=== PATIENT | male | born 1960 | race Caucasian/White ===

== ENCOUNTER → 2020-07-01 10:40 | Outpatient (CLI) | payer OTHER, SELFPAY ==
[2020-07-01 12:37] LABS: Absolute Lymphocyte Count 1.71 X10^3/uL (0.83-4.51); Absolute Neutrophil Count 5.6 X10^3/uL (2.0-7.7); Basophil# 0.07 X10^3/uL; Basophil% 0.9 % (0-1); Eosinophils% 1.2 % (0-5); Hematocrit 44.1 % (40-54); Hemoglobin 14.6 g/dL (13.0-16.5); Lymphocyte # 1.71 X10^3/ul (4.0); Lymphocyte % 20.9 % (19-41); Mean Corp Hgb Conc 33.1 g/dL (32-36); Mean Corpuscular Hgb 28.7 pg (27.0-32.0); Mean Corpuscular Volume 86.8 fL (80-94); Mean Platelet Vol. 9.9 fl (6.2-12.0); Monocyte# 0.69 X10^3/uL; Monocyte% 8.4 % (0-10); NRBC Flagged by Analyzer 0 % (0-5); Neutrophil # 5.58 X10^3/uL (2.7-7.7); Neutrophil % 68.1 % (47-70); Platelet Count 333 K/mm3 (150-450); RBC Distribution Width CV 12.2 % (11.6-14.6); RBC Distribution Width SD 38.8 fl (35.1-43.9); Red Blood Count 5.08 M/mm3 (4.6-6.2); White Blood Count 8.2 K/mm3 (4.4-11.0)
[2020-07-01 13:06] LABS: AST(SGOT) 29 U/L (15-37); Alanine Aminotransfer ALT/SGPT 42 U/L (16-61); Albumin, Serum 3.7 g/dL (3.2-5.0); Alkaline Phosphatase 63 U/L (45-117); Anion Gap 8 (5-15); BUN 15 mg/dL (7-18); BUN/Creat Ratio 14.9 RATIO (10-20); Calcium,Total 8.3 mg/dL (8.5-10.1); Chloride 106 mmol/L (98-107); Cholesterol 160 mg/dL (200); Creatinine, Serum 1.01 mg/dL (0.70-1.30); EST Glomerular Filtration Rate 80 mL/min (>60); Est Glom Filt Rate - Afr Amer 97 mL/min (>60); Globulin 3.7 g/dL (2.2-4.2); Glucose 89 mg/dL (74-106); High Density Lipoprotein 59 mg/dL; PSA,Total - Annual Screen 0.62 ng/mL (0.00-4.00); Potassium 3.7 mmol/L (3.5-5.1); Protein, Total 7.4 g/dL (6.4-8.2); Sodium Level 138 mmol/L (136-145); T4 Free Direct 1.19 ng/dL (0.76-1.46); Thyroid Stim Hormone (TSH) 1.05 uIU/mL (0.358-3.74); Triglycerides 48 mg/dL; Very Low Density Lipoprotein 10 mg/dL (5-40)
== END ==
PROVIDERS: PCP Family Medicine; Referring Provider Family Medicine; Visit Provider Family Medicine
DX: Z00.00 Encounter for general adult medical examination without abnormal findings (principal); E04.1 Nontoxic single thyroid nodule; Z12.5 Encounter for screening for malignant neoplasm of prostate
CPT/HCPCS: 36415; 80053; 80061; 84153; 84439; 84443; 85025; G0103

== ENCOUNTER → 2020-07-14 12:35 | Outpatient (CLI) | payer OTHER, SELFPAY ==
--- NOTE | 2020-07-14 12:41 | US_ITS ---
STUDY: THYROID ULTRASOUND REASON FOR EXAM: Male, 59 years old. Nodule TECHNIQUE: Ultrasound evaluation of the thyroid was performed with real-time and static michelle-scale imaging. COMPARISON: None. FINDINGS: RIGHT LOBE: The right lobe of the thyroid gland measures 4.9 cm x 2.5 cm x 2.9 cm. There is a heterogeneous echotexture. There is a 7 mm x 9 mm x 7 mm cystic and solid nodule in the lower pole of the right lobe. LEFT LOBE: The left lobe of the thyroid gland measures 3.9 cm x 2.3 cm x 2.3 cm. There is a homogeneous echotexture. There are no demonstrated solid, cystic or complex lesions. ISTHMUS: The isthmus measures 6.0 mm. The regional lymph nodes are normal. US/Thyroid IMPRESSION: There is a 7 mm x 9 mm x 7 mm cystic and solid nodule in the lower pole of the right lobe of the thyroid Electronically Signed: Yimi Jensen, at 14:57 EST , Service support ,
== END ==
PROVIDERS: PCP Family Medicine; Referring Provider Family Medicine; Visit Provider Family Medicine
DX: E04.1 Nontoxic single thyroid nodule (principal)
CPT/HCPCS: 76536

== ENCOUNTER 2020-09-17 05:42 | Day surgery (SDC) | payer OTHER, SELFPAY ==
[2020-08-12 14:14] LABS: Probe Check PASS; Specimen Processing Control PASS
[2020-09-17] VITALS (8 sets, daily range): BP systolic 105–137; BP diastolic 62–88; PULSE 62–66; RESP 16; TEMP 36.2–36.7; O2SAT 92–100; BMI 27.8
--- NOTE | 2020-09-17 06:00 | PCM.HP.STD ---
Problem List (1) Screening for intestinal cancer Status: Acute History of Present Illness Date of Admission: 09/17/20 The patient is a 59 year old M who presents for screening colonoscopy today. He has no symptoms. He has not had a previous exam. He was to have this approximately 4 to 5 weeks ago but tested positive for COVID-19. He claims he was completely asymptomatic throughout that entire process. He is currently denying chest pain shortness of breath abdominal pain change in bowel habits. No history of DVT Past Medical History Allergies No Known Allergies Allergy (Verified 08/12/20 09:17) Home Medications: Ambulatory Orders Medication Instructions Recorded NK 08/12/20 Smoking Status: Never smoker Tobacco Use: Non-smoker Review of Systems Constitutional: Denies: Chills, Fever Respiratory: Denies: Cough, Shortness of Breath Gastrointestinal: Denies: Abdominal Pain, Nausea, Melena, Vomiting Endocrine: Denies: Change in Body Habitus VTE Information - Inpt Only VTE Present on Admission: No - Physical Exam General: Alert, Oriented x3, Cooperative, No apparent distress HEENT: Atraumatic Oral: Moist Mucosa Lungs: Clear to auscultation, Normal air movement Cardiovascular: Regular rate, Regular Rhythm Abdomen: Soft, Non Tender Extremities: No Calf Tenderness Psych/Mental Status: Normal Affect Assessment/Plan All Active Problems Screening for intestinal cancer (Acute) The patient presents for screening colonoscopy today. He has not had a previous. He presents via open access. He is aware of the technique, benefit, risk, alternatives. He has had an opportunity to ask and have questions answered. We will proceed as noted. Kalin Pulliam M.D., F.A.C.S.
[2020-09-17] MEDS: Lactated Ringers 1,000 ML 100 ML IV (06:14)
--- NOTE | 2020-09-17 06:30 | COLBX_PTH ---
PATIENT: AFSANEH NOVAK LOC: [facility] U#:[id number] AGE/SX: 59/M ROOM: RE09/17/[address]: Dr. Kalin Pulliam MD : 1960 BED: DIS: 09/17/2020 SPEC #: [id number] RECD: 09/17/20 11:26 STATUS: WENCESLAO PINONNika #: [id number] DARELL: 09/17/20 06:[address]: Kalin Pulliam DEPT: SURGICAL PATHOLOGY RECD BY: Ernestina Felipe ENTERED: 09/17/20 12:08 SP TYPE: COLON BX OTHR DR: Dr. Chilango Welsh MD Tissues: Cecum, NOS Procedures: Surgery Specimen Level IV HEADER OPERATION: Colonoscopy - open access (MOD) PRE-OP DIAGNOSIS: Screening for intestinal cancer TISSUE SUBMITTED: Cecal polyp MICROSCOPIC DIAGNOSIS Cecal polyp, biopsy: Fragments of tubular adenoma. SJ:emely 09/20/2020 MICROSCOPIC DESCRIPTION Slides are reviewed. GROSS DESCRIPTION Received in fixative is one container labeled with the patient's name and designated cecal polyp. The specimen consists of multiple irregular fragments of light vasquez soft tissue that in aggregate measure 2.5 x 0.3 x 0.1 cm. The specimen is totally submitted in one cassette. / SJ:emely 09/17/20 TC:1 CPT: 90412
--- NOTE | 2020-09-17 06:52 | OP.CCLET_ITS ---
09/17/2020 Chilango Welsh [address] [place] [address] Re : Colonoscopy procedure for Aaron Bowers Dear Dr. Welsh This procedure was performed on Thursday, September 17, 2020. My impressions and recommendations are as follows: Impressions : - Non-thrombosed external hemorrhoids, non-thrombosed internal hemorrhoids and internal hemorrhoids that prolapse with straining, but spontaneously regress to the resting position (Grade II) found on digital rectal exam. - One 11 mm polyp in the cecum, removed using injection-lift and a cold snare. Resected and retrieved. Forceps used to complete removal and hemostatic clip x 1 placed. No bleeding at completion -Minimal Diverticulosis in the sigmoid colon. - The examination was otherwise normal. Recommendations : - Discharge patient to home. - Resume previous diet. - Continue present medications. - Repeat colonoscopy in 5 years for surveillance based on pathology results. - Telephone my office for pathology results in 1 week. My findings are described in the full procedure note, which is enclosed. If I can be of further assistance, please feel free to contact me at Doctor phone number(s): Work: . Sincerely, Kalin Pulliam MD 09/17/2020 6:51:49 AM This report has been signed electronically.
--- NOTE | 2020-09-17 06:52 | OP.COLON_ITS ---
Patient Name: Aaron Bowers Procedure Date: 09/17/2020 6:16 AM Date of : 1960 Age: 59 Procedure: Colonoscopy Indications: Screening for colorectal malignant neoplasm, Screening in patient at increased risk: Family history of 1st-degree relative with colorectal cancer Providers: Kalin Pulliam MD Medicines: Midazolam 4 mg IV, Meperidine 100 mg IV Patient Profile: Last Colonoscopy: none. The patient's first colonoscopy is today. Complications: No immediate complications. Procedure: Pre-Anesthesia Assessment: - Prior to the procedure, a History and Physical was performed, and patient medications and allergies were reviewed. The patient's tolerance of previous anesthesia was also reviewed. The risks and benefits of the procedure and the sedation options and risks were discussed with the patient. All questions were answered, and informed consent was obtained. Prior Anticoagulants: The patient has taken no previous anticoagulant or antiplatelet agents. ASA Grade Assessment: II - A patient with mild systemic disease. After reviewing the risks and benefits, the patient was deemed in satisfactory condition to undergo the procedure. After I obtained informed consent, the scope was passed under direct vision. Throughout the procedure, the patient's blood pressure, pulse, and oxygen saturations were monitored continuously. The Colonoscope was introduced through the anus and advanced to the cecum, identified by appendiceal orifice and ileocecal valve. The colonoscopy was performed without difficulty. The patient tolerated the procedure well. The quality of the bowel preparation was good. The ileocecal valve and the appendiceal orifice were photographed. Moderate Sedation: Moderate (conscious) sedation was personally administered by the endoscopist. The following parameters were monitored: oxygen saturation, heart rate, blood pressure, and response to care. Total physician intraservice time was 15 minutes. Scope In: 6:28:42 AM Scope Withdrawal Time 0 hours 14 minutes 24 seconds Scope Out: 6:45:26 AM Total Procedure Duration Time 0 hours 16 minutes 44 seconds Findings: The digital rectal exam findings include non-thrombosed external hemorrhoids, non-thrombosed internal hemorrhoids and internal hemorrhoids that prolapse with straining, but spontaneously regress to the resting position (Grade II). Pertinent negatives include normal prostate (size, shape, and consistency). A 11 mm polyp was found in the cecum. The polyp was sessile. The polyp was removed with a saline injection-lift technique using a hot snare. Resection and retrieval were complete. A few diverticula were found in the sigmoid colon. The exam was otherwise without abnormality. Impression: - Non-thrombosed external hemorrhoids, non-thrombosed internal hemorrhoids and internal hemorrhoids that prolapse with straining, but spontaneously regress to the resting position (Grade II) found on digital rectal exam. - One 11 mm polyp in the cecum, removed using injection-lift and a cold snare. Resected and retrieved. Forceps used to complete removal and hemostatic clip x 1 placed. No bleeding at completion -Minimal Diverticulosis in the sigmoid colon. - The examination was otherwise normal. Recommendation: - Discharge patient to home. - Resume previous diet. - Continue present medications. - Repeat colonoscopy in 5 years for surveillance based on pathology results. - Telephone my office for pathology results in 1 week. Procedure Code(s): --- Professional --- 36496, Colonoscopy, flexible; with removal of tumor(s), polyp(s), or other lesion(s) by snare technique 65017, Colonoscopy, flexible; with directed submucosal injection(s), any substance 71901, 59, Moderate sedation services provided by the same physician or other qualified health day care center director performing the diagnostic or therapeutic service that the sedation supports, requiring the presence of an independent trained observer to assist in the monitoring of the patient's level of consciousness and physiological status; initial 15 minutes of intraservice time, patient age 5 years or older Diagnosis Code(s): --- Professional --- Z12.11, Encounter for screening for malignant neoplasm of colon Z80.0, Family history of malignant neoplasm of digestive organs K64.1, Second degree hemorrhoids K64.4, Residual hemorrhoidal skin tags D12.0, Benign neoplasm of cecum K57.30, Diverticulosis of large intestine without perforation or abscess without bleeding CPT copyright 2017 [employer]. All rights reserved. The codes documented in this report are preliminary and upon cena review may be revised to meet current compliance requirements. Kalin Pulliam MD 09/17/2020 6:51:49 AM This report has been signed electronically. Number of Addenda: 0 Note Initiated On: 09/17/2020 6:16 AM
== END 2020-09-17 07:52 | disposition home or self-care (01) ==
LOC: EN 05:43 → AC 05:43
PROVIDERS: PCP Family Medicine; Referring Provider Family Medicine; Visit Provider Surgery
PROC: 0DJD8ZZ Inspection of Lower Intestinal Tract, Via Natural or Artificial Opening Endoscopic (ICD-10-PCS; CPT 45378; principal; 2020-09-17 06:25)
DX: Z12.11 Encounter for screening for malignant neoplasm of colon (principal); D12.0 Benign neoplasm of cecum; K57.30 Diverticulosis of large intestine without perforation or abscess without bleeding; K64.1 Second degree hemorrhoids; K64.4 Residual hemorrhoidal skin tags; Z86.19 Personal history of other infectious and parasitic diseases; Z80.0 Family history of malignant neoplasm of digestive organs
CPT/HCPCS: 45381; 45385; 87426; 87635; 88305; 99152; 99153; C9803; J7120; A4216; U0002

== ENCOUNTER → 2021-01-10 08:22 | Outpatient (CLI) | payer OTHER, SELFPAY ==
[2020-09-17 06:01] VITALS: BMI 27.8
--- NOTE | 2021-01-10 08:25 | US_ITS ---
STUDY: THYROID ULTRASOUND REASON FOR EXAM: Male, 60 years old. Thyroid nodule. TECHNIQUE: Ultrasound evaluation of the thyroid was performed with real-time and static michelle-scale imaging. COMPARISON: Comparison is made with prior study of 07/14/2020. FINDINGS: RIGHT LOBE: The right lobe of the thyroid gland is enlarged and measures 5 cm x 1.8 cm x 2.4 cm. There is a homogeneous echotexture. There are 3 subcentimeter nodules in the right lobe. There is a 6 mm x 5 mm x 5 mm cyst. This also evidence of a 4 mm x 4 mm x 4 mm hypoechoic solid nodule as well as an 8 mm x 9 mm x 7 mm complex nodule in the lower pole. This is unchanged. LEFT LOBE: The left lobe of the thyroid gland measures 4.2 cm x 1.8 signed by 1.8 cm. There is a homogeneous echotexture. There are no demonstrated solid, cystic or complex lesions. ISTHMUS: The isthmus is enlarged and measures 8 mm. The regional lymph nodes are normal. US/Thyroid IMPRESSION: Enlarged right lobe of the thyroid with 3 subcentimeter nodules. There has been no change of the 8 mm x 9 mm x 7 mm solid and cystic nodule in the lower pole of the right lobe. Electronically Signed: Yimi Jensen MD at 10:00 EDT , Service support ,
== END ==
PROVIDERS: PCP Family Medicine; Referring Provider Family Medicine; Visit Provider Family Medicine
DX: E04.1 Nontoxic single thyroid nodule (principal)
CPT/HCPCS: 76536

== ENCOUNTER → 2021-07-14 11:03 | Outpatient (CLI) | payer OTHER, SELFPAY ==
[2021-07-14 12:42] LABS: PSA,Total - Annual Screen 0.67 ng/mL (0.00-4.00)
== END ==
PROVIDERS: PCP Family Medicine; Referring Provider Family Medicine; Visit Provider Family Medicine
DX: Z20.822 Contact with and (suspected) exposure to COVID-19 (principal); Z12.5 Encounter for screening for malignant neoplasm of prostate
CPT/HCPCS: 36415; 84153; 87635; U0005; G0103; U0003

== ENCOUNTER → 2022-04-12 | Outpatient (CLI) | payer OTHER, SELFPAY ==
[2022-04-12 09:29] LABS: Lyme Ab Screen Interpretation REF LAB
== END | disposition home or self-care (01) ==
LOC: MFPLAB 09:28
PROVIDERS: PCP Family Medicine; Referring Provider Family Medicine; Visit Provider Nurse Practitioner Family
DX: Z00.00 Encounter for general adult medical examination without abnormal findings (principal)
CPT/HCPCS: 36415; 86618

== ENCOUNTER → 2022-08-02 | Outpatient (CLI) | payer OTHER, SELFPAY ==
[2022-08-02 12:24] LABS: Absolute Lymphocyte Count 1.83 X10^3/uL (0.83-4.51); Basophil# 0.05 X10^3/uL; Basophil% 0.7 % (0-1); Eosinophil# 0.23 X10^3/uL; Eosinophils% 3.4 % (0-5); Hematocrit 44.9 % (40-54); Hemoglobin 15.3 g/dL (13.0-16.5); Lymphocyte # 1.83 X10^3/ul (0.83-4.51); Lymphocyte % 26.8 % (19-41); Mean Corp Hgb Conc 34.1 g/dL (32-36); Mean Corpuscular Hgb 29.8 pg (27.0-32.0); Mean Corpuscular Volume 87.4 fL (80-94); Mean Platelet Vol. 9.8 fl (6.2-12.0); Monocyte# 0.75 X10^3/uL; NRBC Flagged by Analyzer 0 % (0-5); Neutrophil # 3.96 X10^3/uL (2.7-7.7); Neutrophil % 57.8 % (47-70); Platelet Count 305 K/mm3 (150-450); RBC Distribution Width CV 12.8 % (11.6-14.6); RBC Distribution Width SD 40.4 fl (35.1-43.9); Red Blood Count 5.14 M/mm3 (4.6-6.2); White Blood Count 6.8 K/mm3 (4.4-11.0)
[2022-08-02 13:09] LABS: ALB/GLOB Ratio 1.2 RATIO (0.9-2.4); AST(SGOT) 25 U/L (15-37); Alanine Aminotransfer ALT/SGPT 29 U/L (16-61); Albumin, Serum 3.9 g/dL (3.2-5.0); Alkaline Phosphatase 66 U/L (45-117); Anion Gap 7 (5-15); BUN 17 mg/dL (7-18); BUN/Creat Ratio 17.9 RATIO (10-20); Calcium,Total 9.1 mg/dL (8.5-10.1); Chloride 104 mmol/L (98-107); Cholesterol 168 mg/dL (200); Creatinine, Serum 0.95 mg/dL (0.70-1.30); EST Glomerular Filtration Rate 85 mL/min (>60); Est Glom Filt Rate - Afr Amer 103 mL/min (>60); Globulin 3.2 g/dL (2.2-4.2); Glucose 88 mg/dL (74-106); High Density Lipoprotein 51 mg/dL; PSA,Total - Annual Screen 0.76 ng/mL (0.00-4.00); Potassium 4.1 mmol/L (3.5-5.1); Protein, Total 7.1 g/dL (6.4-8.2); Sodium Level 140 mmol/L (136-145); Thyroid Stim Hormone (TSH) 1.02 uIU/mL (0.358-3.74); Triglycerides 56 mg/dL; Very Low Density Lipoprotein 11 mg/dL (5-40)
== END | disposition home or self-care (01) ==
LOC: MFPLAB 10:59
PROVIDERS: PCP Family Medicine; Referring Provider Family Medicine; Visit Provider Family Medicine
DX: Z00.00 Encounter for general adult medical examination without abnormal findings (principal)
CPT/HCPCS: 36415; 80053; 80061; 84153; 84443; 85025; G0103

== ENCOUNTER → 2022-08-19 | Outpatient (CLI) | payer OTHER, SELFPAY ==
--- NOTE | 2022-08-19 07:52 | US_ITS ---
STUDY: THYROID ULTRASOUND REASON FOR EXAM: Male, 61 years old. THYROID NODULE TECHNIQUE: Ultrasound evaluation of the thyroid was performed with real-time and static michelle-scale imaging. COMPARISON: 01/10/2021. FINDINGS: RIGHT LOBE: The right lobe of the thyroid gland measures 5.1 x 2.1 x 2.6 cm. There is a homogeneous echotexture. Solid nodule in the right upper thyroid lobe measuring 0.5 x 0.3 x 0.4 cm, previously 0.4 x 0.4 x 0.4 cm. Anechoic cyst in the right mid thyroid lobe measuring 0.5 x 0.4 x 0.4 cm, previously 0.6 x 0.5 x 0.5 cm. Solid nodule in the right lower thyroid lobe measuring 0.8 x 0.9 x 0.7 cm, previously 0.8 x 0.9 x 0.7 cm. LEFT LOBE: The left lobe of the thyroid gland measures 4.2 x 1.7 x 2.2 cm. There is a homogeneous echotexture. There are no demonstrated solid, cystic or complex lesions. ISTHMUS: The isthmus measures 6 mm. US/Thyroid IMPRESSION: 1. Solid nodule in the right upper thyroid lobe measuring 0.5 x 0.3 x 0.4 cm, previously 0.4 x 0.4 x 0.4 cm. This nodule is moderately suspicious but no FNA or follow-up is necessary given the small size of this nodule. 2. Anechoic cyst in the right mid thyroid lobe measuring 0.5 x 0.4 x 0.4 cm, previously 0.6 x 0.5 x 0.5 cm. This nodule is benign and no FNA or follow-up is necessary. 3. Solid nodule in the right lower thyroid lobe measuring 0.8 x 0.9 x 0.7 cm, previously 0.8 x 0.9 x 0.7 cm. This is unchanged. This nodule is moderately suspicious but no FNA or follow-up is necessary given the small size of this nodule. 4. Normal left thyroid lobe and thyroid isthmus. Electronically Signed: Jason Barth MD at 12:57 EST ,
== END | disposition home or self-care (01) ==
LOC: US 07:50
PROVIDERS: PCP Family Medicine; Visit Provider Family Medicine
DX: E04.1 Nontoxic single thyroid nodule (principal)
CPT/HCPCS: 76536

== ENCOUNTER → 2023-08-07 | Outpatient (CLI) | payer OTHER, SELFPAY ==
[2023-08-07 10:12] LABS: Absolute Lymphocyte Count 1.86 X10^3/uL (0.83-4.51); Absolute Neutrophil Count 4.8 X10^3/uL (2.0-7.7); Basophil# 0.07 X10^3/uL; Basophil% 0.9 % (0-1); Eosinophil# 0.29 X10^3/uL; Eosinophils% 3.8 % (0-5); Hemoglobin 14.2 g/dL (13.0-16.5); Lymphocyte # 1.86 X10^3/ul (0.83-4.51); Lymphocyte % 24.1 % (19-41); Mean Corp Hgb Conc 32.3 g/dL (32-36); Mean Corpuscular Hgb 28.6 pg (27.0-32.0); Mean Corpuscular Volume 88.5 fL (80-94); Mean Platelet Vol. 9.7 fl (6.2-12.0); Monocyte# 0.61 X10^3/uL; Monocyte% 7.9 % (0-10); NRBC Flagged by Analyzer 0 % (0-5); Neutrophil # 4.84 X10^3/uL (2.7-7.7); Neutrophil % 62.7 % (47-70); Platelet Count 346 K/mm3 (150-450); RBC Distribution Width CV 12.5 % (11.6-14.6); RBC Distribution Width SD 40.1 fl (35.1-43.9); Red Blood Count 4.97 M/mm3 (4.6-6.2); White Blood Count 7.7 K/mm3 (4.4-11.0)
[2023-08-07 11:09] LABS: AST(SGOT) 18 U/L (15-37); Alanine Aminotransfer ALT/SGPT 27 U/L (16-61); Albumin, Serum 3.4 g/dL (3.2-5.0); Alkaline Phosphatase 62 U/L (45-117); Anion Gap 3 (5-15); BUN 14 mg/dL (7-18); Calcium,Total 8.2 mg/dL (8.5-10.1); Chloride 108 mmol/L (98-107); Cholesterol 154 mg/dL (200); Creatinine, Serum 0.93 mg/dL (0.70-1.30); EST Glomerular Filtration Rate 87 mL/min (>60); Est Glom Filt Rate - Afr Amer 105 mL/min (>60); Globulin 3.3 g/dL (2.2-4.2); Glucose 94 mg/dL (74-106); High Density Lipoprotein 45 mg/dL; PSA,Total - Annual Screen 0.99 ng/mL (0.00-4.00); Potassium 3.9 mmol/L (3.5-5.1); Protein, Total 6.7 g/dL (6.4-8.2); Sodium Level 140 mmol/L (136-145); Triglycerides 89 mg/dL; Very Low Density Lipoprotein 18 mg/dL (5-40)
== END | disposition home or self-care (01) ==
LOC: MFPLAB 08:46
PROVIDERS: PCP Family Medicine; Visit Provider Family Medicine
DX: Z00.00 Encounter for general adult medical examination without abnormal findings (principal); Z12.5 Encounter for screening for malignant neoplasm of prostate
CPT/HCPCS: 36415; 80053; 80061; 84153; 85025; G0103

== ENCOUNTER → 2023-10-17 | Outpatient (CLI) | payer OTHER, SELFPAY ==
--- OUTSIDE RECORDS SUMMARY | 2023-10-17 10:23 | XMS RPT_ITS | CCD ---
Author Name Unknown Address [address] [place] [address] Organization [facility] Care Team Providers Care Command And Control Name Role Phone Asaf HOANG Unavailable Unavailable MIAH PATINO Unavailable Unavailable Nina Hoang Unavailable Unavailable Nina Hoang Unavailable Unavailable Miah Patino Primary Care Provider JUAN MARS Admitting Unavailable JUAN MARS Attending Unavailable MIAH PATINO Primary Care Unavailable Richard Guzman [phone] Consulting Unavailable EUNICE GOLDSTEIN Consulting Unavailable MIAH PATINO Consulting Unavailable Miah Patino Primary Care Provider [phone] Miah Patino MD Primary Care Provider [phone] BIGG HOANG Referring Unavailable BIGG HOANG Admitting Unavailable MIAH PATINO Primary Care Unavailable MIAH PATINO Primary Care Unavailable BIGG HOANG Referring Unavailable BIGG HOANG Admitting Unavailable Unavailable Primary Care Provider UnavailBIGG Duron Admitting Unavailable BIGG HOANG Attending Unavailable MIAH PATINO Primary Care Unavailable No, Physician Primary Care Provider UnavailMiah Hayden MD Primary Care Provider Miah Trivedi MD Primary Care Provider Miah Trivedi MD Primary Care Provider Free, Text Entry Unavailable Unavailable Maya Brewer Unavailable Unavailable Bety Tanner Unavailable Unavailable Miah Trivedi MD Primary Care Provider MIAH TRIVEDI Primary Care Unavailable CASIE DENNIS Attending Unavailable MIAH TRIVEDI Primary Care Unavailable TALON SR Attending Unavailable Nina HOANG Attending Unavailable MIAH TRIVEDI Primary Care Unavailable Asaf HOANG Attending Unavailable MIAH TRIVEDI [facility] Unavailable Asaf HOANG Attending Unavailable Asaf HOANG Attending Unavailable [facility] MIAH [facility] Unavailable Medications Current Medications Medication Drug Class(es) Dates Sig (Normalized) Sig (Original) acetaminophen 325 mg / oxyCODONE hydrochloride 5 mg oral tablet (3 sources) Opioid Agonist Start: 10-17-2021 End: 10-24-2021 take 1 tablet by mouth every six hours as needed for pain oxyCODONE-acetami nophen (PERCOCET) 5-325 mg per tablet Indications: Left shoulder pain, unspecified chronicity Take 1 (one) tablet by mouth every 6 (six) hours as needed for pain 7 days supply . 28 tablet 0 10/17/2021 10/24/2021 Active [id number] 200 actuat albuterol 0.09 mg/actuat metered dose inhaler (1 source) beta2-Adrenergic Agonist Start: 07-24-2023 take 2 puff(s) by inhalation every six hours as needed for wheezing albuterol 90 mcg/actuation inhaler Inhale 2 (two) puffs every 6 (six) hours as needed for wheezing . 1 g 0 07/24/2023 Active amoxicillin 500 mg oral tablet (1 source) Penicillin-class Antibacterial Start: 02-25-2022 End: 03-10-2022 take 1 tablet by mouth three times daily at mealtime amoxicillin 500 mg oral tablet ; 1 tab(s) orally 3 times a day x 14 days. Take with food. Quantity: 42 Refills: 0 Ordered: 25-Feb-2022 Bety Tanner Start: 25-Feb-2022 End: 10-Mar-2022 Generic Substitution Allowed Comments: Finish all this medication unless otherwise directed by prescriber. Completed/Discontinued Medications Medication Drug Class(es) Dates Sig (Normalized) Sig (Original) azithromycin 250 mg oral tablet (2 sources) Macrolide Antimicrobial Start: 02-21-2022 End: 02-25-2022 azithromycin 250 mg oral tablet ; 2 tab(s) orally once a day on day 1, then 1 tablet orally on days 2-5 Quantity: 1 Refills: 0 Ordered: 21-Feb-2022 Maya Brewer Start: 21-Feb-2022 End: 25-Feb-2022 Status: Discontinued Generic Substitution Allowed Comments: Do not take dairy products, antacids, or iron preparations within one hour of this medication.Finish all this medication unless otherwise directed by prescriber. Problems Active Problems Problem Classification Problem Date Documented Date Episodic/Chronic Acute bronchitis (2 sources) Acute bronchitis due to other specified organisms; Translations: [Acute bronchitis due to other specified organisms] Onset: 07-24-2023 Episodic Blindness and vision defects (4 sources) Severe myopia; Translations: [Myopia, bilateral] Onset: 09-07-2014 Episodic Cataract (2 sources) Bilateral pseudophakia; Translations: [Presence of intraocular lens] Onset: 11-26-2019 Chronic Glaucoma (2 sources) Ocular hypertension; Translations: [Ocular hypertension, bilateral] Onset: 04-09-2019 04-09-2019 Chronic Immunizations and screening for infectious disease (2 sources) Contact with and (suspected) exposure to other viral communicable diseases; Translations: [Exposure to SARS-associated coronavirus] Episodic Inflammation; infection of eye (except that caused by tuberculosis or sexually transmitteddisease) (1 source) Bilateral punctate keratitis of eyes; Translations: [Punctate keratitis, bilateral] Onset: 05-27-2018 05-27-2018 Chronic Open wounds of extremities (2 sources) Laceration without foreign body of left little finger without damage to nail, initial encounter; Translations: [LAC W/O FB LT LF W/O DMG NAIL INIT] Onset: 12-18-2019 Episodic Osteoarthritis (20 sources) Bilateral arthritis of knees; Translations: [Bilateral primary osteoarthritis of knee] Onset: 10-04-2019 10-04-2019 Chronic Other eye disorders (2 sources) Optic cupping; Translations: [Glaucomatous optic atrophy, bilateral] Onset: 11-26-2019 Chronic Other eye disorders (1 source) Bilateral vitreous floaters; Translations: [Other vitreous opacities, bilateral] Onset: 10-24-2016 10-24-2016 Chronic Other eye disorders (1 source) Degenerative disorder of eye; Translations: [Degenerative myopia, bilateral] Onset: 05-27-2018 05-27-2018 Chronic Other infections; including parasitic (1 source) Erythema chronica migrans; Translations: [Lyme Disease] 02-25-2022 Episodic Other non-traumatic joint disorders (1 source) Pain in left knee; Translations: [Pain in left knee] Episodic Other non-traumatic joint disorders (4 sources) Shoulder pain; Translations: [Pain in left shoulder] Episodic Other non-traumatic joint disorders (1 source) Pain in right knee; Translations: [Right knee pain, unspecified chronicity] Other non-traumatic joint disorders (3 sources) Bilateral arthritis of knees; Translations: [Arthritis of both knees] Onset: 10-04-2019 10-04-2019 Other upper respiratory infections (1 source) Acute upper respiratory infection; Translations: [Acute upper respiratory infections of unspecified site] 02-21-2022 Episodic Retinal detachments; defects; vascular occlusion; and retinopathy (5 sources) Epiretinal membrane of right eye; Translations: [Puckering of macula, right eye] Onset: 10-24-2016 Chronic Unclassified (2 sources) SPIDER BITE 02-21-2022 Past or Other Problems Problem Classification Problem Date Documented Da te Episodic/Chronic E Codes: Natural/environment (2 sources) Bitten or stung by nonvenomous insect and other nonvenomous arthropods, initial encounter; Translations: [Bitten or stung by nonvenomous insect and other nonvenomous arthropods, initial encounter] Onset: 01-01-2023 Episodic Other eye disorders (1 source) Marginal corneal ulcer of right eye; Translations: [Marginal corneal ulcer, right eye] Onset: 05-09-2018 05-09-2018 Episodic Other eye disorders (1 source) H/O: L cataract extraction; Translations: [Cataract extraction status, left eye] Onset: 12-27-2018 12-27-2018 Episodic Other eye disorders (1 source) H/O: R cataract extraction; Translations: [Cataract extraction status, right eye] Onset: 01-23-2019 01-23-2019 Episodic Other non-traumatic joint disorders (2 sources) Pain in right shoulder; Translations: [Pain in right shoulder] Onset: 03-21-2017 Episodic Other non-traumatic joint disorders (20 sources) Disorder of shoulder; Translations: [Bursitis/tendoniti s, shoulder] Onset: 02-17-2016 02-17-2016 Episodic Sprains and strains (20 sources) Glenoid labrum tear; Translations: [Superior glenoid labrum lesion of unspecified shoulder, initial encounter] Onset: 03-21-2017 03-21-2017 Episodic Superficial injury; contusion (2 sources) Insect bite (nonvenomous), left thigh, initial encounter; Translations: [Insect bite (nonvenomous), left thigh, initial encounter] Onset: 01-01-2023 Episodic Results Test Name Value Interpretation Reference Range Facil ity Vital Signs Date Time Vital Sign Value Performing Clinician Facility 09-26-2023 12:58-0500 Body height 182.9 cm Asaf Hoang MD Work Phone: [facility] 09-26-2023 12:58-0500 Body mass index (BMI) [Ratio] 27.8 kg/m2 Asaf Hoang MD Work Phone: [facility] 09-26-2023 12:58-0500 Body weight 92.99 kg Asaf Hoang MD Work Phone: [facility] 10-18-2022 12:29-0500 Body height 182.9 cm Asaf Hoang MD Work Phone: [facility] 10-18-2022 12:29-0500 Body mass index (BMI) [Ratio] 27.12 kg/m2 Asaf Hoang MD Work Phone: [facility] 10-18-2022 12:29-0500 Body weight 90.72 kg Asaf Hoang MD Work Phone: [facility] 10-18-2022 12:29-0500 Respiratory rate 18 /min Asaf Hoang MD Work Phone: [facility] 04-19-2022 13:39-0400 Body mass index (BMI) [Ratio] 27.12 kg/m2 Asaf Hoang MD Work Phone: [facility] 04-19-2022 13:39-0400 Body weight 90.72 kg Asaf Hoang MD Work Phone: [facility] 02-25-2022 11:34-0400 Body height 182.8 cm Text Entry Free [facility] 02-25-2022 11:34-0400 Body temperature 98.24 [degF] Text Entry Free [facility] 02-25-2022 11:34-0400 Diastolic blood pressure 88 mm[Hg] Text Entry Free [facility] 02-25-2022 11:34-0400 Heart rate 71 /min Text Entry Free [facility] 02-25-2022 11:34-0400 Respiratory rate 16 /min Text Entry Free [facility] 02-25-2022 11:34-0400 SaO2% (BldA) [Mass fraction] 97 % Text Entry Free [facility] 02-25-2022 11:34-0400 Systolic blood pressure 142 mm[Hg] Text Entry Free [facility] 02-22-2022 15:38-0400 Body height 182.9 cm Asaf Hoang MD Work Phone: [facility] 02-22-2022 15:38-0400 Body mass index (BMI) [Ratio] 27.12 kg/m2 Asaf Hoang MD Work Phone: [facility] 02-22-2022 15:38-0400 Body weight 90.72 kg Asaf Hoang MD Work Phone: [facility] 01-25-2022 12:40-0400 Body height 182.9 cm Asaf Hoang MD Work Phone: [facility] 01-25-2022 12:40-0400 Body mass index (BMI) [Ratio] 27.12 kg/m2 Asaf Hoang MD Work Phone: [facility] 01-25-2022 12:40-0400 Body weight 90.72 kg Asaf Hoang MD Work Phone: [facility] 01-25-2022 12:40-0400 Respiratory rate 18 /min Asaf Hoang MD Work Phone: [facility] 12-30-2021 11:34-0400 Body height 182.9 cm Asaf Hoang MD Work Phone: [facility] 12-30-2021 11:34-0400 Body mass index (BMI) [Ratio] 27.12 kg/m2 Asaf Hoang MD Work Phone: [facility] 12-30-2021 11:34-0400 Body weight 90.72 kg Asaf Hoang MD Work Phone: [facility] 12-30-2021 11:34-0400 Respiratory rate 18 /min Asaf Hoang MD Work Phone: [facility] 11-30-2021 13:02-0400 Body height 182.9 cm Asaf Hoang MD Work Phone: [facility] 11-30-2021 13:02-0400 Body mass index (BMI) [Ratio] 27.12 kg/m2 Asaf Hoang MD Work Phone: [facility] 11-30-2021 13:02-0400 Body weight 90.72 kg Asaf Hoang MD Work Phone: [facility] 08-17-2021 15:02-0500 Body height 182.9 cm Asaf Hoang MD Work Phone: [facility] 08-17-2021 15:02-0500 Body mass index (BMI) [Ratio] 25.09 kg/m2 Asaf Hoang MD Work Phone: [facility] 08-17-2021 15:02-0500 Body weight 83.92 kg Asaf Hoang MD Work Phone: [facility] 08-17-2021 15:02-0500 Respiratory rate 18 /min Asaf Hoang MD Work Phone: [facility] 10-02-2019 13:04-0500 BMI (Body Mass Index) 25.09 kg/m2 Asaf Hoang [facility] 10-02-2019 13:04-0500 Body weight 83.92 kg Asaf Hoang [facility] 10-02-2019 13:04-0500 Height 182.9 cm Asaf Hoang [facility] 10-02-2019 13:04-0500 Respiratory Rate 16 /min Asaf Hoang [facility] Encounters Encounter Date Encounter Type Care Provider Facility Start: 10-02-2023 ambulatory Asaf HOANG [facility] Start: 09-26-2023 End: 09-26-2023 ambulatory Nina HOANG Facility:[facility] Start: 09-26-2023 End: 09-26-2023 Office outpatient visit 10 minutes Asaf Hoang MD Work Phone: [facility] Procedures Date Procedure Procedure Detail Performing Clinician Start: 09-26-2023 End: 09-26-2023 Arthrocentesis aspir&/inj major jt/bursa w/o us Asaf Hoang MD Work Phone: Start: 10-18-2022 Arthrocentesis aspir &/inj major jt/bursa w/o us Asaf Hoang MD Work Phone: Start: 12-15-2021 Computerized ophthal danette imaging retina Primo Tineo MD Work Phone: Start: 10-12-2021 Arthrocentesis aspir &/inj major jt/bursa w/o us Asaf Hoang MD Work Phone: Start: 08-18-2021 Arthrocentesis aspir &/inj major jt/bursa w/o us Asaf Hoang MD Work Phone: Start: 10-04-2019 End: 10-04-2019 Arthrocentesis Aasf Hoang Work Phone: Plan of Treatment Date Care Activity Detail Author Start: 12-17-2029 Tetanus vaccination Tetanus: Every 10yrs [facility] Start: 02-06-2028 Tetanus vaccination [facility] Start: 05-04-2023 Influenza vaccination Sequential Influenza Vaccine (#1) [facility] Start: 06-21-2022 End: 06-21-2022 Patient encounter procedure 06/21/2022 Office Visit Orthopedic Surgery Asaf Hoang MD [facility] [place] [address] [facility] Start: 05-04-2022 Influenza vaccination Sequential Influenza Vaccine (#1) [facility] Start: 04-19-2022 End: 04-19-2022 Patient encounter procedure 04/19/2022 Office Visit Orthopedic Surgery Asaf Hoang MD [facility] [place] [address] [facility] Start: 01-25-2022 End: 01-25-2022 Patient encounter procedure 01/25/2022 Office Visit Orthopedic Surgery Asaf Hoang MD [address] [place] [address] [facility] Start: 11-30-2021 End: 11-30-2021 Patient encounter procedure 11/30/2021 Office Visit Orthopedic Surgery Asaf Hoang MD [address] [place] [address] [facility] Start: 11-08-2021 End: 11-08-2021 Admission to same day surgery center 11/08/2021 Surgery Asaf Hoang MD [address] [place] [address] LEFT SHOULDER ARTHROSCOPY WITH ROTATOR CUFF REPAIR [facility] Payers Date Payer Category Payer Private Health Insurance AETNA A ETNA CHOICE POS/POSII/PREMIER CARE/PREMIER CARE PLUS xxxxxxxxxx 2019-Present xxxxxxxxxx [id number] 2019 Private Health Insurance [id number] 2019 Private Health Insurance AETNA A ETNA CHOICE POS/POSII/PREMIER CARE/PREMIER CARE PLUS [id number] 2019-Present [phone] [address] [place] [address] [id number] 2016 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 [id number] 2016-Present [id number] 2013 Unknown [id number] 1959 Unknown [id number] 1959 Unknown [id number] 1959 Unknown [id number] 1959 Unknown [id number] 1959 Unknown [id number] 1959 Unknown [id number] 1959 Unknown [id number] 1959 Unknown [id number] 1959 Unknown [id number] 1959 Private Health Insurance [id number] Unknown AETNA\[employer] Unknown [id number] Social History Date Type Detail Facility Start: 10-04-2019 End: 01-25-2022 Tobacco smoking status NHIS Never smoker [facility] Start: 10-04-2019 End: 09-26-2023 Alcohol intake Current non-drinker of alcohol (finding) [facility] Start: 1960 Sex Assigned At Not on file [facility] Start: 10-04-2019 End: 01-25-2022 Tobacco use and exposure Never used [facility] Start: 09-17-2021 End: 10-18-2022 Exposure to SARS-CoV-2 (event) Not sure [facility] Start: 10-24-2021 End: 11-03-2021 Exposure to SARS-CoV-2 (event) Yes [facility] Start: 01-25-2022 End: 01-01-2023 Cigarette pack-years [facility] Tobacco smoking consumption unknown [facility] Start: 01-01-2023 Tobacco use panel [facility] Start: 01-01-2023 Gender identity Identifies as male gender (finding) [facility] Start: 01-01-2023 Sexual orientation Heterosexual (finding) [facility] Medical Equipment Procedure Code Equipment Code Equipment Origin al Text Equipment Identifier Dates Arnett 1.3mm Sut ure 3 Ribbons Pro Rc Y-Knot - [id number] Start: 11-08-2021 Clinical Notes 05-27-2018 to 09-26-2023 Asaf Hoang MD - 09/26/2023 8:55 PM Asaf Pinto MD - 09/26/2023 8:54 PM Asaf Pinto MD - 09/26/2023 8:53 PM ESTJ. Kunal Hoang MD - 10/18/2022 3:59 PM ESTPatient Instructions Note Date & Type Note Facility 09-26-2023 History of Present illness Narrative Associated Order(s): LG Jt Injection/Arthrocentesis: L knee Post-Procedure Diagnose(s): Arthritis of both knees LG Jt Injection/Arthrocentesis: L knee Performed by: Asaf Hoang MD Authorized by: Asaf Hoang MD CPT [id number] - Large Joint Arthrocentesis: Consent given by: Patient Supporting Documentation: Indications: Pain Procedure Details: Location: Knee Site: L knee Needle size: 20 G Approach: Lateral Medications: 40 mg triamcinolone acetonide 40 mg/mL Anesthetic used: Lidocaine 1% Anesthetic amount (mL): 1 Patient tolerance: Patient tolerated the procedure well with no immediate complications Associated Order(s): LG Jt Injection/Arthrocentesis: R knee Post-Procedure Diagnose(s): Arthritis of both knees LG Jt Injection/Arthrocentesis: R knee Performed by: Asaf Hoang MD Authorized by: Asaf Hoang MD CPT [id number] - Large Joint Arthrocentesis: Consent given by: Patient Supporting Documentation: Indications: Pain Procedure Details: Location: Knee Site: R knee Needle size: 20 G Approach: Lateral Medications: 40 mg triamcinolone acetonide 40 mg/mL Anesthetic used: Lidocaine 1% Anesthetic amount (mL): 1 Patient tolerance: Patient tolerated the procedure well with no immediate complications Assessment/Plan: 1. Arthritis of both knees Exacerbation of bilateral knee arthritis Injection both knees Return if symptoms worsen or fail to improve. Subjective: Aaron Bowers is a 62 y.o. male here for Other (Bilateral knee pain) Established patient here today with increased pain in both knees. Pain worse with activity. 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 Denies trauma or injury. Right knee more symptomatic than left. Having a lot of anterior knee pain right knee.. The following portions of the patient's history were reviewed and updated as appropriate: allergies, current medications, past surgical history and problem list. Review of Systems Constitutional: Negative for appetite change, fatigue and fever. Respiratory: Negative for chest tightness and shortness of breath. Cardiovascular: Negative for chest pain and palpitations. Gastrointestinal: Negative for abdominal pain and blood in stool. Genitourinary: Negative for difficulty urinating and dysuria. Musculoskeletal: Positive for arthralgias and gait problem. Negative for back pain and myalgias. Neurological: Negative for speech difficulty and headaches. Psychiatric/Behavioral: Negative for confusion and hallucinations. Objective: Ht 6' Wt 93 kg (205 lb) BMI 27.80 kg/m Physical Exam Constitutional: Appearance: He is well-developed. HENT: Head: Normocephalic. Pulmonary: Effort: Pulmonary effort is normal. Musculoskeletal: Cervical back: Normal range of motion. Skin: General: Skin is warm. Neurological: Mental Status: He is alert and oriented to person, place, and time. Range of motion full both knees. Crepitation with flexion extension right greater than left. No instability noted of either knee Imaging from this visit: No results found. X-rays demonstrate arthritis of both knees left greater than right. Significant joint space narrowing medially on the left knee. Moderate patellofemoral disease bilateral Asaf Hoang MD 09/26/2023 documented in this encounter [facility] 10-18-2022 History of Present illness Narrative Associated Order(s): LG Jt Injection/Arthrocentesis: L knee Post-Procedure Diagnose(s): Arthritis of both knees LG Jt Injection/Arthrocentesis: L knee Performed by: Asaf Hoang MD Authorized by: Asaf Hoang MD CPT [id number] - Large Joint Arthrocentesis: Consent given by: Patient Supporting Documentation: Indications: Pain Procedure Details: Location: Knee Site: L knee Needle size: 20 G Approach: Lateral Medications: 40 mg triamcinolone acetonide 40 mg/mL Anesthetic used: Bupivacaine 0.5% Anesthetic amount (mL): 1 Patient tolerance: Patient tolerated the procedure well with no immediate complications documented in this encounter [facility] 04-20-2022 History of Present illness Narrative Assessment/Plan: 1. Traumatic tear of left rotator cuff, unspecified tear extent, subsequent encounter Gradual progress left shoulder status post rotator cuff repair at 5 months Continue gradual strengthening program Return in about 4 weeks (around 05/17/2022) for Recheck. Subjective: Aaron Bowers is a 61 y.o. male here for Other of the Left Shoulder (LT SHOULDER SCOPE WITH RC REPAIR 11/08) Patient is 5 months status post rotator cuff repair left shoulder. Patient has progressed well. Still working to get all of his strength back. Pain relief has been excellent.. The following portions of the patient's history were reviewed and updated as appropriate: allergies, current medications, past surgical history and problem list. Review of Systems Objective: Wt 90.7 kg (200 lb) BMI 27.12 kg/m Physical Exam Near full active abduction present. Patient has pain with forward flexion above 90 degrees. Strength 4+/5. Imaging from this visit: No results found. Asaf Hoang MD 04/20/2022 documented in this encounter [facility] 04-20-2022 History of Present illness Narrative Completed and faxed RTW eval. With continued restricition through 06/21/22 documented in this encounter [facility] 04-13-2022 History of Present illness Narrative Faxed updated work restrictions to the [facility] fax [phone] documented in this encounter [facility] 03-29-2022 History of Present illness Narrative Assessment/Plan: 1. Traumatic tear of left rotator cuff, unspecified tear extent, initial encounter Stable status post rotator cuff repair left shoulder Physical therapy per protocol Return in about 4 weeks (around 01/27/2022) for Recheck. Subjective: Aaron Bowers is a 61 y.o. male here for Post-op of the Left Shoulder (Scope 11/08/21) Patient is more than 6 weeks status post rotator cuff repair left shoulder. Recovering about as expected. He had a larger tear so recovery has been a bit slower than normal. The following portions of the patient's history were reviewed and updated as appropriate: allergies, current medications, past surgical history and problem list. Review of Systems Objective: Resp 18 Ht 6' Wt 90.7 kg (200 lb) BMI 27.12 kg/m Physical Exam Portals well-healed. Elevation to about 75 to 80 degrees. Passive motion nearly full Imaging from this visit: No results found. Asaf Hoang MD 03/29/2022 documented in this encounter [facility] 02-22-2022 History of Present illness Narrative Assessment/Plan: 1. Traumatic tear of left rotator cuff, unspecified tear extent, initial encounter Stable status post rotator cuff repair left Patient's PT has been restricted by a spider bite. Return in about 4 weeks (around 03/22/2022) for Recheck. Subjective: Aaron Bowers is a 61 y.o. male here for Follow-up of the Left Shoulder (Sx 11/08/21 doing well) 3 months plus from rotator cuff repair left large cuff tear. Progressing well. Therapy has been interrupted by his treatment for a spider bite that he sustained. The following portions of the patient's history were reviewed and updated as appropriate: allergies, current medications, past surgical history and problem list. Review of Systems Objective: Ht 6' Wt 90.7 kg (200 lb) BMI 27.12 kg/m Physical Exam Left shoulder shows near full active elevation. Abduction strength 4+/5 Imaging from this visit: No results found. Asaf Hoang MD 02/22/2022 documented in this encounter [facility] 01-27-2022 History of Present illness Narrative Assessment/Plan: 1. Traumatic tear of left rotator cuff, unspecified tear extent, initial encounter Improving left shoulder status post rotator cuff repair at 2 and half months Continue PT per protocol Return in about 4 weeks (around 02/22/2022) for Recheck. Subjective: Aaron Bowers is a 61 y.o. male here for Follow-up of the Left Shoulder (LT LUL SCOPE WITH RC REPAIR 11/08) 2 months plus status post rotator cuff repair. Pain improving. Strength and range of motion gradually improving.. The following portions of the patient's history were reviewed and updated as appropriate: allergies, current medications, past surgical history and problem list. Review of Systems Objective: Resp 18 Ht 6' Wt 90.7 kg (200 lb) BMI 27.12 kg/m Physical Exam Active elevation to about 115 degrees. Abduction strength 4+/5 Imaging from this visit: No results found. Asaf Hoang MD 01/27/2022 documented in this encounter [facility] 05-02-2022 History of Present illness Narrative PT referral with light weight training added faxed to [phone] per pt request documented in this encounter [facility] 12-15-2021 Note HNO ID: [id number] Author: Primo Tineo MD Service: ? Author Type: Physician Type: Progress Notes Filed: 12/15/2021 9:42 AM Note Text: Assessment and Plan 1. Epiretinal membrane (ERM) of right eye -stable with preserved foveal contour 2. Optic cupping of both eyes 3. 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 Pseudophakia of both eyes -stable Plan: -doing well overall -continue follow-up Dr. Salas. Me as needed I have confirmed and edited as necessary the relevant ophthalmic history, ROS, and the neuro exam findings as obtained by others. I have seen and examined Aaron Bowers. I have discussed the case and the management of this patient's care with the Resident/Fellow, if applicable. I also have reviewed and agree with the assessment and plan as stated above and agree with all of its relevant components. Primo Tineo MD December 15, 2021 9:30 AM [facility] 12-15-2021 History of Present illness Narrative Assessment and Plan 1. Epiretinal membrane (ERM) of right eye -stable with preserved foveal contour 2. Optic cupping of both eyes 3. 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 Pseudophakia of both eyes -stable Plan: -doing well overall -continue follow-up Dr. Salas. Me as needed I have confirmed and edited as necessary the relevant ophthalmic history, ROS, and the neuro exam findings as obtained by others. I have seen and examined Aaron Bowers. I have discussed the case and the management of this patient's care with the Resident/Fellow, if applicable. I also have reviewed and agree with the assessment and plan as stated above and agree with all of its relevant components. Primo Tineo MD December 15, 2021 9:30 AM documented in this encounter [facility] 12-15-2021 Instructions Primo Tineo MD - 12/15/2021 9:30 AM EDT Images from the original note were not included. P documented in this encounter [facility] 12-05-2021 History of Present illness Narrative Faxed PT order to [facility] PT fax [phone] documented in this encounter [facility] 12-01-2021 History of Present illness Narrative Assessment/Plan: 1. Traumatic tear of left rotator cuff, unspecified tear extent, initial encounter Stable status post rotator cuff repair left shoulder Begin formal PT next week. Instructed on a home exercise program Return in about 4 weeks (around 12/28/2021) for Recheck. Subjective: Aaron Bowers is a 61 y.o. male here for Suture / Staple Removal of the Left Shoulder (LT SHOULDER RC REPAIR 11/08) Patient is approximately 3 weeks status post rotator cuff repair left shoulder. The tear was a relatively large tear but was repairable and we felt good about the quality of our repair.. The following portions of the patient's history were reviewed and updated as appropriate: allergies, current medications, past surgical history and problem list. Review of Systems Objective: Ht 6' Wt 90.7 kg (200 lb) BMI 27.12 kg/m Physical Exam Portals well-healed. Neurologically intact Imaging from this visit: No results found. Asaf Hoang MD 12/01/2021 documented in this encounter [facility] 11-04-2021 History of Present illness Narrative refaxed corrected FMLA with date of 10/17/21 as first day off to fax [phone] documented in this encounter [facility] 11-02-2021 History of Present illness Narrative Completed FMLA form and emailed to patient documented in this encounter [facility] 10-17-2021 History of Present illness Narrative Referral faxed to [facility] for MRI documented in this encounter [facility] 10-12-2021 History of Present illness Narrative Associated Order(s): LG Jt Injection/Arthrocentesis: L knee Post-Procedure Diagnose(s): Arthritis of both knees LG Jt Injection/Arthrocentesis: L knee Performed by: Asaf Hoang MD Authorized by: Asaf Hoang MD CPT 62637 - Large Joint Arthrocentesis: Consent given by: Patient Supporting Documentation: Indications: Pain Procedure Details: Location: Knee Site: L knee Needle size: 20 G Approach: Lateral Medications: 80 mg triamcinolone acetonide 40 mg/mL Anesthetic used: Lidocaine 1% Anesthetic amount (mL): 1 Patient tolerance: Patient tolerated the procedure well with no immediate complications Assessment/Plan: 1. Arthritis of both knees Exacerbation arthritic symptoms left knee Injection left knee Return if symptoms worsen or fail to improve. Subjective: Aaron Bowers is a 61 y.o. 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 Injection in his knee has worn off. Here today requesting a repeat injection to help him get through the season. The following portions of the patient's history were reviewed and updated as appropriate: allergies, current medications, past surgical history and problem list. Review of Systems Objective: There were no vitals taken for this visit. Physical Exam Mild effusion. Range of motion full. Imaging from this visit: No results found. Asaf Hoang MD 10/12/2021 documented in this encounter [facility] 08-18-2021 History of Present illness Narrative Associated Order(s): LG Jt Injection/Arthrocentesis: L knee Post-Procedure Diagnose(s): Arthritis of both knees LG Jt Injection/Arthrocentesis: L knee Performed by: Asaf Hoang MD Authorized by: Asaf Hoang MD CPT [id number] - Large Joint Arthrocentesis: Consent given by: Patient Supporting Documentation: Indications: Pain Procedure Details: Location: Knee Site: L knee Needle size: 20 G Approach: Lateral Medications: 80 mg methylPREDNISolone acetate 40 mg/mL Anesthetic used: Lidocaine 1% Anesthetic amount (mL): 1 Patient tolerance: Patient tolerated the procedure well with no immediate complications Assessment/Plan: 1. Arthritis of both knees Symptomatic medial compartment arthritis of the left knee Discussed options and elected to inject the left knee to help Derick get through the basketball season Return if symptoms worsen or fail to improve. Subjective: Aaron Bowers is a 60 y.o. male here for Procedure of the Left Knee (LEFT KNEE INJECTION. LAST ONE 10/02/19) Ongoing left knee pain. 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 He has had increasing difficulty with his left knee. Has not reinjured the knee. Is having pain primarily in the medial aspect of his knee.. The following portions of the patient's history were reviewed and updated as appropriate: allergies, current medications, past surgical history and problem list. Review of Systems Constitutional: Negative for appetite change, fatigue and fever. Respiratory: Negative for chest tightness and shortness of breath. Cardiovascular: Negative for chest pain and palpitations. Gastrointestinal: Negative for abdominal pain and blood in stool. Genitourinary: Negative for difficulty urinating and dysuria. Musculoskeletal: Positive for arthralgias and joint swelling. Negative for back pain, gait problem and myalgias. Neurological: Negative for speech difficulty and headaches. Psychiatric/Behavioral: Negative for confusion and hallucinations. Objective: Resp 18 Ht 6' Wt 83.9 kg (185 lb) BMI 25.09 kg/m Physical Exam Constitutional: Appearance: He is well-developed and well-nourished. HENT: Head: Normocephalic. Eyes: Extraocular Movements: EOM normal. Pulmonary: Effort: Pulmonary effort is normal. Musculoskeletal: Cervical back: Normal range of motion. Skin: General: Skin is warm. Neurological: Mental Status: He is alert and oriented to person, place, and time. Psychiatric: Mood and Affect: Mood and affect normal. Pain to palpation medial joint space left knee. Range of motion full. No instability. Equivocal José Antonio's. Imaging from this visit: No results found. X-rays obtained today show mild to moderate medial joint space narrowing on the left. There is mild patellofemoral arthrosis of both knees. Asaf Hoang MD 08/18/2021 documented in this encounter [facility] documented as of this encounter (statuses as of 12/15/2021) [facility] Left knee pain, unspecified chronicity- Primary [facility] Diagnosis Arthritis of both knees- Primary [facility] Diagnosis Arthritis of both knees- [facility] Diagnosis Left shoulder pain, unspecified chronicity- Primary [facility] Diagnosis Left shoulder pain, unspecified chronicity- Primary [facility] Diagnosis Left shoulder pain, unspecified chronicity- Primary [facility] Diagnosis Traumatic tear of left rotator cuff- Primary Exposure to SARS-associated coronavirus- Primary Traumatic tear of left rotator cuff, unspecified tear extent, initial encounter [facility] Diagnosis Traumatic tear of left rotator cuff- Primary Exposure to SARS-associated coronavirus- Primary [facility] Diagnosis Traumatic tear of left rotator cuff, unspecified tear extent, initial encounter- Primary [facility] Diagnosis Traumatic tear of left rotator cuff, unspecified tear extent, initial encounter- Primary documented in this encounter [facility] note* Diagnosis Epiretinal membrane (ERM) of right eye- Primary Optic cupping of both eyes High myopia, bilateral Myopia Pseudophakia of both eyes Lens replaced by other means [facility] Diagnosis Traumatic tear of left rotator cuff, unspecified tear extent, initial encounter- Primary documented in this encounter [facility] note* Diagnosis Traumatic tear of left rotator cuff, unspecified tear extent, initial encounter- Primary documented in this encounter [facility] note* Diagnosis Traumatic tear of left rotator cuff, unspecified tear extent, subsequent encounter- Primary documented in this encounter [facility] note* Diagnosis Arthritis of both knees- Primary documented in this encounter [facility] note* Diagnosis Arthritis of both knees- Primary documented in this encounter [facility] Purpose Family History No Family History Records FoundNo Family History Records FoundNo Family History Records FoundNo Family History Records FoundNo Family History Records FoundNo Family History Records FoundNo Family History Records FoundNo Family History Records FoundNo Family History Records FoundNo Family History Records FoundNo Family History Records FoundNo Family History Records Found Advance Directives No Advanced Directives Records FoundDocuments on File Type Date Recorded Patient Electronic Device Monitor Expl anation Advance Directives and Living Will Documents on File Type Date Recorded Patient Electronic Device Monitor Expl anation Advance Directives and Living Will Documents on File Type Date Recorded Patient Electronic Device Monitor Expl anation Advance Directives and Livin g Will 11/08/2021 7:28 AM Documents on File Type Date Recorded Patient Electronic Device Monitor Expl anation Advance Directives and Livin g Will 11/08/2021 7:28 AM History of Present Illness * Asaf Hoang MD - 10/04/2019 9:00 AM EST Associated Order(s): LG Jt Injection/Arthrocentesis: L knee Post-Procedure Diagnose(s): Arthritis of both knees LG Jt Injection/Arthrocentesis: L knee Performed by: Asaf Hoang MD Authorized by: Asaf Hoang MD CPT [id number] - Large Joint Arthrocentesis: Consent given by: Patient Supporting Documentation: Indications: Pain Procedure Details: Location: Knee Site: L knee Needle size: 20 G Approach: Lateral Medications: 80 mg methylPREDNISolone acetate 40 mg/mL Anesthetic used: Lidocaine 1% Anesthetic amount (mL): 1 Patient tolerance: Patient tolerated the procedure well with no immediate complications * Asaf Hoang MD - 10/04/2019 8:59 AM EST Associated Order(s): LG Jt Injection/Arthrocentesis Post-Procedure Diagnose(s): Arthritis of both knees LG Jt Injection/Arthrocentesis Performed by: Asaf Hoang MD Authorized by: Asaf Hoang MD CPT [id number] - Large Joint Arthrocentesis: Consent given by: Patient Supporting Documentation: Indications: Pain Procedure Details: Location: Knee Needle size: 20 G Approach: Lateral Medications: 80 mg methylPREDNISolone acetate 40 mg/mL Anesthetic used: Lidocaine 1% Anesthetic amount (mL): 1 Patient tolerance: Patient tolerated the procedure well with no immediate complications * Asaf Hoang MD - 10/04/2019 8:57 AM EST Assessment/Plan: 1. Right knee pain, unspecified chronicity celecoxib (CELEBREX) 200 MG capsule CANCELED: XR Knee Right 4+VWS (Note in Comments) 2. Arthritis of both knees Symptomatic knee arthritis bilateral moderate Injection both knees Return if symptoms worsen or fail to improve. Subjective: Aaron Bowers is a 59 y.o. male here for Procedure of the Left Knee (Pt is wanting left knee injection, possibly both knees. ) Established patient pain both knees left greater than right. 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 Started to have activity related pain again in both knees. No specific injury.. No Known Allergies Outpatient Medications as of 10/02/2019 Medication Sig [DISCONTINUED] celecoxib (CELEBREX) 200 MG capsule Take 200 mg by mouth 2 (two) times a day History reviewed. No pertinent past medical history. Past Surgical History: Procedure Laterality Date KNEE SURGERY left scope Social History Socioeconomic History Marital status: Spouse name: Not on file Number of children: Not on file Years of education: Not on file Highest education level: Not on file Occupational History Not on file Social Needs Financial resource strain: Not on file Food insecurity Worry: Not on file Inability: Not on file Transportation needs Medical: Not on file Non-medical: Not on file Tobacco Use Smoking status: Never Smoker Smokeless tobacco: Never Used Substance and Sexual Activity Alcohol use: No Drug use: Not on file Sexual activity: Not on file Lifestyle Physical activity Days per week: Not on file Minutes per session: Not on file Stress: Not on file Relationships Social connections Talks on phone: Not on file Gets together: Not on file Attends moravian service: Not on file Active member of club or organization: Not on file Attends meetings of clubs or organizations: Not on file Relationship status: Not on file Other Topics Concern Not on file Social History Narrative Not on file Review of Systems Constitutional: Negative for appetite change, fatigue and fever. Respiratory: Negative for chest tightness and shortness of breath. Cardiovascular: Negative for chest pain and palpitations. Gastrointestinal: Negative for abdominal pain and blood in stool. Genitourinary: Negative for difficulty urinating and dysuria. Musculoskeletal: Positive for arthralgias. Negative for back pain, gait problem and myalgias. Neurological: Negative for speech difficulty and headaches. Psychiatric/Behavioral: Negative for confusion and hallucinations. Objective: Resp 16 Ht 6' Wt 83.9 kg (185 lb) BMI 25.09 kg/m Physical Exam Constitutional: He is oriented to person, place, and time. He appears well- developed and well-nourished. HENT: Head: Normocephalic. Eyes: EOM are normal. Neck: Normal range of motion. Pulmonary/Chest: Effort normal. Neurological: He is alert and oriented to person, place, and time. Skin: Skin is warm. Psychiatric: He has a normal mood and affect. Range of motion is full bilaterally. Mild tenderness bilaterally. Pain in the medial aspect of bothknees. Imaging from this visit: Xr Knees Bilateral 4+ Views (specify Views In Comments) Result Date: 10/02/2019 EXAMINATION: XR KNEES BILATERAL 4+ VIEWS (SPECIFY VIEWS IN COMMENTS) 10/02/2019 1:12 PM HISTORY: ORDERING SYSTEM PROVIDED HISTORY: PAIN, TECHNOLOGIST PROVIDED HISTORY: Illness/Other Reason for exam: pain Cancer History: u Surgery, RadiationHistory: u Encounter Type: Initial Additional signs and symptoms: na ORDERING SYSTEM PROVIDED DIAGNOSIS CODES: M25.562 Left knee pain, unspecified chronicity COMPARISON: Correlation made to prior left knee film, 09/07/2015. FINDINGS: Four views of each knee obtained on a total of 5 films. The right knee upright images demonstrate minimal relative narrowing of medial compartment with slight remodeling of articular surfaces. No areas of bony sclerosis or marginal osteophyte formation seen. No joint effusion. Patella well positioned and generally intact. There is, however, calcific tendinopathy of the infrapatellar tendon. At the origin at the lower patella, there is a 7 x 6 mm smoothly marginated calcification overlying tendon. Additionally, there is a mo re distal smoothly marginated calcification near patellar ligament insertion on proximal tibial tuberosity which measures 7 x 6 mm. On the left side, no joint effusion seen. Patella well positioned. There is a smoothly marginated calcification overlying infrapatellar ligament near tibial insertion site. This measures 11 x 6 mm. Patellofemoral joint space normal. Frontal view demonstrates slight medial compartment narrowing with mild remodeling of articular surfaces. No sclerosis or marginal osteophyte formation. 1. No acute osseous findings of either knee; however, there are chronic findings which may be related to symptoms. 2. RIGHT KNEE: Slight medial compartment degeneration. Calcifications of infrapatellar ligament consistent with old [place]-Schlatter and Uhbknqu-Cbchsx-Dgrbvclpf. 3. LEFT KNEE: Mild medial compartment degeneration. Infrapatellar ligament calcification consistent with old [place]-Schlatter. ARR/trw Workstation ID: [id number] Asaf Hoang MD 10/04/2019 documented in this encounter Assessments Diagnosis Right knee pain, unspecified chronicity Arthritis of both knees Reason for Referral Specialty Diagnoses / Procedures Referred By Cristiane green Referred To Contact Radiology Diagnoses Left shoulder pain, unspecified chronicity Procedures MR Shoulder Left Without Contrast Asaf Hoang MD [address] [place] [address] Referral ID Status Reason Start Date Expiration Date V isits Requested Visits Authorized [id number] Pending Review 10/17/2021 10/17/2022 1 1 Referral ID Status Reason Start Date Expiration Date Visits Re quested Visits Authorized [id number] Closed 10/17/2021 10/17/2022 1 1 Specialty Diagnoses / Procedures Referred By Contac t Referred To Contact Radiology Diagnoses Left shoulder pain, unspecified chronicity Procedures MR Shoulder Left Without Contrast Asaf Hoang MD [address] [place] [id number] [facility] [address] [place] [place] [address] Phone: [phone] Referral ID Status Reason Start Date Expiration Date V isits Requested Visits Authorized [id number] Authorized 10/17/2021 10/17/2022 1 1 Specialty Diagnoses / Procedures Referred By Contac t Referred To Contact Physical Therapy Diagnoses Traumatic tear of left rotator cuff, unspecified tear extent, initial encounter Asaf Hoang MD [address] [place] [id number] Referral ID Status Reason Start Date Expiration Date Visits Requested Visits Authorized [id number] Authorized Patient Preference 12/01/2021 12/01/2022 1 1 Specialty Diagnoses / Procedures Referred By Contac t Referred To Contact Physical Therapy Diagnoses Traumatic tear of left rotator cuff, unspecified tear extent, initial encounter Asaf Hoang MD [address] [place] [id number] [address] Phone: [phone] Referral ID Status Reason Start Date Expiration Date Visits Requested Visits Authorized [id number] Authorized Patient Preference 01/02/2022 01/02/2023 1 1 Specialty Diagnoses / Procedures Referred By Contac t Referred To Contact Physical Therapy Diagnoses Traumatic tear of left rotator cuff, unspecified tear extent, initial encounter Asaf Hoang MD [address] [place] [id number] [facility] [address] [place] [id number] Referral ID Status Reason Start Date Expiration Date Visits Requested Visits Authorized [id number] Authorized Patient Preference 02/28/2022 02/28/2023 1 1 Medications Administered Section Active Administered Medications - up to 3 most recent administrations Medication Order MAR Action Action Date Dose Rate Site fluorescein-benoxinate 0.25-0.4 % 1 Drop (FLURESS) 1 Drop, BOTH EYES, DIRECTED, Starting on Fatimah 12/15/21 at 0900, Until Sun12/15/21 at 2058, Administer for applanation tonometry. In the event of a Fluress shortage, administer Pearl-Fluor 1 drop into both eyes as directed for applanation tonometry Given 12/15/2021 9:00 AM EDT 1 Drop PHENYLephrine 2.5 % 1 Drop (AK-DILATE, ELTON-SYNEPHRINE) 1 Drop, BOTH EYES, DIRECTED, Starting on Fatimah 12/15/21 at 0900, Until Fatimah 12/15/21 at 2058, Administer for dilation PROTECT FROM LIGHT Given 12/15/2021 9:00 AM EDT 1 Drop proparacaine 0.5 % 1 Drop (ALCAINE) 1 Drop, BOTH EYES, DIRECTED, Starting on Fatimah 12/15/21 at 0900, Until Sun12/15/21 at 2058, Administer for pneumo tonometry, tonopen tonometry, or pachymetry. In the event of a proparacaine shortage, administer tetracaine 0.5% ophthalmic drops 1 drop in the left eye as directed for pneumo tonometry, tonopen tonometry, or pachymetry Given 12/15/2021 9:00 AM EDT 1 Drop tropicamide 1 % 1 Drop (MYDRIACYL) 1 Drop, BOTH EYES, DIRECTED, Starting on [facility] 12/15/21 at 0900, Until Faitmah 12/15/21 at 2058, Administer for dilation Given 12/15/2021 9:00 AM EDT 1 Drop Additional Source Comments (unrecognized sect ion and content) No Status Records FoundNo Status Records FoundNo Status Records FoundNo Status Records FoundNo Status Records FoundNo Status Records FoundNo Status Records FoundNo Status Records FoundNo Status Records FoundNo Status Records FoundNo Status Records FoundNo Status Records Found INFORMATION SOURCE (unrecogn ized section and content) DATE CREATED AUTHOR AUTHOR'S ORGANIZ ATION 02/27/2018 [facility] DATE CREATED AUTHOR AUTHOR'S ORGANIZ ATION 04/19/2019 [facility] DATE CREATED AUTHOR AUTHOR'S ORGANIZ ATION 12/19/2019 [facility] DATE CREATED AUTHOR AUTHOR'S ORGANIZ ATION 10/31/2021 [facility] DATE CREATED AUTHOR AUTHOR'S ORGANIZ ATION 11/25/2021 [facility] DATE CREATED AUTHOR AUTHOR'S ORGANIZ ATION 12/16/2021 [facility] DATE CREATED AUTHOR AUTHOR'S ORGANIZ ATION 02/09/2022 [facility] DATE CREATED AUTHOR AUTHOR'S ORGANIZ ATION 02/28/2022 [facility] DATE CREATED AUTHOR AUTHOR'S ORGANIZ ATION 07/30/2023 [facility] DATE CREATED AUTHOR AUTHOR'S ORGANIZ ATION 09/27/2023 [facility] DATE CREATED AUTHOR AUTHOR'S ORGANIZ ATION 10/04/2023 [facility] Reason for Visit (unrecogniz ed section and content) Reason Comments Procedure LEFT KNEE INJECTION. LAST ONE 10/02/19 Reason Comments Procedure injection Reason Comments Suture / Staple Removal LT SHOULDER RC R EPAIR 11/08 Reason Comments Lamellar Macular Hole Right eye Reason Comments Follow-up LT LUL SCOPE WITH RC REPAIR 11/08 Reason Comments Follow-up Sx 11/08/21 doing well Reason Comments Post-op Scope 11/08/21 Reason Comments Other LT SHOULDER SCOPE WI TH RC REPAIR 11/08 Reason Comments Procedure Left knee injection Reason Comments Other Bilateral knee pain Care Teams (unrecognized sec tion and content) Command And Control Relationship Specialty Start Date End Date Miah Patino MD [address] [facility] [address] [place] [address] PCP - General Family Medicine 09/07/15 Command And Control Relationship Specialty Start Date End Date Miah Patino MD [address] [facility] [address] [place], [place] [id number] PCP - General Family Medicine 09/07/15 Command And Control Relationship Specialty Start Date End Date Miah Patino MD [address] [facility] [address] [place], [place] [id number] PCP - General Family Medicine 09/07/15 Command And Control Relationship Specialty Start Date End Date Miah Patino MD [address] [facility] [address] [place], [place] [id number] PCP - General Family Medicine 09/07/15 Command And Control Relationship Specialty Start Date End Date Miah Patino MD [address] [facility] [address] [place], [place] [id number] PCP - General Family Medicine 09/07/15 Command And Control Relationship Specialty Start Date End Date No, Physician [facility] PCP - General 11/07/21 Command And Control Relationship Specialty Start Date End Date No, Physician [facility] PCP - General 11/07/21 Command And Control Relationship Specialty Start Date End Date No, Physician [facility] PCP - General 11/07/21 Command And Control Relationship Specialty Start Date End Date Miah Patino MD PCP - General Family Practice 05/06/14 Command And Control Relationship Specialty Start Date End Date Miah Trivedi MD [address] [facility] [address] [place] [address] PCP - General Endocrinology/Metabolism 12/30/21 Command And Control Relationship Specialty Start Date End Date Miah Trivedi MD [address] [facility] [address] [place] [address] PCP - General Endocrinology/Metabolism 12/30/21 Command And Control Relationship Specialty Start Date End Date Miah Trivedi MD [address] [facility] [address] [place] [address] PCP - General Endocrinology/Metabolism 12/30/21 Command And Control Relationship Specialty Start Date End Date Miah Trivedi MD [address] [facility] [address] [place] [address] PCP - General Endocrinology/Metabolism 12/30/21 Command And Control Relationship Specialty Start Date End Date Miah Trivedi MD [address] [place] [address] [address] [place], [place] [id number] PCP - General Endocrinology/Metabolism 12/30/21 Command And Control Relationship Specialty Start Date End Date Miah Trivedi MD [address] [place] [address] [address] [place], [place] [id number] PCP - General Endocrinology/Metabolism 12/30/21 Command And Control Relationship Specialty Start Date End Date Miah Trivedi MD [address] [place] [address] [address] [place] [address] PCP - General Endocrinology/Metabolism 12/30/21 Command And Control Relationship Specialty Start Date End Date Miah Trivedi MD [address] [place] [address] PCP - General Endocrinology/Metabolism 12/30/21 Source Comments (unrecognize d section and content) In the event this informatio n is protected by the Federal Confidentiality of Alcohol and Drug Abuse Patient Records regulations: The Federal rules restrict any use of the information to criminally investigate or prosecute any alcohol or drug abuse patient.[facility] <item><item> Privacy Markings (unrecogniz ed section and content) Section Author: [employer] PROHIBITION ON REDISCLOSURE OF CONFIDENTIAL INFORMATION This notice accompanies a disclosure of information concerning a client made to you with the consent of such client. Section Author: [employer] PROHIBITION ON REDISCLOSURE OF CONFIDENTIAL INFORMATION This notice accompanies a disclosure of information concerning a client made to you with the consent of such client. FOR RECORDS PERTAINING TO PATIENTS WHO ARE OR HAVE BEEN ENROLLED IN A CHEMICAL DEPENDENCY/SUBSTANCEABUSE PROGRAM, SOME INFORMATION MAY BE OMITTED. This clinical summary was aggregated from multiple sources. Caution should be exercised in using it in the provision of clinical care. This summary normalizes information from multiple sources, and as a consequence, information in this document may materially change the coding, format and clinical context of patient data. In addition, data may be omitted in some cases. CLINICAL DECISIONS SHOULD BE BASED ON THE PRIMARY CLINICAL RECORDS. [facility]. provides no warranty or guarantee of the accuracy or completeness of information in this document.
[2023-10-17 12:32] LABS: Absolute Lymphocyte Count 1.97 X10^3/uL (0.83-4.51); Absolute Neutrophil Count 5.9 X10^3/uL (2.0-7.7); Basophil# 0.04 X10^3/uL; Basophil% 0.4 % (0-1); Eosinophil# 0.22 X10^3/uL; Eosinophils% 2.4 % (0-5); Hematocrit 46.4 % (40-54); Hemoglobin 15.2 g/dL (13.0-16.5); Lymphocyte # 1.97 X10^3/ul (0.83-4.51); Lymphocyte % 21.7 % (19-41); Mean Corp Hgb Conc 32.8 g/dL (32-36); Mean Corpuscular Hgb 28.8 pg (27.0-32.0); Mean Corpuscular Volume 87.9 fL (80-94); Mean Platelet Vol. 10.4 fl (6.2-12.0); Monocyte# 0.87 X10^3/uL; Monocyte% 9.6 % (0-10); NRBC Flagged by Analyzer 0 % (0-5); Neutrophil # 5.94 X10^3/uL (2.7-7.7); Neutrophil % 65.6 % (47-70); Platelet Count 286 K/mm3 (150-450); RBC Distribution Width CV 12.9 % (11.6-14.6); RBC Distribution Width SD 41.7 fl (35.1-43.9); Red Blood Count 5.28 M/mm3 (4.6-6.2); White Blood Count 9.1 K/mm3 (4.4-11.0)
[2023-10-17 12:52] LABS: ALB/GLOB Ratio 1.2 RATIO (0.9-2.4); AST(SGOT) 23 U/L (15-37); Alanine Aminotransfer ALT/SGPT 30 U/L (16-61); Albumin, Serum 3.8 g/dL (3.2-5.0); Alkaline Phosphatase 56 U/L (45-117); Anion Gap 7 (5-15); BUN 23 mg/dL (7-18); BUN/Creat Ratio 22.5 RATIO (10-20); Chloride 105 mmol/L (98-107); Cholesterol 142 mg/dL (200); Creatinine, Serum 1.02 mg/dL (0.70-1.30); EST Glomerular Filtration Rate 78 mL/min (>60); Est Glom Filt Rate - Afr Amer 95 mL/min (>60); Globulin 3.1 g/dL (2.2-4.2); Glucose 97 mg/dL (74-106); High Density Lipoprotein 47 mg/dL; Potassium 4.1 mmol/L (3.5-5.1); Protein, Total 6.9 g/dL (6.4-8.2); Sodium Level 138 mmol/L (136-145); Triglycerides 34 mg/dL; Very Low Density Lipoprotein 7 mg/dL (5-40)
== END | disposition home or self-care (01) ==
LOC: MFPLAB 10:00
PROVIDERS: PCP Family Medicine; Visit Provider Family Medicine
DX: R07.9 Chest pain, unspecified (principal)
CPT/HCPCS: 36415; 80053; 80061; 85025

== ENCOUNTER 2023-10-18 12:31 | Inpatient (IN) | payer OTHER, SELFPAY ==
[2023-10-18] VITALS (9 sets, daily range): BP systolic 111–144; BP diastolic 61–88; PULSE 54–73; RESP 16–27; TEMP 36.3–37.2; O2SAT 93–98; BMI 27.5; BMI 26.9
--- NOTE | 2023-10-18 12:51 | EKG12_ITS ---
Test Reason : CP Blood Pressure : / mmHG Vent. Rate : 067 BPM Atrial Rate : 067 BPM P-R Int : 178 ms QRS Dur : 096 ms QT Int : 384 ms P-R-T Axes : 025 -06 041 degrees QTc Int : 405 ms Sinus rhythm with occasional Premature ventricular complexes RSR' or QR pattern in V1 suggests right ventricular conduction delay Borderline ECG Confirmed by Richard Hogan ([id number]), staff editor CHAPITO RUIZ ([id number]) on 10/19/2023 9:44:45 AM Referred By: ALYSON/VIJAYA Confirmed By:Richard Hogan
[2023-10-18 13:08] LABS: Absolute Lymphocyte Count 1.38 X10^3/uL (0.83-4.51); Absolute Neutrophil Count 7.1 X10^3/uL (2.0-7.7); Basophil# 0.06 X10^3/uL; Basophil% 0.6 % (0-1); Eosinophil# 0.25 X10^3/uL; Eosinophils% 2.6 % (0-5); Hematocrit 46.3 % (40-54); Hemoglobin 15.6 g/dL (13.0-16.5); Lymphocyte # 1.38 X10^3/ul (0.83-4.51); Lymphocyte % 14.4 % (19-41); Mean Corp Hgb Conc 33.7 g/dL (32-36); Mean Corpuscular Hgb 29.3 pg (27.0-32.0); Mean Platelet Vol. 9.8 fl (6.2-12.0); Monocyte# 0.76 X10^3/uL; Monocyte% 7.9 % (0-10); NRBC Flagged by Analyzer 0 % (0-5); Neutrophil # 7.11 X10^3/uL (2.7-7.7); Neutrophil % 74.2 % (47-70); Platelet Count 283 K/mm3 (150-450); RBC Distribution Width CV 12.9 % (11.6-14.6); RBC Distribution Width SD 40.3 fl (35.1-43.9); Red Blood Count 5.32 M/mm3 (4.6-6.2); White Blood Count 9.6 K/mm3 (4.4-11.0)
--- NOTE | 2023-10-18 13:17 | ED.VIS.CHEST ---
HPI History of Present Illness Chief Complaint: Chest Pain Detail of Chief Complaint: Chest tightness and fullness radiating to the left upper extremity with exe Informant: patient Onset/Context/Timing Onset: Days (Detailed HPI narrative) Activity at onset: sudden Timing: Intermittent Quality: Positive for Tightness and - (Fullness) Location: Substernal and Left Parasternal Current Severity: Gone Maximum Severity: Severe (On Sunday patient) Worsened By: Exertion; Not Worsened By Movement of Arm, Movement of Torso, Eating, Palpation, Breathing or Coughing Relieved By: Rest Associated Symptoms: Positive for Dyspnea; Negative for Nausea, Vomiting, Diaphoresis, Cough, Fever, Lightheadedness, Acid Reflux or Palpitations Narrative Narrative: Patient is a healthy active 63-year-old male who does not smoke. There is multiple family's maternal side of have cardiac disease. No one before the age of 55. He has no risk factors for cardiac disease. 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 This occurred mostly with COVID again. He states when the reason he got the discomfort and resolved once he stopped running. He left a game on Sunday had no symptoms. He left a game on Sunday and was having exertional chest discomfort with dyspnea. He had no other associated symptoms. He denies history of reflux. He denies intolerance to greasy or fried foods. He denies black or maroon-colored stool. Prior Similar Symptoms: No Recent Illness/Hospitalization: No CVD Risk Factors: Negative for Hypertension, Diabetes, Hypercholesterolemia, Family History 1' </=55 or Smoking PE Risk Factors: Negative for Recent Travel/Surgery, Recent Immobilization, Prior DVT or PE, Cancer or OCP + Smoking + >/=35 TAD Risk Factors: Negative for Marfan's Syndrome, Hypertension or Family History PFSH PFSH Medical History no medical history no medical history Home Medications NK 08/12/20 [History Last Taken Unknown] Allergy/AdvReac Type Severity Reaction Status Date / Time No Known Allergies Allergy Verified 10/18/23 12:32 Surgical History no surgical history no surgical history Social History (Updated 10/18/23 @ 13:[address] Mathew Gonzalez MD) household members: none Smoking Status: Never smoker ROS ROS ED Constitutional Constitutional ED: Denies chills, fever(s) or subjective Eyes Eyes: Reports none ENT ENT ED: Denies ear pain, rhinorrhea or sore throat Cardiovascular Cardiovascular: Reports as per HPI; Denies orthopnea or paroxysmal nocturnal dyspnea Respiratory/Chest Respiratory/Chest: Reports dyspnea on exertion; Denies cough, dyspnea, orthopnea, paroxysmal nocturnal dyspnea or sputum Gastrointestinal Gastrointestinal: Denies abdominal pain, melena, nausea or vomiting Musculoskeletal Musculoskeletal: Denies arthralgias, back pain, myalgias or neck pain Integumentary Denies rash Neurologic Neurologic: Denies paresthesias or weakness Hematologic/Lymphatic Hematologic/Lymphatic: Denies easy bleeding or easy bruising EXAM Physical Exam Const Vital Signs: 10/18/23 12:32 10/18/23 12:31 10/18/23 12:31 Temperature 97.3 F L 97.8 F Temperature Source Temporal Temporal Pulse Rate 70 73 Respiratory Rate 18 16 Respiratory Effort Normal Blood Pressure 144/61 H 129/75 H Blood Pressure Mean 88 93 Pulse Ox 97 96 Oxygen Delivery Method Room Air Room Air 10/18/23 14:08 10/18/23 14:23 Temperature 97.6 F L Temperature Source Pulse Rate 61 63 Respiratory Rate 27 H 22 H Respiratory Effort Blood Pressure 111/75 117/82 H Blood Pressure Mean 87 93 Pulse Ox 95 95 Oxygen Delivery Method Room Air Positive well nourished and well developed General Appearance ED: well developed and NAD; Negative for pallor HEENT Reports moist mucous membranes normocephalic and atraumatic Eyes PERRL and EOMs intact bilaterally General Eye ED: Negative for pale conjunctiva or scleral icterus Neck no lymphadenopathy, supple and no JVD Resp normal respiratory effort and clear to auscultation bilaterally Cardio regular rate, regular rhythm, S1 normal heart sound, S2 normal heart sound and no murmurs Peripheral Pulses: pulses 2+ throughout GI normal to inspection, nondistended, normoactive bowel sounds, soft to palpation, non-tender, non-distended and no masses; Negative for hepatosplenomegaly Back/Spine no CVA tenderness Extremity normal to inspection Neuro oriented x3, CN's II-XII intact bilaterally, no sensory deficits noted and gait normal Sensorium / Orientation: awake and alert Psych mental status grossly normal Skin no rashes or lesions noted and no wounds General Skin Exam: Negative for jaundice or pallor MDM MDM MDM Narrative Medical decision making narrative: Patient presents with exertional chest tightness. Concerned this represents cardiac. Doubt noncardiac but also need to consider peptic ulcer disease GERD pulmonary disease. EKG appropriate blood work was ordered. Case was discussed with Dr. Gilmar Patino. He recommends cardiac catheterization. If troponin is negative plan is to call Dr. 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 Gutierrez for cardiac catheterization Lab Data Labs: Laboratory Results - last 24 hr 10/18/23 12:53 WBC 9.6 RBC 5.32 Hgb 15.6 Hct 46.3 MCV 87.0 MCH 29.3 MCHC 33.7 RDW Std Deviation 40.3 RDW Coeff of Edwardo 12.9 Plt Count 283 MPV 9.8 Immature Gran % (Auto) 0.300 Neut % (Auto) 74.2 H Lymph % (Auto) 14.4 L Ramsey % (Auto) 7.9 Eos % (Auto) 2.6 Baso % (Auto) 0.6 Absolute Neuts (auto) 7.1 Absolute Lymphs (auto) 1.38 Nucleated RBC % 0 Sodium 144 Potassium 3.9 Chloride 113 H Carbon Dioxide 27.0 Anion Gap 4 L BUN 19 H Creatinine 0.98 Estim Creat Clear Calc 83.58 Est GFR (MDRD) Af Amer 99 Est GFR (MDRD) Non-Af 82 BUN/Creatinine Ratio 19.3 Glucose 120 H Calcium 8.8 Troponin I High Sens 136 H* Management Discussion w/another healthcare provider: Hospitalist (Hospitalist paged for admission.) and Wood Model Maker (Case was discussed with cardiology. Since patient had a non-STEMI cardiology has been paged regarding antithrombotic care and anticoagulant.) Treatment and Re-Evaluation :: After discussion Dr. Manuel patient was loaded with Brilinta and started on heparin. He will contact Dr. Dr. Gutierrez Critical Care Time Critical Care Time: Yes Critical care time (excluding procedures): 30-74 minutes (31), Including time spent: (History, physical, documentation, and treatment with patient of laboratory results, EKG and chest x-ray), Discussing w/Patient &/or Family/Protein Scientist, Discussing w/Consultants and Arranging Admission or Transfer Discharge Plan Dx/Rx/DC Orders Clinical Impression: Non-ST elevated myocardial infarction Disposition Disposition: Acute Care Hospital [facility]
[2023-10-18 13:59] LABS: Anion Gap 4 (5-15); BUN 19 mg/dL (7-18); BUN/Creat Ratio 19.3 RATIO (10-20); Calcium,Total 8.8 mg/dL (8.5-10.1); Chloride 113 mmol/L (98-107); Creatinine, Serum 0.98 mg/dL (0.70-1.30); EST Glomerular Filtration Rate 82 mL/min (>60); Est Glom Filt Rate - Afr Amer 99 mL/min (>60); Estimated Creatinine Clearance 83.58 ml/min; Glucose 120 mg/dL (74-106); Potassium 3.9 mmol/L (3.5-5.1); Sodium Level 144 mmol/L (136-145); Troponin-I HS 136 pg/mL (3.0-78.0)
[2023-10-18] MEDS: Aspirin 81 MG TAB.CHEW 324 MG PO (14:18)
--- NOTE | 2023-10-18 14:30 | ED.RN ---
NO OLD EKG
--- NOTE | 2023-10-18 14:31 | PCM.HP.STD ---
HPI - General General Date of Admission: 10/18/23 Date of Service: 10/18/23 Chief Complaint: Chest Pain HPI Narrative AFSANEH NOVAK, is a 63 M who presented to the emergency department at [facility] on 10/18/2023 due to chest pain. 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 He noted that his symptoms resolved when he stopped running. 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 On Sunday he left the game as he was having exertional chest pain and dyspnea with no other associated symptoms such as diaphoresis or nausea vomiting. He does have a strong family history of cardiac disease on his maternal side but none before age 55. He has no specific cardiac risk factors and he takes no chronic medications at home. He does not smoke. 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 On presentation his temperature was 97.3, heart rate was 70, initial blood pressure was 144/61 with repeat at 117/82, respiratory rate has been anywhere between 18 and 27 and oxygen saturations are 97% on room air. His CBC is unremarkable other than mild left shift with a 74.2% neutrophilia. His chemistry panel was essentially unremarkable other than hyperglycemia with a blood sugar of 120. He does not have a known history of diabetes and this is nonfasting. His initial troponin was 136. EKG showed normal sinus rhythm with normal intervals and no ST-T wave changes concerning for acute ischemia. He did have a PVC. Case was discussed with cardiology given troponin elevation and he was started on heparin drip and loaded with Brilinta. He also received a full dose aspirin emergency department. Plan is for cardiac catheterization tomorrow. [facility] Medical History no medical history no medical history Home Medications NK 08/12/20 [History Last Taken Unknown] Allergy/AdvReac Type Severity Reaction Status Date / Time No Known Allergies Allergy Verified 10/18/23 12:32 Family History (Updated 10/18/23 @ 15:[address] Nora Rivera DO) Other CAD (coronary artery disease) Heart disease Hypertension Surgical History (Updated 10/18/23 @ 15:[address] Nora Rivera DO) History of arthroscopy of left knee History of arthroscopy of left shoulder Surgical History no surgical history Social History (Updated 10/18/23 @ 15:[address] Nora Rivera DO) household members: spouse and none housing: house Smoking Status: Never smoker alcohol intake: current alcohol intake frequency: a few times a month substance use type: does not use what type of physical activity do you participate in: running ROS Constitutional Constitutional: Denies anorexia, change in weight, chills, fatigue, fever(s), malaise, night sweats, weakness or other Eyes Eyes: Denies blurry vision, change in eye color, change in vision, discharge from eye(s), double vision, erythema, eye pain, loss of vision or other ENT HEENT: Denies abnormal hearing, dysphagia, ear pain, epistaxis, headache(s), hearing loss, nasal congestion, nasal discharge, post nasal drip, sinus pressure, sore throat or other Cardiovascular Cardiovascular: Denies chest pain, claudication, dyspnea on exertion, edema, lightheadedness, orthopnea, palpitations, paroxysmal nocturnal dyspnea, rapid heart rate, syncope or other Respiratory/Chest Respiratory/Chest: Denies cough, dyspnea, excessive phlegm production, hemoptysis, productive cough, shortness of breath at rest, shortness of breath with exertion, wheezing or other Gastrointestinal Gastrointestinal: Denies abdominal pain, coffee ground emesis, constipation, diarrhea, dyspepsia, hematemesis, hematochezia, loose stools, melena, nausea, vomiting or other Genitourinary Genitourinary: Denies burning urination, difficulty urinating, dysuria, hematuria, nocturia, urinary frequency, urinary hesitancy, urinary incontinence, urinary urgency or other Musculoskeletal Musculoskeletal: Denies arthralgias, back pain, joint pain, joint stiffness, joint swelling, myalgias, neck pain or other Neurologic Neurologic: Denies abnormal gait, abnormal speech, confusion, disequilibrium, dizziness, focal weakness, headache(s), numbness, paresthesias, seizure-like activity, seizures, syncope, tingling, tremor(s) or other Psychiatric Psychiatric: Denies anxiety, depression, homicidal ideation, suicidal ideation or other Endocrine Endocrinology: Denies change in body appearance, cold intolerance, excessive sweating, heat intolerance, polydipsia, polyuria or other Hematologic/Lymphatic Hematologic/Lymphatic: Denies anemia, easy bleeding, easy bruising, lymphadenopathy or other Allergic/Immunologic Allergic/Immunologic: Denies rhinitis, hives, eczemia, asthma or other Vital Signs Vital Signs Vital Signs: 10/18/23 12:32 10/18/23 12:31 10/18/23 12:31 Temperature 97.3 F L 97.8 F Temperature Source Temporal Temporal Pulse Rate 70 73 Respiratory Rate 18 16 Respiratory Effort Normal Blood Pressure 144/61 H 129/75 H Blood Pressure Mean 88 93 Pulse Ox 97 96 Oxygen Delivery Method Room Air Room Air 10/18/23 14:08 10/18/23 14:23 Temperature 97.6 F L Temperature Source Pulse Rate 61 63 Respiratory Rate 27 H 22 H Respiratory Effort Blood Pressure 111/75 117/82 H Blood Pressure Mean 87 93 Pulse Ox 95 95 Oxygen Delivery Method Room Air Weight Weight: 92 kg Body Mass Index (BMI) 27.5 Physical Exam Const alert, oriented x3, no apparent distress, average body habitus, healthy appearing and well nourished Constitutional Narrative: Upper middle-aged, pleasant, white male, sitting up in bed, 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 and 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, patient appears nontoxic General Appearance: cooperative HEENT normocephalic, head/scalp atraumatic, hearing grossly normal bilaterally and moist oral mucous membranes HEENT Narrative: Mallampati 2, no thrush Eyes PERRL, EOMs intact bilaterally and conjunctivae normal Eyes Narrative: No scleral icterus Neck no lymphadenopathy and supple Neck Narrative: Trachea midline, no thyroid enlargement Resp normal respiratory effort, no retractions, no use of accessory muscles and clear to auscultation bilaterally Auscultation: Negative for rales, rhonchi or wheezes Cardio regular rate, regular rhythm, S1 normal heart sound, S2 normal heart sound, no rub, no gallops and no clicks Cardio Narrative: 2 out of 6 diastolic murmur GI normal to inspection, nondistended, normoactive bowel sounds, soft to palpation and non-tender Extremity no clubbing, cyanosis or edema Extremity Narrative: Pedal pulses are 2+ bilaterally, radial pulses are 2+ bilaterally Neuro oriented x3, CN's II-XII intact bilaterally, moves all extremities and no focal motor deficits Speech: speech normal Psych affect normal Psych Narrative: Eye contact is good, patient interacts appropriately Results Lab / Micro Data 10/18/23 12:53 10/18/23 12:53 Labs: Laboratory Results - last 24 hr 10/18/23 12:53: WBC 9.6, RBC 5.32, Hgb 15.6, Hct 46.3, MCV 87.0, MCH 29.3, MCHC 33.7, RDW Std Deviation 40.3, RDW Coeff of Edwardo 12.9, Plt Count 283, MPV 9.8, Immature Gran % (Auto) 0.300, Neut % (Auto) 74.2 H, Lymph % (Auto) 14.4 L, Cook % (Auto) 7.9, Eos % (Auto) 2.6, Baso % (Auto) 0.6, Absolute Neuts (auto) 7.1, Absolute Lymphs (auto) 1.38, Nucleated RBC % 0, Sodium 144, Potassium 3.9, Chloride 113 H, Carbon Dioxide 27.0, Anion Gap 4 L, BUN 19 H, Creatinine 0.98, Estim Creat Clear Calc 83.58, Est GFR (MDRD) Af Amer 99, Est GFR (MDRD) Non-Af 82, BUN/Creatinine Ratio 19.3, Glucose 120 H, Calcium 8.8, Troponin I High Sens 136 H* Assessment & Plan Assessment/Plan (1) Non-ST elevated myocardial infarction: (2) Hyperglycemia: PLAN: Plan NSTEMI -Suspect type I -Plan is for cardiac catheterization per discussion with cardiology -To be done on 10/19/2023 -Cycle cardiac enzymes -Continue heparin drip -Received Brilinta load in emergency department and will order for 90 mg tomorrow morning -Start metoprolol 12.5 mg p.o. twice daily -Start atorvastatin 80 mg daily -Per discussion with cardiology they would like him discharged on rosuvastatin 40 mg daily -Check lipids -Check hemoglobin A1c--> nonfasting blood sugar on admission was 120 -N.p.o. after midnight -Will run IV fluids at 75 cc/h with LR after midnight -Echocardiogram was ordered and pending -Cardiology consultation--> discussed case with Dr. Hogan Hyperglycemia -This is a nonfasting blood sugar and was 120 -Will check hemoglobin A1c to check for impaired glucose control Cardiac murmur-diastolic -Check echocardiogram DVT prophylaxis -Patient is on a heparin drip CODE STATUS -Full code is verified on admission Charges/Coding Visit Charges Inpatient E&M: 95357 Init Hosp L2
[2023-10-18] MEDS: Heparin Injection (Vial) 5,000 UNIT/ML VIAL 4000 UNIT IV (14:43)
[2023-10-18] MEDS: HEPARIN/D5w 25,000 UNITS 25,000 UNITS/250 ML IV.SOLN. 10 UNITS CONT INF (14:46)
[2023-10-18] MEDS: TICAGRELOR 90 MG TABLET 180 MG PO (14:47)
[2023-10-18 14:49] LABS: International Normalized Ratio 1.1; Partial Thromboplast Time 27.4 Seconds (24.1-36.2); Prothrombin Time (Protime)PT. 14.2 SECONDS (11.7-14.9)
[2023-10-18 15:00] LABS: D-Dimer Quantitative (DVT/PE) 0.34 FEU/ug/m (0.27-0.49)
[2023-10-18 15:17] LABS: Hemoglobin A1c 5.5 % (3.8-5.6)
--- NOTE | 2023-10-18 15:29 | PCM.CONS.C ---
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 His EKG does not show any Q waves and it does not show any acute ongoing ischemic changes. The patient has few risk factors. The family history is remote and not in a first-degree relative. His glucose was elevated at 120 and I am uncertain if this is fasting or not. Hemoglobin A1c will be evaluated. Lipids will be evaluated. And his blood pressure is adequately controlled during this emergency department stay. The patient has never smoked. It is my opinion that this represents an acute ischemic event last Sunday evening and he should proceed with left heart catheterization. The patient be loaded with Brilinta and aspirin, atorvastatin 80 mg daily will be instituted, he will be placed on low-dose beta-jaime therapy with a heart rate of 60. And made n.p.o. after midnight for left heart catheterization tomorrow morning. Patient will also be started on heparin and a 2D echocardiogram be done to evaluate his LV function and valvular heart disease. (2) Hyperglycemia: PLAN: Check a hemoglobin A1c. (3) Aortic valve regurgitation: QUALIFIERS: Cardiac valve disease etiology: nonrheumatic Qualified Code(s): I35.1 - Nonrheumatic aortic (valve) insufficiency PLAN: The patient has a diastolic murmur heard best along the right sternal and left sternal borders consistent with aortic insufficiency. A 2D echocardiogram is been ordered to evaluate the LV function and valvular heart disease. PLAN: Plan 1. Start Brilinta aspirin atorvastatin and metoprolol tartrate for acute ischemic syndrome therapy. Heparin will be instituted as well. 2. Cardiac catheterization tomorrow morning 3. 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 The first event occurred last Sunday evening when he was refereeing a game and in the fourth quarter he noted some pain in his left shoulder radiating down his left arm that made it heavy and hard to lift. He thought this may have been related to his previous left shoulder surgery. It resolved when he stopped running in the fourth quarter. 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 He was discussing 1 of one of his fellow refreeze and they suggested he come to be evaluated. The patient is EKG shows a normal sinus rhythm occasional PVCs and an incomplete right bundle branch block but no significant ST or T wave changes consistent with an acute ischemic event. However his troponin was positive at 146 which is now 48 hours after his most intense event. The patient's blood work otherwise shows an elevated nonfasting glucose his BUN and creatinine are within normal limits with a creatinine clearance above 60 we do not have lipids on him. The patient's cardiac risk factors are positive for questionable family history on his mother side but not in an immediate relative he has no history of diabetes he is not hypertensive does not have a history of hyperlipidemia and is never smoked. Currently the patient is resting comfortably in recumbent position in bed in the emergency department. He denies any complications or history of cardiac events in the past with 2 surgeries he has had 1 on his knee and 1 on his shoulder. COUNTS INCLUDE 234 BEDS AT THE [facility] Medical History no medical history Home Medications NK 08/12/20 [History Last Taken Unknown] Allergy/AdvReac Type Severity Reaction Status Date / Time No Known Allergies Allergy Verified 10/18/23 12:32 Family History Other CAD (coronary artery disease) Heart disease Hypertension Surgical History History of arthroscopy of left knee History of arthroscopy of left shoulder Surgical History no surgical history Social History household members: spouse and none housing: house Smoking Status: Never smoker alcohol intake: current alcohol intake frequency: a few times a month substance use type: does not use what type of physical activity do you participate in: running ROS Constitutional Constitutional: Reports as per HPI Eyes Eyes: Reports systems reviewed and no addt'l complaints, except as documented ENT HEENT: Reports systems reviewed and no addt'l complaints, except as documented Cardiovascular Cardiovascular: Reports as per HPI Respiratory/Chest Respiratory/Chest: Reports as per HPI Gastrointestinal Gastrointestinal: Reports systems reviewed and no addt'l complaints, except as documented Genitourinary Genitourinary: Reports systems reviewed and no addt'l complaints, except as documented Musculoskeletal Musculoskeletal: Reports as per HPI Integumentary Integumentary: Reports systems reviewed and no addt'l complaints, except as documented Neurologic Neurologic: Reports systems reviewed and no addt'l complaints, except as documented Psychiatric Psychiatric: Reports systems reviewed and no addt'l complaints, except as documented Endocrine Endocrinology: Reports systems reviewed and no addt'l complaints, except as documented Hematologic/Lymphatic Hematologic/Lymphatic: Reports systems reviewed and no addt'l complaints, except as documented Allergic/Immunologic Allergic/Immunologic: Reports systems reviewed and no addt'l complaints, except as documented Physical Exam Const oriented x3, no apparent distress and healthy appearing HEENT normocephalic Eyes EOMs intact bilaterally Neck no JVD and no carotid bruits Chest inspection of chest normal Resp normal respiratory effort and clear to auscultation bilaterally Cardio regular rate, regular rhythm, S1 normal heart sound, S2 normal heart sound, no rub and no gallops Heart Sounds: murmur diastolic II/ crescendo-decrescendo right sternal border Bruits: Negative for femoral bruit Peripheral Pulses: pulses 2+ throughout GI normal to inspection, nondistended, normoactive bowel sounds Extremity no pedal edema Skin no rashes or lesions noted Neuro Neuro Narrative: Alert and oriented x 3 Psych mental status grossly normal Risk Stratification Risk Stratification Applicable: Yes Age >/= 65: No >/= 3 CAD Risk Factors (HTN, HLD, DM, family hx of CAD, or current smoker): No Aspirin Use in the Past 7 Days: No Severe Angina (>/= episodes in 24 hours): Yes EKG ST Changes >/= 0.5mm: No Positive Cardiac Marker: Yes ELOISA Risk Stratification Score: 2 ELOISA % Risk: 8% Risk Charges/Coding Visit Charges Inpatient E&M: 80099 Init Hosp L3 Objective Data Vital Signs: Vital Signs Temp Pulse Resp BP Pulse Ox O2 Del Method 97.6 F L 62 22 H 135/88 H 96 Room Air 10/18/23 14:23 10/18/23 15:08 10/18/23 15:08 10/18/23 15:08 10/18/23 15:08 10/18/23 15:08 Oxygen Delivery Method Room Air Weight: 202 lb 13.204 oz Body Mass Index (BMI) 27.5 Lab / Micro Data Attestation: I reviewed the patient's lab results. 10/18/23 12:53 10/18/23 12:53 Labs: Laboratory Results - last 24 hr 10/18/23 12:53: WBC 9.6, RBC 5.32, Hgb 15.6, Hct 46.3, MCV 87.0, MCH 29.3, MCHC 33.7, RDW Std Deviation 40.3, RDW Coeff of Edwardo 12.9, Plt Count 283, MPV 9.8, Immature Gran % (Auto) 0.300, Neut % (Auto) 74.2 H, Lymph % (Auto) 14.4 L, Rooks % (Auto) 7.9, Eos % (Auto) 2.6, Baso % (Auto) 0.6, Absolute Neuts (auto) 7.1, Absolute Lymphs (auto) 1.38, Nucleated RBC % 0, PT 14.2, INR 1.1, APTT 27.4, D-Dimer Quant (PE/DVT) 0.34, Sodium 144, Potassium 3.9, Chloride 113 H, Carbon Dioxide 27.0, Anion Gap 4 L, BUN 19 H, Creatinine 0.98, Estim Creat Clear Calc 83.58, Est GFR (MDRD) Af Amer 99, Est GFR (MDRD) Non-Af 82, BUN/Creatinine Ratio 19.3, Glucose 120 H, Hemoglobin A1c 5.5, Calcium 8.8, Troponin I High Sens 136 H* Rhythm Strip Rhythm Strip: Sinus Rhythm Rate: 60 Ectopy: PVC(s) Cardiology Labs/Tests 10/18/23 12:53: WBC 9.6, RBC 5.32, Hgb 15.6, Hct 46.3, MCV 87.0, MCH 29.3, MCHC 33.7, Plt Count 283, MPV 9.8, Immature Gran % (Auto) 0.300, Neut % (Auto) 74.2 H, Lymph % (Auto) 14.4 L, Rooks % (Auto) 7.9, Eos % (Auto) 2.6, Baso % (Auto) 0.6, Absolute Neuts (auto) 7.1, Nucleated RBC % 0, PT 14.2, INR 1.1, APTT 27.4, D-Dimer Quant (PE/DVT) 0.34, Sodium 144, Potassium 3.9, Chloride 113 H, Carbon Dioxide 27.0, Anion Gap 4 L, BUN 19 H, Creatinine 0.98, Est GFR (MDRD) Af Amer 99, Est GFR (MDRD) Non-Af 82, BUN/Creatinine Ratio 19.3, Glucose 120 H, Hemoglobin A1c 5.5, Calcium 8.8 Rhythm: EKG: ECHO: Stress Test: Cardiac Cath: PCI: CT Surgery: Holter monitor: EPS: PPM: CXR: Chest CT Scan: EKG Initial EKG: Attestation: I personally reviewed and interpreted this EKG as follows: Interpretation: Normal sinus rhythm with incomplete right bundle branch block no evidence of significant ST-T wave changes. Occasional PVC
[2023-10-18 16:47] LABS: Troponin-I HS 132 pg/mL (3.0-78.0)
[2023-10-18 17:26] LABS: Partial Thromboplast Time 95.2 Seconds (24.1-36.2)
--- OUTSIDE RECORDS SUMMARY | 2023-10-18 19:24 | XMS RPT_ITS | CCD ---
Author Name Unknown Address [address] [place] [address] Organization [facility] Care Team Providers Care Can Maker Name Role Phone Asaf HOANG Unavailable Unavailable MIAH PATINO Unavailable Unavailable Nina Hoang Unavailable Unavailable Nina Hoang Unavailable Unavailable Miah Patino Primary Care Provider JUAN MARS Admitting Unavailable JUAN MARS Attending Unavailable MIAH PATINO Primary Care Unavailable Richard Guzman [phone] Consulting Unavailable EUNICE GOLDSTEIN Consulting Unavailable MIAH [...] Unavailable Asaf HOANG Attending Unavailable MIAH TRIVEDI [facility] Unavailable Asaf HOANG Attending Unavailable Asaf HOANG Attending Unavailable [facility] MIAH [facility] Unavailable Medications Current Medications Medication Drug [...] . 28 tablet 0 10/17/2021 10/24/2021 Active [id number] 200 actuat albuterol 0.09 mg/actuat metered dose [...] 182.9 cm Asaf Hoang MD Work Phone: [facility] 09-26-2023 12:58-0500 Body mass index (BMI) [Ratio] 27.8 kg/m2 Asaf Hoang MD Work Phone: [facility] 09-26-2023 12:58-0500 Body weight 92.99 kg Asaf Hoang MD Work Phone: [facility] 10-18-2022 12:29-0500 Body height 182.9 cm Asaf Hoang MD Work Phone: [facility] 10-18-2022 12:29-0500 Body mass index (BMI) [Ratio] 27.12 kg/m2 Asaf Hoang MD Work Phone: [facility] 10-18-2022 12:29-0500 Body weight 90.72 kg Asaf Hoang MD Work Phone: [facility] 10-18-2022 12:29-0500 Respiratory rate 18 /min Asaf Hoang MD Work Phone: [facility] 04-19-2022 13:39-0400 Body mass index (BMI) [Ratio] 27.12 kg/m2 Asaf Hoang MD Work Phone: [facility] 04-19-2022 13:39-0400 Body weight 90.72 kg Asaf Hoang MD Work Phone: [facility] 02-25-2022 11:34-0400 Body height 182.8 cm Text Entry [facility] 02-25-2022 11:34-0400 Body temperature 98.24 [degF] Text Entry [facility] 02-25-2022 11:34-0400 Diastolic blood pressure 88 mm[Hg] Text Entry [facility] 02-25-2022 11:34-0400 Heart rate 71 /min Text Entry [facility] 02-25-2022 11:34-0400 Respiratory rate 16 /min Text Entry [facility] 02-25-2022 11:34-0400 SaO2% (BldA) [Mass fraction] 97 % Text Entry [facility] 02-25-2022 11:34-0400 Systolic blood pressure 142 mm[Hg] Text Entry [facility] 02-22-2022 15:38-0400 Body height 182.9 cm Asaf Hoang MD Work Phone: [facility] 02-22-2022 15:38-0400 Body mass index (BMI) [Ratio] 27.12 kg/m2 Asaf Hoang MD Work Phone: [facility] 02-22-2022 15:38-0400 Body weight 90.72 kg Asaf Hoang MD Work Phone: [facility] 01-25-2022 12:40-0400 Body height 182.9 cm Asaf Hoang MD Work Phone: [facility] 01-25-2022 12:40-0400 Body mass index (BMI) [Ratio] 27.12 kg/m2 Asaf Hoang MD Work Phone: [facility] 01-25-2022 12:40-0400 Body weight 90.72 kg Asaf Hoang MD Work Phone: [facility] 01-25-2022 12:40-0400 Respiratory rate 18 /min Asaf Hoang MD Work Phone: [facility] 12-30-2021 11:34-0400 Body height 182.9 cm Asaf Hoang MD Work Phone: [facility] 12-30-2021 11:34-0400 Body mass index (BMI) [Ratio] 27.12 kg/m2 Asaf Hoang MD Work Phone: [facility] 12-30-2021 11:34-0400 Body weight 90.72 kg Asaf Hoang MD Work Phone: [facility] 12-30-2021 11:34-0400 Respiratory rate 18 /min Asaf Hoang MD Work Phone: [facility] 11-30-2021 13:02-0400 Body height 182.9 cm Asaf Hoang MD Work Phone: [facility] 11-30-2021 13:02-0400 Body mass index (BMI) [Ratio] 27.12 kg/m2 Asaf Hoang MD Work Phone: [facility] 11-30-2021 13:02-0400 Body weight 90.72 kg Asaf Hoang MD Work Phone: [facility] 08-17-2021 15:02-0500 Body height 182.9 cm Asaf Hoang MD Work Phone: [facility] 08-17-2021 15:02-0500 Body mass index (BMI) [Ratio] 25.09 kg/m2 Asaf Hoang MD Work Phone: [facility] 08-17-2021 15:02-0500 Body weight 83.92 kg Asaf Hoang MD Work Phone: [facility] 08-17-2021 15:02-0500 Respiratory rate 18 /min Asaf Hoang MD Work Phone: [facility] 10-02-2019 13:04-0500 BMI (Body Mass Index) 25.09 kg/m2 Asaf Hoang [facility] 10-02-2019 13:04-0500 Body weight 83.92 kg Asaf Hoang [facility] 10-02-2019 13:04-0500 Height 182.9 cm Asaf Hoang [facility] 10-02-2019 13:04-0500 Respiratory Rate 16 /min Asaf Hoang [facility] Encounters Encounter Date Encounter Type Care Provider Facility Start: 10-02-2023 ambulatory Asaf HOANG [facility] Start: 09-26-2023 End: 09-26-2023 ambulatory Nina HOANG Facility:[facility] Start: 09-26-2023 End: 09-26-2023 Office outpatient visit 10 minutes Asaf Hoang MD Work Phone: [facility] Procedures Date Procedure Procedure Detail [...] Work Phone: Start: 10-04-2019 End: 10-04-2019 Arthrocentesis Asaf Hoang Work Phone: Plan of Treatment Date Care Activity Detail Author Start: 12-17-2029 Tetanus vaccination Tetanus: Every 10yrs [facility] Start: 02-06-2028 Tetanus vaccination [facility] Start: 05-04-2023 Influenza vaccination Sequential Influenza Vaccine (#1) [facility] Start: 06-21-2022 End: 06-21-2022 Patient encounter procedure 06/21/2022 Office Visit Orthopedic Surgery Asaf Hoang MD [facility] [place] [address] [facility] Start: 05-04-2022 Influenza vaccination Sequential Influenza Vaccine (#1) [facility] Start: 04-19-2022 End: 04-19-2022 Patient encounter procedure 04/19/2022 Office Visit Orthopedic Surgery Asaf Hoang MD [facility] [place] [address] [facility] Start: 01-25-2022 End: 01-25-2022 Patient encounter procedure 01/25/2022 Office Visit Orthopedic Surgery Asaf Hoang MD [address] [place] [address] [facility] Start: 11-30-2021 End: 11-30-2021 Patient encounter procedure 11/30/2021 Office Visit Orthopedic Surgery Asaf Hoang MD [address] [place] [address] [facility] Start: 11-08-2021 End: 11-08-2021 Admission to same day surgery center 11/08/2021 Surgery Asaf Hoang MD [address] [place] [address] LEFT SHOULDER ARTHROSCOPY WITH ROTATOR CUFF REPAIR [facility] Payers Date Payer Category Payer Private Health Insurance AETNA A ETNA CHOICE POS/POSII/PREMIER CARE/PREMIER CARE PLUS xxxxxxxxxx 2019-Present xxxxxxxxxx [id number] 2019 Private Health Insurance [id number] 2019 Private Health Insurance AETNA A ETNA CHOICE POS/POSII/PREMIER CARE/PREMIER CARE PLUS [id number] 2019-Present [phone] [address] [place] [address] [id number] 2016 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'[employer]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 [id number] 2016-Present [id number] 2013 Unknown [id number] 1959 Unknown [id number] 1959 Unknown [id number] 1959 Unknown [id number] 1959 Unknown [id number] 1959 Unknown [id number] 1959 Unknown [id number] 1959 Unknown [id number] 1959 Unknown [id number] 1959 Unknown [id number] 1959 Private Health Insurance [id number] Unknown AETNA\AETNA HEALTHCARE Unknown [id number] Social History Date Type Detail Facility Start: 10-04-2019 End: 01-25-2022 Tobacco smoking status NHIS Never smoker [facility] Start: 10-04-2019 End: 09-26-2023 Alcohol intake Current non-drinker of alcohol (finding) [facility] Start: 1960 Sex Assigned At Not on file [facility] Start: 10-04-2019 End: 01-25-2022 Tobacco use and exposure Never used [facility] Start: 09-17-2021 End: 10-18-2022 Exposure to SARS-CoV-2 (event) Not sure [facility] Start: 10-24-2021 End: 11-03-2021 Exposure to SARS-CoV-2 (event) Yes [facility] Start: 01-25-2022 End: 01-01-2023 Cigarette pack-years [facility] Start: 01-01-2023 Tobacco use panel [facility] Start: 01-01-2023 Gender identity Identifies as male gender (finding) [facility] Start: 01-01-2023 Sexual orientation Heterosexual (finding) [facility] Medical Equipment Procedure Code Equipment Code Equipment Origin al Text Equipment Identifier Dates [place] 1.3mm Sut ure 3 Ribbons Pro Rc Y-Knot - [id number] Start: 11-08-2021 Clinical Notes 05-27-2018 to [...] MD Authorized by: Asaf Hoang MD CPT 10822 - Large Joint Arthrocentesis: Consent given by: [...] MD Authorized by: Asaf Hoang MD CPT 88154 - Large Joint Arthrocentesis: Consent given by: [...] Hoang MD 09/26/2023 documented in this encounter [facility] 10-18-2022 History of Present illness Narrative Associated Order(s): LG Jt Injection/Arthrocentesis: L knee Post-Procedure Diagnose(s): Arthritis of both knees LG Jt Injection/Arthrocentesis: L knee Performed by: Asaf Hoang MD Authorized by: Asaf Hoang MD CPT 01708 - Large Joint Arthrocentesis: Consent given by: Patient Supporting Documentation: Indications: Pain Procedure Details: Location: Knee Site: L knee Needle size: 20 G Approach: Lateral Medications: 40 mg triamcinolone acetonide 40 mg/mL Anesthetic used: Bupivacaine 0.5% Anesthetic amount (mL): 1 Patient tolerance: Patient tolerated the procedure well with no immediate complications documented in this encounter [facility] 04-20-2022 History of Present illness Narrative [...] Hoang MD 04/20/2022 documented in this encounter [facility] 04-20-2022 History of Present illness Narrative Completed and faxed RTW eval. With continued restricition through 06/21/22 documented in this encounter [facility] 04-13-2022 History of Present illness Narrative Faxed updated work restrictions to the [facility] fax [phone] documented in this encounter [facility] 03-29-2022 History of Present illness Narrative [...] Hoang MD 03/29/2022 documented in this encounter [facility] 02-22-2022 History of Present illness Narrative [...] Hoang MD 02/22/2022 documented in this encounter [facility] 01-27-2022 History of Present illness Narrative [...] Hoang MD 01/27/2022 documented in this encounter [facility] 05-02-2022 History of Present illness Narrative PT referral with light weight training added faxed to [phone] per pt request documented in this encounter [facility] 12-15-2021 Note HNO ID: [id number] Author: Primo Tineo MD Service: ? Author [...] Tineo MD December 15, 2021 9:30 AM [facility] 12-15-2021 History of Present illness Narrative Assessment [...] 2021 9:30 AM documented in this encounter [facility] 12-15-2021 Instructions Primo Tineo MD - 12/15/2021 9:30 AM EDT Images from the original note were not included. P documented in this encounter [facility] 12-05-2021 History of Present illness Narrative Faxed PT order to [facility] fax [phone] documented in this encounter [facility] 12-01-2021 History of Present illness Narrative [...] Hoang MD 12/01/2021 documented in this encounter [facility] 11-04-2021 History of Present illness Narrative refaxed corrected FMLA with date of 10/17/21 as first day off to fax [phone] documented in this encounter [facility] 11-02-2021 History of Present illness Narrative Completed FMLA form and emailed to patient documented in this encounter [facility] 10-17-2021 History of Present illness Narrative Referral faxed to [facility] for MRI documented in this encounter [facility] 10-12-2021 History of Present illness Narrative Associated Order(s): LG Jt Injection/Arthrocentesis: L knee Post-Procedure Diagnose(s): Arthritis of both knees LG Jt Injection/Arthrocentesis: L knee Performed by: Asaf Hoang MD Authorized by: Asaf Hoang MD CPT 61237 - Large Joint Arthrocentesis: Consent given by: [...] Hoang MD 10/12/2021 documented in this encounter [facility] 08-18-2021 History of Present illness Narrative Associated Order(s): LG Jt Injection/Arthrocentesis: L knee Post-Procedure Diagnose(s): Arthritis of both knees LG Jt Injection/Arthrocentesis: L knee Performed by: Asaf Hoang MD Authorized by: Asaf Hoang MD CPT 92892 - Large Joint Arthrocentesis: Consent given by: [...] Hoang MD 08/18/2021 documented in this encounter [facility] documented as of this encounter (statuses as of 12/15/2021) [facility] Diagnosis Left knee pain, unspecified chronicity- Primary [facility] Diagnosis Arthritis of both knees- Primary [facility] Diagnosis Arthritis of both knees- Primary [facility] Diagnosis Left shoulder pain, unspecified chronicity- Primary [facility] Diagnosis Left shoulder pain, unspecified chronicity- Primary [facility] Diagnosis Left shoulder pain, unspecified chronicity- Primary [facility] Diagnosis Traumatic tear of left rotator cuff- Primary Exposure to SARS-associated coronavirus- Primary Traumatic tear of left rotator cuff, unspecified tear extent, initial encounter [facility] Diagnosis Traumatic tear of left rotator cuff- Primary Exposure to SARS-associated coronavirus- Primary [facility] Diagnosis Traumatic tear of left rotator cuff, unspecified tear extent, initial encounter- Primary [facility] Diagnosis Traumatic tear of left rotator cuff, unspecified tear extent, initial encounter- Primary documented in this encounter [facility] note* Diagnosis Epiretinal membrane (ERM) of right eye- Primary Optic cupping of both eyes High myopia, bilateral Myopia Pseudophakia of both eyes Lens replaced by other means [facility] Diagnosis Traumatic tear of left rotator cuff, unspecified tear extent, initial encounter- Primary documented in this encounter [facility] note* Diagnosis Traumatic tear of left rotator cuff, unspecified tear extent, initial encounter- Primary documented in this encounter [facility] note* Diagnosis Traumatic tear of left rotator cuff, unspecified tear extent, subsequent encounter- Primary documented in this encounter [facility] note* Diagnosis Arthritis of both knees- Primary documented in this encounter [facility] note* Diagnosis Arthritis of both knees- Primary documented in this encounter [facility] Purpose Family History No Family History Records [...] FoundDocuments on File Type Date Recorded 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 Advance Directives and Living Will Documents on File Type Date Recorded 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 Advance Directives and Living Will Documents on File Type Date Recorded 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 Advance Directives and Livin g Will 11/08/2021 7:28 AM Documents on File Type Date Recorded 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 Advance Directives and Livin g Will 11/08/2021 7:28 AM History of Present Illness * Asaf Hoang MD - 10/04/2019 9:00 AM EST Associated Order(s): LG Jt Injection/Arthrocentesis: L knee Post-Procedure Diagnose(s): Arthritis of both knees LG Jt Injection/Arthrocentesis: L knee Performed by: Asaf Hoang MD Authorized by: Asaf Hoang MD CPT 21170 - Large Joint Arthrocentesis: Consent given by: [...] MD Authorized by: Asaf Hoang MD CPT 87309 - Large Joint Arthrocentesis: Consent given by: [...] file Gets together: Not on file Attends mosque service: Not on file Active member of [...] Calcifications of infrapatellar ligament consistent with old [place] and Vjkrxzx-Jbkpev-Plefkfxen. 3. LEFT KNEE: Mild medial compartment degeneration. Infrapatellar ligament calcification consistent with old [place]. ARR/trw Workstation ID: [id number] Asaf Hoang MD 10/04/2019 documented in this encounter Assessments Diagnosis Right knee pain, unspecified chronicity Arthritis of both knees Reason for Referral Specialty Diagnoses / Procedures Referred By Cristiane green Referred To Contact Radiology Diagnoses Left shoulder pain, unspecified chronicity Procedures MR Shoulder Left Without Contrast Asaf Hoang MD [address] [place] [address] Referral ID Status Reason Start Date Expiration Date V isits Requested Visits Authorized [id number] Pending Review 10/17/2021 10/17/2022 1 1 Referral ID Status Reason Start Date Expiration Date Visits Re quested Visits Authorized [id number] Closed 10/17/2021 10/17/2022 1 1 Specialty Diagnoses / Procedures Referred By Contac t Referred To Contact Radiology Diagnoses Left shoulder pain, unspecified chronicity Procedures MR Shoulder Left Without Contrast Asaf Hoang MD [address] [place] [address] [facility] [address] [place] [address] Phone: [phone] Referral ID Status Reason Start Date Expiration Date V isits Requested Visits Authorized [id number] Authorized 10/17/2021 10/17/2022 1 1 Specialty Diagnoses / Procedures Referred By Contac t Referred To Contact Physical Therapy Diagnoses Traumatic tear of left rotator cuff, unspecified tear extent, initial encounter Asaf Hoang MD [address] [place] [address] Referral ID Status Reason Start Date Expiration Date Visits Requested Visits Authorized [id number] Authorized Patient Preference 12/01/2021 12/01/2022 1 1 Specialty Diagnoses / Procedures Referred By Contac t Referred To Contact Physical Therapy Diagnoses Traumatic tear of left rotator cuff, unspecified tear extent, initial encounter Asaf Hoang MD [address] [place] [address] [address] Phone: [phone] Referral ID Status Reason Start Date Expiration Date Visits Requested Visits Authorized [id number] Authorized Patient Preference 01/02/2022 01/02/2023 1 1 Specialty Diagnoses / Procedures Referred By Contac t Referred To Contact Physical Therapy Diagnoses Traumatic tear of left rotator cuff, unspecified tear extent, initial encounter Asaf Hoang MD [address] [place] [id number] [facility] [address] [place] [address] Referral ID Status Reason Start Date Expiration Date Visits Requested Visits Authorized [id number] Authorized Patient Preference 02/28/2022 02/28/2023 1 1 Medications Administered Section Active Administered Medications - up to 3 most recent administrations Medication Order MAR Action Action Date Dose Rate Site fluorescein-benoxinate 0.25-0.4 % 1 Drop (FLURESS) 1 Drop, BOTH EYES, DIRECTED, Starting on Fatimah 12/15/21 at 0900, Until Sun12/15/21 at 2058, Administer for applanation tonometry. In the event of a Fluress shortage, administer [place]-Fluor 1 drop into both eyes as directed [...] 1 Drop, BOTH EYES, DIRECTED, Starting on [facility] 12/15/21 at 0900, Until Fatimah 12/15/21 at 2058, Administer for dilation Given [...] DATE CREATED AUTHOR AUTHOR'S ORGANIZ ATION 02/27/2018 [facility] DATE CREATED AUTHOR AUTHOR'S ORGANIZ ATION 04/19/2019 [facility] DATE CREATED AUTHOR AUTHOR'S ORGANIZ ATION 12/19/2019 [facility] DATE CREATED AUTHOR AUTHOR'S ORGANIZ ATION 10/31/2021 [facility] DATE CREATED AUTHOR AUTHOR'S ORGANIZ ATION 11/25/2021 [facility] DATE CREATED AUTHOR AUTHOR'S ORGANIZ ATION 12/16/2021 [facility] DATE CREATED AUTHOR AUTHOR'S ORGANIZ ATION 02/09/2022 [facility] DATE CREATED AUTHOR AUTHOR'S ORGANIZ ATION 02/28/2022 [facility] DATE CREATED AUTHOR AUTHOR'S ORGANIZ ATION 07/30/2023 [facility] DATE CREATED AUTHOR AUTHOR'S ORGANIZ ATION 09/27/2023 [facility] DATE CREATED AUTHOR AUTHOR'S ORGANIZ ATION 10/04/2023 [facility] Reason for Visit (unrecogniz [...] Care Teams (unrecognized sec tion and content) Can Maker Relationship Specialty Start Date End Date Miah Patino MD [address] [facility] [address] [place] [address] PCP - General Family Medicine 09/07/15 Can Maker Relationship Specialty Start Date End Date Miah Patino MD [address] [facility] [address] [place], [place] [id number] PCP - General Family Medicine 09/07/15 Can Maker Relationship Specialty Start Date End Date Miah Patino MD [address] [facility] [address] [place], [place] [id number] PCP - General Family Medicine 09/07/15 Can Maker Relationship Specialty Start Date End Date Miah Patino MD [address] [facility] [address] [place], [place] [address] PCP - General Family Medicine 09/07/15 Can Maker Relationship Specialty Start Date End Date Miah Patino MD [address] [facility] [address] [place], [place] [address] PCP - General Family Medicine 09/07/15 Can Maker Relationship Specialty Start Date End Date No, Physician [facility] PCP - General 11/07/21 Can Maker Relationship Specialty Start Date End Date No, Physician [facility] PCP - General 11/07/21 Can Maker Relationship Specialty Start Date End Date No, Physician [facility] PCP - General 11/07/21 Can Maker Relationship Specialty Start Date End Date Miah Patino MD PCP - General Family Practice 05/06/14 Can Maker Relationship Specialty Start Date End Date Miah Trivedi MD [address] [facility] [address] [place] [address] PCP - General Endocrinology/Metabolism 12/30/21 Can Maker Relationship Specialty Start Date End Date Miah Trivedi MD [address] [facility] [address] [place] [address] PCP - General Endocrinology/Metabolism 12/30/21 Can Maker Relationship Specialty Start Date End Date Miah Trivedi MD [address] [facility] [address] [place] [address] PCP - General Endocrinology/Metabolism 12/30/21 Can Maker Relationship Specialty Start Date End Date Miah Trivedi MD [address] [facility] [address] [place] [address] PCP - General Endocrinology/Metabolism 12/30/21 Can Maker Relationship Specialty Start Date End Date Miah Trivedi MD [address] [place] [address] [address] [place], [place] [id number] PCP - General Endocrinology/Metabolism 12/30/21 Can Maker Relationship Specialty Start Date End Date Miah Trivedi MD [address] [place] [address] [address] [place], [place] [id number] PCP - General Endocrinology/Metabolism 12/30/21 Can Maker Relationship Specialty Start Date End Date Miah Trivedi MD [address] [place] [address] [address] [place] [address] PCP - General Endocrinology/Metabolism 12/30/21 Can Maker Relationship Specialty Start Date End Date Miah Trivedi MD [address] [place] [address] PCP - General Endocrinology/Metabolism 12/30/21 Source Comments (unrecognize d section and content) In the event this informatio n is protected by the Federal Confidentiality of Alcohol and Drug Abuse Patient Records regulations: The Federal rules restrict any use of the information to criminally investigate or prosecute any alcohol or drug abuse patient.[facility] <item><item> Privacy Markings (unrecogniz ed section and [...] BE BASED ON THE PRIMARY CLINICAL RECORDS. [facility]. provides no warranty or guarantee of the accuracy or completeness of information in this document.
[2023-10-18 19:32] LABS: Troponin-I HS 136 pg/mL (3.0-78.0)
--- OUTSIDE RECORDS SUMMARY | 2023-10-18 20:28 | XMS RPT_ITS | CCD ---
Author Name Unknown Address [address] [place] [address] Organization [facility] Care Team Providers Care [employer] Name Role Phone Asaf HOANG Unavailable Unavailable MIAH PATINO Unavailable Unavailable Nina Hoang Unavailable Unavailable Nina Hoang Unavailable Unavailable Miah Patino Primary Care Provider JUAN MARS Admitting Unavailable JUAN MARS Attending Unavailable MIAH PATINO Primary Care Unavailable Richard Guzman [phone] Consulting Unavailable EUNICE GOLDSTEIN Consulting Unavailable MIAH [...] Unavailable Asaf HOANG Attending Unavailable MIAH TRIVEDI [facility] Unavailable Asaf HOANG Attending Unavailable Asaf HOANG Attending Unavailable [facility] MIAH [facility] Unavailable Medications Current Medications Medication Drug Class(es) [...] . 28 tablet 0 10/17/2021 10/24/2021 Active [id number] 200 actuat albuterol 0.09 mg/actuat metered dose [...] 182.9 cm Asaf Hoang MD Work Phone: [facility] 09-26-2023 12:58-0500 Body mass index (BMI) [Ratio] 27.8 kg/m2 Asaf Hoang MD Work Phone: [facility] 09-26-2023 12:58-0500 Body weight 92.99 kg Asaf Hoang MD Work Phone: [facility] 10-18-2022 12:29-0500 Body height 182.9 cm Asaf Hoang MD Work Phone: [facility] 10-18-2022 12:29-0500 Body mass index (BMI) [Ratio] 27.12 kg/m2 Asaf Hoang MD Work Phone: [facility] 10-18-2022 12:29-0500 Body weight 90.72 kg Asaf Hoang MD Work Phone: [facility] 10-18-2022 12:29-0500 Respiratory rate 18 /min Asaf Hoang MD Work Phone: [facility] 04-19-2022 13:39-0400 Body mass index (BMI) [Ratio] 27.12 kg/m2 Asaf Hoang MD Work Phone: [facility] 04-19-2022 13:39-0400 Body weight 90.72 kg Asaf Hoang MD Work Phone: [facility] 02-25-2022 11:34-0400 Body height 182.8 cm Text Entry [facility] 02-25-2022 11:34-0400 Body temperature 98.24 [degF] Text Entry [facility] 02-25-2022 11:34-0400 Diastolic blood pressure 88 mm[Hg] Text Entry [facility] 02-25-2022 11:34-0400 Heart rate 71 /min Text Entry [facility] 02-25-2022 11:34-0400 Respiratory rate 16 /min Text Entry [facility] 02-25-2022 11:34-0400 SaO2% (BldA) [Mass fraction] 97 % Text Entry [facility] 02-25-2022 11:34-0400 Systolic blood pressure 142 mm[Hg] Text Entry [facility] 02-22-2022 15:38-0400 Body height 182.9 cm Asaf Hoang MD Work Phone: [facility] 02-22-2022 15:38-0400 Body mass index (BMI) [Ratio] 27.12 kg/m2 Asaf Hoang MD Work Phone: [facility] 02-22-2022 15:38-0400 Body weight 90.72 kg Asaf Hoang MD Work Phone: [facility] 01-25-2022 12:40-0400 Body height 182.9 cm Asaf Hoang MD Work Phone: [facility] 01-25-2022 12:40-0400 Body mass index (BMI) [Ratio] 27.12 kg/m2 Asaf Hoang MD Work Phone: [facility] 01-25-2022 12:40-0400 Body weight 90.72 kg Asaf Hoang MD Work Phone: [facility] 01-25-2022 12:40-0400 Respiratory rate 18 /min Asaf Hoang MD Work Phone: [facility] 12-30-2021 11:34-0400 Body height 182.9 cm Asaf Hoang MD Work Phone: [facility] 12-30-2021 11:34-0400 Body mass index (BMI) [Ratio] 27.12 kg/m2 Asaf Hoang MD Work Phone: [facility] 12-30-2021 11:34-0400 Body weight 90.72 kg Asaf Hoang MD Work Phone: [facility] 12-30-2021 11:34-0400 Respiratory rate 18 /min Asaf Hoang MD Work Phone: [facility] 11-30-2021 13:02-0400 Body height 182.9 cm Asaf Hoang MD Work Phone: [facility] 11-30-2021 13:02-0400 Body mass index (BMI) [Ratio] 27.12 kg/m2 Asaf Hoang MD Work Phone: [facility] 11-30-2021 13:02-0400 Body weight 90.72 kg Asaf Hoang MD Work Phone: [facility] 08-17-2021 15:02-0500 Body height 182.9 cm Asaf Hoang MD Work Phone: [facility] 08-17-2021 15:02-0500 Body mass index (BMI) [Ratio] 25.09 kg/m2 Asaf Hoang MD Work Phone: [facility] 08-17-2021 15:02-0500 Body weight 83.92 kg Asaf Hoang MD Work Phone: [facility] 08-17-2021 15:02-0500 Respiratory rate 18 /min Asaf Hoang MD Work Phone: [facility] 10-02-2019 13:04-0500 BMI (Body Mass Index) 25.09 kg/m2 Asaf Hoang [facility] 10-02-2019 13:04-0500 Body weight 83.92 kg Asaf Hoang [facility] 10-02-2019 13:04-0500 Height 182.9 cm Asaf Hoang [facility] 10-02-2019 13:04-0500 Respiratory Rate 16 /min Asaf Hoang [facility] Encounters Encounter Date Encounter Type Care Provider Facility Start: 10-02-2023 ambulatory Asaf HOANG [facility] Start: 09-26-2023 End: 09-26-2023 ambulatory Nina HOANG Facility:[facility] Start: 09-26-2023 End: 09-26-2023 Office outpatient visit 10 minutes Asaf Hoang MD Work Phone: [facility] Procedures Date Procedure Procedure [...] Start: 12-17-2029 Tetanus vaccination Tetanus: Every 10yrs [facility] Start: 02-06-2028 Tetanus vaccination [facility] Start: 05-04-2023 Influenza vaccination Sequential Influenza Vaccine (#1) [facility] Start: 06-21-2022 End: 06-21-2022 Patient encounter procedure 06/21/2022 Office Visit Orthopedic Surgery Asaf Hoang MD [facility] [place] [address] [facility] Start: 05-04-2022 Influenza vaccination Sequential Influenza Vaccine (#1) [facility] Start: 04-19-2022 End: 04-19-2022 Patient encounter procedure 04/19/2022 Office Visit Orthopedic Surgery Asaf Hoang MD [facility] [place] [address] [facility] Start: 01-25-2022 End: 01-25-2022 Patient encounter procedure 01/25/2022 Office Visit Orthopedic Surgery Asaf Hoang MD [address] [place] [address] [facility] Start: 11-30-2021 End: 11-30-2021 Patient encounter procedure 11/30/2021 Office Visit Orthopedic Surgery Asaf Hoang MD [address] [place] [address] [facility] Start: 11-08-2021 End: 11-08-2021 Admission to same day surgery center 11/08/2021 Surgery Asaf Hoang MD [address] [place] [address] LEFT SHOULDER ARTHROSCOPY WITH ROTATOR CUFF REPAIR [facility] Per[facility] Payers Date Payer Category Payer Private Health Insurance AETNA A ETNA CHOICE POS/POSII/PREMIER CARE/PREMIER CARE PLUS xxxxxxxxxx 2019-Present xxxxxxxxxx [id number] 2019 Private Health Insurance [id number] 2019 Private Health Insurance AETNA A ETNA CHOICE POS/POSII/PREMIER CARE/PREMIER CARE PLUS [id number] 2019-Present [phone] [address] [place] [address] [id number] 2016 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'S C [employer] MANAGEMENT [id number] 2016-Present [id number] 2013 Unknown [id number] 1959 Unknown [id number] 1959 Unknown [id number] 1959 Unknown [id number] 1959 Unknown [id number] 1959 Unknown [id number] 1959 Unknown [id number] 1959 Unknown [id number] 1959 Unknown [id number] 1959 Unknown [id number] 1959 Private Health Insurance [id number] Unknown AETNA\AETNA HEALTHCARE Unknown [id number] Social History Date Type Detail Facility Start: 10-04-2019 End: 01-25-2022 Tobacco smoking status NHIS Never smoker [facility] Start: 10-04-2019 End: 09-26-2023 Alcohol intake Current non-drinker of alcohol (finding) [facility] Start: 1960 Sex Assigned At Not on file [facility] Start: 10-04-2019 End: 01-25-2022 Tobacco use and exposure Never used [facility] Start: 09-17-2021 End: 10-18-2022 Exposure to SARS-CoV-2 (event) Not sure [facility] Start: 10-24-2021 End: 11-03-2021 Exposure to SARS-CoV-2 (event) Yes [facility] Start: 01-25-2022 End: 01-01-2023 Cigarette pack-years [facility] Tobacco smoking consumption unknown [facility] Start: 01-01-2023 Tobacco use panel [facility] Start: 01-01-2023 Gender identity Identifies as male gender (finding) [facility] Start: 01-01-2023 Sexual orientation Heterosexual (finding) [facility] Medical Equipment Procedure Code Equipment Code Equipment Origin al Text Equipment Identifier Dates [place] 1.3mm Sut ure 3 Ribbons Pro Rc Y-Knot - [id number] Start: 11-08-2021 Clinical Notes 05-27-2018 to [...] MD Authorized by: Asaf Hoang MD CPT 82277 - Large Joint Arthrocentesis: Consent given by: [...] MD Authorized by: Asaf Hoang MD CPT 78790 - Large Joint Arthrocentesis: Consent given by: [...] Hoang MD 09/26/2023 documented in this encounter [facility] 10-18-2022 History of Present illness Narrative Associated Order(s): LG Jt Injection/Arthrocentesis: L knee Post-Procedure Diagnose(s): Arthritis of both knees LG Jt Injection/Arthrocentesis: L knee Performed by: Asaf Hoang MD Authorized by: Asaf Hoang MD CPT 10282 - Large Joint Arthrocentesis: Consent given by: Patient Supporting Documentation: Indications: Pain Procedure Details: Location: Knee Site: L knee Needle size: 20 G Approach: Lateral Medications: 40 mg triamcinolone acetonide 40 mg/mL Anesthetic used: Bupivacaine 0.5% Anesthetic amount (mL): 1 Patient tolerance: Patient tolerated the procedure well with no immediate complications documented in this encounter [facility] 04-20-2022 History of Present illness Narrative [...] Hoang MD 04/20/2022 documented in this encounter [facility] 04-20-2022 History of Present illness Narrative Completed and faxed RTW eval. With continued restricition through 06/21/22 documented in this encounter [facility] 04-13-2022 History of Present illness Narrative Faxed updated work restrictions to the [facility] fax [phone] documented in this encounter [facility] 03-29-2022 History of Present illness Narrative [...] Hoang MD 03/29/2022 documented in this encounter [facility] 02-22-2022 History of Present illness Narrative [...] Hoang MD 02/22/2022 documented in this encounter [facility] 01-27-2022 History of Present illness Narrative [...] Hoang MD 01/27/2022 documented in this encounter [facility] 05-02-2022 History of Present illness Narrative PT referral with light weight training added faxed to [phone] per pt request documented in this encounter [facility] 12-15-2021 Note HNO ID: [id number] Author: Primo Tineo MD Service: ? Author [...] Tineo MD December 15, 2021 9:30 AM [facility] 12-15-2021 History of Present illness Narrative Assessment [...] 2021 9:30 AM documented in this encounter [facility] 12-15-2021 Instructions Primo Tineo MD - 12/15/2021 9:30 AM EDT Images from the original note were not included. P documented in this encounter [facility] 12-05-2021 History of Present illness Narrative Faxed PT order to [facility] fax [phone] documented in this encounter [facility] 12-01-2021 History of Present illness Narrative [...] Hoang MD 12/01/2021 documented in this encounter [facility] 11-04-2021 History of Present illness Narrative refaxed corrected FMLA with date of 10/17/21 as first day off to fax [phone] documented in this encounter [facility] 11-02-2021 History of Present illness Narrative Completed FMLA form and emailed to patient documented in this encounter [facility] 10-17-2021 History of Present illness Narrative Referral faxed to [facility] for MRI documented in this encounter [facility] 10-12-2021 History of Present illness Narrative Associated Order(s): LG Jt Injection/Arthrocentesis: L knee Post-Procedure Diagnose(s): Arthritis of both knees LG Jt Injection/Arthrocentesis: L knee Performed by: Asaf Hoang MD Authorized by: Asaf Hoang MD CPT 13766 - Large Joint Arthrocentesis: Consent given by: [...] Hoang MD 10/12/2021 documented in this encounter [facility] 08-18-2021 History of Present illness Narrative Associated Order(s): LG Jt Injection/Arthrocentesis: L knee Post-Procedure Diagnose(s): Arthritis of both knees LG Jt Injection/Arthrocentesis: L knee Performed by: Asaf Hoang MD Authorized by: Asaf Hoang MD CPT 89679 - Large Joint Arthrocentesis: Consent given by: [...] Hoang MD 08/18/2021 documented in this encounter [facility] documented as of this encounter (statuses as of [facility]15[facility]2021[facility], unspecified chronicity- Primary [facility] Diagnosis Arthritis of both knees- Primary [facility]th[facility] of both knees- [facility] Left shoulder pain, unspecified chronicity- Primary [facility] Diagnosis Left shoulder pain, unspecified chronicity- Primary [facility] Diagnosis Left shoulder pain, unspecified chronicity- [facility] Diagnosis Traumatic tear of left rotator cuff- Primary Exposure to SARS-associated coronavirus- Primary Traumatic tear of left rotator cuff, unspecified tear extent, initial encounter [facility] Diagnosis Traumatic tear of left rotator cuff- Primary Exposure to SARS-associated coronavirus- [facility] Diagnosis Traumatic tear of left rotator cuff, unspecified tear extent, initial encounter- Primary [facility] Diagnosis Traumatic tear of left rotator cuff, unspecified tear extent, initial encounter- Primary documented in this encounter [facility] note* Diagnosis Epiretinal membrane (ERM) of right eye- Primary Optic cupping of both eyes High myopia, bilateral Myopia Pseudophakia of both eyes Lens replaced by other means [facility] Diagnosis Traumatic tear of left rotator cuff, unspecified tear extent, initial encounter- Primary documented in this encounter [facility] note* Diagnosis Traumatic tear of left rotator cuff, unspecified tear extent, initial encounter- Primary documented in this encounter [facility] note* Diagnosis Traumatic tear of left rotator cuff, unspecified tear extent, subsequent encounter- Primary documented in this encounter [facility] note* Diagnosis Arthritis of both knees- Primary documented in this encounter [facility] note* Diagnosis Arthritis of both knees- Primary documented in this encounter [facility] Purpose Family History No Family History [...] FoundDocuments on File Type Date Recorded Patient [place] Expl anation Advance Directives and Living Will Documents on File Type Date Recorded Patient [place] Expl anation Advance Directives and Living Will Documents on File Type Date Recorded Patient [place] Expl anation Advance Directives and Livin g Will 11/08/2021 7:28 AM Documents on File Type Date Recorded Patient [place] Expl anation Advance Directives and Livin g Will 11/08/2021 7:28 AM History of Present Illness * Asaf Hoang MD - 10/04/2019 9:00 AM EST Associated Order(s): LG Jt Injection/Arthrocentesis: L knee Post-Procedure Diagnose(s): Arthritis of both knees LG Jt Injection/Arthrocentesis: L knee Performed by: Asaf Hoang MD Authorized by: Asaf Hoang MD CPT 80979 - Large Joint Arthrocentesis: Consent given by: [...] MD Authorized by: Asaf Hoang MD CPT 54821 - Large Joint Arthrocentesis: Consent given by: [...] file Gets together: Not on file Attends latter day service: Not on file Active member of [...] 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 3. LEFT KNEE: Mild medial compartment degeneration. 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 ARR/trw Workstation ID: [id number] Asaf Hoang MD 10/04/2019 documented in this encounter Assessments Diagnosis Right knee pain, unspecified chronicity Arthritis of both knees Reason for Referral Specialty Diagnoses / Procedures Referred By Cristiane green Referred To Contact Radiology Diagnoses Left shoulder pain, unspecified chronicity Procedures MR Shoulder Left Without Contrast Asaf Hoang MD [address] [place] [address] Referral ID Status Reason Start Date Expiration Date V isits Requested Visits Authorized [id number] Pending Review 10/17/2021 10/17/2022 1 1 Referral ID Status Reason Start Date Expiration Date Visits Re quested Visits Authorized [id number] Closed 10/17/2021 10/17/2022 1 1 Specialty Diagnoses / Procedures Referred By Contac t Referred To Contact Radiology Diagnoses Left shoulder pain, unspecified chronicity Procedures MR Shoulder Left Without Contrast Asaf Hoang MD [address] [place] [address] [facility] [address] [place] [place] [address] Phone: [phone] Referral ID Status Reason Start Date Expiration Date V isits Requested Visits Authorized [id number] Authorized 10/17/2021 10/17/2022 1 1 Specialty Diagnoses / Procedures Referred By Contac t Referred To Contact Physical Therapy Diagnoses Traumatic tear of left rotator cuff, unspecified tear extent, initial encounter Asaf Hoang MD [address] [place] [address] Referral ID Status Reason Start Date Expiration Date Visits Requested Visits Authorized [id number] Authorized Patient Preference 12/01/2021 12/01/2022 1 1 Specialty Diagnoses / Procedures Referred By Contac t Referred To Contact Physical Therapy Diagnoses Traumatic tear of left rotator cuff, unspecified tear extent, initial encounter Asaf Hoang MD [address] [place] [address] [address] Phone: [phone] Referral ID Status Reason Start Date Expiration Date Visits Requested Visits Authorized [id number] Authorized Patient Preference 01/02/2022 01/02/2023 1 1 Specialty Diagnoses / Procedures Referred By Contac t Referred To Contact Physical Therapy Diagnoses Traumatic tear of left rotator cuff, unspecified tear extent, initial encounter Asaf Hoang MD [address] [place] [address] [facility] [address] [place] [address] Referral ID Status Reason Start Date Expiration Date Visits Requested Visits Authorized [id number] Authorized Patient Preference 02/28/2022 02/28/2023 1 1 Medications Administered Section Active Administered Medications - up to 3 most recent administrations Medication Order MAR Action Action Date Dose Rate Site fluorescein-benoxinate 0.25-0.4 % 1 Drop (FLURESS) 1 Drop, BOTH EYES, DIRECTED, Starting on Fatimah 12/15/21 at 0900, Until Sun12/15/21 at 2058, Administer for applanation tonometry. In the event of a Fluress shortage, administer [place]-Fluor 1 drop into both eyes as directed [...] 1 Drop, BOTH EYES, DIRECTED, Starting on [facility] 12/15/21 at 0900, Until Fatimah 12/15/21 at [...] DATE CREATED AUTHOR AUTHOR'S ORGANIZ ATION 02/27/2018 [facility] DATE CREATED AUTHOR AUTHOR'S ORGANIZ ATION 04/19/2019 [facility] DATE CREATED AUTHOR AUTHOR'S ORGANIZ ATION 12/19/2019 [facility] DATE CREATED AUTHOR AUTHOR'S ORGANIZ ATION 10/31/2021 [facility] DATE CREATED AUTHOR AUTHOR'S ORGANIZ ATION 11/25/2021 [facility] DATE CREATED AUTHOR AUTHOR'S ORGANIZ ATION 12/16/2021 [facility] DATE CREATED AUTHOR AUTHOR'S ORGANIZ ATION 02/09/2022 [facility] DATE CREATED AUTHOR AUTHOR'S ORGANIZ ATION 02/28/2022 [facility] DATE CREATED AUTHOR AUTHOR'S ORGANIZ ATION 07/30/2023 [facility] DATE CREATED AUTHOR AUTHOR'S ORGANIZ ATION 09/27/2023 [facility] DATE CREATED AUTHOR AUTHOR'S ORGANIZ ATION 10/04/2023 [facility] Reason for Visit (unrecogniz [...] Care Teams (unrecognized sec tion and content) [employer] Relationship Specialty Start Date End Date Miah Patino MD [address] [facility] [address] [place] [address] PCP - General Family Medicine 09/07/15 [employer] Relationship Specialty Start Date End Date Miah Patino MD [address] [facility] [address] [place], [place] [id number] PCP - General Family Medicine 09/07/15 [employer] Relationship Specialty Start Date End Date Miah Patino MD [address] [facility] [address] [place], [place] [id number] PCP - General Family Medicine 09/07/15 [employer] Relationship Specialty Start Date End Date Miah Patino MD [address] [facility] [address] [place], [place] [id number] PCP - General Family Medicine 09/07/15 [employer] Relationship Specialty Start Date End Date Miah Patino MD [address] [facility] [address] [place], [place] [phone] PCP - General Family Medicine 09/07/15 [employer] Relationship Specialty Start Date End Date No, Physician [facility] PCP - General 11/07/21 [employer] Relationship Specialty Start Date End Date No, Physician [facility] PCP - General 11/07/21 [employer] Relationship Specialty Start Date End Date No, Physician [facility] PCP - General 11/07/21 [employer] Relationship Specialty Start Date End Date Miah Patino MD PCP - General Family Practice 05/06/14 [employer] Relationship Specialty Start Date End Date Miah Trivedi MD [address] [facility] [address] [place] [address] PCP - General Endocrinology/Metabolism 12/30/21 [employer] Relationship Specialty Start Date End Date Miah Trivedi MD [address] [facility] [address] [place] [address] PCP - General Endocrinology/Metabolism 12/30/21 [employer] Relationship Specialty Start Date End Date Miah Trivedi MD [address] [facility] [address] [place] [address] PCP - General Endocrinology/Metabolism 12/30/21 [employer] Relationship Specialty Start Date End Date Miah Trivedi MD [address] [facility] [address] [place] [address] PCP - General Endocrinology/Metabolism 12/30/21 [employer] Relationship Specialty Start Date End Date Miah Trivedi MD [address] [place] [address] [address] [place], [place] [id number] PCP - General Endocrinology/Metabolism 12/30/21 [employer] Mechan[employer] Relationship Specialty Start Date End Date Miah Trivedi MD [address] [place] [address] [address] [place], [place] [id number] PCP - General Endocrinology/Metabolism 12/30/21 [employer] Mechanic Relationship Specialty Start Date End Date Miah Trivedi MD [address] [place] [address] [address] [place] [address] PCP - General Endocrinology/Metabolism 12/30/21 [employer] Mechanic Relationship Specialty Start Date End Date Miah Trivedi MD [address] [place] [id number] PCP - General Endocrinology/Metabolism 12/30/21 Source Comments (unrecognize d section and content) In the event this informatio n is protected by the Federal Confidentiality of Alcohol and Drug Abuse Patient Records regulations: The Federal rules restrict any use of the information to criminally investigate or prosecute any alcohol or drug abuse patient.[facility] <item><item> Privacy Markings (unrecogniz ed section and [...] BE BASED ON THE PRIMARY CLINICAL RECORDS. [employer] [facility]. provides no warranty or guarantee of the accuracy or completeness of information in this document.
[2023-10-18] MEDS: Atorvastatin Calcium 80 MG Tablet PO (21:16)
[2023-10-18 21:31] LABS: Partial Thromboplast Time 55.1 Seconds (24.1-36.2)
[2023-10-18] MEDS: Metoprolol Tartrate 25 MG Tablet 12.5 MG PO (22:55)
[2023-10-19] VITALS (10 sets, daily range): BP systolic 119–140; BP diastolic 70–93; PULSE 50–66; RESP 16–19; TEMP 36.1–36.8; O2SAT 95–99
[2023-10-19] MEDS: Lactated Ringers 1,000 ML 75 ML IV (00:52)
[2023-10-19 03:17] LABS: Absolute Lymphocyte Count 1.73 X10^3/uL (0.83-4.51); Absolute Neutrophil Count 7.2 X10^3/uL (2.0-7.7); Basophil# 0.06 X10^3/uL; Basophil% 0.6 % (0-1); Eosinophil# 0.42 X10^3/uL; Eosinophils% 4.1 % (0-5); Hematocrit 43.5 % (40-54); Hemoglobin 14.4 g/dL (13.0-16.5); Lymphocyte # 1.73 X10^3/ul (0.83-4.51); Lymphocyte % 16.8 % (19-41); Mean Corp Hgb Conc 33.1 g/dL (32-36); Mean Corpuscular Hgb 28.7 pg (27.0-32.0); Mean Corpuscular Volume 86.7 fL (80-94); Mean Platelet Vol. 9.3 fl (6.2-12.0); Monocyte# 0.81 X10^3/uL; Monocyte% 7.9 % (0-10); NRBC Flagged by Analyzer 0 % (0-5); Neutrophil # 7.21 X10^3/uL (2.7-7.7); Neutrophil % 70.2 % (47-70); Platelet Count 252 K/mm3 (150-450); RBC Distribution Width CV 12.9 % (11.6-14.6); RBC Distribution Width SD 40.3 fl (35.1-43.9); Red Blood Count 5.02 M/mm3 (4.6-6.2); White Blood Count 10.3 K/mm3 (4.4-11.0)
[2023-10-19 03:34] LABS: Partial Thromboplast Time 56.9 Seconds (24.1-36.2)
[2023-10-19 03:41] LABS: ALB/GLOB Ratio 1.2 RATIO (0.9-2.4); AST(SGOT) 15 U/L (15-37); Alanine Aminotransfer ALT/SGPT 29 U/L (16-61); Albumin, Serum 3.3 g/dL (3.2-5.0); Alkaline Phosphatase 52 U/L (45-117); Anion Gap 4 (5-15); BUN 17 mg/dL (7-18); BUN/Creat Ratio 19.5 RATIO (10-20); Calcium,Total 8.5 mg/dL (8.5-10.1); Chloride 110 mmol/L (98-107); Cholesterol 122 mg/dL (200); Creatinine, Serum 0.87 mg/dL (0.70-1.30); EST Glomerular Filtration Rate 94 mL/min (>60); Est Glom Filt Rate - Afr Amer 114 mL/min (>60); Estimated Creatinine Clearance 94.15 ml/min; Globulin 2.8 g/dL (2.2-4.2); Glucose 107 mg/dL (74-106); High Density Lipoprotein 46 mg/dL; Phosphorus 2.9 mg/dL (2.5-4.9); Potassium 3.9 mmol/L (3.5-5.1); Protein, Total 6.1 g/dL (6.4-8.2); Sodium Level 140 mmol/L (136-145); Thyroid Stim Hormone (TSH) 0.51 uIU/mL (0.358-3.74); Triglycerides 59 mg/dL; Very Low Density Lipoprotein 12 mg/dL (5-40)
--- NOTE | 2023-10-19 05:55 | EKG12_ITS ---
Test Reason : AM EKG Blood Pressure : / mmHG Vent. Rate : 049 BPM Atrial Rate : 049 BPM P-R Int : 194 ms QRS Dur : 094 ms QT Int : 434 ms P-R-T Axes : 017 008 052 degrees QTc Int : 392 ms Sinus bradycardia Otherwise normal ECG RSR' V1 When compared with ECG of 18-OCT-2023 12:36, MANUAL COMPARISON REQUIRED, DATA IS UNCONFIRMED Confirmed by Richard Hogan ([id number]), metropolitan editor CHAPITO RUIZ ([id number]) on 10/19/2023 9:51:35 AM Referred By: Confirmed By:Richard Hogan
--- NOTE | 2023-10-19 05:55 | ECHOD_ITS ---
Reason For Study: Chest pain Procedure This was a 2D Doppler, Color Flow transthoracic echocardiogram. Exam performed portable in patient room. Left Ventricle Normal LV size. The estimated ejection fraction is 65 %. No evidence for diastolic dysfunction. No regional wall motion abnormalities noted. Right Ventricle Normal RV size. Normal systolic function. Atria Normal left atrium. Normal right atrium. No doppler evidence for ASD. Mitral Valve There is no mitral valve stenosis. Trivial mitral valve insufficiency. Tricuspid Valve There is no tricuspid stenosis. Mild tricuspid valve insufficiency. Pulmonary artery systolic pressure is 35 mmHg. Aortic Valve Trisinus/trileaflet aortic valve. There is no aortic stenosis. Severe (4+) aortic valve insufficiency. Pulmonic Valve There is no pulmonic valvular stenosis. Trivial pulmonic valve insufficiency. Great Vessels Severely dilated aortic root. Severely dilated ascending aorta. Pericardium/Pleural No pericardial effusion. MMode/2D Measurements & Calculations LVIDd: 4.9 cm IVSd: 1.2 cm LVOT diam: 2.2 cm LVIDs: 4.0 cm LVPWd: 0.97 cm LVOT area: 3.7 cm2 RVDd: 3.9 cm FS: 17.8 % Ao root diam: 5.6 cm LAV(MOD-bp): 69.1 ml LVAd ap4: 42.9 cm2 LAV(MOD-bp) Indexed: 32.6 ml/m2 LVLd ap4: 9.3 cm LAV(MOD-sp2): 78.6 ml EDV(MOD-sp4): 162.1 ml LAV(MOD-sp4): 54.8 ml EDV(sp4-el): 168.4 ml LVAs ap4: 28.1 cm2 LVLs ap4: 8.4 cm ESV(MOD-sp4): 78.1 ml ESV(sp4-el): 79.6 ml EF(MOD-sp4): 51.8 % EF(sp4-el): 52.7 % LVAd ap2: 43.3 cm2 SV(MOD-sp4): 84.0 ml SV(MOD-sp2): 86.0 ml LVLd ap2: 10.0 cm EDV(MOD-sp2): 156.6 ml EDV(sp2-el): 158.9 ml LVAs ap2: 27.5 cm2 LVLs ap2: 8.8 cm ESV(MOD-sp2): 70.5 ml ESV(sp2-el): 72.9 ml EF(MOD-sp2): 55.0 % SV(sp4-el): 88.8 ml LA dimension(2D): 3.1 cm LA A4 area: 19.7 cm2 RA A4 area: 20.8 cm2 TAPSE: 2.0 cm Doppler Measurements & Calculations MV E max torsten: 50.5 cm/sec Lat Peak E' Torsten: 8.3 cm/sec Med Peak E' Torsten: 8.2 cm/sec MV A max torsten: 31.7 cm/sec E/E' lat: 6.1 E/E' med: 6.2 MV E/A: 1.6 Ao V2 max: 117.1 cm/sec AI max torsten: 451.0 cm/sec LV V1 max: 102.8 cm/sec Ao max P.5 mmHg AI max P.4 mmHg LV V1 max P.2 mmHg Ao V2 mean: 88.0 cm/sec AI dec slope: 283.4 cm/sec2 LV V1 mean P.6 mmHg Ao mean P.3 mmHg AI P1/2t: 466.2 msec LV V1 mean: 75.6 cm/sec Ao V2 VTI: 27.8 cm LV V1 VTI: 26.5 cm AV (velocity ratio): 0.95 RIZWANA(I,D): 3.5 cm2 RIZWANA(V,D): 3.2 cm2 SV(LVOT): 97.5 ml PA V2 max: 61.5 cm/sec TR max torsten: 268.6 cm/sec TR max P.9 mmHg ECHO/Echo Complete Interpretation Summary The estimated ejection fraction is 65 %. No evidence for diastolic dysfunction. Trivial mitral valve insufficiency. Mild tricuspid valve insufficiency. Severe (4+) aortic valve insufficiency. Severely dilated aortic root. Severely dilated ascending aorta. Ordering Physician: Nora Rivera Referring Physician: Chilango Welsh Performed By: Eli Mendez RDCS
[2023-10-19] MEDS: TICAGRELOR 90 MG TABLET PO ×2 (06:05→20:46)
[2023-10-19] MEDS: Aspirin E.C. 81 MG Tablet PO (06:05)
--- NOTE | 2023-10-19 07:45 | PN.CARD_ITS ---
Subjective Subjective Patient is resting comfortably recumbent position in bed. He denies any recurrence of his left shoulder discomfort. He reports that he rested fairly well. Telemetry showed his heart rate with the Lopressor dropped into the 45 to 50 bpm range. A preliminary look at the echo which was being done at the bedside revealed a dilated aorta measuring approximately 5 cm and at least 2+ aortic insufficiency. This will need to be further evaluated pending the results of the diagnostic catheterization. His enzymes were essentially unchanged and around 135. Objective Data Vital Signs: Vital Signs Temp Pulse Resp BP Pulse Ox O2 Del Method 97.5 F L 50 L 18 127/87 H 95 Room Air 10/19/23 06:12 10/19/23 07:27 10/19/23 06:12 10/19/23 06:12 10/19/23 06:12 10/19/23 06:12 Oxygen Delivery Method Room Air Weight: 198 lb 13.711 oz Body Mass Index (BMI) 26.9 Intake & Output: Intake and Output for Last 24 Hours 10/17/23 10/18/23 10/19/23 23:59 23:59 23:59 Intake Total 88.5 / 338.5 347.17 / 347.17 Balance 88.5 / 338.5 347.17 / 347.17 Lab / Micro Data Attestation: I reviewed the patient's lab results. 10/19/23 03:09 10/19/23 03:09 Labs: Laboratory Results - last 24 hr 10/18/23 12:53: WBC 9.6, RBC 5.32, Hgb 15.6, Hct 46.3, MCV 87.0, MCH 29.3, MCHC 33.7, RDW Std Deviation 40.3, RDW Coeff of Edwardo 12.9, Plt Count 283, MPV 9.8, Immature Gran % (Auto) 0.300, Neut % (Auto) 74.2 H, Lymph % (Auto) 14.4 L, Hamilton % (Auto) 7.9, Eos % (Auto) 2.6, Baso % (Auto) 0.6, Absolute Neuts (auto) 7.1, Absolute Lymphs (auto) 1.38, Nucleated RBC % 0, PT 14.2, INR 1.1, APTT 27.4, D- Dimer Quant (PE/DVT) 0.34, Sodium 144, Potassium 3.9, Chloride 113 H, Carbon Dioxide 27.0, Anion Gap 4 L, BUN 19 H, Creatinine 0.98, Estim Creat Clear Calc 83.58, Est GFR (MDRD) Af Amer 99, Est GFR (MDRD) Non-Af 82, BUN/Creatinine Ratio 19.3, Glucose 120 H, Hemoglobin A1c 5.5, Calcium 8.8, Troponin I High Sens 136 H* 10/18/23 15:59: Troponin I High Sens 132 H* 10/18/23 16:33: APTT 95.2 H* 10/18/23 18:43: Troponin I High Sens 136 H* 10/18/23 21:06: APTT 55.1 H 10/19/23 03:09: WBC 10.3, RBC 5.02, Hgb 14.4, Hct 43.5, MCV 86.7, MCH 28.7, MCHC 33.1, RDW Std Deviation 40.3, RDW Coeff of Edwardo 12.9, Plt Count 252, MPV 9.3, Immature Gran % (Auto) 0.400, Neut % (Auto) 70.2 H, Lymph % (Auto) 16.8 L, Hamilton % (Auto) 7.9, Eos % (Auto) 4.1, Baso % (Auto) 0.6, Absolute Neuts (auto) 7.2, Absolute Lymphs (auto) 1.73, Nucleated RBC % 0, APTT 56.9 H, Sodium 140, Potassium 3.9, Chloride 110 H, Carbon Dioxide 26.0, Anion Gap 4 L, BUN 17, Creatinine 0.87, Estim Creat Clear Calc 94.15, Est GFR (MDRD) Af Amer 114, Est GFR (MDRD) Non-Af 94, BUN/Creatinine Ratio 19.5, Glucose 107 H, Calcium 8.5, Phosphorus 2.9, Magnesium 2.0, Total Bilirubin 0.90, AST 15, ALT 29, Alkaline Phosphatase 52, Total Protein 6.1 L, Albumin 3.3, Globulin 2.8, Albumin/Globulin Ratio 1.2, Triglycerides 59, Cholesterol 122, LDL Cholesterol 64, VLDL Cholesterol 12, HDL Cholesterol 46, TSH 0.51 Rhythm Strip Rhythm Strip: Sinus Rhythm Rate: 55 Cardiology Labs/Tests 10/18/23 12:53: WBC 9.6, RBC 5.32, Hgb 15.6, Hct 46.3, MCV 87.0, MCH 29.3, MCHC 33.7, Plt Count 283, MPV 9.8, Immature Gran % (Auto) 0.300, Neut % (Auto) 74.2 H , Lymph % (Auto) 14.4 L, Hamilton % (Auto) 7.9, Eos % (Auto) 2.6, Baso % (Auto) 0.6, Absolute Neuts (auto) 7.1, Nucleated RBC % 0, PT 14.2, INR 1.1, APTT 27.4, D- Dimer Quant (PE/DVT) 0.34, Sodium 144, Potassium 3.9, Chloride 113 H, Carbon Dioxide 27.0, Anion Gap 4 L, BUN 19 H, Creatinine 0.98, Est GFR (MDRD) Af Amer 99, Est GFR (MDRD) Non-Af 82, BUN/Creatinine Ratio 19.3, Glucose 120 H, Hemoglobin A1c 5.5, Calcium 8.8 10/18/23 16:33: APTT 95.2 H* 10/18/23 21:06: APTT 55.1 H 10/19/23 03:09: WBC 10.3, RBC 5.02, Hgb 14.4, Hct 43.5, MCV 86.7, MCH 28.7, MCHC 33.1, Plt Count 252, MPV 9.3, Immature Gran % (Auto) 0.400, Neut % (Auto) 70.2 H , Lymph % (Auto) 16.8 L, Hamilton % (Auto) 7.9, Eos % (Auto) 4.1, Baso % (Auto) 0.6, Absolute Neuts (auto) 7.2, Nucleated RBC % 0, APTT 56.9 H, Sodium 140, Potassium 3.9, Chloride 110 H, Carbon Dioxide 26.0, Anion Gap 4 L, BUN 17, Creatinine 0.87, Est GFR (MDRD) Af Amer 114, Est GFR (MDRD) Non-Af 94, BUN/Creatinine Ratio 19.5, Glucose 107 H, Calcium 8.5, Phosphorus 2.9, Magnesium 2.0, Total Bilirubin 0.90, Triglycerides 59, Cholesterol 122, LDL Cholesterol 64, VLDL Cholesterol 12, HDL Cholesterol 46 Rhythm: EKG: ECHO: Stress Test: Cardiac Cath: PCI: CT Surgery: Holter monitor: EPS: PPM: CXR: Chest CT Scan: Physical Exam Const oriented x3 HEENT normocephalic Neck no JVD Chest inspection of chest normal Resp normal respiratory effort and clear to auscultation bilaterally Cardio Rate: bradycardia Rhythm: regular rhythm Heart Sounds: S1 normal, S2 normal and murmur diastolic II/ blowing holo left sternal border; Negative for click or gallop GI normal to inspection, nondistended, normoactive bowel sounds Extremity no pedal edema Skin no rashes or lesions noted Neuro Neuro Narrative: Alert and oriented x 3 Psych mental status grossly normal Assessment & Plan Assessment/Plan (1) Non-ST elevated myocardial infarction: PLAN: The patient's enzymes essentially remained unchanged on the delta troponin. He has had no recurrence of his left shoulder discomfort. The patient is scheduled for left heart catheterization at 10 AM today. His heart rate was down in the 45 bpm range last evening after 12.5 mg of Lopressor. Blood pressure is adequately controlled at 125 systolic. (2) Aortic valve regurgitation: QUALIFIERS: Cardiac valve disease etiology: nonrheumatic Quali fied Code(s): I35.1 - Nonrheumatic aortic (valve) insufficiency PLAN: The quick look at the echocardiogram pulmonary only shows aortic valve to have at least 2+ aortic insufficiency and the aorta is 5 cm measurement in diameter. The patient has no prior history of hypertension there is no family history of Marfan's he is 6 feet tall and thin and does have a history of some issues with visual changes that were corrected by cataract removal in his 20s. He denies any issues with the lens in the eye but this raises a suspicion for Marfan's. Further evaluation with CT angiography will be performed after the diagnostic catheterization is obtained. Will then refer him for evaluation by CT surgery. PLAN: Plan 1. Left heart catheterization today. 2. Obtain formal echo report. 3. Pending outcome of the catheterization will reevaluate the aorta. Would schedule CT angiography either later today or within the next few days. Charges/Coding Visit Charges Inpatient E&M: 70104 Subs Hosp L3
--- NOTE | 2023-10-19 09:30 | CASEMGMT ---
RN CM Face to Face with patient for initial transition planning/care coordination assessment. RN CM introduced self and role at [facility]. Patient lying in bed, alert and oriented, sons at bedside. Patient willing to participate in assessment and is able to answer all questions appropriately. Care providers, pharmacy, and demographics verified. Patient wishes to discharge home, denies need for home health at this time. Patient states he has no further needs or concerns at this time. CM to follow for discharge planning needs that may arise. PCP: Blaise Specialists: none Preferred Pharmacy: [facility] Insurance: [employer] Prescription Benefit: yes Living Will/HPOA: yes, sons Napoleon and Ritchie LNOK: sons Living Arrangements: Patient lives with mother in a single story home with 5 steps to enter the home. Patient is independent at home. Transportation: self, sons DME/HHC: Patient has raised toilet and shower chair at home. No previous HHC or SNF. Disposition Plan: Patient to discharge home with family support and follow up plans in place. Eugenia EPPS, RN, CM
[2023-10-19 10:00] LABS: Partial Thromboplast Time 53.7 Seconds (24.1-36.2)
--- NOTE | 2023-10-19 10:21 | NURSING ---
report called to laborer/key man, heparin gtt stopped
[2023-10-19] MEDS: 0.9% Normal Saline (1000mL) 1,000 ML 100 ML IV (12:30)
--- NOTE | 2023-10-19 13:47 | CASEMGMT ---
Insurance review for hospitals In-network with [facility] insurance if transfer is recommended is as follows:?[facility], [facility], [facility], [facility], [facility]), [facility], [facility] and . Shanthi Aguilar, Discharge Planning Asst.
--- NOTE | 2023-10-19 15:15 | CL.D_ITS ---
Patient Name: AFSANEH NOVAK Study Date: 10/19/2023 Performing: Yobany Gutierrez MD Ht: 72 inches 182.88 cm : 1960 Wt: 198.86 lbs 90.2 kg Age: 63 Gender: male BSA: 2.13 PROCEDURE(S) PERFORMED [id number]-([id number])[facility] CLINICAL PROFILE AND INDICATIONS Indications: ACS <= 24 hrs Heart Failure: None CONCLUSIONS CAD as described. Aortic root appears to be severely dilated RECOMMENDATIONS DESCRIPTION OF PROCEDURE The patient arrived to the procedure lab. The risks and benefits of the procedure as well as a full description of our services here and current unavailability of surgical backup were fully explained to the patient and/or their significant other prior to the catheterization. The Timeout was completed, verifying the correct patient and procedure. The patient's procedural site was prepped and draped in the usual fashion. Local anesthetic was given subcutaneously to right radial region with Lidocaine 2%. Using a modified Seldinger technique, arterial access was obtained via the right radial artery, a 6Fr sheath was inserted. Left Coronary Artery selective angiography was performed in multiple views using a 5 Fr. JL4 catheter. Right Coronary Artery selective angiography was then performed in multiple views using a 5 Fr. 3DRC (Eric) catheter.The arterial sheath was pulled and a TR Band was applied for hemostasis 10 ml of air CORONARY ANGIOGRAPHY DOMINANCE: Right Dominant LEFT MAIN: Mild luminal irregularities LEFT ANTERIOR DESCENDING ARTERY: PROX LAD: 70 % Stenosis DIAGONAL 1: This is a large branching vessel that has about a 50% stenosis in the proximal portion. It trifurcates after this and 2 out of the 3 branches have 80% stenoses in the proximal portion CIRCUMFLEX ARTERY: 40% stenosis in the proximal portion. Circumflex is a small vessel RIGHT CORONARY ARTERY: Mild diffuse disease AORTIC ROOT: Dilated COMPLICATIONS No Complications PROCEDURE MEDICATIONS Fentanyl 50 mcg IV Versed 1 mg IV Oxygen: 2 L/min via nasal cannula Heparin given IA 10/19/2023 10:41:30 Verapamil 2.5mg, Ntg 100mcgs, 3000 units of Heparin given IA 10/19/2023 10:41:30 SUMMARY OF HEMODYNAMIC DATA Time AIR REST ECG 10:20:57 AO 109/68 (87) SA 10:48:16 AO 111/67 (88) 10:49:54 Signed By Yobany Gutierrez MD On 10/22/2023 08:47:27 Yobany Gutierrez MD
[2023-10-19] MEDS: HEPARIN/D5w 25,000 UNITS 25,000 UNITS/250 ML IV.SOLN. 10 UNITS CONT INF (16:51)
--- NOTE | 2023-10-19 17:03 | PCM.PN.HOSP ---
Reason for Visit Reason for Visit: Diagnoses Non-ST elevation (NSTEMI) myocardial infarction (10/18/23) Nonrheumatic aortic (valve) insufficiency (10/18/23) Hyperglycemia, unspecified (10/18/23) Objective Data Objective Data Vital Signs: Vital Signs Temp Pulse Resp BP Pulse Ox O2 Del Method 97 F L 58 L 16 140/84 H 98 Room Air 10/19/23 11:53 10/19/23 13:00 10/19/23 13:00 10/19/23 13:00 10/19/23 13:00 10/19/23 13:00 Oxygen Delivery Method Room Air Weight: 198 lb 13.711 oz Body Mass Index (BMI) 26.9 Intake & Output: Intake and Output for Last 24 Hours 10/18/23 10/19/23 10/20/23 03:59 03:59 03:59 Intake Total 338.5 / 338.5 916.75 / 916.75 Balance 338.5 / 338.5 916.75 / 916.75 Lab / Micro Data 10/19/23 03:09 10/19/23 03:09 Labs: Laboratory Results - last 24 hr 10/18/23 16:33: APTT 95.2 H* 10/18/23 18:43: Troponin I High Sens 136 H* 10/18/23 21:06: APTT 55.1 H 10/19/23 03:09: WBC 10.3, RBC 5.02, Hgb 14.4, Hct 43.5, MCV 86.7, MCH 28.7, MCHC 33.1, RDW Std Deviation 40.3, RDW Coeff of Edwardo 12.9, Plt Count 252, MPV 9.3, Immature Gran % (Auto) 0.400, Neut % (Auto) 70.2 H, Lymph % (Auto) 16.8 L, Morrow % (Auto) 7.9, Eos % (Auto) 4.1, Baso % (Auto) 0.6, Absolute Neuts (auto) 7.2, Absolute Lymphs (auto) 1.73, Nucleated RBC % 0, APTT 56.9 H, Sodium 140, Potassium 3.9, Chloride 110 H, Carbon Dioxide 26.0, Anion Gap 4 L, BUN 17, Creatinine 0.87, Estim Creat Clear Calc 94.15, Est GFR (MDRD) Af Amer 114, Est GFR (MDRD) Non-Af 94, BUN/Creatinine Ratio 19.5, Glucose 107 H, Calcium 8.5, Phosphorus 2.9, Magnesium 2.0, Total Bilirubin 0.90, AST 15, ALT 29, Alkaline Phosphatase 52, Total Protein 6.1 L, Albumin 3.3, Globulin 2.8, Albumin/Globulin Ratio 1.2, Triglycerides 59, Cholesterol 122, LDL Cholesterol 64, VLDL Cholesterol 12, HDL Cholesterol 46, TSH 0.51 10/19/23 09:03: APTT 53.7 H Radiography Diagnostic Testing: Radiology Impression Echocardiogram 10/19/23 05:55 Interpretation Summary The estimated ejection fraction is 65 %. No evidence for diastolic dysfunction. Trivial mitral valve insufficiency. Mild tricuspid valve insufficiency. Severe (4+) aortic valve insufficiency. Severely dilated aortic root. Severely dilated ascending aorta. Ordering Physician: Nora Rivera Referring Physician: Chilango Welsh Performed By: Eli Menedz RDCS Rhythm Strip Rhythm Strip: Sinus Rhythm Rate: 55 Ectopy: PVC(s)
--- NOTE | 2023-10-19 17:43 | NURSING ---
report called to [facility] RN, vegetable picker [phone]
[2023-10-19] MEDS: Atorvastatin Calcium 80 MG Tablet PO (20:46)
[2023-10-19] MEDS: Metoprolol Tartrate 25 MG Tablet 12.5 MG PO (20:47)
--- NOTE | 2023-10-20 00:31 | NURSING ---
report given to ambulette service. pt. left with ambulette service to go to [facility] @ approx. [phone].
--- NOTE | 2023-10-20 16:10 | PCM.DC.SUM ---
Providers Date of Admission: 10/18/23 Date of Discharge: 10/19/23 Primary Care Physician: Dr. Chilango Welsh MD Consultations 10/18/23 15:33 Consult: Cardiology Routine Consulting Provider: Alfred Gutierrez Reason for Consult: Chest Pain EMERGENT Consult: No MD Notified: Yes Date Notified: 10/18/23 Time Notified: 14:26 Method of Notification: ED Physician Initiated Reason For Visit: NSTEMI Diagnosis Discharge Diagnosis (1) Non-ST elevated myocardial infarction: Status: Acute Code(s): I21.4 - Non-ST elevation (NSTEMI) myocardial infarction (2) Aortic valve regurgitation: Status: Acute Code(s): I35.1 - Nonrheumatic aortic (valve) insufficiency Qualifiers: Cardiac valve disease etiology: nonrheumatic Qualified Code(s): I35.1 - Nonrheumatic aortic (valve) insufficiency Medications at Discharge Home Medications NK 08/12/20 Hospital Course Operations None Procedures 2-D Echocardiogram and Cardiac catheterization Summary of Care Provided Minutes Spent on Discharge: 33 Hospital Course: Per HPI: AFSANEH NOVAK, is a 63 M who presented to the emergency department at [facility] on 10/18/2023 due to chest pain. 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 He noted that his symptoms resolved when he stopped running. 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 On Sunday he left the game as he was having exertional chest pain and dyspnea with no other associated symptoms such as diaphoresis or nausea vomiting. He does have a strong family history of cardiac disease on his maternal side but none before age 55. He has no specific cardiac risk factors and he takes no chronic medications at home. He does not smoke. 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 On presentation his temperature was 97.3, heart rate was 70, initial blood pressure was 144/61 with repeat at 117/82, respiratory rate has been anywhere between 18 and 27 and oxygen saturations are 97% on room air. His CBC is unremarkable other than mild left shift with a 74.2% neutrophilia. His chemistry panel was essentially unremarkable other than hyperglycemia with a blood sugar of 120. He does not have a known history of diabetes and this is nonfasting. His initial troponin was 136. EKG showed normal sinus rhythm with normal intervals and no ST-T wave changes concerning for acute ischemia. He did have a PVC. Case was discussed with cardiology given troponin elevation and he was started on heparin drip and loaded with Brilinta. He also received a full dose aspirin emergency department. Plan is for cardiac catheterization tomorrow. Hospital Course: 1. Non-STEMI with dilated aortic root?63-year-old male presented to the hospital with chest pain with activity. 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 He was started on a heparin drip and placed on a beta-jaime on admission, an echo was performed that did not show any wall motion abnormality but it did show 5.6 cm aortic root dilatation with severe aortic valve insufficiency. Heart cath demonstrated proximal LAD 70% stenosis in the first diagonal branch has about a 50% stenosis but after this blockage it trifurcates with 2 out of the 3 vessels having an 80% stenosis and then the circumflex artery has a 40% stenosis in the proximal portion therefore cardiology felt that given his aortic root and his aortic valve insufficiency and these coronary artery findings that he should be transferred to a tertiary center. Cardiology assisted in setting up this transfer and he was discharged to [facility]. Physical Exam Narrative General: Alert, Oriented x3, Cooperative, No apparent distress HEENT: Atraumatic, PERRLA, EOMI, Normocephalic Oral: Moist Mucosa Neck: Supple, No JVD Lungs: Diminished, Normal air movement, No rhonchi, No wheeze, No rales Cardiovascular: Regular rate, Regular Rhythm, Normal S1, Normal S2, diastolic murmur Abdomen: Soft, Non Tender, Non-Distended, No Hepato-splenomegaly Extremities: No edema, Capillary Refill Less than 3 Seconds Skin: No rashes, No breakdown Musculoskeletal: No Tenderness to Palpation of Joints or Extremities Neurological: No focal neurological deficits, Motor Exam 5/5 strength throughout, Sensory exam intact to light touch and pain Psych/Mental Status: Normal Affect, Appropriate Weight / BMI Weight Weight: 198 lb 13.711 oz Body Mass Index (BMI) 26.9 ABG / Lab / Microbiology Data 10/19/23 03:09 10/19/23 03:09 Meaningful Use Info Meaningful Use Diagnoses (Choose all that apply): None applicable Discharge Plan Admission Admit Date/Time: 10/18/23 14:25 Attending Provider: Osimn Estrella Primary Care Provider: Chilango Welsh Consulting Providers: Alfred Gutierrez; Nora Rivera Discharge Orders/Prescriptions Prescriptions: No Action NK Referrals / Follow Up: Chilango Welsh MD [Primary Care Provider] - Disposition Disposition (needs filled in before D/C Order can be placed): Acute Care Hospital Charges/Coding Visit Charges Inpatient E&M: 58660 Disch Hosp >30min
== END 2023-10-19 22:00 | disposition short-term general hospital (02) | DRG 282 ==
LOC: ED 14:15 → PCU 14:44
PROVIDERS: Admitting Provider Internal Medicine; Emergency Provider Emergency Medicine; PCP Family Medicine; Visit Provider Family Medicine
DX: I21.4 Non-ST elevation (NSTEMI) myocardial infarction (principal); I25.10 Atherosclerotic heart disease of native coronary artery without angina pectoris; I77.819 Aortic ectasia, unspecified site; I35.1 Nonrheumatic aortic (valve) insufficiency; I49.3 Ventricular premature depolarization; R73.9 Hyperglycemia, unspecified
CPT/HCPCS: 36415; 80048; 80053; 80061; 83036; 83735; 84100; 84443; 84484; 85025; 85379; 85610; 85730; 93005; 93306; 93454; 94668; 97802; 99152; 99153; 99284; J7030; J7040; J7120; A4216; C1769; C1894; Q9967

== ENCOUNTER → 2023-12-21 | Outpatient (CLI) | payer OTHER, SELFPAY ==
--- NOTE | 2023-12-21 07:58 | PCM.CR.HP2 ---
CR - History & Physical General Arrival date:: 12/21/23 Arrival time:: 07:58 Date of Referral:: 12/03/23 Date of CR Evaluation:: 12/21/23 Referring Physician: Dr. Richard Hogan Primary Diagnosis: Valve sparing aortic root/ascending aorta/ebony arch replacement/AV repair History of Present Cardiac Event Onset Date Heart valve replacement or repair:: Yes (onset 11/13/23 Valve sparing aortic root/ascending aorta/ebony arch replaceme) Medications Ambulatory Orders Medication Instructions Recorded rosuvastatin 20 mg tablet 20 mg PO DAILY 11/22/23 aspirin 81 mg tablet,delayed 81 mg PO DAILY 11/23/23 release ascorbic acid (vitamin C) 500 mg mg PO DAILY 12/03/23 capsule cholecalciferol (vitamin D3) 250 250 mcg PO DAILY 12/03/23 mcg (10,000 unit) capsule multivitamin 1 tab PO DAILY 12/03/23 Allergies Allergies No Known Allergies Allergy (Verified 12/03/23 13:29) Sleep Disorder Evaluation Hx of Sleep Apnea: No Do you snore loudly (louder than talking or can be heard through closed doors)?: No Do you often feel tired/ fatigued/ sleepy during daytime?: No Has anyone observed you stop breathing during sleep?: No History of Hypertension (for STOP score): Yes STOP Results: Negative Advanced Directives Advanced Directives Power of 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: 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 Living Will: Yes Advance Directives Information Provided: Yes Advance Directives on File: No DNR Order?:: No Past Medical History Covid-19 Screening Physicial Symptoms Other Clinical Concerns Exposure Risk Pertinent Comorbidities Has a serious heart condition:: Yes Past Medical Illness Medical History Aortic root dilatation Aortic valve regurgitation Ascending aortic aneurysm Coronary artery disease Eye problem Hyperlipidemia Hypertension Moderate to severe aortic insufficiency Past Surgical History Surgical History History of aortic arch replacement (11/13/23) History of aortic root repair (11/13/23) History of aortic valve repair (11/13/23) History of arthroscopy of left knee History of arthroscopy of left shoulder History of ascending aortic replacement (11/13/23) History of cardiac catheterization Family History Summary Family History Other CAD (coronary artery disease) Heart disease Hypertension Social History Smoking History Smoking Status: Never smoker Alcohol Use Alcohol Usage: No Occupation Occupation (List type of work in comments):: Employed Hours worked per day:: 10 Hobbies, Recreation, Social Activities Hobbies: Sports Recreational Activities: I am able to engage in most, but not all activities Social Environment Status Marital Status: Current Living Arrangements Living Environment:: Alone Children How many children do you have?: 2 Do any of your children live nearby?: Yes Safety Do you feel safe in your surroundings?: Yes Assistance Do you need any assistance at home?: no Review of Systems Review of Systems Hints Review of Present Symptoms: Reports Shortness of Breath with Exertion, Appetite - Normal, Appetite - Special Diet and Sleep - Normal; Denies Shortness of Breath at Rest, PVD, Operative Discomfort, Angina, Wound Healing, Dizziness/Lightheadedness, Fatigue, Heart Arrhythmia/Irregularities or Sexual Changes Pain Is Patient Pain Free?: Yes Risk Factor Assessment Chief Complaint Chief Complaint: Valve sparing aortic root/ascending aorta/ebony arch replacement/AV repair Vital Signs Pulse Ox: 95 Blood Pressure: 127/87 Pulse Pulse Rate: 50 Hypertension Blood Pressure Sitting - Right Arm: 127/87 Stress Stress: Work-related Obesity Height: 6 ft Weight:: 199 lb Weight in Pounds: 199.0 lbs Body Mass Index (BMI): 26.9 Nutritional Referral for Obesity: No Physical Inactivity Physical Inactivity: Reg Exercise 30 min/day Risk Stratification Risk Guidelines: Moderate Risk: Risk Factor for Smoking, Risk Factor for Diabetes, Risk Factor for Obesity, Risk Factor for Sedentary Lifestyle and Risk Factor for Depression and Highest Risk: Risk Factor for Dyslipidemia and Risk Factor for Hypertension For Smoking Smoking Risk Guidelines For Dyslipidemia Dyslipidemia Risk Guidelines For Diabetes Mellitus Diabetes Risk Guidelines For Obesity/Overweight Obesity/Overweight Risk Guidelines For Hypertension Hypertension Risk Guidelines For Sedentary Lifestyle Sedentary Lifestyle Risk Guidelines For Depression Depression Risk Guidelines Family History Family History Other CAD (coronary artery disease) Heart disease Hypertension Motivation Motivation to Participate On a scale of 1 to 10, how prepared are you to commit to attending program?: 10 What do you see as barriers to successfully being able to complete the program?: nothing What do you see as the benefits of succesfully completing the program? In other words, what do you hope to get out of participating in the program?: back in shape Are there issues you are dealing with that will interfere with completing the program?: no Do you have a spouse or signficant other, family or friends who will help support you to complete the program?: yes
[2023-12-21 08:03] VITALS: BP 127/87; PULSE 50; O2SAT 95
--- NOTE | 2023-12-21 08:04 | CR.ITP_ITS ---
Diagnosis General Information Admitting Diagnosis: Valve sparing aortic root/ascending aorta/ebony arch replacement/AV repair Personal Learning Style:: Audio/Visual Stage of change r/t lifestyle modifications:: Contemplation Gave educational material for:: Treating Heart Disease, How The Heart Works, What it means to have Heart Disease, How Coronary Artery Disease is Diagnosed, Heart Procedures, What Heart Medications Do, Risk Factors & Modifications, Living an Active Life, Nutrition, Emotions & Heart Disease, Stress Management & Relaxation and Sleep Disorders & Heart Disease Education/Goals Cardiac Rehabilitation Goals Personal Goals: Initial Assessment: Improve energy level, Participate in home exercise program, Get back to work, or to resume activities faster, Improve muscle strength and endurance, Improve diet and eating habits (eat healthier) and Control risk factors (learn risk factor modification) Scale for measuring improvement of personal goals Diagnosis & Disease Process Outcomes/Goals: Pt IDs own risk factors & lifestyle modifications by Session 10, Verbalizes symptoms of angina & response by session 3., Pt independently manages and Other Additional Outcomes/Goals: Plan/Interventions: Assist Pt to ID & engage in lifestyle modification to reduce CVD risk, Instruct on individual risk factors, Review symptoms of angina & emergency actions, Review secondary diagnosis & identify educational needs. and Other see comment 30 day Reassessments:: Not Met 30 day Reassessments:: Not Met 30 day Reassessments:: Not Met 30 day Reassessments:: Not Met Final Reassessments:: Not Met Safety Referral to Physical Therapy: No Referral to [facility] Case Management: No Fall Risk Assessed:: Yes Assistive Devices:: None Exercise - Initial Assessment Visit Date of Eval: 12/21/23 (initial eval ) Mets: Pre-: >3 METS for 30 minutes by discharge, >5 METS for 30 minutes by discharge, >7 METS for 30 minutes by discharge and Unable to meet goal due to: (see comment below) Physician Prescribed Exercise Modalities: Treadmill, Rower, Airdyne, NuStep, SciFit and Lateral Submarine Operator Frequency: 2x/week for 18 weeks [36 sessions] and 3x/week for 12 weeks [36 sessions] Intensity: 60-80% of age predicted maximum heart rate reserve Duration: 30 - 45 minutes Current METSs:: 3 Target Heart Rate:: 101-117 Resting Blood Pressure: 127/87 EKG Type: SR Outcomes & Goals Goals:: Verbalizes understanding of THR, RPE & goal METS by session 6, Documents in home exercise log/reports 30 min aerobic 5 day/wk by DC, Demonstrates accurate pulse taking by DC and Other additional outcome/goals: see below Intervention & Plan Exercise Program Goals: Instruct on personal THR & RPE, Instruct on MET level & personal MET goal, Show patient to take own pulse /validate performance until accurate, Instruct on home exercise and Other additional plan/int Physical Activity Home Exercise Physical Activity - Home Exercise: Safe Exercise, Warm-up, Self-monitoring, Cool-Down, Home Exercise > 30 min Daily and Sitting Time <3 hours/daily Outcomes & Goals Outcomes/Goals: Demonstrates correct Warm-up/exercise Cool-Down (S3) if = 2.5 METs, Verbalizes symptoms of exercise intolerance by Session 3 (S3), Demonstrate safe equipment use (S3) & follows exercise prescrition (6) and Other: See below Intervention & Plan Plan/Intervention: Instruct warm-up & cool-down if exercising at > 2 METs, Instruct on symptoms of exercise intolerance & actions to take, Instruct & monitor on saf, Assess intial functional capacity & safety risk and Other See below Nutrition - Initial Assessment Program Goals Nutrition Program Goals Patient has diagnosis of Hyperlipidemia (ICD E78)?: Yes Visit Date of Eval: 12/21/23 (initial eval ) Cholesterol/Lipids (Other Core Measures) Determine presence & major risk factors that modify LDL goal: Hypertension or hypertensive medication, Low HDL cholesterol <40 mg/dL*, Family history of premature CHD in Male < 55 years: female <65 yearsFa and Age men > 45 years; women >/= 55 years Outcomes/Goals: Pt IDs own risk factors & lifestyle modifications by Session 10, Verbalizes symptoms of angina & response by session 3., Pt independently manages and Other Additional Outcomes/Goals: Intervention/Plan: Advocate for lipid panel cholesterol medication if applicable, Instruct on personal lipid levels & lipid goals/NCEP guidelines, Instruct on cholesterol and Other additional plan/int Referral to dietitian:: No Diabetes (Other Core Measures) Diabetes Type: Not Applicable Weight Mgt (Other Care) Height: 6 ft Weight:: 199 lb BMI: 26.9 Outcomes/Goals: Pt sets, maintains & shows weight loss goal & trend during rehab and Other additional outcomes/goals Intervention/Plan: Instruct on ideal BMI & set weight loss goal w/patient, Assist pt to ID & incorporate diet changes for weight loss by S9, Refer to Structured Weight Loss program as appropriate, Encourage goal of using 250- 300dcal per session for weight loss and Other additional plan/interventions Healthy Eating Habits Will attend diet classes:: Yes Outcomes/Goals:: Consume diet rich in vegs,fruits,whole grain/high fiber,fish,lean meat, Limit sat/trans fats,cholesterol & added salts & sugars and Other additional outcome/goals: Intervention/Plan:: Assess current eating habits and Other Additional plan/interventions Education Gave educational materials for:: Signs & symptoms of hypoglycemia, Signs & symptoms of hyperglycemia, Relate diabetes to coronary artery disease and Healthy eating Core - Initial Assessment Visit Date of Eval: 12/21/23 (initial eval ) Medication Compliance Preventative Medication(s):: Aspirin H/O mental health issues: depression, anxiety, or addiction?: No Doesn?t believe in the benefits of treatment?: No Believes medications are unnecessary or harmful?: No Has a concern about medication side effects?: No Expresses concern over the cost of medications?: No Outcomes/Goals: Verbalizes medications,desired effect & common side effects @ DC, Pt self-reports following medication regimen, Keeps card in wallet w/ medications listed by DC and Other additional outcome/goals: Interventions/plans: Instruct on medication effects & side effects, Review medication list w/patient every two weeks, Instruct importance of taking meds as ordered & assist problem solving and Other additional Tobacco Use Tobacco Use: Non-smoker Hypertension Hypertension Diagnosis:: Hypertension ICD-10 I10 Resting Blood Pressure:: 127/87 [place] [employer] Hypertension Guidelines Outcomes/Goals: Able to verbalize/achieve optimal blood pressure <130/80, Incorporates diet changes & exercise for blood pressure control by DC and Other additional outcomes/goals Interventions/plan: Instruct on optimal blood pressure, hypertension & medications, Instruct on effects of sodium, alcohol, stress, exercise &hyperte nsion and Other additional plan/interventions Tobacco Cessation Referral Smoking Cessation Referral:: No Individual Education/Counseling:: No Education Schedule Given:: Yes Psychosocial - Initial Assess VIsit Date of Eval: 12/21/23 (initial eval ) History of previous Mental disease:: No Target Goals Target Goals Outcomes/Goals: See list Psychosocial Outcomes/Goals:: ID's personal stressors & 2 strategies to manage stress by discharge and Other Additional outcome/goals: Intervention/Plan: See List Interventions/Plan:: Assess stressors,coping strategies & signs of derpression on admission, Instruct/assist pt to develop coping & personal stress Mgt st rategies, Refer to Behavioral Health if appropriate, Refer to Physician if appropriate, Instruct patient to recognize signs & symptoms of depression, Instruct patient to recog and Other additional plan/intervention Patient Health Questionnaire PHQ-9 Screening Initial Assessment: 1. Little interest or pleasure in doing things: Not at all 2. Feeling down, depressed, or hopeless: Not at all 3. Trouble falling or staying asleep, or sleeping too much: Not at all 4. Feeling tired or having little energy: Not at all 5. Poor appetite or overeating: Not at all 6. Feeling bad about yourself -- or that you are a failure or have let yourself or your family down: Not at all 7. Trouble concentrating on things, such as reading the newspaper or watching television: Not at all 8. Moving or speaking so slowly that other people could have noticed. Or the opposite - being so fidgety or restless that you have been moving around a lot more than usual: Not at all 9. Thoughts that you would be better off , or of hurting yourself in some way: Not at all How difficult have these problems made it for you to do your work, take care of things at home, or get along with other people?: Not difficult at all Total Score: 0 ANDREI-Q SV Test Statements CAD is a disease of the arteries in the heart: False Examples of risk factors for heart disease: True Angina is chest pain or discomfort: I Don't Know The benefits of resistance training include: True Eating more meat and dairy products: I Don't Know Anti-platelet medications such as aspirin are important: True The only effective way to manage stress: False An exercise warm-up slowly increases heart rate: I Don't Know Prepared, processed foods usually have high sodium: True Depression is common after a heart attack: I Don't Know The statin medications lower cholesterol: True To control blood pressure, lower the amount of sodium: True If someone gets chest discomfort during walking: False Transfats are partially hydrogenated vegetable oils: I Don't Know Sleep apnea that is not treated increases the risk: False To control cholesterol, one should become a vegetarian: False Someone knows if he/she is exercising at the right level: True Diabetes cannot be prevented with exercise & health eating: False Stress is a large risk for heart attack: True A diet that can help lower blood pressure is rich in: True Total Score Total Correct Responses: 15 Self-Efficacy 6-Item Scale Initial Assessment: We would like to know how confident you are in doing certain activities. Please select your confidence level for: Fatigue Select Number: 10 Physical Discomfort or Pain Select Number: 10 Emotional Distress Select Number: 10 Other Symptoms or Health Problems Select Number: 10 Different Tasks and Activities Select Number: 10 Medication Select Number: 10 Total Score:: 10 Nutrition Survey Nutrition Survey Instructions Scoring Instructions Nutrition Survey Initial: Have you lost >10 lbs over the past 2 months without trying?: No Are you following a special diet at home for diabetes, low fat, or low salt?: Yes Are you interested in meeting with a dietitian for help understanding your diet?: Yes Do you eat less than 3 meals a day?: No Do you eat fatty meats (harley, sausage, ribs, etc), fried foods, desserts, large amounts of salad dressings, margarine, butter, or cheese most days?: Yes Do you have food allergies? [Enter types in comment field]: No Do you eat in restaurants more than 3 times a week?: No Do you season food with salt, seasoning salt, or garlic salt?: No Do you used canned, boxed, frozen meals, or soups, seasoning packets?: No Total Score:: 3 Exercise - Final/Discharge Physician Prescribed Exercise Modalities: Treadmill, Rower, Airdyne, NuStep, SciFit and Lateral Submarine Operator Frequency: 2x/week for 18 weeks [36 sessions] and 3x/week for 12 weeks [36 sessions] Intensity: 60-80% of age predicted maximum heart rate reserve Current METSs:: 3 Target Heart Rate:: 101-117 Nutrition - 30-Day Assessment Weight Mgt (Other Care) Height: 6 ft Weight:: 199 lb BMI: 26.9 Nutrition - 60-Day Assessment Weight Mgt (Other Care) Height: 6 ft Weight:: 199 lb BMI: 26.9 Core - Final Assessment Hypertension Resting Blood Pressure:: 127/87 [place] [employer] Hypertension Guidelines Core - 60-Day Assessment Hypertension Resting Blood Pressure:: 127/87 [place] [employer] Hypertension Guidelines Psychosocial - 30-Day Assess Target Goals Target Goals Psychosocial - 60-Day Assess Target Goals Target Goals Psychosocial - 90-Day Assess Target Goals Target Goals Psychosocial - Final Assessmen Target Goals Target Goals Nutrition - 90-Day Assessment Weight Mgt (Other Care) Height: 6 ft Weight:: 199 lb BMI: 26.9 Nutrition - Final Assessment Program Goals Patient has diagnosis of Hyperlipidemia (ICD E78)?: Yes Weight Mgt (Other Care) Height: 6 ft Weight:: 199 lb BMI: 26.9
[2023-12-21 08:08] VITALS: BP 127/87
[2023-12-21 08:17] VITALS: BP 127/87; BMI 26.9
[2023-12-21 08:48] VITALS: BMI 26.9
[2023-12-21 09:00] VITALS: BP 127/87
== END | disposition home or self-care (01) ==
LOC: CR 07:34
PROVIDERS: PCP Family Medicine; Referring Provider Internal Medicine Cardiovascular Disease; Visit Provider Internal Medicine Cardiovascular Disease
DX: Z95.2 Presence of prosthetic heart valve (principal)

== ENCOUNTER 2023-12-31 08:00 | Outpatient (RCR) | payer OTHER, SELFPAY ==
[2023-12-21 08:48] VITALS: BMI 26.9
== END 2024-01-01 23:59 ==
LOC: CR 08:00
PROVIDERS: PCP Family Medicine; Referring Provider Internal Medicine Cardiovascular Disease; Visit Provider Internal Medicine Cardiovascular Disease
DX: Z86.79 Personal history of other diseases of the circulatory system; Z98.890 Other specified postprocedural states; Z95.828 Presence of other vascular implants and grafts
CPT/HCPCS: 93798

== ENCOUNTER 2024-01-30 06:30 | Outpatient (RCR) | payer OTHER, SELFPAY ==
[2023-12-21 08:48] VITALS: BMI 26.9
--- NOTE | 2024-01-16 09:01 | CR.ITP_ITS ---
Exercise - Initial Assessment Visit Session #:: 10 Nutrition - Initial Assessment Weight Mgt (Other Care) Height: 6 ft Weight:: 197 lb 8 oz BMI: 26.7 Psychosocial - Initial Assess Target Goals Target Goals Patient Health Questionnaire PHQ-9 Screening 30-Day Re-eval Assessment: 1. Little interest or pleasure in doing things: Not at all 2. Feeling down, depressed, or hopeless: Not at all 3. Trouble falling or staying asleep, or sleeping too much: Not at all 4. Feeling tired or having little energy: Not at all 5. Poor appetite or overeating: Not at all 6. Feeling bad about yourself -- or that you are a failure or have let yourself or your family down: Not at all 7. Trouble concentrating on things, such as reading the newspaper or watching television: Not at all 8. Moving or speaking so slowly that other people could have noticed. Or the opposite - being so fidgety or restless that you have been moving around a lot more than usual: Not at all 9. Thoughts that you would be better off , or of hurting yourself in some way: Not at all How difficult have these problems made it for you to do your work, take care of things at home, or get along with other people?: Not difficult at all Total Score: 0 Self-Efficacy 6-Item Scale 30-Day Re-eval Assessment: We would like to know how confident you are in doing certain activities. Please select your confidence level for: Fatigue Select Number: 10 Physical Discomfort or Pain Select Number: 10 Emotional Distress Select Number: 10 Other Symptoms or Health Problems Select Number: 10 Different Tasks and Activities Select Number: 10 Medication Select Number: 10 Total Score:: 10 Nutrition Survey Nutrition Survey Instructions Scoring Instructions Exercise - 30-day Assessment Visit Date of Eval: 01/16/24 Session #:: 10 Physician Prescribed Exercise Modalities: Airdyne, NuStep and Lateral [place] Frequency: 3x/week for 12 weeks [36 sessions] Intensity: 60-80% of age predicted maximum heart rate reserve Duration: 30 - 45 minutes Current METSs:: 5 Target Heart Rate:: 117-132 Current RPE:: 12-13 Maximum Excercise HR:: 122 Resting Blood Pressure: 118/76 Maximum Exercise Blood Pressure: 140/98 EKG Type: NSR to ST with occ multifocal PVC's, interpolated pvcs vs pjcs, rare pac, o Outcomes & Goals Goals:: Verbalizes understanding of THR, RPE & goal METS by session 6, Documents in home exercise log/reports 30 min aerobic 5 day/wk by DC, Demonstrates accurate pulse taking by DC and Other additional outcome/goals: see below Intervention & Plan Exercise Program Goals: Instruct on personal THR & RPE, Instruct on MET level & personal MET goal, Show patient to take own pulse /validate performance until accurate, Instruct on home exercise and Other additional plan/int 30-day Reassessments 30 day Reassessments:: Progressing Reassessment Notes & Comments:: RPE explained Physical Activity Home Exercise Physical Activity - Home Exercise: Safe Exercise, Warm-up, Self-monitoring, Cool-Down, Home Exercise > 30 min Daily and Sitting Time <3 hours/daily Outcomes & Goals Outcomes/Goals: Demonstrates correct Warm-up/exercise Cool-Down (S3) if = 2.5 METs, Verbalizes symptoms of exercise intolerance by Session 3 (S3), Demonstrate safe equipment use (S3) & follows exercise prescrition (6) and Other: See below Intervention & Plan Plan/Intervention: Instruct warm-up & cool-down if exercising at > 2 METs, Instruct on symptoms of exercise intolerance & actions to take, Instruct & monitor on saf, Assess intial functional capacity & safety risk and Other See below 30-day Reassessments 30 day Reassessments:: Progressing Reassessment Notes & Comments:: warm up encouraged Nutrition - 30-Day Assessment Program Goals Nutrition Program Goals Patient has diagnosis of Hyperlipidemia (ICD E78)?: Yes Visit Date of Eval: 01/16/24 Session #:: 10 Cholesterol/Lipids (Other Core Measures) Determine presence & major risk factors that modify LDL goal: Hypertension or hypertensive medication, Low HDL cholesterol <40 mg/dL*, Family history of premature CHD in Male < 55 years: female <65 yearsFa and Age men > 45 years; women >/= 55 years Outcomes/Goals: Pt IDs own risk factors & lifestyle modifications by Session 10, Verbalizes symptoms of angina & response by session 3., Pt independently manages and Other Additional Outcomes/Goals: Intervention/Plan: Advocate for lipid panel cholesterol medication if applicable, Instruct on personal lipid levels & lipid goals/NCEP guidelines, Ins truct on cholesterol and Other additional plan/int Referral to dietitian:: No 30-day Reassessments:: Progressing Reassessment Notes & Comments:: pt to attend nutrition class Diabetes (Other Core Measures) Diabetes Type: Not Applicable Weight Mgt (Other Care) Height: 6 ft Weight:: 197 lb 8 oz BMI: 26.7 Diagnosis Overweight/Obesity BMI> 30% ICD-10 E66: No Diagnosis High BMI/Morbid Obesity BMI> 35% ICD-10 Z68: No Outcomes/Goals: Pt sets, maintains & shows weight loss goal & trend during rehab and Other additional outcomes/goals Intervention/Plan: Instruct on ideal BMI & set weight loss goal w/patient, Assist pt to ID & incorporate diet changes for weight loss by S9, Refer to [facility] program as appropriate, Encourage goal of using 250-300dcal per session for weight loss and Other additional plan/interventions 30 day Reassessments:: Progressing Reassessment Notes & Comments:: pt to attend nutrition class Healthy Eating Habits Will attend diet classes:: Yes Outcomes/Goals:: Consume diet rich in vegs,fruits,whole grain/high fiber,fish,lean meat, Limit sat/trans fats,cholesterol & added salts & sugars and Other additional outcome/goals: Intervention/Plan:: Assess current eating habits and Other Additional plan/interventions 30-day Reassessments:: Progressing Reassessment Notes & Comments:: pt to attend nutrition class Education Gave educational materials for:: Signs & symptoms of hypoglycemia, Signs & symptoms of hyperglycemia, Relate diabetes to coronary artery disease and Healthy eating Nutrition - 60-Day Assessment Weight Mgt (Other Care) Height: 6 ft Weight:: 197 lb 8 oz BMI: 26.7 Core - 30-Day Assessment Visit Date of Eval: 01/16/24 Session #:: 10 Medication Compliance Preventative Medication(s):: Aspirin and Statin/lipid H/O mental health issues: depression, anxiety, or addiction?: No Doesn?t believe in the benefits of treatment?: No Believes medications are unnecessary or harmful?: No Has a concern about medication side effects?: No Expresses concern over the cost of medications?: No Outcomes/Goals: Verbalizes medications,desired effect & common side effects @ DC, Pt self-reports following medication regimen, Keeps card in wallet w/medications listed by DC and Other additional outcome/goals: Interventions/plans: Instruct on medication effects & side effects, Review medication list w/patient every two weeks, Instruct importance of taking meds as ordered & assist problem solving and Other additional 30-day Reassessments:: Progressing Reassessment Notes & Comments:: pt encouraged to take his meds Tobacco Use Tobacco Use: Non-smoker Hypertension Hypertension Diagnosis:: Hypertension ICD-10 I10 Resting Blood Pressure:: 118/76 [place] [employer] Hypertension Guidelines Peak Exercise Blood Pressure:: 140/98 Outcomes/Goals: Able to verbalize/achieve optimal blood pressure <130/80, Incorporates diet changes & exercise for blood pressure control by DC and Other additional outcomes/goals Interventions/plan: Instruct on optimal blood pressure, hypertension & medications, Instruct on effects of sodium, alcohol, stress, exercise &hypertension and Other additional plan/interventions 30 day Reassessments:: Progressing Reassessment Notes & Comments:: pt encouraged to take his meds Tobacco Cessation Referral Smoking Cessation Referral:: No Individual Education/Counseling:: No Education Schedule Given:: Yes Psychosocial - 30-Day Assess VIsit Date of Eval: 01/16/24 Session #:: 10 History of previous Mental disease:: No Target Goals Target Goals Outcomes/Goals: See list Psychosocial Outcomes/Goals:: ID's personal stressors & 2 strategies to manage stress by discharge and Other Additional outcome/goals: Intervention/Plan: See List Interventions/Plan:: Assess stressors,coping strategies & signs of derpression on admission, Instruct/assist pt to develop coping & personal stress Mgt strategies, Refer to Behavioral Health if appropriate, Refer to Physician if appropriate, Instruct patient to recognize signs & symptoms of depression, Instruct patient to recog and Other additional plan/intervention 30-day Reassessments: 30 day Reassessments:: Met Psychosocial - 60-Day Assess Target Goals Target Goals Outcomes/Goals: See list Psychosocial Outcomes/Goals:: ID's personal stressors & 2 strategies to manage stress by discharge and Other Additional outcome/goals: Psychosocial - 90-Day Assess Target Goals Target Goals Psychosocial - Final Assessmen Target Goals Target Goals Nutrition - 90-Day Assessment Weight Mgt (Other Care) Height: 6 ft Weight:: 197 lb 8 oz BMI: 26.7 Nutrition - Final Assessment Weight Mgt (Other Care) Height: 6 ft Weight:: 197 lb 8 oz BMI: 26.7
[2024-01-16 09:14] VITALS: BP 118/76; BMI 26.7
== END 2024-02-01 23:59 ==
LOC: CR 06:30
PROVIDERS: PCP Family Medicine; Referring Provider Internal Medicine Cardiovascular Disease; Visit Provider Internal Medicine Cardiovascular Disease
DX: Z98.890 Other specified postprocedural states (principal); Z86.79 Personal history of other diseases of the circulatory system; Z95.828 Presence of other vascular implants and grafts
CPT/HCPCS: 93798

== ENCOUNTER → 2024-02-08 | Outpatient (CLI) | payer OTHER, SELFPAY ==
[2024-01-16 09:14] VITALS: BMI 26.7
--- NOTE | 2024-02-08 14:30 | MRI_ITS ---
EXAM: MR HEAD WITHOUT AND WITH INTRAVENOUS CONTRAST CLINICAL INDICATION: tia, strokelike symptoms, history of stroke TECHNIQUE: Multiplanar and multisequence MR images of the brain were obtained without and with intravenous contrast. CONTRAST: IV 19CC CLARISCAN COMPARISON: No relevant prior studies available. FINDINGS: BRAIN AND EXTRA-AXIAL SPACES: Normal. No intra- or extra-axial hemorrhage. No evidence of acute infarct. No intracranial mass or mass effect. Normal preservation of the michelle/white matter interface. Posterior fossa structures are unremarkable. Ventricles are appropriate for age. No hydrocephalus. Basal cisterns are patent. No abnormal contrast enhancement. SELLA: Normal. Normal sella turcica, pituitary gland, infundibular stalk, optic chiasm and hypothalamus. AUDITORY SYSTEM: Normal. The internal auditory canals are patent. BONES/JOINTS: Intact calvarium. SINUSES: Unremarkable as visualized. Clear. MASTOID AIR CELLS: Unremarkable as visualized. Clear. ORBITS: Unremarkable as visualized. Both globes, extraocular muscles, optic nerves and retrobulbar fat appear unremarkable. VASCULATURE: Unremarkable as visualized. Normal flow voids in the major intracranial circulation. MRI/Brain W/WO Contrast IMPRESSION: Normal MRI brain without and with intravenous contrast. Electronically Signed: Domenic Dela Cruz MD at 16:33 EDT ,
[2024-02-08 15:07] LABS: CREATININE FINGERSTICK < 1.0 mg/dL (0.70-1.30); EGFR FINGERSTICK > 60.0000 mL/min (>60)
== END | disposition home or self-care (01) ==
LOC: MRI 14:24
PROVIDERS: PCP Family Medicine; Referring Provider Family Medicine; Visit Provider Family Medicine
DX: R47.81 Slurred speech (principal); Z86.73 Personal history of transient ischemic attack (TIA), and cerebral infarction without residual deficits
CPT/HCPCS: 70553; A9575

== ENCOUNTER → 2024-02-25 | Outpatient (CLI) | payer OTHER, SELFPAY ==
[2024-01-16 09:14] VITALS: BMI 26.7
[2024-02-18 05:09] VITALS: BMI 27.2
--- NOTE | 2024-02-25 07:52 | ECHOD_ITS ---
Reason For Study: Dilated CMP, Ao Root replacement Procedure This was a 2D Doppler, Color Flow transthoracic echocardiogram. Exam performed in department. Left Ventricle Normal LV size. Mild concentric left ventricular hypertrophy. Left ventricular systolic function is lower limits of normal. The estimated ejection fraction is 45-50 %. The 3D full volume ejection fraction is 50 %. Post operative septal motion. Normal diastology for age. The prior global longitudinal strain was -16 % . The global longitudinal strain is mildly abnormal. Right Ventricle Normal RV size. Normal systolic function. Atria The left and right atria are normal. Mitral Valve Mild mitral valve prolapse. Mild-Moderate (1-2+) mitral valve insufficiency. Tricuspid Valve Normal tricuspid valve. Mild (1+) tricuspid valve insufficiency. Pulmonary artery systolic pressure is 26 mmHg. Aortic Valve Trisinus/trileaflet aortic valve. Mild (1+) eccentric aortic valve insufficiency. Pulmonic Valve Normal pulmonic valve. Trivial pulmonic valve insufficiency. Great Vessels Normal aortic root. Pericardium/Pleural No pericardial effusion. MMode/2D Measurements & Calculations LVIDd: 4.8 cm IVSd: 1.2 cm LVOT diam: 2.2 cm LVIDs: 3.7 cm LVPWd: 1.3 cm LVOT area: 3.9 cm2 RVDd: 3.9 cm FS: 22.7 % Ao root diam: 3.6 cm LAV(MOD-bp): 57.5 ml LVAd ap4: 35.0 cm2 LAV(MOD-bp) Indexed: 27.0 ml/m2 LVLd ap4: 8.7 cm LAV(MOD-sp2): 62.8 ml EDV(MOD-sp4): 118.9 ml LAV(MOD-sp4): 52.3 ml EDV(sp4-el): 120.1 ml LVAs ap4: 24.3 cm2 LVLs ap4: 7.5 cm ESV(MOD-sp4): 67.4 ml ESV(sp4-el): 67.2 ml EF(MOD-sp4): 43.3 % EF(sp4-el): 44.0 % LVAd ap2: 44.2 cm2 SV(MOD-sp4): 51.5 ml SV(MOD-sp2): 79.3 ml LVLd ap2: 9.5 cm EDV(MOD-sp2): 172.3 ml EDV(sp2-el): 173.8 ml LVAs ap2: 31.1 cm2 LVLs ap2: 8.9 cm ESV(MOD-sp2): 93.0 ml ESV(sp2-el): 91.9 ml EF(MOD-sp2): 46.0 % SV(sp4-el): 52.9 ml LA A4 area: 19.7 cm2 RA A4 area: 15.8 cm2 TAPSE: 1.8 cm Time Measurements MV dec time: 0.45 sec Doppler Measurements & Calculations MV E max torsten: 56.1 cm/sec Lat Peak E' Torsten: 9.0 cm/sec Med Peak E' Torsten: 6.7 cm/sec MV A max torsten: 49.1 cm/sec E/E' lat: 6.2 E/E' med: 8.4 MV E/A: 1.1 MV V2 max: 55.9 cm/sec MV dec slope: 124.1 cm/sec2 Ao V2 max: 87.5 cm/sec MV max P.2 mmHg Ao max P.1 mmHg MV V2 mean: 40.1 cm/sec Ao V2 mean: 62.1 cm/sec MV mean P.69 mmHg Ao mean P.7 mmHg MV V2 VTI: 19.0 cm Ao V2 VTI: 18.6 cm MVA(VTI): 3.1 cm2 AV (velocity ratio): 0.82 RIZWANA(I,D): 3.2 cm2 RIZWANA(V,D): 3.2 cm2 LV V1 max: 71.5 cm/sec SV(LVOT): 59.7 ml PA V2 max: 67.8 cm/sec LV V1 max P.1 mmHg PA max PG (full): 1.0 mmHg LV V1 mean P.2 mmHg LV V1 mean: 51.1 cm/sec LV V1 VTI: 15.3 cm TR max torsten: 238.6 cm/sec TR max P.8 mmHg ECHO/Echo Complete Interpretation Summary The estimated ejection fraction is 45-50 %. Mild concentric left ventricular hypertrophy. Mild mitral valve prolapse. Mild-Moderate (1-2+) mitral valve insufficiency. Mild (1+) tricuspid valve insufficiency. Mild (1+) eccentric aortic valve insufficiency. Ordering Physician: Richard Hogan Referring Physician: Chilango Welsh Performed By: Maria Eugenia Pollock RDCS
== END | disposition home or self-care (01) ==
LOC: CVS 07:37
PROVIDERS: PCP Family Medicine; Visit Provider Internal Medicine Cardiovascular Disease
DX: I25.10 Atherosclerotic heart disease of native coronary artery without angina pectoris (principal); I35.1 Nonrheumatic aortic (valve) insufficiency; Z98.890 Other specified postprocedural states
CPT/HCPCS: 93306

== ENCOUNTER → 2024-02-26 | Outpatient (CLI) | payer OTHER, SELFPAY ==
[2024-02-18 05:09] VITALS: BMI 27.2
[2024-02-26 10:06] LABS: AST(SGOT) 20 U/L (15-37); Absolute Lymphocyte Count 1.84 X10^3/uL (0.83-4.51); Absolute Neutrophil Count 6.1 X10^3/uL (2.0-7.7); Alanine Aminotransfer ALT/SGPT 28 U/L (16-61); Albumin, Serum 3.6 g/dL (3.2-5.0); Alkaline Phosphatase 73 U/L (45-117); Anion Gap 4 (5-15); BUN 16 mg/dL (7-18); BUN/Creat Ratio 15.8 RATIO (10-20); Basophil# 0.06 X10^3/uL; Basophil% 0.7 % (0-1); Calcium,Total 8.9 mg/dL (8.5-10.1); Chloride 109 mmol/L (98-107); Cholesterol 128 mg/dL (200); Creatinine, Serum 1.01 mg/dL (0.70-1.30); EST Glomerular Filtration Rate 79 mL/min (>60); Eosinophil# 0.13 X10^3/uL; Eosinophils% 1.4 % (0-5); Est Glom Filt Rate - Afr Amer 96 mL/min (>60); Globulin 3.6 g/dL (2.2-4.2); Glucose 95 mg/dL (74-106); Hematocrit 46.5 % (40-54); Hemoglobin 14.8 g/dL (13.0-16.5); High Density Lipoprotein 54 mg/dL; Lymphocyte # 1.84 X10^3/ul (0.83-4.51); Lymphocyte % 20.4 % (19-41); Mean Corp Hgb Conc 31.8 g/dL (32-36); Mean Corpuscular Volume 81.7 fL (80-94); Mean Platelet Vol. 9.5 fl (6.2-12.0); Monocyte# 0.89 X10^3/uL; Monocyte% 9.8 % (0-10); NRBC Flagged by Analyzer 0 % (0-5); Neutrophil # 6.08 X10^3/uL (2.7-7.7); Neutrophil % 67.3 % (47-70); Platelet Count 312 K/mm3 (150-450); Potassium 3.7 mmol/L (3.5-5.1); Protein, Total 7.2 g/dL (6.4-8.2); RBC Distribution Width CV 13.8 % (11.6-14.6); RBC Distribution Width SD 40.7 fl (35.1-43.9); Red Blood Count 5.69 M/mm3 (4.6-6.2); Sodium Level 140 mmol/L (136-145); Triglycerides 50 mg/dL; Very Low Density Lipoprotein 10 mg/dL (5-40)
== END | disposition home or self-care (01) ==
LOC: MFPLAB 09:05
PROVIDERS: PCP Family Medicine; Visit Provider Family Medicine
DX: Z86.73 Personal history of transient ischemic attack (TIA), and cerebral infarction without residual deficits (principal); R47.81 Slurred speech
CPT/HCPCS: 36415; 80053; 80061; 85025

== ENCOUNTER 2024-02-29 06:30 | Outpatient (RCR) | payer OTHER, SELFPAY ==
[2024-01-16 09:14] VITALS: BMI 26.7
[2024-02-02 02:01] VITALS: BP 118/76
--- NOTE | 2024-02-18 05:01 | CR.ITP_ITS ---
Exercise - Initial Assessment Physician Prescribed Exercise Modalities: Treadmill, Rower and SciFit Stepper Nutrition - Initial Assessment Weight Mgt (Other Care) Height: 6 ft Weight:: 201 lb BMI: 27.2 Psychosocial - Initial Assess Target Goals Target Goals Referral to Behavioral Health PS - Interventions: Yes: Attend Stress Management Classes and No: Referral to Behavioral Health if PHQ-9 score >9:, No: Referral to [facility] and No: Referral to Physician if PHQ-9 if score is 5-9: Patient Health Questionnaire PHQ-9 Screening 60-Day Re-eval Assessment: 1. Little interest or pleasure in doing things: Not at all 2. Feeling down, depressed, or hopeless: Not at all 3. Trouble falling or staying asleep, or sleeping too much: Not at all 4. Feeling tired or having little energy: Not at all 5. Poor appetite or overeating: Not at all 6. Feeling bad about yourself -- or that you are a failure or have let yourself or your family down: Not at all 7. Trouble concentrating on things, such as reading the newspaper or watching television: Not at all 8. Moving or speaking so slowly that other people could have noticed. Or the opposite - being so fidgety or restless that you have been moving around a lot more than usual: Not at all 9. Thoughts that you would be better off , or of hurting yourself in some way: Not at all How difficult have these problems made it for you to do your work, take ca re of things at home, or get along with other people?: Not difficult at all Total Score: 0 Self-Efficacy 6-Item Scale 60-Day Re-eval Assessment: We would like to know how confident you are in doing certain activities. Please select your confidence level for: Fatigue Select Number: 10 Physical Discomfort or Pain Select Number: 10 Emotional Distress Select Number: 10 Other Symptoms or Health Problems Select Number: 10 Different Tasks and Activities Select Number: 10 Medication Select Number: 10 Total Score:: 10 Nutrition Survey Nutrition Survey Instructions Scoring Instructions Exercise - 30-day Assessment Physician Prescribed Exercise Modalities: Treadmill, Rower and SciFit Stepper Exercise - 60-day Assessment Visit Date of Eval: 02/18/24 Session #:: 19 Comments:: Patient has missed 4 sessions due to vacation Physician Prescribed Exercise Modalities: Treadmill, Rower and SciFit Stepper Frequency: 3x/week for 12 weeks [36 sessions] Intensity: 60-80% of age predicted maximum heart rate reserve Duration: 30 - 45 minutes Current METSs:: 6.0 Target Heart Rate:: 117-132 Current RPE:: 11-13 Maximum Excercise HR:: 130 Resting Blood Pressure: 138/82 Maximum Exercise Blood Pressure: 176/100 EKG Type: NSR w/occasional multifocal PVCs, rare PAC. Interlopolated PVCs vs. PJCs. Current Physical Activity or Exercising minutes: 34:44 Outcomes & Goals Goals:: Verbalizes understanding of THR, RPE & goal METS by session 6, Documents in home exercise log/reports 30 min aerobic 5 day/wk by DC and Demonstrates accurate pulse taking by DC Intervention & Plan Exercise Program Goals: Instruct on personal THR & RPE, Instruct on MET level & personal MET goal, Show patient to take own pulse /validate performance until accurate and Instruct on home exercise 30-day Reassessments 30 day Reassessments:: Met Physical Activity Home Exercise Physical Activity - Home Exercise: Safe Exercise, Warm-up, Self-monitoring, Co ol-Down, Home Exercise > 30 min Daily and Sitting Time <3 hours/daily Outcomes & Goals Outcomes/Goals: Demonstrates correct Warm-up/exercise Cool-Down (S3) if = 2.5 METs, Verbalizes symptoms of exercise intolerance by Session 3 (S3) and Demonstrate safe equipment use (S3) & follows exercise prescrition (6) Intervention & Plan Plan/Intervention: Instruct warm-up & cool-down if exercising at > 2 METs, Instruct on symptoms of exercise intolerance & actions to take, Instruct & monitor on saf and Assess intial functional capacity & safety risk 30-day Reassessments 30 day Reassessments:: Met Exercise - 90-day Assessment Physician Prescribed Exercise Modalities: Treadmill, Rower and SciFit Stepper Exercise - Final/Discharge Physician Prescribed Exercise Modalities: Treadmill, Rower and SciFit Stepper Nutrition - 30-Day Assessment Weight Mgt (Other Care) Height: 6 ft Weight:: 201 lb BMI: 27.2 Nutrition - 60-Day Assessment Program Goals Nutrition Program Goals Patient has diagnosis of Hyperlipidemia (ICD E78)?: Yes Visit Date of Eval: 02/18/24 Session #:: 19 Cholesterol/Lipids (Other Core Measures) Total Triglycerides (mg/dL): 59 Total Cholesterol: 122 LDL Cholesterol (mg/dL): 64 HDL Cholesterol (mg/dL): 46 Determine presence & major risk factors that modify LDL goal: Hypertension or hypertensive medication and Age men > 45 years; women >/= 55 years Outcomes/Goals: Pt IDs own risk factors & lifestyle modifications by Session 10, Verbalizes symptoms of angina & response by session 3. and Pt independently manages Intervention/Plan: Instruct on personal lipid levels & lipid goals/NCEP guidelines and Instruct on cholesterol Referral to dietitian:: Yes 30-day Reassessments:: Met Diabetes (Other Core Measures) Diabetes Type: Not Applicable Weight Mgt (Other Care) Not Applicable: Yes Height: 6 ft Weight:: 201 lb BMI: 27.2 Diagnosis Overweight/Obesity BMI> 30% ICD-10 E66: No Diagnosis High BMI/Morbid Obesity BMI> 35% ICD-10 Z68: No Outcomes/Goals: Pt sets, maintains & shows weight loss goal & trend during rehab Intervention/Plan: Instruct on ideal BMI & set weight loss goal w/patient 30 day Reassessments:: Progressing Healthy Eating Habits Will attend diet classes:: Yes Outcomes/Goals:: Consume diet rich in vegs,fruits,whole grain/high fiber,fish,lean meat and Limit sat/trans fats,cholesterol & added salts & sugars Intervention/Plan:: Assess current eating habits 30-day Reassessments:: Progressing Education Gave educational materials for:: Healthy eating Core - 60-Day Assessment Visit Date of Eval: 02/18/24 Session #:: 19 Medication Compliance Preventative Medication(s):: Aspirin and Statin/lipid H/O mental health issues: depression, anxiety, or addiction?: No Doesn?t believe in the benefits of treatment?: No Believes medications are unnecessary or harmful?: No Has a concern about medication side effects?: No Expresses concern over the cost of medications?: No Outcomes/Goals: Verbalizes medications,desired effect & common side effects @ DC and Pt self-reports following medication regimen Interventions/plans: Instruct on medication effects & side effects, Review medication list w/patient every two weeks and Instruct importance of taking meds as ordered & assist problem solving 30-day Reassessments:: Met Tobacco Use Tobacco Use: Non-smoker Hypertension Hypertension Diagnosis:: Hypertension ICD-10 I10 Resting Blood Pressure:: 138/82 [place] [employer] Hypertension Guidelines Peak Exercise Blood Pressure:: 176/100 Outcomes/Goals: Able to verbalize/achieve optimal blood pressure <130/80 and Incorporates diet changes & exercise for blood pressure control by DC Interventions/plan: Instruct on optimal blood pressure, hypertension & medications and Instruct on effects of sodium, alcohol, stress, exercise &hypertension 30 day Reassessments:: Progressing Reassessment Notes & Comments:: Resting BPs remain > 130/80, report sent to neurological surgery teacher Tobacco Cessation Referral Smoking Cessation Referral:: No Individual Education/Counseling:: No Education Schedule Given:: Yes Psychosocial - 30-Day Assess Target Goals Target Goals Referral to Behavioral Health PS - Interventions: Yes: Attend Stress Management Classes and No: Referral to Behavioral Health if PHQ-9 score >9:, No: Referral to [facility] and No: Referral to Physician if PHQ-9 if score is 5-9: Outcomes/Goals: See list Psychosocial Outcomes/Goals:: ID's personal stressors & 2 strategies to manage stress by discharge Psychosocial - 60-Day Assess VIsit Date of Eval: 02/18/24 Session #:: 19 Not Applicable: Yes History of previous Mental disease:: No Target Goals Target Goals Psychosocial Test Tool Used:: PHQ-9 Questionnaire phq-9 Severity Referral to Behavioral Health PS - Interventions: Yes: Attend Stress Management Classes and No: Referral to Behavioral Health if PHQ-9 score >9:, No: Referral to [facility] and No: Referral to Physician if PHQ-9 if score is 5-9: Outcomes/Goals: See list Psychosocial Outcomes/Goals:: ID's personal stressors & 2 strategies to manage stress by discharge Intervention/Plan: See List Interventions/Plan:: Assess stressors,coping strategies & signs of derpression on admission, Instruct/assist pt to develop coping & personal stress Mgt strategies, Instruct patient to recognize signs & symptoms of depression and Instruct patient to recog 30-day Reassessments: 30 day Reassessments:: Met Psychosocial - 90-Day Assess Target Goals Target Goals Referral to Behavioral Health PS - Interventions: Yes: Attend Stress Management Classes and No: Referral to Behavioral Health if PHQ-9 score >9:, No: Referral to [facility] and No: Referral to Physician if PHQ-9 if score is 5-9: Psychosocial - Final Assessmen Target Goals Target Goals Referral to Behavioral Health PS - Interventions: Yes: Attend Stress Management Classes and No: Referral to Behavioral Health if PHQ-9 score >9:, No: Referral to [facility] and No: Referral to Physician if PHQ-9 if score is 5-9: Nutrition - 90-Day Assessment Weight Mgt (Other Care) Height: 6 ft Weight:: 201 lb BMI: 27.2 Nutrition - Final Assessment Weight Mgt (Other Care) Height: 6 ft Weight:: 201 lb BMI: 27.2
[2024-02-18 05:05] VITALS: BP 138/82
[2024-02-18 05:09] VITALS: BP 138/82; BMI 27.2
== END 2024-03-02 23:59 ==
LOC: CR 06:30
PROVIDERS: PCP Family Medicine; Referring Provider Internal Medicine Cardiovascular Disease; Visit Provider Internal Medicine Cardiovascular Disease
DX: Z98.890 Other specified postprocedural states (principal); Z86.79 Personal history of other diseases of the circulatory system; Z95.828 Presence of other vascular implants and grafts
CPT/HCPCS: 93798

== ENCOUNTER 2024-04-02 08:00 | Outpatient (RCR) | payer OTHER, SELFPAY ==
[2024-02-18 05:09] VITALS: BMI 27.2
[2024-03-03 00:42] VITALS: BP 118/76; BP 138/82
--- NOTE | 2024-03-19 07:09 | CR.ITP_ITS ---
Exercise - Initial Assessment Physician Prescribed Exercise Modalities: Treadmill, Rower and SciFit Stepper Nutrition - Initial Assessment Weight Mgt (Other Care) Height: 6 ft Weight:: 201 lb BMI: 27.2 Psychosocial - Initial Assess Target Goals Target Goals Patient Health Questionnaire PHQ-9 Screening 90-Day Re-eval Assessment: 1. Little interest or pleasure in doing things: Not at all 2. Feeling down, depressed, or hopeless: Not at all 3. Trouble falling or staying asleep, or sleeping too much: Not at all 4. Feeling tired or having little energy: Not at all 5. Poor appetite or overeating: Not at all 6. Feeling bad about yourself -- or that you are a failure or have let yourself or your family down: Not at all 7. Trouble concentrating on things, such as reading the newspaper or wat[employer] kari television: Not at all 8. Moving or speaking so slowly that other people could have noticed. Or the opposite - being so fidgety or restless that you have been moving around a lot more than usual: Not at all 9. Thoughts that you would be better off , or of hurting yourself in some way: Not at all How difficult have these problems made it for you to do your work, take care of things at home, or get along with other people?: Not difficult at all Total Score: 0 Self-Efficacy 6-Item Scale 90-Day Re-eval Assessment: We would like to know how confident you are in doing certain activities. Please select your confidence level for: Fatigue Select Number: 10 Physical Discomfort or Pain Select Number: 10 Emotional Distress Select Number: 10 Other Symptoms or Health Problems Select Number: 10 Different Tasks and Activities Select Number: 10 Medication Select Number: 10 Total Score:: 10 Nutrition Survey Nutrition Survey Instructions Scoring Instructions Exercise - 30-day Assessment Physician Prescribed Exercise Modalities: Treadmill, Rower and SciFit Stepper Exercise - 60-day Assessment Physician Prescribed Exercise Modalities: Treadmill, Rower and SciFit Stepper Exercise - 90-day Assessment Visit Date of Eval: 03/19/24 Session #:: 27 Physician Prescribed Exercise Modalities: Treadmill, Rower and SciFit Stepper Frequency: 3x/week for 12 weeks [36 sessions] Intensity: 60-80% of age predicted maximum heart rate reserve Duration: 30 - 45 minutes Current METSs:: 7.9 Target Heart Rate:: 117-132 Current RPE:: 11-12 Maximum Excercise HR:: 133 Resting Blood Pressure: 150/84 Maximum Exercise Blood Pressure: 160/98 EKG Type: NSR to ST with occ multifocal PVC's, interpolated PVC vs PJC, rare pac, occ Outcomes & Goals Goals:: Verbalizes understanding of THR, RPE & goal METS by session 6, Documents in home exercise log/reports 30 min aerobic 5 day/wk by DC, Demonstrates accurate pulse taking by DC and Other additional outcome/goals: see below Intervention & Plan Exercise Program Goals: Instruct on personal THR & RPE, Instruct on MET level & personal MET goal, Show patient to take own pulse /validate performance until accurate, Instruct on home exercise and Other additional plan/int 30-day Reassessments 30 day Reassessments:: Met Physical Activity Home Exercise Physical Activity - Home Exercise: Safe Exercise, Warm-up, Self-monitoring, [place] l-Down, Home Exercise > 30 min Daily and Sitting Time <3 hours/daily Outcomes & Goals Outcomes/Goals: Demonstrates correct Warm-up/exercise Cool-Down (S3) if = 2.5 METs, Verbalizes symptoms of exercise intolerance by Session 3 (S3), Demonstrate safe equipment use (S3) & follows exercise prescrition (6) and Other: See below Intervention & Plan Plan/Intervention: Instruct warm-up & cool-down if exercising at > 2 METs, Instruct on symptoms of exercise intolerance & actions to take, Instruct & monitor on saf, Assess intial functional capacity & safety risk and Other See below 30-day Reassessments 30 day Reassessments:: Met Exercise - Final/Discharge Physician Prescribed Exercise Modalities: Treadmill, Rower and SciFit Stepper Nutrition - 30-Day Assessment Weight Mgt (Other Care) Height: 6 ft Weight:: 201 lb BMI: 27.2 Nutrition - 60-Day Assessment Weight Mgt (Other Care) Height: 6 ft Weight:: 201 lb BMI: 27.2 Core - 90 Day Assessment Visit Date of Eval: 03/19/24 Session #:: 27 Medication Compliance Preventative Medication(s):: Aspirin and Statin/lipid H/O mental health issues: depression, anxiety, or addiction?: No Doesn?t believe in the benefits of treatment?: No Believes medications are unnecessary or harmful?: No Has a concern about medication side effects?: No Expresses concern over the cost of medications?: No Outcomes/Goals: Verbalizes medications,desired effect & common side effects @ DC, Pt self-reports following medication regimen, Keeps card in wallet w/medications listed by DC and Other additional outcome/goals: Interventions/plans: Instruct on medication effects & side effects, Review medication list w/patient every two weeks, Instruct importance of taking meds as ordered & assist problem solving and Other additional 30-day Reassessments:: Met Tobacco Use Tobacco Use: Non-smoker Hypertension Hypertension Diagnosis:: Hypertension ICD-10 I10 Resting Blood Pressure:: 150/84 [place] [employer] Hypertension Guidelines Peak Exercise Blood Pressure:: 160/98 Outcomes/Goals: Able to verbalize/achieve optimal blood pressure <130/80, Incorporates diet changes & exercise for blood pressure control by DC and Other additional outcomes/goals Interventions/plan: Instruct on optimal blood pressure, hypertension & medications, Instruct on effects of sodium, alcohol, stress, exercise &hypertension and Other additional plan/interventions Tobacco Cessation Referral Smoking Cessation Referral:: No Individual Education/Counseling:: No Education Schedule Given:: Yes Psychosocial - 30-Day Assess Target Goals Target Goals Psychosocial - 60-Day Assess Target Goals Target Goals Psychosocial - 90-Day Assess VIsit Date of Eval: 03/19/24 Session #:: 27 History of previous Mental disease:: No Target Goals Target Goals Outcomes/Goals: See list Psychosocial Outcomes/Goals:: ID's personal stressors & 2 strategies to manage stress by discharge and Other Additional outcome/goals: Intervention/Plan: See List Interventions/Plan:: Assess stressors,coping strategies & signs of derpression on admission, Instruct/assist pt to develop coping & personal stress Mgt strategies, Refer to Behavioral Health if appropriate, Refer to Physician if appropriate, Instruct patient to recognize signs & symptoms of depression, Instruct patient to recog and Other additional plan/intervention 30-day Reassessments: 30 day Reassessments:: Met Psychosocial - Final Assessmen Target Goals Target Goals Nutrition - 90-Day Assessment Program Goals Nutrition Program Goals Patient has diagnosis of Hyperlipidemia (ICD E78)?: Yes Visit Date of Eval: 03/19/24 Session #:: 27 Cholesterol/Lipids (Other Core Measures) Determine presence & major risk factors that modify LDL goal: Hypertension or hypertensive medication, Low HDL cholesterol <40 mg/dL*, Family history of premature CHD in Male < 55 years: female <65 yearsFa and Age men > 45 years; women >/= 55 years Outcomes/Goals: Pt IDs own risk factors & lifestyle modifications by Session 10, Verbalizes symptoms of angina & response by session 3., Pt independently manages and Other Additional Outcomes/Goals: Intervention/Plan: Advocate for lipid panel cholesterol medication if applicable, Instruct on personal lipid levels & lipid goals/NCEP guidelines, Instruct on cholesterol and Other additional plan/int 30-day Reassessments:: Met Diabetes (Other Core Measures) Diabetes Type: Not Applicable Weight Mgt (Other Care) Height: 6 ft Weight:: 201 lb BMI: 27.2 Diagnosis High BMI/Morbid Obesity BMI> 35% ICD-10 Z68: No Outcomes/Goals: Pt sets, maintains & shows weight loss goal & trend during rehab and Other additional outcomes/goals Intervention/Plan: Instruct on ideal BMI & set weight loss goal w/patient, Assist pt to ID & incorporate diet changes for weight loss by S9, Refer to Structured Weight Loss program as appropriate, Encourage goal of using 250- 300dcal per session for weight loss and Other additional plan/interventions 30 day Reassessments:: Met Healthy Eating Habits Will attend diet classes:: Yes Outcomes/Goals:: Consume diet rich in vegs,fruits,whole grain/high fiber,fish,lean meat, Limit sat/trans fats,cholesterol & added salts & sugars and Other additional outcome/goals: Intervention/Plan:: Assess current eating habits and Other Additional plan/interventions 30-day Reassessments:: Met Education Gave educational materials for:: Signs & symptoms of hypoglycemia, Signs & symptoms of hyperglycemia, Relate diabetes to coronary artery disease and Healthy eating Nutrition - Final Assessment Weight Mgt (Other Care) Height: 6 ft Weight:: 201 lb BMI: 27.2
[2024-03-19 07:18] VITALS: BP 150/84; BMI 27.2
== END 2024-04-02 23:59 ==
LOC: CR 08:00
PROVIDERS: PCP Family Medicine; Referring Provider Internal Medicine Cardiovascular Disease; Visit Provider Internal Medicine Cardiovascular Disease
DX: Z98.890 Other specified postprocedural states (principal); Z86.79 Personal history of other diseases of the circulatory system; Z95.828 Presence of other vascular implants and grafts
CPT/HCPCS: 93798

== ENCOUNTER 2024-04-23 08:00 | Outpatient (RCR) | payer OTHER, SELFPAY ==
[2024-03-19 07:18] VITALS: BMI 27.2
[2024-04-03 00:46] VITALS: BP 118/76; BP 138/82; BP 150/84
--- NOTE | 2024-04-21 11:38 | CR.ITP_ITS ---
Exercise - Initial Assessment Physician Prescribed Exercise Modalities: Treadmill, Rower and SciFit Stepper Target Heart Rate:: 117-132 Nutrition - Initial Assessment Program Goals Nutrition Program Goals Patient has diagnosis of Hyperlipidemia (ICD E78)?: Yes Weight Mgt (Other Care) Height: 6 ft Weight:: 203 lb BMI: 27.5 Core - Initial Assessment Hypertension Resting Blood Pressure:: 138/80 [place] [employer] Hypertension Guidelines Psychosocial - Initial Assess Target Goals Target Goals Patient Health Questionnaire PHQ-9 Screening Discharge Assessment: 1. Little interest or pleasure in doing things: Not at all 2. Feeling down, depressed, or hopeless: Not at all 3. Trouble falling or staying asleep, or sleeping too much: Not at all 4. Feeling tired or having little energy: Not at all 5. Poor appetite or overeating: Not at all 6. Feeling bad about yourself -- or that you are a failure or have let yourself or your family down: Not at all 7. Trouble concentrating on things, such as reading the newspaper or watching television: Not at all 8. Moving or speaking so slowly that other people could have noticed. Or the opposite - being so fidgety or restless that you have been moving around a lot more than usual: Not at all 9. Thoughts that you would be better off , or of hurting yourself in some way: Not at all How difficult have these problems made it for you to do your work, take care of things at home, or get along with other people?: Not difficult at all Total Score: 0 Self-Efficacy 6-Item Scale Discharge Assessment: We would like to know how confident you are in doing certain activities. Please select your confidence level for: Fatigue Select Number: 10 Physical Discomfort or Pain Select Number: 10 Emotional Distress Select Number: 10 Other Symptoms or Health Problems Select Number: 10 Different Tasks and Activities Select Number: 10 Medication Select Number: 10 Total Score:: 10 Nutrition Survey Nutrition Survey Instructions Scoring Instructions Exercise - 30-day Assessment Physician Prescribed Exercise Modalities: Treadmill, Rower and SciFit Stepper Exercise - 60-day Assessment Physician Prescribed Exercise Modalities: Treadmill, Rower and SciFit Stepper Exercise - 90-day Assessment Physician Prescribed Exercise Modalities: Treadmill, Rower and SciFit Stepper Exercise - Final/Discharge Visit Date of Eval: 04/21/24 Session #:: 35 Physician Prescribed Exercise Modalities: Treadmill, Rower and SciFit Stepper Frequency: 3x/week for 12 weeks [36 sessions] Intensity: 60-80% of age predicted maximum heart rate reserve Duration: 30 - 45 minutes Current METSs:: 7.6 Target Heart Rate:: 117-132 Current RPE:: 8-10 Maximum Heart Rate:: 127 Resting Blood Pressure: 138/80 Maximum Exercise Blood Pressure: 142/86 EKG Type: NSR with occas multifocal PVC's, interpolated PVC's vs PJC's, rare PAC Outcomes & Goals Goals:: Verbalizes understanding of THR, RPE & goal METS by session 6, Documents in home exercise log/reports 30 min aerobic 5 day/wk by DC, Demonstrates accurate pulse taking by DC and Other additional outcome/goals: see below Intervention & Plan Exercise Program Goals: Instruct on personal THR & RPE, Instruct on MET level & personal MET goal, Show patient to take own pulse /validate performance until accurate, Instruct on home exercise and Other additional plan/int 30-day Reassessments 30 day Reassessments:: Met Physical Activity Home Exercise Physical Activity - Home Exercise: Safe Exercise, Warm-up, Self-monitoring, Cool-Down, Home Exercise > 30 min Daily and Sitting Time <3 hours/daily Outcomes & Goals Outcomes/Goals: Demonstrates correct Warm-up/exercise Cool-Down (S3) if = 2.5 METs, Verbalizes symptoms of exercise intolerance by Session 3 (S3), Demonstrate safe equipment use (S3) & follows exercise prescrition (6) and Other: See below Intervention & Plan Plan/Intervention: Instruct warm-up & cool-down if exercising at > 2 METs, Instruct on symptoms of exercise intolerance & actions to take, Instruct & mon itor on saf, Assess intial functional capacity & safety risk and Other See below 30-day Reassessments 30 day Reassessments:: Met Nutrition - 30-Day Assessment Weight Mgt (Other Care) Height: 6 ft Weight:: 203 lb BMI: 27.5 Nutrition - 60-Day Assessment Weight Mgt (Other Care) Height: 6 ft Weight:: 203 lb BMI: 27.5 Core - Final Assessment Visit Date of Eval: 04/21/24 Session #:: 35 Medication Compliance Preventative Medication(s):: Aspirin and Statin/lipid H/O mental health issues: depression, anxiety, or addiction?: No Doesn?t believe in the benefits of treatment?: No Believes medications are unnecessary or harmful?: No Has a concern about medication side effects?: No Expresses concern over the cost of medications?: No Outcomes/Goals: Verbalizes medications,desired effect & common side effects @ DC, Pt self-reports following medication regimen, Keeps card in wallet w/medications listed by DC and Other additional outcome/goals: Interventions/plans: Instruct on medication effects & side effects, Review medication list w/patient every two weeks, Instruct importance of taking meds as ordered & assist problem solving and Other additional 30-day Reassessments:: Met Tobacco Use Tobacco Use: Non-smoker Hypertension Hypertension Diagnosis:: Hypertension ICD-10 I10 Resting Blood Pressure:: 138/80 [place] [employer] Hypertension Guidelines Peak Exercise Blood Pressure:: 142/86 Outcomes/Goals: Able to verbalize/achieve optimal blood pressure <130/80, Incorporates diet changes & exercise for blood pressure control by DC and Other additional outcomes/goals Interventions/plan: Instruct on optimal blood pressure, hypertension & medications, Instruct on effects of sodium, alcohol, stress, exercise &hypertension and Other additional plan/interventions 30 day Reassessments:: Met Tobacco Cessation Referral Smoking Cessation Referral:: No Individual Education/Counseling:: No Education Schedule Given:: Yes Core - 60-Day Assessment Hypertension Resting Blood Pressure:: 138/80 [place] [employer] Hypertension Guidelines Psychosocial - 30-Day Assess Target Goals Target Goals Psychosocial - 60-Day Assess Target Goals Target Goals Psychosocial - 90-Day Assess Target Goals Target Goals Psychosocial - Final Assessmen VIsit Date of Eval: 04/21/24 Session #:: 35 History of previous Mental disease:: No Target Goals Target Goals Outcomes/Goals: See list Psychosocial Outcomes/Goals:: ID's personal stressors & 2 strategies to manage stress by discharge and Other Additional outcome/goals: Intervention/Plan: See List Interventions/Plan:: Assess stressors,coping strategies & signs of derpression on admission, Instruct/assist pt to develop coping & personal stress Mgt strategies, Refer to Behavioral Health if appropriate, Refer to Physician if appropriate, Instruct patient to recognize signs & symptoms of depression, Instruct patient to recog and Other additional plan/intervention 30-day Reassessments: 30 day Reassessments:: Met Nutrition - 90-Day Assessment Weight Mgt (Other Care) Height: 6 ft Weight:: 203 lb BMI: 27.5 Nutrition - Final Assessment Program Goals Patient has diagnosis of Hyperlipidemia (ICD E78)?: Yes Visit Date of Assessment:: 04/21/24 Session #:: 35 Cholesterol/Lipids (Other Core Measures) Determine presence & major risk factors that modify LDL goal: Hypertension or hypertensive medication, Low HDL cholesterol <40 mg/dL*, Family history of premature CHD in Male < 55 years: female <65 yearsFa and Age men > 45 years; women >/= 55 years Outcomes/Goals: Pt IDs own risk factors & lifestyle modifications by Session 10, Verbalizes symptoms of angina & response by session 3., Pt independently manages and Other Additional Outcomes/Goals: Intervention/Plan: Advocate for lipid panel cholesterol medication if applicable, Instruct on personal lipid levels & lipid goals/NCEP guidelines, Instruct on cholesterol and Other additional plan/int 30-day Reassessments:: Met Weight Mgt (Other Care) Height: 6 ft Weight:: 203 lb BMI: 27.5 Diagnosis Overweight/Obesity BMI> 30% ICD-10 E66: No Diagnosis High BMI/Morbid Obesity BMI> 35% ICD-10 Z68: No Outcomes/Goals: Pt sets, maintains & shows weight loss goal & trend during rehab and Other additional outcomes/goals Intervention/Plan: Instruct on ideal BMI & set weight loss goal w/patient, Assist pt to ID & incorporate diet changes for weight loss by S9, Refer to Structured Weight Loss program as appropriate, Encourage goal of using 250- 300dcal per session for weight loss and Other additional plan/interventions 30 day Reassessments:: Met Healthy Eating Habits Will attend diet classes:: Yes Outcomes/Goals:: Consume diet rich in vegs,fruits,whole grain/high fiber,fish,lean meat, Limit sat/trans fats,cholesterol & added salts & sugars and Other additional outcome/goals: 30-day Reassessments:: Met Education Gave educational materials for:: Signs & symptoms of hypoglycemia, Signs & symptoms of hyperglycemia, Relate diabetes to coronary artery disease and Healthy eating
[2024-04-21 11:43] VITALS: BP 138/80
[2024-04-21 11:50] VITALS: BP 138/80; BMI 27.5
== END 2024-05-03 23:59 ==
LOC: CR 08:00
PROVIDERS: PCP Family Medicine; Referring Provider Internal Medicine Cardiovascular Disease; Visit Provider Internal Medicine Cardiovascular Disease
DX: Z98.890 Other specified postprocedural states (principal); Z86.79 Personal history of other diseases of the circulatory system; Z95.828 Presence of other vascular implants and grafts
CPT/HCPCS: 93798

== ENCOUNTER → 2024-05-01 | Outpatient (CLI) | payer OTHER, SELFPAY ==
[2024-02-18 05:09] VITALS: BMI 27.2
[2024-04-21 11:50] VITALS: BMI 27.5
--- NOTE | 2024-05-01 07:26 | CDU_ITS ---
Reason For Study: VISUAL DISTURBANCE, CVA/TIA Rt. Velocities/BP Lt. Velocities/BP Prox CCA 86.3/16.3 cm/sec. Prox CCA 125.8/30.9 cm/sec. Mid CCA 74.0/17.3 cm/sec. Mid CCA 93.0/18.2 cm/sec. Dist CCA 84.4/20.1 cm/sec. Dist CCA 68.8/19.3 cm/sec. Prox ICA 92.0/14.6 cm/sec. Prox ICA 67.7/16.0 cm/sec. Mid ICA 53.9/18.3 cm/sec. Mid ICA 83.1/25.9 cm/sec. Dist ICA 50.2/17.1 cm/sec. Dist ICA 87.5/33.6 cm/sec. Rt. ICA/CCA = 92.0/74.0=1.2. Lt. ICA/CCA = 87.5/93.0=0.9. Prox ECA 130.8/15.7 cm/sec. Prox ECA 106.2/17.1 cm/sec. Rt. Vert. 47.1/18.8 cm/sec. Lt. Vert. 43.8/13.9 cm/sec. Right Extracranial There is homogeneous, smooth atherosclerotic plaque noted in the right common carotid artery. There is intimal thickening but no significant atherosclerotic plaque noted in the right internal carotid artery. There is no significant atherosclerotic plaque noted in the right external carotid artery. The right external carotid artery is tortuous. Antegrade flow is noted in the right vertebral artery. Left Extracranial There is homogeneous, smooth atherosclerotic plaque noted in the left common carotid artery. There is intimal thickening but no significant atherosclerotic plaque noted in the left internal carotid artery. The left external carotid artery is not well visualized. The left external carotid artery is tortuous. Antegrade flow is noted in the left vertebral artery. Procedure Carotid Duplex 12142. This is a Carotid Duplex examination using B-mode, color flow and specral Doppler. Exam performed in department. VL/Carotid Duplex Ultrasound Interpretation Summary Normal right extracranial internal carotid. Normal left extracranial internal carotid. Patent and antegrade vertebrals bilaterally. Ordering Physician: Chilango Welsh Referring Physician: Chilango Farias Performed By: Kirsty Hurst, BRIDGER, RVT
== END | disposition home or self-care (01) ==
PROVIDERS: PCP Family Medicine; Referring Provider Nurse Practitioner Family; Visit Provider Nurse Practitioner Family
DX: Z86.73 Personal history of transient ischemic attack (TIA), and cerebral infarction without residual deficits (principal)
CPT/HCPCS: 93225; 93226; 93880

== ENCOUNTER → 2024-06-09 | Outpatient (CLI) | payer OTHER, SELFPAY ==
[2024-04-21 11:50] VITALS: BMI 27.5
--- NOTE | 2024-06-09 08:06 | ECHOL_ITS ---
Version 2 Reason For Study: MURMUR Procedure This was a limited 2D transthoracic echocardiogram. Myocardial strain analysis was performed in this exam to aid in the assessment of cardiac function. Exam performed in department. Left Ventricle Normal LV size. Left ventricular systolic function is lower limits of normal. The left ventricular ejection fraction is 50 %. Stage 1 diastolic dysfunction. Post operative septal motion. Right Ventricle Normal RV size. Normal systolic function. Atria The left atrium is mildly enlarged. The right atrium is mildly enlarged. Mitral Valve Normal mitral valve. Mild (1+) eccentric mitral valve insufficiency. Tricuspid Valve Normal tricuspid valve. Mild tricuspid valve insufficiency. Pulmonary artery systolic pressure is 22 mmHg. Aortic Valve Trisinus/trileaflet aortic valve. Mild (1+) aortic valve insufficiency. Pulmonic Valve Normal pulmonic valve. Trivial pulmonic valve insufficiency. Great Vessels Normal aortic root. Aortic root sinus is mildly dilated at 4.0. The pulmonary artery is normal size. Inferior vena cava collapse with respiration. Pericardium/Pleural No pericardial effusion. MMode/2D Measurements & Calculations LVIDd: 5.2 cm IVSd: 1.1 cm LVOT diam: 2.3 cm LVIDs: 3.7 cm LVPWd: 1.0 cm LVOT area: 4.1 cm2 RVDd: 4.3 cm FS: 27.7 % asc Aorta Diam: 3.5 cm LAV(MOD-bp): 68.8 ml LVAd ap4: 36.4 cm2 LAV(MOD-bp) Indexed: 31.6 ml/m2 LVLd ap4: 8.3 cm LAV(MOD-sp2): 66.2 ml EDV(MOD-sp4): 133.8 ml LAV(MOD-sp4): 60.4 ml EDV(sp4-el): 135.9 ml LVAs ap4: 24.3 cm2 LVLs ap4: 7.4 cm ESV(MOD-sp4): 66.2 ml ESV(sp4-el): 67.5 ml EF(MOD-sp4): 50.5 % EF(sp4-el): 50.3 % LVAd ap2: 37.3 cm2 SV(MOD-sp4): 67.6 ml SV(MOD-sp2): 65.6 ml LVLd ap2: 9.0 cm EDV(MOD-sp2): 127.4 ml EDV(sp2-el): 131.6 ml LVAs ap2: 23.5 cm2 LVLs ap2: 7.8 cm ESV(MOD-sp2): 61.7 ml ESV(sp2-el): 60.0 ml EF(MOD-sp2): 51.5 % SV(sp4-el): 68.4 ml Ao sinus diam: 4.[address] Junction: 3.3 cm LA dimension(2D): 4.7 cm LA A4 area: 22.2 cm2 RA A4 area: 23.1 cm2 TAPSE: 1.2 cm Time Measurements MV dec time: 0.38 sec Doppler Measurements & Calculations MV E max torsten: 51.9 cm/sec Lat Peak E' Torsten: 10.2 cm/sec Med Peak E' Torsten: 5.9 cm/sec MV A max torsten: 52.3 cm/sec E/E' lat: 5.1 E/E' med: 8.9 MV E/A: 0.99 MV dec slope: 138.4 cm/sec2 Ao V2 max: 98.1 cm/sec AI max torsten: 324.9 cm/sec Ao max P.8 mmHg AI max P.2 mmHg Ao V2 mean: 75.3 cm/sec AI dec slope: 174.4 cm/sec2 Ao mean P.5 mmHg AI P1/2t: 545.7 msec Ao V2 VTI: 20.6 cm AV (velocity ratio): 0.88 RIZWANA(I,D): 3.6 cm2 RIZWANA(V,D): 3.3 cm2 LV V1 max: 78.9 cm/sec SV(LVOT): 75.1 ml TR max torsten: 220.7 cm/sec LV V1 max P.5 mmHg TR max P.5 mmHg LV V1 mean P.5 mmHg LV V1 mean: 57.0 cm/sec LV V1 VTI: 18.2 cm ECHO/Echo, Limited Study Interpretation Summary Normal LV size. Left ventricular systolic function is lower limits of normal. The left ventricular ejection fraction is 50 %. Stage 1 diastolic dysfunction. Mild biatrial enlargement. Aortic valve status post repair with trivial to mild regurgitation. The global longitudinal strain is borderline abnormal. The global longitudinal strain = -16.7% (abnormal). Ordering Physician: Richard Hogan Referring Physician: Chilango Welsh Performed By: Maria Eugenia Pollock RDCS
== END | disposition home or self-care (01) ==
PROVIDERS: PCP Family Medicine; Referring Provider Internal Medicine Cardiovascular Disease; Visit Provider Internal Medicine Cardiovascular Disease
DX: R01.1 Cardiac murmur, unspecified (principal); Z98.890 Other specified postprocedural states
CPT/HCPCS: 93308

== ENCOUNTER → 2024-08-05 | Outpatient (CLI) | payer OTHER, SELFPAY ==
[2024-04-21 11:50] VITALS: BMI 27.5
[2024-08-05 17:59] LABS: Absolute Lymphocyte Count 1.49 X10^3/uL (0.83-4.51); Absolute Neutrophil Count 6.7 X10^3/uL (2.0-7.7); Basophil# 0.09 X10^3/uL; Eosinophil# 0.27 X10^3/uL; Eosinophils% 2.9 % (0-5); Hematocrit 45.6 % (40-54); Hemoglobin 14.5 g/dL (13.0-16.5); Lymphocyte # 1.49 X10^3/ul (0.83-4.51); Lymphocyte % 15.9 % (19-41); Mean Corp Hgb Conc 31.8 g/dL (32-36); Mean Platelet Vol. 10.1 fl (6.2-12.0); Monocyte# 0.76 X10^3/uL; Monocyte% 8.1 % (0-10); NRBC Flagged by Analyzer 0 % (0-5); Neutrophil % 71.4 % (47-70); Platelet Count 376 K/mm3 (150-450); RBC Distribution Width CV 12.3 % (11.6-14.6); RBC Distribution Width SD 39.8 fl (35.1-43.9); Red Blood Count 5.18 M/mm3 (4.6-6.2); White Blood Count 9.4 K/mm3 (4.4-11.0)
== END | disposition home or self-care (01) ==
LOC: MFPLAB 12:05
PROVIDERS: PCP Family Medicine; Referring Provider Family Medicine; Visit Provider Family Medicine
DX: I10 Essential (primary) hypertension (principal)
CPT/HCPCS: 36415; 80053; 80061; 82043; 83735; 84443; 85025

== ENCOUNTER → 2024-08-06 | Outpatient (CLI) | payer OTHER, SELFPAY ==
[2024-04-21 11:50] VITALS: BMI 27.5
[2024-08-06 15:59] LABS: ALB/GLOB Ratio 0.9 RATIO (0.9-2.4); AST(SGOT) 30 U/L (15-37); Alanine Aminotransfer ALT/SGPT 43 U/L (16-61); Albumin, Serum 3.5 g/dL (3.2-5.0); Alkaline Phosphatase 80 U/L (45-117); Anion Gap 6 (5-15); BUN 16 mg/dL (7-18); Calcium,Total 9.2 mg/dL (8.5-10.1); Chloride 107 mmol/L (98-107); Cholesterol 117 mg/dL (200); Creatinine, Serum 1.07 mg/dL (0.70-1.30); EST Glomerular Filtration Rate 74 mL/min (>60); Est Glom Filt Rate - Afr Amer 89 mL/min (>60); Globulin 3.9 g/dL (2.2-4.2); Glucose 85 mg/dL (74-106); High Density Lipoprotein 40 mg/dL; Magnesium 2.5 mg/dL (1.6-2.6); Potassium 4.1 mmol/L (3.5-5.1); Protein, Total 7.4 g/dL (6.4-8.2); Sodium Level 140 mmol/L (136-145); Thyroid Stim Hormone (TSH) 0.537 uIU/mL (0.358-3.740); Triglycerides 63 mg/dL; Very Low Density Lipoprotein 13 mg/dL (5-40)
== END | disposition home or self-care (01) ==
LOC: MFPLAB 11:33
PROVIDERS: PCP Family Medicine; Referring Provider Family Medicine; Visit Provider Family Medicine
DX: I10 Essential (primary) hypertension (principal); E78.5 Hyperlipidemia, unspecified
CPT/HCPCS: 80053; 80061; 83735; 84443

== ENCOUNTER → 2024-08-12 | Outpatient (CLI) | payer OTHER, SELFPAY ==
[2024-04-21 11:50] VITALS: BMI 27.5
--- NOTE | 2024-08-12 12:21 | US_ITS ---
STUDY: THYROID ULTRASOUND REASON FOR EXAM: Male, 63 years old. Thyroid nodule. TECHNIQUE: Ultrasound evaluation of the thyroid was performed with real-time and static michelle-scale imaging. COMPARISON: Comparison is made with prior study dated August 19, 2022. FINDINGS: RIGHT LOBE: The right lobe of the thyroid gland is enlarged and measures 5.4 cm x 1.8 cm x 2.8 cm. There is a homogeneous echotexture. Once again, there are 3 subcentimeter hypoechoic nodules throughout the right lobe. These are essentially unchanged. LEFT LOBE: The left lobe of the thyroid gland measures 4.5 cm x 1.9 sided by 2 cm. There is a homogeneous echotexture. There are no demonstrated solid, cystic or complex lesions. ISTHMUS: The isthmus is enlarged and measures 7 mm. Incidental note is made of a 1.1 cm x 0.6 cm x 0.4 cm right cervical lymph node. US/Thyroid IMPRESSION: Stable enlargement of the right lobe of the thyroid with the 3 stable nodules within. Electronically Signed: Yimi Jensen MD at 13:03 EST ,
== END | disposition home or self-care (01) ==
LOC: US 12:21
PROVIDERS: PCP Family Medicine; Referring Provider Family Medicine; Visit Provider Family Medicine
DX: E04.1 Nontoxic single thyroid nodule (principal)
CPT/HCPCS: 76536

== ENCOUNTER → 2024-09-29 | Outpatient (CLI) | payer MEDICARE, OTHER, SELFPAY ==
[2024-04-21 11:50] VITALS: BMI 27.5
--- NOTE | 2024-09-29 07:24 | CT_ITS ---
ACR Level 3 findings have been noted. An addendum which confirms receipt of the report will follow. EXAM: CT CHEST WITH INTRAVENOUS CONTRAST CLINICAL INDICATION: PULMONARY NODULE TECHNIQUE: Helically acquired images were obtained of the chest with intravenous contrast. CTDIvol = ( 17.08 ) mGy, DLP = ( 546.57 ) mGycm This CT exam was performed using one or more of the following dose reduction techniques: automated exposure control, adjustment of the mA and/or kV according to patient size, and/or use of iterative reconstruction technique. CONTRAST: IV 100mL [id number] COMPARISON: No relevant prior studies available. FINDINGS: LUNGS AND PLEURAL SPACES: Circumscribed noncalcified the lateral segment right middle lobe subpleural nodule anterolaterally measuring 6 mm (average). No calcifications associated. No pneumothorax. HEART: See below. MEDIASTINUM: Unremarkable. No mediastinal or hilar adenopathy. Esophagus is unremarkable. No hiatal hernia. THYROID: Unremarkable. No thyroid lesions. BONES/JOINTS: Moderate multivessel calcific coronary arthrosclerosis. No cardiomegaly or pericardial effusion. No suspicious lytic or blastic abnormality. VASCULATURE: Unremarkable. Thoracic aorta is non-dilated. No thoracic aortic dissection. No obvious central pulmonary embolism although this study was not performed with the pulmonary embolism protocol. ABDOMEN: 1.9 cm left adrenal lipid rich adenoma. CT/Chest WITH Contrast IMPRESSION: Indeterminate 6 mm pulmonary nodule at the right middle lobe. Given absence of any prior studies for comparison/to document stability, recommend follow-up CT in 6 months to document stability. [employer] was utilized to assist in identifying pertinent positive findings. Electronically Signed: Soy Hatch MD at 21:00 EST ,
== END | disposition home or self-care (01) ==
PROVIDERS: PCP Family Medicine; Referring Provider Family Medicine; Visit Provider Family Medicine
DX: R91.1 Solitary pulmonary nodule (principal)
CPT/HCPCS: 71260; Q9967

== ENCOUNTER → 2024-10-07 | Outpatient (CLI) | payer MEDICARE, OTHER, SELFPAY ==
[2024-04-21 11:50] VITALS: BMI 27.5
--- NOTE | 2024-10-07 07:21 | MRI_ITS ---
PROCEDURE: MRI ABD WITH AND W/O CONTRAST TECHNIQUE: Multiplanar, multisequence MRI of the upper abdomen without and with intravenous gadolinium-based contrast. CONTRAST: COMPARISON: None. FINDINGS: Liver: Partially visualized. No suspicious lesions. Biliary: Partially visualized. Grossly unremarkable. Pancreas: No mass or ductal dilation. Spleen: Partially visualized. Adrenals: 1.4 cm left adrenal mass with loss of signal on in and out of phase, consistent with adenoma. Kidneys: There is a 2.5 cm heterogeneous T1 dark and T2 bright nonenhancing left exophytic cystic lesion, likely representing benign cysts. Small benign right renal cysts.. Peritoneum / Retroperitoneum: No ascites. Lymph Nodes: No upper abdominal lymphadenopathy. Major Vessels: The abdominal aorta and IVC are unremarkable. The portal and hepatic veins are patent. Bones: Bone marrow signal is unremarkable. MRI/MRI Abd WITH and W/O Contrast IMPRESSION: Benign-appearing renal cysts as described above. 1.4 cm left adrenal adenoma. Reading Location: [facility]
[2024-10-07 07:57] LABS: CREATININE FINGERSTICK < 1.0 mg/dL (0.70-1.30); EGFR FINGERSTICK > 60.0000 mL/min (>60)
== END | disposition home or self-care (01) ==
LOC: MRI 07:13
PROVIDERS: PCP Family Medicine; Referring Provider Family Medicine; Visit Provider Family Medicine
DX: N28.89 Other specified disorders of kidney and ureter (principal)
CPT/HCPCS: 74183; A9575

== ENCOUNTER → 2025-02-04 | Outpatient (CLI) | payer MEDICARE, OTHER, SELFPAY ==
[2024-04-21 11:50] VITALS: BMI 27.5
[2025-02-04 10:17] LABS: Absolute Lymphocyte Count 1.58 X10^3/uL (0.83-4.51); Absolute Neutrophil Count 5.5 X10^3/uL (2.0-7.7); Basophil# 0.06 X10^3/uL; Basophil% 0.7 % (0-1); Eosinophil# 0.16 X10^3/uL; Hemoglobin 14.3 g/dL (13.0-16.5); Lymphocyte # 1.58 X10^3/ul (0.83-4.51); Lymphocyte % 19.4 % (19-41); Mean Corp Hgb Conc 32.5 g/dL (32-36); Mean Corpuscular Hgb 28.9 pg (27.0-32.0); Mean Corpuscular Volume 88.9 fL (80-94); Mean Platelet Vol. 9.5 fl (6.2-12.0); Monocyte# 0.87 X10^3/uL; Monocyte% 10.7 % (0-10); NRBC Flagged by Analyzer 0 % (0-5); Neutrophil # 5.45 X10^3/uL (2.7-7.7); Neutrophil % 66.7 % (47-70); Platelet Count 278 K/mm3 (150-450); RBC Distribution Width SD 39.2 fl (35.1-43.9); Red Blood Count 4.95 M/mm3 (4.6-6.2); White Blood Count 8.2 K/mm3 (4.4-11.0)
[2025-02-04 11:11] LABS: ALB/GLOB Ratio 1.5 RATIO (0.9-2.4); AST(SGOT) 24 U/L (<=37); Alanine Aminotransfer ALT/SGPT 17 U/L (<=46); Alkaline Phosphatase 59 U/L (40-129); Anion Gap 12 (5-15); BUN 18 mg/dL (4-19); BUN/Creat Ratio 18.8 RATIO (10-20); Carbon Dioxide 22.9 mmol/L (21.0-32.0); Chloride 104 mmol/L (98-108); Cholesterol 122 mg/dL (<=200); Creatinine, Serum 0.94 mg/dL (0.70-1.20); EST Glomerular Filtration Rate 90 (>60); Globulin 2.6 g/dL (2.2-4.2); Glucose 104 mg/dL (70-99); High Density Lipoprotein 51 mg/dL; Low Density Lipoprotein Calc. 60 mg/dL; PSA,Total - Annual Screen 0.68 ng/mL (0.02-4.00); Potassium 4.1 mmol/L (3.3-5.1); Protein, Total 6.6 g/dL (5.9-8.4); Sodium Level 139 mmol/L (133-145); Total Bilirubin 0.38 mg/dL (0.00-1.30); Triglycerides 55 mg/dL; Very Low Density Lipoprotein 11 mg/dL (5-40); cholesterol:hdl ratio screen 2.37
[2025-02-04 16:45] LABS: Hemoglobin A1c 5.7 % (<=5.6)
== END | disposition home or self-care (01) ==
LOC: MFPLAB 09:03
PROVIDERS: PCP Family Medicine; Referring Provider Family Medicine; Visit Provider Family Medicine
DX: E78.5 Hyperlipidemia, unspecified (principal); R73.09 Other abnormal glucose; Z12.5 Encounter for screening for malignant neoplasm of prostate
CPT/HCPCS: 36415; 80053; 80061; 83036; 84153; 85025; G0103

== ENCOUNTER → 2025-05-05 | Outpatient (CLI) | payer MEDICARE, OTHER, SELFPAY ==
[2024-04-21 11:50] VITALS: BMI 27.5
[2025-05-05 14:20] LABS: Mucous, Urine 0 SEEN /hpf (<or=2+); Red Blood Cells-Urine 0 SEEN /hpf (0-5); Squamous Epithelial Cells - UA 0 SEEN /hpf (0-5)
[2025-05-05 18:14] LABS: Hematocrit 41.7 % (40-54); Hemoglobin 13.9 g/dL (13.0-16.5); Immature Granulocytes Count 0.030 X10^3/uL (0.0-0.0); Mean Corp Hgb Conc 33.3 g/dL (32-36); Mean Corpuscular Volume 87.4 fL (80-94); Mean Platelet Vol. 10.1 fl (6.2-12.0); NRBC Flagged by Analyzer 0 % (0-5); Platelet Count 305 K/mm3 (150-450); RBC Distribution Width CV 12.6 % (11.6-14.6); RBC Distribution Width SD 39.8 fl (35.1-43.9); Red Blood Count 4.77 M/mm3 (4.6-6.2); White Blood Count 8.1 K/mm3 (4.4-11.0)
[2025-05-05 18:27] LABS: AST(SGOT) 24 U/L (<=37); Alanine Aminotransfer ALT/SGPT 21 U/L (<=46); Albumin, Serum 4.1 g/dL (3.4-4.8); Alkaline Phosphatase 57 U/L (40-129); Anion Gap 10 (5-15); BUN 25 mg/dL (4-19); BUN/Creat Ratio 23.1 RATIO (10-20); Calcium,Total 9.3 mg/dL (7.6-11.0); Carbon Dioxide 24.8 mmol/L (21.0-32.0); Chloride 104 mmol/L (98-108); Cholesterol 122 mg/dL (<=200); Globulin 2.5 g/dL (2.2-4.2); Glucose 101 mg/dL (70-99); Low Density Lipoprotein Calc. 53 mg/dL; Magnesium 2.0 mg/dL (1.5-2.2); Potassium 4.3 mmol/L (3.3-5.1); Triglycerides 100 mg/dL; Very Low Density Lipoprotein 20 mg/dL (5-40); cholesterol:hdl ratio screen 2.48
[2025-05-05 19:48] LABS: Color, Urine Yellow (Yellow); Glucose, Dipstick Normal (Normal); Ketone-Dipstick Negative (Negative); Leukocyte Esterase-Dipstick Negative /ul (Negative); Nitrite-Dipstick Negative (Negative); Occult Blood-Urine Negative /ul (Negative); Protein-Dipstick 15 mg/dl (Negative); Specific Gravity, Urine 1.020 (1.002-1.030); Urine Bilirubin Dipstick Negative (Negative)
--- OUTSIDE RECORDS SUMMARY | 2025-05-05 23:14 | XMS RPT_ITS | CCD ---
Author Organization [facility] Care Team Providers Care Application Systems Engineer Name Role Phone Asaf TORRES Unavailable Unavailable CHILANGO PATINO Unavailable Unavailable Nina Torres Unavailable Unavailable Nina Torres Unavailable Unavailable Chilango Patino Primary Care Provider JUAN MARS Admitting Unavailable JUAN MARS Attending Unavailable CHILANGO PATINO Primary Care Unavailable Richard Guzman [phone] Consulting Unavailable EUNICE GOLDSTEIN Consulting Unavailable CHILANGO PATINO Consulting Unavailable Chilango Patino Primary Care Provider Chilango Patino MD Primary Care Provider FLYNN TORRES Referring Unavailable FLYNN TORRES Admitting Unavailable CHILANGO PATINO Primary Care Unavailable CHILANGO PATINO Primary Care Unavailable FLYNN TORRES Referring Unavailable FLYNN TORRES Admitting Unavailable Unavailable Primary Care Provider Unavailjayashree e No, Physician Primary Care Provider UnavailChilango Hayden MD Primary Care Provider Chilango Welsh MD Primary Care Provider Chilango Welsh MD Primary Care Provider Free, Text Entry Unavailable Unavailable Maya Brewer Unavailable Unavailable Bety Tanner Unavailable Unavailable Chilango Welsh MD Primary Care Provider Dr. Chilango Welsh Primary Care Provider [phone] Dr. Mathew Gonzalez Emergency Provider [phone] Nora Rivera Admit Provider Dr. Nora Rivera Attending Provider Dr. Nora Rivera Other Provider Dr. Alfred Gutierrez Other Provider Dr. Richard Hogan Attending Provider Dr. Alfred Gutierrez Attending Provider Dr. Osmin Estrella Other Provider Dr. Osmin Estrella Attending Provider Blaise OVIEDO, Chilango Primary Care Provider Asaf Torres MD Unavailable Chilango Welsh MD Primary Care Provider Asaf Torres MD Unavailable Ani Ríos MD (Formerly [facility]) Unavailable Edison AVITIA, Martín Unavailable GAGE RUBIN Attending Unavailable Ani Ríos MD (Formerly [facility]) Unavailable Edison AVITIA Martín Unavailable Dr. Chilango Welsh Primary Care Provider [phone] Dr. Mathew Gonzalez Emergency Provider Dr. Nora Rivera Admit Provider Dr. Nora Rivera Attending Provider Dr. Nora Rivera Other Provider Dr. Alfred Gutierrez Other Provider Dr. Richard Hogan Attending Provider Dr. Alfred Gutierrez Attending Provider Dr. Osmin Estrella Other Provider Dr. Osmin Estrella Attending Provider Kate Murphy Attending Provider Unavailable Dr. Chilango Welsh Referring Provider Chilango Welsh MD Primary Care Provider Chilango Patino MD Primary Care Provider Edison AVITIA, Martín Unavailable SHELLIE CERON Attending Unavaila ble CHILANGO WELSH Primary Care Unavailable NATHAN MEDEL Attending Unavailable CHILANGO WELSH Primary Care Unavailable Chilango Welsh MD Primary Care Provider [phone] Edison AVITIA, Martín Unavailable NILO AVILA II Attending Unavailabl e SELF Referring Unavailable CHILANGO WELSH Primary Care Unavailable TAMRA HARO Attending Unavailable TAMRA HARO Referring Unavailable CHILANGO WELSH Primary Care Unavailable CHILANGO WELSH Primary Care Unavailable NORA ROSA Attending Unavailable NORA ROSA Referring Unavailable CHILANGO WELSH Primary Care Unavailable SELF, SELF Referring Unavailable ELSA CHUNG Attending Unavailable CHILANGO WELSH Primary Care Unavailable ELSA CHUNG Referring Unavailable ALVINA FANG Attending Unavailable CHILANGO WELSH Primary Care Unavailable SELF, SELF Referring Unavailable ELSA CHUNG Attending Unavailable SELF, SELF Referring Unavailable ELSA CHUNG Attending Unavailable CHILANGO WELSH Primary Care Unavailable NORA ROSA Attending Unavailable NORA ROSA Referring Unavailable CHILANGO WELSH Primary Care Unavailable NORA ROSA Attending Unavailable NORA ROSA L Referring Unavailable CHILANGO WELSH Primary Care Unavailable LUZ ELENA CERVANTES Referring Unavailable CHILANGO WELSH Primary Care Unavailable ANI RÍOS (CHILANGO) Attending Unavail able MAVIS MANZO Attending Unavailable CHILANGO WELSH Primary Care Unavailable SELF, SELF Referring Unavailable MAVIS MANZO Attending Unavailable CHILANGO WELSH Primary Care Unavailable SELF, SELF Referring Unavailable Blaise OVIEDO, Chilango Patrick Primary Care Provider Nina TORRES Referring Unavailable CHILANGO WELSH Primary Care UnavailDr. Chilango Corona MD Primary Care Provider Dr. Chilango Welsh MD Attending Provider Dr. Chilango Welsh MD Referring Provider Nina TORRES Attending Unavailable Nina TORRES Attending Unavailable Dr. Richard Hogan MD Attending Provider Chilango Welsh Primary Care Unavailable Chilango Welsh Attending Unavailable Chilango Welsh Referring Unavailable SchChilango lizama Primary Care Unavailable Chilango Welsh Referring Unavailable Chilango Welsh Attending Unavailable Chilango Welsh Attending Unavailable Chilango Welsh Referring Unavailable Chilango Welsh Primary Care Unavailable Richard Hogan Attending Unavailable Richard Hogan Referring Unavailable Chilango Welsh Primary Care Unavailable Chilango Welsh Primary Care Unavailable Richard Hogan Attending Unavailable Chilango Farias NP Referring Unavailable Thomas Knight Attending Unavailable Chilango Welsh Primary Care Unavailable Chilango Welsh Referring Unavailable Chilango Welsh Referring Unavailable Chilango Welsh Primary Care Unavailable Richard Hogan Attending Unavailable Chilango Welsh Primary Care Unavailable Puma Summers Attending Unavailable Chilango Welsh Primary Care Unavailable Chilango Welsh Attending Unavailable Chilango Welsh Referring Unavailable Chilango eWlsh Primary Care Unavailable Chilango Welsh Attending Unavailable Chilango Welsh Referring Unavailable Chilango Farias NP Attending Unavailable Chilango Welsh Primary Care Unavailable Chilango Farias NP Referring Unavailable Chilango Welsh Primary Care Unavailable Chilango Welsh Attending Unavailable Chilango Welsh Referring Unavailable Chilango Welsh Referring Unavailable Chilango Welsh Primary Care Unavailable Richard Hogan Attending Unavailable Chilango Welsh Primary Care Unavailable Gracie Parra NP Attending Unavailable Chilango Welsh Primary Care Unavailable Richard Hogan Referring Unavailable Richard Hogan Attending Unavailable Chilango Welsh Referring Unavailable Chilango Welsh Attending Unavailable Chilango Welsh Primary Care Unavailable Chilango Welsh Primary Care Unavailable Richard Hogan Referring Unavailable Richard Hogan Attending Unavailable Chilango Welsh Primary Care Unavailable Richard Hogan Referring Unavailable Richard Hogan Attending Unavailable CHILANGO WELSH Primary Care Unavailable Asaf TORRES Attending Unavailable SCHINGABINO, CHILANGO Primary Care Unavailable Asaf TORRES Attending Unavailable SCHINGABINO, CHILANGO Primary Care Unavailable Asaf TORRES Attending Unavailable Asaf TORRES Attending Unavailable SCHINNER, CHILANGO Primary Care Unavailable SCHINNER, CHILANGO Primary Care Unavailable Asaf TORRES Attending Unavailable SCHINGABINO, CHILANGO Primary Care Unavailable Asaf TORRES Attending Unavailable Asaf TORRES Attending Unavailable Asaf TORRES Admitting Unavailable CHILANGO WELSH Primary Care Unavailable Allergies Allergy Classification Reported Allergen(s) Allergy Type Date of Onset Reaction(s) Facility (1 source) ALLERGIES NOT ON FILE; Translations: [ALLERGIES NOT ON FILE] Propensity to adverse reactions (disorder) [facility] 2 Repository Medications Current Medications Medication Drug Class(es) Dates [...] . 28 tablet 0 10/17/2021 10/24/2021 Active [id number] 200 actuat albuterol 0.09 mg/actuat metered dose inhaler (9 sources) beta2-Adrenergic Agonist Start: 07-24-2023 take 2 puff(s) by inhalation every six hours as needed for wheezing albuterol 90 mcg/actuation inhaler Inhale 2 (two) puffs every 6 (six) hours as needed for wheezing . 1 g 07/24/2023 Active amoxicillin 500 mg oral tablet [...] this medication unless otherwise directed by prescriber. Comment on above: Finish all this medi cation unless otherwise directed by prescriber. ascorbic acid 500 mg oral capsule (4 sources) Vitamin C Start: 12-03-2023 take 1 mg by mouth once daily Ascorbic Acid (Vitamin C) 500 mg capsule Active mg PO DAILY December 03, 2023 12:00am Start: 12-03-2023 take 1 mg by mouth once daily Ascorbic Acid (Vitamin C) Active MG PO DAILY December 03, 2023 12:00am aspirin 81 mg delayed release oral tablet (20 sources) Platelet Aggregation Inhibitor, Nonsteroidal Anti-inflammatory Drug Start: 11-23-2023 take 1 tablet by mouth once daily Aspirin 81 mg tablet,delayed release (DR/EC) Active 81 mg PO DAILY November 23, 2023 12:00am Start: 11-22-2023 End: 11-23-2023 take 1 tablet by mouth once daily Aspirin 325 mg tablet,delayed release (DR/EC) Discontinued 325 mg PO DAILY November 22, 2023 12:00am November 23, 2023 2:37pm Start: 11-14-2023 End: 02-17-2024 take 1 tablet by mouth once daily aspirin 325 MG tablet Take 1 (one) tablet (325 mg total) by mouth daily . 11/19/2023 Active Start: 10-20-2023 End: 11-18-2023 benoxinate hydrochloride 4 mg/ml / fluorescein sodium 3 mg/ml ophthalmic solution (3 sources) Diagnostic Dye Start: 12-31-2023 End: 01-01-2024 fluorescein-benoxinate 0.3-0.4 % 1 Drop (FLURESS) Start: 12-15-2021 End: 12-15-2021 fluorescein-benoxinate 0.25- 0.4 % 1 Drop (FLURESS) benzonatate 100 mg oral capsule (2 sources) Non-narcotic Antitussive Start: 02-21-2022 End: 03-02-2022 take 1 capsule by mouth three times daily for cough benzonatate 100 mg oral capsule ; 1 cap(s) orally 3 times a day, As Needed -for cough Quantity: 60 Refills: 0 Ordered: 21-Feb-2022 Maya Brewer Start: 21-Feb-2022 End: 02-Mar-2022 Generic Substitution Allowed Comments: May cause drowsiness. Alcohol may intensify this effect. Use care when operating dangerous machinery.Swallow whole. Do not crush. Comment on above: May cause drowsiness . Alcohol may intensify this effect. Use care when operating dangerous machinery.Swallow whole. Do not crush. carvedilol 6.25 mg oral tablet (20 sources) alpha-Adrenergic Jaime, beta-Adrenergic Jaime Start: 06-23-2024 take 1 tablet by mouth twice daily at mealtime Carvedilol 6.25 mg tablet Active 6.25 mg PO TWICE A DAY 180 June 23, 2024 1:11pm must administer with a meal/food Start: 06-09-2024 End: 06-23-2024 take 2 tablets by mouth twice daily at mealtime Carvedilol (Coreg) 3.125 mg tablet Discontinued 6.25 mg PO TWICE A DAY 60 June 09, 2024 2:43pm June 23, 2024 1:11pm must administer with a meal/food Start: 02-29-2024 End: 06-09-2024 take 1 tablet by mouth twice daily at mealtime Carvedilol (Coreg) 3.125 mg tablet Discontinued 3.125 mg PO TWICE A DAY 60 February 29, 2024 12:00am June 09, 2024 2:43pm must administer with a meal/food celecoxib 200 mg oral capsule (15 sources) Nonsteroidal Anti-inflammatory Drug Start: 10-02-2019 End: 12-15-2021 celecoxib (CELEBREX) 200 mg capsule Take 200 mg by mouth. 0 10/02/2019 12/15/2021 Discontinued (Discontinued by another Health Care Provider) End: 10-02-2019 take 1 capsule by mouth twice daily celecoxib (CELEBREX) 200 MG capsule Take 200 mg by mouth 2 (two) times a day 0 10/02/2019 Discontinued (Reorder) Comment on above: Take 200 mg by mouth . FA/mv,Ca,iron,min/ly copene/lut (MULTIVITAL ORAL) (7 sources) take 1 capsule by mouth once daily FA/mv,Ca,iron,min/ly copene/lut (MULTIVITAL ORAL) Take 1 capsule by mouth daily . Active ketorolac tromethamine 10 mg oral tablet (7 sources) Nonsteroidal Anti-inflammatory Drug, Cyclooxygenase Inhibitor Start: 08-20-20 24 take 1 tablet by mouth every six hours as needed for pain ketorolac (TORADOL) 10 mg tablet Take 1 (one) tablet (10 mg total) by mouth every 6 (six) hours as needed for pain . 20 tablet 08/20/2024 Active latanoprost 0.05 mg/ml ophthalmic solution (2 sources) Prostaglandin Analog Start: 12-26-19 25 take 1 drop(s) into the eye(s) at bedtime Latanoprost 0.005 % Solution ophthalmic solution Place 1 drop in both eyes at bedtime. Generic. 2.5 mL 3 12/25/2024 Active losartan potassium 25 mg oral tablet (15 sources) Angiotensin 2 Receptor Jaime Start: 06-09-20 take 1 tablet by mouth once daily Losartan 25 mg tablet Active 25 mg PO daily 30 June 09, 2024 12:00am meloxicam 15 mg oral tablet (1 source) Nonsteroidal Anti-inflammatory Drug Start: 03-10-20 End: 04-09-20 take 1 tablet by mouth once daily meloxicam (MOBIC) 15 MG tablet Indications: Arthritis of right hip Take 1 (one) tablet (15 mg total) by mouth daily . 30 tablet 1 03/10/2025 04/09/2025 Active MINERAL OIL/PETROLATUM,WHITE (TEARS NATURALE PM OPHTHALMIC) (1 source) End: 12-16-19 MINERAL OIL/PETROLATUM,WHITE (TEARS NATURALE PM OPHTHALMIC) Use in eyes. 0 12/15/2021 Discontinued (Discontinued by another Health Care Provider) Comment on above: Use in eyes. Multiple Vitamin (multivitamin) capsule (11 sources) take 1 capsule by mouth once daily Multiple Vitamin (multivitamin) capsule Take 1 capsule by mouth daily. Active Multivitamin preparation (2 sources) Start: 12-03-19 take 1 tablet by mouth once daily Multivitamin Active 1 TABLET PO DAILY December 03, 2023 12:00am Multivitamin tablet (2 sources) Start: 12-03-19 Multivitamin tablet Active 1 {tbl} PO DAILY December 03, 2023 12:00am omeprazole 40 mg delayed release oral capsule (2 sources) Proton Pump Inhibitor Start: 03-11-20 take 1 capsule by mouth once daily Omeprazole 40 mg capsule,delayed release(DR/EC) Active 40 mg PO daily March 11, 2025 12:00am Start: 11-21-2019 End: 12-15-2021 omeprazole (PRILOSEC) 20 mg capsule ondansetron 4 mg disintegrating oral tablet (9 sources) Serotonin-3 Receptor Antagonist Start: 08-20-2024 End: 08-27-2024 take 1 tablet by mouth every eight hours as needed for nausea ondansetron (ZOFRAN-ODT) 4 MG disintegrating tablet Dissolve 1 (one) tablet (4 mg total) on top of tongue every 8 (eight) hours as needed for nausea . 20 tablet 08/20/2024 Active Start: 11-18-2023 End: 12-02-2023 take 4 mg by mouth every eight hours as needed Start: 11-13-2023 End: 11-19-2023 phenylephrine hydrochloride 25 mg/ml ophthalmic solution (3 sources) alpha-1 Adrenergic Agonist Start: 12-31-2023 End: 01-01-2024 PHENYLephrine 2.5 % 1 Drop (AK-DILATE, ELTON-SYNEPHRINE) Start: 12-15-2021 End: 12-15-2021 PHENYLephrine 2.5 % 1 Drop ( AK-DILATE, ELTON-SYNEPHRINE) proparacaine hydrochloride 5 mg/ml ophthalmic solution (4 sources) Local Anesthetic Start: 01-21-2024 End: 01-22-2024 proparacaine 0.5 % 1 Drop (ALCAINE) Start: 12-31-2023 End: 01-01-2024 proparacaine 0.5 % 1 Drop (A LCAINE) Start: 12-15-2021 End: 12-15-2021 proparacaine 0.5 % 1 Drop (A LCAINE) Propylene glycol (5 sources) propylene glycol (SYSTANE COMPLETE OPHTHALMIC) Use in eyes as needed. Active propylene glycol (SYSTANE COMPLETE OPHTHALMIC) Use in eyes as needed. 0 Active Comment on above: Use in eyes as neede d. tamsulosin hydrochloride 0.4 mg oral capsule (1 source) alpha-Adrenergic Jaime Start: 08-20-20 End: 08-30-20 take 1 capsule by mouth once daily tamsulosin (FLOMAX) 0.4 mg capsule Take 1 (one) capsule (0.4 mg total) by mouth daily for 10 days . 10 capsule 08/20/2024 08/30/2024 Active tropicamide 10 mg/ml ophthalmic solution (3 sources) Anticholinergic Start: 12-31-19 End: 01-01-20 tropicamide 1 % 1 Drop (MYDRIACYL) Start: 12-15-2021 End: 12-15-2021 tropicamide 1 % 1 Drop (MYDR IACYL) Vitamin B Complex tablet (2 sources) Start: 02-19-2024 Vitamin B Comp izzy tablet Active 1 {tbl} PO DAILY February 19, 2024 12:00am vitamin b12 0.1 mg oral tablet (16 sources) Vitamin B12 take 1 tablet by mouth once daily cyanocobalamin (B-12) 100 MCG tablet Take 1 (one) tablet (100 mcg total) by mouth daily . Active Completed/Discontinued Medications Medication Drug Class(es) Dates Sig (Normalized) Sig (Original) acetaminophen 325 mg oral tablet (4 sources) Start: 11-18-2023 End: 12-10-2023 take 2 tablets by mouth every four hours as needed Acetaminophen 325 MG tablet Take 2 tablets by mouth every 4 hours as needed. 11/18/2023 12/10/2023 Discontinued (Medication Reconciliation (suppress cancel msg)) Start: 11-17-2023 End: 11-19-2023 take 650 mg by mouth every four hours as needed Start: 10-19-2023 End: 10-23-2023 take 1 tablet by mouth every six hours as needed 650 mg, Oral, EVERY 6 HOURS NEEDED, Starting on Sun10/19/23 at 2247, Until Sun10/23/23 at 1331, Mild Pain, Oral temp > 100.4 F, Maximum dose of acetaminophen is 4000 mg from all sources in 24 hours. aluminum hydroxide 40 mg/ml / magnesium hydroxide 40 mg/ml / simethicone 4 mg/ml oral suspension (1 source) Start: 10-19-2023 End: 10-23-2023 take 30 mL by mouth every six hours as needed 30 mL, Oral, EVERY 6 HOURS NEEDED, Starting on Sun10/19/23 at 2247, Until Sun10/23/23 at 1331, Indigestion, Per 5 mL is equivalent to: (Alum-Mag Hydroxide 200-225 mg and Simethicone 20 mg) and (Alum-Mag Hydroxide 200-200 mg and Simethicone 20 mg) amiodarone hydrochloride 200 mg oral tablet (1 source) Antiarrhythmic Start: 11-17-2023 End: 11-19-2023 azithromycin 250 mg oral tablet (2 sources) [...] iron preparations within one hour of this medication.Finis h all this medication unless otherwise directed by prescriber. Comment on above: Do not take dairy pr oducts, antacids, or iron preparations within one hour of this medication.Finish all this medication unless otherwise directed by prescriber. bisacodyl 10 mg rectal suppository (1 source) Stimulant Laxative Start: 11-16-2023 End: 11-19-2023 castor oil 0.788 mg/mg / welsh balsam 0.087 mg/mg topical ointment (1 source) Standardized Chemical Allergen Start: 11-13-2023 End: 11-15-2023 ceFAZolin 2000 mg injection (1 source) Cephalosporin Antibacterial Start: 11-13-2023 End: 11-14-2023 take 2 g intravenously every eight hours chlorhexidine gluconate 1.2 mg/ml mouthwash (2 sources) Start: 11-13-2023 End: 11-13-2023 Start: 11-13-2023 End: 11-13-2023 cholecalciferol 0.25 mg oral capsule (16 sources) Vitamin D Start: 12-03-2023 End: 03-11-2025 take 1 capsule by mouth once daily Cholecalciferol (Vitamin D3) 250 mcg (10,000 unit) capsule Discontinued 250 ug PO DAILY December 03, 2023 12:00am March 11, 2025 8:30am take 1 tablet by mouth once cong y Vitamin D, Cholecalciferol, 25 MCG (1000 UT) tablet Take 1 tablet by mouth daily. Active 0.4 ml enoxaparin sodium 100 mg/ml prefilled syringe (1 source) Low Molecular Weight Heparin Start: 10-23-2023 End: 10-23-2023 inject 40 mg by subcutaneous injection once daily 40 mg, Subcutaneous, DAILY, First dose on Sun10/23/23 at 0900, Until Discontinued, Indications: DVT/PE prophylaxis furosemide 20 mg oral tablet (1 source) Loop Diuretic Start: 11-17-2023 End: 11-17-2023 Gadopiclenol SOLN 1-25 mL (1 source) Start: 10-21-2023 End: 10-21-2023 1-25 mL, Intravenous, ONCE, 1 dose, On Sun10/21/23 at 1730 guaiFENesin 20 mg/ml oral solution (1 source) Start: 10-19-2023 End: 10-23-2023 take 400 mg by mouth every six hours as needed 400 mg, Oral, EVERY 6 HOURS NEEDED, Starting on Sun10/19/23 at 2247, Until Sun10/23/23 at 1331, Cough, Congestion 1 ml haloperidol 5 mg/ml prefilled syringe (1 source) Typical Antipsychotic Start: 11-13-2023 End: 11-13-2023 1 ml heparin sodium, porcine 5000 unt/ml prefilled syringe (2 sources) Unfractionated Heparin, Anti-coagulant Start: 11-14-2023 End: 11-19-2023 Start: 10-20-2023 End: 10-22-2023 INTERMEDIATE/CARDIAC SLIDING SCALE FOR PATIENTS EQUAL TO OR GREATER THAN 65KG: Initiate dose at 12 units/kg/hr. If PTT is less than 47, increase dose by 3 units/kg/hr. If PTT is 47-60, increase dose by 2 units/kg/hr. If PTT is 61-71, increase dose by 1 unit/kg/hr. If PTT is 72-95, no change. If PTT is 96-111, decrease dose by 1 unit/kg/hr. If PTT is 112-126, hold infusion for 60 minutes and decrease dose by 2 units/kg/hr. If PTT greater than 126, hold infusion and check PTT every 2 hours. Once PTT is in goal range or below, restart infusion at 3 units/kg/hr lower than the most recent dose. Note: Round PTT to nearest whole number (e.g. 70.5=71, 70.4=70)., Indications: Acute Coronary Syndrome 1 ml HYDROmorphone hydrochloride 1 mg/ml cartridge (1 source) Opioid Agonist Start: 11-13-2023 End: 11-14-2023 take 0.5 mg intravenously every four hours as needed 100 ml insulin, regular, human 1 unt/ml injection (1 source) Insulin Start: 11-13-2023 End: 11-15-2023 iohexol (OMNIPAQUE) 350 MG/ML injection 1-171 mL (3 sources) Start: 12-22-2024 End: 12-22-2024 1-171 mL, Intravenous, ONCE, 1 dose, On 12/22/24 at 1015, Extravasation Risk, CT Procedure Start: 12-17-2023 End: 12-17-2023 1-171 mL, Intravenous, ONCE, 1 dose, On 12/17/23 at 1515, Extravasation Risk, CT Procedure Start: 10-20-2023 End: 10-20-2023 1-171 mL, Intravenous, ONCE, 1 dose, On 10/20/23 at 0830, Extravasation Risk, CT Procedure magnesium oxide 400 mg oral tablet (2 sources) Start: 11-16-2023 End: 11-19-2023 Start: 10-23-2023 End: 10-23-2023 800 mg, Oral, ADMINISTER DIRECTED, Starting on Tu10/23/23 at 0645, Until Sun10/23/23 at 1331, See admin instructions, For Magnesium 1.6 - 2.0, give 800 mg of Magnesium oxide. 50 ml magnesium sulfate 80 mg/ml injection (4 sources) Start: 11-13-2023 End: 11-19-2023 take 4 g intravenously every twelve hours Start: 10-23-2023 End: 10-23-2023 4 g, Intravenous, Administer over 4 Hours, ADMINISTER DIRECTED, Starting on Tu10/23/23 at 0645, Until Tu10/23/23 at 1331, Other, Magnesium Replacement Therapy, If Magnesium less than 1.6, give 4 g Magnesium Sulfate IVPB over 4 hours (may give over 1 hour if arrhythmias present). melatonin 3 mg oral tablet (4 sources) Start: 11-18-2023 End: 12-10-2023 take 2 tablets by mouth at bedtime as needed Melatonin 3 MG tablet Take 2 tablets by mouth at bedtime as needed for Insomnia. 11/18/2023 12/10/2023 Discontinued (Medication Reconciliation (suppress cancel msg)) Start: 11-17-2023 End: 11-19-2023 Start: 10-19-2023 End: 10-23-2023 take 6 mg by mouth once daily at bedtime as needed 6 mg, Oral, DAILY AT BEDTIME NEEDED, Starting on Sun10/19/23 at 2247, Until Sun10/23/23 at 1331, Insomnia methocarbamol 500 mg oral tablet (1 source) Muscle Relaxant Start: 11-15-2023 End: 11-19-2023 1 ml methylPREDNISolone acetate 40 mg/ml injection (3 sources) Corticosteroid Start: 08-18-2021 End: 08-18-2021 methylPREDNISolone acetate (DEPO-medrol) injection 80 mg Start: 10-04-2019 End: 10-04-2019 methylPREDNISolone acetate ( DEPO-medrol) injection 80 mg 24 hr metoprolol succinate 25 mg extended release oral tablet (8 sources) beta-Adrenergic Jaime Start: 11-23-2023 End: 12-03-2023 take 1 tablet by mouth once daily Metoprolol Succinate 25 mg tablet extended release 24 hr Discontinued 25 mg PO DAILY November 23, 2023 12:00am December 03, 2023 1:30pm Start: 11-15-2023 End: 11-18-2023 Start: 10-23-2023 End: 11-18-2023 Start: 10-20-2023 End: 10-23-2023 take 12.5 mg by mouth every twelve hours 12.5 mg, Oral, EVERY 12 HOURS, First dose on Sun10/20/23 at 0900, Until Discontinued, Hold if HR mupirocin 0.02 mg/mg topical ointment (1 source) RNA Synthetase Inhibitor Antibacterial Start: 11-13-2023 End: 11-13-2023 Ondansetron 4mg/2ml (ZOFRAN) injection 4 mg (1 source) Start: 10-19-2023 End: 10-23-2023 take 4 mg intravenously every six hours as needed Ondansetron 4mg/2ml (ZOFRAN) injection 4 mg oxyCODONE hydrochloride 5 mg oral tablet (3 sources) Opioid Agonist Start: 11-13-2023 End: 02-03-2024 take 1 tablet by mouth every six hours as needed for pain oxyCODONE 5 MG tablet Indications: Postoperative pain Take 1 tablet by mouth every 6 hours as needed for Moderate Pain or Severe Pain. 28 tablet 11/18/2023 12/10/2023 Discontinued (Medication Reconciliation (suppress cancel msg)) pantoprazole 40 mg injection (1 source) Proton Pump Inhibitor Start: 11-13-2023 End: 11-15-2023 polyethylene glycol 3350 20204 mg powder for oral solution (4 sources) Osmotic Laxative Start: 11-18-2023 End: 12-10-2023 take 17 g by mouth twice daily as needed for constipation Polyethylene glycol 17 GM/SCOOP Powder powder Take 17 g by mouth 2 times daily as needed for Constipation. 510 g 1 11/18/2023 12/10/2023 Discontinued (Medication Reconciliation (suppress cancel msg)) Start: 11-14-2023 End: 12-18-2023 Start: 10-19-2023 End: 10-23-2023 17 g, Oral, DAILY NEEDED, Starting on Sun10/19/23 at 2247, Until Sun10/23/23 at 1331, Constipation 1st Line polyvinyl alcohol 0.014 ml/m l / povidone 6 mg/ml ophthalmic solution (1 source) Start: 11-16-2023 End: 11-19-2023 potassium bicarbonate 20 meq effervescent oral tablet (2 sources) Start: 11-15-2023 End: 11-19-2023 microencapsulated potassium chloride 20 meq extended release oral tablet (4 sources) Start: 11-15-2023 End: 11-19-2023 Start: 10-23-2023 End: 10-23-2023 take 60 mEq by mouth every eight hours 40-60 mEq, Oral, ADMINISTER DIRECTED, Starting on Sun10/23/23 at 0645, Until Sun10/23/23 at 1331, See admin instructions, If SCr less than 2.0 mg/dL 1. For Potassium 3.6 - 4.0, give 40 mEq of Potassium Chloride orally, recheck in the AM. 2. For Potassium less than 3.6, give 60 mEq Potassium Chloride orally, recheck in 8 hours. If potassium is low please administer magnesium first if indicated. Start: 10-23-2023 End: 10-23-2023 20-40 mEq, Oral, ADMINISTER DIRECTED, Starting on Sun10/23/23 at 0645, Until Sun10/23/23 at 1331, See admin instructions, If SCr 2.0 - 2.5 mg/dL 1. For Potassium 3.6-4.0, give 20 mEq potassium chloride. 2. If Potassium less than 3.6, give 40 mEq potassium chloride, recheck in AM. If SCr greater than 2.5 and potassium less than 4.0, Contact MD/IVANA for replacement order. prochlorperazine 5 mg/ml injectable solution (1 source) Phenothiazine Start: 11-16-2023 End: 11-19-2023 take 10 mg intravenously every four hours as needed Promethazine (1 source) Phenothiazine Start: 10-19-2023 End: 10-23-2023 take 1 tablet by mouth every six hours as needed Promethazine (PHENERGAN) tablet 25 mg 100 ml propofol 10 mg/ml injection (1 source) General Anesthetic Start: 11-13-2023 End: 11-13-2023 rosuvastatin calcium 20 mg oral tablet (20 sources) HMG-CoA Reductase Inhibitor Start: 10-24-2023 End: 01-19-2025 take 1 tablet by mouth once daily Rosuvastatin 20 mg tablet Discontinued 20 mg PO DAILY 90 3 January 30, 2024 11:20am January 19, 2025 4:58pm Start: 10-23-2023 End: 10-23-2023 take 20 mg by mouth once daily 20 mg, Oral, DAILY, Fir [facility] dose (after last modification) on Sun10/23/23 at 0900, Until Discontinued Start: 10-20-2023 End: 10-22-2023 take 10 mg by mouth once daily 10 mg, Oral, DAILY, Fir st dose (after last modification) on Sun10/20/23 at 0900, Until Discontinued sennosides, correction 8.6 mg oral capsule (3 sources) Start: 11-18-2023 End: 12-18-2023 take 1 capsule by mouth twice daily as needed for constipation Sennosides (Senna) 8.6 MG capsule Take 1 capsule by mouth 2 times daily as needed for Constipation. 60 capsule 11/18/2023 12/10/2023 Discontinued (Medication Reconciliation (suppress cancel msg)) Start: 11-14-2023 End: 11-19-2023 20 ml sodium chloride 9 mg/m l injection (8 sources) Start: 12-22-2024 End: 12-22-2024 1-100 mL, Intravenous, ONCE NEEDED, 1 dose, Starting on 12/22/24 at 1016, Until 12/22/24 at 1016, Flush, CT Procedure Start: 12-17-2023 End: 12-17-2023 1-100 mL, Intravenous, ONCE NEEDED, 1 dose, Starting on 12/17/23 at 1511, Until 12/17/23 at 1512, Flush, CT Procedure Start: 11-18-2023 End: 11-18-2023 Start: 11-13-2023 End: 11-15-2023 Start: 11-13-2023 End: 11-19-2023 Start: 10-22-2023 End: 10-22-2023 take 1.5 mL intravenously every hour 1.5 mL/kg/hr 88.9 kg Dosing weight (133.35 mL/hr, rounded to 133.4 mL/hr), Intravenous, CONTINUOUS, Starting on 10/22/23 at 1400, Until 10/22/23 at 1959, Post-op/Post-Proc Start: 10-20-2023 End: 10-20-2023 1-100 mL, Intravenous, ONCE NEEDED, 1 dose, Starting on 10/20/23 at 0826, Until 10/20/23 at 0826, Flush, CT Procedure Start: 10-19-2023 End: 10-23-2023 Intravenous, at 20 mL/hr, NEEDED, Starting on Sun10/19/23 at 2247, Until Tu10/23/23 at 1331, Carrier Fluid - See Admin. Inst, 250mL 0.9NS to be used as carrier fluid for intermittent small volume or piggyback medication administration as needed. Infusion rate of the carrier fluid should be set at 20 mL/hr unless the rate as the intermittent medication is less than 20 mL/hr. For intermittent medications with a rate less than 20 mL/hr set the carrier fluid at that rate of the intermittent or piggy back medication. 1 ml triamcinolone acetonide 40 mg/ml injection (14 sources) Corticosteroid Start: 10-09-2024 End: 10-09-2024 triamcinolone acetonide (KENALOG-40) injection 80 mg Start: 10-09-2024 End: 10-09-2024 triamcinolone acetonide (DINA ALOG-40) injection 80 mg Start: 10-09-2024 End: 10-09-2024 80 mg, Intra-articular, Once , On Fatimah 10/09/24 at 1630, For 1 dose Start: 10-09-2024 End: 10-09-2024 80 mg, Intra-articular, Once , On Fatimah 10/09/24 at 1630, For 1 dose Start: 08-20-2024 End: 08-20-2024 triamcinolone acetonide (DINA ALOG-40) injection 80 mg Start: 08-20-2024 End: 08-20-2024 triamcinolone acetonide (DINA ALOG-40) injection 80 mg Start: 08-20-2024 End: 08-20-2024 80 mg, Intra-articular, Once , On Sun08/20/24 at 1745, For 1 dose Start: 08-20-2024 End: 08-20-2024 80 mg, Intra-articular, Once , On Sun08/20/24 at 1745, For 1 dose Start: 02-20-2024 End: 02-20-2024 triamcinolone acetonide (DINA ALOG-40) injection 80 mg Start: 02-20-2024 End: 02-20-2024 triamcinolone acetonide (DINA ALOG-40) injection 80 mg Start: 09-26-2023 End: 09-26-2023 triamcinolone acetonide (DINA ALOG-40) injection 40 mg Start: 10-18-2022 End: 10-18-2022 triamcinolone acetonide (DINA ALOG-40) injection 40 mg Start: 10-12-2021 End: 10-12-2021 triamcinolone acetonide (DINA ALOG-40) injection 80 mg vitamin e 180 mg oral capsule (2 sources) End: 12-17-2023 take 1 capsule by mouth once daily vitamin E 400 units capsule Take 1 capsule by mouth daily. 12/17/2023 Discontinued (Therapy completed) (1 source) Start: 11-18-2023 End: 11-18-2023 (2 sources) Start: 11-13-2023 End: 11-13-2023 Start: 11-13-2023 End: 11-14-2023 (1 source) Start: 11-14-2023 End: 11-19-2023 (1 source) Start: 11-13-2023 End: 11-19-2023 [Order 1 Start] Name: Renetta cueto Gluconate 10 % injection 2 g Signed Summary: 2 g, Intravenous, ADMINISTER DIRECTED, Starting on Sun11/13/23 at 1532, Until 11/19/23 at 1554, See admin instructions, 1. If ionized Calcium 4.1-4.5, give 2.0 gm of Calcium Gluconate IV Push over 10 minutes 2. If Calcium less than or equal to 4.0, give 4 gm Calcium Gluconate/250 mL NS IVPB over 1 hour and recheck 1 hour after completion of infusion. Repeat labs in AM. Extravasation Risk, Post-op/Post-Proc [Order 1 End] [Order 2 Start] Name: Calcium Gluconate 4 g in Sodium chloride 0.9%, with overfill 150 mL (total volume) IVPB Signed Summary: 4 g, Intravenous, Administer over 60 Minutes, ADMINISTER DIRECTED, Starting on Sun11/13/23 at 1532, Until 11/19/23 at 1554, See admin instructions, 1. If ionized Calcium 4.1-4.5, give 2.0 gm of Calcium Gluconate IV Push over 10 minutes 2. If Calcium less than or equal to 4.0, give 4 gm Calcium Gluconate/250 mL NS IVPB over 1 hour and recheck 1 hour after completion of infusion. Repeat labs in AM. Extravasation Risk, Post-op/Post-Proc [Order 2 End] (1 source) Start: 11-13-2023 End: 11-13-2023 Problems Active Problems Problem Classification Problem Date Documented Da te Episodic/Chronic Acute myocardial infarction (13 sources) Myocardial infarction; Translations: [Non-ST elevation (NSTEMI) myocardial infarction] 10-18-2023 Chronic Aortic; peripheral; and visceral artery aneurysms (20 sources) Aneurysm of ascending aorta; Translations: [Aneurysm of ascending aorta without rupture] Onset: 10-30-2023 10-30-2023 Chronic Calculus of urinary tract (4 sources) Calculus of ureter; Translations: [Unspecified renal colic] Onset: 08-20-2024 Episodic Cardiac dysrhythmias (3 sources) Multiple premature ventricular complexes; Translations: [Ventricular premature depolarization] Onset: 06-18-2024 04-24-2024 Chronic Cataract (20 sources) Bilateral pseudophakia; Translations: [Presence of intraocular lens] Onset: 05-27-2018 Resolved: 12-07-2020 Chronic Conditions associated with dizziness or vertigo (2 sources) Dizziness and giddiness; Translations: [Dizziness and giddiness] Onset: 10-20-2024 Episodic Coronary atherosclerosis and other heart disease (7 sources) Coronary arteriosclerosis; Translations: [Atherosclerotic heart disease of [place] coronary artery without angina pectoris] Onset: 06-18-2024 12-03-2023 Chronic Diabetes mellitus without complication (12 sources) Hyperglycemia; Translations: [Hyperglycemia, unspecified] 10-18-2023 Episodic Disorders of lipid metabolism (12 sources) Hyperlipidemia; Translations: [Hyperlipidemia, unspecified] Onset: 12-31-2023 11-26-2023 Chronic Essential hypertension (7 sources) Hypertensive disorder; Translations: [Essential (primary) hypertension] Onset: 03-03-2025 12-03-2023 Chronic Genitourinary symptoms and ill-defined conditions (2 sources) Frequency of micturition; Translations: [Frequency of micturition] Onset: 11-23-2023 Episodic Glaucoma (20 sources) Ocular hypertension; Translations: [Ocular hypertension, bilateral] Onset: 04-09-2019 04-09-2019 Chronic Heart valve disorders (15 sources) Aortic valve regurgitation; Translations: [Nonrheumatic aortic (valve) insufficiency] Onset: 12-22-2024 10-18-2023 Chronic Immunizations and screening for infectious disease (2 sources) Contact with and (suspected) exposure to other viral communicable diseases; Translations: [Exposure to SARS-associated coronavirus] Episodic Inflammation; infection of eye (except that caused by tuberculosis or sexually transmitteddisease) (5 sources) Bilateral punctate keratitis of eyes; Translations: [Punctate keratitis, bilateral] Onset: 05-27-2018 05-27-2018 Chronic Malaise and fatigue (1 source) Physical deconditioning; Translations: [Other malaise] 11-17-2023 Episodic Nonspecific chest pain (16 sources) Chest pain; Translations: [Chest pain, unspecified] Onset: 10-20-2023 10-20-2023 Episodic Comment on above: Patient's discomfort primarily with bending over and at the distal end of his sternotomy scar. It appears to be well-healed there is no sternal click on exam. His lungs are clear to auscultation he is a relatively active and is lifting 25 pounds without any discomfort. I feel that he should be able to proceed with lifting 50 pounds and return to work gainful employment in early February as previously arranged. He is due to have a repeat echocardiogram done in mid February. Open wounds of extremities (2 sources) Laceration without foreign body of left little finger without damage to nail, initial encounter; Translations: [LAC W/O FB LT LF W/O DMG NAIL INIT] Onset: 12-18-2019 Episodic Osteoarthritis (20 sources) Bilateral arthritis of knees; Translations: [Bilateral primary osteoarthritis of knee] Onset: 10-04-2019 10-04-2019 Chronic Other circulatory disease (2 sources) History of replacement of ascending aorta; Translations: [Presence of other vascular implants and grafts] 11-15-2023 Chronic Other circulatory disease (4 sources) History of aortic arch replacement; Translations: [Presence of other vascular implants and grafts] Onset: 11-13-2023 12-21-2023 Chronic Comment on above: 11/13/2023 ebony-arch procedure with control of head and neck vessels (26mm Ante-Valdemar graft) Other circulatory disease (1 source) Personal history of other diseases of the circulatory system; Translations: [Personal history of other diseases of the circulatory system] Onset: 03-11-2025 Episodic Other connective tissue disease (1 source) Tear of right rotator cuff; Translations: [Unspecified rotator cuff tear or rupture of right shoulder, not specified as traumatic] 02-09-2025 Episodic Other connective tissue disease (3 sources) Full thickness rotator cuff tear; Translations: [Complete rotator cuff tear or rupture of right shoulder, not specified as traumatic] Onset: 02-11-2025 02-11-2025 Episodic Other connective tissue disease (4 sources) Complete rotator cuff tear or rupture of right shoulder, not specified as traumatic; Translations: [Complete rotator cuff tear or rupture of right shoulder, not specified as traumatic] Onset: 02-11-2025 Episodic Other diseases of kidney and ureters (1 source) Other specified disorders of kidney and ureter; Translations: [Other specified disorders of kidney and ureter] Onset: 10-22-2024 Chronic Other diseases of veins and lymphatics (2 sources) Aneurysm of vein; Translations: [Varicose veins of other specified sites] 11-19-2023 Episodic Other eye disorders (6 sources) Optic cupping; Translations: [Glaucomatous optic atrophy, bilateral] Onset: 11-26-2019 Chronic Other eye disorders (6 sources) Bilateral vitreous floaters; Translations: [Other vitreous opacities, bilateral] Onset: 10-24-2016 10-24-2016 Chronic Other eye disorders (1 source) Degenerative disorder of eye; Translations: [Degenerative myopia, bilateral] Onset: 05-27-2018 05-27-2018 Chronic Other eye disorders (4 sources) Bilateral myopia of eyes; Translations: [Degenerative myopia, bilateral] Onset: 05-27-2018 05-27-2018 Chronic Other eye disorders (4 sources) Disorder of eye; Translations: [Unspecified disorder of eye and adnexa] 12-03-2023 Episodic Comment on above: right orbital venous varix/outpouching the patient is due to see a neuro-enrichment teacher in the next couple weeks. Other eye disorders (2 sources) Unspecified disorder of eye and adnexa; Translations: [Other eye problems] 12-03-2023 Episodic Other infections; including parasitic (1 source) Erythema chronica migrans; Translations: [Lyme Disease] 02-25-2022 Episodic Other nervous system disorders (1 source) Postoperative pain ; Translations: [Other acute postprocedural pain] 11-18-2023 Episodic Other non-traumatic joint disorders (9 sources) Pain in right shoulder; Translations: [Pain in joint, shoulder region] Onset: 03-21-2017 01-27-2025 Episodic Other non-traumatic joint disorders (1 source) Pain in left knee; Translations: [Pain in left knee] Episodic Other non-traumatic joint disorders (4 sources) Shoulder pain; Translations: [Pain in left shoulder] Episodic Other non-traumatic joint disorders (1 source) Hip pain; Translations: [Pain in right hip] 02-09-2025 Episodic Other non-traumatic joint disorders (2 sources) Pain in right hip; Translations: [Pain in right hip] Onset: 02-13-2025 Episodic Other non-traumatic joint disorders (1 source) Pain in right knee; Translations: [Right knee pain, unspecified chronicity] Other non-traumatic joint disorders (3 sources) Bilateral arthritis of knees; Translations: [Arthritis of both knees] Onset: 10-04-2019 10-04-2019 Other screening for suspected conditions (not mental disorders or infectious disease) (4 sources) Patient encounter status; Translations: [Encounter for screening for malignant neoplasm of intestinal tract, unspecified] 09-17-2020 Episodic Other upper respiratory infections (1 source) Acute upper respiratory infection; Translations: [Acute upper respiratory infections of unspecified site] 02-21-2022 Episodic Residual codes; unclassified (3 sources) History of great vessel repair; Translations: [Other specified postprocedural states] 11-19-2023 Episodic Residual codes; unclassified (6 sources) History of aortic valve repair; Translations: [Other specified postprocedural states] Onset: 11-13-2023 12-21-2023 Episodic Comment on above: Aortic valve was rep aired he had mild eccentric regurgitation in the postop echo. I did not hear it on today's exam. Residual codes; unclassified (4 sources) H/O cardiac surgery; Translations: [Other specified postprocedural states] 12-22-2024 Episodic Residual codes; unclassified (3 sources) Other specified postprocedural states; Translations: [Other specified postprocedural states] Onset: 12-22-2024 Episodic Retinal detachments; defects; vascular occlusion; and retinopathy (20 sources) Epiretinal membrane of right eye; Translations: [Puckering of macula, right eye] Onset: 10-24-2016 Chronic Thyroid disorders (1 source) Nontoxic single thyroid nodule; Translations: [Nontoxic single thyroid nodule] Onset: 10-06-2024 Chronic Unclassified (2 sources) SPIDER BITE 02-21-2022 Comment on above: SPIDER BITE Unclassified (1 source) Acute URI 02-21-2022 Unclassified (2 sources) BUG BITE 02-25-2022 Comment on above: BUG BITE Unclassified (1 source) Erythema migrans (Lyme disease) 02-25-2022 Unclassified (2 sources) Pain in right shoulder 02-06-2025 Urinary tract infections (2 sources) Urinary tract infectious disease; Translations: [UTI] Onset: 11-23-2023 Episodic Past or Other Problems Problem Classification Problem Date Documented Date Episodic/Chronic Blindness and vision defects (20 sources) Severe myopia; Translations: [Myopia, bilateral] Onset: 09-07-2014 Resolved: 12-27-2018 Episodic Heart valve disorders (1 source) Cardiac murmur, unspecified; Translations: [Cardiac murmur, unspecified] Onset: 09-01-2024 Episodic Inflammation; infection of eye (except that caused by tuberculosis or sexually transmitteddisease) (8 sources) Acute conjunctivitis; Translations: [Unspecified acute conjunctivitis, unspecified eye] Onset: 01-14-2015 Resolved: 10-24-2016 10-24-2016 Episodic Other circulatory disease (1 source) Personal history of transient ischemic attack (TIA), and cerebral infarction without residual deficits; Translations: [Personal history of transient ischemic attack (TIA), and cerebral infarction without residual deficits] Onset: 09-22-2024 Episodic Other eye disorders (5 sources) Marginal corneal ulcer of right eye; Translations: [Marginal corneal ulcer, right eye] Onset: 05-09-2018 05-09-2018 Episodic Other eye disorders (5 sources) H/O: L cataract extraction; Translations: [Cataract extraction status, left eye] Onset: 12-27-2018 Resolved: 01-21-2024 12-27-2018 Episodic Other eye disorders (5 sources) H/O: R cataract extraction; Translations: [Cataract extraction status, right eye] Onset: 01-23-2019 Resolved: 01-21-2024 01-23-2019 Episodic Other eye disorders (4 sources) Central corneal ulcer; Translations: [Central corneal ulcer, unspecified eye] Onset: 01-10-2015 Resolved: 10-24-2016 10-24-2016 Episodic Other lower respiratory disease (1 source) Solitary pulmonary nodule; Translations: [Solitary pulmonary nodule] Onset: 10-16-2024 Episodic Other non-traumatic joint disorders (20 sources) Disorder of shoulder; Translations: [Bursitis/tendonitis, shoulder] Onset: 02-17-2016 02-17-2016 Episodic Residual codes; unclassified (5 sources) History of repair of aortic root; Translations: [Other specified postprocedural states] Onset: 11-13-2023 11-16-2023 Episodic Sprains and strains (20 sources) Glenoid labrum tear; Translations: [Superior glenoid labrum lesion of unspecified shoulder, initial encounter] Onset: 03-21-2017 03-21-2017 Episodic Unclassified (2 sources) History of great vessel repair 12-22-2024 Results Test Name Value Interpretation Reference Range Facility OP NOTEon 04-24-2025 OP NOTE Post OP Note Date of Service: 04/24/2025 Clinician: Asaf Torres MD OR Staff: Scrub Person: Gracie Dozier RN Brick Paving Checker Orientee: Maria Eugenia Carroll RN Brick Paving Checker Preceptor: Elisabet Matias RN Anesthesia Staff: PHARMACOVIGILANCE SAFETY EXPERT: Joe Evans CRNA; Arpita Rizo CRNA Surgeon(s):Surgeons and Role: * Asaf Torres MD - Primary * Inocencio Wesley PA-C - Assisting A PA (as listed above) assistance was required in order to safely complete this complex case. Pre-operative Diagnosis: Rotator cuff tear right shoulder Post-operative Diagnosis: Same Procedure: Arthroscopic rotator cuff repair right shoulder Type of Anesthesia used: General And Peripheral Nerve Block Estimated Blood Loss: less than 50 mL Drains: none Complications: None; patient tolerated the procedure well. Condition: stable Indication: 64-year-old active gentleman with chronic pain right shoulder. MRI has shown a full-thickness cuff tear that looks to be repairable. Patient admitted for rotator cuff repair of the right shoulder. Procedure Details: Patient brought to the operating suite. Patient properly identified. Appropriate anesthetic given. Patient positioned lateral decubitus position using a beanbag. Right arm prepped and draped usual sterile fashion. Arm suspended using the arthroscopic arm pineda. Shoulder prepped and draped in usual fashion. Formal timeout was done. Standard portals established. The scope was introduced through a posterior portal. Systematic exam showed the biceps had previously ruptured there was a stump of the biceps left at the supraglenoid tubercle. A V-shaped full-thickness tear of the supraspinatus was identified. Very mild degenerative changes of the glenoid and the humeral head. Subscap intact. Glenohumeral ligaments intact. Labrum intact. Scope placed in the subacromial space. The V-shaped tear was not retracted at all. The bursal tissue was debrided in order to better visualize the cuff. A single triple loaded suture anchor was placed at the tuberosity opposite the apex of the tear. We placed 1 suture in the anterior limb of the tear we placed 1 at the apex of the tear and 1 suture slightly posterior to the apex. Arthroscopic knots were tied. The cuff approximated to the tuberosity well. We used a knotless anchor placed the 3 sutures in the knotless anchor and deployed the anchor in the lateral humeral cortex and tensioned the sutures. The cuff was well-approximated sutures were well tensioned and down nicely. Subacromial space was debrided lightly. All loose pieces of bone and cartilage were removed in the subacromial space. The instruments were removed. Portals were closed using nylon suture. Sterile dressings applied. Patient was transferred to recovery room in stable condition. NAWAF Wesley was necessary perform the surgery safely and efficiently Instrument, sponge, and needle counts were correct prior to wound closure and at the conclusion of the case. Family in the patient's room Findings: Implants:* No implants in log * Attending Attestation: I was present and scrubbed for the entire procedure. AUTHENTICATED BY Asaf TORRES, ON 04/24/2025 12:24:04 Normal [facility] Glucose [Mass/Vol] 82 mg/dL Normal 65-99 [facility] Comment on above: Performed By: #### [id number] #### H [facility] [address] [address] Skylar Koenig M.D. [id number] Cardiology Visit Reporton Cardiology Visit Report [facility] [address] [place] [address]. [address] [place] [address] OFFICE VISIT Date of Service: 03/11/25 MR#: [id number] Acct: [id number] Name: AFSANEH BOWERS Rep #: [id number] : 1960 Provider: Dr. Richard lopez MD Age/Sex: 64/M Location: [facility] Status: Signed HPI HPI History of Present Illness Details: Patient is a very pleasant 64-year-old white male who comes in for cardiovascular management and follow-up. The patient has a history of aortic valve repair at the time of the ascending aorta surgical intervention due to an aortic aneurysm. The patient had visual changes after his surgical intervention and has been treated by ophthalmology at [facility]. His cardiovascular surgery was done at [facility] as well. Patient's last echocardiogram from June 2024 showed normal LV size LV systolic function at the lower limits of normal with EF of 50% stage I diastolic dysfunction bilateral atrial enlargement to a mild degree mild aortic regurgitation. In May he was noted to have a 2/6 diastolic murmur. 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 He had 1 incident that was diagnosed as vertigo where he ran down the court turned across the baseline and kind of lost his orientation. This lasted a few seconds and resolved spontaneously and he was able to continue with resting the game. He is now aerobically active he is playing [employer] ball routinely he keeps up with the other participants. He occasionally gets some mild left shoulder discomfort he has had previous shoulder surgery but this was his initial presentation was profound dyspnea on exertion and left shoulder discomfort while refereeing a basketball game when he was first diagnosed. This current shoulder discomfort is episodic is not predictable it occurs at rest and with activities. The patient does have known coronary disease his heart cath in October 2023 prior to his surgical intervention in November 2023 showed a proximal LAD with 70% stenosis proximal diagonal 50% and that diagonal trifurcated with diffuse disease in some of the branches. There is a 40% proximal circumflex lesion. His preop echocardiogram showed an EF of 65% and his aortic root measured 5.6 cm. Currently the patient is denying any chest symptoms he is active as noted above he denies any PND orthopnea he does occasionally feel like he notices his heartbeat when he is in the recumbent position but denies any orthopnea or PND. He denies any syncope or near syncope other than the 1 episode diagnosed as vertigo. The patient does note some easy bruisability related to his aspirin therapy. The patient is contemplating right shoulder surgery and possibly right hip surgery. He is also going to be trialing meloxicam for his hip pain. 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 Accompanied by: Self Is patient in pain?: No Allergies No Known Allergies Allergy (Verified 03/11/25 08:29) Medications ???Medication ???Instructions ???Recorded ???Confirmed ???Type aspirin 81 mg tablet,delayed 81 mg PO DAILY 11/23/23 05/15/24 H istory release ascorbic acid (vitamin C) 500 mg mg PO DAILY 12/03/23 03/11/25 Hist ory capsule multivitamin 1 tab PO DAILY 12/03/23 03/11/25 H istory vitamin B complex 1 tab PO DAILY 02/19/24 03/11/25 H istory losartan 25 mg tablet 25 mg PO QDAY #30 tabs 06/09/24 Rx carvedilol 6.25 mg tablet 6.25 mg PO BID #180 tabs 06/23/24 03/11/25 Rx rosuvastatin 20 mg tablet 20 mg PO DAILY #90 tabs 01/19/25 0 03/11/25 Rx omeprazole 40 mg capsule,delayed 40 mg PO QDAY 03/11/25 03/11/25 Hi story release Ejection fraction %: 50 Have you fallen in the past year?: No PFSH Medical History Lyme disease Moderate to severe aortic insufficiency Ascending aortic aneurysm Eye problem Hyperlipidemia Coronary artery disease Hypertension Aortic root dilatation Aortic valve regurgitation Surgical History 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 Normal [facility] HIP RT MIN 2V W OR WO PELVIS on 02-12-2025 HIP RT MIN 2V W OR WO PELVIS [facility] Patient: KISHOREAFSANEH [address] [place] [address] Admit Date: 02/11/25 /Age: 1 1960 ED Physician: DIAGNOSTIC RADIOLOGY REQUISITION Attending Physician: Nina Torres MD [facility] Rec #: [id number] EXAM: HIP RT MIN 2V W OR WO PELVIS HISTORY: RIGHT HIP PAIN COMPARISON: None. FINDINGS/IMPRESSION: 1. Moderate osteoarthritic change right hip. 2. Mild osteoarthritic change left hip. 3. No fracture. 4. No lytic or blastic lesion. Authenticated on: 02/12/25924 [id number]/RRIA 4 Job ID# [id number] CC: Nina Torres MD [facility] MR Shoulder - right WO contr jose 02-09-2025 Radiology Study observation (narrative) [place] MR SHOULDER RIGHT WO IV CONT RASTon 02-06-2025 MR SHOULDER RIGHT WO IV CONTRAST Interpreted By: Cameron Murillo, STUDY: MRI of the right shoulder without IV contrast; 02/06/2025 4:52 pm INDICATION: Signs/Symptoms:RIGHT SHOULDER PAIN. ,M25.511 Pain in right shoulder COMPARISON: None ACCESSION NUMBER(S): [id number] ORDERING CLINICIAN: Nina TORRES TECHNIQUE: MR imaging of the right shoulder was obtained without IV contrast. FINDINGS: ROTATOR CUFF TENDONS: There is a full-thickness tear of the far distal anterior supraspinatus tendon measuring 8 mm in AP dimension. This is superimposed on partial-thickness undersurface tearing of the remainder of the supraspinatus tendon as well as tendinopathy. The infraspinatus tendon is tendinopathic and overall intact. The subscapularis tendon is thickened consistent with tendinopathy. There is a low-grade partial-thickness undersurface tearing of the superior fibers of the subscapularis tendon. There is mild volume loss of the subscapularis muscle superiorly. Otherwise no muscle atrophy or edema seen. BICEPS TENDON AND ROTATOR INTERVAL: Full-thickness tear of the intra-articular long head of the biceps tendon which is retracted into the bicipital groove. Associated soft tissue edema and fluid present at the anterior aspect of the humerus. JOINTS: The acromioclavicular joint demonstrates moderate cartilage loss with osteophytosis. Evaluation of the glenohumeral articulation demonstrates no articular cartilage defects. No evidence of significant joint effusion. No significant bursal fluid collection. LABRUM: There is truncation and tearing of the superior labrum. There is no detachment. There is no paralabral cyst.. OSSEOUS STRUCTURES: No focal marrow replacing lesions are identified. There is no fracture. SOFT TISSUES: Moderate soft tissue edema at the anterior aspect of the humerus likely related to the biceps tendon tear which is retracted. However similar findings can be seen with a pectoralis major tendon tear. The pectoralis tendon insertion is not visualized as it is below the field of view on these images. IMPRESSION: 1. Full-thickness tear of the intra-articular long head of biceps tendon which is retracted into the upper arm along the bicipital groove. Moderate amount of fluid and edema along the anterior aspect of the humerus present likely related to the underlying biceps tear. 2. Note is made that an underlying pectoralis injury may have similar findings at the anterior aspect of the humerus. The insertion of the pectoralis is not well visualized within the field of view of the study. If there is clinical concern for pectoralis tear additional MRI can be performed. 3. Full-thickness tear of the far distal anterior supraspinatus tendon measuring 8 mm in AP dimension. With underlying partial-thickness undersurface tearing of the remainder of the supraspinatus. I personally reviewed the images/study and I agree with the findings as stated. This study was interpreted at [facility], [place], [place]. MACRO: None Signed by: Cameron Murillo 02/06/2025 11:17 PM Dictation workstation: [id number] [facility] MR Shoulder - right WO contr jose 02-06-2025 1. Full-thickness te ar of the intra-articular long head of biceps tendon which is retracted into the upper arm along the bicipital groove. Moderate amount of fluid and edema along the anterior aspect of the humerus present likely related to the underlying biceps tear. 2. Note is made that an underlying pectoralis injury may have similar findings at the anterior aspect of the humerus. The insertion of the pectoralis is not well visualized within the field of view of the study. If there is clinical concern for pectoralis tear additional MRI can be performed. 3. Full-thickness tear of the far distal anterior supraspinatus tendon measuring 8 mm in AP dimension. With underlying partial-thickness undersurface tearing of the remainder of the supraspinatus. I personally reviewed the images/study and I agree with the findings as stated. This study was interpreted at [place], [place]. MACRO: None Signed by: Cameron Murillo 02/06/2025 11:17 PM Dictation workstation: [id number] [facility] Interpreted By: Cameron Faulkner, STUDY: MRI of the right shoulder without IV contrast; 02/06/2025 4:52 pm INDICATION: Signs/Symptoms:RIGHT SHOULDER PAIN. ,M25.511 Pain in right shoulder COMPARISON: None ACCESSION NUMBER(S): [id number] ORDERING CLINICIAN: Nina TORRES TECHNIQUE: MR imaging of the right shoulder was obtained without IV contrast. FINDINGS: ROTATOR CUFF TENDONS: There is a full-thickness tear of the far distal anterior supraspinatus tendon measuring 8 mm in AP dimension. This is superimposed on partial-thickness undersurface tearing of the remainder of the supraspinatus tendon as well as tendinopathy. The infraspinatus tendon is tendinopathic and overall intact. The subscapularis tendon is thickened consistent with tendinopathy. There is a low-grade partial-thickness undersurface tearing of the superior fibers of the subscapularis tendon. There is mild volume loss of the subscapularis muscle superiorly. Otherwise no muscle atrophy or edema seen. BICEPS TENDON AND ROTATOR INTERVAL: Full-thickness tear of the intra-articular long head of the biceps tendon which is retracted into the bicipital groove. Associated soft tissue edema and fluid present at the anterior aspect of the humerus. JOINTS: The acromioclavicular joint demonstrates moderate cartilage loss with osteophytosis. Evaluation of the glenohumeral articulation demonstrates no articular cartilage defects. No evidence of significant joint effusion. No significant bursal fluid collection. LABRUM: There is truncation and tearing of the superior labrum. There is no detachment. There is no paralabral cyst.. OSSEOUS STRUCTURES: No focal marrow replacing lesions are identified. There is no fracture. SOFT TISSUES: Moderate soft tissue edema at the anterior aspect of the humerus likely related to the biceps tendon tear which is retracted. However similar findings can be seen with a pectoralis major tendon tear. The pectoralis tendon insertion is not visualized as it is below the field of view on these images. [facility] Cameron Murillo MD - 02/06/2025 Interpreted By: Cameron Murillo, STUDY: MRI of the right shoulder without IV contrast; 02/06/2025 4:52 pm INDICATION: Signs/Symptoms:RIGHT SHOULDER PAIN. ,M25.511 Pain in right shoulder COMPARISON: None ACCESSION NUMBER(S): [id number] ORDERING CLINICIAN: Nina TORRES TECHNIQUE: MR imaging of the right shoulder was obtained without IV contrast. FINDINGS: ROTATOR CUFF TENDONS: There is a full-thickness tear of the far distal anterior supraspinatus tendon measuring 8 mm in AP dimension. This is superimposed on partial-thickness undersurface tearing of the remainder of the supraspinatus tendon as well as tendinopathy. The infraspinatus tendon is tendinopathic and overall intact. The subscapularis tendon is thickened consistent with tendinopathy. There is a low-grade partial-thickness undersurface tearing of the superior fibers of the subscapularis tendon. There is mild volume loss of the subscapularis muscle superiorly. Otherwise no muscle atrophy or edema seen. BICEPS TENDON AND ROTATOR INTERVAL: Full-thickness tear of the intra-articular long head of the biceps tendon which is retracted into the bicipital groove. Associated soft tissue edema and fluid present at the anterior aspect of the humerus. JOINTS: The acromioclavicular joint demonstrates moderate cartilage loss with osteophytosis. Evaluation of the glenohumeral articulation demonstrates no articular cartilage defects. No evidence of significant joint effusion. No significant bursal fluid collection. LABRUM: There is truncation and tearing of the superior labrum. There is no detachment. There is no paralabral cyst.. OSSEOUS STRUCTURES: No focal marrow replacing lesions are identified. There is no fracture. SOFT TISSUES: Moderate soft tissue edema at the anterior aspect of the humerus likely related to the biceps tendon tear which is retracted. However similar findings can be seen with a pectoralis major tendon tear. The pectoralis tendon insertion is not visualized as it is below the field of view on these images. IMPRESSION: 1. Full-thickness tear of the intra-articular long head of biceps tendon which is retracted into the upper arm along the bicipital groove. Moderate amount of fluid and edema along the anterior aspect of the humerus present likely related to the underlying biceps tear. 2. Note is made that an underlying pectoralis injury may have similar findings at the anterior aspect of the humerus. The insertion of the pectoralis is not well visualized within the field of view of the study. If there is clinical concern for pectoralis tear additional MRI can be performed. 3. Full-thickness tear of the far distal anterior supraspinatus tendon measuring 8 mm in AP dimension. With underlying partial-thickness undersurface tearing of the remainder of the supraspinatus. I personally reviewed the images/study and I agree with the findings as stated. This study was interpreted at [place], [place]. MACRO: None Signed by: Cameron Murillo 02/06/2025 11:17 PM Dictation workstation: [id number] [facility] Work Phone: Radiology Study observation (narrative) [facility] Work Phone: [facility] MR Shoulder - right WO contr astOrdered By: Cameron Murillo on 02-06-2025 [facility] Work Phone: SHOULDER RT MIN 2 VIEWSon SHOULDER RT MIN 2 VIEWS [facility] Patient: AFSANEH BOWERS [address] [place] [address] Admit Date: 02/04/25 /Age: 01 1960 ED Physician: DIAGNOSTIC RADIOLOGY REQUISITION Attending Physician: Nina Torres MD Med Rec #: [id number] EXAM: SHOULDER RT MIN 2 VIEWS HISTORY: RIGHT SHOULDER PAIN COMPARISON: None. FINDINGS/IMPRESSION: 1. Mild degenerative change acromioclavicular joint. 2. No significant glenohumeral arthritis. 3. No fracture, lytic, or blastic lesion. 4. Negative for calcific bursitis. Authenticated on: 02/05/25 1022 [id number]/RRIA Job ID# [id number] CC: Nina Torres MD [facility] Absolute lymphocyte countOrd ered By: Chilango Welsh on 02-04-2025 Lymphocytes Auto (Unsp spec) [#/Vol] 1.58 10*3/uL 0.83-4.51 [facility] Absolute neutrophil countOrd ered By: Chilango Welsh on 02-04-2025 Neutrophils (Bld) [#/Vol] 5.5 10*3/uL 2.0-7.7 [facility] Anion gap in Serum or Plasma Ordered By: Chilango Welsh on 02-04-2025 Anion gap [Moles/Vol] 12 mmol/L 5-15 [facility] Automated lymphocyte count a s percentage of total leukocytesOrdered By: Chilango Welsh on 02-04-2025 Lymphocytes/100 WBC Auto (Unsp spec) 19.4 % 19- [facility] BUN/creatinine ratioOrdered By: Chilango [facility]2025 Urea nitrogen/Creatinine [Mass ratio] 18.8 mg/mg 10- [facility] Basophil percentageOrdered B y: Chilango Welsh on 02-04-2025 Basophils/100 WBC (Bld) 0.7 % 0-1 [facility] Bilirubin, totalOrdered By: Chilango Welsh on 02-04-2025 Bilirubin [Mass/Vol] 0.38 mg/dL 0.00-1.30 [facility] CBC W/Diff, Automatedon Absolute Lymph 1.58 X10 3/uL Normal 0.83-4.51 [facility] Comment on above: Order Comment: Order Date: 02/04/25 Order Info: [id number] - CBCD Performed By: #### L 500.4100, L100.0100, L500.4050, L501.9910 #### [facility] [address], [address] Absolute Neut 5.5 X10 3/uL Normal 2.0-7.7 [facility] Comment on above: Order Comment: Order Date: 02/04/25 Order Info: 0184-1 - CBCD Performed By: #### L 500.4100, L100.0100, L500.4050, L501.9910 #### [facility] [address] [place], [address] Basophils/100 WBC (Bld) 0.7 % Normal 0-1 [facility] Comment on above: Order Comment: Order Date: 02/04/25 Order Info: 0184-1 - CBCD Performed By: #### L 500.4100, L100.0100, L500.4050, L501.9910 #### [facility] [address] [place], [address] Eosinophils/100 WBC (Bld) 2.0 % Normal 0-5 [facility] Comment on above: Order Comment: Order Date: 02/04/25 Order Info: 0184-1 - CBCD Performed By: #### L 500.4100, L100.0100, L500.4050, L501.9910 #### [facility] [address] [place], [address] Erythrocyte distribution width (RBC) [Ratio] 12.0 % Normal 11.6-14.6 [facility] Comment on above: Order Comment: Order Date: 02/04/25 Order Info: 0184-1 - CBCD Performed By: #### L 500.4100, L100.0100, L500.4050, L501.9910 #### [facility] [address] [place], [address] Hematocrit (Bld) [Volume fraction] 44.0 % Normal 40-54 [facility] Comment on above: Order Comment: Order Date: 02/04/25 Order Info: 0184-1 - CBCD Performed By: #### L 500.4100, L100.0100, L500.4050, L501.9910 #### [facility] [address] [place], [address] Hemoglobin (Bld) [Mass/Vol] 14.3 g/dL Normal 13.0-16.5 [facility] Comment on above: Order Comment: Order Date: 02/04/25 Order Info: 0184-1 - CBCD Performed By: #### L 500.4100, L100.0100, L500.4050, L501.9910 #### [facility] [address] [place], [address] IG% 0.500 Normal 0.0-0.9 [facility] Comment on above: Order Comment: Order Date: 02/04/25 Order Info: [id number]- - CBCD Result Comment: IG% - Immature Granulocytes (promyelocytes, myelocytes and metamyelocytes) > 1% indicates that a LEFT SHIFT is Present. Performed By: #### L 500.4100, L100.0100, L500.4050, L501.9910 #### [facility] [address] [place], [address] Lymphocytes/100 WBC (Bld) 19.4 % Normal 19-41 [facility] Comment on above: Order Comment: Order Date: 02/04/25 Order Info: 0184-1 - CBCD Performed By: #### L 500.4100, L100.0100, L500.4050, L501.9910 #### [facility] [address] [place], [address] MCH (RBC) [Entitic mass] 28.9 pg Normal 27.0-32.0 [facility] Comment on above: Order Comment: Order Date: 02/04/25 Order Info: 0184-1 - CBCD Performed By: #### L 500.4100, L100.0100, L500.4050, L501.9910 #### [facility] [address] [place], [address] MCHC (RBC) [Mass/Vol] 32.5 g/dL Normal 32-36 [facility] Comment on above: Order Comment: Order Date: 02/04/25 Order Info: 0184-1 - CBCD Performed By: #### L 500.4100, L100.0100, L500.4050, L501.9910 #### [facility] [address] [place], [address] MCV (RBC) [Entitic vol] 88.9 fL Normal 80-94 [facility] Comment on above: Order Comment: Order Date: 02/04/25 Order Info: 0184-1 - CBCD Performed By: #### L 500.4100, L100.0100, L500.4050, L501.9910 #### [facility] [address] [place], [address] Monocytes/100 WBC (Bld) 10.7 % High 0-10 [facility] Comment on above: Order Comment: Order Date: 02/04/25 Order Info: 0184-1 - CBCD Performed By: #### L 500.4100, L100.0100, L500.4050, L501.9910 #### [facility] [address] [place], [address] Neutrophils/100 WBC (Bld) 66.7 % Normal 47-70 [facility] Comment on above: Order Comment: Order Date: 02/04/25 Order Info: 0184-1 - CBCD Performed By: #### L 500.4100, L100.0100, L500.4050, L501.9910 #### [facility] [address] [place], [address] Nucleated RBC (Bld) [#/Vol] 0 10*3/uL Normal 0-5 [facility] Comment on above: Order Comment: Order Date: 02/04/25 Order Info: 0184-1 - CBCD Performed By: #### L 500.4100, L100.0100, L500.4050, L501.9910 #### [facility] [address] [place], [address] Platelet mean volume (Bld) [Entitic vol] 9.5 fL Normal 6.2-12.0 [facility] Comment on above: Order Comment: Order Date: 02/04/25 Order Info: 0184-1 - CBCD Performed By: #### L 500.4100, L100.0100, L500.4050, L501.9910 #### [facility] [address] [place], [address] Platelets (Bld) [#/Vol] 278 10*3/uL Normal 150-450 [facility] Comment on above: Order Comment: Order Date: 02/04/25 Order Info: 0184- - CBCD Performed By: #### L 500.4100, L100.0100, L500.4050, L501.9910 #### [facility] [address] [place], [address] RBC (Bld) [#/Vol] 4.95 10*6/uL Normal 4.6-6.2 [facility] Comment on above: Order Comment: Order Date: 02/04/25 Order Info: 0184-1 - CBCD Performed By: #### L 500.4100, L100.0100, L500.4050, L501.9910 #### [facility] [address] [place], [address] RDW SD 39.2 fl Normal 35.1-43.9 [facility] Comment on above: Order Comment: Order Date: 02/04/25 Order Info: 0184-1 - CBCD Performed By: #### L 500.4100, L100.0100, L500.4050, L501.9910 #### [facility] [address] [place], [address] WBC (Bld) [#/Vol] 8.2 10*3/uL Normal 4.4-11.0 [facility] [place] Comment on above: Order Comment: Order Date: 02/04/25 Order Info: 0184-1 - CBCD Performed By: #### L 500.4100, L100.0100, L500.4050, L501.9910 #### [facility] [address] [place], [place], [address] Calculated very low density lipoprotein (VLDL) cholesterol measurementOrdered By: Chilango Welsh on 02-04-2025 Calculated very low density lipoprotein (VLDL) cholesterol measurement 11 mg/dL 5-40 [facility] Carbon dioxide, total [Moles /volume] in Central venous bloodOrdered By: Chilango Welsh on 02-04-2025 CO2 [Moles/Vol] 22.9 mmol/L 21.0-32.0 [facility] Chloride assayOrdered By: Tayler Welsh on 02-04-2025 Chloride [Moles/Vol] 104 mmol/L 98-108 [facility] Comprehensive Metabolic Prof ilon 02-04-2025 Albumin [Mass/Vol] 4.0 g/dL Normal 3.4-4.8 [facility] [place] Comment on above: Order Comment: Order Date: 02/04/25 Order Info: [id number] - CMP Order Info: [id number] - LIPID Order Info: [id number] - PSA Performed By: #### L 500.4100, L100.0100, L500.4050, L501.9910 #### [facility] [address] [place], [place], [address] Albumin/Globulin [Mass ratio] 1.5 {ratio} Normal 0.9-2.4 [facility] Comment on above: Order Comment: Order Date: 02/04/25 Order Info: [id number] - CMP Order Info: [id number] - LIPID Order Info: [id number] - PSA Performed By: #### L 500.4100, L100.0100, L500.4050, L501.9910 #### [facility] [address] [place], [address] ALK PHOS 59 U/L Normal 40-129 [facility] Comment on above: Order Comment: Order Date: 02/04/25 Order Info: [id number] - CMP Order Info: [id number] - LIPID Order Info: [id number] - PSA Performed By: #### L 500.4100, L100.0100, L500.4050, L501.9910 #### [facility] [address] [place], [address] ALT [Catalytic activity/Vol] 17 U/L Normal <=46 [facility] Comment on above: Order Comment: Order Date: 02/04/25 Order Info: [id number]- - CMP Order Info: [id number] - LIPID Order Info: [id number] - PSA Performed By: #### L 500.4100, L100.0100, L500.4050, L501.9910 #### [facility] [address] [place], [address] AST [Catalytic activity/Vol] 24 U/L Normal <=37 [facility] Comment on above: Order Comment: Order Date: 02/04/25 Order Info: [id number] - CMP Order Info: [id number] - LIPID Order Info: [id number] - PSA Performed By: #### L 500.4100, L100.0100, L500.4050, L501.9910 #### [facility] [address] [place], [address] Bilirubin [Mass/Vol] 0.38 mg/dL Normal 0.00-1.30 [facility] Comment on above: Order Comment: Order Date: 02/04/25 Order Info: [id number] - CMP Order Info: [id number] - LIPID Order Info: [id number] - PSA Performed By: #### L 500.4100, L100.0100, L500.4050, L501.9910 #### [facility] [address] [place], [address] BUN/CRE 18.8 RATIO Normal 10-20 [facility] Comment on above: Order Comment: Order Date: 02/04/25 Order Info: [id number] - CMP Order Info: [id number] - LIPID Order Info: [id number] - PSA Performed By: #### L 500.4100, L100.0100, L500.4050, L501.9910 #### [facility] [address] [place], [address] Calcium [Mass/Vol] 9.0 mg/dL Normal 7.6-11.0 [facility] [place] Comment on above: Order Comment: Order Date: 02/04/25 Order Info: [id number]- - CMP Order Info: [id number] - LIPID Order Info: [id number] - PSA Performed By: #### L 500.4100, L100.0100, L500.4050, L501.9910 #### [facility] [address] [place], [address] Chloride [Moles/Vol] 104 mmol/L Normal 98-108 [facility] Comment on above: Order Comment: Order Date: 02/04/25 Order Info: [id number] - CMP Order Info: [id number] - LIPID Order Info: [id number] - PSA Performed By: #### L 500.4100, L100.0100, L500.4050, L501.9910 #### [facility] [address] [place], [address] CO2 [Moles/Vol] 22.9 mmol/L Normal 21.0-32.0 [facility] Comment on above: Order Comment: Order Date: 02/04/25 Order Info: [id number] - CMP Order Info: [id number] - LIPID Order Info: [id number] - PSA Performed By: #### L 500.4100, L100.0100, L500.4050, L501.9910 #### [facility] [address] [place], [address] Creatinine [Mass/Vol] 0.94 mg/dL Normal 0.70-1.20 [facility] Comment on above: Order Comment: Order Date: 02/04/25 Order Info: [id number] - CMP Order Info: - LIPID Order Info: [id number] - PSA Performed By: #### L 500.4100, L100.0100, L500.4050, L501.9910 #### [facility] [address] [place], [address] GAP 12 Normal 5-15 [facility] Comment on above: Order Comment: Order Date: 02/04/25 Order Info: [id number] - CMP Order Info: - LIPID Order Info: [id number] - PSA Performed By: #### L 500.4100, L100.0100, L500.4050, L501.9910 #### [facility] [address] [place], [place], [id number] GFR/1.73 sq M.predicted among non-blacks MDRD (S/P/Bld) [Vol rate/Area] 90 mL/min/{1.73_m2} Normal >60 [facility] Comment on above: Order Comment: Order Date: 02/04/25 Order Info: [id number] - CMP Order Info: - LIPID Order Info: [id number] - PSA Result Comment: mL/m in/1.73m2 CKD-EPI Creatinine Equation (2020) Performed By: #### L 500.4100, L100.0100, L500.4050, L501.9910 #### [facility] [address] [place], [address] Globulin (S) [Mass/Vol] 2.6 g/dL Normal 2.2-4.2 [facility] Comment on above: Order Comment: Order Date: 02/04/25 Order Info: [id number] - CMP Order Info: [id number] - LIPID Order Info: 1 - PSA Performed By: #### L 500.4100, L100.0100, L500.4050, L501.9910 #### [facility] [address] [place], [address] Glucose [Mass/Vol] 104 mg/dL High 70-99 [facility] [place] Comment on above: Order Comment: Order Date: 02/04/25 Order Info: [id number] - CMP Order Info: [id number] - LIPID Order Info: [id number] - PSA Performed By: #### L 500.4100, L100.0100, L500.4050, L501.9910 #### [facility] [address] [place], [address] Potassium [Moles/Vol] 4.1 mmol/L Normal 3.3-5.1 [facility] Comment on above: Order Comment: Order Date: 02/04/25 Order Info: [id number] - CMP Order Info: [id number] - LIPID Order Info: [id number] - PSA Performed By: #### L 500.4100, L100.0100, L500.4050, L501.9910 #### [facility] [address] [place], [address] Sodium [Moles/Vol] 139 mmol/L Normal 133-145 [facility] [place] Comment on above: Order Comment: Order Date: 02/04/25 Order Info: [id number] - CMP Order Info: [id number] - LIPID Order Info: [id number] - PSA Performed By: #### L 500.4100, L100.0100, L500.4050, L501.9910 #### [facility] [address] [place], [address] T PROT 6.6 g/dL Normal 5.9-8.4 [facility] Comment on above: Order Comment: Order Date: 02/04/25 Order Info: [id number] - CMP Order Info: [id number] - LIPID Order Info: [id number] - PSA Performed By: #### L 500.4100, L100.0100, L500.4050, L501.9910 #### [facility] [address] [place], [address] Urea nitrogen [Mass/Vol] 18 mg/dL Normal 4-19 [facility] Comment on above: Order Comment: Order Date: 02/04/25 Order Info: [id number] - CMP Order Info: [id number] - LIPID Order Info: [id number] - PSA Performed By: #### L 500.4100, L100.0100, L500.4050, L501.9910 #### [facility] [address] [place], [address] Eosinophil percentageOrdered By: Chilango Welsh on 02-04-2025 Eosinophils/100 WBC (Bld) 2.0 % 0-5 [facility] Erythrocyte distribution wid th ratioOrdered By: Chilango Welsh on 02-04-2025 Erythrocyte distribution width (RBC) [Ratio] 12.0 % 11.6-14.6 [facility] Erythrocyte distribution wid th standard deviationOrdered By: Chilango Welsh on 02-04-2025 Erythrocyte distribution width (RBC) [Ratio] 39.2 fl 35.1-43.9 [facility] Glomerular filtration rate ( GFR) estimation/1.73 sq m using serum, plasma, or whole bOrdered By: Chilango Welsh on 02-04-2025 GFR/1.73 sq M.predicted among non-blacks MDRD (S/P/Bld) [Vol rate/Area] 90 mL/min/{1.73_m2} >60 [facility] Comment on above: mL/min/1.73m2 CKD-EP I Creatinine Equation (2020) Hematocrit Auto (Bld) [Volum e fraction]Ordered By: Chilango Welsh on 02-04-2025 Hematocrit (Bld) [Volume fraction] 44.0 % 40-54 [facility] Hemoglobin A1con 02-04-2025 HbA1c (Bld) [Mass fraction] 5.7 % Normal <=5.6 [facility] Comment on above: Order Comment: PLEAS E ADD A1C TO BLOOD DRAWN THIS AM PER Result Comment: Norm al < 5.7 % Prediabetic 5.7 - 6.4 % Diabetic >or= 6.5 % Please note range changes. Performed By: #### L 501.9985 #### [facility] [address] [place], [place], [id number] Hemoglobin A1c percentageOrd ered By: Chilango Welsh on 02-04-2025 HbA1c (Bld) [Mass fraction] 5.7 % <5.7 [facility] Comment on above: Normal < 5.7 % Predi abetic 5.7 - 6.4 % Diabetic >or= 6.5 % Please note range changes. Hemoglobin measurementOrdere d By: Chilango Welsh on 02-04-2025 Hemoglobin (Bld) [Mass/Vol] 14.3 g/dL 13.0-16.5 [facility] Immature granulocytes/100 WB C Auto (Bld)Ordered By: Chilango Welsh on 02-04-2025 Immature granulocytes/100 WBC (Bld) 0.500 % 0.0-0.9 [facility] Comment on above: IG% - Immature Granu locytes (promyelocytes, myelocytes and metamyelocytes) > 1% indicates that a LEFT SHIFT is Present. LDL calc ser/plasOrdered By: Chilango Welsh on 02-04-2025 Cholesterol in LDL [Mass/Vol] 60 mg/dL [facility] Comment on above: Qzomtynrkh=372-668 m g/dL & Higher Nefc=653 mg/dL or greater Laboratory - Chemistry and C hemistry - challengeOrdered By: Chilango Welsh on 02-04-2025 AST [Catalytic activity/Vol] 24 U/L <38 [facility] Lipid Profileon 02-04-2025 CHOL:HDL 2.37 Normal [facility] Comment on above: Order Comment: Order Date: 02/04/25Order Info: [id number] - CMPOrder Info: [id number] - LIPIDOrder Info: [id number] - PSA Performed By: #### L 500.4100, L100.0100, L500.4050, L501.9910 ####[facility] [address] [place], [place], [id number] Cholesterol [Mass/Vol] 122 mg/dL Normal <=200 [facility] Comment on above: Order Comment: Order Date: 02/04/25Order Info: [id number] - CMPOrder Info: [id number] - LIPIDOrder Info: [id number] - PSA Result Comment: Chol esterol level, Desirable <200 mg/dL Borderline high cholesterol 200-239 mg/dL High cholesterol >=240 mg/dL Recommendations of the NCEP Adult Treatment Panel for the following risk-cutoff thresholds for the [place] population. Performed By: #### L 500.4100, L100.0100, L500.4050, L501.9910 ####[facility] [address] [place], [address] Cholesterol in HDL [Mass/Vol] 51 mg/dL Normal [facility] Comment on above: Order Comment: Order Date: 02/04/25Order Info: [id number] - CMPOrder Info: - LIPIDOrder Info: [id number] - PSA Result Comment: [place] on[place] Cholesterol Education Program (NCEP) guidelines: <40 mg/dL: Low HDL-cholesterol (major risk factor for CHD) >= 60 mg/dL: High HDL-cholesterol (negative risk factor for CHD) HDL-cholesterol is affected by a number of factors, e.g. smoking, exercise, hormones, sex and age. Performed By: #### L 500.4100, L100.0100, L500.4050, L501.9910 ####[facility] [address] [place], [address] Cholesterol in LDL [Mass/Vol] 60 mg/dL Normal [facility] Comment on above: Order Comment: Order Date: 02/04/25Order Info: [id number] - CMPOrder Info: [id number] - LIPIDOrder Info: [id number] - PSA Result Comment: Bord nefrdz=399-121 mg/dL Higher Dane=746 mg/dL or greater Performed By: #### L 500.4100, L100.0100, L500.4050, L501.9910 ####[facility] [address] [place], [address] Cholesterol in VLDL [Mass/Vol] 11 mg/dL Normal 5-40 [facility] Comment on above: Order Comment: Order Date: 02/04/25Order Info: [id number] - CMPOrder Info: [id number] - LIPIDOrder Info: [id number] - PSA Performed By: #### L 500.4100, L100.0100, L500.4050, L501.9910 ####[facility] [address] [place], [place], [id number] Triglyceride [Mass/Vol] 55 mg/dL Normal [facility] Comment on above: Order Comment: Order Date: 02/04/25Order Info: [id number] - CMPOrder Info: [id number] - LIPIDOrder Info: [id number] - PSA Result Comment: The drugs N-Acetylcysteine and Metamizole may falsely depress this assay. Normal range: <150 mg/dL Borderline High: 150-199 mg/dL High: 200-499 mg/dL Very High: >500 mg/dL Performed By: #### L 500.4100, L100.0100, L500.4050, L501.9910 ####[facility] [address] [place], [place], [id number] MCV (mean corpuscular volume ) determinationOrdered By: Chilango Welsh on 02-04-2025 MCV (RBC) [Entitic vol] 88.9 fL 80-94 [facility] Mean corpuscular hemoglobin (MCH) determinationOrdered By: Chilango Welsh on 02-04-2025 MCH (RBC) [Entitic mass] 28.9 pg 27.0-32.0 [facility] Mean corpuscular hemoglobin concentration (MCHC) determinationOrdered By: Chilango Welsh on 02-04-2025 MCHC (RBC) [Mass/Vol] 32.5 g/dL 32-36 [facility] Mean platelet volume determi nationOrdered By: Chilango Welsh on 02-04-2025 Platelet mean volume (Bld) [Entitic vol] 9.5 fL 6.2-12.0 [facility] Monocyte percentageOrdered B y: Chilango Welsh on 02-04-2025 Monocytes/100 WBC (Bld) 10.7 % High 0-10 [facility] Neutrophil percentageOrdered By: Chilango Welsh on 02-04-2025 Neutrophils/100 WBC (Bld) 66.7 % 47-70 [facility] Nucleated red blood cell per centageOrdered By: Chilango Welsh on 02-04-2025 Nucleated RBC/100 WBC (Bld) [Ratio] 0 % 0-5 [facility] PSA,Total - Annual Screenon 02-04-2025 PSA,TOT SCREEN 0.68 ng/mL Normal 0.02-4.00 [facility] Comment on above: Order Comment: Order Date: 02/04/25Order Info: [id number] - CMPOrder Info: [id number] - LIPIDOrder Info: [id number] - PSA Result Comment: This test was performed using the [employer] tPSA method. Measured values of a patient??sample can vary depending on the testing procedure used. PSA values determined on patient samples by different testing procedures cannot be used interchangeably. If there is a change in PSA assays while monitoring therapy, sequential testing should be performed to confirm baseline values. Performed By: #### L 500.4100, L100.0100, L500.4050, L501.9910 ####[facility] [address] [place], [address] Platelet countOrdered By: Tayler Welsh on 02-04-2025 Platelets (Bld) [#/Vol] 278 10*3/uL 150-450 [facility] Potassium measurement (mass/ volume)Ordered By: Chilango Welsh on 02-04-2025 Potassium (Unsp spec) [Mass/Vol] 4.1 mmol/L 3.3-5.1 [facility] RBC Auto (Bld) [#/Vol]Ordere d By: Chilango Welsh on 02-04-2025 RBC (Bld) [#/Vol] 4.95 10*6/uL 4.6-6.2 [facility] Screening total cholesterol/ high density lipoprotein (HDL) cholesterol ratioOrdered By: Chilango Welsh on 02-04-2025 Cholesterol.total/Kerry sterol in HDL [Mass ratio] 2.37 {ratio} [facility] Serum creatinine measurement (mass/volume)Ordered By: Chilango Welsh on 02-04-2025 Creatinine [Mass/Vol] 0.94 mg/dL 0.70-1.20 [facility] Serum globulin measurementOr dered By: Chilango Welsh on 02-04-2025 Globulin (S) [Mass/Vol] 2.6 g/dL 2.2-4.2 [facility] Serum glucose measurement (m ass/volume)Ordered By: Chilango Welsh on 02-04-2025 Glucose [Mass/Vol] 104 mg/dL High 70-99 [facility] [place] Serum or plasma alanine norton otransferase (ALT) measurementOrdered By: Chilango Welsh on 02-04-2025 ALT [Catalytic activity/Vol] 17 U/L <47 [facility] Serum or plasma albumin alvin urement (mass/volume)Ordered By: Chilango Welsh on 02-04-2025 Albumin [Mass/Vol] 4.0 g/dL 3.4-4.8 [facility] [place] Serum or plasma albumin/glob ulin mass ratioOrdered By: Chilango Welsh on 02-04-2025 Albumin/Globulin [Mass ratio] 1.5 {ratio} 0.9-2.4 [facility] Serum or plasma alkaline sherif sphatase measurementOrdered By: Chilango Welsh on 02-04-2025 ALP [Catalytic activity/Vol] 59 U/L 40-129 [facility] Serum or plasma calcium alvin urement (mass/volume)Ordered By: Chilango Welsh on 02-04-2025 Calcium [Mass/Vol] 9.0 mg/dL 7.6-11.0 [facility] [place] Serum or plasma cholesterol in HDL measurement (mass/volume)Ordered By: Chilango Welsh on 02-04-2025 Cholesterol in HDL [Mass/Vol] 51 mg/dL >40 [facility] Comment on above: National Cholesterol Education Program (NCEP) guidelines:<40 mg/dL: Low HDL-cholesterol (major risk factor for CHD)>= 60 mg/dL: High HDL-cholesterol (negative risk factor for CHD)HDL-cholesterol is affected by a number of factors, e.g. smoking, exercise, hormones, sex and age. Serum or plasma cholesterol measurement (mass/volume)Ordered By: Chilango Welsh on 02-04-2025 Cholesterol [Mass/Vol] 122 mg/dL <201 [facility] Comment on above: Cholesterol level, D esirable <200 mg/dLBorderline high cholesterol 200-239 mg/dLHigh cholesterol >=240 mg/dLRecommendations of the NCEP Adult Treatment Panel for the following risk-cutoff thresholds for the [place] population. Serum or plasma urea nitroge n measurement (mass/volume)Ordered By: Chilango Welsh on 02-04-2025 Urea nitrogen [Mass/Vol] 18 mg/dL 4-19 [facility] Sodium levelOrdered By: Chilango Welsh on 02-04-2025 Sodium [Moles/Vol] 139 mmol/L 133-145 [facility] [place] Total proteinOrdered By: Dl Welsh on 02-04-2025 Protein [Mass/Vol] 6.6 g/dL 5.9-8.4 [facility] [place] Triglycerides measurementOrd ered By: Chilango Welsh on 02-04-2025 Triglyceride [Mass/Vol] 55 mg/dL <199 [facility] Comment on above: The drugs N-Acetylcy steine and Metamizole may falsely depress this assay. Normal range: <150 mg/dLBorderline High: 150-199 mg/dLHigh: 200-499 mg/dLVery High: >500 mg/dL White blood cell (WBC) count Ordered By: Chilango Welsh on 02-04-2025 WBC (Bld) [#/Vol] 8.2 10*3/uL 4.4-11.0 [facility] [place] CREAT/GFRon 12-22-2024 Creatinine [Mass/Vol] 0.73 mg/dL 0.70 - 1.30 mg/dL [facility] GFR/1.73 sq M.predicted CKD-EPI (S/P/Bld) [Vol rate/Area] - PINF [facility] Comment on above: Reported eGFR is bas ed on the CKD-EPI 2020 equation using creatinine, age, and sex. Interpretation and review of laboratory results Normal [facility] Test performed at address of the patient encounter. [facility] CT ANGIO CHEST (NONCORONARY) on 12-22-2024 CT ANGIO CHEST (NONCORONARY) EXAM: CT ANGIO CHEST (NONCORONARY), 12/22/2024 10:44 AM CLINICAL INDICATIONS: s/p aorta repair; COMPARISON: December 17, 2023 TECHNIQUE: The imaging was performed using a MDCT system. It included a spiral acquisition from the shoulders to the upper abdomen in order to assess the entire thoracic aorta and arch vessels, as well as suprarenal abdominal aorta. 3D reconstruction was performed on an independent workstation based on specific patient condition and were reviewed and approved by Jorge Chau MD. CONTRAST: iohexol (OMNIPAQUE) 350 MG/ML injection 1-171 mL; Route of Administration: Intravenous; Dose: 90 mL. FINDINGS: Chest Wall: Evidence of prior anterior median sternotomy Mediastinum: Normal, without adenopathy Maddie: Normal, without adenopathy Pleural Spaces: Normal, without thickening/effusion or pneumothorax Lung Parenchyma: Stable 6 x 5 mm subpleural right upper lobe nodule (series 6, image 109). No consolidation or mass. Pericardium: No pericardial effusion. -------- Atria: Normal, without thrombus Right Ventricle: Normal Left Ventricle: Normal Coronary Arteries: Moderate coronary calcifications. Valves: Normal Pulmonary Arteries: Normal -------- Thoracic Aorta: Improved postsurgical changes related to valve sparing, open graft repair of ascending thoracic aorta/hemiarch. No aneurysm or dissection. Arch Branches: Normal -------- Abdominal Aorta: Normal dimensions. -------- Liver: Normal Biliary System: Normal Pancreas: Normal Spleen: Normal Kidneys: Normal Adrenal Glands: Stable left adrenal gland nodule, likely adenoma Abdominal Wall: Normal IMPRESSION: 1. 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 2. Other ancillary findings are noted as above. Normal [facility] IMPRESSION: 1. 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 2. Other ancillary findings are noted as above. OLOGY EXAM: CT ANGIO CHEST (NONCORONARY), 12/22/2024 10:44 AM CLINICAL INDICATIONS: s/p aorta repair; COMPARISON: December 17, 2023 TECHNIQUE: The imaging was performed using a MDCT system. It included a spiral acquisition from the shoulders to the upper abdomen in order to assess the entire thoracic aorta and arch vessels, as well as suprarenal abdominal aorta. 3D reconstruction was performed on an independent workstation based on specific patient condition and were reviewed and approved by Jorge Chau MD. CONTRAST: iohexol (OMNIPAQUE) 350 MG/ML injection 1-171 mL; Route of Administration: Intravenous; Dose: 90 mL. FINDINGS: Chest Wall: Evidence of prior anterior median sternotomy Mediastinum: Normal, without adenopathy Maddie: Normal, without adenopathy Pleural Spaces: Normal, without thickening/effusion or pneumothorax Lung Parenchyma: Stable 6 x 5 mm subpleural right upper lobe nodule (series 6, image 109). No consolidation or mass. Pericardium: No pericardial effusion. -------- Atria: Normal, without thrombus Right Ventricle: Normal Left Ventricle: Normal Coronary Arteries: Moderate coronary calcifications. Valves: Normal Pulmonary Arteries: Normal -------- Thoracic Aorta: Improved postsurgical changes related to valve sparing, open graft repair of ascending thoracic aorta/hemiarch. No aneurysm or dissection. Arch Branches: Normal -------- Abdominal Aorta: Normal dimensions. -------- Liver: Normal Biliary System: Normal Pancreas: Normal Spleen: Normal Kidneys: Normal Adrenal Glands: Stable left adrenal gland nodule, likely adenoma Abdominal Wall: Normal RADIOLOGY Jorge Chau [facility] - 12/22/2024 EXAM: CT ANGIO CHEST (NONCORONARY), 12/22/2024 10:44 AM CLINICAL INDICATIONS: s/p aorta repair; COMPARISON: December 17, 2023 TECHNIQUE: The imaging was performed using a MDCT system. It included a spiral acquisition from the shoulders to the upper abdomen in order to assess the entire thoracic aorta and arch vessels, as well as suprarenal abdominal aorta. 3D reconstruction was performed on an independent workstation based on specific patient condition and were reviewed and approved by Jorge Chau MD. CONTRAST: iohexol (OMNIPAQUE) 350 MG/ML injection 1-171 mL; Route of Administration: Intravenous; Dose: 90 mL. FINDINGS: Chest Wall: Evidence of prior anterior median sternotomy Mediastinum: Normal, without adenopathy Maddie: Normal, without adenopathy Pleural Spaces: Normal, without thickening/effusion or pneumothorax Lung Parenchyma: Stable 6 x 5 mm subpleural right upper lobe nodule (series 6, image 109). No consolidation or mass. Pericardium: No pericardial effusion. ------ -- Atria: Normal, without thrombus Right Ventricle: Normal Left Ventricle: Normal Coronary Arteries: Moderate coronary calcifications. Valves: Normal Pulmonary Arteries: Normal ------ -- Thoracic Aorta: Improved postsurgical changes related to valve sparing, open graft repair of ascending thoracic aorta/hemiarch. No aneurysm or dissection. Arch Branches: Normal ------ -- Abdominal Aorta: Normal dimensions. ------ -- Liver: Normal Biliary System: Normal Pancreas: Normal Spleen: Normal Kidneys: Normal Adrenal Glands: Stable left adrenal gland nodule, likely adenoma Abdominal Wall: Normal IMPRESSION IMPRESSION: 1. 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 2. Other ancillary findings are noted as above. [facility] Radiology Study observation (narrative) [facility] CT ANGIO CHEST (NONCORONARY) Ordered By: Jorge Chau on 12-22-2024 [facility] Cardiac echo study Procedure Ordered By: Tomas Cruz on 12-22-2024 [facility] Work Phone: Ao peak rosy 1.07 m/s [facility] Work Phone: Ao SOV index 1.89 cm/m2 [facility] Work Phone: Ao STJ index 1.56 cm/m2 [facility] Work Phone: Ao VTI 25.25 cm [facility] Work Phone: [facility] Work Phone: AV LVOT peak gradient 4 [facility] Work [facility]: [facility]: [facility] peak [facility]HG [facility]: AV regurgitation pressure 1/2 time 570.44 ms [facility] Work Phone: AV valve area 3.48 cm2 [facility] Work Phone: AV Velocity Ratio 0.93 [facility] Work Phone: RIZWANA (continuity Vmax) 3.75 cm2 [facility] Work Phone: RIZWANA (continuity VTI) 3.48 cm2 [facility] Work Phone: RIZWANA index (continuity Vmax) 1.78 m/s [facility] Work Phone: RIZWANA index (continuity VTI) 1.66 cm2/m2 [facility] Work Phone: Avg e' pk rosy 0.1 m/s [facility] Work Phone: Avg E/e' ratio 7.12 [facility] Work Phone: Body surface area Derived from formula 2.1 m2 [facility] Work Phone: BP EF 53 % [facility] Work Phone: DI (Vmax) 0.93 [facility] Work Phone: DI (VTI) 0.87 m/2 [facility] Work Phone: E wave decelartion time 261.06 msec [facility] Work Phone: e' lateral pk rosy 0.1214 m[facility] Work [facility]: e' lateral pk rosy 0.12 m/s [facility] Work Phone: e' septal pk rosy 0.075 [facility] Work [facility]: e' septal pk rosy 0.08 m/s [facility] Work Phone: E[facility]A [facility] 2.06 [facility] Work [facility]: E/e' septal ratio 8.8 [facility] Work Phone: EF SP 2CH 53 [facility] Work Phone: EF SP 4CH 51 [facility] Work Phone: EST RAP 3 mmHg [facility] Work Phone: EST RVSP 25 mmHg [facility] Work Phone: FS 29 % [facility] Work Phone: IVC ostium 1.98 cm [facility] Work Phone: IVS 1.39 cm [facility] Work Phone: LA AREA 2CH 26.58 cm2 [facility] Work Phone: LA area 4CH 23.06 cm2 [facility] Work Phone: LA ESV BP (MOD) 71 mL [facility] Work Phone: LA ESV BP (MOD) [facility] 34 mL[facility] LA ESV SP 2CH (MOD) 86 mL [facility] Work Phone: LA ESV SP 4CH (MOD) 59 mL [facility] Work Phone: LA size 4.15 cm [facility] Work Phone: LEFT ATRIAL DIAMETER INDEX 1.98 cm/m2 [facility] Work Phone: LV EDV BP 133 mL [facility] Work Phone: LV EDV SP 2CH 136 mL [facility] Work Phone: LV EDV SP 4CH 127 [facility] Work [facility]: [facility]SV BP 63 [facility] Work Phone: LV ESV SP 2CH 64 [facility] Work Phone: LV ESV SP 4CH 62 [facility] Work Phone: LV mass 255.53 g [facility] Work Phone: LV Mass Index 121.7 g/m2 [facility] Work Phone: LV RWT 0.49 [facility] Work Phone: LV stroke volume BP (ml) 70 [facility] Work Phone: LV stroke volume index BP 33.33 mL/m2 [facility] Work Phone: LVIDD 4.94 cm [facility] Work Phone: LVIDS 3.5 cm [facility] Work Phone: LVOT area 4.01 cm2 [facility] Work Phone: LVOT diameter 2.26 cm [facility] Work Phone: LVOT peak rosy 1 m/s [facility] Work Phone: LVOT peak VTI 21.9 cm [facility] Work Phone: LVOT stroke volume 88 cm3 [facility] Work Phone: LVOT stroke volume index 41.81 ml/m2 [facility] Work Phone: MV pk A rosy 0.32 m/s [facility] Work Phone: MV pk E rosy 0.66 m/s [facility] Work Phone: MV stenosis pressure 1/2 time 75.71 ms [facility] Work Phone: MV valve area p 1/2 method 2.91 cm2 [facility] Work Phone: OSU AV VTI RATIO PRE STRESS 0.87 [facility] Work Phone: OSU ECHO LV BIPLANE SYSTOLIC VOLUME INDEX 30 mL/m2 [facility] Work Phone: OSU ECHO LV BP DIASTOLIC VOLUME INDEX 63.33 mL/m2 [facility] Work Phone: OSU RVOT VTI RATIO 0.59 [facility] Work Phone: PV [facility] gradient [facility]: [facility] peak gradient 3 [facility] Work [facility]: PV PK ROSY 0.81 m/s [facility]: PV VTI 19.35 cm [facility] Work Phone: PW 1.2 cm [facility] Work Phone: RA vol index 4CH (MOD) 46.19 mL/m2 [facility] Work Phone: Right atrium volume 4 chamber method of disks 97 mL [facility] Work [facility]: RV basal diam 4.86 cm [facility] Work Phone: RV long diam 10.47 cm [facility] Work Phone: RV mid diam 4.23 cm [facility] Work Phone: RV S' 10.02 cm/s [facility] Work Phone: RVOT peak gradient 1 mmHg [facility] Work Phone: RVOT peak rosy 0.45 m/s [facility] Work Phone: RVOT peak VTI 11.49 cm [facility] Work Phone: Sinus 3.96 cm [facility] Work Phone: STJ 3.27 cm [facility] Work Phone: Stroke Volume 88 cm/mL [facility]: [facility] TAPSE 2.14 cm [facility] Work Phone: TR pk grad 22 mmHg [facility] Work Phone: TR pk rosy 2.33 m/s [facility] Work Phone: [facility] Work Phone: Cardiac echo study Procedure on 12-22-2024 Left Ventricle: Christopher kristel size is normal. Increased wall thickness. Concentric hypertrophy. Normal global systolic function. Wall motion abnormality: See wall scoring diagram. Ejection fraction is low normal (50-55%). Diastolic function could not be determined. Right Ventricle: Chamber size is normal. Systolic function is normal. RA is enlarged. Aortic Valve: Trileaflet valve. Leaflet mobility is normal. Mild to moderate regurgitation. No stenosis. No echo/Doppler evidence for pulmonary hypertension. Estimated right ventricular systolic pressure is 25 mmHg. Aorta: No dilation to extent seen. The aortic root (sinus level), ascending aorta and transverse aorta regions contain a graft. (Surgery 11/13/23). SOV: 3.96 cm. STJ: 3.27 cm. Ascendin.53 cm. No pericardial effusion. Left Ventricle Chamber size is normal. Increased wall thickness. Concentric hypertrophy. Normal global systolic function. Wall motion abnormality: See wall scoring diagram. Ejection fraction is low normal (50-55%). Diastolic function could not be determined. Right Ventricle Chamber size is normal. Systolic function is normal. Left Atrium Chamber size is normal. Right Atrium Chamber size is enlarged. IVC/SVC The inferior vena cava is normal in size. The inferior vena cava structure is normal. Mitral Valve Normal appearing leaflets. Leaflet mobility is normal. Trace regurgitation. No valve stenosis. Tricuspid Valve Normal leaflets. Leaflet mobility is normal. Trace regurgitation. No stenosis. No echo/Doppler evidence for pulmonary hypertension. Estimated right ventricular systolic pressure is 25 mmHg. Aortic Valve Trileaflet valve. Leaflet mobility is normal. Mild to moderate regurgitation. No stenosis. Mean gradient: 3 mmHg. Dimensionless Index by VTI: 0.87. Valve area continuity VTI: 3.48 cm2. The valve Vmax is 1.07 m/s. Pulmonic Valve Pulmonic valve not well visualized. Trace regurgitation. No stenosis. Pericardium No pericardial effusion. Septum The atrial septum is normal. Aorta No dilation to extent seen. The aortic root (sinus level), ascending aorta and transverse aorta regions contain a graft. (Surgery 11/13/23). SOV: 3.96 cm. STJ: 3.27 cm. Ascendin.53 cm. Study Details A complete echocardiography study (including color flow Doppler, spectral Doppler and M-mode) was performed. Imaging system used: Siemens. Indications Indications for study: other - S/P aorta repair. Wall Scoring Score Index: 1.29 The following segments are hypokinetic: basal inferoseptal, basal inferior, basal inferolateral, mid inferior and mid inferolateral. All other segments are normal. [facility] Radiology Study observation (narrative) [facility] ECHOCARDIOGRAMon 12-22-2024 Echocardiography ? Left Ventricle: Chamber size is normal. Increased wall thickness. Concentric hypertrophy. Normal global systolic function. Wall motion abnormality: See wall scoring diagram. Ejection fraction is low normal (50-55%). Diastolic function could not be determined. ? Right Ventricle: Chamber size is normal. Systolic function is normal. ? RA is enlarged. ? Aortic Valve: Trileaflet valve. Leaflet mobility is normal. Mild to moderate regurgitation. No stenosis. ? No echo/Doppler evidence for pulmonary hypertension. Estimated right ventricular systolic pressure is 25 mmHg. ? Aorta: No dilation to extent seen. The aortic root (sinus level), ascending aorta and transverse aorta regions contain a graft. (Surgery 11/13/23). SOV: 3.96 cm. STJ: 3.27 cm. Ascendin.53 cm. ? No pericardial effusion. Table formatting from the original result was not included. Images from the original result were not included. [facility] Facility [facility] Patient Information Patient Name Afsaneh Bowers Legal Sex Male Indication for Exam Priority: Routine Dx: Status post cardiac surgery [Z98.890 (ICD-10-CM)]; S/P aorta repair [Z98.890 (ICD-10-CM)] Comments: S/p aorta repair Interpretation Summary Result History is available. ? Left Ventricle: Chamber size is normal. Increased wall thickness. Concentric hypertrophy. Normal global systolic function. Wall motion abnormality: See wall scoring diagram. Ejection fraction is low normal (50-55%). Diastolic function could not be determined. ? Right Ventricle: Chamber size is normal. Systolic function is normal. ? RA is enlarged. ? Aortic Valve: Trileaflet valve. Leaflet mobility is normal. Mild to moderate regurgitation. No stenosis. ? No echo/Doppler evidence for pulmonary hypertension. Estimated right ventricular systolic pressure is 25 mmHg. ? Aorta: No dilation to extent seen. The aortic root (sinus level), ascending aorta and transverse aorta regions contain a graft. (Surgery 11/13/23). SOV: 3.96 cm. STJ: 3.27 cm. Ascendin.53 cm. ? No pericardial effusion. Findings Left Ventricle Chamber size is normal. Increased wall thickness. Concentric hypertrophy. Normal global systolic function. Wall motion abnormality: See wall scoring diagram. Ejection fraction is low normal (50-55%). Diastolic function could not be determined. Right Ventricle Chamber size is normal. Systolic function is normal. Left Atrium Chamber size is normal. Right Atrium Chamber size is enlarged. Septum The atrial septum is normal. Mitral Valve Normal appearing leaflets. Leaflet mobility is normal. Trace regurgitation. No valve stenosis. Aortic Valve Trileaflet valve. Leaflet mobility is normal. Mild to moderate regurgitation. No stenosis. Mean gradient: 3 mmHg. Dimensionless Index by VTI: 0.87. Valve area continuity VTI: 3.48 cm2. The valve Vmax is 1.07 m/s. Tricuspid Valve Normal leaflets. Leaflet mobility is normal. Trace regurgitation. No stenosis. No echo/Doppler evidence for pulmonary hypertension. Estimated right ventricular systolic pressure is 25 mmHg. Pulmonic Valve Pulmonic valve not well visualized. Trace regurgitation. No stenosis. Aorta No dilation to extent seen. The aortic root (sinus level), ascending aorta and transverse aorta regions contain a graft. (Surgery 11/13/23). SOV: 3.96 cm. STJ: 3.27 cm. Ascendin.53 cm. Pericardium No pericardial effusion. IVC/SVC The inferior vena cava is normal in size. The inferior vena cava structure is normal. 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 All other segments are normal. Left Heart Measurements LV - Systole LVIDD 4.94 cm IVS 1.39 cm LVIDS 3.5 cm PW 1.2 cm LV RWT 0.49 LV Mass Index 121.7 g/m2 LV EDV BP 133 mL LV ESV BP 63 mL BP EF 53 % LV stroke volume BP (ml) 70 mL LV stroke volume index BP 33.33 mL/m2 LV - Diastole MV pk E rosy 0.66 m/s MV pk A rosy 0.32 m/s E/A ratio 2.06 e' septal pk rosy 0.08 m/s e' lateral pk rosy 0.12 m/s Avg e' pk rosy 0.1 m/s E/e' septal ratio 8.8 E/e' lateral ratio 5.44 Avg E/e' ratio 7.12 LV - HCM AV LVOT peak gradient 4 mmHg Left Atrium LA size 4.15 cm LA ESV SP 4CH (MOD) 59 mL LA ESV SP 2CH (MOD) 86 mL LA ESV BP (MOD) index 34 mL/m2 Right Heart Measurements RV - 2D RV basal diam 4.86 cm RV mid diam 4.23 cm RV long diam 10.47 cm RV - Doppler TAPSE 2.14 cm RV S' 10.02 cm/s Right Atrium RA vol index 4CH (MOD) 46.19 mL/m2 EST RAP 3 mmHg [facility]essels Aortic Root - End Diastolic Sinus 3.96 cm STJ 3.27 cm (more content not included)... Normal [facility] HVF 24-2 FAST - OUon 025 HV 24-2 FAST - OU Table formatting fro m the original result was not included. HVF OD Reliability Fovea MD Interp 12/19/2023 Excellent 26 dB, decreased -4.20 Moderate central VF depression in pattern deviation, cecocentral? 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 on pattern deviation 12/05/24 Low, high fixation losses 33, wnl -1.02 Mild paracentral VF defect, improved VF after capsulotomy, but low reliability HVF OS Reliability Fovea MD Interp 12/19/2023 Low, high fixation losses 32 dB, mildly decreased -1.99 Mild scattered non-specific threshold loss 03/26/24 Excellent 35 dB, WNL -0.19 Mild scattered non-specific threshold loss, stable 06/06/24 good 32, mildly decreased -1.35 Essentially full VF 12/05/24 good 33, wnl -1.44 Mild superior nasal VF depression, paracentral VF depression, possible mild interval worsening Normal [facility] OCT OPTIC NERVE OUon 025 OCT OPTIC NERVE OU Table formatting fro m the original result was not included. RNFL OD (SS) OS (SS) Interp 12/19/2023 87 (/10) 67 (04/12) OD - mild RNFL thickening in temporal quadrant, otherwise WNL OS - RNFL thinning in hour-glass pattern , but segmentation may be not accurate 2/2 myopia 03/26/24 83 (8/10) 69 (06/12) OD - normal RNFL thickness, overall stable OS - stable RNFL thinning in superior and inferior quadrants 06/05/24 90 68 OD - normal RNFL thickness, borderline thick RNFL in temporal quadrant, overall stable OS - stable RNFL thinning in superior and inferior quadrants 12/05/24 86 68 OD - normal RNFL thickness, stable OS - stable RNFL thinning in superior and inferior quadrants GCC OD (SS) OS (SS) Interp 12/19/2023 76 (7) 66 (05/13) OD - GCC thinning superiorly OS - diffuse moderate GCC thinning, but segmentation may be not accurate 2/2 myopia 03/26/24 74 (810) 70 (06/12) OD - stable GCC thinning superiorly OS - stable moderate diffuse GCC thinning 06/06/24 73 67 OD - stable GCC thinning superiorly OS - stable moderate GCC thinning 12/05/24 69 66 OD - stable vs mild interval thinning of GCC superiorly OS - stable moderate GCC thinning OD - retinoschisis nasally to optic disc 2/2 myopia?, does not correlate to VF defect, mild dry outer retinal changes in macula, inner retinal layers thinning superiorly in macula Normal [facility] Ophthalmic OCT panelon 12-05 Table formatting fro m the original result was not included. RNFL OD (SS) OS (SS) Interp 12/19/2023 87 (6/10) 67 (04/12) OD - mild RNFL thickening in temporal quadrant, otherwise WNL OS - RNFL thinning in hour-glass pattern , but segmentation may be not accurate 2/2 myopia 03/26/24 83 (8/10) 69 (06/12) OD - normal RNFL thickness, overall stable OS - stable RNFL thinning in superior and inferior quadrants 06/05/24 90 68 OD - normal RNFL thickness, borderline thick RNFL in temporal quadrant, overall stable OS - stable RNFL thinning in superior and inferior quadrants 12/05/24 86 68 OD - normal RNFL thickness, stable OS - stable RNFL thinning in superior and inferior quadrants GCC OD (SS) OS (SS) Interp 12/19/2023 76 (7/10) 66 (05/13) OD - GCC thinning superiorly OS - diffuse moderate GCC thinning, but segmentation may be not accurate 2/2 myopia 03/26/24 74 (8) 70 (06/12) OD - stable GCC thinning superiorly OS - stable moderate diffuse GCC thinning 06/06/24 73 67 OD - stable GCC thinning superiorly OS - stable moderate GCC thinning 12/05/24 69 66 OD - stable vs mild interval thinning of GCC superiorly OS - stable moderate GCC thinning OD - retinoschisis nasally to optic disc 2/2 myopia?, does not correlate to VF defect, mild dry outer retinal changes in macula, inner retinal layers thinning superiorly in macula [facility]-2024 Table formatting fro m the original result was not included. HVF OD Reliability Fovea MD Interp 12/19/2023 Excellent 26 dB, decreased -4.20 Moderate central VF depression in pattern deviation, cecocentral? 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 on pattern deviation 12/05/24 Low, high fixation losses 33, wnl -1.02 Mild paracentral VF defect, improved VF after capsulotomy, but low reliability HVF OS Reliability Fovea MD Interp 12/19/2023 Low, high fixation losses 32 dB, mildly decreased -1.99 Mild scattered non-specific threshold loss 03/26/24 Excellent 35 dB, WNL -0.19 Mild scattered non-specific threshold loss, stable 06/06/24 good 32, mildly decreased -1.35 Essentially full VF 12/05/24 good 33, wnl -1.44 Mild superior nasal VF depression, paracentral VF depression, possible mild interval worsening [facility]narrative[facility] 10-20-2024 ED Prov Note ED PROVIDER NOTE [facility] EMERGENCY DEPARTMENT NAME: Afsaneh Bowers AGE: 64 y.o. : 1960 VISIT DATE: 10/20/2024 CSN: [id number] PCP: Chilango Welsh MD Chief Complaint Patient presents with Dizziness Six 4-year-old male patient presents ER for evaluation of lightheadedness. Patient states he is felt lightheaded and fatigued over the last few days. Has been recovering from an upper respiratory infection. No fevers chest pain or difficulty breathing, no nausea emesis, no headaches or vision change, no dysarthria or dysphagia. Past Medical History: Diagnosis Date Kidney calculi Past Surgical History: Procedure Laterality Date AORTA SURGERY ARTHROSCOPY SHOULDER W/ ROTATOR CUFF REPAIR Left 11/08/2021 Procedure: LEFT SHOULDER ARTHROSCOPY WITH ROTATOR CUFF REPAIR; Surgeon: Asaf Torres MD; Location: [facility] Main OR; Service: Orthopedic CARDIAC SURGERY KNEE SURGERY left scope No family history on file. Social History Socioeconomic History Marital status: Tobacco Use Smoking status: Never Smokeless tobacco: Never Vaping Use Vaping status: Never Used Substance and Sexual Activity Alcohol use: No Drug use: Never Social Drivers of Health Food Insecurity: No Food Insecurity (10/20/2023) [facility] from [facility] Hunger Vital Sign Worried About Running Out of Food in the Last Year: Never true Ran Out of Food in the Last Year: Never true Transportation Needs: No Transportation Needs (10/20/2023) Received from [facility] PRAPARE - Transportation Lack of Transportation (Medical): No Lack of Transportation (Non-Medical): No Housing Stability: Low Risk (10/20/2023) Received from [facility] Housing Stability Vital Sign Unable to Pay for Housing in the Last Year: No Number of Places Lived in the Last Year: 1 Unstable Housing in the Last Year: No Previous Medications Medication Sig albuterol 90 mcg/actuation inhaler Inhale 2 (two) puffs every 6 (six) hours as needed for wheezing . aspirin 325 MG tablet Take 1 (one) tablet (325 mg total) by mouth daily . carvediloL (COREG) 6.25 MG tablet Take 1 (one) tablet (6.25 mg total) by mouth 2 (two) times a day with meals . cyanocobalamin (B-12) 100 MCG tablet Take 1 (one) tablet (100 mcg total) by mouth daily . FA/mv,Ca,iron,min/lycop indu/lut (MULTIVITAL ORAL) Take 1 capsule by mouth daily . ketorolac (TORADOL) 10 mg tablet Take 1 (one) tablet (10 mg total) by mouth every 6 (six) hours as needed for pain . losartan (COZAAR) 25 MG tablet Take 1 (one) tablet (25 mg total) by mouth daily . ondansetron (ZOFRAN-ODT) 4 MG disintegrating tablet Dissolve 1 (one) tablet (4 mg total) on top of tongue every 8 (eight) hours as needed for nausea . rosuvastatin (CRESTOR) 20 MG tablet Take 1 (one) tablet (20 mg total) by mouth daily . No Known Allergies Review of Systems All other systems reviewed and are negative. Patient Vitals for the past 24 hrs: BP Temp Temp src Pulse Resp SpO2 Height Weight 10/20/24 1055 102/64 97.9 degrees F (36.6 degrees C) Temporal 60 18 95 % 6' 93 kg (205 lb) Physical Exam Vitals reviewed. Constitutional: Appearance: Normal appearance. HENT: Head: Normocephalic and atraumatic. Right Ear: Tympanic membrane and external ear normal. Left Ear: Tympanic membrane and external ear normal. Nose: Nose normal. Mouth/Throat: Mouth: Mucous membranes are moist. Pharynx: Oropharynx is clear. Eyes: Extraocular Movements: Extraocular movements intact. Pupils: Pupils are equal, round, and reactive to light. Cardiovascular: Rate and Rhythm: Normal rate and regular rhythm. Pulses: Normal pulses. Heart sounds: Normal heart sounds. Musculoskeletal: Cervical back: Normal range of motion and neck supple. Pulmonary: Effort: Pulmonary effort is normal. Breath sounds: Normal breath sounds. Abdominal: General: Abdomen is flat. Palpations: Abdomen is soft. Skin: General: Skin is dry. Capillary Refill: Capillary refill takes less than 2 seconds. Neurological: General: No focal deficit present. Mental Status: He is alert and oriented to person, place, and time. Psychiatric: Mood and Affect: Mood normal. Behavior: Behavior normal. Laboratory & Radiographic Imaging (if done): No results found for this visit on 10/20/24. No orders to display EKG 12-lead Date/Time: 10/20/2024 11:03 AM Performed by: Shellie Ceron MD Authorized by: Shellie Ceron MD BPM: 60 Comments: Sinus rhythm, rate 60, normal axis, no STEMI Medical Decision Making Overall well-appearing patient presents ER for evaluation of lightheadedness. On arrival to stable, appearing, no acute distress. Di (more content not included)... [facility] LG Jt Injection/Arthrocentes is: L kneeon 10-15-2024 Asaf Torres MD 10/15/2024 8:55 PM LG Jt Injection/Arthrocentesi s: L knee Performed by: Asaf Torres MD Authorized by: Asaf Torres MD [facility] [id number] - Large Joint Arthrocentesis: Consent given by: Patient Supporting Documentation: Indications: Pain Procedure Details: Location: Knee Site: L knee Needle size: 22 G Approach: Lateral Anesthetic used: Lidocaine 1% Anesthetic amount (mL): 1 Patient tolerance: Patient tolerated the procedure well with no immediate complications [facility] LG Jt Injection/Arthrocentes is: R kneeon 10-15-2024 Asaf oTrres MD 10/15/2024 8:55 PM LG Jt Injection/Arthrocentesi s: R knee Performed by: Asaf Torres MD Authorized by: Asaf Torres MD [facility] [id number] - Large Joint Arthrocentesis: Consent given by: Patient Supporting Documentation: Indications: Pain Procedure Details: Location: Knee Site: R knee Needle size: 20 G Approach: Lateral Anesthetic used: Lidocaine 1% Anesthetic amount (mL): 1 Patient tolerance: Patient tolerated the procedure well with no immediate complications [facility] CREATININE FINGERSTICKon CREATININE WB < 1.0 Normal 0.70-1.30 [facility] Comment on above: Performed By: #### L 9100.0200 #### [facility] [address] [place], [place], [id number] EGFR WB > 60.0000 Normal >60 [facility] Comment on above: Performed By: #### L 9100.0200 #### [facility] [address] [place], [place], [address] MRI Abd WITH and W/O Contras ton 10-07-2024 MRI Abd WITH and W/O Contrast [facility] Imaging Services [address] [place] [address] MRI Abd WITH and W/O Contrast MR#: [id number] Acct: [id number] Name: AFSANEH BOWERS Rep #: [id number] : 1960 M 64 From: Gilmar Ayers DO PCP: Dr. Chilango Welsh MD Status: REG CLI Study: MRI Abd WITH and W/O Contrast Date of Exam: Exam# [id number] Ordering Dr: Chilango Welsh MD ADDENDUM by Dr. Gilmar Ayers DO on 10/21/24 at 2221 19 cc of Clariscan was administered. Reading Location: [facility] 10/21/242221 Date cc: Dr. Chilango Welsh MD * Signed PROCEDURE: MRI ABD WITH AND W/O CONTRAST TECHNIQUE: Multiplanar, multisequence MRI of the upper abdomen without and with intravenous gadolinium-based contrast. CONTRAST: COMPARISON: None. FINDINGS: Liver: Partially visualized. No suspicious lesions. Biliary: Partially visualized. Grossly unremarkable. Pancreas: No mass or ductal dilation. Spleen: Partially visualized. Adrenals: 1.4 cm left adrenal mass with loss of signal on in and out of phase, consistent with adenoma. Kidneys: There is a 2.5 cm heterogeneous T1 dark and T2 bright nonenhancing left exophytic cystic lesion, likely representing benign cysts. Small benign right renal cysts.. Peritoneum / Retroperitoneum: No ascites. Lymph Nodes: No upper abdominal lymphadenopathy. Major Vessels: The abdominal aorta and IVC are unremarkable. The portal and hepatic veins are patent. Bones: Bone marrow signal is unremarkable. MRI/MRI Abd WITH and W/O Contrast IMPRESSION: Benign-appearing renal cysts as described above. 1.4 cm left adrenal adenoma. Reading Location: [facility] CC: Dr. Chilango Welsh MD Oliving Machine Operator: Signed Normal [facility] Chest WITH Contraston 2024 Chest WITH Contrast [facility] Imaging Services [address] [place] [address] [id number] Chest WITH Contrast MR#: [id number] Acct: [id number] Name: AFSANEH BOWERS Rep #: [id number] : 1960 M 63 From: Soy Hatch MD PCP: Dr. Chilango Welsh MD Status: REG CLI Study: Chest WITH Contrast Date of Exam: 09/29/24 Exam# [id number] Ordering Dr: Chilanog Welsh MD ADDENDUM by Dr. Soy Hatch MD on 09/29/24 at 2100 [id number] EXAM: CT CHEST WITH INTRAVENOUS CONTRAST CLINICAL INDICATION: PULMONARY NODULE TECHNIQUE: Helically acquired images were obtained of the chest with intravenous contrast. CTDIvol = ( 17.08 ) mGy, DLP = ( 546.57 ) mGycm This CT exam was performed using one or more of the following dose reduction techniques: automated exposure control, adjustment of the mA and/or kV according to patient size, and/or use of iterative reconstruction technique. CONTRAST: IV 100mL Isovue-370 COMPARISON: No relevant prior studies available. FINDINGS: LUNGS AND PLEURAL SPACES: Circumscribed noncalcified the lateral segment right middle lobe subpleural nodule anterolaterally measuring 6 mm (average). No calcifications associated. No pneumothorax. HEART: See below. MEDIASTINUM: Unremarkable. No mediastinal or hilar adenopathy. Esophagus is unremarkable. No hiatal hernia. THYROID: Unremarkable. No thyroid lesions. BONES/JOINTS: Moderate multivessel calcific coronary arthrosclerosis. No cardiomegaly or pericardial effusion. No suspicious lytic or blastic abnormality. VASCULATURE: Unremarkable. Thoracic aorta is non-dilated. No thoracic aortic dissection. No obvious central pulmonary embolism although this study was not performed with the pulmonary embolism protocol. ABDOMEN: 1.9 cm left adrenal lipid rich adenoma. 09/29/24 2100 Date cc: Dr. Chilango Welsh MD * Signed ADDENDUM by Dr. Soy Hatch MD on 09/29/[address]/Chest WITH Contrast IMPRESSION: Indeterminate 6 mm pulmonary nodule at the right middle lobe. Given absence of any prior studies for comparison/to document stability, recommend follow-up CT in 6 months to document stability. AIDOC was utilized to assist in identifying pertinent positive findings. N.B. : Irene uCeto RN, confirmed on 10/01/2024 09:48:07 (ET) that the healthcare facility has received the radiology report. Electronically Signed: Soy Hatch MD at 21:00 EST , 10/01/24954 Date cc: Dr. Chilango Welsh MD * Signed ACR Level 3 findings have been noted. An addendum which confirms receipt of the report will follow. [id number] EXAM: CT CHEST WITH INTRAVENOUS CONTRAST CLINICAL INDICATION: PULMONARY NODULE TECHNIQUE: Helically acquired images were obtained of the chest with intravenous contrast. CTDIvol = ( 17.08 ) mGy, DLP = ( 546.57 ) mGycm This CT exam was performed using one or more of the following dose reduction techniques: automated exposure control, adjustment of the mA and/or kV according to patient size, and/or use of iterative reconstruction technique. CONTRAST: IV 100mL Isovue-370 COMPARISON: No relevant prior studies available. FINDINGS: LUNGS AND PLEURAL SPACES: Circumscribed noncalcified the lateral segment right middle lobe subpleural nodule anterolaterally measuring 6 mm (average). No calcifications associated. No pneumothorax. HEART: See below. MEDIASTINUM: Unremarkable. No mediastinal or hilar adenopathy. Esophagus is unremarkable. No hiatal hernia. THYROID: Unremarkable. No thyroid lesions. BONES/JOINTS: Moderate multivessel calcific coronary arthrosclerosis. No cardiomegaly or pericardial effusion. No suspicious lytic or blastic abnormality. VASCULATURE: Unremarkable. Thoracic aorta is non-dilated. No thoracic aortic dissection. No obvious central pulmonary embolism although this study was not performed with the pulmonary embolism protocol. ABDOMEN: 1.9 cm left adrenal lipid rich adenoma. CT/Chest WITH Contrast IMPRESSION: Indeterminate 6 mm pulmonary nodule at the right middle lobe. Given absence of any prior studies for comparison/to document stability, recommend follow-up CT in 6 months to document stability. AIDOC was utilized to assist in identifying pertinent positive findings. Electronically Signed: Soy Hatch MD at 21:00 EST , CC: Dr. Chilango Welsh MD Oliving Machine Operator: Signed [facility] LG Jt Injection/Arthrocentes is: L kneeon 08-21-2024 Asaf Torres MD 08/21/2024 7:56 AM LG Jt Injection/Arthrocentesi s: L knee Performed by: Asaf Torres MD Authorized by: Asaf Torres MD CPT 24364 - Large Joint Arthrocentesis: Consent given by: Patient Supporting Documentation: Indications: Pain Procedure Details: Location: Knee Site: L knee Needle size: 20 G Approach: Lateral Anesthetic used: Lidocaine 1% Anesthetic amount (mL): 1 Patient tolerance: Patient tolerated the procedure well with no immediate complications [facility] LG Jt Injection/Arthrocentes is: R kneeon 08-21-2024 Asaf Torres MD 08/21/2024 7:56 AM LG Jt Injection/Arthrocentesi s: R knee Performed by: Asaf Torres MD Authorized by: Asaf Torres MD CPT 88666 - Large Joint Arthrocentesis: Consent given by: Patient Supporting Documentation: Indications: Pain Procedure Details: Location: Knee Site: R knee Needle size: 20 G Approach: Lateral Anesthetic used: Lidocaine 1% Anesthetic amount (mL): 1 Patient tolerance: Patient tolerated the procedure well with no immediate complications [facility] CT ABDOMEN PELVIS WITHOUT CO NTRASTon 08-20-2024 CT ABDOMEN PELVIS WITHOUT CONTRAST EXAMINATION: CT ABDOMEN PELVIS WITHOUT CONTRAST HISTORY: ORDERING SYSTEM PROVIDED HISTORY: Abdominal/flank pain, stone suspected. TECHNOLOGIST PROVIDED HISTORY: Illness/Other. Reason for exam: Abdominal/flank pain, stone suspected. Encounter Type: Initial. Additional signs and symptoms: None. COMPARISON: None. TECHNIQUE: CT examination of the abdomen and pelvis without IV contrast. Coronal and sagittal reformations were performed. Dose reduction techniques were achieved by using automated exposure control and/or adjustment of mA and/or kV according to patient size and/or use of iterative reconstruction technique. FINDINGS: LOWER CHEST: Right middle lobe 6 mm subpleural pulmonary nodule. Left lower lobe basilar 1.5 cm subpleural nodularity. ABDOMEN: Liver: Normal. Bile ducts: Normal caliber. Gallbladder: No calcified gallstones. Normal caliber wall. Pancreas: Normal. Spleen: Normal. Adrenals: Normal right adrenal gland. Low-density left adrenal nodule measures 1.8 x 1.9 cm with 2 Hounsfield units. Findings compatible with adrenal adenoma. Kidneys: Mild right hydronephrosis. No left hydronephrosis. A few punctate nonobstructing right renal calculi. Left lower pole exophytic isodense lesion measures 2.6 x 2.9 x 2.4 cm with 42 Hounsfield units. PELVIS: Reproductive organs: Prostatomegaly. Ureters: Mild right hydroureter with proximal ureteral obstructing calculus measuring 3 x 3 mm. Normal caliber left ureter. Bladder: Decompressed. OTHER ABDOMEN AND PELVIS: Bowel: No bowel obstruction. No appendicitis. Sigmoid colonic diverticulosis. Small sliding-type hiatal hernia. Peritoneum: No free intraperitoneal air. No ascites or fluid collection. Vessels: Normal caliber abdominal aorta and iliac arteries with mild atherosclerotic calcification. Lymph nodes: No enlarged lymph nodes. Abdominal wall: Small fat-containing umbilical hernia. Osseous structures: No destructive lesions. IMPRESSION: Mild right hydroureteronephrosis with proximal ureteral obstructing calculus measuring 3 x 3 mm. Punctate nonobstructing right renal calculi. Indeterminate exophytic left renal lesion measuring up to 2.9 cm. Recommend MRI evaluation. Right middle lobe 6 mm subpleural nodule. Left basilar 1.5 cm pleural nodularity versus nodular atelectasis. Recommend [address] followup. Left adrenal adenoma. Sigmoid colonic diverticulosis. Prostatomegaly. [employer] Workstation ID: [id number] Dictated by: ALEJANDRA CARVER on SunAug 20, 2024 9:35:58 AM EST Transcribed by: MIGUEL PIRES on SunAug 20, 2024 9:55:40 AM EST Finalized by: ALEJANDRA CARVER on SunAug 20, 2024 11:04:14 PM EST Normal [facility] Comment on above: Order Comment: Injur y/Trauma or Illness?:Illness/Other How long have you had these symptoms (acute/chronic)?:Acute Reason for exam?:Abdominal/flank pain, stone suspected Type of Exam?:Initial Additional signs and symptoms?:none ED Prov Noteon 08-20-2024 ED Prov Note ED PROVIDER NOTE [facility] EMERGENCY DEPARTMENT NAME: Afsaneh Bowers AGE: 63 y.o. : 1960 VISIT DATE: 08/20/2024 CSN: [id number] PCP: Chilango Welsh MD Chief Complaint Patient presents with Flank Pain 63-year-old male presents with right-sided flank pain that started around 2 AM this morning. He says it reminds him of a kidney stone. He has had multiple kidney stones in the past. He had some associated dry heaves. Pain is sharp and stabbing and located in the right flank region. Flank Pain Past Medical History: Diagnosis Date Kidney calculi Past Surgical History: Procedure Laterality Date AORTA SURGERY ARTHROSCOPY SHOULDER W/ ROTATOR CUFF REPAIR Left 11/08/2021 Procedure: LEFT SHOULDER ARTHROSCOPY WITH ROTATOR CUFF REPAIR; Surgeon: Asaf Torres MD; Location: [facility] Main OR; Service: Orthopedic CARDIAC SURGERY KNEE SURGERY left scope History reviewed. No pertinent family history. Social History Socioeconomic History Marital status: Tobacco Use Smoking status: Never Smokeless tobacco: Never Vaping Use Vaping status: Never Used Substance and Sexual Activity Alcohol use: No Drug use: Never Social Drivers of Health Food Insecurity: No Food Insecurity (10/20/2023) [facility] Hunger Vital Sign Worried About Running Out of Food in the Last Year: Never true Ran Out of Food in the Last Year: Never true Transportation Needs: No Transportation Needs (10/20/2023) Received from [facility] PRAPARE - Transportation Lack of Transportation (Medical): No Lack of Transportation (Non-Medical): No Housing Stability: Low Risk (10/20/2023) Received from [facility] Housing Stability Vital Sign Unable to Pay for Housing in the Last Year: No Number of Places Lived in the Last Year: 1 Unstable Housing in the Last Year: No Previous Medications Medication Sig aspirin 325 MG tablet Take 1 (one) tablet (325 mg total) by mouth daily . carvediloL (COREG) 6.25 MG tablet Take 1 (one) tablet (6.25 mg total) by mouth 2 (two) times a day with meals . losartan (COZAAR) 25 MG tablet Take 1 (one) tablet (25 mg total) by mouth daily . albuterol 90 mcg/actuation inhaler Inhale 2 (two) puffs every 6 (six) hours as needed for wheezing . cyanocobalamin (B-12) 100 MCG tablet Take 1 (one) tablet (100 mcg total) by mouth daily . FA/mv,Ca,iron,min/lycop indu/lut (MULTIVITAL ORAL) Take 1 capsule by mouth daily . rosuvastatin (CRESTOR) 20 MG tablet Take 1 (one) tablet (20 mg total) by mouth daily . No Known Allergies Review of Systems Genitourinary: Positive for flank pain. Patient Vitals for the past 24 hrs: BP Temp Temp src Pulse Resp SpO2 Height Weight 08/20/24 0835 139/77 97.8 degrees F (36.6 degrees C) Axillary (!) 52 16 100 % 6' 90.7 kg (200 lb) Physical Exam Vitals and nursing note reviewed. Constitutional: Appearance: Normal appearance. Comments: Patient appears to be uncomfortable/flank pain HENT: Head: Normocephalic and atraumatic. Nose: Nose normal. Eyes: Extraocular Movements: Extraocular movements intact. Pupils: Pupils are equal, round, and reactive to light. Musculoskeletal: General: Normal range of motion. Cervical back: Normal range of motion. Skin: General: Skin is warm and dry. Neurological: General: No focal deficit present. Mental Status: He is alert and oriented to person, place, and time. Psychiatric: Mood and Affect: Mood normal. Behavior: Behavior normal. Laboratory & Radiographic Imaging (if done): No results found for this visit on 08/20/24. CT Abdomen Pelvis Without Contrast (Results Pending) Procedures Medical Decision Making CBC and BMP were essentially normal. The urine showed moderate blood, and no evidence of infection. CT scan of the abdomen and pelvis showed 3 mm x 3 mm proximal ureteral stone with some hydronephrosis. Patient was given Zofran and Toradol here in the ED, which did help his pain. It appears this patient has a ureteral stone and renal colic. Will refer to urology. Rx for Flomax and p.o. Toradol written. Will discharge to home. ED Course as of 08/20/24 0940 SunAug 20, [address] Abdomen Pelvis Without Contrast [] ED Course User Index [] Nathan Medel T., DO The patient has been informed that they may have pre-hypertension or hypertension based on a blood pressure reading in the Emergency Department. I recommend that the patient call the primary care provider listed on their discharge instructions or a physician of their choice as soon as possible to arrange follow-up in the next 4 weeks for further evaluation of possible pre-hypertension or hypertension. . Clinical (more content not included)... Normal [facility] POC BASIC METABOLIC PANEL - [facility] Chloride [Moles/Vol] 106 mmol/L Normal 98-108 [facility] Comment on above: Order Comment: [facility] Laboratory Services has implemented the eGFR calculation approach that does not have a coefficient for race that conforms to the NKF-ASN Task Force Recommendations. CO2 [Moles/Vol] 25 mmol/L Normal 21-32 [facility] Comment on above: Order Comment: [facility] Laboratory Services has implemented the eGFR calculation approach that does not have a coefficient for race that conforms to the NKF-ASN Task Force Recommendations. Creatinine [Mass/Vol] 0.94 mg/dL Normal 0.80-1.30 [facility] Comment on above: Order Comment: [facility] Laboratory Services has implemented the eGFR calculation approach that does not have a coefficient for race that conforms to the NKF-ASN Task Force Recommendations. Glucose [Mass/Vol] 111 mg/dL High 65-99 [facility] Comment on above: Order Comment: [facility] Laboratory Services has implemented the eGFR calculation approach that does not have a coefficient for race that conforms to the NKF-ASN Task Force Recommendations. POC GFR 91 mL/min/1.73 m2 Normal >=60 [facility] Comment on above: Order Comment: [facility] Laboratory Services has implemented the eGFR calculation approach that does not have a coefficient for race that conforms to the NKF-ASN Task Force Recommendations. Result Comment: Marysol mated GFR was calculated using the 2020 CKD-EPI creatinine equation. POC IONIZED CALCIUM 4.5 mg/dL Normal 4.5-5.3 [facility] Comment on above: Order Comment: [facility] Laboratory Services has implemented the eGFR calculation approach that does not have a coefficient for race that conforms to the NKF-ASN Task Force Recommendations. Potassium [Moles/Vol] 4.4 mmol/L Normal 3.5-5.1 [facility] Comment on above: Order Comment: [facility] Laboratory Services has implemented the eGFR calculation approach that does not have a coefficient for race that conforms to the NKF-ASN Task Force Recommendations. Sodium [Moles/Vol] 143 mmol/L Normal 135-145 [facility] Comment on above: Order Comment: [facility] Laboratory Services has implemented the eGFR calculation approach that does not have a coefficient for race that conforms to the NKF-ASN Task Force Recommendations. Urea nitrogen [Mass/Vol] 21 mg/dL Normal 8-25 [facility] Comment on above: Order Comment: [facility] Laboratory Services has implemented the eGFR calculation approach that does not have a coefficient for race that conforms to the NKF-ASN Task Force Recommendations. POC CBC AND DIFFERENTIALon 10-21-2023 BASOPHILS ABSOLUTE COUNT 0.01 K/mcL Normal 0.00-0.30 [facility] Basophils/100 WBC (Bld) 0.1 % Normal [facility] Eosinophils (Bld) [#/Vol] 0.40 10*3/uL Normal 0.00-0.50 [facility] Eosinophils/100 WBC (Bld) 5.8 % Normal [facility] Erythrocyte distribution width (RBC) [Ratio] 12.5 % Normal 11.6-14.8 [facility] Hematocrit (Bld) [Volume fraction] 43.9 % Normal 41.0-53.0 [facility] Hemoglobin (Bld) [Mass/Vol] 14.6 g/dL Normal 13.5-17.5 [facility] IG ABSOLUTE 0.02 K/mcL Normal 0.00-0.30 [facility] IG PERCENT 0.30 % Normal [facility] Comment on above: Result Comment: The IG parameter is the percentage of metamyelocytes, myelocytes and promyelocytes. An immature granulocyte count (IG) of 1% or more suggests the possibility of infection, an IG count of 3% is very likely related to an infection. Lymphocytes (Bld) [#/Vol] 1.60 10*3/uL Normal 0.90-4.00 [facility] Lymphocytes/100 WBC (Bld) 23.2 % Normal [facility] MCH (RBC) [Entitic mass] 29.0 pg Normal 26.0-34.0 [facility] MCV (RBC) [Entitic vol] 87.1 fL Normal 80.0-100.0 [facility] MEAN CORPUSCULAR HEMOGLOBIN CONC 33.3 g/dL Normal 31.0-37.0 [facility] Monocytes (Bld) [#/Vol] 0.66 10*3/uL Normal 0.30-0.90 [facility] Monocytes/100 WBC (Bld) 9.6 % Normal [facility] NEUTROPHILS ABSOLUTE COUNT 4.22 K/mcL Normal 1.70-7.00 [facility] Neutrophils/100 WBC (Bld) 61.0 % Normal [facility] Platelet mean volume (Bld) [Entitic vol] 9.1 fL Low 9.4-12.4 [facility] Platelets (Bld) [#/Vol] 281 10*3/uL Normal 150-400 [facility] RBC (Bld) [#/Vol] 5.04 10*6/uL Normal 4.50-5.90 [facility] WBC (Bld) [#/Vol] 6.91 10*3/uL Normal 4.50-11.00 [facility] POC URINALYSIS DIPSTICK,AUTO - RALSon 08-20-2024 POC BILIRUBIN, URINE Negative Normal Negative Gran [facility] POC BLOOD, URINE Moderate Abnormal Negative [facility] POC GLUCOSE, URINE Negative Normal Negative [facility] POC KETONES, URINE Negative Normal Negative [facility] POC LEUKOCYTE ESTERASE, URINE Negative Normal Negative [facility] POC NITRITE, URINE Negative Normal Negative [facility] POC PH, URINE 6.0 Normal 5.0-7.0 [facility] POC SPECIFIC GRAVITY >= High 1.005-1.025 [facility] POC UROBILINOGEN 0.2 mg/dL Normal < 2.0 [facility] Protein (U) [Mass/Vol] 30 mg/dL Abnormal Negative [facility] Thyroidon 08-12-2024 Thyroid [facility] Imaging Services [address] [facility] [address] Thyroid MR#: [id number] Acct: [id number] Name: AFSANEH BOWERS Rep #: [id number] : 1960 M 63 From: Yimi harmon MD PCP: Dr. Chilango Welsh MD Status: [facility] Study: Thyroid Date of Exam: 08/12/24 Exam# [id number] Ordering [place]: [place] [id number] STUDY: THYROID ULTRASOUND REASON FOR EXAM: Male, 63 years old. Thyroid nodule. TECHNIQUE: Ultrasound evaluation of the thyroid was performed with real-time and static michelle-scale imaging. COMPARISON: Comparison is made with prior study dated August 19, 2022. FINDINGS: RIGHT LOBE: The right lobe of the thyroid gland is enlarged and measures 5.4 cm x 1.8 cm x 2.8 cm. There is a homogeneous echotexture. Once again, there are 3 subcentimeter hypoechoic nodules throughout the right lobe. These are essentially unchanged. LEFT LOBE: The left lobe of the thyroid gland measures 4.5 cm x 1.9 sided by 2 cm. There is a homogeneous echotexture. There are no demonstrated solid, cystic or complex lesions. ISTHMUS: The isthmus is enlarged and measures 7 mm. Incidental note is made of a 1.1 cm x 0.6 cm x 0.4 cm right cervical lymph node. US/Thyroid IMPRESSION: Stable enlargement of the right lobe of the thyroid with the 3 stable nodules within. Electronically Signed: Yimi Jensen MD at 13:03 EST , CC: Dr. 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, [address] Albumin/Globulin [Mass ratio] 0.9 {ratio} Normal 0.9-2.4 [facility] Comment on above: Performed By: #### L 501.5200, L500.4050, L501.9520, L500.4100 ####[facility] [address] [place], [address] ALK P 80 U/L Normal 45-117 [facility] Comment on above: Performed By: #### L 501.5200, L500.4050, L501.9520, L500.4100 ####[facility] [address] [place], [address] ALT [Catalytic activity/Vol] 43 U/L Normal 16-61 [facility] Comment on above: Performed By: #### L 501.5200, L500.4050, L501.9520, L500.4100 ####[facility] [address] [place], [address] AST [Catalytic activity/Vol] 30 U/L Normal 15-37 [facility] Comment on above: Performed By: #### L 501.5200, L500.4050, L501.9520, L500.4100 ####[facility] [address] [place], [address] Bilirubin [Mass/Vol] 0.50 mg/dL Normal 0.20-1.00 [facility] Comment on above: Result Comment: For patients on eltrombopag therapy, use of Dimension [place] TBIL is not recommended. Performed By: #### L 501.5200, L500.4050, L501.9520, L500.4100 ####[facility] [address] [place], [address] BUN/CRE 15.0 RATIO Normal 10-20 [facility] Comment on above: Performed By: #### L 501.5200, L500.4050, L501.9520, L500.4100 ####[facility] [address] [place], [address] CA,Total 9.2 mg/dL Normal 8.5-10.1 [facility] Comment on above: Performed By: #### L 501.5200, L500.4050, L501.9520, L500.4100 ####[facility] [address] [place], [address] Chloride [Moles/Vol] 107 mmol/L Normal 98-107 [facility] Comment on above: Performed By: #### L 501.5200, L500.4050, L501.9520, L500.4100 ####[facility] [address] [place], [address] CO2 [Moles/Vol] 27.0 mmol/L Normal 21.0-32.0 [facility] Comment on above: Performed By: #### L 501.5200, L500.4050, L501.9520, L500.4100 ####[facility] [address] [place], [address] Creatinine [Mass/Vol] 1.07 mg/dL Normal 0.70-1.30 [facility] Comment on above: Result Comment: The validity of the calculated GFR GFRAA in patients over 70 years has not been determined. Clinical correlation is essential. Performed By: #### L 501.5200, L500.4050, L501.9520, L500.4100 ####[facility] [address] [place], [address] EST GFR - AA 89 mL/min Normal >60 [facility] Comment on above: Result Comment: Afri can Cymro GFR Calc Performed By: #### L 501.5200, L500.4050, L501.9520, L500.4100 ####[facility] [address] [place], [address] GAP 6 Normal 5-15 [facility] Comment on above: Performed By: #### L 501.5200, L500.4050, L501.9520, L500.4100 ####[facility] [address] [place], [address] GFR/1.73 sq M.predicted among non-blacks MDRD (S/P/Bld) [Vol rate/Area] 74 mL/min/{1.73_m2} Normal >60 [facility] Comment on above: Result Comment: Non- GFR Calc Performed By: #### L 501.5200, L500.4050, L501.9520, L500.4100 ####[facility] [address] [place], [address] Globulin (S) [Mass/Vol] 3.9 g/dL Normal 2.2-4.2 [facility] Comment on above: Performed By: #### L 501.5200, L500.4050, L501.9520, L500.4100 ####[facility] [address] [place], [address] Glucose [Mass/Vol] 85 mg/dL Normal 74-106 [facility] Comment on above: Performed By: #### L 501.5200, L500.4050, L501.9520, L500.4100 ####[facility] [address] [place], [address] Potassium [Moles/Vol] 4.1 mmol/L Normal 3.5-5.1 [facility] Comment on above: Performed By: #### L 501.5200, L500.4050, L501.9520, L500.4100 ####[facility] [address] [place], [address] Sodium [Moles/Vol] 140 mmol/L Normal 136-145 [facility] Comment on above: Performed By: #### L 501.5200, L500.4050, L501.9520, L500.4100 ####[facility] [address] [place], [address] T PROT 7.4 g/dL Normal 6.4-8.2 [facility] Comment on above: Performed By: #### L 501.5200, L500.4050, L501.9520, L500.4100 ####[facility] [address] [place], [address] Urea nitrogen [Mass/Vol] 16 mg/dL Normal 7-18 [facility] Comment on above: Performed By: #### L 501.5200, L500.4050, L501.9520, L500.4100 ####[facility] [address] [place], [address] Lipid Profileon 08-06-2024 Cholesterol [Mass/Vol] 117 mg/dL Normal 200 [facility] Comment on above: Result Comment: <200 mg/dL Desirable 200-240 mg/dL Borderline >240 mg/dL High Risk Performed By: #### L 501.5200, L500.4050, L501.9520, L500.4100 ####[facility] [address] [place], [address] Cholesterol in HDL [Mass/Vol] 40 mg/dL Normal [facility] Comment on above: Result Comment: The drugs N-Acetylcysteine and Metamizole may falsely depress this assay. Reference Range HDL <40 mg/dL Low HDL Cholesterol HDL >or= 60 mg/dL High HDL Cholesterol Performed By: #### L 501.5200, L500.4050, L501.9520, L500.4100 ####[facility] [address] [place], [address] Cholesterol in LDL [Mass/Vol] 64 mg/dL Normal 0-130 [facility] Comment on above: Performed By: #### L 501.5200, L500.4050, L501.9520, L500.4100 ####[facility] [address] [place], [address] Cholesterol in VLDL [Mass/Vol] 13 mg/dL Normal 5-40 [facility] Comment on above: Performed By: #### L 501.5200, L500.4050, L501.9520, L500.4100 ####[facility] [address] [place], [address] Triglyceride [Mass/Vol] 63 mg/dL Normal [facility] Comment on above: Result Comment: The drugs N-Acetylcysteine and Metamizole may falsely depress this assay. Serum Triglycerides Reference Interval Normal <150 mg/dL Borderline high 150 - 199 mg/dL High 200 - 499 mg/dL Very High > or = 500 mg/dL Performed By: #### L 501.5200, L500.4050, L501.9520, L500.4100 ####[facility] [address] [place], [address] Magnesiumon 08-06-2024 Magnesium [Mass/Vol] 2.5 mg/dL Normal 1.6-2.6 [facility] Comment on above: Performed By: #### L 501.5200, L500.4050, L501.9520, L500.4100 ####[facility] [address] [place], [address] Thyroid Stim Hormone (TSH)on 08-06-2024 TSH 0.537 uIU/mL Normal 0.358-3.740 [facility] Comment on above: Performed By: #### L 501.5200, L500.4050, L501.9520, L500.4100 ####[facility] [address] [place], [address] CBC W/Diff, Automatedon 12-0 3-2023 Absolute Lymph 1.49 X10 3/uL Normal 0.83-4.51 [facility] Comment on above: Order Comment: Order Date: 08/05/24Order Info: 018- - CBCD Performed By: #### L 100.0100, L500.4100, L500.4050 ####[facility] [address] [place], [address] Absolute Neut 6.7 X10 3/uL Normal 2.0-7.7 [facility] Comment on above: Order Comment: Order Date: 08/05/24Order Info: 018- - CBCD Performed By: #### L 100.0100, L500.4100, L500.4050 ####[facility] [address] [place], [address] Basophils/100 WBC (Bld) 1.0 % Normal 0-1 [facility] Comment on above: Order Comment: Order Date: 08/05/24Order Info: 018- - CBCD Performed By: #### L 100.0100, L500.4100, L500.4050 ####[facility] [address] [place], [address] Eosinophils/100 WBC (Bld) 2.9 % Normal 0-5 [facility] Comment on above: Order Comment: Order Date: 08/05/24Order Info: [id number] - CBCD Performed By: #### L 100.0100, L500.4100, L500.4050 ####[facility] [address] [place], [address] Erythrocyte distribution width (RBC) [Ratio] 12.3 % Normal 11.6-14.6 [facility] Comment on above: Order Comment: Order Date: 08/05/24Order Info: [id number] - CBCD Performed By: #### L 100.0100, L500.4100, L500.4050 ####[facility] [address] [place], [address] Hematocrit (Bld) [Volume fraction] 45.6 % Normal 40-54 [facility] Comment on above: Order Comment: Order Date: 08/05/24Order Info: [id number] - CBCD Performed By: #### L 100.0100, L500.4100, L500.4050 ####[facility] [address] [place], [address] Hemoglobin (Bld) [Mass/Vol] 14.5 g/dL Normal 13.0-16.5 [facility] Comment on above: Order Comment: Order Date: 08/05/24Order Info: [id number] - CBCD Performed By: #### L 100.0100, L500.4100, L500.4050 ####[facility] [address] [place], [address] IG% 0.700 Normal 0.0-0.9 [facility] Comment on above: Order Comment: Order Date: 08/05/24Order Info: [id number] - CBCD Result Comment: IG% - Immature Granulocytes (promyelocytes, myelocytes and metamyelocytes) > 1% indicates that a LEFT SHIFT is Present. Performed By: #### L 100.0100, L500.4100, L500.4050 ####[facility] [address] [place], [address] Lymphocytes/100 WBC (Bld) 15.9 % Low 19-41 [facility] Comment on above: Order Comment: Order Date: 08/05/24Order Info: [id number] - CBCD Performed By: #### L 100.0100, L500.4100, L500.4050 ####[facility] [address] [place], [address] MCH (RBC) [Entitic mass] 28.0 pg Normal 27.0-32.0 [facility] Comment on above: Order Comment: Order Date: 08/05/24Order Info: [id number] - CBCD Performed By: #### L 100.0100, L500.4100, L500.4050 ####[facility] [address] [place], [address] MCHC (RBC) [Mass/Vol] 31.8 g/dL Low 32-36 [facility] Comment on above: Order Comment: Order Date: 08/05/24Order Info: [id number] - CBCD Performed By: #### L 100.0100, L500.4100, L500.4050 ####[facility] [address] [place], [address] MCV (RBC) [Entitic vol] 88.0 fL Normal 80-94 [facility] Comment on above: Order Comment: Order Date: 08/05/24Order Info: 018- - CBCD Performed By: #### L 100.0100, L500.4100, L500.4050 ####[facility] [address] [place], [address] Monocytes/100 WBC (Bld) 8.1 % Normal 0-10 [facility] Comment on above: Order Comment: Order Date: 08/05/24Order Info: [id number] - CBCD Performed By: #### L 100.0100, L500.4100, L500.4050 ####[facility] [address] [place], [address] Neutrophils/100 WBC (Bld) 71.4 % High 47-70 [facility] Comment on above: Order Comment: Order Date: 08/05/24Order Info: [id number] - CBCD Performed By: #### L 100.0100, L500.4100, L500.4050 ####[facility] [address] [place], [address] Nucleated RBC (Bld) [#/Vol] 0 10*3/uL Normal 0-5 [facility] Comment on above: Order Comment: Order Date: 08/05/24Order Info: [id number] - CBCD Performed By: #### L 100.0100, L500.4100, L500.4050 ####[facility] [address] [place], [address] Platelet mean volume (Bld) [Entitic vol] 10.1 fL Normal 6.2-12.0 [facility] Comment on above: Order Comment: Order Date: 08/05/24Order Info: 018- - CBCD Performed By: #### L 100.0100, L500.4100, L500.4050 ####[facility] [address] [place], [address] Platelets (Bld) [#/Vol] 376 10*3/uL Normal 150-450 [facility] Comment on above: Order Comment: Order Date: 08/05/24Order Info: 018- - CBCD Performed By: #### L 100.0100, L500.4100, L500.4050 ####[facility] [address] [place], [address] RBC (Bld) [#/Vol] 5.18 10*6/uL Normal 4.6-6.2 [facility] Comment on above: Order Comment: Order Date: 08/05/24Order Info: [id number] - CBCD Performed By: #### L 100.0100, L500.4100, L500.4050 ####[facility] [address] [place], [address] RDW SD 39.8 fl Normal 35.1-43.9 [facility] Comment on above: Order Comment: Order Date: 08/05/24Order Info: [id number] - CBCD Performed By: #### L 100.0100, L500.4100, L500.4050 ####[facility] [address] [place], [address] WBC (Bld) [#/Vol] 9.4 10*3/uL Normal 4.4-11.0 [facility] [place] Comment on above: Order Comment: Order Date: 08/05/24Order Info: [id number]- - CBCD Performed By: #### L 100.0100, L500.4100, L500.4050 ####[facility] [address] [place], [address] Comprehensive Metabolic Prof ilon 08-05-2024 ALB Normal 3.2-5.0 [facility] Comment on above: Order Comment: Order Date: 08/05/24Order Info: [id number] - CMPOrder Info: [id number] - LIPIDOrder Info: [id number] - MGOrder Info: [id number] - TSH Result Comment: TUBE S WERE NOT SPUN DOWN WITHIN TWO HOURS PER POLICY. SAMPLES WILL NEED RECOLLECTED. EMAILS HAVE BEEN SENT TO LAB STAFF. Performed By: #### L 100.0100, L500.4100, L500.4050 ####[facility] [address] [place], [address] ALK P Normal 45-117 [facility] Comment on above: Order Comment: Order Date: 08/05/24Order Info: [id number] - CMPOrder Info: [id number] - LIPIDOrder Info: [id number] - MGOrder Info: [id number] - TSH Result Comment: TUBE S WERE NOT SPUN DOWN WITHIN TWO HOURS PER POLICY. SAMPLES WILL NEED RECOLLECTED. EMAILS HAVE BEEN SENT TO LAB STAFF. Performed By: #### L 100.0100, L500.4100, L500.4050 ####[facility] [address] [place], [address] ALT Normal 16-61 [facility] Comment on above: Order Comment: Order Date: 08/05/24Order Info: [id number] - CMPOrder Info: [id number] - LIPIDOrder Info: [id number] - MGOrder Info: [id number] - TSH Result Comment: TUBE S WERE NOT SPUN DOWN WITHIN TWO HOURS PER POLICY. SAMPLES WILL NEED RECOLLECTED. EMAILS HAVE BEEN SENT TO LAB STAFF. Performed By: #### L 100.0100, L500.4100, L500.4050 ####[facility] [address] [place], [address] AST Normal 15-37 [facility] Comment on above: Order Comment: Order Date: 08/05/24Order Info: [id number] - CMPOrder Info: [id number] - LIPIDOrder Info: [id number] - MGOrder Info: [id number] - TSH Result Comment: TUBE S WERE NOT SPUN DOWN WITHIN TWO HOURS PER POLICY. SAMPLES WILL NEED RECOLLECTED. EMAILS HAVE BEEN SENT TO LAB STAFF. Performed By: #### L 100.0100, L500.4100, L500.4050 ####[facility] [address] [place], [place], [address] BUN Normal 7-18 [facility] Comment on above: Order Comment: Order Date: 08/05/24Order Info: [id number] - CMPOrder Info: [id number] - LIPIDOrder Info: [id number] - MGOrder Info: [id number] - TSH Result Comment: TUBE S WERE NOT SPUN DOWN WITHIN TWO HOURS PER POLICY. SAMPLES WILL NEED RECOLLECTED. EMAILS HAVE BEEN SENT TO LAB STAFF. Performed By: #### L 100.0100, L500.4100, L500.4050 ####[facility] [address] [place], [place], [address] BUN/CRE Normal 10-20 [facility] Comment on above: Order Comment: Order Date: 08/05/24Order Info: [id number] - CMPOrder Info: [id number] - LIPIDOrder Info: [id number] - MGOrder Info: [id number] - TSH Result Comment: TUBE S WERE NOT SPUN DOWN WITHIN TWO HOURS PER POLICY. SAMPLES WILL NEED RECOLLECTED. EMAILS HAVE BEEN SENT TO LAB STAFF. Performed By: #### L 100.0100, L500.4100, L500.4050 ####[facility] [address] [place], [address] CA,Total Normal 8.5-10.1 [facility] Comment on above: Order Comment: Order Date: 08/05/24Order Info: [id number] - CMPOrder Info: [id number] - LIPIDOrder Info: [id number] - MGOrder Info: [id number] - TSH Result Comment: TUBE S WERE NOT SPUN DOWN WITHIN TWO HOURS PER POLICY. SAMPLES WILL NEED RECOLLECTED. EMAILS HAVE BEEN SENT TO LAB STAFF. Performed By: #### L 100.0100, L500.4100, L500.4050 ####[facility] [address] [place], [place], [address] CL Normal 98-107 [facility] Comment on above: Order Comment: Order Date: 08/05/24Order Info: [id number] - CMPOrder Info: [id number] - LIPIDOrder Info: [id number] - MGOrder Info: [id number] - TSH Result Comment: TUBE S WERE NOT SPUN DOWN WITHIN TWO HOURS PER POLICY. SAMPLES WILL NEED RECOLLECTED. EMAILS HAVE BEEN SENT TO LAB STAFF. Performed By: #### L 100.0100, L500.4100, L500.4050 ####[facility] [address] [place], [address] CO2 Normal 21.0-32.0 [facility] Comment on above: Order Comment: Order Date: 08/05/24Order Info: [id number] - CMPOrder Info: [id number] - LIPIDOrder Info: [id number] - MGOrder Info: [id number] - TSH Result Comment: TUBE S WERE NOT SPUN DOWN WITHIN TWO HOURS PER POLICY. SAMPLES WILL NEED RECOLLECTED. EMAILS HAVE BEEN SENT TO LAB STAFF. Performed By: #### L 100.0100, L500.4100, L500.4050 ####[facility] [address] [place], [address] CREAT,SERUM Normal 0.70-1.30 [facility] Comment on above: Order Comment: Order Date: 08/05/24Order Info: [id number] - CMPOrder Info: [id number] - LIPIDOrder Info: [id number] - MGOrder Info: [id number] - TSH Result Comment: TUBE S WERE NOT SPUN DOWN WITHIN TWO HOURS PER POLICY. SAMPLES WILL NEED RECOLLECTED. EMAILS HAVE BEEN SENT TO LAB STAFF. Performed By: #### L 100.0100, L500.4100, L500.4050 ####[facility] [address] [place], [address] EST GFR Normal >60 [facility] Comment on above: Order Comment: Order Date: 08/05/24Order Info: [id number] - CMPOrder Info: [id number] - LIPIDOrder Info: [id number] - MGOrder Info: [id number] - TSH Result Comment: TUBE S WERE NOT SPUN DOWN WITHIN TWO HOURS PER POLICY. SAMPLES WILL NEED RECOLLECTED. EMAILS HAVE BEEN SENT TO LAB STAFF. Performed By: #### L 100.0100, L500.4100, L500.4050 ####[facility] [address] [place], [address] EST GFR - AA Normal >60 [facility] Comment on above: Order Comment: Order Date: 08/05/24Order Info: [id number] - CMPOrder Info: [id number] - LIPIDOrder Info: [id number] - MGOrder Info: [id number] - TSH Result Comment: TUBE S WERE NOT SPUN DOWN WITHIN TWO HOURS PER POLICY. SAMPLES WILL NEED RECOLLECTED. EMAILS HAVE BEEN SENT TO LAB STAFF. Performed By: #### L 100.0100, L500.4100, L500.4050 ####[facility] [address] [place], [address] GAP Normal 5-15 [facility] Comment on above: Order Comment: Order Date: 08/05/24Order Info: [id number] - CMPOrder Info: [id number] - LIPIDOrder Info: [id number] - MGOrder Info: [id number] - TSH Result Comment: TUBE S WERE NOT SPUN DOWN WITHIN TWO HOURS PER POLICY. SAMPLES WILL NEED RECOLLECTED. EMAILS HAVE BEEN SENT TO LAB STAFF. Performed By: #### L 100.0100, L500.4100, L500.4050 ####[facility] [address] [place], [address] GLU Normal 74-106 [facility] Comment on above: Order Comment: Order Date: 08/05/24Order Info: [id number] - CMPOrder Info: [id number] - LIPIDOrder Info: [id number] - MGOrder Info: [id number] - TSH Result Comment: TUBE S WERE NOT SPUN DOWN WITHIN TWO HOURS PER POLICY. SAMPLES WILL NEED RECOLLECTED. EMAILS HAVE BEEN SENT TO LAB STAFF. Performed By: #### L 100.0100, L500.4100, L500.4050 ####[facility] [address] [place], [address] Potassium Normal 3.5-5.1 [facility] Comment on above: Order Comment: Order Date: 08/05/24Order Info: [id number] - CMPOrder Info: [id number] - LIPIDOrder Info: [id number] - MGOrder Info: [id number] - TSH Result Comment: TUBE S WERE NOT SPUN DOWN WITHIN TWO HOURS PER POLICY. SAMPLES WILL NEED RECOLLECTED. EMAILS HAVE BEEN SENT TO LAB STAFF. Performed By: #### L 100.0100, L500.4100, L500.4050 ####[facility] [address] [place], [address] T BILI Normal 0.20-1.00 [facility] Comment on above: Order Comment: Order Date: 08/05/24Order Info: [id number] - CMPOrder Info: [id number] - LIPIDOrder Info: [id number] - MGOrder Info: [id number] - TSH Result Comment: TUBE S WERE NOT SPUN DOWN WITHIN TWO HOURS PER POLICY. SAMPLES WILL NEED RECOLLECTED. EMAILS HAVE BEEN SENT TO LAB STAFF. Performed By: #### L 100.0100, L500.4100, L500.4050 ####[facility] [address] [place], [place], [address] T PROT Normal 6.4-8.2 [facility] Comment on above: Order Comment: Order Date: 08/05/24Order Info: [id number] - CMPOrder Info: [id number] - LIPIDOrder Info: [id number] - MGOrder Info: [id number] - TSH Result Comment: TUBE S WERE NOT SPUN DOWN WITHIN TWO HOURS PER POLICY. SAMPLES WILL NEED RECOLLECTED. EMAILS HAVE BEEN SENT TO LAB STAFF. Performed By: #### L 100.0100, L500.4100, L500.4050 ####[facility] [address] [place], [place], [address] Comprehensive Metabolic Profil Normal 136-145 [facility] Comment on above: Order Comment: Order Date: 08/05/24Order Info: [id number] - CMPOrder Info: [id number] - LIPIDOrder Info: [id number] - MGOrder Info: [id number] - TSH Result Comment: TUBE S WERE NOT SPUN DOWN WITHIN TWO HOURS PER POLICY. SAMPLES WILL NEED RECOLLECTED. EMAILS HAVE BEEN SENT TO LAB STAFF. Performed By: #### L 100.0100, L500.4100, L500.4050 ####[facility] [address] [place], [place], [address] Lipid Profileon 08-05-2024 HDL Normal [facility] Comment on above: Order Comment: Order Date: 08/05/24Order Info: [id number] - CMPOrder Info: [id number] - LIPIDOrder Info: [id number] - MGOrder Info: [id number] - TSH Result Comment: TUBE S WERE NOT SPUN DOWN WITHIN TWO HOURS PER POLICY. SAMPLES WILL NEED RECOLLECTED. EMAILS HAVE BEEN SENT TO LAB STAFF. The drugs N-Acetylcysteine and Metamizole may falsely depress this assay. Performed By: #### L 100.0100, L500.4100, L500.4050 ####[facility] [address] [place], [address] TRIG Normal [facility] Comment on above: Order Comment: Order Date: 08/05/24Order Info: [id number] - CMPOrder Info: [id number] - LIPIDOrder Info: [id number] - MGOrder Info: [id number] - TSH Result Comment: TUBE S WERE NOT SPUN DOWN WITHIN TWO HOURS PER POLICY. SAMPLES WILL NEED RECOLLECTED. EMAILS HAVE BEEN SENT TO LAB STAFF. The drugs N-Acetylcysteine and Metamizole may falsely depress this assay. Performed By: #### L 100.0100, L500.4100, L500.4050 ####[facility] [address] [place], [address] CHOL Normal 200 [facility] Comment on above: Order Comment: Order Date: 08/05/24Order Info: [id number] - CMPOrder Info: [id number] - LIPIDOrder Info: [id number] - MGOrder Info: [id number] - TSH Result Comment: TUBE S WERE NOT SPUN DOWN WITHIN TWO HOURS PER POLICY. SAMPLES WILL NEED RECOLLECTED. EMAILS HAVE BEEN SENT TO LAB STAFF. Performed By: #### L 100.0100, L500.4100, L500.4050 ####[facility] [address] [place], [address] LDL Normal 0-130 [facility] Comment on above: Order Comment: Order Date: 08/05/24Order Info: [id number] - CMPOrder Info: [id number] - LIPIDOrder Info: [id number] - MGOrder Info: [id number] - TSH Result Comment: TUBE S WERE NOT SPUN DOWN WITHIN TWO HOURS PER POLICY. SAMPLES WILL NEED RECOLLECTED. EMAILS HAVE BEEN SENT TO LAB STAFF. Performed By: #### L 100.0100, L500.4100, L500.4050 ####[facility] [address] [place], [address] VLDL Normal 5-40 [facility] Comment on above: Order Comment: Order Date: 08/05/24Order Info: [id number] - CMPOrder Info: [id number] - LIPIDOrder Info: [id number] - MGOrder Info: [id number] - TSH Result Comment: TUBE S WERE NOT SPUN DOWN WITHIN TWO HOURS PER POLICY. SAMPLES WILL NEED RECOLLECTED. EMAILS HAVE BEEN SENT TO LAB STAFF. Performed By: #### L 100.0100, L500.4100, L500.4050 ####[facility] [address] [place], [address] Microalbumin,Random Urineon 08-05-2024 MICROALBUMIN,UR 17.0 mg/L Normal NO RANGE EST. [facility] Comment on above: Performed By: #### L 502.0500 ####[facility] [address] [place], [address] Echo, Limited Studyon 2023 Echo, Limited Study [facility] [address] [place] [address] Echo, Limited Study 06/09/24 0808 MR#: [id number] Acct: [id number] Name: AFSANEH BOWERS Rep #: [id number] : 1960 63 From: Puma Summers MD Attending Dr: Dr. Richard Hogan MD [facility]: Richard Hogan MD Date: 06/09/24 Location: [facility] Sex: M C Admitted: Version 2 Reason For Study: MURMUR Procedure This was a limited 2D transthoracic echocardiogram. Myocardial strain analysis was performed in this exam to aid in the assessment of cardiac function. Exam performed in department. Left Ventricle Normal LV size. Left ventricular systolic function is lower limits of normal. The left ventricular ejection fraction is 50 %. Stage 1 diastolic dysfunction. Post operative septal motion. Right Ventricle Normal RV size. Normal systolic function. Atria The left atrium is mildly enlarged. The right atrium is mildly enlarged. Mitral Valve Normal mitral valve. Mild (1+) eccentric mitral valve insufficiency. Tricuspid Valve Normal tricuspid valve. Mild tricuspid valve insufficiency. Pulmonary artery systolic pressure is 22 mmHg. Aortic Valve Trisinus/trileaflet aortic valve. Mild (1+) aortic valve insufficiency. Pulmonic Valve Normal pulmonic valve. Trivial pulmonic valve insufficiency. Great Vessels Normal aortic root. Aortic root sinus is mildly dilated at 4.0. The pulmonary artery is normal size. Inferior vena cava collapse with respiration. Pericardium/Pleural No pericardial effusion. MMode/2D Measurements Calculations LVIDd: 5.2 cm IVSd: 1.1 cm LVOT diam: 2.3 cm LVIDs: 3.7 cm LVPWd: 1.0 cm LVOT area: 4.1 cm2 RVDd: 4.3 cm FS: 27.7 % asc Aorta Diam: 3.5 cm LAV(MOD-bp): 68.8 ml LVAd ap4: 36.4 cm2 LAV(MOD-bp) Indexed: 31.6 ml/m2 LVLd ap4: 8.3 cm LAV(MOD-sp2): 66.2 ml EDV(MOD-sp4): 133.8 ml LAV(MOD-sp4): 60.4 ml EDV(sp4-el): 135.9 ml LVAs ap4: 24.3 cm2 LVLs ap4: 7.4 cm ESV(MOD-sp4): 66.2 ml ESV(sp4-el): 67.5 ml EF(MOD-sp4): 50.5 % EF(sp4-el): 50.3 % LVAd ap2: 37.3 cm2 SV(MOD-sp4): 67.6 ml SV(MOD-sp2): 65.6 ml LVLd ap2: 9.0 cm EDV(MOD-sp2): 127.4 ml EDV(sp2-el): 131.6 ml LVAs ap2: 23.5 cm2 LVLs ap2: 7.8 cm ESV(MOD-sp2): 61.7 ml ESV(sp2-el): 60.0 ml EF(MOD-sp2): 51.5 % SV(sp4-el): 68.4 ml Ao sinus diam: 4.[address] Junction: 3.3 cm LA dimension(2D): 4.7 cm LA A4 area: 22.2 cm2 RA A4 area: 23.1 cm2 TAPSE: 1.2 cm Time Measurements MV dec time: 0.38 sec Doppler Measurements Calculations MV E max rosy: 51.9 cm/sec Lat Peak E' Rosy: 10.2 cm/sec Med Peak E' Rosy: 5.9 cm/sec MV A max rosy: 52.3 cm/sec E/E' lat: 5.1 E/E' med: 8.9 MV E/A: 0.99 MV dec slope: 138.4 cm/sec2 Ao V2 max: 98.1 cm/sec AI max rosy: 324.9 cm/sec Ao max P.8 mmHg AI max P.2 mmHg Ao V2 mean: 75.3 cm/sec AI dec slope: 174.4 cm/sec2 Ao mean P.5 mmHg AI P1/2t: 545.7 msec Ao V2 VTI: 20.6 cm AV (velocity ratio): 0.88 RIZWANA(I,D): 3.6 cm2 RIZWANA(V,D): 3.3 cm2 LV V1 max: 78.9 cm/sec SV(LVOT): 75.1 ml TR max rosy: 220.7 cm/sec LV V1 max P.5 mmHg TR max P.5 mmHg LV V1 mean P.5 mmHg LV V1 mean: 57.0 cm/sec LV V1 VTI: 18.2 cm ECHO/Echo, Limited Study Interpretation Summary Normal LV size. Left ventricular systolic function is lower limits of normal. The left ventricular ejection fraction is 50 %. Stage 1 diastolic dysfunction. Mild biatrial enlargement. Aortic valve status post repair with trivial to mild regurgitation. The global longitudinal strain is borderline abnormal. The global longitudinal strain = -16.7% (abnormal). Ordering Physician: Richard Hogan Referring Physician: Chilango Welsh Performed By: Maria Eugenia Pollock RDCS 06/09/24 1022 Date Puma Summers MD CC: Dr. Chilango Welsh MD; Dr. Richard Hogan MD Date Dictated: 06/09/2408 Date Transcribed: 06/09/241021 Oliving Machine Operator: Signed Normal [facility] FUNDUS PHOTOGRAPHY-OUon FUNDUS PHOTOGRAPHY-OU Table formatting f rom the original result was not included. Photos OD OS 12/19/2023 Normal disc color, PPA, no disc edema, no CWS, citus inversus? Normal disc color, PPA, citus inversus? 06/06/24 Stable, see above Stable, see above Normal [facility] Table formatting fro m the original result was not included. Photos OD OS 12/19/2023 Normal disc color, PPA, no disc edema, no CWS, citus inversus? Normal disc color, PPA, citus inversus? 06/06/24 Stable, see above Stable, see above RADIOLOGY [facility] Radiology Study observation (narrative) [facility] 24-2 FAST - OUon 024 [facility] 24-2 FAST - OU Table formatting fro m the original result was not included. [facility] OD Reliability Fovea MD Interp 12/19/2023 Excellent 26 dB, decreased -4.20 Moderate central VF depression in pattern deviation, cecocentral? 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 OS Reliability Fovea MD Interp 12/19/2023 Low, high fixation losses 32 dB, mildly decreased -1.99 Mild scattered non-specific threshold loss 03/26/24 Excellent 35 dB, WNL -0.19 Mild scattered non-specific threshold loss, stable 06/06/24 good 32, mildly decreased -1.35 Essentially full VF Normal [facility] OCT OPTIC NERVE OUon 024 OCT OPTIC NERVE OU Table formatting fro m the original result was not included. RNFL OD (SS) OS (SS) Interp 12/19/2023 87 (6/10) 67 (8/10) OD - mild RNFL thickening in temporal quadrant, otherwise WNL OS - RNFL thinning in hour-glass pattern , but segmentation may be not accurate 2/2 myopia 03/26/24 83 (8) 69 (06/12) OD - normal RNFL thickness, overall stable OS - stable RNFL thinning in superior and inferior quadrants 06/05/24 90 68 OD - normal RNFL thickness, borderline thick RNFL in temporal quadrant, overall stable OS - stable RNFL thinning in superior and inferior quadrants GCC OD (SS) OS (SS) Interp 12/19/2023 76 (03/12) 66 (05/13) OD - GCC thinning superiorly OS - diffuse moderate GCC thinning, but segmentation may be not accurate 2/2 myopia 03/26/24 74 (8) 70 (06/12) OD - stable GCC thinning superiorly OS - stable moderate diffuse GCC thinning 06/06/24 73 67 OD - stable GCC thinning superiorly OS - stable moderate GCC thinning OD - retinoschisis nasally to optic disc 2/2 myopia?, does not correlate to VF defect, mild dry outer retinal changes in macula, inner retinal layers thinning superiorly in macula Normal [facility] Ophthalmic OCT panelon 06-06 Table formatting fro m the original result was not included. RNFL OD (SS) OS (SS) Interp 12/19/2023 87 (10) 67 (8) OD - mild RNFL thickening in temporal quadrant, otherwise WNL OS - RNFL thinning in hour-glass pattern , but segmentation may be not accurate 2/2 myopia 03/26/24 83 (810) 69 (06/12) OD - normal RNFL thickness, overall stable OS - stable RNFL thinning in superior and inferior quadrants 06/05/24 90 68 OD - normal RNFL thickness, borderline thick RNFL in temporal quadrant, overall stable OS - stable RNFL thinning in superior and inferior quadrants GCC OD (SS) OS (SS) Interp 12/19/2023 76 (03/12) 66 (05/13) OD - GCC thinning superiorly OS - diffuse moderate GCC thinning, but segmentation may be not accurate 2/2 myopia 03/26/24 74 (8) 70 (06/12) OD - stable GCC thinning superiorly OS - stable moderate diffuse GCC thinning 06/06/24 73 67 OD - stable GCC thinning superiorly OS - stable moderate GCC thinning OD - retinoschisis nasally to optic disc 2/2 myopia?, does not correlate to VF defect, mild dry outer retinal changes in macula, inner retinal layers thinning superiorly in macula RAD[facility]OLOGY [facility]-2024 Table formatting fro m the original result was not included. HVF OD Reliability Fovea MD Interp 12/19/2023 Excellent 26 dB, decreased -4.20 Moderate central VF depression in pattern deviation, cecocentral? 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 [place] [address] OFFICE VISIT Date of Service: 05/15/24 MR#: [id number] Acct: [id number] Name: AFSANEH BOWERS Rep #: [id number] : 1960 Provider: Dr. Richard lopez MD Age/Sex: 63/M Location: [facility] Status: Signed HPI HPI History of Present Illness Details: This is a 63-year-old male presents to the office today for a cardiovascular outpatient follow-up. The patient called in his that he had episode of some visual changes which she had had a visual field cut after his aortic and aortic valve surgery. We placed an event recorder and this captured 1 episode where he felt any seconds worth of sensation described as a minimal dizziness on his back swing when he was playing golf. This happened to correlate with a 14 beat run of VT that was documented on the event recorder. The patient's ejection fraction is known to be in the 45 to 50% range by echo in February 2024 he had mild mitral valve prolapse 1-2+ mitral insufficiency 1+ eccentric aortic valve insufficiency. 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 He is playing golf routinely without any restrictions. He is aerobically active he has not been doing any isometric weightlifting although he is going to be doing some toning with light weights rapid reps. He is also being reevaluated by the neuro-enrichment teacher at [facility] later in June. The patient's past medical history is significant: He has a history of ascending aortic aneurysm repair with valve salvage surgery at [facility] November 13, 2023. He also has a past medical history of non- ST elevated myocardial infarction, nonobstructive coronary disease, hypertension and hyperlipidemia. He had a heart catheterization October 2023 that showed proximal LAD with 70% stenosis, proximal diagonal 1 with 50% stenosis that trifurcates after stenosis and 2-3 of the branches have 80% stenosis in the proximal portion, and 40% proximal LCx stenosis. Echocardiogram prior to ascending aortic aneurysm repair in October 2023 showed ejection unction of 65% and aortic root measuring 5.6 cm. He denies chest, arm, jaw, or neck discomfort. He denies palpitations. He denies bilateral lower extremity edema. He denies claudication. He denies shortness of breath with activity, shortness of breath at rest, orthopnea, or PND. He denies chronic cough. He denies significant, sudden weight gain. He states infrequent lightheadedness. He denies near-syncope, or syncope. He did note the dizziness as outlined above. The patient is tolerating his current medical regiment without incident. Intake Vital Signs 02/19/24 09:06 04/21/24 11:50 05/15/24 09:00 Height 6 ft 6 ft 6 ft Weight: 207 lb BMI 28.0 BP 134/91 H Blood Pressure Location Lt brachial Position Sitting Respiration 16 Pulse 64 Pulse Source Monitor Pulse Oximetry (%) 95 Oxygen Delivery Method room air Intake Visit Reasons: 3 M FU Airplane Cleaner Required: No Accompanied by: Self Is patient in pain?: No Allergies No Known Allergies Allergy (Verified 05/15/24 09:00) Medications ???Medication ???Instructions ???Recorded ???Confirmed ???Type aspirin 81 mg tablet,delayed 81 mg PO DAILY 11/23/23 05/15/24 History release ascorbic acid (vitamin C) 500 mg mg PO DAILY 12/03/23 05/15/24 History capsule cholecalciferol (vitamin D3) 250 250 mcg PO DAILY 12/03/23 05/15/24 History mcg (10,000 unit) capsule multivitamin 1 tab PO DAILY 12/03/23 05/15/24 History rosuvastatin 20 mg tablet 20 mg PO DAILY #90 tabs 01/30/24 05/15/24 Rx vitamin B complex 1 tab PO DAILY 02/19/24 05/15/24 History carvedilol 3.125 mg tablet (Coreg) 3.125 mg PO BID #60 tabs 02/29/24 05/15/24 Rx Ejection fraction %: 50 Have you fallen in the past year?: No PFSH Medical History Moderate to severe aortic insufficiency Ascending aortic aneurysm Eye problem Hyperlipidemia Coronary artery disease Hypertension Aortic root dilatation Aortic valve regurgitation Surgical History 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 Normal [facility] Carotid Duplex Ultrasoundon 05-01-2024 Carotid Duplex Ultrasound [facility] [address] [place] [address] Carotid Duplex Ultrasound 05/01/24 0732 MR#: [id number] Acct: [id number] Name: AFSANEH BOWERS Rep #: [id number] : 1960 63 From: Thomas Knight MD Attending Dr: Chilango Farias, TURNER MACHINE OPERATOR-C Status: REG CLI Ordering Dr: Chilango Welsh MD Date: 05/01/24 Location: [facility] Sex: M C Admitted: Reason For Study: VISUAL DISTURBANCE, CVA/TIA Rt. Velocities/BP Lt. Velocities/BP Prox CCA 86.3/16.3 cm/sec. Prox CCA 125.8/30.9 cm/sec. Mid CCA 74.0/17.3 cm/sec. Mid CCA 93.0/18.2 cm/sec. Dist CCA 84.4/20.1 cm/sec. Dist CCA 68.8/19.3 cm/sec. Prox ICA 92.0/14.6 cm/sec. Prox ICA 67.7/16.0 cm/sec. Mid ICA 53.9/18.3 cm/sec. Mid ICA 83.1/25.9 cm/sec. Dist ICA 50.2/17.1 cm/sec. Dist ICA 87.5/33.6 cm/sec. Rt. ICA/CCA = 92.0/74.0=1.2. Lt. ICA/CCA = 87.5/93.0=0.9. Prox ECA 130.8/15.7 cm/sec. Prox ECA 106.2/17.1 cm/sec. Rt. Vert. 47.1/18.8 cm/sec. Lt. Vert. 43.8/13.9 cm/sec. Right Extracranial There is homogeneous, smooth atherosclerotic plaque noted in the right common carotid artery. There is intimal thickening but no significant atherosclerotic plaque noted in the right internal carotid artery. There is no significant atherosclerotic plaque noted in the right external carotid artery. The right external carotid artery is tortuous. Antegrade flow is noted in the right vertebral artery. Left Extracranial There is homogeneous, smooth atherosclerotic plaque noted in the left common carotid artery. There is intimal thickening but no significant atherosclerotic plaque noted in the left internal carotid artery. The left external carotid artery is not well visualized. The left external carotid artery is tortuous. Antegrade flow is noted in the left vertebral artery. Procedure Carotid Duplex 42899. This is a Carotid Duplex examination using B-mode, color flow and specral Doppler. Exam performed in department. VL/Carotid Duplex Ultrasound Interpretation Summary Normal right extracranial internal carotid. Normal left extracranial internal carotid. Patent and antegrade vertebrals bilaterally. Ordering Physician: Chilango Welsh Referring Physician: Chilango Farias Performed By: Kirsty Hurst, BRIDGER, RVT 05/01/24 1426 Date Thomas Knight MD CC: TURNER MACHINE OPERATOR-C Chilango Farias; Dr. Chilango Welsh MD Date Dictated: 05/01/2432 Date Transcribed: 05/01/24 142 Oliving Machine Operator: Signed Normal [facility] 24-2 FAST - OUon 024 [facility] 24-2 FAST - Table formatting fro m the original result was not included. HVF OD Reliability Fovea MD Interp 12/19/2023 Excellent 26 dB, decreased -4.20 Moderate central VF depression in pattern deviation, cecocentral? 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 RNFL OD (SS) OS (SS) Interp 12/19/2023 87 (6/10) 67 (8/10) OD - mild RNFL thickening in temporal quadrant, otherwise WNL OS - RNFL thinning in hour-glass pattern , but segmentation may be not accurate 2/2 myopia 03/26/24 83 (8/10) 69 (10/10) OD - normal RNFL thickness, overall stable OS - stable RNFL thinning in superior and inferior quadrants GCC OD (SS) OS (SS) Interp 12/19/2023 76 (7/10) 66 (9/10) OD - GCC thinning superiorly OS - diffuse moderate GCC thinning, but segmentation may be not accurate 2/2 myopia 03/26/24 74 (8/10) 70 (10/10) OD - stable GCC thinning superiorly OS - stable moderate diffuse GCC thinning OD - retinoschisis nasally to optic disc 2/2 myopia?, does not correlate to VF defect, mild dry outer retinal changes in macula, inner retinal layers thinning superiorly in macula Normal [facility] Ophthalmic OCT panelon 03-28 Table formatting fro m the original result was not included. RNFL OD (SS) OS (SS) Interp 12/19/2023 87 (6/10) 67 (8/10) OD - mild RNFL thickening in temporal quadrant, otherwise WNL OS - RNFL thinning in hour-glass pattern , but segmentation may be not accurate 2/2 myopia 03/26/24 83 (8/10) 69 (10/10) OD - normal RNFL thickness, overall stable OS - stable RNFL thinning in superior and inferior quadrants GCC OD (SS) OS (SS) Interp 12/19/2023 76 (7/10) 66 (9/10) OD - GCC thinning superiorly OS - diffuse moderate GCC thinning, but segmentation may be not accurate 2/2 myopia 03/26/24 74 (8/10) 70 (10/10) OD - stable GCC thinning superiorly OS - stable moderate diffuse GCC thinning OD - retinoschisis nasally to optic disc 2/2 myopia?, does not correlate to VF defect, mild dry outer retinal changes in macula, inner retinal layers thinning superiorly in macula [facility] Perimetry studyon 03-28-2024 Table formatting fro m the original result was not included. HVF OD Reliability Fovea MD Interp 12/19/2023 Excellent 26 dB, decreased -4.20 Moderate central VF depression in pattern deviation, cecocentral? 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 HVF OS Reliability Fovea MD Interp 12/19/2023 Low, high fixation losses 32 dB, mildly decreased -1.99 Mild scattered non-specific threshold loss 03/26/24 Excellent 35 dB, WNL -0.19 Mild scattered non-specific threshold loss, stable [facility] No Panel Informationon 03-26 [facility]ative[facility] LG Jt Injection/Arthrocentes is: L kneeon 02-21-2024 Asaf Torres MD 02/21/2024 6:54 AM LG Jt Injection/Arthrocentesi s: L knee Performed by: Asaf Torres MD Authorized by: Asaf Torres MD CPT 96671 - Large Joint Arthrocentesis: Consent given by: Patient Supporting Documentation: Indications: Pain Procedure Details: Location: Knee Site: L knee Needle size: 20 G Approach: Lateral Anesthetic used: Lidocaine 1% Anesthetic amount (mL): 1 Patient tolerance: Patient tolerated the procedure well with no immediate complications [facility] FUNDUS PHOTOGRAPHY-OUon 12-02 Table formatting fro m the original result was not included. Photos OD OS 12/19/2023 Normal disc color, PPA, no disc edema, no CWS, citus inversus? Normal disc color, PPA, citus inversus? [facility] Op[facility]mic [facility] 12-19 [facility] Table formatting fro m the original result was not included. RNFL OD (SS) OS (SS) Interp 12/19/2023 87 (6/10) 67 (8/10) OD - mild RNFL thickening in temporal quadrant, otherwise WNL OS - RNFL thinning in hour-glass pattern , but segmentation may be not accurate 2/2 myopia GCC OD (SS) OS (SS) Interp 12/19/2023 76 (7/10) 66 (9/10) OD - GCC thinning superiorly OS - diffuse moderate GCC thinning, but segmentation may be not accurate 2/2 myopia OD - retinoschisis nasally to optic disc 2/2 myopia?, does not correlate to VF defect, mild dry outer retinal changes in macula RADIOLOGY [facility] Perimetry studyon 12-20-2023 Table formatting fro m the original result was not included. HVF OD Reliability Fovea MD Interp 12/19/2023 Excellent 26 dB, decreased -4.20 Moderate central VF depression in pattern deviation, cecocentral? scotoma on pattern deviation HVF OS Reliability Fovea MD Interp 12/19/2023 Low, high fixation losses 32 dB, mildly decreased -1.99 Mild scattered non-specific threshold loss RADIOLOGY [facility] No Panel Informationon 12-18 Radiology Study observation (narrative) [facility] Bacteria Ur Culton Bacteria identified Cx Nom (U) SPECIMEN TYPE NONE Bacteria Ur Cult NO GROWTH OF URINARY TRACT PATHOGENS. PRADEEP INDICATIVE OF VAGINAL/URETHRAL CONTAMINATION PRESENT. PHYSICIANS MAY CONTACT MICROBIOLOGY AT [phone] IF FURTHER INFORMATION IS DESIRED. Normal [employer] Comment on above: Performed By: #### 6 30-4 #### LIDA Elmore ([id number]) [facility] ([id number]) [address] [place] [address] CULTURE, URINEon 11-23-2023 CULTURE, URINE TYPE DESCRIPTION URINE SOURCE DESCRIPTION NONE CULTURE NO GROWTH OF URINARY TRACT PATHOGENS. PRADEEP INDICATIVE OF VAGINAL/URETHRAL CONTAMINATION PRESENT. PHYSICIANS MAY CONTACT MICROBIOLOGY AT [phone] IF FURTHER INFORMATION IS DESIRED. Normal Provider Locations NURSING NOTEon 11-23-2023 Junior Electrical Engineer Authentication Interface Message Text The patient states that he is experiencing urinary frequency at night. He is not having the frequency during the day. He was just released from the hospital this past Sunday after having open heart surgery. Normal Provider Locations POC URINE DIPSTICKon 024 BILIRUBIN, POC URINE DIPSTICK Negative Normal neg Provider Locations BLOOD, POC URINE DIPSTICK Negative Normal neg Provider Locations GLUCOSE, POC URINE DIPSTICK Negative Normal neg Provider Locations KETONE, POC URINE DIPSTICK Negative Normal neg Provider Locations LEUKOCYTES, POC URINE DIPSTICK Negative Normal neg Provider Locations NITRITE, POC URINE DIPSTICK Negative Normal neg Provider Locations PH, POC URINE DIPSTICK 6.0 Normal 5-8 Pr ovider Locations PROTEIN, POC URINE DIPSTICK + Normal neg Provider Locations SPECIFIC GRAVITY, POC URINE DIPSTICK 1.030 Normal 1.005-1.030 Provider Locations UROBILINOGEN, POC URINE DIPSTICK Negative Normal normal Provider Locations PROGRESS NOTESon 11-23-2023 Junior Electrical Engineer Authentication Interface Message Text Assessment/Plan ICD-10-CM ICD-9-CM 1. Urination frequency R35.0 788.41 POC URINE DIPSTICK CULTURE, URINE nitrofurantoin (MACROBID) 100 mg capsule This is urinary frequency, either secondary to UTI or potentially BPH, not rule out intrinsic factors like medication, urinary analysis showed protein, will send off for urine culture, advised patient if the urine culture is negative then to follow-up with primary care physician, if the antibiotic needs to be changed will change antibiotic based off the culture and sensitivity report, low suspicion for nephrolithiasis, low suspicion for glomerulonephritis, no acute distress, follow-up with PCP for further workup Patient is in agreement to seek ER care for life-threatening symptoms and follow-up with PCP as needed. Patient is appropriate for discharge to home as there is no emergent condition nor need for escalation of care at this time. Treatment plan was discussed with the patient in detail and they voiced understanding and agreement with it as stated in the assessment and plan section of this note. Patient discharged from urgent care to home in stable condition without noted toxic or distressed appearance. RTO PRN or next scheduled appt Subjective UTI Nursing Notes: Kristen Renee, RT(R) 11/23/23 1546 Signed The patient states that he is experiencing urinary frequency at night. He is not having the frequency during the day. He was just released from the hospital this past Sunday after having open heart surgery. Patient presents to the urgent care with complaints of frequency of urination, denies any dysuria, denies any hesitancy, denies any constitutional symptoms or flank pain, was discharged from the hospital on Sunday with aorta surgery, here for evaluation Afsaneh Bowers is a 63 year old male who presents today with complaints of UTI Objective Review of Systems Constitutional: Negative. HENT: Negative. Respiratory: Negative. Cardiovascular: Negative. Genitourinary: Positive for frequency and urgency. Negative for decreased urine volume, difficulty urinating, dysuria, flank pain, hematuria, penile pain, penile swelling and scrotal swelling. All other systems reviewed and are negative. Visit Vitals BP 100/66 Pulse 80 Temp 98.1 F (36.7 C) (Oral) Ht 1.829 m (6') Wt 86.2 kg (190 lb) SpO2 93% BMI 25.77 kg/m? BSA 2.09 m? Physical Exam Constitutional: General: He is not in acute distress. Appearance: Normal appearance. He is not ill-appearing, toxic-appearing or diaphoretic. HENT: Head: Normocephalic and atraumatic. Right Ear: External ear normal. Left Ear: External ear normal. Mouth/Throat: Mouth: Mucous membranes are moist. Eyes: General: No scleral icterus. Right eye: No discharge. Left eye: No discharge. Conjunctiva/sclera: Conjunctivae normal. Abdominal: Tenderness: There is no abdominal tenderness. There is no right CVA tenderness or left CVA tenderness. Skin: General: Skin is warm and dry. Coloration: Skin is not jaundiced or pale. Findings: No bruising, erythema or rash. Neurological: General: No focal deficit present. Mental Status: He is alert and oriented to person, place, and time. Psychiatric: Mood and Affect: Mood normal. Behavior: Behavior normal. Nursing notes and vital signs documented and reviewed. Procedures No orders to display Results for orders placed or performed in visit on 11/23/23 POC URINE DIPSTICK Result Value Ref Range PH, POC URINE DIPSTICK 6.0 5 - 8 SPECIFIC GRAVITY, POC URINE DIPSTICK 1.030 1.005 - 1.030 PROTEIN, POC URINE DIPSTICK +- neg GLUCOSE, POC URINE DIPSTICK neg neg KETONE, POC URINE DIPSTICK neg neg BILIRUBIN, POC URINE DIPSTICK neg neg BLOOD, POC URINE DIPSTICK neg neg UROBILINOGEN, POC URINE DIPSTICK neg normal NITRITE, POC URINE DIPSTICK neg neg LEUKOCYTES, POC URINE DIPSTICK neg neg Allergies I am having Afsaneh Bowers start on nitrofurantoin. Normal Provider Locations MRA Head vessels WO contrast on 11-19-2023 RADIOLOGY RADIOLOGY [facility] MRA Head vessels WO contrast Ordered By: Dominga Clifford on 11-19-2023 [facility] Work Phone: MRA Neck vessels WO and W co ntrast Ricky 11-19-2023 [facility] No Panel Informationon 11-18 RADIOLOGY RADIOLOGY [facility] C REACTIVE PROTEINOrdered By : Fracisco Snyder on 11-18-2023 CRP High sensitivity method [Mass/Vol] 233.40 mg/L High NINF - 10.00 mg/L [facility] Interpretation and review of laboratory results Abnormal [facility] CBC,PLATELETSon 11-18-2023 Erythrocyte distribution width (RBC) [Ratio] 12.8 % 10.9 - 14.3 % [facility] Hematocrit (Bld) [Volume fraction] 30.4 % Low 39.6 - 48.8 % [facility] Hemoglobin (Bld) [Mass/Vol] 9.9 g/dL Low 13.4 - 16.8 g/dL [facility] Interpretation and review of laboratory results Abnormal [facility] MCH (RBC) [Entitic mass] 28.4 pg 26.1 - 33.3 pg [facility] MCHC (RBC) [Mass/Vol] 32.6 g/dL 31.9 - 36.5 g/dL [facility] MCV (RBC) [Entitic vol] 87.4 fL 79.0 - 94.5 fL [facility] Platelet mean volume (Bld) [Entitic vol] 9.3 fL 8.7 - 12.3 fL [facility] Platelets (Bld) [#/Vol] 234 10*3/uL 146 - 337 K/uL [facility] RBC (Bld) [#/Vol] 3.48 10*6/uL Low [facility] WBC (Bld) [#/Vol] 18.12 10*3/uL High 3.73 - 10.10 K/[facility]L [facility] CHEM 7 (LYTES,BUN,CREA,GLUC) on 11-18-2023 Anion gap [Moles/Vol] 15 mmol/L 7 - 17 mmol/L [facility] Chloride [Moles/Vol] 101 mmol/L 98 - 10 8 mmol/L [facility] CO2 [Moles/Vol] 25 mmol/L 21 - 31 mmol/L [facility] Creatinine [Mass/Vol] 0.81 mg/dL 0.70 - 1.30 mg/dL [facility] eGFR, CKD-EPI, [facility] Glucose [Mass/Vol] 110 mg/dL High 70 - 99 mg/dL [facility] Interpretation and review of laboratory results Abnormal [facility] Osmolality Calc [Osmolality] 291 [facility] Potassium [Moles/Vol] 4.3 mmol/L 3.5 - 5.0 mmol/L [facility] Sodium [Moles/Vol] 137 mmol/L 135 - 145 mmol/L [facility] Urea nitrogen [Mass/Vol] 21 mg/dL 7 - 25 mg/dL [facility] Urea nitrogen/Creatinine [Mass ratio] 26 mg/mg [facility] MAGNESIUMon 11-18-2023 Interpretation and review of laboratory results Normal [facility] Magnesium [Mass/Vol] 2.1 mg/dL 1.6 - 2 .6 mg/dL [facility] MR Brain WO and W contrast I Von 11-18-2023 Radiology Study observation (narrative) [facility] MR Orbit WO and W contrast I Von 11-18-2023 Radiology Study observation (narrative) [facility] MRA Head vessels WO contrast on 11-18-2023 Radiology Study observation (narrative) [facility] MRA Neck vessels WO and W co ntrast Ricky 11-18-2023 [facility] (narrative[facility] 11-[facility] PT,INR,PTTon 03-17-2024 aPTT Coag (PPP) [Time] 28.9 s OS [facility] INR Coag (Bld) [Relative time] 1.4 {INR} High 0.9 - 1.1 [facility] Interpretation and review of laboratory results Abnormal [facility] PT Coag (PPP) [Time] 16.9 s High [facility] Portable XR Chest Viewson RADIOLOGY RADIOLOGY [facility] Radiology Study observation (narrative) [facility] SEDIMENTATION RATE, AUTOMATE Don 11-18-2023 ESR (Bld) [Velocity] 18 mm/h NINF [facility] Interpretation and review of laboratory results Normal [facility] TYPE AND SCREENon 11-18-2023 ABO/RH(D) TYPE Positive [facility] CBC,PLATELETSon 11-17-2023 Erythrocyte distribution width (RBC) [Ratio] 12.9 % 10.9 - 14.3 % [facility] Hematocrit (Bld) [Volume fraction] 29.2 % Low 39.6 - 48.8 % [facility] Hemoglobin (Bld) [Mass/Vol] 9.7 g/dL Low 13.4 - 16.8 g/dL [facility] Interpretation and review of laboratory results Abnormal [facility] MCH (RBC) [Entitic mass] 29.0 pg 26.1 - 33.3 pg [facility] MCHC (RBC) [Mass/Vol] 33.2 g/dL 31.9 - 36.5 g/dL [facility] MCV (RBC) [Entitic vol] 87.4 fL 79.0 - 94.5 fL [facility] Platelet mean volume (Bld) [Entitic vol] 9.9 fL 8.7 - 12.3 fL [facility] Platelets (Bld) [#/Vol] 148 10*3/uL 146 - 337 K/uL [facility] RBC (Bld) [#/Vol] 3.34 10*6/uL Low [facility] WBC (Bld) [#/Vol] 18.50 10*3/uL High 3.73 - 10.10 K/uL [facility] CHEM 7 (LYTES,BUN,CREA,GLUC) on 11-17-2023 Anion gap [Moles/Vol] 12 mmol/L 7 - 17 mmol/L [facility] Chloride [Moles/Vol] 102 mmol/L 98 - 10 8 mmol/L [facility] CO2 [Moles/Vol] 27 mmol/L 21 - 31 mmol/L [facility] Creatinine [Mass/Vol] 0.75 mg/dL 0.70 - 1.30 mg/dL [facility] eGFR, CKD-EPI, Male - PINF [facility] Glucose [Mass/Vol] 102 mg/dL High 70 - 99 mg/dL [facility] Interpretation and review of laboratory results Abnormal [facility] Osmolality Calc [Osmolality] 292 [facility] Potassium [Moles/Vol] 4.1 mmol/L 3.5 - 5.0 mmol/L [facility] Sodium [Moles/Vol] 137 mmol/L 135 - 145 mmol/L [facility] Urea nitrogen [Mass/Vol] 24 mg/dL 7 - 25 mg/dL [facility] Urea nitrogen/Creatinine [Mass ratio] 32 mg/mg [facility] CONTINUOUS CARDIAC MONITORIN G STRIPon 11-17-2023 [facility] IONIZED CALCIUM, WHOLE BLOOD Ordered By: Yves Turpin on 11-17-2023 Calcium.ionized (Bld) [Moles/Vol] 3.99 mg/dL Low 4.60 - 5.30 mg/dL [facility] Interpretation and review of laboratory results Abnormal [facility] MAGNESIUMon 11-17-2023 Interpretation and review of laboratory results Normal [facility] Magnesium [Mass/Vol] 1.9 mg/dL 1.6 - 2 .6 mg/dL [facility] No Panel Informationon 11-16 [facility] PT,INR,PTTon 11-17-2023 aPTT Coag (PPP) [Time] 25.8 s OS [facility] INR Coag (Bld) [Relative time] 1.5 {INR} High 0.9 - 1.1 [facility] Interpretation and review of laboratory results Abnormal [facility] PT Coag (PPP) [Time] 18.3 s High [facility] Portable XR Chest Viewson RADIOLOGY RADIOLOGY [facility] Radiology Study observation (narrative) [facility] Portable XR Chest ViewsOrder ed By: Daniel Adair on 11-17-2023 [facility] Work Phone: XR Chest PA and Lateralon RADIOLOGY RADIOLOGY [facility] Radiology Study observation (narrative) [facility] CBC,PLATELETSon 11-16-2023 Erythrocyte distribution width (RBC) [Ratio] 13.0 % 10.9 - 14.3 % [facility] Hematocrit (Bld) [Volume fraction] 31.5 % Low 39.6 - 48.8 % [facility] Hemoglobin (Bld) [Mass/Vol] 10.5 g/dL Low 13.4 - 16.8 g/dL [facility] Interpretation and review of laboratory results Abnormal [facility] MCH (RBC) [Entitic mass] 29.1 pg 26.1 - 33.3 pg [facility] MCHC (RBC) [Mass/Vol] 33.3 g/dL 31.9 - 36.5 g/dL [facility] MCV (RBC) [Entitic vol] 87.3 fL 79.0 - 94.5 fL [facility] Platelet mean volume (Bld) [Entitic vol] 9.8 fL 8.7 - 12.3 fL [facility] Platelets (Bld) [#/Vol] 158 10*3/uL 146 - 337 K/uL [facility] RBC (Bld) [#/Vol] 3.61 10*6/uL Low [facility] WBC (Bld) [#/Vol] 22.79 10*3/uL High 3.73 - 10.10 K/uL [facility] CHEM 7 (LYTES,BUN,CREA,GLUC) on 11-16-2023 Anion gap [Moles/Vol] 12 mmol/L 7 - 17 mmol/L [facility] Chloride [Moles/Vol] 102 mmol/L 98 - 10 8 mmol/L [facility] CO2 [Moles/Vol] 27 mmol/L 21 - 31 mmol/L [facility] Creatinine [Mass/Vol] 0.84 mg/dL 0.70 - 1.30 mg/dL [facility] eGFR, CKD-EPI, Male - PINF [facility] Glucose [Mass/Vol] 145 mg/dL High 70 - 99 mg/dL [facility] Interpretation and review of laboratory results Abnormal [facility] Osmolality Calc [Osmolality] 294 [facility] Potassium [Moles/Vol] 4.1 mmol/L 3.5 - 5.0 mmol/L [facility] Sodium [Moles/Vol] 137 mmol/L 135 - 145 mmol/L [facility] Urea nitrogen [Mass/Vol] 23 mg/dL 7 - 25 mg/dL [facility] Urea nitrogen/Creatinine [Mass ratio] 27 mg/mg [facility] Cardiac echo study Procedure on 11-16-2023 3D EF 43 % [facility] Ao ASC index 1.63 cm/m2 [facility] Ao peak rosy 1.02 m/s [facility] Ao SOV index 1.77 cm/m2 [facility] Ao VTI 18.50 cm [facility] Ascending aorta 3.50 cm [facility] AV LVOT peak gradient 2 mmHg [facility] AV mean gradient 3 mmHg [facility] AV peak gradient 4 mmHG [facility] AV valve area 4.15 cm2 [facility] AV Velocity Ratio 0.77 [facility] RIZWANA (continuity Vmax) 3.92 cm2 [facility] RIZWANA (continuity VTI) 4.15 cm2 [facility] RIZWANA index (continuity Vmax) 1.82 m/s [facility] RIZWANA index (continuity VTI) 1.93 cm2/m2 [facility] Avg e' pk rosy 0.07 m/s [facility] Avg E/e' ratio 9.30 [facility] Body surface area Derived from formula 2.15 m2 [facility] BP EF 46 % [facility] DI (Vmax) 0.77 [facility] DI (VTI) 0.82 m/2 [facility] E wave decelartion time 265.87 msec O [facility] e' lateral pk rosy 0.0948 m/s [facility] e' lateral pk rosy 0.09 m/s [facility] e' septal pk rosy 0.0514 m/s [facility] e' septal pk rosy 0.05 m/s [facility] E/A [facility] 1.77 [facility] E/e' lateral ratio 6.54 [facility] E/e' septal ratio 12.06 [facility] EST RAP 15.00 mmHg [facility] EST RVSP 30 mmHg [facility] FS 20 % Abnormal 28 - 44 % [facility] Interpretation and review of laboratory results Abnormal [facility] IVC ostium 2.70 cm [facility] IVS 1.10 cm [facility] LA AREA 2CH 20.48 cm2 [facility] LA area 4CH 21.95 cm2 [facility] LA ESV BP (MOD) 58 mL [facility] LA ESV BP (MOD) index 27 mL/m2 [facility] LA ESV SP 2CH (MOD) 55 mL [facility] LA ESV SP 4CH (MOD) 56 mL [facility] Long Strain -14.2 % [facility] LV EDV 3D 162 mL [facility] LV EDV BP 156 mL [facility] LV ESV 3D 92 mL [facility] LV ESV BP 84 mL [facility] LV mass 213.26 g [facility] LV Mass Index 99.2 g/m2 [facility] LV RWT 0.49 [facility] LV stroke volume BP (ml) 72 mL [facility] LV stroke volume index BP 33.49 mL/m2 [facility] LVIDD 4.90 cm [facility] LVIDS 3.90 cm [facility] LVOT area 5.06 cm2 [facility] LVOT diameter 2.54 cm [facility] LVOT peak rosy 0.79 m/s [facility] LVOT peak VTI 15.17 cm [facility] LVOT stroke volume 77 cm3 [facility] LVOT stroke volume index 35.73 ml/m2 [facility] MPA annulus 3.06 cm [facility] MV pk A rosy 0.35 m/s [facility] MV pk E rosy 0.62 m/s [facility] OSU AV VTI RATIO PRE STRESS 0.82 [facility] OSU ECHO LV BIPLANE SYSTOLIC VOLUME INDEX 39.07 mL/m2 [facility] E[facility] LV BP DIASTOLIC VOLUME INDEX 72.56 mL/m2 [facility]SU ECHO LV EDV 3D INDEX 75.35 mL/m2 [facility] ECHO LV ESV 3D INDEX 42.79 mL/m2 [facility] PV mean gradient 2 mmHg [facility] PV peak gradient 3 mmHg [facility] PV PK ROSY 0.86 m/s [facility] PW 1.20 cm [facility] Qp:Qs ratio 0.68 [facility] RA area 4CH (MOD) 26.68 cm2 [facility] RA vol index 4CH (MOD) 40.00 mL/m2 [facility] Right atrium volume 4 chamber method of disks 86 mL [facility] RV Area diastolic 22.70 cm2 [facility] RV Area systolic 20.40 cm2 [facility] RV basal diam 5.12 cm [facility] RV Fractional area change 10.1 % [facility] RV Free Wall Strain -11.1 % [facility] RV long diam 10.11 cm [facility] RV Long Strain -10.2 % [facility] RV mid diam 2.45 cm [facility] RV S' 7.30 cm/s [facility] RVOT area 6.29 cm2 [facility] RVOT diameter 2.83 cm [facility] RVOT peak gradient 1 mmHg [facility] RVOT peak rosy 0.43 m/s [facility] RVOT peak VTI 8.34 cm [facility] RVOT stroke volume 52 cm3 [facility] Sinus 3.80 cm [facility] Stroke Volume 77 cm/mL [facility] Stroke volume index 36 [facility] TAPSE 0.91 cm [facility] TR pk grad 15 mmHg [facility] TR pk rosy 1.93 m/s [facility] UMOUT [facility] Radiology Study observation (narrative) [facility] EXTRA MICROon 11-16-2023 [facility] GLUCOSE POCon 11-16-2023 Glucose [Mass/Vol] 106 mg/dL High 70 - 99 mg/dL [facility] Interpretation and review of laboratory results Abnormal [facility] POC Sample Type CAPBL [facility] Glucose [Mass/Vol] 92 mg/dL 70 - 99 mg/dL [facility] POC Sample Type CAPBL [facility] Glucose [Mass/Vol] 99 mg/dL 70 - 99 mg/dL [facility] POC Sample Type [facility]BL [facility] Glucose [Mass/Vol] 119 mg/dL High 70 - 99 mg/dL [facility] Interpretation and review of laboratory results Abnormal [facility] POC Sample Type CAPBL [facility] Glucose [Mass/Vol] 118 mg/dL High 70 - 99 mg/dL [facility] Interpretation and review of laboratory results Abnormal [facility] POC Sample Type CAPBL [facility] Glucose [Mass/Vol] 135 mg/dL High 70 - 99 mg/dL [facility] Interpretation and review of laboratory results Abnormal [facility] POC Sample Type [facility] MAGNESIUMon 11-16-2023 Interpretation and review of laboratory results Normal [facility] Magnesium [Mass/Vol] 1.9 mg/dL 1.6 - 2 .6 mg/dL [facility] No Panel Informationon 11-15 [facility] PT,INR,PTTon 11-16-2023 aPTT Coag (PPP) [Time] 33.5 s OS [facility] INR Coag (Bld) [Relative time] 1.7 {INR} High 0.9 - 1.1 [facility] Interpretation and review of laboratory results Abnormal [facility] PT Coag (PPP) [Time] 19.5 s High [facility] Portable XR Chest Viewson [facility]OLOGY [facility] Rad[facility] (narrative) [facility] CBC,PLATELETSon 11-15-2023 Erythrocyte distribution width (RBC) [Ratio] 13.1 % 10.9 - 14.3 % [facility] Hematocrit (Bld) [Volume fraction] 33.2 % Low 39.6 - 48.8 % [facility] Hemoglobin (Bld) [Mass/Vol] 10.9 g/dL Low 13.4 - 16.8 g/dL [facility] Interpretation and review of laboratory results Abnormal [facility] MCH (RBC) [Entitic mass] 29.2 pg 26.1 - 33.3 pg [facility] MCHC (RBC) [Mass/Vol] 32.8 g/dL 31.9 - 36.5 g/dL [facility] MCV (RBC) [Entitic vol] 89.0 fL 79.0 - 94.5 fL [facility] Platelet mean volume (Bld) [Entitic vol] 9.7 fL 8.7 - 12.3 fL [facility] Platelets (Bld) [#/Vol] 142 10*3/uL Low 146 - 337 K/uL [facility] RBC (Bld) [#/Vol] 3.73 10*6/uL Low [facility] WBC (Bld) [#/Vol] 22.93 10*3/uL High 3.73 - 10.10 K/uL [facility] CHEM 7 (LYTES,BUN,CREA,GLUC) Ordered By: Dimitri Worthington on 11-15-2023 Anion gap [Moles/Vol] 10 mmol/L 7 - 17 mmol/L [facility] Chloride [Moles/Vol] 101 mmol/L 98 - 10 8 mmol/L [facility] CO2 [Moles/Vol] 31 mmol/L 21 - 31 mmol/L [facility] Creatinine [Mass/Vol] 0.83 mg/dL 0.70 - 1.30 mg/dL [facility] eGFR, CKD-EPI, Male - PINF [facility] Glucose [Mass/Vol] 147 mg/dL High 70 - 99 mg/dL [facility] Interpretation and review of laboratory results Abnormal [facility] Osmolality Calc [Osmolality] 295 [facility] Potassium [Moles/Vol] 4.1 mmol/L 3.5 - 5.0 mmol/L [facility] Sodium [Moles/Vol] 138 mmol/L 135 - 145 mmol/L [facility] Urea nitrogen [Mass/Vol] 21 mg/dL 7 - 25 mg/dL [facility] Urea nitrogen/Creatinine [Mass ratio] 25 mg[facility] CONTINUOUS CARDIAC MONITORIN G STRIPon 11-15-2023 [facility] GLUCOSE POCon 11-15-2023 Glucose [Mass/Vol] 112 mg/dL High 70 - 99 mg/dL [facility] Interpretation and review of laboratory results Abnormal [facility] POC Sample Type [facility] Glucose [Mass/Vol] 145 mg/dL High 70 - 99 mg/dL [facility] Interpretation and review of laboratory results Abnormal [facility] POC Sample Type [facility] Glucose [Mass/Vol] 161 mg/dL High 70 - 99 mg/dL [facility] Interpretation and review of laboratory results Abnormal [facility] POC Sample Type [facility] HEPATIC FUNCTION PANELon Albumin [Mass/Vol] 3.2 g/dL Low 3.5 - 5.0 g/dL [facility] ALP [Catalytic activity/Vol] 32 U/L 32 - 126 U/L [facility] ALT [Catalytic activity/Vol] 29 U/L 10 - 52 U/L [facility] AST [Catalytic activity/Vol] 93 U/L High 10 - 39 U/L [facility] Bilirubin [Mass/Vol] 0.8 mg/dL NINF - 1.5 mg/dL [facility] Bilirubin.direct [Mass/Vol] 0.2 mg/dL NINF - 0.3 mg/dL [facility] Interpretation and review of laboratory results Abnormal [facility] Protein [Mass/Vol] 5.2 g/dL Low 6.4 - 8.3 g/dL [facility] IONIZED CALCIUM, WHOLE BLOOD Ordered By: Jaylene Nye on 11-15-2023 Calcium.ionized (Bld) [Moles/Vol] 4.58 mg/dL Low 4.60 - 5.30 mg/dL [facility] Interpretation and review of laboratory results Abnormal [facility] MAGNESIUMon 11-15-2023 Interpretation and review of laboratory results Normal [facility] [facility] Magnesium [Mass/Vol] 2.0 mg/dL 1.6 - 2 .6 mg/dL [facility] No Panel Informationon 11-14 [facility] PT,INR,PTTon 11-15-2023 aPTT Coag (PPP) [Time] 30.1 s OS [facility] INR Coag (Bld) [Relative time] 1.7 {INR} High 0.9 - 1.1 [facility] Interpretation and review of laboratory results Abnormal [facility] PT Coag (PPP) [Time] 19.7 s High [facility] Portable XR Chest Viewson RADIOLOGY RADIOLOGY [facility] Radiology Study observation (narrative) [facility] TYPE AND SCREENon 11-15-2023 ABO/RH(D) TYPE Positive [facility] URINALYSIS REFLEX TO CULTURE PERFORMABLEon 11-15-2023 Appearance (U) Clear Clear [facility] Bacteria LM Ql (Urine sed) ABSENT ABSENT [facility] Color (U) Yellow Yellow [facility] Epithelial cells.squamous LM Ql (Urine sed) 0-2/hpf 0-2/hpf, 3-5/hpf = 1+ [facility] Glucose Test strip (U) [Mass/Vol] Negative Negative [facility] Interpretation and review of laboratory results Abnormal [facility] Ketones (U) [Mass/Vol] Negative Negative [facility] Leukocyte esterase Test strip Ql (U) Negative Negative [facility] Nitrite Ql (U) Negative Negative [facility] pH (U) 5.5 [pH] 5.0 - 7.0 [facility] Protein (U) [Mass/Vol] 30 mg/dL Abnormal Negative [facility] RBC (U) [#/Vol] Small Abnormal Negative [facility] RBC LM.HPF (Urine sed) [#/Area] /[HPF] Abnormal [facility] Specific gravity (U) [Rel density] 1.037 High 1.001 - 1.035 [facility] Urobilinogen (U) [Mass/Vol] 1.0 E.U./dL 0.2 E.U/dL, 1.0 E.U/dL [facility] WBC LM.HPF (Urine sed) [#/Area] 0 - 5 [facility] MIN AURIS SCREEN BY PCRO rdered By: Marta Montes on 11-14-2023 Min auris Screen by PCR Not detected Not Detected [facility] Interpretation and review of laboratory results Normal [facility] CBC,PLATELETSon 11-14-2023 Erythrocyte distribution width (RBC) [Ratio] 13.1 % 10.9 - 14.3 % [facility] Hematocrit (Bld) [Volume fraction] 34.0 % Low 39.6 - 48.8 % [facility] Hemoglobin (Bld) [Mass/Vol] 11.2 g/dL Low 13.4 - 16.8 g/dL [facility] Interpretation and review of laboratory results Abnormal [facility] MCH (RBC) [Entitic mass] 28.9 pg 26.1 - 33.3 pg [facility] MCHC (RBC) [Mass/Vol] 32.9 g/dL 31.9 - 36.5 g/dL [facility] MCV (RBC) [Entitic vol] 87.9 fL 79.0 - 94.5 fL [facility] Platelet mean volume (Bld) [Entitic vol] 9.8 fL 8.7 - 12.3 fL [facility] Platelets (Bld) [#/Vol] 158 10*3/uL 146 - 337 K/uL [facility] RBC (Bld) [#/Vol] 3.87 10*6/uL Low [facility] WBC (Bld) [#/Vol] 18.30 10*3/uL High 3.73 - 10.10 K/uL [facility] CHEM 7 (LYTES,BUN,CREA,GLUC) on 11-14-2023 Anion gap [Moles/Vol] 14 mmol/L 7 - 17 mmol/L [facility] Chloride [Moles/Vol] 107 mmol/L 98 - 10 8 mmol/L [facility] CO2 [Moles/Vol] 26 mmol/L 21 - 31 mmol/L [facility] Creatinine [Mass/Vol] 0.95 mg/dL 0.70 - 1.30 mg/dL [facility] eGFR, CKD-EPI, Male 89 - PINF [facility] Glucose [Mass/Vol] 163 mg/dL High 70 - 99 mg/dL [facility] Interpretation and review of laboratory results Abnormal [facility] Osmolality Calc [Osmolality] 304 [facility] Potassium [Moles/Vol] 4.5 mmol/L 3.5 - 5.0 mmol/L [facility] Sodium [Moles/Vol] 142 mmol/L 135 - 145 mmol/L [facility] Urea nitrogen [Mass/Vol] 19 mg/dL 7 - 25 mg/dL [facility] Urea nitrogen/Creatinine [Mass ratio] 20 mg/mg [facility] CONTINUOUS CARDIAC MONITORIN G STRIPOrdered By: Unassigned Pacs on 11-14-2023 [facility] Work Phone: FIBRINOGEN, CLOTTABLEon 11-01 Fibrinogen Coag (PPP) [Mass/Vol] 288 mg/dL 220 - 410 mg/dL [facility] Interpretation and review of laboratory results [facility] GLUCOSE POCon 11-14-2023 Glucose [Mass/Vol] 146 mg/dL High 70 - 99 mg/dL [facility] Interpretation and review of laboratory results [facility]normal [facility] POC Sample Type CAPBL [facility] Glucose [Mass/Vol] 152 mg/dL High 70 - 99 mg/dL [facility] Interpretation and review of laboratory results Abnormal [facility] POC Sample [facility] Glucose [Mass/Vol] 158 mg/dL High 70 - 99 mg/dL [facility] Interpretation and review of laboratory results Abnormal [facility] POC Sample Type [facility] Glucose [Mass/Vol] 149 mg/dL High 70 - 99 mg/dL [facility] Interpretation and review of laboratory results Abnormal [facility] POC Sample Type [facility] Gl[facility] [Mass/Vol] 139 mg/dL High 70 - 99 mg/dL [facility] Interpretation and review of laboratory results Abnormal [facility] POC Sample Type [facility] Glucose [Mass/Vol] 135 mg/dL High 70 - 99 mg/dL [facility] Interpretation and review of laboratory results Abnormal [facility] POC Sample Type ARTER [facility] Glucose [Mass/Vol] 136 mg/dL High 70 - 99 mg/dL [facility] Interpretation and review of laboratory results Abnormal [facility] POC Sample Type ARTER [facility] IONIZED CALCIUM, WHOLE BLOOD Ordered By: Virginia London on 11-14-2023 Calcium.ionized (Bld) [Moles/Vol] 4.43 mg/dL Low 4.60 - 5.30 mg/dL [facility] Interpretation and review of laboratory results Abnormal [facility] IONIZED CALCIUM, WHOLE BLOOD Ordered By: Carroll Rider on 11-14-2023 Calcium.ionized (Bld) [Moles/Vol] 4.25 mg/dL Low 4.60 - 5.30 mg/dL [facility] Interpretation and review of laboratory results Abnormal [facility] MAGNESIUMon 11-14-2023 Interpretation and review of laboratory results Abnormal [facility] Magnesium [Mass/Vol] 3.0 mg/dL High 1.6 - 2 .6 mg/dL [facility] Interpretation and review of laboratory results Normal [facility] Magnesium [Mass/Vol] 2.3 mg/dL 1.6 - 2 .6 mg/dL [facility] No Panel Informationon 11-13 [facility] ABO/RH(D) TYPE Positive [facility] BLOOD COMPONENT TYPE Red Cells, Leukoreduced [facility] EXPIRATION DATE [facility] Product ABO/RH(D) Positive [facility] Product ABO/RH(D) NUMBER [id number] [facility] PRODUCT CODE [id number] [facility] UNIT STATUS released [facility] POTASSIUMon 11-14-2023 Interpretation and review of laboratory results Normal [facility] Potassium [Moles/Vol] 4.5 mmol/L 3.5 - 5.0 mmol/L [facility] PREPARE TO TRANSFUSE OR RED BLOOD CELLSon 11-14-2023 EXPIRATION DATE [facility] PRODUCT CODE [id number] [facility] UNIT NUMBER [id number] [facility] UNIT NUMBER [id number] [facility] UNIT NUMBER [id number] [facility] UNIT NUMBER [id number] [facility] PT,INR,PTTon 11-14-2023 aPTT Coag (PPP) [Time] 26.6 s OS [facility] INR Coag (Bld) [Relative time] 1.2 {INR} High 0.9 - 1.1 [facility] Interpretation and review of laboratory results Abnormal [facility] PT Coag (PPP) [Time] 15.3 s High [facility] Portable XR Chest Viewson RADIOLOGY RADIOLOGY [facility] Radiology Study observation (narrative) [facility] Portable XR Chest ViewsOrder ed By: Martín Ding on 11-14-2023 [facility] Work Phone: THERESE SIGMAon 11-14-2023 Extem S A10 43 mm Low 45 - 62 mm [facility] Extem S A20 48 mm Low 54 - 69 mm [facility] Extem S A5 34 mm 33 - 52 mm [facility] Extem S CT 53 [facility] Extem S LI60 93 % Low 94 - 100 % [facility] Extem S MCF 50 mm Low 57 - 72 mm [facility] Extem S ML 17 % High 0 - 6 % [facility] Fibtem S A10 8 mm 6 - 17 mm [facility] Fibtem S A20 9 mm 6 - 18 mm [facility] Fibtem S A5 8 mm 5 - 16 mm [facility] Fibtem S MCF 9 mm 6 - 19 mm [facility] Heptem S A10 43 mm Low 44 - 61 mm [facility] Heptem S A20 48 mm Low 52 - 67 mm [facility] Heptem S A5 35 mm 33 - 51 mm [facility] Heptem S CT 190 [facility] Heptem S MCF 49 mm Low 54 - 69 mm [facility] Intem S A10 41 mm Low 46 - 63 mm [facility] Intem S A20 46 mm Low 53 - 68 mm [facility] Intem S A5 32 mm Low 36 - 54 mm [facility] Intem S CT 196 [facility] Intem S LI60 94 % 93 - 100 % [facility] Intem S MCF 46 mm Low 55 - 70 mm [facility] Intem S ML 13 % High 0 - 7 % [facility] Interpretation and review of laboratory results Abnormal [facility] ABORH TYPE RECONFIRMATIONon 11-13-2023 [facility] ACTIVATED CLOTTING TIME,POCo n 11-13-2023 aPTT Coag (Bld) [Time] 109.0 s OS [facility] Interpretation and review of laboratory results Normal [facility] aPTT Coag (Bld) [Time] 547.0 s High [facility] Interpretation and review of laboratory results Abnormal [facility] aPTT Coag (Bld) [Time] 413.0 s High [facility] Interpretation and review of laboratory results Abnormal [facility] aPTT Coag (Bld) [Time] 487.0 s High [facility] Interpretation and review of laboratory results Abnormal [facility] aPTT Coag (Bld) [Time] [facility] aPTT Coag (Bld) [Time] 551.0 s High [facility] Interpretation and review of laboratory results Abnormal [facility] aPTT Coag (Bld) [Time] 549.0 s High [facility] Interpretation and review of laboratory results Abnormal [facility] aPTT Coag (Bld) [Time] 109.0 s OS [facility] aPTT Coag (Bld) [Time] 536.0 s High [facility] Interpretation and review of laboratory results Normal [facility] Interpretation and review of laboratory results Abnormal [facility] ARTERIAL BLOOD GAS PLUS LACT ATEon 11-13-2023 Base excess Calc (Bld) [Moles/Vol] 2.0 mmol/L -3.0 - 3.0 mmol/L [facility] CO2 (Bld) [Partial pressure] 50 mm[Hg] High [facility] HCO3 (Bld) [Moles/Vol] 28 mmol/L 22 - 28 mmol/L [facility] Interpretation and review of laboratory results Abnormal [facility] Lactate [Moles/Vol] 1.4 mmol/L 0.5 - 1. 6 mmol/L [facility] Oxygen (Bld) [Partial pressure] 90 mm[Hg] [facility] Oxygen saturation in Blood 98 % 94 - 98 % [facility] pH (Bld) 7.35 [pH] 7.35 - 7.45 [facility] Specimen source Nom (Unsp spec) Arterial [facility] Base excess Calc (Bld) [Moles/Vol] 0.5 mmol/L -3.0 - 3.0 mmol/L [facility] CO2 (Bld) [Partial pressure] 50 mm[Hg] High [facility] HCO3 (Bld) [Moles/Vol] 26 mmol/L 22 - 28 mmol/L [facility] Interpretation and review of laboratory results Abnormal [facility] Lactate [Moles/Vol] 1.8 mmol/L High 0.5 - 1. 6 mmol/L [facility] Oxygen (Bld) [Partial pressure] 97 mm[Hg] [facility] Oxygen saturation in Blood 99 % High 94 - 98 % [facility] pH (Bld) 7.33 [pH] Low 7.35 - 7.45 [facility] Specimen source Nom (Unsp spec) [facility] Calc (Bld) [Moles/Vol] 0.1 mmol/L -3.0 - 3.0 mmol/L [facility] CO2 (Bld) [Partial pressure] 39 mm[Hg] [facility] HCO3 (Bld) [Moles/Vol] 25 mmol/L 22 - 28 mmol/L [facility] Interpretation and review of laboratory results Abnormal [facility] Lactate [Moles/Vol] 1.5 mmol/L 0.5 - 1. 6 mmol/L [facility] Oxygen (Bld) [Partial pressure] 104 mm[Hg] [facility] Oxygen saturation in Blood 99 % High 94 - 98 % [facility] pH (Bld) 7.41 [pH] 7.35 - 7.45 [facility] Specimen source Nom (Unsp spec) Arterial [facility] Base excess Calc (Bld) [Moles/Vol] 1.4 mmol/L -3.0 - 3.0 mmol/L [facility] CO2 (Bld) [Partial pressure] 41 mm[Hg] [facility] HCO3 (Bld) [Moles/Vol] 26 mmol/L 22 - 28 mmol/L [facility] Interpretation and review of laboratory results Abnormal [facility] Lactate [Moles/Vol] 1.3 mmol/L 0.5 - 1. 6 mmol/L [facility] Oxygen (Bld) [Partial pressure] 311 mm[Hg] High [facility] Oxygen saturation in Blood 100 % High 94 - 98 % [facility] pH (Bld) 7.41 [pH] 7.35 - 7.45 [facility] Specimen source Nom (Unsp spec) [facility] CBC,PLATELETSon 11-13-2023 Erythrocyte distribution width (RBC) [Ratio] 12.9 % 10.9 - 14.3 % [facility] Hematocrit (Bld) [Volume fraction] 33.9 % Low 39.6 - 48.8 % [facility] Hemoglobin (Bld) [Mass/Vol] 11.2 g/dL Low 13.4 - 16.8 g/dL [facility] Interpretation and review of laboratory results Abnormal [facility] MCH (RBC) [Entitic mass] 28.6 pg 26.1 - 33.3 pg [facility] MCHC (RBC) [Mass/Vol] 33.0 g/dL 31.9 - 36.5 g/dL [facility] MCV (RBC) [Entitic vol] 86.7 fL 79.0 - 94.5 fL [facility] Platelet mean volume (Bld) [Entitic vol] 9.4 fL 8.7 - 12.3 fL [facility] Platelets (Bld) [#/Vol] 143 10*3/uL Low 146 - 337 K/uL [facility] RBC (Bld) [#/Vol] 3.91 10*6/uL Low [facility] WBC (Bld) [#/Vol] 15.90 10*3/uL High 3.73 - 10.10 K/uL [facility] Erythrocyte distribution width (RBC) [Ratio] 13.0 % 10.9 - 14.3 % [facility] Hematocrit (Bld) [Volume fraction] 33.1 % Low 39.6 - 48.8 % [facility] Hemoglobin (Bld) [Mass/Vol] 11.3 g/dL Low 13.4 - 16.8 g/dL [facility] Interpretation and review of laboratory results Abnormal [facility] MCH (RBC) [Entitic mass] 29.7 pg 26.1 - 33.3 pg [facility] MCHC (RBC) [Mass/Vol] 34.1 g/dL 31.9 - 36.5 g/dL [facility] MCV (RBC) [Entitic vol] 86.9 fL 79.0 - 94.5 fL [facility] Platelet mean volume (Bld) [Entitic vol] 9.4 fL 8.7 - 12.3 fL [facility] Platelets (Bld) [#/Vol] 133 10*3/uL Low 146 - 337 K/uL [facility] RBC (d) [#/Vol] 3.81 10*6/uL Low [facility] WBC (Bld) [#/Vol] 20.73 10*3/uL High 3.73 - 10.10 [facility] CHEM 7 (LYTES,BUN,CREA,GLUC) on 11-13-2023 Anion gap [Moles/Vol] 13 mmol/L 7 - 17 mmol/L [facility] Chloride [Moles/Vol] 109 mmol/L High 98 - 10 8 mmol/L [facility] CO2 [Moles/Vol] 25 mmol/L 21 - 31 mmol/L [facility] Creatinine [Mass/Vol] 0.94 mg/dL 0.70 - 1.30 mg/dL [facility] eGFR, CKD-EPI, Male - PINF [facility] Glucose [Mass/Vol] 127 mg/dL High 70 - 99 mg/dL [facility] Interpretation and review of laboratory results Abnormal [facility] Osmolality Calc [Osmolality] 302 [facility] Potassium [Moles/Vol] 4.5 mmol/L 3.5 - 5.0 mmol/L [facility] Sodium [Moles/Vol] 142 mmol/L 135 - 145 mmol/L [facility] Urea nitrogen [Mass/Vol] 22 mg/dL 7 - 25 mg/dL [facility] Urea nitrogen/Creatinine [Mass ratio] 23 mg/mg [facility] Anion gap [Moles/Vol] 13 mmol/L 7 - 17 mmol/L [facility] Chloride [Moles/Vol] 109 mmol/L High 98 - 10 8 mmol/L [facility] CO2 [Moles/Vol] 25 mmol/L 21 - 31 mmol/L [facility] Creatinine [Mass/Vol] 0.89 mg/dL 0.70 - 1.30 mg/dL [facility] eGFR, CKD-EPI, Male - PINF [facility] Glucose [Mass/Vol] 151 mg/dL High 70 - 99 mg/dL [facility] Interpretation and review of laboratory results Abnormal [facility] Osmolality Calc [Osmolality] 303 [facility] Potassium [Moles/Vol] 4.6 mmol/L 3.5 - 5.0 mmol/L [facility] Sodium [Moles/Vol] 142 mmol/L 135 - 145 mmol/L [facility] Urea nitrogen [Mass/Vol] 20 mg/dL 7 - 25 mg/dL [facility] Urea nitrogen/Creatinine [Mass ratio] 22 mg/mg [facility] ECHOCARDIOGRAM TRANSESOPHAGE AL (AARON) IN OR - IMAGESon 11-13-2023 [facility] Radiology Study observation (narrative) [facility] FIBRINOGEN, CLOTTABLEon 11-01 Fibrinogen Coag (PPP) [Mass/Vol] 218 mg/dL Low 220 - 410 mg/dL [facility] Fibrinogen Coag (PPP) [Mass/Vol] 195 mg/dL Low 220 - 410 mg/dL [facility] GLUCOSE POCon 11-13-2023 Glucose [Mass/Vol] 128 mg/dL High 70 - 99 mg/dL [facility] Interpretation and review of laboratory results Abnormal [facility] POC Sample Type ARTER [facility] Glucose [Mass/Vol] 125 mg/dL High 70 - 99 mg/dL [facility] Interpretation and review of laboratory results Abnormal [facility] POC Sample Type ARTER [facility] Glucose [Mass/Vol] 114 mg/dL High 70 - 99 mg/dL [facility] Interpretation and review of laboratory results Abnormal [facility] POC Sample Type ARTER [facility] Glucose [Mass/Vol] 150 mg/dL High 70 - 99 mg/dL [facility] Interpretation and review of laboratory results Abnormal [facility] POC Sample Type ARTER [facility] Glucose [Mass/Vol] 168 mg/dL High 70 - 99 mg/dL [facility] Interpretation and review of laboratory results Abnormal [facility] POC Sample Type ARTER [facility] Glucose [Mass/Vol] 183 mg/dL High 70 - 99 mg/dL [facility] Interpretation and review of laboratory results Abnormal [facility] POC Sample Type ARTER [facility] Glucose [Mass/Vol] 147 mg/dL High 70 - 99 mg/dL [facility] Interpretation and review of laboratory results Abnormal [facility] POC Sample Type ARTER [facility] Glucose [Mass/Vol] 100 mg/dL High 70 - 99 mg/dL [facility] Interpretation and review of laboratory results Abnormal [facility] POC Sample Type VENO [facility] HEMO[facility]IN & HEMATOCRITon Hematocrit (Bld) [Volume fraction] 33.4 % Low 39.6 - 48.8 % [facility] [facility] Hemoglobin (Bld) [Mass/Vol] 11.3 g/dL Low 13.4 - 16.8 g/dL [facility] IONIZED CALCIUM, WHOLE BLOOD Ordered By: Daniel Negron on 11-13-2023 Calcium.ionized (Bld) [Moles/Vol] 4.35 mg/dL Low 4.60 - 5.30 mg/dL [facility] Interpretation and review of laboratory results Abnormal [facility] IONIZED CALCIUM, WHOLE BLOOD Ordered By: Oleg Dior on 11-13-2023 Calcium.ionized (Bld) [Moles/Vol] 4.98 mg/dL 4.60 - 5.30 mg/dL [facility] Interpretation and review of laboratory results Normal [facility] MAGNESIUMon 11-13-2023 Interpretation and review of laboratory results Normal [facility] Magnesium [Mass/Vol] 2.0 mg/dL 1.6 - 2 .6 mg/dL [facility] Magnesium [Mass/Vol] 2.6 mg/dL 1.6 - 2 .6 mg/dL [facility] No Panel Informationon 11-12 [facility] Interpretation and review of laboratory results Abnormal [facility] Interpretation and review of laboratory results Abnormal [facility] Interpretation and review of laboratory results Normal [facility] Interpretation and review of laboratory results Abnormal [facility] ABO/RH(D) TYPE Positive [facility] BLOOD COMPONENT TYPE Cryo 5 Day [facility] Product ABO/RH(D) Positive [facility] PRODUCT CODE [id number] [facility] UNIT STATUS transfused [facility] PHOSPHATE, INORGANICon 11-12 Phosphate [Mass/Vol] 2.8 mg/dL 2.2 - 4 .6 mg/dL [facility] PLATELET COUNTon 11-13-2023 Platelet mean volume (Bld) [Entitic vol] 9.3 fL 8.7 - 12.3 fL [facility] Platelets (Bld) [#/Vol] 139 10*3/uL Low 146 - 337 K/uL [facility] POC ARTERIAL BLOOD GASon Base excess Calc (Bld) [Moles/Vol] 2.0 mmol/L -3.0 - 3.0 mmol/L [facility] Calcium.ionized (Bld) [Mass/Vol] 4.52 mg/dL Low 4.60 - 5.30 mg/dL [facility] CO2 (Bld) [Partial pressure] 42 mm[Hg] [facility] Glucose [Mass/Vol] 113 mg/dL High 70 - 99 mg/dL [facility] HCO3 (Bld) [Moles/Vol] 27 mmol/L 22 - 28 mmol/L [facility] Hematocrit (Bld) [Volume fraction] 32.0 % Low 40.2 - 50.4 % [facility] Hemoglobin (Bld) [Mass/Vol] 10.5 g/dL Low 13.4 - 16.8 g/dL [facility] Interpretation and review of laboratory results Abnormal [facility] Lactate [Moles/Vol] 1.8 mmol/L High 0.5 - 1. 6 mmol/L [facility] Oxygen (Bld) [Partial pressure] 214 mm[Hg] High [facility] Oxygen saturation in Blood 100 % High 94 - 98 % [facility] pH (Bld) 7.41 [pH] 7.35 - 7.45 [facility] Potassium [Moles/Vol] 4.1 mmol/L 3.5 - 5.0 mmol/L [facility] Sodium [Moles/Vol] 138 mmol/L 135 - 145 mmol/L [facility] Specimen source Nom (Unsp spec) Arterial [facility] Base excess Calc (Bld) [Moles/Vol] -0.2000 mmol/L -3.0 - 3.0 mmol/L [facility] Calcium.ionized (Bld) [Mass/Vol] 3.11 mg/dL Critically low 4.60 - 5.30 mg/dL [facility] CO2 (Bld) [Partial pressure] 41 mm[Hg] [facility] Glucose [Mass/Vol] 177 mg/dL High 70 - 99 mg/dL [facility] HCO3 (Bld) [Moles/Vol] 25 mmol/L 22 - 28 mmol/L [facility] Hematocrit (Bld) [Volume fraction] 29.0 % Low 40.2 - 50.4 % [facility] Hemoglobin (Bld) [Mass/Vol] 9.7 g/dL Low 13.4 - 16.8 g/dL [facility] Interpretation and review of laboratory results Abnormal [facility] Lactate [Moles/Vol] 3.2 mmol/L High 0.5 - 1. 6 mmol/L [facility] Oxygen (Bld) [Partial pressure] 287 mm[Hg] High [facility] Oxygen saturation in Blood 100 % High 94 - 98 % [facility] pH (Bld) 7.39 [pH] 7.35 - 7.45 [facility] Potassium [Moles/Vol] 3.8 mmol/L 3.5 - 5.0 mmol/L [facility] Sodium [Moles/Vol] 136 mmol/L 135 - 145 mmol/L [facility] Specimen source Nom (Unsp spec) Arterial [facility] Base excess Calc (Bld) [Moles/Vol] 1.2 mmol/L -3.0 - 3.0 mmol/L [facility] Calcium.ionized (Bld) [Mass/Vol] 3.92 mg/dL Low 4.60 - 5.30 mg/dL [facility] CO2 (Bld) [Partial pressure] 47 mm[Hg] [facility] Glucose [Mass/Vol] 181 mg/dL High 70 - 99 mg/dL [facility] HCO3 (Bld) [Moles/Vol] 27 mmol/L 22 - 28 mmol/L [facility] Hematocrit (Bld) [Volume fraction] 27.0 % Low 40.2 - 50.4 % [facility] Hemoglobin (Bld) [Mass/Vol] 9.1 g/dL Low 13.4 - 16.8 g/dL [facility] Interpretation and review of laboratory results Abnormal [facility] Lactate [Moles/Vol] 3.1 mmol/L High 0.5 - 1. 6 mmol/L [facility] Oxygen (Bld) [Partial pressure] 331 mm[Hg] High [facility] Oxygen saturation in Blood 100 % High 94 - 98 % [facility] pH (Bld) 7.36 [pH] 7.35 - 7.45 [facility] Potassium [Moles/Vol] 4.8 mmol/L 3.5 - 5.0 mmol/L [facility] Sodium [Moles/Vol] 135 mmol/L 135 - 145 mmol/L [facility] Specimen source Nom (Unsp spec) Arterial [facility] Base excess Calc (Bld) [Moles/Vol] -1.9000 mmol/L -3.0 - 3.0 mmol/L [facility] Calcium.ionized (Bld) [Mass/Vol] 3.97 mg/dL Low 4.60 - 5.30 mg/dL [facility] CO2 (Bld) [Partial pressure] 47 mm[Hg] [facility] Glucose [Mass/Vol] 221 mg/dL High 70 - 99 mg/dL [facility] HCO3 (Bld) [Moles/Vol] 24 mmol/L 22 - 28 mmol/L [facility] Hematocrit (Bld) [Volume fraction] 27.0 % Low 40.2 - 50.4 % [facility] Hemoglobin (Bld) [Mass/Vol] 9.1 g/dL Low 13.4 - 16.8 g/dL [facility] Interpretation and review of laboratory results Abnormal [facility] Lactate [Moles/Vol] 2.8 mmol/L High 0.5 - 1. 6 mmol/L [facility] Oxygen (Bld) [Partial pressure] 330 mm[Hg] High [facility] Oxygen saturation in Blood 100 % High 94 - 98 % [facility] pH (Bld) 7.32 [pH] Low 7.35 - 7.45 [facility] Potassium [Moles/Vol] 5.7 mmol/L High 3.5 - 5.0 mmol/L [facility] Sodium [Moles/Vol] 134 mmol/L Low 135 - 145 mmol/L [facility] Specimen source Nom (Unsp spec) Arterial [facility] Base excess Calc (Bld) [Moles/Vol] -3.1000 mmol/L Low -3.0 - 3.0 mmol/L [facility] Calcium.ionized (Bld) [Mass/Vol] 3.62 mg/dL Low 4.60 - 5.30 mg/dL [facility] CO2 (Bld) [Partial pressure] 46 mm[Hg] [facility] Glucose [Mass/Vol] 250 mg/dL High 70 - 99 mg/dL [facility] HCO3 (Bld) [Moles/Vol] 23 mmol/L 22 - 28 mmol/L [facility] Hematocrit (Bld) [Volume fraction] 27.0 % Low 40.2 - 50.4 % [facility] Hemoglobin (Bld) [Mass/Vol] 8.9 g/dL Low 13.4 - 16.8 g/dL [facility] Interpretation and review of laboratory results Abnormal [facility] Lactate [Moles/Vol] 2.6 mmol/L High 0.5 - 1. 6 mmol/L [facility] Oxygen (Bld) [Partial pressure] 274 mm[Hg] High [facility] Oxygen saturation in Blood 100 % High 94 - 98 % [facility] pH (Bld) 7.31 [pH] Low 7.35 - 7.45 [facility] Potassium [Moles/Vol] 5.8 mmol/L High 3.5 - 5.0 mmol/L [facility] Sodium [Moles/Vol] 131 mmol/L Low 135 - 145 mmol/L [facility] Specimen source Nom (Unsp spec) Arterial [facility] Base excess Calc (Bld) [Moles/Vol] 0.6 mmol/L -3.0 - 3.0 mmol/L [facility] Calcium.ionized (Bld) [Mass/Vol] 3.81 mg/dL Low 4.60 - 5.30 mg/dL [facility] CO2 (Bld) [Partial pressure] 24 mm[Hg] Low [facility] Glucose [Mass/Vol] 153 mg/dL High 70 - 99 mg/dL [facility] HCO3 (Bld) [Moles/Vol] 22 mmol/L 22 - 28 mmol/L [facility] Hematocrit (Bld) [Volume fraction] 30.0 % Low 40.2 - 50.4 % [facility] Hemoglobin (Bld) [Mass/Vol] 10.0 g/dL Low 13.4 - 16.8 g/dL [facility] Interpretation and review of laboratory results Abnormal [facility] Lactate [Moles/Vol] 1.7 mmol/L High 0.5 - 1. 6 mmol/L [facility] Oxygen (Bld) [Partial pressure] 488 mm[Hg] High [facility] Oxygen saturation in Blood 100 % High 94 - 98 % [facility] pH (Bld) 7.58 [pH] Critically high 7.35 - 7.45 [facility] Potassium [Moles/Vol] 6.2 mmol/L Critically high 3.5 - 5.0 mmol/L [facility] Sodium [Moles/Vol] 131 mmol/L Low 135 - 145 mmol/L [facility] Specimen source Nom (Unsp spec) Arterial [facility] Base excess Calc (Bld) [Moles/Vol] 1.7 mmol/L -3.0 - 3.0 mmol/L [facility] Calcium.ionized (Bld) [Mass/Vol] 3.86 mg/dL Low 4.60 - 5.30 mg/dL [facility] CO2 (Bld) [Partial pressure] 48 mm[Hg] [facility] Glucose [Mass/Vol] 146 mg/dL High 70 - 99 mg/dL [facility] HCO3 (Bld) [Moles/Vol] 27 mmol/L 22 - 28 mmol/L [facility] Hematocrit (Bld) [Volume fraction] 29.0 % Low 40.2 - 50.4 % [facility] Hemoglobin (Bld) [Mass/Vol] 9.7 g/dL Low 13.4 - 16.8 g/dL [facility] Interpretation and review of laboratory results Abnormal [facility] Lactate [Moles/Vol] 1.2 mmol/L 0.5 - 1. 6 mmol/L [facility] Oxygen (Bld) [Partial pressure] 528 mm[Hg] High [facility] Oxygen saturation in Blood 100 % High 94 - 98 % [facility] pH (Bld) 7.36 [pH] 7.35 - 7.45 [facility] Potassium [Moles/Vol] 5.8 mmol/L High 3.5 - 5.0 mmol/L [facility] Sodium [Moles/Vol] 134 mmol/L Low 135 - 145 mmol/L [facility] Specimen source Nom (Unsp spec) Arterial [facility] Base excess Calc (Bld) [Moles/Vol] -0.4000 mmol/L -3.0 - 3.0 mmol/L [facility] Calcium.ionized (Bld) [Mass/Vol] 4.47 mg/dL Low 4.60 - 5.30 mg/dL [facility] CO2 (Bld) [Partial pressure] 43 mm[Hg] [facility] Glucose [Mass/Vol] 132 mg/dL High 70 - 99 mg/dL [facility] HCO3 (Bld) [Moles/Vol] 25 mmol/L 22 - 28 mmol/L [facility] Hematocrit (Bld) [Volume fraction] 39.0 % Low 40.2 - 50.4 % [facility] Hemoglobin (Bld) [Mass/Vol] 13.1 g/dL Low 13.4 - 16.8 g/dL [facility] Interpretation and review of laboratory results Abnormal [facility] Lactate [Moles/Vol] 1.2 mmol/L 0.5 - 1. 6 mmol/L [facility] Oxygen (Bld) [Partial pressure] 176 mm[Hg] High [facility] Oxygen saturation in Blood 100 % High 94 - 98 % [facility] pH (Bld) 7.37 [pH] 7.35 - 7.45 [facility] Potassium [Moles/Vol] 4.5 mmol/L 3.5 - 5.0 mmol/L [facility] Sodium [Moles/Vol] 135 mmol/L 135 - 145 mmol/L [facility] Specimen source Nom (Unsp spec) Arterial [facility] Base excess Calc (Bld) [Moles/Vol] 1.0 mmol/L -3.0 - 3.0 mmol/L [facility] Calcium.ionized (Bld) [Mass/Vol] 4.64 mg/dL 4.60 - 5.30 mg/dL [facility] CO2 (Bld) [Partial pressure] 43 mm[Hg] [facility] Glucose [Mass/Vol] 102 mg/dL High 70 - 99 mg/dL [facility] HCO3 (Bld) [Moles/Vol] 26 mmol/L 22 - 28 mmol/L [facility] Hematocrit (Bld) [Volume fraction] 41.0 % 40.2 - 50.4 % [facility] Hemoglobin (Bld) [Mass/Vol] 13.7 g/dL 13.4 - 16.8 g/dL [facility] Interpretation and review of laboratory results Abnormal [facility] Lactate [Moles/Vol] 1.0 mmol/L 0.5 - 1. 6 mmol/L [facility] Oxygen (Bld) [Partial pressure] 166 mm[Hg] High [facility] Oxygen saturation in Blood 100 % High 94 - 98 % [facility] pH (Bld) 7.39 [pH] 7.35 - 7.45 [facility] Potassium [Moles/Vol] 4.1 mmol/L 3.5 - 5.0 mmol/L [facility] Sodium [Moles/Vol] 136 mmol/L 135 - 145 mmol/L [facility] Specimen source Nom (Unsp spec) Arterial [facility] PREPARE TO TRANSFUSE CRYOPRE CIPITATE POOLSon 11-13-2023 EXPIRATION DATE [facility] Product ABO/RH(D) NUMBER [id number] [facility] UNIT NUMBER [id number] [facility] PREPARE TO TRANSFUSE OR CRYO PRECIPITATE POOLSon 11-13-2023 BLOOD COMPONENT TYPE Cryoprecipitate, Pooled [facility] EXPIRATION DATE [facility] EXPIRATION DATE [id number] [facility] Product ABO/RH(D) Negative [facility] Product ABO/RH(D) NUMBER 9500 [facility] Product ABO/RH(D) NUMBER 7300 [facility] PRODUCT CODE [id number] [facility] UNIT NUMBER [id number] [facility] UNIT NUMBER [id number] [facility] PT,INR,PTTon 11-13-2023 aPTT Coag (PPP) [Time] 28.1 s OS [facility] INR Coag (Bld) [Relative time] 1.3 {INR} High 0.9 - 1.1 [facility] Interpretation and review of laboratory results Abnormal [facility] PT Coag (PPP) [Time] 16.5 s High [facility] aPTT Coag (PPP) [Time] 28.8 s OS [facility] INR Coag (Bld) [Relative time] 1.4 {INR} High 0.9 - 1.1 [facility] PT Coag (PPP) [Time] 16.6 s High [facility] aPTT Coag (PPP) [Time] 28.9 s OS [facility] INR Coag (Bld) [Relative time] 1.4 {INR} High 0.9 - 1.1 [facility] PT Coag (PPP) [Time] 17.0 s High [facility] Portable XR Chest Viewson RADIOLOGY RADIOLOGY [facility] Radiology Study observation (narrative) [facility] Portable XR Chest ViewsOrder ed By: John Thakur on 11-13-2023 [facility] Work Phone: THERESE SIGMAon 11-13-2023 Extem S A10 44 mm Low 45 - 62 mm [facility] Extem S A20 50 mm Low 54 - 69 mm [facility] Extem S A5 36 mm 33 - 52 mm [facility] Extem S CT 72 [facility] Extem S LI60 96 % 94 - 100 % [facility] Extem S MCF 51 mm Low 57 - 72 mm [facility] Extem S ML 11 % High 0 - 6 % [facility] Fibtem S A10 7 mm 6 - 17 mm [facility] Fibtem S A20 7 mm 6 - 18 mm [facility] Fibtem S A5 6 mm 5 - 16 mm [facility] Fibtem S MCF 7 mm 6 - 19 mm [facility] Heptem S A10 44 mm 44 - 61 mm [facility] Heptem S A20 49 mm Low 52 - 67 mm [facility] Heptem S A5 35 mm 33 - 51 mm [facility] Heptem S CT 216 High [facility] Heptem S MCF 50 mm Low 54 - 69 mm [facility] Intem S CT 365 High [facility] Interpretation and review of laboratory results Abnormal [facility] TRANSFUSE OR CRYOPRECIPITATE POOLSOrdered By: Chen Smyth [facility] 11-13-2023 [facility]: XR Abdomen Single viewon RADIOLOGY RADIOLOGY [facility] Radiology Study observation (narrative) [facility] XR Abdomen Single viewOrdere d By: Keshia Meléndez on 11-13-2023 [facility] CBC,PLATELETSon 10-23-2023 Erythrocyte distribution width (RBC) [Ratio] 12.9 % 10.9 - 14.3 % [facility] Hematocrit (Bld) [Volume fraction] 42.8 % 39.6 - 48.8 % [facility] Hemoglobin (Bld) [Mass/Vol] 14.5 g/dL 13.4 - 16.8 g/dL [facility] Interpretation and review of laboratory results Normal [facility] MCH (RBC) [Entitic mass] 29.5 pg 26.1 - 33.3 pg [facility] MCHC (RBC) [Mass/Vol] 33.9 g/dL 31.9 - 36.5 g/dL [facility] MCV (RBC) [Entitic vol] 87.2 fL 79.0 - 94.5 fL [facility] Platelet mean volume (Bld) [Entitic vol] 9.8 fL 8.7 - 12.3 fL [facility] Platelets (Bld) [#/Vol] 265 10*3/uL 146 - 337 K/uL [facility] RBC (Bld) [#/Vol] 4.91 10*6/uL [facility] WBC (Bld) [#/Vol] 8.20 10*3/uL 3.73 - 10.10 K/uL [facility] CHEM 7 (LYTES,BUN,CREA,GLUC) on 10-23-2023 Anion gap [Moles/Vol] 12 mmol/L 7 - 17 mmol/L [facility] Chloride [Moles/Vol] 108 mmol/L 98 - 10 8 mmol/L [facility] CO2 [Moles/Vol] 22 mmol/L 21 - 31 mmol/L [facility] Creatinine [Mass/Vol] 0.99 mg/dL 0.70 - 1.30 mg/dL [facility] eGFR, CKD-EPI, Male 84 - PINF [facility] Comment on above: Reported eGFR is bas ed on the CKD-EPI 2020 equation using creatinine, age, and sex. Glucose [Mass/Vol] 90 mg/dL 70 - 99 mg/dL [facility] Osmolality Calc [Osmolality] 291 [facility] Potassium [Moles/Vol] 4.3 mmol/L 3.5 - 5.0 mmol/L [facility] Sodium [Moles/Vol] 138 mmol/L 135 - 145 mmol/L [facility] Urea nitrogen [Mass/Vol] 19 mg/dL 7 - 25 mg/dL [facility] Urea nitrogen/Creatinine [Mass ratio] 19 mg/mg [facility] Cardiac catheterization stud yOrdered By: Evan Mosqueda on 10-23-2023 Body surface area Derived from formula 2.11 m2 [facility] Work Phone: [facility] Work Phone: Cardiac catheterization stud yon 10-23-2023 Coronary Angiogram (limited to further assess below) and Instantaneous Wave-Free Ratio (iFR): 1) There is a 60% stenosis in the proximal left anterior descending artery with an iFR of 0.98 representing a non-significant physiologic stenosis. 2) There is a 40% stenosis in the first diagonal branch (wire placed in the larger inferior branch after the bifurcation) with an iFR of 0.99 representing a non-significant physiologic stenosis. 3) There is a 20% stenosis in the proximal left circumflex artery. 4) Please refer to diagnostic cardiac catheterization 10/19/23 for further details on coronary anatomy. Recommendations: 1) Final recommendations per primary team. Coronary Findings Diagnostic Dominance: Right Left Anterior Descending: Prox LAD lesion is 60% stenosed. Instantaneous wave-free ratio calculation was performed on the lesion. [employer] 185CM PRESSURE GUIDEWIRE used for measurements. Instantaneous wave-free ratio: 0.98. First Diagonal Branch: 1st Diag lesion is 40% stenosed. Instantaneous wave-free ratio calculation was performed on the lesion. [employer] 185CM PRESSURE GUIDEWIRE used for measurements. Instantaneous wave-free ratio: 0.99. Intervention No interventions have been documented. [facility] MAGNESIUMon 10-23-2023 Interpretation and review of laboratory results Normal [facility] Magnesium [Mass/Vol] 1.8 mg/dL 1.6 - 2 .6 mg/dL [facility] No Panel Informationon 10-23 [facility] ACT* LOW RANGE, POCon 2023 ACT LOW RANGE, POC 168.0 High [facility] Interpretation and review of laboratory results Abnormal [facility] Test performed at address of the patient encounter. [facility] ACT LOW RANGE, POC 202.0 High [facility] Interpretation and review of laboratory results Abnormal [facility] Test performed at address of the patient encounter. [facility] ACT LOW RANGE, POC 205.0 High [facility] Interpretation and review of laboratory results Abnormal [facility] Test performed at address of the patient encounter. [facility] ACT LOW RANGE, POC 224.0 High [facility] Interpretation and review of laboratory results Abnormal [facility] [facility] Test performed at address of the patient encounter. [facility] ACT LOW RANGE, POC [facility] Comment on above: Out of Range High. The test result is outside clinical range and should not be used for patient-management decisions. Test performed at address of the patient encounter. [facility] ACT LOW RANGE, POC 207.0 High [facility] Interpretation and review of laboratory results Abnormal [facility] Test performed at address of the patient encounter. [facility] ACT LOW RANGE, POC 144.0 [facility] Interpretation and review of laboratory results Normal [facility] Test performed at address of the patient encounter. [facility] CBC,PLATELETSon 10-22-2023 Erythrocyte distribution width (RBC) [Ratio] 12.8 % 10.9 - 14.3 % [facility] Hematocrit (Bld) [Volume fraction] 45.0 % 39.6 - 48.8 % [facility] Hemoglobin (Bld) [Mass/Vol] 15.1 g/dL 13.4 - 16.8 g/dL [facility] Interpretation and review of laboratory results Normal [facility] MCH (RBC) [Entitic mass] 28.6 pg 26.1 - 33.3 pg [facility] MCHC (RBC) [Mass/Vol] 33.6 g/dL 31.9 - 36.5 g/dL [facility] MCV (RBC) [Entitic vol] 85.2 fL 79.0 - 94.5 fL [facility] Platelet mean volume (Bld) [Entitic vol] 9.6 fL 8.7 - 12.3 fL [facility] Platelets (Bld) [#/Vol] 274 10*3/uL 146 - 337 K/uL [facility] RBC (Bld) [#/Vol] 5.28 10*6/uL [facility] WBC (Bld) [#/Vol] 9.29 10*3/uL 3.73 - 10.10 K/uL [facility] CHEM 7 (LYTES,BUN,CREA,GLUC) on 10-22-2023 Anion gap [Moles/Vol] 13 mmol/L 7 - 17 mmol/L [facility] Chloride [Moles/Vol] 105 mmol/L 98 - 10 8 mmol/L [facility] CO2 [Moles/Vol] 23 mmol/L 21 - 31 mmol/L [facility] Creatinine [Mass/Vol] 0.88 mg/dL 0.70 - 1.30 mg/dL [facility] eGFR, CKD-EPI, Male - PINF [facility] Comment on above: Reported eGFR is bas ed on the CKD-EPI 2020 equation using creatinine, age, and sex. Glucose [Mass/Vol] 112 mg/dL High 70 - 99 mg/dL [facility] Interpretation and review of laboratory results Abnormal [facility] Osmolality Calc [Osmolality] 292 [facility] Potassium [Moles/Vol] 4.1 mmol/L 3.5 - 5.0 mmol/L [facility] Sodium [Moles/Vol] 137 mmol/L 135 - 145 mmol/L [facility] Urea nitrogen [Mass/Vol] 23 mg/dL 7 - 25 mg/dL [facility] Urea nitrogen/Creatinine [Mass ratio] 26 mg/mg [facility] CONTINUOUS CARDIAC MONITORIN G STRIPon 10-22-2023 [facility] CT Chest and Abdomen and Pel vis WO and W contrast Ricky 10-22-2023 IMPRESSION: 1. Aortic root dilation, measuring up to 57 mm. There is also enlargement of the ascending thoracic aorta, measuring up to 48 mm at its midpoint. Please see above for a vessel by vessel description. 2. Indeterminate exophytic left lower pole renal lesion. Recommend nonemergent renal protocol CT or MRI for further evaluation. 3. Inferior right upper lobe pulmonary nodule measuring up to 6 mm. Per Fleischner criteria, recommend CT follow-up at 6-12 months. 4. Left adrenal nodule within average density of <0 on noncontrast imaging, likely representing an adrenal adenoma. OLOGY EXAM: CT ANEURYSM ST UDY WITH AND WITHOUT CONTRAST CHEST/ABDOMEN/PELVIS, 10/20/2023 08:41 AM CLINICAL INDICATION: c/f dilated aortic root; COMPARISON: 63 y.o. male with a history of newly diagnosed CAD who presents with chest pain, positive enzymes, severe CAD. Underwent left heart catheter outside hospital and a dilated aortic root was noted incidentally during the exam. TECHNIQUE: The imaging was performed using a MDCT system. It included a spiral acquisition from the shoulders to the upper thighs in order to assess the entire thoracic aorta and arch branches, abdominal aorta and branches, and iliac arteries. 3D reconstruction was performed on an independent workstation based on specific patient condition and were reviewed and approved by Daniel Mayorga MD. CONTRAST: iohexol (OMNIPAQUE) 350 MG/ML injection 1-171 mL; Route of Administration: Intravenous; Dose: 90 mL. FINDINGS: Chest Wall: Normal Mediastinum: Normal, without adenopathy Maddie: Normal, without adenopathy Pleural Spaces: Normal, without thickening/effusion or pneumothorax Lung Parenchyma: Negative focal consolidation. Trace bibasilar atelectasis. Inferior right lower lobe pleural-based pulmonary nodule measuring 6 mm. Pericardium: Normal, without thickening/effusion -------- Atria: Normal, without thrombus Right Ventricle: Normal Left Ventricle: Normal Coronary Arteries: Coronary artery atherosclerosis, not fully evaluated on this nondedicated exam. Valves: Normal Pulmonary Arteries: Normal for nondedicated exam. Negative for central pulmonary embolism. Suboptimal evaluation of peripheral pulmonary arteries. -------- Thoracic Aorta: Root: Diameter - 57 mm Sino-Tubular Junction: Intact Mid-Ascending Segment = No atherosclerosis; Enlarged to 48 mm Proximal Arch = No atherosclerosis, upper limits of normal in diameter. Distal Arch = No atherosclerosis, Normal in diameter Isthmus = No atherosclerosis, Normal in diameter Mid-Descending Segment = No atherosclerosis, Normal in diameter Diaphragm Level = No atherosclerosis, Normal in diameter Arch Branches: Normal -------- Abdominal Aorta: Suprarenal Segment = No atherosclerosis, Normal in diameter Renal Artery Level = No atherosclerosis, Normal in diameter Infrarenal Segment = Mild atherosclerosis, Normal in diameter Visceral arteries: The celiac trunk and its major branches are patent and normal in course and caliber. The SMA is patent. The EBONIE is patent. Renal arteries: Single renal arteries are identified bilaterally. The renal arteries are patent. Iliac vessels: The common, internal, and external iliac arteries are patent and normal in course and caliber. Femoral vessels: Minimal atherosclerosis of the patent bilateral common femoral arteries. Visualized bilateral superficial femoral arteries and profundas are patent and unremarkable. -------- Single arterial phase limits evaluation of the abdominal viscera. Liver: Liver is smooth in contour and homogeneous in enhancement. No suspicious hepatic lesion. Biliary/Gallbladder: The gallbladder is normally distended without evidence of stones. No wall thickening or pericholycystic fluid. The biliary tree is nondilated. Spleen: Unremarkable Pancreas: There is no gross evidence of pancreatic mass or peripancreatic fluid. No ductal dilatation. Kidneys: The kidneys enhance symmetrically. No hydronephrosis. At the left inferior pole there is a exophytic intermediate density lesion (approximately 53 HU) measuring 2.3 cm. Adrenals: Right adrenal vein unremarkable. There is a 2.1 cm rounded left adrenal nodule with an average density of -9.7HU on noncontrast images, likely representing adrenal adenoma. Retroperitoneal: No retroperitoneal adenopathy is identified. Gastrointestinal: The stomach is partially distended and appears grossly unremarkable. The bowel loops are non-dilated and negative for wall thickening. Mesentery/Peritoneum: Mesentery is unremarkable. No peritoneal free air or free fluid. Bladder: Unremarkable. Genital: No acute abnormalities. Pelvic lymph nodes: No evidence of pelvic lymphadenopathy. Bony Structures: No acute osseous abnormalities. Lower lumbar degenerative changes. Other: Soft tissues are grossly unremarkable. RADIOLOGY Daniel Mayorga MD - 10/22/2023 EXAM: CT ANEURYSM STUDY WITH AND WITHOUT CONTRAST CHEST/ABDOMEN/PELVIS, 10/20/2023 08:41 AM CLINICAL INDICATION: c/f dilated aortic root; COMPARISON: 63 y.o. male with a history of newly diagnosed CAD who presents with chest pain, positive enzymes, severe CAD. Underwent left heart catheter outside hospital and a dilated aortic root was noted incidentally during the exam. TECHNIQUE: The imaging was performed using a MDCT system. It included a spiral acquisition from the shoulders to the upper thighs in order to assess the entire thoracic aorta and arch branches, abdominal aorta and branches, and iliac arteries. 3D reconstruction was performed on an independent workstation based on specific patient condition and were reviewed and approved by Daniel Mayorga MD. CONTRAST: iohexol (OMNIPAQUE) 350 MG/ML injection 1-171 mL; Route of Administration: Intravenous; Dose: 90 mL. FINDINGS: Chest Wall: Normal Mediastinum: Normal, without adenopathy Maddie: Normal, without adenopathy Pleural Spaces: Normal, without thickening/effusion or pneumothorax Lung Parenchyma: Negative focal consolidation. Trace bibasilar atelectasis. Inferior right lower lobe pleural-based pulmonary nodule measuring 6 mm. Pericardium: Normal, without thickening/effusion ------ -- Atria: Normal, without thrombus Right Ventricle: Normal Left Ventricle: Normal Coronary Arteries: Coronary artery atherosclerosis, not fully evaluated on this nondedicated exam. Valves: Normal Pulmonary Arteries: Normal for nondedicated exam. Negative for central pulmonary embolism. Suboptimal evaluation of peripheral pulmonary arteries. ------ -- Thoracic Aorta: Root: Diameter - 57 mm Sino-Tubular Junction: Intact Mid-Ascending Segment = No atherosclerosis; Enlarged to 48 mm Proximal Arch = No atherosclerosis, upper limits of normal in diameter. Distal Arch = No atherosclerosis, Normal in diameter Isthmus = No atherosclerosis, Normal in diameter Mid-Descending Segment = No atherosclerosis, Normal in diameter Diaphragm Level = No atherosclerosis, Normal in diameter Arch Branches: Normal ------ -- Abdominal Aorta: Suprarenal Segment = No atherosclerosis, Normal in diameter Renal Artery Level = No atherosclerosis, Normal in diameter Infrarenal Segment = Mild atherosclerosis, Normal in diameter Visceral arteries: The celiac trunk and its major branches are patent and normal in course and caliber. The SMA is patent. The EBONIE is patent. Renal arteries: Single renal arteries are identified bilaterally. The renal arteries are patent. Iliac vessels: The common, internal, and external iliac arteries are patent and normal in course and caliber. Femoral vessels: Minimal atherosclerosis of the patent bilateral common femoral arteries. Visualized bilateral superficial femoral arteries and profundas are patent and unremarkable. ------ -- Single arterial phase limits evaluation of the abdominal viscera. Liver: Liver is smooth in contour and homogeneous in enhancement. No suspicious hepatic lesion. Biliary/Gallbladder: The gallbladder is normally distended without evidence of stones. No wall thickening or pericholycystic fluid. The biliary tree is nondilated. Spleen: Unremarkable Pancreas: There is no gross evidence of pancreatic mass or peripancreatic fluid. No ductal dilatation. Kidneys: The kidneys enhance symmetrically. No hydronephrosis. At the left inferior pole there is a exophytic intermediate density lesion (approximately 53 HU) measuring 2.3 cm. Adrenals: Right adrenal vein unremarkable. There is a 2.1 cm rounded left adrenal nodule with an average density of -9.7HU on noncontrast images, likely representing adrenal adenoma. Retroperitoneal: No retroperitoneal adenopathy is identified. Gastrointestinal: The stomach is partially distended and appears grossly unremarkable. The bowel loops are non-dilated and negative for wall thickening. Mesentery/Peritoneum: Mesentery is unremarkable. No peritoneal free air or free fluid. Bladder: Unremarkable. Genital: No acute abnormalities. Pelvic lymph nodes: No evidence of pelvic lymphadenopathy. Bony Structures: No acute osseous abnormalities. Lower lumbar degenerative changes. Other: Soft tissues are grossly unremarkable. IMPRESSION IMPRESSION: 1. Aortic root dilation, measuring up to 57 mm. There is also enlargement of the ascending thoracic aorta, measuring up to 48 mm at its midpoint. Please see above for a vessel by vessel description. 2. Indeterminate exophytic left lowe (more content not included)... [facility] CT Chest and Abdomen and Pel vis WO and W contrast IVOrdered By: Daniel Mayorga on 10-22-2023 [facility] Work Phone: Cardiac catheterization stud yon 10-22-2023 [facility] Radiology Study observation (narrative) [facility] MAGNESIUMon 10-22-2023 Magnesium [Mass/Vol] 1.9 mg/dL 1.6 - 2 .6 mg/dL [facility] No Panel Informationon 10-22 Interpretation and review of laboratory results Normal [facility] PREALBUMINon 10-22-2023 Prealbumin [Mass/Vol] 24 mg/dL 17 - 3 4 mg/dL [facility] PTTon 10-22-2023 aPTT Coag (PPP) [Time] 105.6 s High [facility] Interpretation and review of laboratory results Abnormal [facility] PTTOrdered By: Shasha Gregory on 10-22-2023 aPTT Coag (PPP) [Time] 149.0 s High [facility] Interpretation and review of laboratory results Abnormal [facility] PTTOrdered By: Ancelmo Coleman on 10-22-2023 aPTT Coag (PPP) [Time] 91.6 s High [facility] Interpretation and review of laboratory results Abnormal [facility] CBC,PLATELETSon 10-21-2023 Erythrocyte distribution width (RBC) [Ratio] 13.1 % 10.9 - 14.3 % [facility] Hematocrit (Bld) [Volume fraction] 44.5 % 39.6 - 48.8 % [facility] Hemoglobin (Bld) [Mass/Vol] 14.6 g/dL 13.4 - 16.8 g/dL [facility] Interpretation and review of laboratory results Normal [facility] MCH (RBC) [Entitic mass] 28.9 pg 26.1 - 33.3 pg [facility] MCHC (RBC) [Mass/Vol] 32.8 g/dL 31.9 - 36.5 g/dL [facility] MCV (RBC) [Entitic vol] 88.1 fL 79.0 - 94.5 fL [facility] Platelet mean volume (Bld) [Entitic vol] 10.1 fL 8.7 - 12.3 fL [facility] Platelets (Bld) [#/Vol] 263 10*3/uL 146 - 337 K/uL [facility] RBC (Bld) [#/Vol] 5.05 10*6/uL [facility] WBC (Bld) [#/Vol] 9.01 10*3/uL 3.73 - 10.10 K/uL [facility] CHEM 7 (LYTES,BUN,CREA,GLUC) on 10-21-2023 Anion gap [Moles/Vol] 13 mmol/L 7 - 17 mmol/L [facility] Chloride [Moles/Vol] 109 mmol/L High 98 - 10 8 mmol/L [facility] CO2 [Moles/Vol] 22 mmol/L 21 - 31 mmol/L [facility] Creatinine [Mass/Vol] 0.75 mg/dL 0.70 - 1.30 mg/dL [facility] eGFR, CKD-EPI, Male - PINF [facility] Comment on above: Reported eGFR is bas ed on the CKD-EPI 2020 equation using creatinine, age, and sex. Glucose [Mass/Vol] 85 mg/dL 70 - 99 mg/dL [facility] Interpretation and review of laboratory results Abnormal [facility] Osmolality Calc [Osmolality] 294 [facility] Potassium [Moles/Vol] 4.3 mmol/L 3.5 - 5.0 mmol/L [facility] Comment on above: Slightly hemolyzed Sodium [Moles/Vol] 140 mmol/L 135 - 145 mmol/L [facility] Urea nitrogen [Mass/Vol] 18 mg/dL 7 - 25 mg/dL [facility] Urea nitrogen/Creatinine [Mass ratio] 24 mg/mg [facility] CONTINUOUS CARDIAC MONITORIN G STRIPon 10-21-2023 [facility] FERRITINon 10-21-2023 Ferritin [Mass/Vol] 84.3 ng/mL 10.5 - 307.3 ng/mL [facility] Interpretation and review of laboratory results Normal [facility] FOLATE, SERUMon 10-21-2023 Folate [Mass/Vol] 14.91 ng/mL 5.38 - PIN F ng/mL [facility] Interpretation and review of laboratory results Normal [facility] HEMOGLOBIN A1Con 10-21-2023 Average glucose Estimated from glycated hemoglobin (Bld) [Mass/Vol] 105 mg/dL [facility] HbA1c (Bld) [Mass fraction] 5.3 % 4.7 - 5.6 % [facility] HEPATIC FUNCTION PANELon Albumin [Mass/Vol] 3.3 g/dL Low 3.5 - 5.0 g/dL [facility] ALP [Catalytic activity/Vol] 37 U/L 32 - 126 U/L [facility] ALT [Catalytic activity/Vol] 14 U/L 10 - 52 U/L [facility] Comment on above: Slightly hemolyzed AST [Catalytic activity/Vol] 26 U/L 10 - 39 U/L [facility] Comment on above: Slightly hemolyzed Bilirubin [Mass/Vol] 0.7 mg/dL NINF - 1.5 mg/dL [facility] Comment on above: Slightly hemolyzed Bilirubin.direct [Mass/Vol] 0.1 mg/dL NINF - 0.3 mg/dL [facility] Comment on above: Slightly hemolyzed Protein [Mass/Vol] 5.7 g/dL Low 6.4 - 8.3 g/dL [facility] IRON/IRON BINDING/TRANSFERRI Non 10-21-2023 Iron [Mass/Vol] 91 ug/dL [facility] Comment on above: Slightly hemolyzed Iron binding capacity [Mass/Vol] 231 Low [facility] Iron saturation [Mass fraction] 39 % 20 - 55 % [facility] Transferrin [Mass/Vol] 185 mg/dL Low 200 - 400 mg/dL [facility] LIPID PANEL W CALCULATED LDL on 10-21-2023 Cholesterol [Mass/Vol] 105 mg/dL NINF - 200 mg/dL [facility] Comment on above: [<200 mg/dL: Desirab le] [200-239 mg/dL: Borderline High] [>239 mg/dL: High] Cholesterol in HDL [Mass/Vol] 35 mg/dL Low 40 - PINF mg/dL [facility] Comment on above: [<40 mg/dL: Low (Hig h Risk)] [>59 mg/dL: High (Low Risk)] Cholesterol in LDL [Mass/Vol] 61 mg/dL 0 - 99 mg/dL [facility] Comment on above: [<100 mg/dL: Optimal ] [100-129 mg/dL: Near Optimal] [130-159 mg/dL: Borderline High] [160-189 mg/dL: High] [>189 mg/dL: Very High] Cholesterol non HDL [Mass/Vol] 70 mg/dL NINF - 130 mg/dL [facility] Cholesterol.total/Kerry sterol in HDL [Mass ratio] 3.0 {ratio} NINF - 4.5 [facility] Triglyceride [Mass/Vol] 45 mg/dL NINF - 150 mg/dL [facility] Comment on above: [<150 mg/dL: Desirab le] [150-199 mg/dL: Borderline] [200-499 mg/dL: High] [>500 mg/dL: Very High] MAGNESIUMon 10-21-2023 Interpretation and review of laboratory results Normal [facility] Magnesium [Mass/Vol] 1.8 mg/dL 1.6 - 2 .6 mg/dL [facility] Comment on above: Slightly hemolyzed MR Abdomen WO and W contrast Ricky 10-21-2023 IMPRESSION: 1. The left lower pole renal lesion corresponds to a hemorrhagic/proteinaceo us cyst. No suspicious renal masses. 2. The left adrenal nodule demonstrates features consistent with a benign, lipid rich adenoma. OLOGY EXAM: MRI ABDOMEN WI TH AND WITHOUT CONTRAST, 10/21/2023 17:56 PM CLINICAL INDICATIONS: renal protocol for exophylic left lower pole lesion and left adrenal lesion; COMPARISON: CT angiogram October 20, 2023 TECHNIQUE: Multiplanar, multisequence MRI scanning was performed of the abdomen before and after the administration of intravenous contrast. CONTRAST: Gadopiclenol SOLN 1-25 mL; Route of Administration: Intravenous; Dose: 8.5 mL. FINDINGS: Lung Bases: Grossly stable small nodule in the middle lobe. Otherwise the lung bases appear grossly clear the limitations of MRI. Liver: Normal. Gallbladder: Normal. Bile Ducts: Normal in caliber. Spleen: Normal. Pancreas: Normal. Adrenals: Normal right adrenal gland. Stable left adrenal nodule with signal loss on out of phase imaging consistent with an adenoma. Kidneys: Symmetric size and enhancement with a small cyst with thin internal septation in the right lower pole as well as an intrinsically T1 hyperintense exophytic cyst arising from the left lower pole without suspicious features (Bosniak II equivalents). No suspicious renal mass. No hydronephrosis. Gastrointestinal: No bowel dilation. Lymph nodes: No enlarged or morphologically abnormal lymph nodes. Peritoneum/retroperiton eum: No ascites. Vasculature: The abdominal aorta is normal in course and caliber. Patent celiac and superior mesenteric arteries. Patent portal, splenic, and superior mesenteric veins. Body Wall: Normal. Bones: Degenerative changes of the spine. No aggressive lesion. RADIOLOGY Dimitry Amaya MD - 10/21/2023 EXAM: MRI ABDOMEN WITH AND WITHOUT CONTRAST, 10/21/2023 17:56 PM CLINICAL INDICATIONS: renal protocol for exophylic left lower pole lesion and left adrenal lesion; COMPARISON: CT angiogram October 20, 2023 TECHNIQUE: Multiplanar, multisequence MRI scanning was performed of the abdomen before and after the administration of intravenous contrast. CONTRAST: Gadopiclenol SOLN 1-25 mL; Route of Administration: Intravenous; Dose: 8.5 mL. FINDINGS: Lung Bases: Grossly stable small nodule in the middle lobe. Otherwise the lung bases appear grossly clear the limitations of MRI. Liver: Normal. Gallbladder: Normal. Bile Ducts: Normal in caliber. Spleen: Normal. Pancreas: Normal. Adrenals: Normal right adrenal gland. Stable left adrenal nodule with signal loss on out of phase imaging consistent with an adenoma. Kidneys: Symmetric size and enhancement with a small cyst with thin internal septation in the right lower pole as well as an intrinsically T1 hyperintense exophytic cyst arising from the left lower pole without suspicious features (Bosniak II equivalents). No suspicious renal mass. No hydronephrosis. Gastrointestinal: No bowel dilation. Lymph nodes: No enlarged or morphologically abnormal lymph nodes. Peritoneum/retroperiton eum: No ascites. Vasculature: The abdominal aorta is normal in course and caliber. Patent celiac and superior mesenteric arteries. Patent portal, splenic, and superior mesenteric veins. Body Wall: Normal. Bones: Degenerative changes of the spine. No aggressive lesion. IMPRESSION IMPRESSION: 1. The left lower pole renal lesion corresponds to a hemorrhagic/proteinaceo us cyst. No suspicious renal masses. 2. The left adrenal nodule demonstrates features consistent with a benign, lipid rich adenoma. [facility] Radiology Study observation (narrative) [facility] MR Abdomen WO and W contrast IVOrdered By: Dimitry Amaya on 10-21-2023 [facility] Work Phone: No Panel Informationon 10-21 Interpretation and review of laboratory results Normal [facility] Interpretation and review of laboratory results Abnormal [facility] PTTon 10-21-2023 aPTT Coag (PPP) [Time] 68.6 s High [facility] Interpretation and review of laboratory results Abnormal [facility] aPTT Coag (PPP) [Time] 79.2 s High [facility] Interpretation and review of laboratory results Abnormal [facility] aPTT Coag (PPP) [Time] 77.9 s High OS [facility] Interpretation and review of laboratory results Abnormal [facility] SCREEN: MRSA/MSSAOrdered By: Mickey Ellison on 10-21-2023 Interpretation and review of laboratory results Normal [facility] Methicillin Resistant S. Aureus By Pcr Negative Negative [facility] Staphylococcus Aureus By Pcr Negative Negative [facility] This test was perfor med using a real time PCR assay. Results should be interpreted in conjunction with other clinical and laboratory findings. A positive result does not necessarily indicate the presence of viable organism. This test should not be used as a test of cure. For E-swab specimens, this test was developed and its performance characteristics determined by the Clinical Microbiology Laboratory at [facility] [place]. It has not been cleared or approved by the FDA.The laboratory is regulated under CLIA as qualified to perform high-complexity testing. This test is used for clinical purposes. It should not be regarded as investigational or for research. [facility] T4 FREEon 10-21-2023 Free T4 [Mass/Vol] 1.44 ng/dL 0.89 - 1. 76 ng/dL [facility] TSHon 10-21-2023 Interpretation and review of laboratory results Normal [facility] TSH Qn 0.620 m[IU]/L [facility] VITAMIN B12on 10-21-2023 Cobalamin (Vitamin B12) [Mass/Vol] 885 pg/mL 211 - 911 pg/mL [facility] Comment on above: Testing of Methylmal onic Acid and Intrinsic Factor Blocking Antibody are recommended if clinical suspicion for pernicious anemia due to B12 deficiency is high for patients with intermediate B12 levels (211 to 400 pg/mL) to rule out spurious heterophile antibodies. B-TYPE NATRIURETIC PEPTIDE ( BRAIN)on 10-20-2023 Interpretation and review of laboratory results Abnormal [facility] Natriuretic peptide B (Bld) [Mass/Vol] 143 pg/mL High 0 - 100 pg/mL [facility] CBC,PLATELETSon 10-20-2023 Erythrocyte distribution width (RBC) [Ratio] 13.1 % 10.9 - 14.3 % [facility] Hematocrit (Bld) [Volume fraction] 47.4 % 39.6 - 48.8 % [facility] Hemoglobin (Bld) [Mass/Vol] 15.5 g/dL 13.4 - 16.8 g/dL [facility] Interpretation and review of laboratory results Abnormal [facility] MCH (RBC) [Entitic mass] 28.8 pg 26.1 - 33.3 pg [facility] MCHC (RBC) [Mass/Vol] 32.7 g/dL 31.9 - 36.5 g/dL [facility] MCV (RBC) [Entitic vol] 88.1 fL 79.0 - 94.5 fL [facility] Platelet mean volume (Bld) [Entitic vol] 9.9 fL 8.7 - 12.3 fL [facility] Platelets (Bld) [#/Vol] 274 10*3/uL 146 - 337 K/uL [facility] RBC (Bld) [#/Vol] 5.38 10*6/uL [facility] WBC (Bld) [#/Vol] 11.40 10*3/uL High 3.73 - 10.10 K/uL [facility] CHEM 7 (LYTES,BUN,CREA,GLUC) on 10-20-2023 Anion gap [Moles/Vol] 13 mmol/L 7 - 17 mmol/L [facility] Chloride [Moles/Vol] 106 mmol/L 98 - 10 8 mmol/L [facility] CO2 [Moles/Vol] 23 mmol/L 21 - 31 mmol/L [facility] Creatinine [Mass/Vol] 0.90 mg/dL 0.70 - 1.30 mg/dL [facility] eGFR, CKD-EPI, Male - PINF [facility] Comment on above: Reported eGFR is bas ed on the CKD-EPI 2020 equation using creatinine, age, and sex. Glucose [Mass/Vol] 97 mg/dL 70 - 99 mg/dL [facility] Osmolality Calc [facility]olality] [facility] Potassium [Moles/Vol] 4.3 mmol/L 3.5 - 5.0 mmol/L [facility] Comment on above: Slightly hemolyzed Sodium [Moles/Vol] 138 mmol/L 135 - 145 mmol/L [facility] Urea nitrogen [Mass/Vol] 18 mg/dL 7 - 25 mg/dL [facility] Urea nitrogen/Creatinine [Mass ratio] 20 mg/mg [facility] CONTINUOUS CARDIAC MONITORIN G STRIPon 10-20-2023 [facility] CONTINUOUS CARDIAC MONITORIN G STRIPOrdered By: Unassigned Pacs on 10-20-2023 [facility] Work Phone: CT Chest and Abdomen and Pel vis WO and W contrast Ricky 10-20-2023 Radiology Study observation (narrative) [facility] HIGH SENSITIVITY TROPONIN I - SINGLE ORDEROrdered By: Calin Patino on 10-20-2023 Interpretation and review of laboratory results Abnormal [facility] Troponin I.cardiac High sensitivity method [Mass/Vol] 77 ng/L High NINF - 53 ng/L [facility] MAGNESIUMon 10-20-2023 Interpretation and review of laboratory results Normal [facility] Magnesium [Mass/Vol] 1.9 mg/dL 1.6 - 2 .6 mg/dL [facility] Comment on above: Slightly hemolyzed No Panel Informationon 10-20 [facility] PT,INR,PTTon 10-20-2023 aPTT Coag (PPP) [Time] 32.2 s OS [facility] INR Coag (Bld) [Relative time] 1.1 {INR} 0.9 - 1.1 [facility] Interpretation and review of laboratory results Normal [facility] PT Coag (PPP) [Time] 13.6 [facility] PTTOrdered By: Maritza watson on 10-20-2023 aPTT Coag (PPP) [Time] 66.1 s High OS [facility] Interpretation and review of laboratory results [facility] PTTon 10-20-2023 aPTT Coag (PPP) [Time] 40.8 s High OS [facility] Interpretation and review of laboratory results Abnormal [facility] Absolute lymphocyte countOrd ered By: Nora Rivera on 10-19-2023 Lymphocytes Auto (Unsp spec) [#/Vol] 1.73 10*3/uL 0.83-4.51 [facility] Activated partial thrombopla stin time (aPTT) in platelet poor plasma by coagulation aOrdered By: Mathew Gnozalez on 10-19-2023 aPTT Coag (PPP) [Time] 53.7 s 24.1-36.2 [facility] Automated lymphocyte count a s percentage of total leukocytesOrdered By: Nora Rivera on 10-19-2023 Lymphocytes/100 WBC Auto (Unsp spec) 16.8 % 19-41 [facility] Basophil percentageOrdered B y: Nora Rivera on 10-19-2023 Basophil percentage 2.9 mg/dL 2.5-4.9 [facility] Basophils/100 WBC (Bld) 0.6 % 0-1 [facility] Bilirubin [Mass/Vol] 0.90 mg/dL 0.20-1.00 [facility] Comment on above: For patients on eltr ombopag therapy, use of Dimension [place] TBIL is not recommended. Chloride [Moles/Vol] 110 mmol/L 98-107 [facility] Cholesterol [Mass/Vol] 122 mg/dL <200 [facility] Comment on above: <200 mg/dL Desirable 200-240 mg/dL Borderline >240 mg/dL High Risk Eosinophils/100 WBC (Bld) 4.1 % 0-5 [facility] Glucose [Mass/Vol] 107 mg/dL 74-106 [facility] Comment on above: Fasting Glucose resu lt from 100 to 125 mg/dL suggests IMPAIRED HOMEOSTASIS per A.D.A. criteria. Hemoglobin (Bld) [Mass/Vol] 14.4 g/dL 13.0-16.5 [facility] Monocytes/100 WBC (Bld) 7.9 % 0-10 [facility] Neutrophils (Bld) [#/Vol] 7.2 10*3/uL 2.0-7.7 [facility] Neutrophils/100 WBC (Bld) 70.2 % 47-70 [facility] Potassium [Moles/Vol] 3.9 mmol/L 3.5-5.1 [facility] Protein [Mass/Vol] 6.1 g/dL 6.4-8.2 [facility] Sodium [Moles/Vol] 140 mmol/L 136-145 [facility] Triglyceride [Mass/Vol] 59 mg/dL <199 [facility] Comment on above: The drugs N-Acetylcy steine and Metamizole may falsely depress this assay.Serum Triglycerides Reference Interval Normal <150 mg/dL Borderline high 150 - 199 mg/dL High 200 - 499 mg/dL Very High > or = 500 mg/dL WBC (Bld) [#/Vol] 10.3 10*3/uL 4.4-11.0 [facility] Determination of erythrocyte mean corpuscular volume (MCV)Ordered By: Nora Rivera on 10-19-2023 MCV (RBC) [Entitic vol] 86.7 fL 80-94 [facility] Erythrocyte distribution wid th ratioOrdered By: Nora Rivera on 10-19-2023 Erythrocyte distribution width (RBC) [Ratio] 12.9 % 11.6-14.6 [facility] Erythrocyte distribution wid th standard deviationOrdered By: Nora Rivera on 10-19-2023 Erythrocyte distribution width (RBC) [Entitic vol] 40.3 fL 35.1-43.9 [facility] Hematocrit Auto (Bld) [Volum e fraction]Ordered By: Nora Rivera on 10-19-2023 Hematocrit (Bld) [Volume fraction] 43.5 % 40-54 [facility] Immature granulocytes/100 WB C Auto (Bld)Ordered By: Nora Rivera on 10-19-2023 Immature granulocytes/100 WBC (Bld) 0.400 % 0.0-0.9 [facility] Comment on above: IG% - Immature Granu locytes (promyelocytes, myelocytes and metamyelocytes) > 1% indicates that a LEFT SHIFT is Present. Laboratory - Chemistry and C hemistry - challengeOrdered By: Nora Rivera on 10-19-2023 Albumin/Globulin [Mass ratio] 1.2 {ratio} 0.9-2.4 [facility] ALP [Catalytic activity/Vol] 52 U/L 45-117 [facility] ALT [Catalytic activity/Vol] 29 U/L 16-61 [facility] Cholesterol in HDL [Mass/Vol] 46 mg/dL >40 [facility] Comment on above: The drugs N-Acetylcy steine and Metamizole may falsely depress this assay. Reference Range HDL <40 mg/dL Low HDL Cholesterol HDL >or= 60 mg/dL High HDL Cholesterol Cholesterol in LDL [Mass/Vol] 64 mg/dL 0-130 [facility] CO2 [Moles/Vol] 26.0 mmol/L 21.0-32.0 [facility] Globulin (S) [Mass/Vol] 2.8 g/dL 2.2-4.2 [facility] Magnesium [Mass/Vol] 2.0 mg/dL 1.6-2.6 [facility] Urea nitrogen/Creatinine [Mass ratio] 19.5 mg/mg 10-20 [facility] Laboratory - Hematology and Cell countsOrdered By: Nora Rivera on 10-19-2023 MCH (RBC) [Entitic mass] 28.7 pg 27.0-32.0 [facility] MCHC (RBC) [Mass/Vol] 33.1 g/dL 32-36 [facility] Nucleated RBC/100 WBC (Bld) [Ratio] 0 % 0-5 [facility] Platelet mean volume (Bld) [Entitic vol] 9.3 fL 6.2-12.0 [facility] Platelets (Bld) [#/Vol] 252 10*3/uL 150-450 [facility] No Panel InformationOrdered By: Nora Rivera on 10-19-2023 Estimated Creatinine Clearance Calc 94.15 ml/min [facility] Estimated GFR (MDRD) Amer 114 mL/min >60 [facility] Comment on above: GFR Calc Estimated GFR (MDRD) Non-Af Amer 94 mL/min >60 [facility] Comment on above: Non- GFR Calc VLDL Cholesterol 12 mg/dL 5-40 [facility] RBC Auto (Bld) [#/Vol]Ordere d By: Nora Rivera on 10-19-2023 RBC (Bld) [#/Vol] 5.02 10*6/uL 4.6-6.2 [facility] Serum or plasma calcium alvin urement (mass/volume)Ordered By: Nora Rivera on 10-19-2023 Calcium [Mass/Vol] 8.5 mg/dL 8.5-10.1 [facility] Serum or plasma creatinine m easurement (mass/volume)Ordered By: Nora Rivera on 10-19-2023 Creatinine [Mass/Vol] 0.87 mg/dL 0.70-1.30 [facility] Comment on above: The validity of the calculated GFR & GFRAA in patients over 70 years has not been determined. Clinical correlation is essential. Serum or plasma thyroid stim ulating hormone (TSH) measurement (units/volume)Ordered By: Nora Rivera on 10-19-2023 TSH Qn 0.51 uIU/mL 0.358-3.74 [facility] Serum or plasma urea nitroge n measurement (mass/volume)Ordered By: Nora Rivera on 10-19-2023 Urea nitrogen [Mass/Vol] 17 mg/dL 7-18 [facility] Thin prep Papanicolaou smear with manual screeningOrdered By: Nora Rivera on 10-19-2023 Thin prep Papanicolaou smear with manual screening 3.3 g/dL 3.2-5.0 [facility] Thin prep Papanicolaou smear with manual screening 15 U/L 15-37 [facility] Thin prep Papanicolaou smear with manual screening 4 5-15 [facility] Absolute lymphocyte countOrd ered By: Mathew Gonzalez on 10-18-2023 Lymphocytes Auto (Unsp spec) [#/Vol] 1.38 10*3/uL 0.83-4.51 [facility] Activated partial thrombopla stin time (aPTT) in platelet poor plasma by coagulation aOrdered By: Mathew Gonzalez on 10-18-2023 aPTT Coag (PPP) [Time] 27.4 s 24.1-36.2 [facility] Automated lymphocyte count a s percentage of total leukocytesOrdered By: Mathew Gonzalez on 10-18-2023 Lymphocytes/100 WBC Auto (Unsp spec) 14.4 % 19-41 [facility] Basophil percentageOrdered B y: Mathewsteve Gonzalez on 10-18-2023 Basophils/100 WBC (Bld) 0.6 % 0-1 [facility] Chloride [Moles/Vol] 113 mmol/L 98-107 [facility] Eosinophils/100 WBC (Bld) 2.6 % 0-5 [facility] Glucose [Mass/Vol] 120 mg/dL 74-106 [facility] Comment on above: Fasting Glucose resu lt from 100 to 125 mg/dL suggests IMPAIRED HOMEOSTASIS per A.D.A. criteria. Hemoglobin (Bld) [Mass/Vol] 15.6 g/dL 13.0-16.5 [facility] Monocytes/100 WBC (Bld) 7.9 % 0-10 [facility] Neutrophils (Bld) [#/Vol] 7.1 10*3/uL 2.0-7.7 [facility] Neutrophils/100 WBC (Bld) 74.2 % 47-70 [facility] Potassium [Moles/Vol] 3.9 mmol/L 3.5-5.1 [facility] Sodium [Moles/Vol] 144 mmol/L 136-145 [facility] WBC (Bld) [#/Vol] 9.6 10*3/uL 4.4-11.0 [facility] Determination of erythrocyte mean corpuscular volume (MCV)Ordered By: Mathewsteve Gonzalez on 10-18-2023 MCV (RBC) [Entitic vol] 87.0 fL 80-94 [facility] Erythrocyte distribution wid th ratioOrdered By: Mathewsteve Gonzalez on 10-18-2023 Erythrocyte distribution width (RBC) [Ratio] 12.9 % 11.6-14.6 [facility] Erythrocyte distribution wid th standard deviationOrdered By: Mathewsteve Goznalez on 10-18-2023 Erythrocyte distribution width (RBC) [Entitic vol] 40.3 fL 35.1-43.9 [facility] Hematocrit Auto (Bld) [Volum e fraction]Ordered By: Mathewsteve Gonzalez on 10-18-2023 Hematocrit (Bld) [Volume fraction] 46.3 % 40-54 [facility] Immature granulocytes/100 WB C Auto (Bld)[facility] Immature granulocytes/100 WBC (Bld) 0.300 % 0.0-0.9 [facility] Comment on above: IG% - Immature Granu locytes (promyelocytes, myelocytes and metamyelocytes) > 1% indicates that a LEFT SHIFT is Present. Laboratory - Chemistry and C hemistry - challengeOrdered By: Mathew Gonzalez on 10-18-2023 CO2 [Moles/Vol] 27.0 mmol/L 21.0-32.0 [facility] Urea nitrogen/Creatinine [Mass ratio] 19.3 mg/mg 10-20 [facility] Laboratory - CoagulationOrde red By: Mathew Gonzalez on 10-18-2023 INR Coag (Bld) [Relative time] 1.1 {INR} [facility] PT Coag (PPP) [Time] 14.2 s 11.7-14.9 [facility] Laboratory - Hematology and Cell countsOrdered By: Mathew Gonzalez on 10-18-2023 MCH (RBC) [Entitic mass] 29.3 pg 27.0-32.0 [facility] MCHC (RBC) [Mass/Vol] 33.7 g/dL 32-36 [facility] Nucleated RBC/100 WBC (Bld) [Ratio] 0 % 0-5 [facility] Platelet mean volume (Bld) [Entitic vol] 9.8 fL 6.2-12.0 [facility] Platelets (Bld) [#/Vol] 283 10*3/uL 150-450 [facility] No Panel InformationOrdered By: Nora Rivera on 10-18-2023 Troponin I High Sensitivity 136 pg/mL 3.0-78.0 [facility] Comment on above: Critical Result(s) Ramírez blum at: 19:31:13 10/18/2023 by: MONIKA MILLER. Results read back by same. Please Note: New Test Units and Gender Specific Reference Ranges. For more information see Policy Stat Procedure [place] High Sensitivity Troponin (TNIH) and attachments. D-Dimer Quantitative (PE/DVT) 0.34 FEU/ug/m 0.27-0.49 [facility] Comment on above: NORMAL D-Dimer level (<0.50) indicates no DVT or PE. No Panel InformationOrdered By: Mathew Gonzalez on 10-18-2023 Estimated Creatinine Clearance Calc 83.58 ml/min [facility] Estimated GFR (MDRD) Amer 99 mL/min >60 [facility] Comment on above: GFR Calc Estimated GFR (MDRD) Non-Af Amer 82 mL/min >60 [facility] Comment on above: Non- GFR Calc Troponin I High Sensitivity 136 pg/mL 3.0-78.0 [facility] Comment on above: Critical Result(s) Ramírez blum EMmon at: 13:55:23 10/18/2023 by: CCrytzer. Results read back by same. Please Note: New Test Units and Gender Specific Reference Ranges. For more information see Policy Stat Procedure [place] High Sensitivity Troponin (TNIH) and attachments. RBC Auto (Bld) [#/Vol]Ordere d By: Mathew Gonzalez on 10-18-2023 RBC (Bld) [#/Vol] 5.32 10*6/uL 4.6-6.2 [facility] Serum or plasma calcium alvin urement (mass/volume)Ordered By: [facility] on 10-18-2023 Calcium [Mass/Vol] 8.8 mg/dL 8.5-10.1 [facility] Serum or plasma creatinine m easurement (mass/volume)Ordered By: Mathew Gonzalez on 10-18-2023 Creatinine [Mass/Vol] 0.98 mg/dL 0.70-1.30 [facility] Comment on above: The validity of the calculated GFR & GFRAA in patients over 70 years has not been determined. Clinical correlation is essential. Serum or plasma urea nitroge n measurement (mass/volume)Ordered By: Mathew Gonzalez on 10-18-2023 Urea nitrogen [Mass/Vol] 19 mg/dL 7-18 [facility] Thin prep Papanicolaou smear with manual screeningOrdered By: Mathew Gonzalez on 10-18-2023 Thin prep Papanicolaou smear with manual screening 4 5-15 [facility] Whole blood hemoglobin A1c/t otal hemoglobin ratio (mass fraction)Ordered By: Nora Rivera on 10-18-2023 HbA1c (Bld) [Mass fraction] 5.5 % 3.8-5.6 [facility] Comment on above: Normal < 5.7 % Predi abetic 5.7 - 6.4 % Diabetic >or= 6.5 % Please note range changes. Absolute lymphocyte countOrd ered By: Chilango Welsh on 10-17-2023 Lymphocytes Auto (Unsp spec) [#/Vol] 1.97 10*3/uL 0.83-4.51 [facility] Automated lymphocyte count a s percentage of total leukocytesOrdered By: Chilango Welsh on 10-17-2023 Lymphocytes/100 WBC Auto (Unsp spec) 21.7 % 19-41 [facility] Basophil percentageOrdered B y: Chilango Welsh on 10-17-2023 Basophils/100 WBC (Bld) 0.4 % 0-1 [facility] Bilirubin [Mass/Vol] 0.70 mg/dL 0.20-1.00 [facility] Comment on above: For patients on eltr ombopag therapy, use of Dimension [place] TBIL is not recommended. Chloride [Moles/Vol] 105 mmol/L 98-107 [facility] Cholesterol [Mass/Vol] 142 mg/dL <200 [facility] Comment on above: <200 mg/dL Desirable 200-240 mg/dL Borderline >240 mg/dL High Risk Eosinophils/100 WBC (Bld) 2.4 % 0-5 [facility] Glucose [Mass/Vol] 97 mg/dL 74-106 [facility] Hemoglobin (Bld) [Mass/Vol] 15.2 g/dL 13.0-16.5 [facility] Monocytes/100 WBC (Bld) 9.6 % 0-10 [facility] Neutrophils (Bld) [#/Vol] 5.9 10*3/uL 2.0-7.7 [facility] Neutrophils/100 WBC (Bld) 65.6 % 47-70 [facility] Potassium [Moles/Vol] 4.1 mmol/L 3.5-5.1 [facility] Protein [Mass/Vol] 6.9 g/dL 6.4-8.2 [facility] Sodium [Moles/Vol] 138 mmol/L 136-145 [facility] Triglyceride [Mass/Vol] 34 mg/dL <199 [facility] Comment on above: The drugs N-Acetylcy steine and Metamizole may falsely depress this assay.Serum Triglycerides Reference Interval Normal <150 mg/dL Borderline high 150 - 199 mg/dL High 200 - 499 mg/dL Very High > or = 500 mg/dL WBC (Bld) [#/Vol] 9.1 10*3/uL 4.4-11.0 [facility] Determination of erythrocyte mean corpuscular volume (MCV)Ordered By: Chilango Welsh on 10-17-2023 MCV (RBC) [Entitic vol] 87.9 fL 80-94 [facility] Erythrocyte distribution wid th ratioOrdered By: Chilango Welsh on 10-17-2023 Erythrocyte distribution width (RBC) [Ratio] 12.9 % 11.6-14.6 [facility] Erythrocyte distribution wid th standard deviationOrdered By: Chilango Welsh on 10-17-2023 Erythrocyte distribution width (RBC) [Entitic vol] 41.7 fL 35.1-43.9 [facility] Hematocrit Auto (Bld) [Volum e fraction]Ordered By: Chilango Welsh on 10-17-2023 Hematocrit (Bld) [Volume fraction] 46.4 % 40-54 [facility] Immature granulocytes/100 WB C Auto (Bld)Ordered By: Chilango Welsh on 10-17-2023 Immature granulocytes/100 WBC (Bld) 0.300 % 0.0-0.9 [facility] Comment on above: IG% - Immature Granu locytes (promyelocytes, myelocytes and metamyelocytes) > 1% indicates that a LEFT SHIFT is Present. Laboratory - Chemistry and C hemistry - challengeOrdered By: Chilango Welsh on 10-17-2023 Albumin/Globulin [Mass ratio] 1.2 {ratio} 0.9-2.4 [facility] ALP [Catalytic activity/Vol] 56 U/L 45-117 [facility] ALT [Catalytic activity/Vol] 30 U/L 16-61 [facility] Cholesterol in HDL [Mass/Vol] 47 mg/dL >40 [facility] Comment on above: The drugs N-Acetylcy steine and Metamizole may falsely depress this assay. Reference Range HDL <40 mg/dL Low HDL Cholesterol HDL >or= 60 mg/dL High HDL Cholesterol Cholesterol in LDL [Mass/Vol] 88 mg/dL 0-130 [facility] CO2 [Moles/Vol] 26.0 mmol/L 21.0-32.0 [facility] Globulin (S) [Mass/Vol] 3.1 g/dL 2.2-4.2 [facility] Urea nitrogen/Creatinine [Mass ratio] 22.5 mg/mg 10-20 [facility] Laboratory - Hematology and Cell countsOrdered By: Chilango Welsh on 10-17-2023 MCH (RBC) [Entitic mass] 28.8 pg 27.0-32.0 [facility] MCHC (RBC) [Mass/Vol] 32.8 g/dL 32-36 [facility] Nucleated RBC/100 WBC (Bld) [Ratio] 0 % 0-5 [facility] Platelet mean volume (Bld) [Entitic vol] 10.4 fL 6.2-12.0 [facility] Platelets (Bld) [#/Vol] 286 10*3/uL 150-450 [facility] No Panel InformationOrdered By: Chilango Welsh on 10-17-2023 Estimated GFR (MDRD) Amer 95 mL/min >60 [facility] Comment on above: GFR Calc Estimated GFR (MDRD) Non-Af Amer 78 mL/min >60 [facility] Comment on above: Non- GFR Calc VLDL Cholesterol 7 mg/dL 5-40 [facility] RBC Auto (Bld) [#/Vol]Ordere d By: Chilango Welsh on 10-17-2023 RBC (Bld) [#/Vol] 5.28 10*6/uL 4.6-6.2 [facility] Serum or plasma calcium alvin urement (mass/volume)Ordered By: Chilango Welsh on 10-17-2023 Calcium [Mass/Vol] 9.0 mg/dL 8.5-10.1 [facility] Serum or plasma creatinine m easurement (mass/volume)Ordered By: Chilango Welsh on 10-17-2023 Creatinine [Mass/Vol] 1.02 mg/dL 0.70-1.30 [facility] Comment on above: The validity of the calculated GFR & GFRAA in patients over 70 years has not been determined. Clinical correlation is essential. Serum or plasma urea nitroge n measurement (mass/volume)Ordered By: Chilango Welsh on 10-17-2023 Urea nitrogen [Mass/Vol] 23 mg/dL 7-18 [facility] Thin prep Papanicolaou smear with manual screeningOrdered By: Chilango Welsh on 10-17-2023 Thin prep Papanicolaou smear with manual screening 3.8 g/dL 3.2-5.0 [facility] Thin prep Papanicolaou smear with manual screening 23 U/L 15-37 [facility] Thin prep Papanicolaou smear with manual screening 7 5-15 [facility] LG Jt Injection/Arthrocentes is: Danay arguelles 09-26-2023 Asaf Torres MD 09/26/2023 8:55 PM LG Jt Injection/Arthrocentesi s: L knee Performed by: Asaf Torres MD Authorized by: Asaf Torres MD CPT 97487 - Large Joint Arthrocentesis: Consent given by: Patient Supporting Documentation: Indications: Pain Procedure Details: Location: Knee Site: L knee Needle size: 20 G Approach: Lateral Medications: 40 mg triamcinolone acetonide 40 mg/mL Anesthetic used: Lidocaine 1% Anesthetic amount (mL): 1 Patient tolerance: Patient tolerated the procedure well with no immediate complications [facility] LG Jt Injection/Arthrocentes is: R kindra 09-26-2023 Asaf Torres MD 09/26/2023 8:55 PM LG Jt Injection/Arthrocentesi s: R knee Performed by: Asaf Torres MD Authorized by: Asaf Torres MD CPT 61197 - Large Joint Arthrocentesis: Consent given by: Patient Supporting Documentation: Indications: Pain Procedure Details: Location: Knee Site: R knee Needle size: 20 G Approach: Lateral Medications: 40 mg triamcinolone acetonide 40 mg/mL Anesthetic used: Lidocaine 1% Anesthetic amount (mL): 1 Patient tolerance: Patient tolerated the procedure well with no immediate complications [facility] Absolute lymphocyte countOrd ered By: Chilango Welsh on 08-07-2023 Lymphocytes Auto (Unsp spec) [#/Vol] 1.86 10*3/uL 0.83-4.51 [facility] Basophil percentageOrdered B y: Chilango Welsh on 08-07-2023 Basophils/100 WBC (Bld) 0.9 % 0-1 [facility] Bilirubin [Mass/Vol] 0.50 mg/dL 0.20-1.00 [facility] Comment on above: For patients on eltr ombopag therapy, use of Dimension [place] TBIL is not recommended. Chloride [Moles/Vol] 108 mmol/L 98-107 [facility] Cholesterol [Mass/Vol] 154 mg/dL <200 [facility] Comment on above: <200 mg/dL Desirable 200-240 mg/dL Borderline >240 mg/dL High Risk Eosinophils/100 WBC (Bld) 3.8 % 0-5 [facility] Glucose [Mass/Vol] 94 mg/dL 74-106 [facility] Neutrophils (Bld) [#/Vol] 4.8 10*3/uL 2.0-7.7 [facility] Neutrophils/100 WBC (Bld) 62.7 % 47-70 [facility] Potassium [Moles/Vol] 3.9 mmol/L 3.5-5.1 [facility] Protein [Mass/Vol] 6.7 g/dL 6.4-8.2 [facility] Sodium [Moles/Vol] 140 mmol/L 136-145 [facility] Triglyceride [Mass/Vol] 89 mg/dL <199 [facility] Comment on above: The drugs N-Acetylcy steine and Metamizole may falsely depress this assay.Serum Triglycerides Reference Interval Normal <150 mg/dL Borderline high 150 - 199 mg/dL High 200 - 499 mg/dL Very High > or = 500 mg/dL WBC (Bld) [#/Vol] 7.7 10*3/uL 4.4-11.0 [facility] Blood erythrocytes count (nu mber/volume)Ordered By: Chilango Welsh on 08-07-2023 RBC (Bld) [#/Vol] 4.97 10*6/uL 4.6-6.2 [facility] Blood hemoglobin measurement (mass/volume)Ordered By: Chilango Welsh on 08-07-2023 Hemoglobin (Bld) [Mass/Vol] 14.2 g/dL 13.0-16.5 [facility] Blood lymphocytes/100 leukoc ytesOrdered By: Chilango Welsh on 08-07-2023 Lymphocytes/100 WBC (Bld) 24.1 % 19-41 [facility] Blood monocytes/100 leukocyt esOrdered By: Chilango Welsh on 08-07-2023 Monocytes/100 WBC (Bld) 7.9 % 0-10 [facility] Blood platelet mean volumeOr dered By: Chilango Welsh on 08-07-2023 Platelet mean volume (Bld) [Entitic vol] 9.7 fL 6.2-12.0 [facility] Determination of erythrocyte mean corpuscular volume (MCV)Ordered By: Chilango Welsh on 08-07-2023 MCV (RBC) [Entitic vol] 88.5 fL 80-94 [facility] Hematocrit Auto (Bld) [Volum e fraction]Ordered By: Chilango Welsh on 08-07-2023 Hematocrit (Bld) [Volume fraction] 44.0 % 40-54 [facility] Laboratory - Chemistry and C hemistry - challengeOrdered By: Chilango Welsh on 08-07-2023 ALP [Catalytic activity/Vol] 62 U/L 45-117 [facility] ALT [Catalytic activity/Vol] 27 U/L 16-61 [facility] CO2 [Moles/Vol] 29.0 mmol/L 21.0-32.0 [facility] Globulin (S) [Mass/Vol] 3.3 g/dL 2.2-4.2 [facility] Urea nitrogen/Creatinine [Mass ratio] 15.0 mg/mg 10-20 [facility] Laboratory - Hematology and Cell countsOrdered By: Chilango Welsh on 08-07-2023 Erythrocyte distribution width (RBC) [Entitic vol] 40.1 fL 35.1-43.9 [facility] Erythrocyte distribution width (RBC) [Ratio] 12.5 % 11.6-14.6 [facility] Immature granulocytes/100 WBC (Bld) 0.600 % 0.0-0.9 [facility] Comment on above: IG% - Immature Granu locytes (promyelocytes, myelocytes and metamyelocytes) > 1% indicates that a LEFT SHIFT is Present. MCH (RBC) [Entitic mass] 28.6 pg 27.0-32.0 [facility] Nucleated RBC/100 WBC (Bld) [Ratio] 0 % 0-5 [facility] MCHC Auto (RBC) [Mass/Vol]Or dered By: Chilango Welsh on 08-07-2023 MCHC (RBC) [Mass/Vol] 32.3 g/dL 32-36 [facility] No Panel InformationOrdered By: Chilango Welsh on 08-07-2023 Estimated GFR (MDRD) Amer 105 mL/min >60 [facility] Comment on above: GFR Calc Estimated GFR (MDRD) Non-Af Amer 87 mL/min >60 [facility] Comment on above: Non- GFR Calc Prostate Specific Antigen Screen 0.99 ng/mL 0.00-4.00 [facility] Comment on above: This test was perfor med using the TPSA assay method for the[facility] chemistry system. Values obtained with differentassay methods cannot be used interchangably.When changing PSA assays in the course of monitoring apatient, additional sequential testing should be carriedout to confirm baseline values. Platelets bldOrdered By: Dl Welsh on 08-07-2023 Platelets (Bld) [#/Vol] 346 10*3/uL 150-450 [facility] Serum or plasma albumin alvin urement (mass/volume)Ordered By: Chilango Welsh on 08-07-2023 Albumin [Mass/Vol] 3.4 g/dL 3.2-5.0 [facility] Serum or plasma albumin/glob ulin mass ratioOrdered By: Chilango Welsh on 08-07-2023 Albumin/Globulin [Mass ratio] 1.0 {ratio} 0.9-2.4 [facility] Serum or plasma calcium alvin urement (mass/volume)Ordered By: Chilango Welsh on 08-07-2023 Calcium [Mass/Vol] 8.2 mg/dL 8.5-10.1 [facility] Serum or plasma cholesterol in HDL measurement (mass/volume)Ordered By: Chilango Welsh on 08-07-2023 Cholesterol in HDL [Mass/Vol] 45 mg/dL >40 [facility] Comment on above: The drugs N-Acetylcy steine and Metamizole may falsely depress this assay. Reference Range HDL <40 mg/dL Low HDL Cholesterol HDL >or= 60 mg/dL High HDL Cholesterol Serum or plasma cholesterol in VLDL measurement (mass/volume)Ordered By: Chilango Welsh on 08-07-2023 Cholesterol in VLDL [Mass/Vol] 18 mg/dL 5-40 [facility] Serum or plasma creatinine m easurement (mass/volume)Ordered By: Chilango Welsh on 08-07-2023 Creatinine [Mass/Vol] 0.93 mg/dL 0.70-1.30 [facility] Comment on above: The validity of the calculated GFR & GFRAA in patients over 70 years has not been determined. Clinical correlation is essential. Serum or plasma low density lipoprotein (LDL) cholesterol measurement (mass/volume)Ordered By: Chilango Welsh on 08-07-2023 Cholesterol in LDL [Mass/Vol] 91 mg/dL 0-130 [facility] Serum or plasma urea nitroge n measurement (mass/volume)Ordered By: Chilango Welsh on 08-07-2023 Urea nitrogen [Mass/Vol] 14 mg/dL 7-18 [facility] Thin prep Papanicolaou smear with manual screeningOrdered By: Chilango Welsh on 08-07-2023 Thin prep Papanicolaou smear with manual screening 18 U/L 15-37 [facility] Thin prep Papanicolaou smear with manual screening 3 5-15 [facility] LG Jt Injection/Arthrocentes is: L kneeon 10-18-2022 Asaf Torres MD 10/18/2022 3:59 PM LG Jt Injection/Arthrocentesi s: L knee Performed by: Asaf Torres MD Authorized by: Asaf Torres MD CPT 41135 - Large Joint Arthrocentesis: Consent given by: Patient Supporting Documentation: Indications: Pain Procedure Details: Location: Knee Site: L knee Needle size: 20 G Approach: Lateral Medications: 40 mg triamcinolone acetonide 40 mg/mL Anesthetic used: Bupivacaine 0.5% Anesthetic amount (mL): 1 Patient tolerance: Patient tolerated the procedure well with no immediate complications [facility] Absolute lymphocyte countOrd ered By: Dr. Welsh on 08-02-2022 Lymphocytes Auto (Unsp spec) [#/Vol] 1.83 10*3/uL 0.83-4.51 [facility] Basophil percentageOrdered B y: Dr. Welsh on 08-02-2022 Basophils/100 WBC (Bld) 0.7 % 0-1 [facility] Bilirubin [Mass/Vol] 0.80 mg/dL 0.20-1.00 [facility] Comment on above: For patients on eltr ombopag therapy, use of Dimension [place] TBIL is not recommended. Chloride [Moles/Vol] 104 mmol/L 98-107 [facility] Cholesterol [Mass/Vol] 168 mg/dL <200 [facility] Comment on above: <200 mg/dL Desirable 200-240 mg/dL Borderline >240 mg/dL High Risk Eosinophils/100 WBC (Bld) 3.4 % 0-5 [facility] Glucose [Mass/Vol] 88 mg/dL 74-106 [facility] Neutrophils (Bld) [#/Vol] 4.0 10*3/uL 2.0-7.7 [facility] Neutrophils/100 WBC (Bld) 57.8 % 47-70 [facility] Potassium [Moles/Vol] 4.1 mmol/L 3.5-5.1 [facility] Protein [Mass/Vol] 7.1 g/dL 6.4-8.2 [facility] Sodium [Moles/Vol] 140 mmol/L 136-145 [facility] Triglyceride [Mass/Vol] 56 mg/dL <199 [facility] Comment on above: The drugs N-Acetylcy steine and Metamizole may falsely depress this assay.Serum Triglycerides Reference Interval Normal <150 mg/dL Borderline high 150 - 199 mg/dL High 200 - 499 mg/dL Very High > or = 500 mg/dL WBC (Bld) [#/Vol] 6.8 10*3/uL 4.4-11.0 [facility] Blood erythrocytes count (nu mber/volume)Ordered By: Dr. Welsh on 08-02-2022 RBC (Bld) [#/Vol] 5.14 10*6/uL 4.6-6.2 [facility] Blood hemoglobin measurement (mass/volume)Ordered By: Dr. Welsh on 08-02-2022 Hemoglobin (Bld) [Mass/Vol] 15.3 g/dL 13.0-16.5 [facility] Blood lymphocytes/100 leukoc ytesOrdered By: Dr. Welsh on 08-02-2022 Lymphocytes/100 WBC (Bld) 26.8 % 19-41 [facility] Blood monocytes/100 leukocyt esOrdered By: Dr. Welsh on 08-02-2022 Monocytes/100 WBC (Bld) 11.0 % 0-10 [facility] Blood platelet mean volumeOr dered By: Dr. Welsh on 08-02-2022 Platelet mean volume (Bld) [Entitic vol] 9.8 fL 6.2-12.0 [facility] Determination of erythrocyte mean corpuscular volume (MCV)Ordered By: Dr. Welsh on 08-02-2022 MCV (RBC) [Entitic vol] 87.4 fL 80-94 [facility] Hematocrit Auto (Bld) [Volum e fraction]Ordered By: Dr. Welsh on 08-02-2022 Hematocrit (Bld) [Volume fraction] 44.9 % 40-54 [facility] Laboratory - Chemistry and C hemistry - challengeOrdered By: Dr. Welsh on 08-02-2022 ALP [Catalytic activity/Vol] 66 U/L 45-117 [facility] ALT [Catalytic activity/Vol] 29 U/L 16-61 [facility] CO2 [Moles/Vol] 29.0 mmol/L 21.0-32.0 [facility] Globulin (S) [Mass/Vol] 3.2 g/dL 2.2-4.2 [facility] Urea nitrogen/Creatinine [Mass ratio] 17.9 mg/mg 10-20 [facility] Laboratory - Hematology and Cell countsOrdered By: Dr. Welsh on 08-02-2022 Erythrocyte distribution width (RBC) [Entitic vol] 40.4 fL 35.1-43.9 [facility] Erythrocyte distribution width (RBC) [Ratio] 12.8 % 11.6-14.6 [facility] Immature granulocytes/100 WBC (Bld) 0.300 % 0.0-0.9 [facility] Comment on above: IG% - Immature Granu locytes (promyelocytes, myelocytes and metamyelocytes) > 1% indicates that a LEFT SHIFT is Present. MCH (RBC) [Entitic mass] 29.8 pg 27.0-32.0 [facility] Nucleated RBC/100 WBC (Bld) [Ratio] 0 % 0-5 [facility] MCHC Auto (RBC) [Mass/Vol]Or dered By: Dr. Welsh on 08-02-2022 MCHC (RBC) [Mass/Vol] 34.1 g/dL 32-36 [facility] No Panel InformationOrdered By: Dr. Welsh on 08-02-2022 Estimated GFR (MDRD) Amer 103 mL/min >60 [facility] Comment on above: GFR Calc Estimated GFR (MDRD) Non-Af Amer 85 mL/min >60 [facility] Comment on above: Non- GFR Calc Prostate Specific Antigen Screen 0.76 ng/mL 0.00-4.00 [facility] Comment on above: This test was perfor med using the TPSA assay method for the[employer] chemistry system. Values obtained with differentassay methods cannot be used interchangably.When changing PSA assays in the course of monitoring apatient, additional sequential testing should be carriedout to confirm baseline values. Thyroid Stimulating Hormone (TSH) 1.02 uIU/mL 0.358-3.74 [facility] Platelets bldOrdered By: Dr. Welsh on 08-02-2022 Platelets (Bld) [#/Vol] 305 10*3/uL 150-450 [facility] Serum or plasma albumin alvin urement (mass/volume)Ordered By: Dr. Welsh on 08-02-2022 Albumin [Mass/Vol] 3.9 g/dL 3.2-5.0 [facility] Serum or plasma albumin/glob ulin mass ratioOrdered By: Dr. Welsh on 08-02-2022 Albumin/Globulin [Mass ratio] 1.2 {ratio} 0.9-2.4 [facility] Serum or plasma calcium alvin urement (mass/volume)Ordered By: Dr. Welsh on 08-02-2022 Calcium [Mass/Vol] 9.1 mg/dL 8.5-10.1 [facility] Serum or plasma cholesterol in HDL measurement (mass/volume)Ordered By: Dr. Welsh on 08-02-2022 Cholesterol in HDL [Mass/Vol] 51 mg/dL >40 [facility] Comment on above: The drugs N-Acetylcy steine and Metamizole may falsely depress this assay. Reference Range HDL <40 mg/dL Low HDL Cholesterol HDL >or= 60 mg/dL High HDL Cholesterol Serum or plasma cholesterol in VLDL measurement (mass/volume)Ordered By: Dr. Welsh on 08-02-2022 Cholesterol in VLDL [Mass/Vol] 11 mg/dL 5-40 [facility] Serum or plasma creatinine m easurement (mass/volume)Ordered By: Dr. Welsh on 08-02-2022 Creatinine [Mass/Vol] 0.95 mg/dL 0.70-1.30 [facility] Comment on above: The validity of the calculated GFR & GFRAA in patients over 70 years has not been determined. Clinical correlation is essential. Serum or plasma low density lipoprotein (LDL) cholesterol measurement (mass/volume)Ordered By: Dr. Welsh on 08-02-2022 Cholesterol in LDL [Mass/Vol] 106 mg/dL 0-130 [facility] Serum or plasma urea nitroge n measurement (mass/volume)Ordered By: Dr. Welsh on 08-02-2022 Urea nitrogen [Mass/Vol] 17 mg/dL 7-18 [facility] Thin prep Papanicolaou smear with manual screeningOrdered By: Dr. Welsh on 08-02-2022 Thin prep Papanicolaou smear with manual screening 25 U/L 15-37 [facility] Thin prep Papanicolaou smear with manual screening 7 5-15 [facility] Interpretation of Borrelia b urgdorferi antibody assayon 04-12-2022 B. burgdorferi Ab (S) [Interp] REF LAB [facility] Work Phone: Thin prep Papanicolaou smear with manual screeningon 04-12-2022 Thin prep Papanicolaou smear with manual screening See comment [facility] Work Phone: Comment on above: TEST RESULT LIMITSLy me Disease Serology w/ReflexLyme Total Antibody TETE Positive NegativeLyme IgG TETE Positive NegativeLyme IgM TETE Positive NegativeLyme Interpretation Abnormal Lyme IgM/IgG Abs DetectedResults are consistent with B. burgdorferi infection (Lyme disease) in the recent or remote past. IgG-class antibodies may remain detectable for months to years following resolution of infection.Results should not be used to monitor or establish adequate response to therapy. Response to therapy is confirmed through resolution of clinical symptoms; additional laboratory testing should not be performed. If both tests are equivocal consider repeat testing in 7 to 14 days if clinically warranted. TESTING PERFORMED AT [facility]. ORIGINAL REPORT ON FILE IN LAB CONTAINS ADDITIONAL TEST SITE INFORMATION. Provider Note - ED v3on 02-02 Provider Note - ED v3 Provider Note: Chart Review: HISTORY OF PRESENTING ILLNESS AFSANEH is a 61 year old Male and was seen by me at 25-Feb-2022 09:51. The historian is the patient. Triage Information: Most recent Vital Sign Value Date PAST MEDICAL HISTORY ALLERGIES/INTOLERANCES: No Known Allergies HEALTH HISTORY: No known health issues. Family history: no pertinent history. Social history: non-smoker. Currently employed. Has 2 sons. Enjoys golf and baseball/softball. OUTPATIENT MEDICATIONS: Home Medications Review Status for Reconciliation: Complete Med Status: Patient Currently Takes Medications Drug Name: benzonatate 100 mg oral capsule Instructions: 1 cap(s) orally 3 times a day, As Needed -for cough Drug Name: azithromycin 250 mg oral tablet Instructions: 2 tab(s) orally once a day on day 1, then 1 tablet orally on days 2-5 SIGNIFICANT EVENTS: History of L shoulder rotator cuff repair; no other known significant events or other known/pertinent past surgical history. CRITICAL CARE VITAL SIGNS: T PRBP SpO2O2(LPM) %FiO2 Method 25-Feb-2022 09:34:[id number] [facility] MDM/ED COURSE: This note was generated with voice recognition software and may contain errors including spelling, grammar, syntax, and misrecognization of what was dictated CHIEF COMPLAINT rash HISTORY OF PRESENT ILLNESS Patient presents today for re-evaluation of recent rash. States he first noticed a red spot that he believed to be a spider bite on his R upper thigh on 02/08/22. He did not see an insect at any point, but reports he works outside a lot. At that time, he also had flu-like symptoms (poor appetite, diarrhea, fatigue, fevers, joint/muscle aches, etc). He was seen by another provider - dx'd with viral gastroenteritis - tested negative for COVID and flu. A few days later, he went to a different Urgent Care and treated with Keflex d/t the spider bite not improving - the circular area on his thigh was ever warm, tender, or raised, but was itchy and red, and was bigger than a softball. Soon afterwards, he developed additional large, oblong areas (bigger than 2 softballs) of non-tender but mildly itchy redness (not raised) on his R leg, a little closer to his knee, and also on his L arm; reports he may also have had a similar rash to his R upper arm, but did not look - just noticed the mild itchiness. On 02/21/22, he was seen here by a 3rd provider d/t a cough and the resolving insect bite - was treated with a Zpac and Tessalon pearles. The cough and other symptoms have nearly resolved, and all areas of the rash are gone, but he became concerned last night, as a friend mentioned his recent symptoms and rash sounded a lot like Lyme disease. He denies any drainage or swelling from the recent rash. Last fever/body aches/headaches were >1 week ago. He denies any residual fever, chills, headaches, myalgias, joint pain, n/v, streaking or drainage at or near the site, fatigue, malaise, trouble breathing, or other systemic symptoms. He also denies any CP/shortness of breath, palpitations, dizziness/lightheadedne ss, residual neck pain, facial drooping, or other neurologic symptoms. Follows regularly with his PCP but reports he was unable to get an appt until ~1 month from now, so came back to Urgent Care today to be sure he doesn't need treatment for Lyme Disease. REVIEW OF SYSTEMS 10 systems reviewed negative with exception of history of present illness listed above PHYSICAL EXAMINATION General: Pleasant male, alert and oriented, in no acute distress. Eyes: Eyes non-icteric; conjunctiva clear. PERRL. HENT: Normocephalic. TMs with cloudy fluid effusions bilat, but no erythema, and not retracted or bulging; posterior pharynx unremarkable. Managing oral secretions without difficulty. Neck: Supple; no palpable lymphadenopathy Respiratory: Lungs are clear to auscultation, Respirations are non-labored, Breath sounds are equal, Symmetrical chest wall expansion. Very mild, non-productive cough noted only upon request. Cardiovascular: Normal rate, Regular rhythm. Normal S1S2. No m/r/g. Musculoskeletal: Ambulates and moves all extremities easily and without discomfort. No lymphadenopathy. Integumentary: Boomer, warm, dry. No other rash or skin lesions noted on body. Patient describing recent non-raised, large (bigger than 1 or two softballs), non-tender, circular or oblong areas of erythema (reports had 2 on his R upper leg/thigh) - no residual rashes or skin discoloration noted, but does have (~2x2 mm) circular area of dry, very superficial peeling skin noted at the center of where patient describes recent insect bite on his R thigh. Neurologic: Alert, Oriented, Normal sensory, Normal motor function. 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 Cognition and Speech: Oriented, Speech clear and coherent. Psychiatric: Cooperative, Appropriate mood & a (more content not included)... Normal [facility] Provider Note - ED v3on 06-2 1-2022 Provider Note - ED v3 Provider Note: Chart Review: HISTORY OF PRESENTING ILLNESS AFSANEH is a 61 year old Male and was seen by me at 21-Feb-2022 10:09. Triage Information: Most recent Vital Sign Value Date PAST MEDICAL HISTORY CURRENT OR FORMER SUBSTANCE USE: Tobacco/Nicotine Use: never smoker Alcohol Use: denies ALLERGIES/INTOLERANCES: No Known Allergies HEALTH HISTORY: No documented data. OUTPATIENT MEDICATIONS: Home Medications Review Status for Reconciliation: N/A Med Status: No Current Medications SIGNIFICANT EVENTS: No documented data. CRITICAL CARE VITAL SIGNS: BP 136/67 SPO2- 95% Pulse 76 Temperature 98.0 MDM MDM/ED COURSE: This note was dictated using Dragon Dictation there may be errors in spelling, grammar, formatting, and misrecognization of what was dictated. Chief Complaint: ``Cough, and resolving spider bite HPI: Historian Patient States that symptoms started 6 days ago for his cough. Complains of see ROS. Denies see JENNIFER Has tried taking denies. He was seen on Sunday at another Urgent care for a spider bite he took an antibiotic he believes was Keflex, the bite its self is better, he had some red itchy skin on his arm, that has resolved. Review of Systems (+)=Complains of (-)= Denies General: : (-)Weakness, (+)Fatigue,(-)Headache and (+ x1 day unsure of Max)Fever (-) Chills Mouth/Throat: (-) Sore Throat, (- )Hoarseness, (-)Post nasal drip Eyes:(-) Eye pain,,( -)redness (-) discharge Nose/Sinuses:(-) Nasal Stuffiness, , (-)Discharge, (-)Sinus Pressure. Ears: (+) Pain, (+) Fullness (-)Discharge, Skin:( +is resolving )rash Pulmonary: (+) Cough(,some waht productive), (-) Dyspnea, (-)Wheezing. Cardiac: (-) Chest pain, (+) Chest Congestion, (-)Edema. Gastrointestinal: (-) Nausea,(-) Vomiting,( -)Diarrhea( -)Abdominal Pain. Psychological: (-) Anxiety, (-) Depression, (-) Thoughts or plan of self-harm. PHYSICAL EXAM Patient in seated position. Appearance mildly ill well groomed, alert and orientated, no acute distress, speech clear, and evenly paced, good historian, cooperative. Head: Normocephalic Neuro: No focal neurologic deficits. Age-appropriate, interactive, and nontoxic in appearance. Ear: External pinna skin intact with no mases, lesions, or discharge. No tenderness with manipulation of tragus and pinna. No tenderness, erythema, or swelling over mastoid. Otoscopic: Landmarks external canals clear with no redness swelling, lesions, discharge. TM bilaterally pearly michelle with light reflex and landmarks intact, no perforation. Eye: Light reflex: symmetrical bilaterally Inspection: Brows and lashes present no ptosis, conjunctiva clear, sclera white, cornea smooth and clear no lesions. Nose: Nose symmetric, no deformity, or lesions, nares patent, mucosa pink,, lesions, polyps, no septal deviation or perforation. [No] Audible nasal congestion noted Scant clear discharge noted. Sinus : [No] tenderness to ethmoid, and maxillary sinus upon palpation, [No] transillumination diffuse red glow noted. Mouth: Throat mucosa [pink ], no lesions, no exudate. no post nasal drip is noted. Uvula midline rises on phonation. + gag reflex. Lips moist and pink. Teeth intact and well maintained no missing or chipped teeth. No foul-smelling odor from breath. Soft and hard palpate intact. Tongue surface smooth, shiny with veins. Neck: no tender high anterior/posterior cervical lymphadenopathy Skin: Inspection: Site to right thigh where spider bite was no redness Color: appropriate for ethnicity Moisture: dry to touch throughout Temperature: warm bilaterally Tenderness: no tenderness noted Texture: smooth, Edema: none noted Cardiac: Regular rate, rhythm S1 S2. No murmur rubs or gallops. Lungs: Inspection +symmetric expansion, Patient sitting , respirations full, easy, and unlabored, skin color appropriate for ethnicity, pink, no cyanosis, or lesions noted. Auscultation Lungs clear and equal bilaterally. No stridor. No wheezes, rales or rhonchi. Tracheal/bronchial- loud high pitch. Bronchovesicular moderate pitch. Diagnostic: None Today Plan/Impression: Symptoms consistent with acute URI, but reviewed other potential etiologies RX: Jacques Preston. No antibiotics indicated at this point, but per pt's request, rx for watch and wait' Z-Lazarus provided, with instructions to begin only if sxs not improving over the next 4 days. Instructed to push fluids, rest, and to use appropriate over the counter medications as needed for management of symptoms -daily allergy pill, saline nasal spray, Flonase, mucinex may be helpful. Reviewed red flags, counseled on potential adverse reactions of treatments, expectations for improvement in sxs, and advised to follow-up with primary care provider in 3-5 days , or report to ER sooner if worsening or if any additional (more content not included)... Normal [facility] Covid 19 Resultson 2 SARS-CoV-2 (COVID-19) RNA MANUELITO+probe Ql (Unsp spec) NEGATIVE COVID-19 Test Coronaviruses are common world-wide and are the cause of many common colds. SARS-COV2 is a new coronavirus that began circulating worldwide in 2019 so we are calling it COVID-19. It has been estimated that four out of five patients with COVID-19 will recover at home without the need for medical attention. Symptoms of COVID-19 may include cough, fever, shortness of breath, loss of taste or smell and other flu-like symptoms including chills, sore muscles, sore throat, and headache. Severe illness is more common in older people and people with other health problems such as high blood pressure, obesity, and immune system problems. If the test is positive, you have COVID-19. You will be contacted by the ordering physicians office and instructed to remain on home isolation, in accordance with CDC guidelines. You may also be contacted by the [facility] to see if any of your close contacts may have been exposed to the virus and need to quarantine. If the test is negative, you likely do not have COVID-19 at this time, but you still may have a different illness that can spread to other people (like Influenza, or the Flu) and could still be at risk for getting COVID-19. We recommend that you stay away from other people to limit the spread of illness until your symptoms are improving and you are fever-free for 24 hours without the use of fever lowering medications such as acetaminophen or ibuprofen. No test is 100% accurate so if you are still concerned you may have COVID-19, talk to your doctor about the need to continue to stay away from others. Medicines Unless your provider told you not to use the following: Acetaminophen (Tylenol and others) is generally safe. Anti-inflammatory medications, such as Ibuprofen (Advil or Motrin) or Naproxen (Aleve) can also be used. Zwss-gja-ekoyupp cough and cold medicines can be used according to the instructions on the package. Some jwmm-phb-gjugeho medicines also contain acetaminophen. Make sure you are not taking more than your recommended dose. For those not hospitalized, there is no specific treatment available for this illness. Antibiotics do not treat Coronaviruses. Follow-Up Follow up with your doctor by scheduling a virtual visit or consider follow-up at one of our urgent care fever clinics. If you are having difficulty breathing, or are very weak and having difficulty standing, this is a medical emergency. Call 911 or have someone take you to the nearest emergency room immediately. If possible, wear a facemask. Additional guidance from the CDC for patients who tested POSITIVE for COVID-19 How to isolate: Isolate yourself in a specific room at home and limit your contact with others. Use a separate bathroom from other members of the household, when possible. Leave home only to get essential medical care. Do not go to work, school or public areas. Avoid using public transportation, ride-sharing, or taxis. Restrict contact with pets and other animals. If you must care for your pet or be around animals while you are sick, wash your hands before and after your interaction and wear a facemask. Make sure that shared spaces in the home have good airflow, such as by an air conditioner or an opened window, weather permitting. Personal Hygiene Procedures: Wear a face mask when in the same room as other people or pets. If a face mask interferes with your breathing, others should wear a mask when sharing space with you. Frequent hand-washing: wash your hands with soap and water for at least 20 seconds. If soap and water are not available, use alcohol-based hand net application architect. Avoid touching your eyes, nose, and mouth with unwashed hands. Household Hygiene Procedures: Avoid sharing personal household items such as dishes, glassware, cups, eating utensils, towels or bedding with other people or pets in your home. After use, these items should be washed with soap and hot water. Disinfect all high-touch surfaces every day with antibacterial cleaning solutions such as Lysol wipes, bleach, cleansers, etc. High-touch surfaces include tabletops, doorknobs, bathroom fixtures, toilets, phones, keyboards, tablets and bedside tables. Immediately clean any surfaces that may have blood, poop or body fluids on them, using antibacterial cleaning solutions such as Lysol wipes, bleach, cleansers, etc. If clothing or bedding come into contact with blood, poop or body fluids, they should be washed immediately. Follow the directions on the laundry detergent and clothing labels but hot water is recommended when possible. Stopping home isolation precautions: If possible, consult your doctor before stopping home isolation precautions. According to the CDC, you can discontinue home isolation precautions when you have met both of these criteria: Your fever and respiratory symptoms have been gone for 24 malika (more content not included)... Normal [facility] INFLUENZA A/B, COVID 2019 PC R,SYMPTOMATICon 02-09-2022 INFLUENZA A, PCR Not detected Normal Not Detected [facility] Comment on above: Result Comment: Resp iratory virus testing is performed routinely by PCR for Influenza A/B and RSV. If Influenza and RSV PCR are negative, testing for parainfluenza 1,2,3 viruses and adenovirus is routinely performed for oncology inpatients and intensive care unit patients at [facility] and is available on request on other patients by calling Laboratory Client Services at [phone]. Not Detected results do not preclude Influenza A/B or RSV infections since the adequacy of sample collection or low viral burden may impact the clinical sensitivity of this test method. Performed By: #### C OINP #### [facility] [address] [place] [address] INFLUENZA B, PCR Not detected Normal Not Detected [facility] Comment on above: Result Comment: Resp iratory virus testing is performed routinely by PCR for Influenza A/B and RSV. If Influenza and RSV PCR are negative, testing for parainfluenza 1,2,3 viruses and adenovirus is routinely performed for oncology inpatients and intensive care unit patients at [facility] and is available on request on other patients by calling Laboratory Client Services at [phone] Not Detected results do not preclude Influenza A/B or RSV infections since the adequacy of sample collection or low viral burden may impact the clinical sensitivity of this test method. . The TaqManTM SARS-CoV-2, Flu A, Flu B Multiplex Assay is a multiplex, real-time RT-PCR assay for the detection of RNA from the SARS-CoV-2, Influenza A, and Influenza B viruses. A negative result does not preclude the possibility of SARS-CoV-2, Influenza A, or Influenza B infections, and should not be used as the sole basis for patient management decision as a negative result may be caused by very low levels of infection, collection errors, or testing errors. . This test was developed and its performance characteristics were determined by the Microbiology Laboratory, Department of Pathology, [facility], [place], [place]. It has not been cleared or approved by the US Food and Drug Administration; however, FDA clearance or approval is not currently required for clinical use. This test should not be regarded as investigational or for research purposes. Performed By: #### C OINP #### [facility] [address] [address] SARS-CoV-2 (COVID-19) RNA MANUELITO+probe Ql (Unsp spec) Not detected Normal Not Detected [facility] Comment on above: Result Comment: . This assay is designed to detect the N, ORF1ab and/or S genes of SARS-CoV-2 via nucleic acid amplification. A Negative (NOT DETECTED) result does not preclude 2019-nCoV infection since the adequacy of sample collection and/or low viral burden may result in presence of viral nucleic acids below the clinical sensitivity of this test method. Negative (NOT DETECTED) result should not be used as the sole basis for treatment or other patient management decisions. Rather negative results should be combined with clinical observations, patient history, and epidemiological information to make patient management decisions. Fact sheet for providers: https://www.fda.gov/media/411388/download Fact sheet for patients: https://www.fda.gov/media/931346/download This test has received FDA Emergency Use Authorization (EUA) and has been verified by [facility] ([facility]). This test is only authorized for the duration of time that circumstances exist to justify the authorization of the emergency use of in vitro diagnostic tests for the detection of SARS-CoV-2 virus and/or diagnosis of COVID-19 infection under section 564(b)(1) of the Act, 21 U.S.C. 360bbb-3(b)(1), unless the authorization is terminated or revoked sooner. [facility] is certified under CLIA-88 as qualified to perform high complexity testing. Testing is performed in the [facility] laboratories located at [address] [place] [address]. Performed By: #### C OINP #### [address] [place] [address] INFLUENZA A/B, COVID 2019 PC R,SYMPTOMATICon 02-08-2022 Lab Specimen Source Nasal, Nasopharyngeal Normal [facility] Comment on above: Performed By: #### C OINP #### [address] [place] [address] Provider Note - ED v3on 06-0 Provider Note - ED v3 Provider Note: Chart Review: ED NOTES ED NOTES: Afsaneh is a 61-year-old male who presents after 4 days of fever and diarrhea. He also states that lethargy is most likely from his lack of eating. He states that he can eat but he does not feel like eating this. He ate strawberries 3 days ago and mashed potatoes yesterday. He has been hydrating with body armor. He states that his urine is dark yellow. He is overly fatigued. He is not vaccinated for COVID or influenza. He has had COVID twice but asymptomatic, once when he went for colonoscopy and another time with a shoulder repair plate. He denies any sore throat, headache, cough, ear or eye pain, loss of taste or smell, shortness of breath and chest pain. He has been treating his fever with acetaminophen effectively. HISTORY OF PRESENTING ILLNESS AFSANEH is a 61 year old Male and was seen by me at 08-Feb-2022 13:09. The historian is the patient. Triage Information: Most recent Vital Sign Value Date PAST MEDICAL HISTORY CURRENT OR FORMER SUBSTANCE USE: Tobacco/Nicotine Use: never smoker Alcohol Use: denies ALLERGIES/INTOLERANCES: No documented data. HEALTH HISTORY: No documented data. OUTPATIENT MEDICATIONS: Home Medications Review Status for Reconciliation: N/A Med Status: N/A No documented data. SIGNIFICANT EVENTS: No documented data. REVIEW OF SYSTEMS CONSTITUTIONAL: POSITIVE for: anorexia, malaise and weakness Negative for: chills, diaphoresis, fever and weight loss EYES: Negative for: lacrimation and pain ENMTEars: Negative for: itching and pain Nose: Negative for: congestion, discharge and sneezing Throat/Neck: Negative for: throat pain CARDIOVASCULAR: Negative for: chest pain and orthopnea RESPIRATORY: Negative for: cough and dyspnea GASTROINTESTINAL: POSITIVE for: diarrhea; Negative for: abdominal pain, constipation, nausea and vomiting; MUSCULOSKELETAL: Negative for: pain and stiffness NEUROLOGICAL: Negative for: dizziness and headache; All other systems reviewed and are negative PHYSICAL EXAM CONSTITUTIONAL: Well appearing, well nourished, awake, alert, oriented to person, place, time/situation and in no apparent distress. HENMT: Airway patent, ears with clear tympanic membranes bilaterally. Nasal mucosa clear. Mouth with dry mucosa. Throat has no vesicles, no oropharyngeal exudates and uvula is midline. Face with no lymph node enlargement. CARDIOVASCULAR: Normal rate, regular rhythm. Heart sounds S1, S2. No murmurs, rubs or gallops. PMI non-displaced. RESPIRATORY: Breath sounds clear and equal bilaterally. GASTROINTESTINAL: Abdomen soft, non-distended, no rebound, no guarding. Bowel sounds normal in all 4 quadrants. CRITICAL CARE VITAL SIGNS: T PRBP SpO2O2(LPM) %FiO2 Method 08-Feb-2022 14:09:[id number] MDM MDM/ED COURSE: Afsaneh is a 61-year-old male with gastroenteritis, fever. With a negative history besides diarrhea and fever, I will swab for COVID-19. He was instructed to isolate until results populate. He will be called when the results are available. Biggest concern is hydration status with the gastroenteritis which was expressed to Afsaneh. Discussed indicators for dehydration including dry mucous membranes and dark urine. He was instructed to monitor the symptoms. Recommended that he try to eat and to increase his energy level and reduce the weakness. He was instructed to continue using acetaminophen for fever relief. Afsaneh was agreeable to this plan of care and was discharged. DISPOSITION Diagnosis/Annotation: ED Dx Name:Gastroenteritis, acute Code:K52.9 Name:Fever Code:R50.9 Name:Encounter for screening for COVID-19 Code:Z11.52 Disposition: discharged Type: home CONSULT CRITICAL CARE TIME Is this a critically ill patient: no Electronic Signatures: Yolanda Orozco (GROUND EQUIPMENT MECHANIC-RECYCLING OPERATOR) (Signed 08-Feb-2022 14:13) Authored: ED Notes, HPI, PMH, ROS, PE, Results/Vital Signs, MDM/ED Course, Clinical Impression, Attestation, Chart Review, Scores Last Updated: 08-Feb-2022 14:13 by Yolanda Orozco (GROUND EQUIPMENT MECHANIC-RECYCLING OPERATOR) Normal [facility] COVID-19, MOLECULARon 2021 SARS-CoV-2 (COVID-19) RNA MANUELITO+probe Ql (Unsp spec) Not detected Normal Not Detected [facility] Comment on above: Result Comment: This test was performed under the FDA's Emergency Use Authorization (EUA). Testing was performed using the Jayde SARS-CoV-2 RT-PCR assay on the [employer] Jayde 6800 System. This test has not been approved for use in asymptomatic patients and its performance in this patient population has not been evaluated. Negative results do not rule out the presence of SARS-CoV-2/COVID-19. Fact sheets for this EUA can be found at the following links: For Healthcare Providers: https://www.fda.gov/media/327186/download For Patients: https://www.fda.gov/media/382430/download Performed By: #### L [id number] #### [facility] [address] [place] [address] Osmin Armenta M.D. [id number] COVID-19, MOLECULARon 2021 SARS-CoV-2 (COVID-19) RNA MANUELITO+probe Ql (Unsp spec) Detected Abnormal Not Detected [facility] Comment on above: Result Comment: This test was performed under the FDA's Emergency Use Authorization (EUA). Testing was performed using the Jayde SARS-CoV-2 RT-PCR assay on the [employer] Jayde 6800 System. This test has not been approved for use in asymptomatic patients and its performance in this patient population has not been evaluated. Negative results do not rule out the presence of SARS-CoV-2/COVID-19. Fact sheets for this EUA can be found at the following links: For Healthcare Providers: https://www.fda.gov/media/916673/download For Patients: https://www.fda.gov/media/013543/download Performed By: #### L [id number] #### [facility] [address] [address] Osmin Armenta M.D. [id number] LG Jt Injection/Arthrocentes is: Danay kneeon 10-12-2021 Asaf Torres MD 10/12/2021 2:50 PM LG Jt Injection/Arthrocentesi s: L knee Performed by: Asaf Torres MD Authorized by: Asaf Torres MD CPT 67480 - Large Joint Arthrocentesis: Consent given by: Patient Supporting Documentation: Indications: Pain Procedure Details: Location: Knee Site: L knee Needle size: 20 G Approach: Lateral Medications: 80 mg triamcinolone acetonide 40 mg/mL Anesthetic used: Lidocaine 1% Anesthetic amount (mL): 1 Patient tolerance: Patient tolerated the procedure well with no immediate complications [facility] LG Jt Injection/Arthrocentes is: Danay kneeon 08-18-2021 Asaf Torres MD 08/18/2021 8:02 AM LG Jt Injection/Arthrocentesi s: L knee Performed by: Asaf Torres MD Authorized by: Asaf Torres MD CPT 92759 - Large Joint Arthrocentesis: Consent given by: Patient Supporting Documentation: Indications: Pain Procedure Details: Location: Knee Site: L knee Needle size: 20 G Approach: Lateral Medications: 80 mg methylPREDNISolone acetate 40 mg/mL Anesthetic used: Lidocaine 1% Anesthetic amount (mL): 1 Patient tolerance: Patient tolerated the procedure well with no immediate complications [facility] DIGIT OF HAND LEFT 5THon DIGIT OF HAND LEFT 5TH EXAM: DIGIT OF KERR ND LEFT 5TH HISTORY: Injury of finger Crush injury to the fifth digit. COMPARISON: None. TECHNIQUE: AP, lateral, and oblique views of the left fifth digit. FINDINGS: There is obvious soft tissue disruption. No underlying fracture or dislocation is seen. Radiodense foreign bodies are not identified. IMPRESSION: Soft tissue injury without underlying fracture or radiodense foreign body. Normal [facility] [place] ORT LARGE JOINT ARTHROCEN TESISon 10-04-2019 Asaf Torres MD 10/04/2019 9:00 AM LG Jt Injection/Arthrocentesi s: L knee Performed by: Asaf Torres MD Authorized by: Asaf Torres MD CPT 34933 - Large Joint Arthrocentesis: Consent given by: Patient Supporting Documentation: Indications: Pain Procedure Details: Location: Knee Site: L knee Needle size: 20 G Approach: Lateral Medications: 80 mg methylPREDNISolone acetate 40 mg/mL Anesthetic used: Lidocaine 1% Anesthetic amount (mL): 1 Patient tolerance: Patient tolerated the procedure well with no immediate complications [facility] Asaf Torres MD 10/04/2019 9:00 AM LG Jt Injection/Arthrocentesi s Performed by: Asaf Torres MD Authorized by: Asaf Torres MD CPT 92696 - Large Joint Arthrocentesis: Consent given by: Patient Supporting Documentation: Indications: Pain Procedure Details: Location: Knee Needle size: 20 G Approach: Lateral Medications: 80 mg methylPREDNISolone acetate 40 mg/mL Anesthetic used: Lidocaine 1% Anesthetic amount (mL): 1 Patient tolerance: Patient tolerated the procedure well with no immediate complications [facility] XR Ankle 3+ Views Lefton XR Ankle 3+ Views Left Exam Date/Time: 04/18/2019 10:04 EDT Reason for Exam: Pain Report STUDY: XR Ankle 3+ Views Left;; 04/18/2019 10:04 am INDICATION: Pain. COMPARISON: None. ACCESSION NUMBER(S): [id number] ORDERING CLINICIAN: Richard Floyd FINDINGS: Three views left ankle: There is no fracture or dislocation. There is medial malleolar soft tissue swelling. The ankle mortise is intact. There is mild spurring of the medial malleolus. There is mild spurring of the dorsal and ventral lips of the distal tibial epiphysis There is a moderate-sized plantar calcaneal spur. There is a well corticated ossification seen on the lateral view dorsal to the navicular bone. Findings are consistent with remote injury. IMPRESSION: Soft tissue swelling left ankle; no acute bony abnormality FINAL REPORT Dictated: 04/18/2019 10:20 am Yamilet MD, Venice A Signed (Electronic Signature): 04/18/2019 10:20 am Signed by: Venice Woodard MD Technologist: TAMMY [facility] XR Abdomen 1 Viewon 06-05-20 XR Abdomen 1 View Exam Date/Time: 06/05/2018 08:11 EDT Reason for Exam: Kidney stone Report STUDY: XR Abdomen 1 View; 06/05/2018 8:11 am INDICATION: Kidney stone. COMPARISON: 05/20/2018 ACCESSION NUMBER(S): [id number] ORDERING CLINICIAN: Chilango Espinoza FINDINGS: 2 supine AP radiographs of the abdomen were obtained. No definite abnormal calcifications are seen over the kidneys or ureters bilaterally. Rounded calcifications are seen over the pelvis, most consistent with phleboliths, though distal ureteral calculi cannot be excluded. There is a nonobstructive bowel gas pattern present. Free intraperitoneal air and air-fluid levels cannot be excluded without upright or decubitus images. IMPRESSION: Nonobstructive bowel gas pattern. FINAL REPORT Dictated: 06/05/2018 12:09 pm Miguel Anderson MD Signed (Electronic Signature): 06/05/2018 12:09 pm Signed by: Miguel Anderson MD Technologist: KIRSTEN [facility] XR Abdomen 1 Viewon 05-20-20 XR Abdomen 1 View Exam Date/Time: 05/20/2018 08:06 EDT Reason for Exam: Kidney stone Report STUDY: XR Abdomen 1 View; 05/20/2018 8:06 am INDICATION: Kidney stone. COMPARISON: CT of the abdomen and pelvis dated 04/30/2018 ACCESSION NUMBER(S): [id number] ORDERING CLINICIAN: Chilango Espinoza FINDINGS: 2 supine AP radiographs of the abdomen were obtained. Multiple rounded calcifications are seen over the pelvis, similar to that seen on the CT, most consistent with phleboliths. The calcification over the left mid ureter on the CT is not clearly seen on the current examination. There is a nonobstructive bowel gas pattern present. Free intraperitoneal air and air-fluid levels cannot be excluded without upright or decubitus images. IMPRESSION: Calcification over the left ureter seen on recent CT not clearly seen on the current examination. FINAL REPORT Dictated: 05/20/2018 9:11 am Miguel Anderson MD Signed (Electronic Signature): 05/20/2018 9:11 am Signed by: Miguel Anderson MD Technologist: ILIA Neves [facility] C Urineon 05-02-2018 C Urine Final Report: No growth Normal [facility] Comment on above: Performed By: #### 2 [id number] #### BRANDON Microbiology Subsection [address] [place] [address] 6[address] Auto Diffon 04-30-2018 Basophils (Bld) [#/Vol] 0.1 E3/mcL Normal 0.0-0.2 [facility] Comment on above: Order Comment: Order Added by Discern Expert. Performed By: #### 2 [id number] #### BRANDON [employer] [address] [place] [address] 45184 Basophils/100 WBC (Bld) 0.8 % Normal 0.0-2.0 [facility] Comment on above: Order Comment: Order Added by Discern Expert. Performed By: #### 2 [id number] #### BRANDON [employer] [address] [place] [address] 98736 Eos Absolute 0.0 E3/mcL Normal 0.0-0.7 [facility] Comment on above: Order Comment: Order Added by Discern Expert. Performed By: #### 2 [id number] #### BRANDON [employer] [address] [place] [address] 50599 Eosinophils/100 WBC (Bld) 0.4 % Normal 0.0-11.0 [facility] Comment on above: Order Comment: Order Added by Discern Expert. Performed By: #### 2 [id number] #### BRANDON [employer] [address] [place] [address] 26853 Lymphocytes (Bld) [#/Vol] 1.5 E3/mcL Normal 1.2-3.4 [facility] Comment on above: Order Comment: Order Added by Discern Expert. Performed By: #### 2 [id number] #### BRANDON [employer] [address] [place] [address] 33983 Lymphocytes/100 WBC (Bld) 16.2 % Low 20.0-55.0 [facility] Comment on above: Order Comment: Order Added by Discern Expert. Performed By: #### 2 [id number] #### BRANDON [employer] [address] [place] [address] [place] Absolute 0.5 E3/mcL Normal 0.0-0.7 [facility] Comment on above: Order Comment: Order Added by Discern Expert. Performed By: #### 2 [id number] #### BRANDON [employer] [address] [place] [address] Monocytes/100 WBC (Bld) 5.5 % Normal 0.0-10.0 [facility] Comment on above: Order Comment: Order Added by Discern Expert. Performed By: #### 2 [id number] #### BRANDON [employer] [address] [place] [address] Neutro Absolute 7.4 E3/mcL High 1.4-6.5 [facility] Comment on above: Order Comment: Order Added by Discern Expert. Performed By: #### 2 [id number] #### BRANDON [employer] [address] [place] [address] Neutro Auto 77.1 % High 37.0-75.0 [facility] Comment on above: Order Comment: Order Added by Discern Expert. Performed By: #### 2 [id number] #### BRANDON [employer] [address] [place] [address] BMPon 04-30-2018 Creatinine [Mass/Vol] 1.5 mg/dL High 0.6-1.3 [facility] Comment on above: Performed By: #### 2 [id number] #### BRANDON [employer] [address] [place] [address] Urea nitrogen [Mass/Vol] 15 mg/dL Normal 7-18 [facility] Comment on above: Performed By: #### 2 [id number] #### BRANDON [employer] [address] [place] [address] Urea nitrogen/Creatinine [Mass ratio] 10.0 ratio Normal 5.4-30.0 [facility] Comment on above: Performed By: #### 2 [id number] #### BRANDON [employer] [address] [place] [address] Calcium [Mass/Vol] 9.8 mg/dL Normal 8.4-10.2 [facility] Comment on above: Performed By: #### 2 [id number] #### BRANDON [employer] [address] [place] [address] Chloride [Moles/Vol] 104 mmol/L Normal 98-107 [facility] Comment on above: Performed By: #### 2 [id number] #### BRANDON [employer] [address] [place] [address] CO2 [Moles/Vol] 21.3 mmol/L Low 24.0-30.0 [facility] Comment on above: Performed By: #### 2 [id number] #### BRANDON [employer] [address] [place] [address] Glucose [Mass/Vol] 184 mg/dL High 70-99 [facility] Comment on above: Performed By: #### 2 [id number] #### BRANDON [employer] [address] [place] [address] Potassium [Moles/Vol] 3.8 mmol/L Normal 3.5-5.1 [facility] Comment on above: Performed By: #### 2 854086 #### BRANDON [employer] [address] [place] [address] Sodium [Moles/Vol] 140 mmol/L Normal 136-145 [facility] Comment on above: Performed By: #### 2 [id number] #### BRANDON [employer] [address] [place] [address] CBC w/ Auto Diffon 8 Erythrocyte distribution width (RBC) [Ratio] 13.3 % Normal 11.5-14.5 [facility] Comment on above: Performed By: #### 2 [id number] #### BRANDON Rem[employer] [address] [place] [address] Hematocrit (Bld) [Volume fraction] 47.6 % Normal 42.0-52.0 [facility] Comment on above: Performed By: #### 2 [id number] #### BRANDON [employer] [address] [place] [address] Hemoglobin (Bld) [Mass/Vol] 16.3 g/dL Normal 13.5-18.0 [facility] Comment on above: Performed By: #### 2 [id number] #### BRANDON Rem[employer] [address] [place] [address] MCH (RBC) [Entitic mass] 29.4 pg Normal 27.0-31.0 [facility] Comment on above: Performed By: #### 2 066703 #### BRANDON [employer] [address] [place] [address] MCHC (RBC) [Mass/Vol] 34.1 g/dL Normal 33.0-37.0 [facility] Comment on above: Performed By: #### 2 755874 #### BRANDON Rem[employer] [address] [place] [address] MCV (RBC) [Entitic vol] 86.2 fL Normal 78.0-100.0 [facility] Comment on above: Performed By: #### 2 [id number] #### BRANDON RemHemo [facility] [place] [address] Platelet mean volume (Bld) [Entitic vol] 7.6 fL Normal 7.4-11.0 [facility] Comment on above: Performed By: #### 2 [id number] #### BRANDON Rem[employer] [facility] [place] [address] Platelets (Bld) [#/Vol] 353 E3/mcL Normal 130-400 [facility] Comment on above: Performed By: #### 2 079429 #### BRANDON [employer] [facility] [place] [address] RBC (Bld) [#/Vol] 5.52 E6/mcL Normal 3.90-6.10 [facility] Comment on above: Performed By: #### 2 788250 #### BRANDON Rem[employer]emo [facility] [place] [address] WBC (Bld) [#/Vol] 9.5 E3/mcL Normal 3.6-11.0 [facility] Comment on above: Performed By: #### 2 [id number] #### BRANDON RemHemo [address] [place] [address] CT Abdomen/Pelvis w/o Contra ston 04-30-2018 CT Abdomen/Pelvis w/o Contrast Exam Date/Time: 04/30/2018 15:04 EDT Reason for Exam: Pain Report STUDY: CT Abdomen/Pelvis w/o Contrast; 04/30/2018 3:04 pm INDICATION: Pain. COMPARISON: None. ACCESSION NUMBER(S): [id number] ORDERING CLINICIAN: Grace Hauser TECHNIQUE: Contiguous axial images were obtained at 3mm slice thickness through the abdomen and pelvis without intravenous contrast administration. Coronal and sagittal reconstructions at 3 mm slice thickness were performed. FINDINGS: The study is limited by the lack of intravenous contrast. LOWER CHEST: Evaluation of the visualized lung bases is grossly unremarkable. The heart is within normal limits for size. ABDOMEN: LIVER: The liver is within normal limits for appearance, without evidence of focal masses. BILE DUCTS: No definite intra or extrahepatic biliary dilatation is identified. GALLBLADDER: The gallbladder is nondilated. No definite calcified gallstones are seen. PANCREAS: The pancreas is within normal limits for appearance, without evidence of focal masses. SPLEEN: The spleen is within normal limits for size. No focal splenic mass is seen. ADRENAL GLANDS: A 2.1 x 2.0 cm hypodense mass is seen in the posterior aspect of the left adrenal gland. This measures at water density, consistent with a lipid rich adenoma. Exam Date/Time: 04/30/2018 15:04 EDT Report KIDNEYS AND URETERS: A 5.5 mm calculus is seen in the midportion of the left ureter. This is seen to produce mild- to-moderate left-sided hydronephrosis and hydroureter. No definite additional renal or ureteral calculus is seen. No left-sided hydronephrosis or hydroureter is seen. A rounded hyperdense lesion is seen from the posterior midpole of the left kidney, measuring up to 1.5 cm in diameter, of uncertain etiology. PELVIS: BLADDER: The bladder is decompressed. REPRODUCTIVE ORGANS: The prostate is heterogeneous and enlarged measuring at up to 5.5 x 3.9 cm in diameter. BOWEL: The colon and small bowel are within normal limits for course, caliber and appearance, without evidence of wall thickening or obstruction. The appendix is decompressed. No CT evidence of acute diverticulitis or appendicitis is seen. VESSELS: Scattered atherosclerotic calcifications are seen throughout the infrarenal abdominal aorta and iliac arteries. The abdominal aorta is within normal limits for course, caliber and appearance, without evidence of aneurysm. PERITONEUM/RETROPERITON EUM/LYMPH NODES: There is no free intraperitoneal air or free fluid identified. No gross mesenteric or retroperitoneal lymphadenopathy is identified. BONE AND SOFT TISSUE: There is no evidence of acute fracture identified. No evidence of abdominal wall mass or hernia is identified. IMPRESSION: 1. Calculus in the midportion of the left ureter producing [id number] obstructive uropathy. 2. Hyperdense structure from the left kidney, of uncertain etiology. FINAL REPORT Dictated: 04/30/2018 3:20 pm Miguel Anderson MD Signed (Electronic Signature): 04/30/2018 3:20 pm Signed by: Miguel Anderson MD Technologist: TAMMY, Normal [facility] Hep Func Panelon 04-30-2018 Albumin [Mass/Vol] 4.4 g/dL Normal 3.2-5.0 [facility] Comment on above: Performed By: #### 2 [id number] #### [address] [address] Albumin/Globulin [Mass ratio] 1.2 {ratio} Normal 1.1-1.9 [facility] Comment on above: Performed By: #### 2 [id number] #### BRANDON [employer] [address] [place] [address] Alk Phos 60 Int._Unit/L Normal 42-121 [facility] Comment on above: Performed By: #### 2 [id number] #### [place] [address] [place] [address] ALT [Catalytic activity/Vol] 24 Int._Unit/L Normal 10-40 [facility] Comment on above: Performed By: #### 2 [id number] #### BRANDON [employer] [facility] [place] [address] AST [Catalytic activity/Vol] 28 Int._Unit/L Normal 10-42 [facility] Comment on above: Performed By: #### 2 [id number] #### BRANDON [employer] [address] [place] [address] Bili Direct .13 mg/dL Normal .00-.20 [facility] Comment on above: Performed By: #### 2 [id number] #### [facility] [place] [address] Bili Indirect 0.8 Normal [facility] Comment on above: Result Comment: No e stablished ranges available for the Indirect Biliruben. Performed By: #### 2 [id number] #### BRANDON [employer] [address] [place] [address] 28111 Bili Total 0.9 mg/dL Normal 0.2-1.0 [facility] Comment on above: Performed By: #### 2 066551 #### BRANDON Rem[employer] [facility] [place] [address] Globulin (S) [Mass/Vol] 3.6 g/dL Normal 2.0-4.0 [facility] Comment on above: Performed By: #### 2 626326 #### BRANDON [employer] [address] [place] [address] Protein [Mass/Vol] 8.0 g/dL Normal 6.4-8.3 [facility] Comment on above: Performed By: #### 2 056270 #### BRANDON [employer] [address] [place] [address] 13129 Lipase Levelon 04-30-2018 Lipase Lvl 63 U/L High 8-57 [facility] Comment on above: Performed By: #### 2 [id number] #### BRANDON [employer] [address] [place] [address] 59082 UA Completeon 04-30-2018 Color (U) Yellow Normal Yellow [facility] Comment on above: Performed By: #### 8 [id number] #### BRANDON Urinalysis Automated Subsection [address] [place] [address]70 Glucose (U) [Mass/Vol] Negative Normal Negative [facility] Comment on above: Performed By: #### 8 [id number] #### BRANDON Urinalysis Automated Subsection [address] [place] [address] 85532 Ketones Ql (U) Negative Normal Negative [facility] Comment on above: Performed By: #### 8 [id number] #### BRANDON Urinalysis Automated Subsection [address] [place] [address] 34171 RBC (U) [#/Vol] /uL Abnormal 0-3 [facility] Comment on above: Performed By: #### 8 [id number] #### BRANDON Urinalysis Automated Subsection [address] [place] [address] UA Blood 3+ Normal Negative [facility] Comment on above: Result Comment: High concentration of Ascorbic Acid present in urine. This may cause False Negative Occ Blood. Review microscopic results and patient's clinical symptoms. Performed By: #### 8 [id number] #### BRANDON Urinalysis Automated Subsection [facility] [place] [address] UA Ascorbic Acid 20 mg/dL High <=19 [facility] Comment on above: Performed By: #### 8 [id number] #### BRANDON Urinalysis Automated Subsection [facility] [place] [address] UA Bacteria Trace Abnormal None [facility] Comment on above: Performed By: #### 8 [id number] #### BRANDON Urinalysis Automated Subsection [facility] [place] [address] UA CA Ox Crystal 10-20 Abnormal None [facility] Comment on above: Performed By: #### 8 [id number] #### BRANDON Urinalysis Automated Subsection [facility] [place] [address] UA Clarity SltCloudy Abnormal Clear [facility] Comment on above: Performed By: #### 8 [id number] #### BRANDON Urinalysis Automated Subsection [facility] [place] [address] UA Leuk Est Negative Normal Negative [facility] Comment on above: Performed By: #### 8 [id number] #### BRANDON Urinalysis Automated Subsection [facility] [place] [address] UA Mucous Trace Abnormal Trace [facility] Comment on above: Performed By: #### 8 [id number] #### BRANDON Urinalysis Automated Subsection [facility] [place] [address] UA Nitrite Negative Normal Negative [facility] Comment on above: Performed By: #### 8 [id number] #### BRANDON Urinalysis Automated Subsection [address] [place] [address] 86683 UA pH 5.0 Normal 4.6-8.0 [facility] Comment on above: Performed By: #### 8 [id number] #### BRANDON Urinalysis Automated Subsection [facility] [place] [address] UA Protein 2+ Abnormal Negative [facility] Comment on above: Performed By: #### 8 [id number] #### BRANDON Urinalysis Automated Subsection [facility] [place] [address] UA Spec Grav 1.027 Normal 1.003-1.030 [facility] Comment on above: Performed By: #### 8 [id number] #### BRANDON Urinalysis Automated Subsection [facility] [place] [address] UA Squam Epithelial 0-5 Normal 0-5 [facility] Comment on above: Performed By: #### 8 [id number] #### BRANDON Urinalysis Automated Subsection [address] [place] [address] UA Urobilinogen Negative Normal [facility] Comment on above: Performed By: #### 8 [id number] #### BRANDON Urinalysis Automated Subsection [address] [place] [address] UA WBC 5-10 Abnormal 0-5 [facility] Comment on above: Performed By: #### 8 [id number] #### BRANDON Urinalysis Automated Subsection [address] [place] [address] Urobilinogen Qn (U) Negative Normal Negative [facility] Comment on above: Performed By: #### 8 [id number] #### BRANDON Urinalysis Automated Subsection [address] [place], [place] [id number] eGFRon 04-30-2018 GFR/1.73 sq M predicted among non-blacks MDRD (S/P/Bld) [Vol rate/Area] 58 mL/min/1.73 m2 [facility] Comment on above: Order Comment: Order added by Discern Expert. Performed By: #### 1 [id number] #### BRANDON [employer] [address] [place], [place] [address] GFR/1.73 sq M predicted among non-blacks MDRD (S/P/Bld) [Vol rate/Area] 48 mL/min/1.73 m2 [facility] Comment on above: Order Comment: Order added by Discern Expert. Performed By: #### 1 [id number] #### BRANDON [employer] [address] [place], [place] [id number] XR SHOULDER RIGHT 2+ VIEWS ( STANDARD)on 03-21-2017 Thyroid stimulating hormone (TSH) X-rays of the right shoulder 3 views show well-preserved glenohumeral joint. There is no fracture identified.Dictated by: FLYNN TORRES on SunMar 21, 2017 12:10:22 PM EDTTranscribed by: FLYNN TORRES on SunMar 21, 2017 12:10:22 PM EDTFinalized by: FLYNN TORRES on SunMar 21, 2017 12:10:22 PM EDT Normal [facility] OCT MACULA CIRRUS OU (BOTH E YES) [facility] Vital Signs Date Time Vital Sign Value Performing Clinician Facility 03-11-2025 08:29-0400 Body height 182.[address] Chilango Welsh MD Work Phone: [facility] 03-11-2025 08:29-0400 Body mass index (BMI) [Ratio] 26.6 kg/m2 Dr. Chilango Welsh MD Work Phone: [facility] 03-11-2025 08:29-0400 Body weight 88.[address] Chilango Welsh MD Work Phone: [facility] 03-11-2025 08:29-0400 Diastolic blood pressure 80 mm[Hg] Dr. Chilango Welsh MD Work Phone: [facility] 03-11-2025 08:29-0400 Heart rate 52 /min Dr. Chilango Welsh MD Work Phone: [facility] 03-11-2025 08:29-0400 Respiratory rate 16 /min Dr. Chilango Welsh MD Work Phone: [facility] 03-11-2025 08:29-0400 SaO2% (BldA) [Mass fraction] 96 % Dr. Chilango Welsh MD Work Phone: [facility] 03-11-2025 08:29-0400 Systolic blood pressure 131 mm[Hg] Dr. Chilango Welsh MD Work Phone: [facility] 02-11-2025 16:00-0400 Body height 182.9 cm Asaf Torres MD Work Phone: [facility] Comment on above: pt reports 02-11-2025 16:00-0400 Body mass index (BMI) [Ratio] 26.45 kg/m2 Asaf Torres MD Work Phone: [facility] 02-11-2025 16:00-0400 Body weight 88.45 kg Asaf Torres MD Work Phone: [facility] Comment on above: pt reports 02-04-2025 15:42-0400 Body height 182.9 cm Asaf Torres MD Work Phone: [facility] Comment on above: pt reports 02-04-2025 15:42-0400 Body mass index (BMI) [Ratio] 26.45 kg/m2 Asaf Torres MD Work Phone: [facility] 02-04-2025 15:42-0400 Body weight 88.45 kg Asaf Torres MD Work Phone: [facility] Comment on above: pt reports 12-22-2024 08:53-0400 Body height 182.9 cm Nora Rosa GROUND EQUIPMENT MECHANIC-RECYCLING OPERATOR Work Phone: [facility] 12-22-2024 08:53-0400 Body mass index (BMI) [Ratio] 26.31 kg/m2 Nora Rosa GROUND EQUIPMENT MECHANIC-RECYCLING OPERATOR Work Phone: [facility] 12-22-2024 08:53-0400 Body weight 88 kg Nora Rosa GROUND EQUIPMENT MECHANIC-RECYCLING OPERATOR Work Phone: [facility] 12-22-2024 08:53-0400 Diastolic blood pressure 74 mm[Hg] Nora Rosa GROUND EQUIPMENT MECHANIC-RECYCLING OPERATOR Work Phone: [facility] 12-22-2024 08:53-0400 Systolic blood pressure 120 mm[Hg] Nora Rosa GROUND EQUIPMENT MECHANIC-RECYCLING OPERATOR Work Phone: [facility] 10-09-2024 14:18-0500 Body height 182.9 cm Asaf Torres MD Work Phone: [facility] 10-09-2024 14:18-0500 Body mass index (BMI) [Ratio] 27.12 kg/m2 Asaf Torres MD Work Phone: [facility] 10-09-2024 14:18-0500 Body weight 90.72 kg Asaf Torres MD Work Phone: [facility] 08-20-2024 16:04-0500 Body height 182.9 cm Asaf Torres MD Work Phone: [facility] 08-20-2024 16:04-0500 Body mass index (BMI) [Ratio] 27.12 kg/m2 Asaf Torres MD Work Phone: [facility] 08-20-2024 16:04-0500 Body weight 90.72 kg Asaf Torres MD Work Phone: [facility] 02-20-2024 16:02-0400 Body height 182.9 cm Asaf Torres MD Work Phone: [facility] 02-20-2024 16:02-0400 Body mass index (BMI) [Ratio] 27.8 kg/m2 Asaf Torres MD Work Phone: [facility] 02-20-2024 16:02-0400 Body weight 92.99 kg Asaf Torres MD Work Phone: [facility] 12-21-2023 08:17-0400 Body mass index (BMI) [Ratio] 26.9 kg/m2 Dr. Chilango Welsh Work Phone: [facility] 12-21-2023 08:08-0400 Body height 182.[address] Chilango Welsh Work Phone: [facility] 12-21-2023 08:08-0400 Body weight 90.[address] Chilango Welsh Work Phone: [facility] 12-21-2023 08:03-0400 Diastolic blood pressure 87 mm[Hg] Dr. Chilango Welsh Work Phone: [facility] 12-21-2023 08:03-0400 Heart rate 50 /min Dr. Chilango Welsh Work Phone: [facility] 12-21-2023 08:03-0400 SaO2% (BldA) [Mass fraction] 95 % Dr. Chilango Welsh Work Phone: [facility] 12-21-2023 08:03-0400 Systolic blood pressure 127 mm[Hg] Dr. Chilango Welsh Work Phone: [facility] 12-17-2023 15:14-0400 Diastolic blood pressure 77 mm[Hg] [facility] PAC Work Phone: [facility] 12-17-2023 15:14-0400 Systolic blood pressure 135 mm[Hg] [facility] PAC Work Phone: [facility] 12-10-2023 08:38-0400 Body height 182.9 cm Ramses Chau MD Work Phone: [facility] 12-10-2023 08:38-0400 Body mass index (BMI) [Ratio] 25.93 kg/m2 Ramses Chau MD Work Phone: [facility] 12-10-2023 08:38-0400 Body temperature 98.01 [degF] Ramses Chau MD Work Phone: [facility] 12-10-2023 08:38-0400 Body weight 86.73 kg Ramses Chau MD Work Phone: [facility] 12-10-2023 08:38-0400 Diastolic blood pressure 78 mm[Hg] Ramses Chau MD Work Phone: [facility] 12-10-2023 08:38-0400 Heart rate 76 /min Ramses Chau MD Work Phone: [facility] 12-10-2023 08:38-0400 Respiratory rate 14 /min Ramses Chau MD Work Phone: [facility] 12-10-2023 08:38-0400 SaO2% (BldA) [Mass fraction] 96 % Ramses Chau MD Work Phone: [facility] 12-10-2023 08:38-0400 Systolic blood pressure 132 mm[Hg] Ramses hCau MD Work Phone: [facility] 12-03-2023 13:27-0400 Body mass index (BMI) [Ratio] 25.6 kg/m2 Dr. Chilango Welsh Work Phone: [facility] 12-03-2023 13:27-0400 Body weight 85.[address] Chilango Welsh Work Phone: [facility] 12-03-2023 13:27-0400 Diastolic blood pressure 82 mm[Hg] Dr. Chilango Welsh Work Phone: [facility] 12-03-2023 13:27-0400 Heart rate 70 /min Dr. Chilango Welsh Work Phone: [facility] 12-03-2023 13:27-0400 Respiratory rate 18 /min Dr. Chilango Welsh Work Phone: [facility] 12-03-2023 13:27-0400 Systolic blood pressure 126 mm[Hg] Dr. Chilango Welsh Work Phone: [facility] 11-19-2023 10:11-0400 Diastolic blood pressure 77 mm[Hg] Ani Ríos MD Work Phone: [facility] 11-19-2023 10:11-0400 Systolic blood pressure 133 mm[Hg] Ani Ríos MD Work Phone: [facility] 11-19-2023 06:43-0400 Body mass index (BMI) [Ratio] 26.91 kg/m2 Ani Ríos MD Work Phone: 2(247)[phone] [address] 11-19-2023 06:43-0400 Body temperature 98.6 [degF] Ani Ríos MD Work Phone: 6(524)[phone] [place] [address] 11-19-2023 06:43-0400 Body weight 89.99 kg Ani Ríos MD Work Phone: 0(055)[phone] [place] [address] 11-19-2023 06:43-0400 Heart rate 73 /min Ani Ríos MD Work Phone: 2([phone])[phone] [place] [address] 11-19-2023 06:43-0400 Respiratory rate 20 /min Ani Ríos MD Work Phone: 2(272)[phone] [place] [address] 11-19-2023 06:43-0400 SaO2% (BldA) [Mass fraction] 91 % Ani Ríos MD Work Phone: 8(841)[phone] [place] [address] 11-16-2023 08:00-0400 Body height 182.9 cm Ani Ríos MD Work Phone: 6(431)[phone] [place] [address] 10-23-2023 08:36-0500 Diastolic blood pressure 72 mm[Hg] Shoaib Dubon MD Work Phone: [facility] 10-23-2023 08:36-0500 Systolic blood pressure 135 mm[Hg] Shoaib Dubon MD Work Phone: 0(231)[phone] [place] [address] 10-23-2023 06:00-0500 Heart rate 50 /min Shoaib Dubon MD Work Phone: 9(065)944-737955 [place] [address] 10-23-2023 05:20-0500 Body mass index (BMI) [Ratio] 26.01 kg/m2 Shoaib Dubon MD Work Phone: [facility] 10-23-2023 05:20-0500 Body temperature 97.9 [degF] Shoaib Dubon MD Work Phone: [facility] 10-23-2023 05:20-0500 Body weight 87 kg Shoaib Dubon MD Work Phone: 7(970)[phone] [place] [address] 10-23-2023 05:20-0500 Respiratory rate 16 /min Shoaib Dubon MD Work Phone: 3([phone])012-574542 [address] 10-23-2023 05:20-0500 SaO2% (BldA) [Mass fraction] 97 % Shoaib Dubon MD Work Phone: 1(693)991-449042 [address] 10-20-2023 01:40-0500 Body height 182.9 cm Shoaib Dubon MD Work Phone: [facility] 10-19-2023 20:55-0500 Body temperature 98.2 [degF] Dr. Chilango Welsh Work Phone: [facility] 10-19-2023 20:55-0500 Diastolic blood pressure 80 mm[Hg] Dr. Chilango Welsh Work Phone: [facility] 10-19-2023 20:55-0500 Heart rate 55 /min Dr. Chilango Welsh Work Phone: [facility] 10-19-2023 20:55-0500 Respiratory rate 18 /min Dr. Chilango Welsh Work Phone: [facility] 10-19-2023 20:55-0500 SaO2% (BldA) [Mass fraction] 96 % Dr. Chilango Welsh Work Phone: [facility] 10-19-2023 20:55-0500 Systolic blood pressure 119 mm[Hg] Dr. Chilango Welsh Work Phone: [facility] 10-18-2023 15:51-0500 Body height 182.[address] Chilango Welsh Work Phone: [facility] 10-18-2023 15:51-0500 Body weight 90.[address] Chilango Welsh Work Phone: [facility] 10-18-2023 15:31-0500 Body mass index (BMI) [Ratio] 26.9 kg/m2 Dr. Chilango Welsh Work Phone: [facility] 10-18-2023 15:08-0500 Diastolic blood pressure 88 mm[Hg] [facility] 10-18-2023 15:08-0500 Heart rate 62 /min [facility] 10-18-2023 15:08-0500 Respiratory rate 22 /min [facility] 10-18-2023 15:08-0500 SaO2% (BldA) [Mass fraction] 96 % [facility] 10-18-2023 15:08-0500 Systolic blood pressure 135 mm[Hg] [facility] 10-18-2023 14:23-0500 Body temperature 97.6 [degF] [facility] 10-18-2023 12:49-0500 Body mass index (BMI) [Ratio] 27.5 kg/m2 [facility] 10-18-2023 12:49-0500 Body weight 92 kg [facility] 10-18-2023 12:32-0500 Body height 182.88 cm [facility] 09-26-2023 12:58-0500 Body height 182.9 cm Asaf Torres MD Work Phone: [facility] 09-26-2023 12:58-0500 Body mass index (BMI) [Ratio] 27.8 kg/m2 Asaf Torres MD Work Phone: [facility] 09-26-2023 12:58-0500 Body weight 92.99 kg Asaf Torres MD Work Phone: [facility] 10-18-2022 12:29-0500 Body height 182.9 cm Asaf Torres MD Work Phone: [facility] 10-18-2022 12:29-0500 Body mass index (BMI) [Ratio] 27.12 kg/m2 Asaf Torres MD Work Phone: [facility] 10-18-2022 12:29-0500 Body weight 90.72 kg Asaf Torres MD Work Phone: [facility] 10-18-2022 12:29-0500 Respiratory rate 18 /min Asaf Torres MD Work Phone: [facility] 04-19-2022 13:39-0400 Body mass index (BMI) [Ratio] 27.12 kg/m2 Asaf Torres MD Work Phone: [facility] 04-19-2022 13:39-0400 Body weight 90.72 kg Asaf Torres MD Work Phone: [facility] 02-25-2022 11:34-0400 Body height 182.8 cm [facility] 02-25-2022 11:34-0400 Body temperature 98.24 [degF] [facility] 02-25-2022 11:34-0400 Diastolic blood pressure 88 mm[Hg] Text [facility] 02-25-2022 11:34-0400 Heart rate 71 /min Text [facility] 02-25-2022 11:34-0400 Respiratory rate 16 /min Text [facility] 02-25-2022 11:34-0400 SaO2% (BldA) [Mass fraction] 97 % [facility] 02-25-2022 11:34-0400 Systolic blood pressure 142 mm[Hg] Text Entry [facility] 02-22-2022 15:38-0400 Body height 182.9 cm Asaf Torres MD Work Phone: [facility] 02-22-2022 15:38-0400 Body mass index (BMI) [Ratio] 27.12 kg/m2 Asaf Torres MD Work Phone: [facility] 02-22-2022 15:38-0400 Body weight 90.72 kg Asaf Torres MD Work Phone: [facility] 01-25-2022 12:40-0400 Body height 182.9 cm Asaf Torres MD Work Phone: [facility] 01-25-2022 12:40-0400 Body mass index (BMI) [Ratio] 27.12 kg/m2 Asaf Torres MD Work Phone: [facility] 01-25-2022 12:40-0400 Body weight 90.72 kg Asaf Torres MD Work Phone: [facility] 01-25-2022 12:40-0400 Respiratory rate 18 /min Asaf Torres MD Work Phone: [facility] 12-30-2021 11:34-0400 Body height 182.9 cm Asaf Torres MD Work Phone: [facility] 12-30-2021 11:34-0400 Body mass index (BMI) [Ratio] 27.12 kg/m2 Asaf Torres MD Work Phone: [facility] 12-30-2021 11:34-0400 Body weight 90.72 kg Asaf Torres MD Work Phone: [facility] 12-30-2021 11:34-0400 Respiratory rate 18 /min Asaf Torres MD Work Phone: [facility] 11-30-2021 13:02-0400 Body height 182.9 cm Asaf Torres MD Work Phone: [facility] 11-30-2021 13:02-0400 Body mass index (BMI) [Ratio] 27.12 kg/m2 Asaf Torres MD Work Phone: [facility] 11-30-2021 13:02-0400 Body weight 90.72 kg Asaf Torres MD Work Phone: [facility] 08-17-2021 15:02-0500 Body height 182.9 cm Asaf Torres MD Work Phone: [facility] 08-17-2021 15:02-0500 Body mass index (BMI) [Ratio] 25.09 kg/m2 Asaf Torres MD Work Phone: [facility] 08-17-2021 15:02-0500 Body weight 83.92 kg Asaf Torres MD Work Phone: [facility] 08-17-2021 15:02-0500 Respiratory rate 18 /min Asaf Torres MD Work Phone: [facility] 10-02-2019 13:04-0500 BMI (Body Mass Index) 25.09 kg/m2 [facility] 10-02-2019 13:04-0500 Body weight 83.92 kg NinaDamon Natalya [facility] 10-02-2019 13:04-0500 Height 182.9 cm [facility] 10-02-2019 13:04-0500 Respiratory Rate 16 /min [facility] Encounters Encounter Date Encounter Type Care Provider Facility Start: 04-24-2025 End: 04-24-2025 ambulatory Asaf TOR[facility] Start: 03-11-2025 End: 03-11-[address] Richard Hogan MD [facility] Work Phone: Start: 03-11-2025 End: 03-11-[address] Chilango Welsh MD Work Phone: -[facility] Start: 03-10-2025 End: 03-10-2025 Orders Only Asaf Torres MD Work Phone: [facility] Comment on above: Arthritis of right h ip (Primary Dx) Start: 02-13-2025 ambulatory CHILANGO WELSH [facility] Start: 02-11-2025 End: 02-11-2025 Office outpatient visit 10 minutes Asaf Torres MD Work Phone: [facility] Comment on above: Complete tear of rig ht rotator cuff, unspecified whether traumatic (Primary Dx); Arthritis of right hip Start: 02-11-2025 End: 02-11-2025 ambulatory Nina TORRES Facility:[facility] Start: 02-09-2025 End: 02-09-2025 Orders Only Asaf Torres MD Work Phone: [facility] Comment on above: Right hip pain (Prim hugo Dx) Start: 02-09-2025 ambulatory CHILANGO WELSH [facility] Start: 02-06-2025 End: 02-06-2025 Subsequent hospital visit by physician [facility] Comment on above: Pain in right should er Start: 02-06-2025 End: 02-06-2025 ambulatory Nina TORRES [facility] Start: 02-04-2025 End: 02-04-2025 Office outpatient visit 10 minutes Asaf Torres MD Work Phone: [facility] Comment on above: Right shoulder pain, unspecified chronicity (Primary Dx); Tear of right rotator cuff, unspecified tear extent, unspecified whether traumatic Start: 02-04-2025 End: 02-04-2025 ambulatory Nina TORRES Facility:[facility] Start: 02-04-2025 End: 02-04-[address] Chilango Welsh MD Work Phone: [facility] Work Phone: Start: 02-04-2025 End: 02-04-[address] 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 Start: 02-02-2025 ambulatory MAVIS MANZO Facility :[facility] Start: 01-27-2025 End: 01-28-2025 Orders Only Asaf Torres MD Work Phone: [facility] Comment on above: Right shoulder pain, unspecified chronicity (Primary Dx) Start: 12-25-2024 ambulatory MAVIS MANZO Facility :[facility] Start: 12-25-2024 End: 12-25-2024 Office outpatient visit 25 minutes Mavis Manzo MD Work Phone: [facility] [place] Comment on above: Ocular hypertension of left eye (Primary Dx); Glaucoma suspect of both eyes Start: 12-22-2024 End: 12-22-2024 ambulatory LUZ ELENA CERVANTES Facility:[facility] Start: 12-22-2024 ambulatory NORA ROSA Facilit y:[facility] Start: 12-22-2024 End: 12-22-2024 Subsequent hospital visit by physician Nora Rosa [employer] MECH[employer]IC[employer]CYCLING OPERATOR Work Phone: Department of Radiology Comment on above: Arrived Start: 12-22-2024 ambulatory NORA ROSA Facilit y:[facility] Start: 12-22-2024 End: 12-22-2024 Subsequent hospital visit by physician Nora Rosa [employer] EQU[employer]MENT MECHANIC-RECYCLING OPERATOR Work Phone: [facility] [place] Start: 12-17-2024 End: 12-17-2024 ambulatory NILO AVILA II Facility:[facility] Start: 12-17-2024 End: 12-17-2024 Patient encounter procedure Nilo Avila OD Work Phone: Optometry Comment on above: Myopic macular degen eration (Primary Dx); Vitreous floaters of both eyes; Binocular vision disorder; Pseudophakia, both eyes; Glaucoma suspect of both eyes; Ocular hypertension, bilateral; Regular astigmatism, bilateral; Presbyopia Start: 12-15-2024 ambulatory CHILANGO WELSH Facility: [facility] Start: 12-05-2024 End: 12-05-2024 Office outpatient visit 25 minutes Elsa Chung MD Work Phone: [facility] [place] Comment on above: 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 (Primary Dx); Ocular hypertension of left eye Start: 12-05-2024 ambulatory SELF SELF Facility:[facility] Start: 10-20-2024 End: 10-20-2024 Emergency department patient visit HENSLEY BARRY [facility] Start: 10-09-2024 End: 10-09-2024 ambulatory CHILANGO WELSH [facility] Start: 10-09-2024 End: 10-09-2024 Office outpatient visit 10 minutes Asaf Torres MD Work Phone: [facility] Comment on above: Arthritis of both kn ees (Primary Dx) Start: 10-07-2024 End: 10-07-2024 ambulatory Chilango Welsh Facility:[facility] Start: 09-29-2024 End: 09-29-2024 ambulatory Chilango Welsh Facility:[facility] Start: 08-20-2024 End: 08-20-2024 ambulatory Asaf TORRES [facility] Start: 08-20-2024 End: 08-20-2024 Office outpatient visit 10 minutes Asaf Torres MD Work Phone: [facility] Comment on above: Arthritis of both kn ees (Primary Dx) Start: 08-20-2024 End: 08-20-2024 Emergency department patient visit NATHAN ISADORA [facility] Start: 08-12-2024 End: 08-12-2024 ambulatory Chilango Welsh Facility:[facility] Start: 08-06-2024 End: 08-06-2024 ambulatory Chilango Welsh Facility:[facility] Start: 08-05-2024 End: 08-05-2024 ambulatory Chilango Welsh Facility:[facility] Start: 06-09-2024 ambulatory Chilango Welsh Facilit y:[facility] Start: 06-09-2024 ambulatory Chilanog Welsh Facilit y:[facility] Start: 06-09-2024 End: 06-09-2024 ambulatory Richard Hogan Facility:[facility] Start: 06-06-2024 End: 06-06-2024 Office outpatient visit 15 minutes Alvina Fang MD Work Phone: [facility] Comment on above: PCO (posterior capsu lar opacification), right (Primary Dx); Pseudophakia Start: 06-06-2024 End: 06-06-2024 Patient encounter procedure Elsa Chung MD Work Phone: [facility] Comment on above: 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); 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 Start: 06-06-2024 ambulatory CHILANGO WELSH Facility: [facility] Start: 05-15-2024 End: 05-15-2024 ambulatory Chilango Zoë Blaise Facility:[facility] Start: 05-14-2024 ambulatory Chilango oZë Blaise Facilit y:[facility] Start: 05-01-2024 ambulatory Chilango Camp Blaise Facilit y:[facility] Start: 05-01-2024 End: 05-01-2024 ambulatory Chilango Nupur Dinora CELIS Facility:[facility] Start: 04-23-2024 End: 05-03-2024 ambulatory Chilango Zoë Blaise Facility:[facility] Start: 04-02-2024 End: 04-02-2024 ambulatory Chilango Zoë Blaise Facility:[facility] Start: 03-26-2024 End: 03-26-2024 Office outpatient visit 25 minutes Elsa Chung MD Work Phone: [facility] [place] Comment on above: 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); 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 Start: 03-26-2024 ambulatory CHILANGO WELSH Facility: [facility] Start: 02-20-2024 End: 02-20-2024 Office outpatient visit 10 minutes Asaf Torres MD Work Phone: [facility] Comment on above: Primary osteoarthrit is of left knee (Primary Dx) Start: 01-21-2024 End: 01-21-2024 ambulatory TAMRA HARO Facility:[facility] Start: 01-21-2024 End: 01-21-2024 Patient encounter procedure Tamra Haro MD Work Phone: Ophthalmology Comment on above: 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 Chilango Welsh Work Phone: [facility] Work Phone: Start: 12-31-2023 End: 01-01-[address] Chilango Welsh Work Phone: [facility] Work Phone: Start: 12-26-[address] Chilango Welsh Work Phone: [facility] Work Phone: Start: 12-21-2023 Non-patient / Non-visit Dr. Tayler Welsh Work Phone: [facility] Start: 12-21-2023 End: 12-21-[address] Chilango Welsh Work Phone: [facility] Work Phone: Start: 12-21-2023 End: 12-21-[address] Chilango Welsh Work Phone: [facility] Work Phone: Start: 12-19-2023 End: 12-19-2023 Office outpatient new 45 minutes Elsa Chung MD Work Phone: [facility] Comment on above: Scotoma involving ce ntral area in visual field, unspecified laterality (Primary Dx) Start: 12-17-2023 End: 12-17-2023 Subsequent hospital visit by physician Gokul CASTILLO Work Phone: [facility] Comment on above: Arrived Start: 12-10-2023 End: 12-10-2023 Office outpatient new 45 minutes Ramses Chau MD Work Phone: [facility] Comment on above: Aneurysm of vein (Pr imary Dx) Start: 12-03-2023 End: 12-03-[address] Chilango Welsh Work Phone: [facility] Work Phone: Start: 11-26-2023 Telephone encounter Nilo Nupur Octavia castaneda OD Work Phone: Optometry Comment on above: Patient Question Start: 11-23-2023 ambulatory GAGE Wheeler Carlos Start: 11-22-2023 Non-patient / Non-visit Dr. Tayler Welsh Work Phone: [facility] Work Phone: Start: 11-13-2023 End: 11-19-2023 Evaluation and management of inpatient Ani Ríos MD (John) Work Phone: [phone] Start: 10-20-2023 Non-patient / Non-visit Dr. Tayler Welsh Work Phone: [facility] Work Phone: Start: 10-20-2023 End: 10-23-2023 Evaluation and management of inpatient Shoaib Dubon MD Work Phone: [phone] Comment on above: Chest pain Start: 10-19-2023 Non-patient / Non-visit Dr. Tayler Welsh Work Phone: [facility] Start: 10-18-2023 Non-patient / Non-visit Dr. Tayler Welsh Work Phone: [facility] Start: 10-18-2023 End: 10-19-2023 Evaluation and management of inpatient [facility] Work Phone: Start: 10-17-2023 End: 10-17-[address] Chilango Welsh Work Phone: [facility] Work Phone: Start: 10-17-2023 End: 10-17-2023 Patient encounter procedure [facility] Start: 09-26-2023 End: 09-26-2023 Office outpatient visit 10 minutes Asaf Torres MD Work Phone: [facility] Comment on above: Arthritis of both kn ees (Primary Dx) Start: 08-07-2023 End: 08-07-2023 ambulatory [facility] Work Phone: Start: 08-07-2023 End: 08-07-2023 Patient encounter procedure [facility] Start: 10-18-2022 End: 10-18-2022 Patient encounter procedure Asaf Torres MD Work Phone: [facility] Comment on above: Arthritis of both kn ees (Primary Dx) Start: 08-19-2022 End: 08-19-2022 ambulatory [facility] Work Phone: Start: 08-19-2022 End: 08-19-2022 Patient encounter procedure [facility] Start: 08-02-2022 End: 08-02-2022 ambulatory [facility] Work Phone: Start: 08-02-2022 End: 08-02-2022 Patient encounter procedure [facility] Start: 04-20-2022 Documentation procedure Roma Palomares MA [facility] Start: 04-19-2022 End: 04-19-2022 Office outpatient visit 10 minutes Asaf Torres MD Work Phone: [facility] Comment on above: Traumatic tear of le ft rotator cuff, unspecified tear extent, subsequent encounter (Primary Dx) Start: 04-13-2022 Documentation procedure Roma Palomares MA [facility] Start: 04-12-2022 Patient encounter procedure [facility] Start: 02-28-2022 Orders Only Asaf Torres MD Work Phone: [facility] Comment on above: Traumatic tear of le ft rotator cuff, unspecified tear extent, initial encounter (Primary Dx) Start: 02-25-2022 End: 02-25-2022 Emergency department patient visit Bety Tanner [facility] Start: 02-22-2022 End: 02-22-2022 Office outpatient visit 10 minutes Asaf Torres MD Work Phone: [facility] Comment on above: Traumatic tear of le ft rotator cuff, unspecified tear extent, initial encounter (Primary Dx) Start: 02-21-2022 End: 02-21-2022 Emergency department patient visit Maya Brewer [facility] Start: 01-25-2022 End: 01-25-2022 Postop follow up visit related to original px Asaf Torres MD Work Phone: [facility] Comment on above: Traumatic tear of le ft rotator cuff, unspecified tear extent, initial encounter (Primary Dx) Start: 01-02-2022 Orders Only Asaf Torres MD Work Phone: [facility] Comment on above: Traumatic tear of le ft rotator cuff, unspecified tear extent, initial encounter (Primary Dx) Start: 12-30-2021 End: 12-30-2021 Postop follow up visit related to original px Asaf Torres MD Work Phone: [facility] Comment on above: Traumatic tear of le ft rotator cuff, unspecified tear extent, initial encounter (Primary Dx) Start: 12-15-2021 End: 12-15-2021 Patient encounter procedure Primo Tineo MD Work Phone: Ophthalmology Comment on above: Epiretinal membrane (ERM) of right eye (Primary Dx); Optic cupping of both eyes; High myopia, bilateral; Pseudophakia of both eyes Start: 12-05-2021 Documentation procedure Roma Palomares MA [facility] Start: 12-01-2021 Orders Only Asaf Torres MD Work Phone: [facility] Comment on above: Traumatic tear of le ft rotator cuff, unspecified tear extent, initial encounter (Primary Dx) Start: 11-30-2021 End: 11-30-2021 Postop follow up visit related to original px Asaf Torres MD Work Phone: [facility] Comment on above: Traumatic tear of le ft rotator cuff, unspecified tear extent, initial encounter (Primary Dx) Start: 11-04-2021 Documentation procedure Roma Palomares MA [facility] Start: 11-02-2021 Documentation procedure Roma Palomares MA [facility] Start: 10-31-2021 End: 10-31-2021 Orders Only Asaf Torres MD Work Phone: [facility] Comment on above: Exposure to SARS-ass ociated coronavirus (Primary Dx) Start: 10-28-2021 End: 10-28-2021 [facility] Start: 10-25-2021 Orders Only Asaf Torres MD Work Phone: [facility] Comment on above: Exposure to SARS-ass ociated coronavirus (Primary Dx) Start: 10-17-2021 Orders Only Asaf Torres MD Work Phone: [facility] Comment on above: Left shoulder pain, unspecified chronicity (Primary Dx) Start: 10-12-2021 End: 10-12-2021 Office outpatient visit 10 minutes Asaf Torres MD Work Phone: [facility] Comment on above: Arthritis of both kn ees (Primary Dx) Start: 08-17-2021 End: 08-17-2021 Office outpatient visit 10 minutes Asaf Torres MD Work Phone: [facility] Comment on above: Arthritis of both kn ees (Primary Dx) Start: 08-15-2021 Orders Only Asaf Torres MD Work Phone: [facility] Comment on above: Left knee pain, unsp ecified chronicity (Primary Dx) Start: 11-04-2020 End: 11-04-2020 Orders Only Mariama Solis Work Phone: [facility] Start: 12-18-2019 End: 12-18-2019 Patient encounter procedure JUAN MARS Facility:[facility] Start: 10-02-2019 End: 10-02-2019 Patient encounter procedure Asaf Torres Work Phone: [facility] Comment on above: Right knee pain, uns pecified chronicity (Primary Dx); Arthritis of both knees Start: 03-21-2017 End: 03-21-2017 Ambulatory Asaf TORRES [facility] Procedures Date Procedure Procedure Detail Performing Clinician Start: 02-06-2025 Mri any jt upper ext remity w/o contrast matrl Nina Torres MD Work Phone: Start: 02-04-2025 Prostate specific an tigen measurement Dr. Chilango Welsh MD Work Phone: Comment on above: This test was perfor med using the [employer] tPSA method. Measured values of a patient sample can vary depending on the testing procedure used. PSA values determined on patient samples by different testing procedures cannot be used interchangeably. If there is a change in PSA assays while monitoring therapy, sequential testing should be performed to confirm baseline values. Start: 12-22-2024 Ct angiography chest w/contrast/noncontrast Nora Rosa GROUND EQUIPMENT MECHANIC-RECYCLING OPERATOR Work Phone: Start: 12-22-2024 Creatinine blood Katerina Rosa GROUND EQUIPMENT MECHANIC-RECYCLING OPERATOR Work Phone: Start: 12-22-2024 Echo tthrc r-t 2d w/wom-mode compl spec&colr d Nora Rosa GROUND EQUIPMENT MECHANIC-RECYCLING OPERATOR Work Phone: Start: 12-05-2024 End: 12-05-2024 Computerized ophthalmic imaging optic nerve Elsa Chung MD Work Phone: Start: 10-15-2024 End: 10-15-2024 Arthrocentesis aspir&/inj major jt/bursa w/o us Asaf Torres MD Work Phone: Start: 08-21-2024 End: 08-21-2024 Arthrocentesis aspir&/inj major jt/bursa w/o us Asaf Torres MD Work Phone: Start: 06-06-2024 Post-cataract laser surgery Alvina Fang MD Work Phone: Start: 06-06-2024 End: 06-06-2024 Fundus photography w/interpretation & report Elsa Chung MD Work Phone: Start: 03-26-2024 Computerized ophthal danette imaging optic nerve Elsa Chung MD Work Phone: Start: 02-21-2024 Arthrocentesis aspir &/inj major jt/bursa w/o us Asaf Torres MD Work Phone: Start: 12-19-2023 Fundus photography w/interpretation & report Elsa Chung MD Work Phone: Start: 11-18-2023 End: 11-18-2023 Mri brain brain stem w/o w/contrast material Pasha Malhotra PA-C Work Phone: Start: 11-18-2023 C-reactive protein Je Malhotra PA-C Work Phone: Start: 11-18-2023 Sedimentation rate r bc automated Pasha Malhotra PA-C Work Phone: Start: 11-18-2023 Radiologic exam ches t single view Fracisco Andrade MD, PhD Work Phone: Start: 11-18-2023 Antibody screen Ani machado MD Work Phone: Start: 11-18-2023 Blood typing serologic abo Ani Ríos MD (John) Work Phone: Start: 11-18-2023 Assay of magnesium Sherin Andrade MD, PhD Work Phone: Start: 11-17-2023 CONTINUOUS CARDIAC MONITORING STRIP Other Other Start: 11-17-2023 Radiologic exam ches t 2 views Pasha Malhotra PA-C Work Phone: Start: 11-17-2023 Radiologic exam ches t single view Gokul Cornejo PAC Work Phone: Start: 11-17-2023 Assay of magnesium Sherin Andrade MD, PhD Work Phone: Start: 11-16-2023 Glucose measurement, blood Ani Ríos MD (John) Work Phone: Start: 11-16-2023 Glucose measurement, blood Ani Ríos MD (John) Work Phone: Start: 11-16-2023 Glucose measurement, blood Ani Ríos MD (John) Work Phone: Start: 11-16-2023 Echo tthrc r-t 2d w/wom-mode compl spec&colr d Gokul Cornejo PAC Work Phone: Start: 11-16-2023 Glucose measurement, blood Ani Ríos MD (John) Work Phone: Start: 11-16-2023 Radiologic exam ches t single view Fracisco Andrade MD, PhD Work Phone: Start: 11-16-2023 Glucose measurement, blood Ani Ríos MD (John) Work Phone: Start: 11-16-2023 Glucose measurement, blood Ani Ríos MD (John) Work Phone: Start: 11-16-2023 Assay of magnesium Sherin Andrade MD, PhD Work Phone: Start: 11-15-2023 Glucose measurement, blood Ani Ríos MD (John) Work Phone: Start: 11-15-2023 EXTRA MICRO Gokul Elmore Danay maxim PAC Work Phone: Start: 11-15-2023 URINALYSIS REFLEX TO CULTURE Gokul Cornejo PAC Work Phone: Start: 11-15-2023 Urnls dip stick/tabl et reagent auto microscopy Gokul Cornejo PAC Work Phone: Start: 11-15-2023 CONTINUOUS CARDIAC MONITORING STRIP Other Other Start: 11-15-2023 Glucose measurement, blood Ani Ríos MD (John) Work Phone: Start: 11-15-2023 Glucose measurement, blood Ani Ríos MD (John) Work Phone: Start: 11-15-2023 Radiologic exam ches t single view Fracisco Andrade MD, PhD Work Phone: Start: 11-15-2023 Antibody screen Ani machado MD Work Phone: Start: 11-15-2023 End: 11-15-2023 Assay of magnesium Fracisco Andrade MD, PhD Work Phone: Start: 11-15-2023 Hepatic function panel Gokul Cornejo PAC Work Phone: Start: 11-14-2023 Glucose measurement, blood Ani Ríos MD (John) Work Phone: Start: 11-14-2023 Assay of magnesium Sherin Andrade MD, PhD Work Phone: Start: 11-14-2023 Glucose measurement, blood Ani Ríos MD (John) Work Phone: Start: 11-14-2023 Glucose measurement, blood Ani Ríos MD (John) Work Phone: Start: 11-14-2023 CONTINUOUS CARDIAC MONITORING STRIP Other Other Start: 11-14-2023 IP CONSULT TO SPEECH THERAPY Nick Calderon PAC Work Phone: Start: 11-14-2023 Glucose measurement, blood Ani Ríos MD (John) Work Phone: Start: 11-14-2023 Glucose measurement, blood Ani Ríos MD (John) Work Phone: Start: 11-14-2023 Radiologic exam ches t single view Fracisco Andrade MD, PhD Work Phone: Start: 11-14-2023 Assay of magnesium Sherin Andrade MD, PhD Work Phone: Start: 11-14-2023 Glucose measurement, blood Ani Ríos MD (John) Work Phone: Start: 11-13-2023 End: 11-14-2023 Glucose measurement, blood Ani Ríos MD (John) Work Phone: Start: 11-13-2023 Glucose measurement, blood Ani Ríos MD (John) Work Phone: Start: 11-13-2023 Assay of magnesium Sherin Andrade MD, PhD Work Phone: Start: 11-13-2023 Blood gases any comb ination ph pco2 po2 co2 hco3 Ani Ríos MD (John) Work Phone: Start: 11-13-2023 Glucose measurement, blood Ani Ríos MD (John) Work Phone: Start: 11-13-2023 End: 11-13-2023 Glucose measurement, blood Ani Ríos MD (John) Work Phone: Start: 11-13-2023 Blood count platelet automated Fracisco Andrade MD, PhD Work Phone: Start: 11-13-2023 End: 11-13-2023 Transfusion of cryoprecipitate John Birmingham MD Work Phone: Start: 11-13-2023 End: 11-13-2023 Blood gases any combination ph pco2 po2 co2 hco3 Ani Ríos MD (John) Work Phone: Start: 11-13-2023 Glucose measurement, blood Ani Ríos MD (John) Work Phone: Start: 11-13-2023 Radiologic exam abdo men 1 view Fracisco Andrade MD, PhD Work Phone: Start: 11-13-2023 Radiologic exam ches t single view Fracisco Andrade MD, PhD Work Phone: Start: 11-13-2023 Glucose measurement, blood Ani Ríos MD (John) Work Phone: Start: 11-13-2023 Assay of magnesium Sherin Andrade MD, PhD Work Phone: Start: 11-13-2023 Blood gases any comb ination ph pco2 po2 co2 hco3 Fracisco Andrade MD, PhD Work Phone: Start: 11-13-2023 MIN AURIS SCREEN BY PCR Fracisco Andrade MD, PhD Work Phone: Start: 11-13-2023 THERESE SIGMA Chen We rnke DO Work Phone: Start: 11-13-2023 Calcium ionized Ani Ríos MD ( John) Work Phone: Start: 11-13-2023 End: 11-13-2023 TRANSFUSE OR CRYOPRECIPITATE POOLS Liberty Feliciano MD Work Phone: Start: 11-13-2023 ACTIVATED CLOTTING TIME,POC Ani Ríos MD (John) Work Phone: Start: 11-13-2023 End: 11-13-2023 Calcium ionized Ani melendrez MD (John) Work Phone: Start: 11-13-2023 End: 11-13-2023 ACTIVATED CLOTTING TIME,POC Ani Ríos MD (John) Work Phone: Start: 11-13-2023 End: 11-13-2023 Calcium ionized Ani melendrez MD (John) Work Phone: Start: 11-13-2023 End: 11-13-2023 ACTIVATED CLOTTING TIME,POC Ani Ríos MD (John) Work Phone: Start: 11-13-2023 End: 11-13-2023 Calcium ionized Ani melendrez MD (John) Work Phone: Start: 11-13-2023 End: 11-13-2023 ACTIVATED CLOTTING TIME,POC Ani Ríos MD (John) Work Phone: Start: 11-13-2023 ECHOCARDIOGRAM TRANSESOPHAGEAL (AARON) IN OR - IMAGES Chen Smyth DO Work Phone: Start: 11-13-2023 ACTIVATED CLOTTING TIME,POC Ani Ríos MD (John) Work Phone: Start: 11-13-2023 Calcium ionized Ani Ríos MD ( John) Work Phone: Start: 11-13-2023 End: 11-13-2023 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 Ani Ríos MD (John) Work Phone: Start: 11-13-2023 Glucose measurement, blood Ani Ríos MD (John) Work Phone: Start: 11-13-2023 ABORH TYPE RECONFIRMATION Ashlyn Rizvi MD, MBBS Work Phone: Start: 10-29-2023 PREPARE TO TRANSFUSE CRYOPRECIPITATE POOLS John Birmingham MD Work Phone: Start: 10-29-2023 PREPARE TO TRANSFUSE OR CRYOPRECIPITATE POOLS Liberty Feliciano MD Work Phone: Start: 10-29-2023 PREPARE TO TRANSFUSE OR RED BLOOD CELLS Ani Ríos MD (John) Work Phone: Start: 10-23-2023 Assay of magnesium Vict kelsie Willett MD Work Phone: Start: 10-22-2023 CONTINUOUS CARDIAC MONITORING STRIP Other Other Start: 10-22-2023 Spmtry w/vc expirato ry valdemar w/wo mxml vol vntj Randy Lees MD Work Phone: Start: 10-22-2023 End: 10-22-2023 ACT* LOW RANGE, POC Emilee Galvan MD Work Phone: Start: 10-22-2023 End: 10-22-2023 ACT* LOW RANGE, POC Emilee Galvan MD Work Phone: Start: 10-22-2023 Cath placement & njx coronary art angio img s&i Ksihore Best MD, PhD Work Phone: Start: 10-22-2023 End: 10-22-2023 ACT* LOW RANGE, POC Shoaib Camacho Work Phone: Start: 10-22-2023 Cardiac catheterization Kishore Best MD, PhD Work Phone: Start: 10-22-2023 Thromboplastin time partial plasma/whole blood Anika Willett MD Work Phone: Start: 10-22-2023 Thromboplastin time partial plasma/whole blood Anika Willett MD Work Phone: Start: 10-22-2023 Assay of magnesium Vict oria Jim Willett MD Work Phone: Start: 10-21-2023 CONTINUOUS CARDIAC MONITORING STRIP Other Other Start: 10-21-2023 Thromboplastin time partial plasma/whole blood Anika Willett MD Work Phone: Start: 10-21-2023 Mri abdomen w/o & w/contrast material Shaun Orozco MD Work Phone: Start: 10-21-2023 CONTINUOUS CARDIAC MONITORING STRIP Other Other Start: 10-21-2023 Iadna s aureus ampli fied probe tq Randy Lees MD Work Phone: Start: 10-21-2023 End: 10-21-2023 Assay of ferritin Shaun Orozco MD Work Phone: Start: 10-21-2023 Lipid panel Randy ann MD Work Phone: Start: 10-21-2023 Lipid 1996 panel - S mason or Plasma Shoaib Dubon MD Work Phone: Start: 10-21-2023 Thromboplastin time partial plasma/whole blood Anika Willett MD Work Phone: Start: 10-20-2023 CONTINUOUS CARDIAC MONITORING STRIP Other Other Start: 10-20-2023 Thromboplastin time partial plasma/whole blood Anika Willett MD Work Phone: Start: 10-20-2023 Thromboplastin time partial plasma/whole blood Anika Willett MD Work Phone: Start: 10-20-2023 Ct angio abd&plvis c ntrst mtrl w/wo cntrst img Randy Lees MD Work Phone: Start: 10-20-2023 CONTINUOUS CARDIAC MONITORING STRIP Other Other Start: 10-20-2023 Assay of magnesium Vict kelsie Willett MD Work Phone: Start: 09-26-2023 End: 09-26-2023 Arthrocentesis aspir&/inj major jt/bursa w/o us Asaf Torres MD Work Phone: Start: 10-18-2022 Arthrocentesis aspir &/inj major jt/bursa w/o us Asaf Torres MD Work Phone: Start: 08-19-2022 US scan of thyroid Start: 12-15-2021 Computerized ophthal danette imaging retina Primo Tineo MD Work Phone: Start: 10-12-2021 Arthrocentesis aspir &/inj major jt/bursa w/o us Asaf Torres MD Work Phone: Start: 12-16-2021 Arthrocentesis aspir &/inj major jt/bursa w/o us Asaf Torres MD Work Phone: Start: 10-04-2019 End: 10-04-2019 Arthrocentesis Asaf Torres Work Phone: Plan of Treatment Date Care Activity Detail Author Start: 2034 Respiratory Syncytial Virus Immunization: Risk, 60-74 Risk, or 75+ (1 - 1-dose 75+ series) Respiratory Syncytial Virus Immunization: Risk, 60-74 Risk, or 75+ (1 - 1-dose 75+ series) [facility] Start: 2034 RSV VACCINE (1 - 1-dose 75+ series) RSV VACCINE (1 - 1-dose 75+ series) [facility] Start: 12-17-2029 DTaP/Tdap/Td Vaccines (3 - Td or Tdap) DTaP/Tdap/Td Vaccines (3 - Td or Tdap) [facility] Start: 12-17-2029 Tetanus vaccination [facility] Start: 12-17-2029 Urine microalbumin profile DTaP,Tdap,Td Vaccine (3 - Td or Tdap) [facility] Start: 10-21-2028 Lipid panel [facility] Start: 02-06-2028 Tetanus vaccination [facility] Start: 08-20-2027 Diabetes Screening Diabetes Screening [facility] Start: 11-17-2026 Diabetes Screening Diabetes Screening [facility] Start: 12-23-2025 End: 12-23-2025 Patient encounter procedure 12/23/2025 8:30 AM EDT Office Visit [facility] [address] [place] [address] Nilo Avila II, OD [address] [place] [address] Eye exam/MEdicare/Supplemen t Optometry Comment on above: Eye exam/MEdicare/Supplement Start: 12-14-2025 End: 12-14-2025 Patient encounter procedure Cardiovascular [facility] Start: 09-07-2025 End: 09-07-2025 Patient encounter procedure 09/07/2025 8:30 AM EST Office Visit [facility] [address] [place] [address] Elsa Chung MD [address] [place], [place] [id number] [facility] Start: 06-11-2025 End: 06-11-2025 Patient encounter procedure 06/11/2025 10:00 AM EDT Office Visit [facility] [address] [place], [place] [id number] Mavis Manzo MD [address] [place] [address] [facility] Start: 05-04-2025 Influenza vaccination [facility] Start: 04-22-2025 End: 04-22-2025 Patient encounter procedure 04/22/2025 12:45 PM EDT Office Visit [facility] [address] [facility] [place] [address] Asaf Torres MD [address] [place] [address] [facility] Start: 04-03-2025 End: 04-03-2025 Admission to same day surgery center 04/03/2025 6:45 AM EDT - 04/03/2025 8:20 AM EDT Surgery [facility] [address] [place] [phone] Asaf Torres MD [address] [place] [address] RIGHT SHOULDER ARTHROSCOPY WITH ROTATOR CUFF REPAIR [facility] Comment on above: RIGHT SHOULDER ARTHROSCOPY WITH ROTATOR CUFF REPAIR Start: 04-03-2025 End: 04-03-2025 Arthroscopy shoulder dx w/wo synovial biopsy spx ARTHROSCOPY SHOULDER Complete tear of right rotator cuff, unspecified whether traumatic 04/03/2025 6:45 AM EDT [facility] Start: 04-03-2025 Subsequent hospital visit by physician 04/03/2025 6:45 AM EDT Hospital Encounter [facility] [address] [facility] [place] [address] Asaf Torres MD [address] [place] [address] [facility] Start: 02-11-2025 End: 02-11-2025 Patient encounter procedure 02/11/2025 4:00 PM EDT Office Visit [facility] [address] [place] [address] Asaf Torres MD [address] [place] [address] [facility] Start: 02-04-2025 End: 02-04-2025 Patient encounter procedure 02/04/2025 3:45 PM EDT Office Visit [facility] [address] [place] [address] Asaf Torres MD [address] [place] [address] [facility] Start: 02-02-2025 End: 02-02-2025 Patient encounter procedure 02/02/2025 1:00 PM EDT Office Visit [facility] [address] [place] [address] Mavis Manzo MD [address] [place] [address] [facility] Start: 12-25-2024 End: 01-12-2025 Gonioscopy separate procedure MN GONIOSCOPY SEPARATE PROCEDURE [place] Charge Routine Ocular hypertension of left eye Expected: 12/25/2024, Expires: [facility] Comment on above: Expected: 12/25/2024, Expires: Start: 12-25-2024 End: 01-12-2025 Ophthalmic us dx corneal pachymetry uni/bi PACHYMETRY-OU [place] Charge Routine Ocular hypertension of left eye Expected: 12/25/2024, Expires: 01/12/2025 [facility] Comment on above: Expected: 12/25/2024, Expires: Start: 12-25-2024 End: 12-25-2024 Patient encounter procedure 12/25/2024 10:30 AM EDT Office Visit [facility] [address] [place] [address] Mavis Manzo MD [address] [place] [address] [facility] Start: 12-22-2024 End: 12-22-2024 Patient encounter procedure [facility] Start: 12-15-2024 End: 12-15-2024 Patient encounter procedure [facility] Start: 12-05-2024 End: 12-05-2024 Patient encounter procedure 12/05/2024 8:30 AM EDT Office Visit [facility] [address] [place] [address] Elsa Chung MD [address] [place], [place] [id number] [facility] Start: 2024 Advance Directive Discussion Advance Directive Discussion [facility] Start: 2024 Fall risk assessment Falls Risk Assessment [facility] Start: 07-14-2024 End: 07-14-2024 Patient encounter procedure 07/14/2024 9:15 AM EST Office Visit [facility] [address] [place] [address] Tamra Haro MD [address] [place] [address] VF/FP Glaucoma suspect . Ophthalmology Comment on above: VF/FP Glaucoma suspect . Start: 05-04-2024 COVID-19 VACCINE ( season) COVID-19 VACCINE () [facility] Start: 05-04-2024 COVID-19 Vaccine ( season) COVID-19 Vaccine () [facility] Start: 05-04-2024 Influenza vaccination [facility] Start: 03-26-2024 End: 03-26-2024 Patient encounter procedure 03/26/2024 8:30 AM EDT Office Visit [facility] [address] [place] [address] Elsa Chung MD 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 [place] [address] [facility] Start: 12-17-2023 End: 12-17-2023 Patient encounter procedure 12/17/2023 3:00 PM EDT Office Visit [facility] [address] [place] [phone] Gokul Cornejo, PAC [address] [place] [address] [facility] Start: 12-17-2023 End: 12-17-2023 ambulatory Cardiovascular Imagi ng Lab [facility] Start: 12-17-2023 Subsequent hospital visit by physician 12/17/2023 2:20 PM EDT Hospital Encounter Cardiovascular Imaging Lab [facility] [address] [place] [phone] Gokul Cornejo, PAC [address] [place] [address] Cardiovascular Imaging Lab [facility] Start: 11-15-2023 End: 11-14-2024 CT angiography [facility] Start: 11-15-2023 End: 11-14-2024 XR Chest PA and Lateral [facility] Start: 11-13-2023 End: 11-13-2023 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 REPAIR ASCENDING AORTA ANEURYSM W/ VALVE-SPARING ROOT REPAIR OR SUSPENSION Aneurysm, ascending aorta 11/13/2023 7:00 AM EDT [facility] Start: 11-13-2023 End: 11-13-2023 Evaluation and management of inpatient [facility] Comment on above: Aneurysm, ascending aorta REPAIR ASCENDING AOR TA ANEURYSM W/ VALVE-SPARING ROOT REPAIR OR SUSPENSION Start: 10-29-2023 End: 10-29-2023 Patient encounter procedure 10/29/2023 11:00 AM EST [facility] [address] [place] [phone] Ani Ríos (Chilango)MD [address] [place] [phone] [facility] Start: 10-19-2023 Notification of physician [facility] Start: 10-19-2023 Patient education [facility] Start: 10-19-2023 Provision of activity privileges [facility] Start: 10-19-2023 Pulse taking [facility] Start: 10-19-2023 Taking patient vital signs [facility] Start: 10-19-2023 Wound care [facility] Start: 10-19-2023 [facility] Start: 10-19-2023 Patient discharge [facility] Start: 10-18-2023 [facility] Start: 10-18-2023 Catheterization of vein [facility] Start: 10-18-2023 Medication not administered [facility] Start: 10-18-2023 Notification of physician [facility] Start: 10-18-2023 Preoperative care [facility] Start: 10-18-2023 [facility] Start: 10-18-2023 Following clinical pathway protocol [facility] Start: 10-18-2023 Transfusion of blood product [facility] Start: 10-18-2023 Assessment of risk of venous thromboembolism [facility] Start: 10-18-2023 Insertion of catheter into peripheral vein [facility] Start: 10-18-2023 Measuring intake and output [facility] Start: 10-18-2023 Oxygen therapy [facility] Start: 10-18-2023 Patient referral to dietitian [facility] Start: 10-18-2023 Providing care according to standard [facility] Start: 10-18-2023 Provision of activity privileges [facility] Start: 10-18-2023 Referral to headmaster/mistress [facility] Start: 10-18-2023 Referral to service [facility] Start: 10-18-2023 Tobacco use cessation education [facility] Start: 10-18-2023 [facility] Start: 10-18-2023 End: 10-18-2023 Hospital admission, emergency, from emergency room, medical nature [facility] Start: 10-18-2023 Verification routine [facility] Start: 10-18-2023 Admission procedure [facility] Start: 09-03-2023 Behavioral Health Screening Behavioral Health Screening [facility] Start: 05-04-2023 COVID-19 VACCINE () COVID-19 VACCINE () [facility] Start: 05-04-2023 Influenza vaccination [facility] Start: 05-04-2023 [facility] Start: 06-21-2022 End: 06-21-2022 Patient encounter procedure 06/21/2022 Office Visit Orthopedic Surgery Asaf Torres MD [facility] [place] [address] [facility] Start: 05-04-2022 Influenza vaccination Sequential Influenza Vaccine (#1) [facility] Start: 04-19-2022 End: 04-19-2022 Patient encounter procedure 04/19/2022 Office Visit Orthopedic Surgery Asaf Torres MD [address] [place] [id number] [facility] Start: 01-25-2022 End: 01-25-2022 Patient encounter procedure 01/25/2022 Office Visit Orthopedic Surgery Asaf Torres MD [address] [place] [id number] [facility] Start: 11-30-2021 End: 11-30-2021 Patient encounter procedure 11/30/2021 Office Visit Orthopedic Surgery Asaf Torres MD [address] [place] [address] [place] [address] [facility] Start: 11-08-2021 End: 11-08-2021 Admission to same day surgery center 11/08/2021 Surgery Asaf Torres MD [facility] [place] [address] LEFT SHOULDER ARTHROSCOPY WITH ROTATOR CUFF REPAIR [facility] Comment on above: LEFT SHOULDER ARTHROSCOPY WITH ROTATOR C UFF REPAIR Start: 11-08-2021 End: 11-08-2021 ARTHROSCOPY SHOULDER WITH ROTATOR CUFF REPAIR ARTHROSCOPY SHOULDER WITH ROTATOR CUFF REPAIR Traumatic tear of left rotator cuff, unspecified tear extent, initial encounter 11/08/2021 12:26 PM [facility] Start: 11-08-2021 Subsequent hospital visit by physician 11/08/2021 Hospital Encounter Asaf Torres MD [address] [place] [address] [facility] Start: 11-01-2021 End: 11-01-2021 Admission to same day surgery center 11/01/2021 Surgery Asaf Torres MD [address] [place], [place] [address] [address] LEFT SHOULDER ARTHROSCOPY WITH ROTATOR CUFF REPAIR [facility] Comment on above: LEFT SHOULDER ARTHROSCOPY WITH ROTATOR C UFF REPAIR Start: 11-01-2021 End: 11-01-2021 ARTHROSCOPY SHOULDER WITH ROTATOR CUFF REPAIR ARTHROSCOPY SHOULDER WITH ROTATOR CUFF REPAIR Traumatic tear of left rotator cuff, unspecified tear extent, initial encounter 11/01/2021 9:13 AM [facility] Start: 11-01-2021 Subsequent hospital visit by physician 11/01/2021 Hospital Encounter Asaf Torres MD [facility] [place] [address] [facility] Start: 10-28-2021 End: 10-28-2021 Patient encounter procedure 10/28/2021 Office Visit Lab Asaf Torres MD [address] [facility] [place] [place] [address] [facility] Start: 10-17-2021 End: 10-17-2021 Patient encounter procedure 10/17/2021 Office Visit Orthopedic Surgery Asaf Torres MD [address] [place] [address] [facility] Start: 08-17-2021 End: 08-17-2021 Patient encounter procedure 08/17/2021 Office Visit Orthopedic Surgery Asaf Torres MD [address] [place] [address] [facility] Start: 05-04-2021 Influenza vaccination Sequential Influenza Vaccine (#1) [facility] Start: 05-04-2020 Influenza vaccination given Sequential Influenza Vaccine (#1) [facility] Start: 2019 Respiratory Syncytial Virus Immunization: Risk, 60-74 Risk, or 75+ (1 - Risk 60-74 years 1-dose series) Respiratory Syncytial Virus Immunization: Risk, 60-74 Risk, or 75+ (1 - Risk 60-74 years 1-dose series) [facility] Start: 2019 RSV High Risk: (Elderly (60+) or Population) (1 - Risk 60-74 years 1-dose series) RSV High Risk: (Elderly (60+) or Population) (1 - Risk 60-74 years 1-dose series) [facility] Start: 2019 RSV Vaccine (1 - 1-dose 60+ series) RSV Vaccine (1 - 1-dose 60+ series) [facility] Start: 2014 PROSTATE CANCER SCREENING DISCUSSION PROSTATE CANCER SCREENING DISCUSSION [facility] Start: 2014 Prostate specific antigen measurement Prostate Cancer Screening Discussion [facility] Start: 2009 Administration of herpes zoster vaccine Zoster Vaccines (1 of 2) [facility] Start: 2009 Pneumococcal vaccination [facility] Start: 2009 Pneumococcal Vaccine: 50+ (1 of 1 - PCV) Pneumococcal Vaccine: 50+ (1 of 1 - PCV) [facility] Start: 2009 Pneumococcal Vaccine: Age 50+ (1 of 1 - PCV) Pneumococcal Vaccine: Age 50+ (1 of 1 - PCV) [facility] Start: 2009 Prostate specific antigen measurement [facility] Start: 2009 Screening for malignant neoplasm of colon [facility] Start: 2009 SHINGRIX VACCINE (1 of 2) SHINGRIX VACCINE (1 of 2) [facility] Start: 2009 Zoster vaccine hzv live for subcutaneous use ZOSTER (SHINGLES) VACCINE (1 of 2) [facility] Start: 2009 Zoster Vaccines (1 of 2) Zoster Vaccines (1 of 2) [facility] Start: 2009 [facility] Start: 09-29-2009 MMR Vaccines (1 of 1 - Standard series) MMR Vaccines (1 of 1 - Standard series) [facility] Start: 2004 COLOGUARD (FIT-DNA) COLOGUARD (FIT-DNA) [facility] Start: 2004 Colonoscopy COLONOSCOPY [facility] Start: 2004 COLORECTAL CANCER SCREENING COLORECTAL CANCER SCREENING [facility] Start: [address] COLONOGRAPHY [facility] Start: 2004 DIABETES SCREEN DIABETES SCREEN [facility] Start: 2004 FECAL OCCULT BLOOD FECAL OCCULT BLOOD [facility] Start: 2004 Screening for malignant neoplasm of colon [facility] Start: 2004 SIGMOIDOSCOPY SIGMOIDOSCOPY [facility] Start: 1994 LIPID SCREEN LIPID SCREEN [facility] Start: 1978 Urine microalbumin profile DTAP,TDAP,TD (1 - Tdap) [facility] Start: 1977 Anxiety Screening Anxiety Screening [facility] Start: 1977 Depression Screening Depression Screening [facility] Start: 1977 Hepatitis C antibody, confirmatory test Hepatitis C Screening [facility] Start: 1977 Hepatitis C screening Hepatitis C Screening [facility] Start: 1977 HEPATITIS C SCREENING HEPATITIS C SCREENING [facility] Start: 1977 HIV SCREENING HIV SCREENING [facility] Start: 1977 HIV screening HIV Screening [facility] Start: 1975 COVID-19 Vaccine (1 of 2) COVID-19 Vaccine (1 of 2) [facility] Start: 1974 HIV screening [facility] Start: 1971 Adolescent depression screening assessment [facility] Start: 1971 COVID-19 Vaccine (1) COVID-19 Vaccine (1) [facility] Start: 1971 Depression screening using PHQ-9 (Patient Health Questionnaire 9) score [facility] Start: 1964 COVID-19 Vaccine (#1) COVID-19 Vaccine (#1) [facility] Start: 1964 COVID-19 Vaccine (1) COVID-19 Vaccine (1) [facility] Start: 1962 History and physical examination, annual for health maintenance Wellness Visit [facility] Start: 1962 Medicare Wellness Visit Medicare Wellness Visit [facility] Start: 04-02-1960 COVID-19 Vaccine (#1) COVID-19 Vaccine (#1) [facility] Start: 1959 Annual wellness visit Welcome to Medicare Visit [facility] Start: 1959 Depression screening using PHQ-9 (Patient Health Questionnaire 9) score DEPRESSION SCREENING (PHQ9) [facility] Start: 1959 Hepatitis C antibody, confirmatory test HEPATITIS C SCREENING [facility] Start: 1959 Hepatitis C screening [facility] Start: 1959 Lipid panel Lipid Panel [facility] Start: 1959 Prostate specific antigen measurement PSA Level [facility] Start: 1959 Screening for malignant neoplasm of colon [facility] ARTHROSCOPY SHOULDER WITH ROTATOR CUFF REPAIR ARTHROSCOPY SHOULDER WITH ROTATOR CUFF REPAIR Traumatic tear of left rotator cuff, unspecified tear extent, initial encounter [facility] End: 12-17-2023 CT angiography [facility] Work Phone: Comment on above: 1 Occurrences starting 12/17/2023 until 12/17/2023 Measurement of respiratory function PFT STANDARD PFT Routine 10/22/2023 4:26 PM EST [facility] Work Phone: End: 10-17-2022 MR Shoulder Left Without Contrast MR Shoulder Left Without Contrast Imaging Routine Left shoulder pain, unspecified chronicity 1 Occurrences starting 10/17/2021 until 10/17/2022 [facility] Work Phone: Comment on above: 1 Occurrences starting 10/17/2021 until 10/17/2022 End: 11-18-2023 Ophthalmic OCT panel [facility] End: 11-18-2023 Optical coherence tomography of retina [facility] Work Phone: Patient referral [facility] Work Phone: PREPARE TO TRANSFUSE OR RED BLOOD CELLS [facility] End: 10-25-2022 SARS-CoV-2 (COVID-19) RdRp gene [Presence] in Respiratory specimen by MANUELITO with probe detection COVID-19, Molecular Microbiology Routine Exposure to SARS-associated coronavirus 1 Occurrences starting 10/25/2021 until 10/25/2022 [facility] Work Phone: Comment on above: 1 Occurrences starting 10/25/2021 until 10/25/2022 End: 10-31-2022 SARS-CoV-2 (COVID-19) RdRp gene [Presence] in Respiratory specimen by MANUELITO with probe detection COVID-19, Molecular Microbiology Routine Exposure to SARS-associated coronavirus 1 Occurrences starting 10/31/2021 until 10/31/2022 [facility] Work Phone: Comment on above: 1 Occurrences starting 10/31/2021 until 10/31/2022 SARS-CoV-2 (COVID-19 ) RdRp gene [Presence] in Respiratory specimen by MANUELITO with probe detection COVID-19, Molecular Microbiology Routine Exposure to SARS-associated coronavirus 10/31/2021 10:11 AM EST [facility] End: 10-19-2023 Standard ECG ECG ECG STAT One Time for 1 Occurrences starting 10/19/2023 until 10/19/2023 [facility] Work Phone: Comment on above: One Time for 1 Occurrences starting 10/04 until 10/19/2023 End: 11-13-2023 Standard ECG [facility] SURG PATH REQUEST [facility] End: 08-15-2022 XR Knee Left 4+ Views (Note in Comments) XR Knee Left 4+ Views (Note in Comments) Imaging Routine Left knee pain, unspecified chronicity 1 Occurrences starting 08/16/2021 until 08/15/2022 [facility] Work Phone: Comment on above: 1 Occurrences starting 08/16/2021 until 08/15/2022 End: 02-09-2026 XR Pelvis and Hip - right 2 Views XR Hip Right With Pelvis 2-3 Views (Routine) Imaging Routine Right hip pain 1 Occurrences starting 02/09/2025 until 02/09/2026 [facility] Work Phone: Comment on above: 1 Occurrences starting 02/09/2025 until 02/09/2026 End: 01-27-2026 XR Shoulder - right 2 Views XR Shoulder Right 2+ Views (Standard) Imaging Routine Right shoulder pain, unspecified chronicity 1 Occurrences starting 01/28/2025 until 01/27/2026 [facility] Work Phone: Comment on above: 1 Occurrences starting 01/28/2025 until 01/27/2026 End: 10-17-2022 XR Shoulder Left 2+ Views (Standard) XR Shoulder Left 2+ Views (Standard) Imaging Routine Left shoulder pain, unspecified chronicity 1 Occurrences starting 10/17/2021 until 10/17/2022 [facility] Work Phone: Comment on above: 1 Occurrences starting 10/17/2021 until 10/17/2022 Immunizations Immunization Date Immunization Notes Care Provider [facility] 07-14-2021 influenza virus vaccine, unspecified formulation Shoaib Dubon MD Work Phone: [facility] Payers Date Payer Category Payer Managed Care (unspecified) [id number] 2024 Medicare [id number] 2024 Medicare supplementa l policy (as second payer) HU[employer] MEDICARE SUPPLEMENT [id number] 2024 Medicare [id number] 2024 Private Health Insurance [id number] 2024 Self-pay [id number] 2023 Private Health Insurance [id number] 2023 Private Health Insurance [id number] 2022 Unknown 2021 Private Health Insurance [id number] 2019 Managed Care POS (unspecified) [employer]ET[employer] CHOICE POS/POSII/PREMIER CARE/PREMIER CARE PLUS [id number] 2019 Private Health Insurance AETNA A ETNA CHOICE POS/POSII/PREMIER CARE/PREMIER CARE PLUS xxxxxxxxxx 2019-Present xxxxxxxxxx [id number] 2019 Private Health Insurance [id number] .[id number] 2019 Private Health Insurance [id number] .[id number] 2016 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 [facility] MANAG[facility] [id number] 2016-Present [id number] .[id number] 2013 Unknown [id number] 1959 Unknown [id number] 2.16.840.1.195919.3.579 .2.419 1959 Unknown [id number] 2.16.840.1.633431.3.579 .2.900 1959 Unknown [id number] 2.16.840.1.360217.3.579 .2.900 1959 Unknown [id number] 2.16.840.1.529251.3.579 .2.902 1959 Unknown [id number] 2.16.840.1.652815.3.579 .2.902 1959 Unknown [id number] 2.16.840.1.877451.3.579 .2.594 1959 Unknown [id number] 2.16.840.1.771368.3.579 .2.594 1959 Unknown [id number] 2.16.840.1.786356.3.579 .2.594 1959 Unknown [id number] 2.16.840.1.315309.3.579 .2.594 1959 Unknown [id number] 2.16.840.1.261590.3.579 .2.594 1959 Unknown [id number] 2.16.840.1.395827.3.579 .2.594 1959 Unknown [id number] 2.16.840.1.748356.3.579 .2.594 1959 Unknown [id number] 2.16.840.1.087040.3.579 .2.594 1959 Unknown [id number] 2.16.840.1.442721.3.579 .2.594 1959 Unknown [id number] 2.16.840.1.143767.3.579 .2.1243 1959 Unknown [id number] 2.16.840.1.582606.3.579 .2.903 1959 Unknown [id number] 2.840.1.872559.3.579 .2.903 1959 Unknown [id number] 2.840.1.800151.3.579 .2.903 1959 Unknown [id number] 2.840.1.556866.3.579 .2.903 1959 Unknown [id number] 2.840.1.439917.3.579 .2.903 1959 Unknown [id number] 2.840.1.204245.3.579 .2.903 1959 Unknown [id number] 2.840.1.349716.3.579 .2.903 1959 Unknown [id number] 2.840.1.906733.3.579 .2.903 1959 Private Health Insurance [id number] Unknown [id number] Unknown [id number] 2.16840.1.419660.3.579 .2.383 Unknown [id number] 2.16840.1.039785.3.579 .2.383 Unknown [id number] 2.840.1.114794.3.579 .2.462 Unknown [id number] 2.16.840.1.094360.3.579 .2.462 Unknown [id number] 2.16.840.1.492658.3.579 .2.462 Unknown [id number] 2.16.840.1.320949.3.579 .2.462 Unknown [id number] 2.16.840.1.860476.3.579 .2.462 Unknown [id number] 2.16.840.1.550557.3.579 .2.462 Unknown [id number] 2.16.840.1.680210.3.579 .2.462 Unknown [id number] 2.16.840.1.601403.3.579 .2.462 Unknown [id number] 2.16.840.1.810025.3.579 .2.462 Unknown [id number] 2.840.1.740695.3.579 .2.462 Unknown [id number] 2.16.840.1.744676.3.579 .2.462 Unknown [id number] 2.16.840.1.233136.3.579 .2.462 Unknown [id number] 2.16.840.1.301617.3.579 .2.462 Unknown [id number] 2.16.840.1.015950.3.579 .2.462 Unknown [id number] 2.840.1.927460.3.579 .2.462 Unknown [id number] 2.16840.1.201310.3.579 .2.462 Unknown [id number] 2.840.1.968451.3.579 .2.462 Unknown [id number] 2.16840.1.547820.3.579 .2.462 Social History Date Type Detail Facility Start: 10-04-2019 End: 02-19-2024 Tobacco smoking status [facility] Never smoker [facility] Start: 10-04-2019 End: 02-15-2025 Alcohol intake Current non-drinker of alcohol (finding) [facility] Start: 1960 Sex Assigned At Not on file [facility] Start: 10-04-2019 End: 01-25-2022 Tobacco use and exposure Never used [facility] Start: 09-17-2021 End: 02-06-2025 Exposure to SARS-CoV-2 (event) Not sure [facility] Start: 10-24-2021 End: 11-03-2021 Exposure to SARS-CoV-2 (event) Yes [facility] Start: 01-25-2022 End: 02-15-2025 Cigarette pack-years [facility] Start: 08-12-2020 End: 12-21-2023 Tobacco smoking consumption unknown [facility] Start: 08-12-2020 Non-smoker [facility] Start: 1960 Sex Assigned At Male [facility] Start: 01-01-2023 End: 02-15-2025 Tobacco use panel [facility] Start: 01-01-2023 Gender identity Identifies as male gender (finding) [facility] Start: 01-01-2023 Sexual orientation Heterosexua l (finding) [facility] Start: 10-20-2023 End: 02-02-2025 Alcoholic beverage intake Lifetime non-drinker (finding) [facility] Has the Spinzo, or water [employer] threatened to shut off services in your home in past 12Mo No [facility] (I/We) worried [facility] (my/our) food would run out before (I/we) got money to buy more. Never true [facility] In the past 12 month s, has lack of transportation kept you from medical appointments or from getting medications? No [facility] Start: 09-08-2016 Sex Male (finding) [facility] NEGATED: Highlighted rowStart: ANASTACIAF History of tobacco use Passive smoker [facility] Medical Equipment Procedure Code Equipment Code Equipment Origin al Text Equipment Identifier Dates [place] 1.3mm Sut ure 3 Ribbons Pro Rc Y-Knot - [id number] Start: 11-08-2021 [id number] Start: 11-13-2023 [id number] Start: 11-13-2023 [place] 1.3mm Sut ure 3 Ribbons Pro Rc Y-Knot - [id number] Start: 11-08-2021 Aortic root replacement FDA Start: 11-13-2023 Aortic root replacement FDA Start: 11-13-2023 Goals Date Patient Goal Desired Activity /State Functional Status Date Assessment Result Facility 10-20-2023 Are you deaf, or do you have serious difficulty hearing No 10/20/2023 1:50 AM Jenn Strong, LORE No [facility] 10-20-2023 Are you blind, or do you have serious difficulty seeing, even when wearing glasses No 10/20/2023 1:50 AM Jenn Strong, LORE No [facility] 10-20-2023 Do you have serious difficulty walking or climbing stairs No 10/20/2023 1:50 AM Jenn Strong, LORE No [facility] 10-20-2023 Do you have difficul ty dressing or bathing No 10/20/2023 1:50 AM Jenn Strong, LORE No [facility] 10-20-2023 Because of a physica l, mental, or emotional condition, do you have difficulty doing errands alone such as visiting a physician's office or shopping No 10/20/2023 1:50 AM Jenn Strong, LORE No [facility] 10-19-2023 Functional status Ambulates;Bath room Privilege [facility] Work Phone: Mental Status Date Assessment Result Facility 10-20-2023 Because of a physica l, mental, or emotional condition, do you have serious difficulty concentrating, remembering, or making decisions No 10/20/2023 1:50 AM Jenn Strong, LORE No [facility] 10-19-2023 Cognitive function Voice/Name [facility] Work Phone: 10-18-2023 Cognitive function Voice/Name [facility] Work Phone: Clinical Notes 05-27-2018 to 04-24-2025 Asaf Torres MD - 02/11/2025 4:06 PM Asaf Barboza MD - 02/09/2025 9:34 PM Verenice Keane - 02/02/2025 1:00 PM Mekhi Manzo MD - 02/02/2025 1:00 PM Ervinmickey Monet - 12/25/2024 10:30 AM EDT Note Date & Type Note Facility 04-24-2025 Note HISTORY AND PHYSICAL Patient Name: Afsaneh Bowers Admit Date: MR #: [id number] : 1960 Physicians: Chilango Welsh MD (Family); No ref. provider found (Referring) Assessment and Plan: Surgery today with: Dr. Torres Plan: Right shoulder arthroscopy with RCR - Nothing to eat after midnight. - Antibiotics given pre-op - He does not have risk factors for sleep apnea. Denies a history of sleep apnea or snoring. - Denies personal or family history of problems with anesthesia. - He is at normal risk for perioperative DVTs. Has a history of TIA after open heart surgery Oct 2023. Follows up with Cardiology and Neurology at [facility]. Routine DVT prophylaxis should be instituted, including early mobilization. Chief Complaint/Reason for Visit: Surgery History of Present Illness: Afsaneh Bowers is a 64 y.o. male presents from home for elective surgery with Dr. Torres. History of right shoulder pain. MRI - Full-thickness rotator cuff tear right shoulder minimally retracted He has discussed the surgery benefits and risks with Dr. Torres and plans to proceed. He denies any questions or concerns. Denies chest pain or shortness of breath. PMH, PSH, FH, and SH have been reviewed. Medical conditions as listed in PMH are chronic and are managed by primary care provider-Chilango Welsh MD (Family). He reports compliance with medications and treatment regimens. Denies any current or new concerns or changes in health other than what is being addressed today. All questions answered to the best of my ability. History: Past Medical History: Diagnosis Date Kidney calculi TIA (transient ischemic attack) 2 or 3 after heart procedure, states was told this is normal after this procedure Past Surgical History: Procedure Laterality Date AORTA SURGERY ARTHROSCOPY SHOULDER W/ ROTATOR CUFF REPAIR Left 11/08/2021 Procedure: LEFT SHOULDER ARTHROSCOPY WITH ROTATOR CUFF REPAIR; Surgeon: Asaf Torres MD; Location: [facility] Main OR; Service: Orthopedic CARDIAC SURGERY KNEE SURGERY left scope History reviewed. No pertinent family history. Social History [1] Living Arrangements: Alone Support Systems: Children Allergy Information: I have reviewed the patient's allergies. Patient has no known allergies. Home Medications: Outpatient Medications as of Medication Sig aspirin 81 MG EC tablet Take 1 (one) tablet (81 mg total) by mouth daily . carvediloL (COREG) 6.25 MG tablet Take 1 (one) tablet (6.25 mg total) by mouth 2 (two) times a day with meals . cyanocobalamin (B-12) 100 MCG tablet Take 1 (one) tablet (100 mcg total) by mouth daily . FA/mv,Ca,iron,min/lycopene/lut (MULTIVITAL ORAL) Take 1 capsule by mouth daily . losartan (COZAAR) 25 MG tablet Take 1 (one) tablet (25 mg total) by mouth daily . rosuvastatin (CRESTOR) 20 MG tablet Take 1 (one) tablet (20 mg total) by mouth daily . UNABLE TO FIND Med Name: Beet gummies takes 1 daily . ketorolac (TORADOL) 10 mg tablet Take 1 (one) tablet (10 mg total) by mouth every 6 (six) hours as needed for pain . Review of Systems: All other systems reviewed and negative other than HPI Physical Examination: Vital Signs: Height 6', weight 90.7 kg (200 lb). General: Alert, cooperative, no distress Head: Normocephalic Neck: Supple, symmetrical, trachea midline Lungs: Clear to auscultation bilaterally, respirations unlabored,normal respiratory effort Cardiovascular: RRR Abdomen: Soft, non-tender, active bowel sounds x 4 Extremities: Normal, atraumatic, no cyanosis or edema Skin: Skin color, texture, turgor normal Musculoskeletal: Full range of motion of all extremities Neurologic: A&O X 3. Psych: Mood and affect appropriate I recommend notifying the Surgeon's office if there are any new questions or concerns. [1] Social History Socioeconomic History Marital status: Tobacco Use Smoking status: Never Smokeless tobacco: Never Vaping Use Vaping status: Never Used Substance and Sexual Activity Alcohol use: No Drug use: Never Social [employer] Insecurity: No Food Insecurity (10/20/2023) Received from [facility] Hunger Vital Sign Worried About Running Out of Food in the Last Year: Never true Ran Out of Food in the Last Year: Never true Transportation Needs: No Transportation Needs (10/20/2023) Received from [facility] PRAPARE - Transportation Lack of Transportation (Medical): No Lack of Transportation (Non-Medical): No Housing Stability: Low Risk (10/20/2023) Received from [facility] Housing Stability Vital Sign Unable to Pay for Housing in the Last Year: No Number of Places Lived in the Last Year: 1 Unstable Housing in the Last Year: No AUTHENTICATED BY Asaf TORRES, ON 04/24/2025 11:02:37 [facility] 02-11-2025 Note Assessment/Plan: 1. Complete tear of right rotator cuff, unspecified whether traumatic Full-thickness rotator cuff tear right shoulder minimally retracted Moderately severe osteoarthritis of the right hip We have elected to focus on the shoulder at this time. Will proceed with cuff repair right shoulder Return for RC repair R shoulder. Subjective: Afsaneh Bowers is a 64 y.o. male here for Follow-up of the Right Hip ( RT HIP) and Follow-up of the Right Shoulder (MRI REVIEW RT LUL) . Review MRI right shoulder MRI shows a moderate-sized cuff tear supraspinatus right. Minimally retracted. Minimal atrophy Right hip pain. Difficulty with flexion of the hip. Pain has been present for several months. Unaware of an injury or trauma The following portions of the patient's history [...] for confusion and hallucinations. Objective: Ht 6' Comment: pt reports Wt 88.5 kg (195 lb) Comment: pt reports BMI 26.45 kg/m Physical Exam Constitutional: Appearance: He is well-developed. HENT: Head: Normocephalic. Pulmonary: Effort: Pulmonary effort is normal. Musculoskeletal: Cervical back: Normal range of motion. Skin: General: Skin is warm. Neurological: Mental Status: He is alert and oriented to person, place, and time. Right hip exam shows increased pain with flexion and rotation of the right hip. Pain with hip abduction beyond 20 degrees stretch signs negative. Right shoulder shows pain with elevation above 90 degrees. Significant weakness present with the arm abducted to 90 degrees Imaging from this visit: No results found. MRI right shoulder shows full-thickness rotator cuff tear supraspinatus about a centimeter in size. There is minimal retraction and minimal atrophy present Right hip x-rays show significant hip arthritis. Complete loss of the articular cartilage at the superior portion of the hip. Asaf Torres MD 02/11/2025 AUTHENTICATED BY Asaf TORRES ON 02/15/2025 23:19:38 [facility] 02-11-2025 History of Present illness Narrative Assessment/Plan: 1. Complete tear of right rotator cuff, unspecified whether traumatic Full-thickness rotator cuff tear right shoulder minimally retracted Moderately severe osteoarthritis of the right hip We have elected to focus on the shoulder at this time. Will proceed with cuff repair right shoulder Return for RC repair R shoulder. Subjective: Afsaneh Bowers is a 64 y.o. male here for Follow-up of the Right Hip ( RT HIP) and Follow-up of the Right Shoulder (MRI REVIEW RT LUL) . Review MRI right shoulder MRI shows a moderate-sized cuff tear supraspinatus right. Minimally retracted. Minimal atrophy Right hip pain. Difficulty with flexion of the hip. Pain has been present for several months. Unaware of an injury or trauma The following portions of the patient's history [...] for confusion and hallucinations. Objective: Ht 6' Comment: pt reports Wt 88.5 kg (195 lb) Comment: pt reports BMI 26.45 kg/m Physical Exam Constitutional: Appearance: He is well-developed. HENT: Head: Normocephalic. Pulmonary: Effort: Pulmonary effort is normal. Musculoskeletal: Cervical back: Normal range of motion. Skin: General: Skin is warm. Neurological: Mental Status: He is alert and oriented to person, place, and time. Right hip exam shows increased pain with flexion and rotation of the right hip. Pain with hip abduction beyond 20 degrees stretch signs negative. Right shoulder shows pain with elevation above 90 degrees. Significant weakness present with the arm abducted to 90 degrees Imaging from this visit: No results found. MRI right shoulder shows full-thickness rotator cuff tear supraspinatus about a centimeter in size. There is minimal retraction and minimal atrophy present Right hip x-rays show significant hip arthritis. Complete loss of the articular cartilage at the superior portion of the hip. Asaf Torres MD 02/11/2025 documented in this encounter [facility] 02-09-2025 Note Assessment/Plan: 1. Right shoulder pain, unspecified chronicity MR Shoulder Right Without Contrast 2. Tear of right rotator cuff, unspecified tear extent, unspecified whether traumatic Exam consistent with rotator cuff tear right shoulder X-ray showed changes consistent with rotator cuff disease Proceed with MRI right shoulder Return after MRI R shoulder. Subjective: Afsaneh Bowers is a 64 y.o. male here for Follow-up of the Right Shoulder ( RT LUL) . Established patient qcevk-jyff-qplvompq here today with right shoulder pain has been worse over the past couple months. Is aggravated the shoulder while playing softball. The following portions of the patient's history [...] for confusion and hallucinations. Objective: Ht 6' Comment: pt reports Wt 88.5 kg (195 lb) Comment: pt reports BMI 26.45 kg/m Physical Exam Constitutional: Appearance: He is well-developed. HENT: Head: Normocephalic. Pulmonary: Effort: Pulmonary effort is normal. Musculoskeletal: Cervical back: Normal range of motion. Skin: General: Skin is warm. Neurological: Mental Status: He is alert and oriented to person, place, and time. Right shoulder shows positive impingement. Weakness with arm abducted to 90 degrees. External rotation strength intact but painful. Imaging from this visit: No results found. X-rays demonstrate changes consistent with rotator cuff tear right shoulder. Sclerosis of the greater tuberosity noted. Superior subluxation of the humeral head noted Asaf Torres MD 02/09/2025 AUTHENTICATED BY Asaf TORRES, ON 02/09/2025 21:36:35 [facility] 02-09-2025 History of Present illness Narrative Assessment/Plan: 1. Right shoulder pain, unspecified chronicity MR Shoulder Right Without Contrast 2. Tear of right rotator cuff, unspecified tear extent, unspecified whether traumatic Exam consistent with rotator cuff tear right shoulder X-ray showed changes consistent with rotator cuff disease Proceed with MRI right shoulder Return after MRI R shoulder. Subjective: Afsaneh Bowers is a 64 y.o. male here for Follow-up of the Right Shoulder ( RT LUL) . Established patient frvtg-ldgs-iunemxuk here today with right shoulder pain has been worse over the past couple months. Is aggravated the shoulder while playing softball. The following portions of the patient's history [...] for confusion and hallucinations. Objective: Ht 6' Comment: pt reports Wt 88.5 kg (195 lb) Comment: pt reports BMI 26.45 kg/m Physical Exam Constitutional: Appearance: He is well-developed. HENT: Head: Normocephalic. Pulmonary: Effort: Pulmonary effort is normal. Musculoskeletal: Cervical back: Normal range of motion. Skin: General: Skin is warm. Neurological: Mental Status: He is alert and oriented to person, place, and time. Right shoulder shows positive impingement. Weakness with arm abducted to 90 degrees. External rotation strength intact but painful. Imaging from this visit: No results found. X-rays demonstrate changes consistent with rotator cuff tear right shoulder. Sclerosis of the greater tuberosity noted. Superior subluxation of the humeral head noted Asaf Torres MD 02/09/2025 documented in this encounter [facility] 02-02-2025 History of Present illness Narrative REASON FOR VISIT Afsaneh Bowers presents to clinic today for a Follow-Up Patient visit. 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 He notes right central blur may be a bit worse. Using Latanoprost qhs OU. Denies eye pain. Ophthalmic medications: Latanoprost at bedtime OU. Last edited by Carlos Keane on 02/02/2025 1:05 PM. Allergies, medications & history reviewed & updated by Carlos Keane REVIEW OF SYSTEMS ROS Positive for: Eyes (central loss) Last edited by Carlos Keane on 02/02/2025 12:49 PM. ~10 minutes of face to face time was spent with patient performing the quality assurance/r&d lab technician work of this visit. 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 Sheldon MD 12/25/24: Drops: none: IOP borderline at prior appointments, HVF changes may represent prior twig MURRAY vs myopic vs glaucomatous, after discussion with patient will plan for latanoprost at bedtime OU and follow-up in 6 weeks; IOP check to ensure no risk of worsening related to glaucomatous process. 02/02/25: Drops: none: IOP much improved today, recommend continued use of latanoprost at bedtime OU and follow-up in 4 months: IOP check and new baseline HVF 24-2 OU I had a detailed conversation with the patient today to discuss the disease process and natural progression of glaucoma. I emphasized the importance of frequent monitoring and control of intraocular pressure to reduce the risk of diease progession and resultant irreversible visual loss. The patient voiced understanding. 2. PCIOL OU - observe PLAN: Return: Return in about 4 months (around 06/04/2025) for Visual Tanner, both eyes (No later than 2:30PM), Pressure Check. Written instructions provided, all questions answered Mavis Manzo M.D. 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 He notes right central blur may be a bit worse. Using Latanoprost qhs OU. Denies eye pain. Ophthalmic medications: Latanoprost at bedtime OU. Last edited by Carlos Keane on 02/02/2025 1:05 PM. HPI: Afsaneh Bowers is a 64 y.o. male who presents for a repeat glaucoma evaluation and IOP check. [facility] reviewed and I agree with documentation Ocular Medications: 02/02/2025 Objective Exam: CCT: SK=026 m; JB=683 m IOP: OD: 13, OS: 9, 02/02/2025 Slit Lamp Exam: OD NL Comments OS NL Comments Extrnl Extrnl L/L Normal L/L Normal Conj White and quiet Conj White and quiet K Clear K Clear AC Deep and quiet AC Deep and quiet Iris Round Iris Round Lens PCIOL, s/p YAG capsulotomy Lens PCIOL Ant Vit Ant Vit Fundus: Optic Nerve & Retina: OD NL Comments OS NL Comments Disc Tilted disc with ?situs inversus, thin temporal rim, no obvious pallor, crisp margins Disc Tilted disc with ?situs inversus, thin temporal rim, crisp margins C/D Ratio 0.8 C/D Ratio 0.85 Macula Macula Vessel s Vessel s Periph Periph Ancillary Tests: documented in this encounter [facility] 12-25-2024 History of Present illness Narrative REASON FOR VISIT Afsaneh Bowers presents to clinic today for a Established Patient visit. Chief Complaint Follow-up HISTORY OF PRESENT ILLNESS HPI Afsaneh Bowers, a 64 y.o. male is present today for IOP check and Pachy. 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 Ocular hypertension OS Asked about problems with loss of vision, glare, eye pain/irritation, flashes of light, floaters, excessive tearing, redness and discharge. Patient reports that vision is unchanged since last visit and denies all complaints at this time. CURRENT OCULAR MEDICATIONS/TREATMENTS: AT's PRN OU Last edited by Claire Monet on 12/25/2024 11:03 AM. Allergies, medications & history reviewed & updated by Claire Monet REVIEW OF SYSTEMS Review of Systems Constitutional: Negative. HENT: Negative. Negative for congestion. Eyes: Negative. Negative for redness. Respiratory: Negative. Negative for cough. Gastrointestinal: Negative. Negative for abdominal distention. Musculoskeletal: Negative. Negative for arthralgias. Neurological: Negative. Negative for facial asymmetry. >15 minutes was spent with patient updating allergies, medications, and medical history. >10 minutes spent providing eye care and testing Referring Physician: Assessment/Plan: POAG indeterminate stage vs high risk suspect OU History of Therapy: Pharm: none Laser: none Surgery: Phaco OU Tmax: OD=25; OS=21 Last RNFL: 12/05/24 Last HVF: 12/05/24 Pachy: OD: 574 OS: 577 Referring Provider: Dr. Sheldon MD 12/25/24: Drops: none: IOP borderline at prior appointments, HVF changes may represent prior twig MURRAY vs myopic vs glaucomatous, after discussion with patient will plan for latanoprost at bedtime OU and follow-up in 6 weeks; IOP check to ensure no risk of worsening related to glaucomatous process. I had a detailed conversation with the patient today to discuss the disease process and natural progression of glaucoma. I emphasized the importance of frequent monitoring and control of intraocular pressure to reduce the risk of diease progession and resultant irreversible visual loss. The patient voiced understanding. 2. PCIOL OU - observe PLAN: Return: Return in about 6 weeks (around 02/05/2025) for Pressure Check. Written instructions provided, all questions answered Letter sent to referring provider today Referring provider: Rashawn Morocho No address on file Chief Complaint Patient presents with Follow-up HPI Afsaneh Bowers, a 64 y.o. male is present today for IOP check and Pachy. 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 Ocular hypertension OS Asked about problems with loss of vision, glare, eye pain/irritation, flashes of light, floaters, excessive tearing, redness and discharge. Patient reports that vision is unchanged since last visit and denies all complaints at this time. CURRENT OCULAR MEDICATIONS/TREATMENTS: AT's PRN OU Last edited by Claire Monet on 12/25/2024 11:03 AM. HPI: Afsaneh Bowers is a 64 y.o. male who presents for a glaucoma evaluation. The patient was referred here by Dr. Morocho due to concern for possible progressing glaucoma. The patient admits to having history of elevated IOP. The patient denies history of previous medication, laser or surgery for glaucoma. The patient denies any recent change in vision or ocular pain. The patient denies ocular redness and discharge. No history of ocular trauma. FHx - no. [facility]PI reviewed and I agree with documentation Ocular Medications: 12/25/2024 Objective Exam: CCT: OH=104 m; UE=184 m IOP: OD: 17, OS: 18, 12/25/2024 Gonioscopy Comments: OD Inferior: OS Inferior: OD Nasal: OS Nasal: OD Superior: OS Superior: OD Temporal: OS Temporal: Slit Lamp Exam: OD NL Comments OS NL Comments Extrnl Extrnl L/L Normal L/L Normal Conj White and quiet Conj White and quiet K Clear K Clear AC Deep and quiet AC Deep and quiet Iris Round Iris Round Lens PCIOL, s/p YAG capsulotomy Lens PCIOL Ant Vit Ant Vit Fundus: Optic Nerve & Retina: OD NL Comments OS NL Comments Disc Tilted disc with ?situs inversus, thin temporal rim, no obvious pallor, crisp margins Disc Tilted disc with ?situs inversus, thin temporal rim, crisp margins C/D Ratio 0.8 C/D Ratio 0.85 Macula pigment mottling Macula Normal Vessel s Vessel s Periph Periph Ancillary Tests: Mavis Manzo M.D. Recording Studio Setup Worker of Ophthalmology Glaucoma Division [facility] [place] [facility] Department of Ophthalmology and Visual Science documented in this encounter [facility] 12-17-2024 Instructions Nilo Avila II, OD - 12/17/2024 5:47 PM EDT Assessment and Plan H35.30 Myopic macular degeneration (primary encounter diagnosis) Comment: Stable. Monitor H43.393 Vitreous floaters of both eyes Comment: Vitreal floaters stable both eyes. Retinas flat and intact with no apparent retinal tear or traction. Monitor yearly. 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 Z96.1 Pseudophakia, both eyes Comment: Posterior chamber intraocular lenses are well positioned and clear. 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 large C/D's H52.223 Regular astigmatism, bilateral H52.4 Presbyopia Comment: Stable refraction. Vertical phoria. Discussed tint. Update glasses. I have confirmed and edited as necessary the relevant HPI, ophthalmic history, ROS, and the neuro exam findings as obtained by others. I have seen and examined Afsaneh Bowers. I have discussed the case and the management of this patient's care with the Resident/Fellow, if applicable. I also have reviewed and agree with the assessment and plan as stated above and agree with all of its relevant components. documented in this encounter [facility] 12-17-2024 Note HNO ID: [id number] Author: NILO AVILA II, AMANDA Service: ? Author Type: LEAD PRESS OPERATOR Type: Progress Notes Filed: 12/17/2024 17:47 Note Text: Assessment and Plan H35.30 Myopic macular degeneration (primary encounter diagnosis) Comment: Stable. Monitor H43.393 Vitreous floaters of both eyes Comment: Vitreal floaters stable both eyes. Retinas flat and intact with no apparent retinal tear or traction. Monitor yearly. 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 Z96.1 Pseudophakia, both eyes Comment: Posterior chamber intraocular lenses are well positioned and clear. 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 large C/D's H52.223 Regular astigmatism, bilateral H52.4 Presbyopia Comment: Stable refraction. Vertical phoria. Discussed tint. Update glasses. I have confirmed and edited as necessary the relevant HPI, ophthalmic history, ROS, and the neuro exam findings as obtained by others. I have seen and examined Afsaneh Bowers. I have discussed the case and the management of this patient's care with the Resident/Fellow, if applicable. I also have reviewed and agree with the assessment and plan as stated above and agree with all of its relevant components. [facility] 12-17-2024 History of Present illness Narrative Assessment and Plan H35.30 Myopic macular degeneration (primary encounter diagnosis) Comment: Stable. Monitor H43.393 Vitreous floaters of both eyes Comment: Vitreal floaters stable both eyes. Retinas flat and intact with no apparent retinal tear or traction. Monitor yearly. 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 Z96.1 Pseudophakia, both eyes Comment: Posterior chamber intraocular lenses are well positioned and clear. 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 large C/D's H52.223 Regular astigmatism, bilateral H52.4 Presbyopia Comment: Stable refraction. Vertical phoria. Discussed tint. Update glasses. I have confirmed and edited as necessary the relevant HPI, ophthalmic history, ROS, and the neuro exam findings as obtained by others. I have seen and examined Afsaneh Bowers. I have discussed the case and the management of this patient's care with the Resident/Fellow, if applicable. I also have reviewed and agree with the assessment and plan as stated above and agree with all of its relevant components. documented in this encounter [facility] 12-05-2024 History of Present illness Narrative Images from the original note were not included. [facility] Neuro-ophthalmology Service Department of Ophthalmology and Visual Sciences [address] [place] [address], [address] [place] [address] History of Present Illness: HPI Afsaneh Bowers, a 64 y.o. male with cecocentral scotoma OD, presents to clinic for a 6 month follow-up visit with HVF & OCT. Patient Reports the Following: Patient states that overall his vision is good and has not noticed any significant changes since last visit. He mentioned that he is having a little difficulty with depth perception. Denies any current eye pain, pressure sensation, or frequent headaches. OCULAR MEDICATIONS/TREATMENTS: ATS PRN OU Last edited by Rosalva Wray on 12/05/2024 8:50 AM. Review of Outside and Prior Records: Outside Records: reviewed Care Everywhere: reviewed Ophthalmic History: Ophthalmic problems: as above Last dilated eye exam: as above Relevant medications: as above Past Medical, Surgical, Family and Social History: Afsaneh has a past medical history of Arthritis, CAD (coronary artery disease), Cardiac angina, Essential hypertension, benign, GERD (gastroesophageal reflux disease), Heart valve disease, Hyperlipidemia, HI (myocardial infarction), and Vascular disease. He has no past medical history of Anemia, Arrhythmia, Asthma, Atrial fibrillation, Bleeding disorder, Cardiomyopathy, Claudication, Congenital heart disease, Congestive heart failure, COPD (chronic obstructive pulmonary disease), Depression, Diabetes mellitus, Difficult intubation, Glaucoma, Hepatitis, HIV (human immunodeficiency virus infection), Hyperthyroidism, Hypothyroidism, Liver disease, Migraine, KINGS (obstructive sleep apnea), Pacemaker, Peripheral arterial disease, Renal disease, Seizure, Sickle cell anemia, Stroke, or TIA (transient ischemic attack). Afsaneh has a past surgical history that includes shoulder surgery (Left); knee surgery (Left); heart catheterization (10/22/2023); and repair ascending aorta aneurysm w/ valve-sparing root repair or suspension (Midline, 11/13/2023). Afsaneh family history includes Colorectal Cancer in his maternal grandmother and mother; Heart Disease - Other in his father; Prostate Cancer in his father; Vision Problems in his maternal grandmother and mother. Afsaneh reports that he has never smoked. He has never been exposed to tobacco smoke. He has never used smokeless tobacco. He reports that he does not drink alcohol and does not use drugs. Current Medications: Current Outpatient Medications: Aspirin 325 MG tablet, Take 1 tablet by mouth daily., Disp: 30 tablet, Rfl: 2 carveDILOL 3.125 MG tablet, Take 1 tablet by mouth 2 times daily with meals., Disp: , Rfl: cyanocobalamin 100 MCG tablet, Take 1 tablet by mouth daily., Disp: , Rfl: Losartan 25 MG tablet, Take 1 tablet by mouth daily., Disp: , Rfl: Multiple Vitamin (multivitamin) capsule, Take 1 capsule by mouth daily., Disp: , Rfl: Rosuvastatin 20 MG tablet, Take 1 tablet by mouth daily., Disp: 30 tablet, Rfl: 0 Vitamin D, Cholecalciferol, 25 MCG (1000 UT) tablet, Take 1 tablet by mouth daily., Disp: , Rfl: Allergies: Afsaneh has no known allergies. Review of Systems: Pertinent positives and negatives listed in HPI; all other systems reviewed and negative. Exam: Cooperation: excellent There were no vitals filed for this visit. Base Eye Exam Visual Acuity (Snellen - Linear) Right Left Dist sc 20/25 +1 20/20 -2 Dist ph sc NI Near cc J1+ J1+ OTC Readers Tonometry (icare, 9:01 AM) Right Left Pressure 25 18 Pupils Pupils APD Right PERRL trace RAPD Left PERRL None Subjective RAPD OD Visual Tanner Left Right Full Full Neuro/Psych Oriented x3: Yes Mood/Affect: Normal Additional Tests Color Right Left Ishihara 10.5/12 12 Stereo Fly: + Animals: 3/3 Circles: 3/9 Strabismus Exam Method: Alternate cover Correction: sc Distance Near Near +3.00DS Near Bifocals Ortho 0 0 0 Ortho 0 0 0 X 1 0 0 Ortho 0 0 X 1 0 0 0 Ortho 0 0 0 Slit Lamp and Fundus Exam Slit Lamp Exam Right Left Lids/Lashes Normal Normal Conjunctiva/Sclera White and quiet White and quiet Cornea Clear Clear Anterior Chamber Deep and quiet Deep and quiet Iris Round Round Lens PCIOL, s/p YAG capsulotomy PCIOL Anterior Vitreous Normal Normal Fundus Exam Right Left Disc Tilted disc with ?situs inversus, thin temporal rim, no obvious pallor, crisp margins Tilted disc with ?situs inversus, thin temporal rim, crisp margins C/D Ratio 0.8 0.85 Macula pigment mottling Normal In-Office and Previous Testing: Fundus photo Photos OD OS 12/19/2023 Normal disc color, PPA, no disc edema, no CWS, tilted disc with situs inversus? Normal disc color, PPA, tilted disc with situs inversus? 06/06/24 Stable, see above Stable, see above OCT OPTIC NERVE OU RNFL OD (SS) OS (SS) Interp 12/19/2023 87 (02/10) 67 (04/12) OD - mild RNFL thickening in temporal quadrant, otherwise WNL OS - RNFL thinning in hour-glass pattern , but segmentation may be not accurate 2/2 myopia 03/26/24 83 (04/12) 69 (06/12) OD - normal RNFL thickness, overall stable OS - stable RNFL thinning in superior and inferior quadrants 06/05/24 90 68 OD - normal RNFL thickness, borderline thick RNFL in temporal quadrant, overall stable OS - stable RNFL thinning in superior and inferior quadrants 12/05/24 86 68 OD - normal RNFL thickness, stable OS - stable RNFL thinning in superior and inferior quadrants GCC OD (SS) OS (SS) Interp 12/19/2023 76 (7/10) 66 (9/10) OD - GCC thinning superiorly OS - diffuse moderate GCC thinning, but segmentation may be not accurate 2/2 myopia 03/26/24 74 (8/10) 70 (10/) OD - stable GCC thinning superiorly OS - stable moderate diffuse GCC thinning 06/06/24 73 67 OD - stable GCC thinning superiorly OS - stable moderate GCC thinning 12/05/24 69 66 OD - stable vs mild interval thinning of GCC superiorly OS - stable moderate GCC thinning OD - retinoschisis nasally to optic disc 2/2 myopia?, does not correlate to VF defect, mild dry outer retinal changes in macula, inner retinal layers thinning superiorly in macula HVF 24-2 FAST - OU HVF OD Reliability Fovea MD Interp 12/19/2023 Excellent 26 dB, decreased -4.20 Moderate central VF depression in pattern deviation, cecocentral? 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 on pattern deviation 12/05/24 Low, high fixation losses 33, wnl -1.02 Mild paracentral VF defect, improved VF after capsulotomy, but low reliability HVF OS Reliability Fovea MD Interp 12/19/2023 Low, high fixation losses 32 dB, mildly decreased -1.99 Mild scattered non-specific threshold loss 03/26/24 Excellent 35 dB, WNL -0.19 Mild scattered non-specific threshold loss, stable 06/06/24 good 32, mildly decreased -1.35 Essentially full VF 12/05/24 good 33, wnl -1.44 Mild superior nasal VF depression, paracentral VF depression, possible mild interval worsening Relevant Labs and Imaging: Neuroimages: MRI brain and orbits [facility], 11[facility]18[facility]23: There are 2 tiny foci of reduced diffusivity, one located in the right postcentral gyrus, and the other in the subcortical white matter the left frontal lobe. These areas have corresponding hyperintense FLAIR signal and are most consistent with acute infarcts. There is no orbital mass or abnormal enhancement along the course of the optic nerves, chiasm and optic tracts. 3 mm T2 hyperintense rounded dilation that appears directly connected to the orbital vein likely represents a small venous outpouching or varix within the posterior aspect of the right orbit. Finding is almost certainly benign. MRA head/neck: normal Other relevant images Relevant Labs: Component Latest Ref Rng 11/18/2023 SEDIMENTATION RATE AUTOMATED <20 mm/hr 18 C-Reactive Protein <10.00 mg/L 233.40 (H) Legend: (H) High I personally reviewed the image and lab results, agree the formal reports Summary of HPI, Assessment, and Plan: Afsaneh Bowers is a 64 y.o. male with a history of CAD, HTN, HLD, vascular disease, macular degeneration, recent ascending aortic aneurysm with valve sparing root repair, who presented 12/19/2023 for evaluation of visual field defect OD noted after open heart surgery. On Dr. Ellison exam patient had unclear etiology central scotoma. There was no evidence of macular edema, mac hole, or other retinal pathology to explain central scotoma. Imaging findings with evidence of 3 mm orbital vein outpouching or varix which was unlikely to cause his visual disturbance. Clinical exam without rAPD, subjective rAPD, or optic disc abnormality. GCA ROS negative, and ESR/CRP elevation is confounded by recent cardiac surgery. No evidence of optic nerve enhancement on MRI studies above. Patient was seen by retina specialist Dr. Ma in [facility] on 11/29/23. Exam showed peripapillary cotton wool spot, fluorescein angiography showed no obvious MURRAY, OCT showed no evidence of obvious ischemia, jaimes visual field (HVF) showed cecocentral scotoma. There was no obvious retinal pathology to manage. When seen on 12/19/23 patient reported that in 2 days after cardiac surgery on 11/13/23 he closed his left eye and noticed that he has dim vision in the right eye. Denied eye pain, pain with eye movement, headaches, voodoo pain, jaw claudication. Exam showed VA 20/25 in the right eye but decreased color vision (checked by refresh technician) and cecocentral scotoma OD. There was no objective and subjective RAPD. Optic nerve had normal appearance, no CWS noted on exam, previously described by retina specialist at [facility]. Slit lamp shows PCO OD. 03/26/24 exam is overall stable with cecocentral VF defect OD. There is a trace RAPD OD today. Today, 12/05/24 patient had YAG capsulotomy with Dr. Fang in June 2024 which subjectively improved vision in the right eye. Exam shows interval improvement of cecocentral VF defect OD with mild residual paracentral VF defect. 1. 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 Ocular hypertension of left eye IMPRESSION: # paracentral relative subjective scotoma in the right eye, cecocentral scotoma on HVF OD, noticed incidentally 2 days after open cardiac surgery 11/13/23 when the patient closed the left eye. MRI brain with evidence of tiny areas of acute infarcts in the brain. MRI orbits unrevealing, showed 3 mm superior ophthalmic vein outpouching vs varix, likely not visually significant. MRA head/neck WNL. No optic disc swelling noted on exam at the time of discovery of vision loss OD. Given history, MRI brain positive for tiny strokes, absence of optic disc swelling at the time of vision loss, inner retinal layers thinning in superior macula corresponding to inferior cecocentral scotoma, suspect BRAO/cilioretinal artery occlusion vs less likely PION. However, no RAPD documented at the time of hospitalization. Patient was seen by retina specialist at [facility], had fluorescein angiography, there was no evidence of MURRAY. There was reported CWS peripapillary on retina exam suggestive of ischemic etiology of vision loss, which had resolved at initial appointment. ROS for GCA was negative, inflammatory markers were elevated in the setting of cardiac surgery. -There was an atypical feature of decreased color vision at initial appointment (but checked by refresh technician). Re-checked at follow-up appointments, color vision 9/10 and 10.5/12 OD. Low suspicion of optic neuritis as a cause of vision loss OD (no optic nerve enhancement on MRI orbits on 11/18/23). - today, 12/05/24 patient still has mild paracentral VF defect OD but with improvement after YAG capsulotomy in June 2024 # PCO OD. - 03/26/24, Discussed that there is a low chance of improvement of vision OD with YAG capsulotomy. Today, patient reported he was seen by his cataract surgeon but capsulotomy was not performed given high risk of ocular complications after capsulotomy per patient. - Patient had YAG capsulotomy with Dr. Fang in June 2024, has objective and subjective improvement of vision OD after the procedure. # Borderline high IOP OU at initial appointment and later at follow-ups, cupped optic discs, RNFL thinning in hour-glass pattern OS (stable), can be 2/2 myopia and tilted optic discs, visual field OS with mild scattered non-specific threshold loss. Given mild IOP elevation will refer to glaucoma service for further evaluation RECOMMENDATION: Discussed findings and prognosis, questions answered Scheduled with Dr. Manzo for glaucoma evaluation Recommended to wear glasses/progressives for depth perception problems at near (no ocular misalignment noted today both at distance and near to explain depth perception problem at near) Follow-up with neuro-ophthalmology 6 months, sooner as needed Afsaneh was seen today for follow-up. 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 Patient is instructed to contact our office if symptoms to be worse, not improving or develop new symptoms. Elsa Chung MD, PhD Recording [employer] Setup Worker Neuro-Ophthalmology Department of Ophthalmology [facility] [place] Brief [place] of Common Ophthalmology Abbreviations: DFE: dilated fundus exam EOMs: extraocular movements GCC: Ganglion Cell Complex HVF: Humphry Visual Tanner IOP: intraocular pressure OCT: Optical Coherence Tomography OD: right eye OS: left eye OU: both eyes RNFL: Retinal Nerve Fiber Layer SME: sensorimotor exam VA: visual acuity Dictation software was used in preparation of this note. Attempts made to review and correct, however errors may still persist. REASON FOR VISIT Afsaneh Bowers presents to clinic today for a Follow-Up Patient visit. Chief Complaint Follow-up HISTORY OF PRESENT ILLNESS HPI Afsaneh Bowers, a 64 y.o. male with cecocentral scotoma OD, presents to clinic for a 6 month follow-up visit with HVF & OCT. Patient Reports the Following: Patient states that overall his vision is good and has not noticed any significant changes since last visit. He mentioned that he is having a little difficulty with depth perception. Denies any current eye pain, pressure sensation, or frequent headaches. OCULAR MEDICATIONS/TREATMENTS: ATS PRN OU Last edited by Rosalva Wray on 12/05/2024 8:50 AM. Allergies, medications & history reviewed & updated by Rosalva Wray REVIEW OF SYSTEMS Review of Systems Eyes: Positive for visual disturbance. All other systems reviewed and are negative. >~20 minutes was spent with patient updating allergies, medications, and medical history. [facility] Note LG Jt Injection/Arth rocentesis: L knee Performed by: Asaf Torres MD Authorized by: Asaf Torres MD [facility] [id number] - Large Joint Arthrocentesis: Consent given by: Patient Supporting Documentation: Indications: Pain Procedure Details: Location: Knee Site: L knee Needle size: 22 G Approach: Lateral Anesthetic used: Lidocaine 1% Anesthetic amount (mL): 1 Patient tolerance: Patient tolerated the procedure well with no immediate complications AUTHENTICATED BY Asaf TORRES, ON 10/15/2024 20:55:42 [facility] 10-15-2024 History of Present illness Narrative Associated Order(s): LG Jt Injection/Arthrocentesis: L knee Post-Procedure Diagnose(s): Arthritis of both knees LG Jt Injection/Arthrocentesis: L knee Performed by: Asaf Torres MD Authorized by: Asaf Torres MD [facility] [id number] - Large Joint Arthrocentesis: Consent given by: Patient Supporting Documentation: Indications: Pain Procedure Details: Location: Knee Site: L knee Needle size: 22 G Approach: Lateral Anesthetic used: Lidocaine 1% Anesthetic amount (mL): 1 Patient tolerance: Patient tolerated the procedure well with no immediate complications Associated Order(s): LG Jt Injection/Arthrocentesis: R knee Post-Procedure Diagnose(s): Arthritis of both knees LG Jt Injection/Arthrocentesis: R knee Performed by: Asaf Torres MD Authorized by: Asaf Torres MD CPT 29754 - Large Joint Arthrocentesis: Consent given by: Patient Supporting Documentation: Indications: Pain Procedure Details: Location: Knee Site: R knee Needle size: 20 G Approach: Lateral Anesthetic used: Lidocaine 1% Anesthetic amount (mL): 1 Patient tolerance: Patient tolerated the procedure well with no immediate complications Assessment/Plan: 1. Arthritis of both knees triamcinolone acetonide (KENALOG-40) injection 80 mg triamcinolone acetonide (KENALOG-40) injection 80 mg HINGED JANNIE-PULL PATELLA TRACKING KO, PRE-LEFTY, DJ Exacerbation of knee arthritis both knees Options discussed and elected to inject both knees No follow-ups on file. Subjective: Afsaneh Bowers is a 64 y.o. male here for Pain of the Left Knee (Pain for past 2-3 weeks.) and Pain of the Right Knee (Pain for past 2-3 weeks.) Has injured his right knee when he fell during a basketball game when he was tripped. 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 Has had injections in the past.. The following portions of the patient's history [...] confusion and hallucinations. Objective: Ht 6' Wt 90.7 kg (200 lb) BMI 27.12 kg/m Physical Exam Constitutional: Appearance: He is well-developed. HENT: Head: Normocephalic. Pulmonary: Effort: Pulmonary effort is normal. Musculoskeletal: Cervical back: Normal range of motion. Skin: General: Skin is warm. Neurological: Mental Status: He is alert and oriented to person, place, and time. Right knee full active range of motion. Pain medial joint space. Crepitation throughout range of motion. Left knee full active range of motion. Pain medial joint space. Crepitation throughout range of motion. Imaging from this visit: No results found. Asaf Torres MD 10/15/2024 documented in this encounter [facility] 10-15-2024 Note LG Jt Injection/Arth rocentesis: R knee Performed by: Asaf Torres MD Authorized by: Asaf Torres MD CPT 13355 - Large Joint Arthrocentesis: Consent given by: Patient Supporting Documentation: Indications: Pain Procedure Details: Location: Knee Site: R knee Needle size: 20 G Approach: Lateral Anesthetic used: Lidocaine 1% Anesthetic amount (mL): 1 Patient tolerance: Patient tolerated the procedure well with no immediate complications AUTHENTICATED BY Asaf TORRES, ON 10/15/2024 20:55:42 [facility] 10-15-2024 Note Assessment/Plan: 1. Arthritis of both knees triamcinolone acetonide (KENALOG-40) injection 80 mg triamcinolone acetonide (KENALOG-40) injection 80 mg HINGED JANNIE-PULL PATELLA TRACKING KO, PRE-LEFTY, MALVIN Exacerbation of knee arthritis both knees Options discussed and elected to inject both knees No follow-ups on file. Subjective: Afsaneh Bowers is a 64 y.o. male here for Pain of the Left Knee (Pain for past 2-3 weeks.) and Pain of the Right Knee (Pain for past 2-3 weeks.) Has injured his right knee when he fell during a basketball game when he was tripped. 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 Has had injections in the past.. The following portions of the patient's history [...] confusion and hallucinations. Objective: Ht 6' Wt 90.7 kg (200 lb) BMI 27.12 kg/m Physical Exam Constitutional: Appearance: He is well-developed. HENT: Head: Normocephalic. Pulmonary: Effort: Pulmonary effort is normal. Musculoskeletal: Cervical back: Normal range of motion. Skin: General: Skin is warm. Neurological: Mental Status: He is alert and oriented to person, place, and time. Right knee full active range of motion. Pain medial joint space. Crepitation throughout range of motion. Left knee full active range of motion. Pain medial joint space. Crepitation throughout range of motion. Imaging from this visit: No results found. Asaf Torres MD 10/15/2024 AUTHENTICATED BY Asaf TORRES ON 10/15/2024 20:55:42 [facility] 08-21-2024 Note LG Jt Injection/Arth rocentesis: L knee Performed by: Asaf Torres MD Authorized by: Asaf Torres MD CPT 60951 - Large Joint Arthrocentesis: Consent given by: Patient Supporting Documentation: Indications: Pain Procedure Details: Location: Knee Site: L knee Needle size: 20 G Approach: Lateral Anesthetic used: Lidocaine 1% Anesthetic amount (mL): 1 Patient tolerance: Patient tolerated the procedure well with no immediate complications AUTHENTICATED BY Asaf TORRES ON 08/21/2024 07:56:23 [facility] 08-21-2024 History of Present illness Narrative Associated Order(s): LG Jt Injection/Arthrocentesis: L knee Post-Procedure Diagnose(s): Arthritis of both knees LG Jt Injection/Arthrocentesis: L knee Performed by: Asaf Torres MD Authorized by: Asaf Torres MD CPT 38685 - Large Joint Arthrocentesis: Consent given by: Patient Supporting Documentation: Indications: Pain Procedure Details: Location: Knee Site: L knee Needle size: 20 G Approach: Lateral Anesthetic used: Lidocaine 1% Anesthetic amount (mL): 1 Patient tolerance: Patient tolerated the procedure well with no immediate complications Associated Order(s): LG Jt Injection/Arthrocentesis: R knee Post-Procedure Diagnose(s): Arthritis of both knees LG Jt Injection/Arthrocentesis: R knee Performed by: Asaf Torres MD Authorized by: Asaf Torres MD CPT [id number] - Large Joint Arthrocentesis: Consent given by: Patient Supporting Documentation: Indications: Pain Procedure Details: Location: Knee Site: R knee Needle size: 20 G Approach: Lateral Anesthetic used: Lidocaine 1% Anesthetic amount (mL): 1 Patient tolerance: Patient tolerated the procedure well with no immediate complications Assessment/Plan: 1. Arthritis of both knees triamcinolone acetonide (KENALOG-40) injection 80 mg triamcinolone acetonide (KENALOG-40) injection 80 mg Symptomatic knee arthritis bilateral Options discussed and elected to inject both knees Return if symptoms worsen or fail to improve. Subjective: Afsaneh Bowers is a 63 y.o. 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 Denies a specific injury. Pain is worse with activity. Patient has been in the ER today with a kidney stone. The following portions of the patient's history [...] confusion and hallucinations. Objective: Ht 6' Wt 90.7 kg (200 lb) BMI 27.12 kg/m Physical Exam Constitutional: Appearance: He is well-developed. HENT: Head: Normocephalic. Pulmonary: Effort: Pulmonary effort is normal. Musculoskeletal: Cervical back: Normal range of motion. Skin: General: Skin is warm. Neurological: Mental Status: He is alert and oriented to person, place, and time. Left knee shows mild swelling. Fullness in the popliteal space. Pain in his medial joint space. José Antonio's equivocal Right knee shows full active range of motion. Crepitation throughout range of motion. No effusion noted. Imaging from this visit: CT Abdomen Pelvis Without Contrast Result Date: 08/20/2024 EXAMINATION: CT ABDOMEN PELVIS WITHOUT CONTRAST HISTORY: ORDERING SYSTEM PROVIDED HISTORY: Abdominal/flank pain, stone suspected. TECHNOLOGIST PROVIDED HISTORY: Illness/Other. Reason for exam: Abdominal/flank pain, stone suspected. Encounter Type: Initial. Additional signs and symptoms: None. COMPARISON: None. TECHNIQUE: CT examination of the abdomen and pelvis without IV contrast. Coronal and sagittal reformations were performed. Dose reduction techniques were achieved by using automated exposure control and/or adjustment of mA and/or kV according to patient size and/or use of iterative reconstruction technique. FINDINGS: LOWER CHEST: Right middle lobe 6 mm subpleural pulmonary nodule. Left lower lobe basilar 1.5 cm subpleural nodularity. ABDOMEN: Liver: Normal. Bile ducts: Normal caliber. Gallbladder: No calcified gallstones. Normal caliber wall. Pancreas: Normal. Spleen: Normal. Adrenals: Normal right adrenal gland. Low-density left adrenal nodule measures 1.8 x 1.9 cm with 2 Hounsfield units. Findings compatible with adrenal adenoma. Kidneys: Mild right hydronephrosis. No left hydronephrosis. A few punctate nonobstructing right renal calculi. Left lower pole exophytic isodense lesion measures 2.6 x 2.9 x 2.4 cm with 42 Hounsfield units. PELVIS: Reproductive organs: Prostatomegaly. Ureters: Mild right hydroureter with proximal ureteral obstructing calculus measuring 3 x 3 mm. Normal caliber left ureter. Bladder: Decompressed. OTHER ABDOMEN AND PELVIS: Bowel: No bowel obstruction. No appendicitis. Sigmoid colonic diverticulosis. Small sliding-type hiatal hernia. Peritoneum: No free intraperitoneal air. No ascites or fluid collection. Vessels: Normal caliber abdominal aorta and iliac arteries with mild atherosclerotic calcification. Lymph nodes: No enlarged lymph nodes. Abdominal wall: Small fat-containing umbilical hernia. Osseous structures: No destructive lesions. Mild right hydroureteronephrosis with proximal ureteral obstructing calculus measuring 3 x 3 mm. Punctate nonobstructing right renal calculi. Indeterminate exophytic left renal lesion measuring up to 2.9 cm. Recommend MRI evaluation. Right middle lobe 6 mm subpleural nodule. Left basilar 1.5 cm pleural nodularity versus nodular atelectasis. Recommend [address] followup. Left adrenal adenoma. Sigmoid colonic diverticulosis. Prostatomegaly. [employer] Workstation ID: [id number] Previous x-rays have shown medial compartment arthritis of the left knee. He has had increased medial joint space disease noted on his x-rays. Right knee has shown mild arthritic change in the past. Asaf Torres MD 08/21/2024 documented in this encounter [facility] 08-21-2024 Note LG Jt Injection/Arth rocentesis: R knee Performed by: Asaf Torres MD Authorized by: Asaf Torres MD CPT [id number] - Large Joint Arthrocentesis: Consent given by: Patient Supporting Documentation: Indications: Pain Procedure Details: Location: Knee Site: R knee Needle size: 20 G Approach: Lateral Anesthetic used: Lidocaine 1% Anesthetic amount (mL): 1 Patient tolerance: Patient tolerated the procedure well with no immediate complications AUTHENTICATED BY Asaf TORRES, ON 08/21/2024 07:56:23 [facility] 08-21-2024 Note Assessment/Plan: 1. Arthritis of both knees triamcinolone acetonide (KENALOG-40) injection 80 mg triamcinolone acetonide (KENALOG-40) injection 80 mg Symptomatic knee arthritis bilateral Options discussed and elected to inject both knees Return if symptoms worsen or fail to improve. Subjective: Afsaneh Bowers is a 63 y.o. 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 Denies a specific injury. Pain is worse with activity. Patient has been in the ER today with a kidney stone. The following portions of the patient's history [...] confusion and hallucinations. Objective: Ht 6' Wt 90.7 kg (200 lb) BMI 27.12 kg/m Physical Exam Constitutional: Appearance: He is well-developed. HENT: Head: Normocephalic. Pulmonary: Effort: Pulmonary effort is normal. Musculoskeletal: Cervical back: Normal range of motion. Skin: General: Skin is warm. Neurological: Mental Status: He is alert and oriented to person, place, and time. Left knee shows mild swelling. Fullness in the popliteal space. Pain in his medial joint space. José Antonio's equivocal Right knee shows full active range of motion. Crepitation throughout range of motion. No effusion noted. Imaging from this visit: CT Abdomen Pelvis Without Contrast Result Date: 08/20/2024 EXAMINATION: CT ABDOMEN PELVIS WITHOUT CONTRAST HISTORY: ORDERING SYSTEM PROVIDED HISTORY: Abdominal/flank pain, stone suspected. TECHNOLOGIST PROVIDED HISTORY: Illness/Other. Reason for exam: Abdominal/flank pain, stone suspected. Encounter Type: Initial. Additional signs and symptoms: None. COMPARISON: None. TECHNIQUE: CT examination of the abdomen and pelvis without IV contrast. Coronal and sagittal reformations were performed. Dose reduction techniques were achieved by using automated exposure control and/or adjustment of mA and/or kV according to patient size and/or use of iterative reconstruction technique. FINDINGS: LOWER CHEST: Right middle lobe 6 mm subpleural pulmonary nodule. Left lower lobe basilar 1.5 cm subpleural nodularity. ABDOMEN: Liver: Normal. Bile ducts: Normal caliber. Gallbladder: No calcified gallstones. Normal caliber wall. Pancreas: Normal. Spleen: Normal. Adrenals: Normal right adrenal gland. Low-density left adrenal nodule measures 1.8 x 1.9 cm with 2 Hounsfield units. Findings compatible with adrenal adenoma. Kidneys: Mild right hydronephrosis. No left hydronephrosis. A few punctate nonobstructing right renal calculi. Left lower pole exophytic isodense lesion measures 2.6 x 2.9 x 2.4 cm with 42 Hounsfield units. PELVIS: Reproductive organs: Prostatomegaly. Ureters: Mild right hydroureter with proximal ureteral obstructing calculus measuring 3 x 3 mm. Normal caliber left ureter. Bladder: Decompressed. OTHER ABDOMEN AND PELVIS: Bowel: No bowel obstruction. No appendicitis. Sigmoid colonic diverticulosis. Small sliding-type hiatal hernia. Peritoneum: No free intraperitoneal air. No ascites or fluid collection. Vessels: Normal caliber abdominal aorta and iliac arteries with mild atherosclerotic calcification. Lymph nodes: No enlarged lymph nodes. Abdominal wall: Small fat-containing umbilical hernia. Osseous structures: No destructive lesions. Mild right hydroureteronephrosis with proximal ureteral obstructing calculus measuring 3 x 3 mm. Punctate nonobstructing right renal calculi. Indeterminate exophytic left renal lesion measuring up to 2.9 cm. Recommend MRI evaluation. Right middle lobe 6 mm subpleural nodule. Left basilar 1.5 cm pleural nodularity versus nodular atelectasis. Recommend [address] followup. Left adrenal adenoma. Sigmoid colonic diverticulosis. Prostatomegaly. [employer] Workstation ID: [id number] Previous x-rays have shown medial compartment arthritis of the left knee. He has had increased medial joint space disease noted on his x-rays. Right knee has shown mild arthritic change in the past. Asaf Torres MD 08/21/2024 AUTHENTICATED BY Asaf TORRES, ON 08/21/2024 07:56:22 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 The possibilities of retinal detachment, failure of laser to improve vision, loss of vision, and the need for additional procedures was discussed with the patient. The patient concurred with the proposed plan, giving informed consent. DOES THIS PROCEDURE REQUIRE A UNIVERSAL PROTOCOL? Yes. [place] Protocol is required Preprocedure verification is complete patient verified and consents confirmed, procedure sites are identified and marked, timeout was called before the start of the procedure. ANESTHESIA: none PROCEDURE DETAILS: Right eye was marked. Power: 1.8 mJ Spots: 32 Total Energy 58 mJ The patient tolerated the procedure well. 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 The possibilities of retinal detachment, failure of laser to improve vision, loss of vision, and the need for additional procedures was discussed with the patient. The patient concurred with the proposed plan, giving informed consent. DOES THIS PROCEDURE REQUIRE A UNIVERSAL PROTOCOL? Yes. [place] Protocol is required Preprocedure verification is complete patient verified and consents confirmed, procedure sites are identified and marked, timeout was called before the start of the procedure. ANESTHESIA: none PROCEDURE DETAILS: Right eye was marked. Power: 1.8 mJ Spots: 32 Total Energy 58 mJ The patient tolerated the procedure well. There were no complications Alvina Fang MD [facility] 06-06-2024 History of Present illness Narrative REASON FOR VISIT Afsaneh Bowers presents to clinic today for a New Patient visit. Chief Complaint New Patient HISTORY OF PRESENT ILLNESS HPI Present as a new patient referral for yag eval OD. Referred by Elsa Chung MD [address] [place] [address]. Asked patient about problems with loss of vision,changes or decreased vision, glare, eye pain/irritation, itching, flashes of light, floaters, excessive tearing, redness and discharge. Complains of the followin.) blurred vision OD x 6 months - first noticed after heart surgery 2.) keep right eye closed when reading CURRENT OCULAR MEDICATIONS/TREATMENTS: None Last edited by Aleisha Gregory on 06/06/2024 8:55 AM. Allergies, medications & history reviewed & updated by Aleisha Gregory REVIEW OF SYSTEMS Review of Systems Constitutional: Negative for chills and fever. HENT: Negative for congestion, postnasal drip and sneezing. Eyes: Positive for visual disturbance. Respiratory: Negative for cough. Neurological: Negative for dizziness, light-headedness and headaches. 15 minutes of face to face time was spent with patient performing the quality assurance/r&d lab technician work of this visit. Referring Physician: Elsa Chung MD [address] [place] [address] REASON FOR VISIT Afsaneh Bowers presents to clinic today for a New Patient visit. Chief Complaint New Patient HISTORY OF PRESENT ILLNESS HPI Present as a new patient referral for yag eval OD. Referred by Elsa Chung MD [address] [place] [address]. Asked patient about problems with loss of vision,changes or decreased vision, glare, eye pain/irritation, itching, flashes of light, floaters, excessive tearing, redness and discharge. Complains of the followin.) blurred vision OD x 6 months - first noticed after heart surgery 2.) keep right eye closed when reading CURRENT OCULAR MEDICATIONS/TREATMENTS: None Last edited by Aleisha Gregory on 06/06/2024 8:55 AM. Allergies, medications & history reviewed & updated by Alvina Fang MD REVIEW OF SYSTEMS Review of Systems Constitutional: Negative for chills and fever. HENT: Negative for congestion, postnasal drip and sneezing. Eyes: Positive for visual disturbance. Respiratory: Negative for cough. Neurological: Negative for dizziness, light-headedness and headaches. 15 minutes of face to face time was spent with patient performing the quality assurance/r&d lab technician work of this visit. Referring Physician: Elsa Chung MD [address] [place] [address] I have reviewed and agree with above findings as documented by quality assurance/r&d lab technician, including chief complaint, history, and review of systems. Base Eye Exam Visual Acuity (Snellen - Linear) Right Left Dist sc 20/30 -2 20/20 Dist ph sc NI Pupils Pupils Right PERRL Left PERRL Visual Tanner Left Right Full Full Extraocular Movement Right Left Full Full Neuro/Psych Oriented x3: Yes Mood/Affect: Normal Additional Tests Glare Testing (BAT) Low Medium High Right 20/30 20/40 20/50 Left 20/20 20/20 20/25 Slit Lamp and Fundus Exam Slit Lamp Exam Right Left Lids/Lashes Normal Normal Conjunctiva/Sclera White and quiet White and quiet Cornea Clear Clear Anterior Chamber Deep and quiet Deep and quiet Iris Round Round Lens PCIOL, PCO PCIOL Anterior Vitreous Normal Normal Fundus Exam Right Left Disc Clear margins, no obvious pallor, thin temporal rim Clear margins, no pallor C/D Ratio 0.8 0.85 Macula pigment mottling Normal Vessels Normal course and caliber Normal course and caliber Periphery no holes or tears no holes or tears Refraction Wearing Rx Type: various power OTC NVO Manifest Refraction (Auto) Sphere Cylinder [place] Dist VA Right +0.25 +1.00 071 Left +0.00 +0.50 040 Manifest Refraction #2 Sphere Cylinder [place] Dist VA Right +0.25 +1.50 075 NI Left +0.00 +0.50 040 20/15 Manifest Refraction Comments PD 62.5 Assessment/Plan: 1) PCO OD - Discussed findings of today s ophthalmologic evaluation and exam with the patient. Discussed pathophysiology and effect of capsular haze on vision. Discussed risks, benefits and alternatives of procedure. Discussed probable floaters postoperatively. All patient questions were answered. The patient elected to proceed and provided both verbal and written consent. Patient instructed to call office if experiences worsening vision, worsening eye pain, flashes or increased number of floaters 2) pseudophakia OU - stable 3) scotoma OD - follows with Dr Chung RTC as scheduled with Dr Chung. 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 Chief Complaint Other HISTORY OF PRESENT ILLNESS HPI 63 y.o. male with history of right scotoma, returns for testing only. Last edited by Carlos Keane on 06/06/2024 8:36 AM. Allergies, medications & history reviewed & updated by Carlos Keane REVIEW OF SYSTEMS <5 minutes of face to face time was spent with patient performing the quality assurance/r&d lab technician work of this visit. This is procedure only appointment. I did not examine the patient. OCT, HVF and fundus photo were stable. Patient had YAG capsulotomy OD with Dr. Fang today. I will see the patient in 6 months for follow-up appointment (OCT, HVF 24-2, no dilation), sooner as needed. Elsa Chung MD, PhD OCT RNFL OD (SS) OS (SS) Interp 12/19/2023 87 (/10) 67 (/) OD - mild RNFL thickening in temporal quadrant, otherwise WNL OS - RNFL thinning in hour-glass pattern , but segmentation may be not accurate 2/2 myopia 03/26/24 83 (8/10) 69 (06/12) OD - normal RNFL thickness, overall stable OS - stable RNFL thinning in superior and inferior quadrants 06/05/24 90 68 OD - normal RNFL thickness, borderline thick RNFL in temporal quadrant, overall stable OS - stable RNFL thinning in superior and inferior quadrants GCC OD (SS) OS (SS) Interp 12/19/2023 76 (7/10) 66 (05/13) OD - GCC thinning superiorly OS - diffuse moderate GCC thinning, but segmentation may be not accurate 2/2 myopia 03/26/24 74 (8/10) 70 (10) OD - stable GCC thinning superiorly OS - stable moderate diffuse GCC thinning 06/06/24 73 67 OD - stable GCC thinning superiorly OS - stable moderate GCC thinning OD - retinoschisis nasally to optic disc 2/2 myopia?, does not correlate to VF defect, mild dry outer retinal changes in macula, inner retinal layers thinning superiorly in macula HVF 24-2 FAST - OU HVF OD Reliability Fovea MD Interp 12/19/2023 Excellent 26 dB, decreased -4.20 Moderate central VF depression in pattern deviation, cecocentral? 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 on pattern deviation HVF OS Reliability Fovea MD Interp 12/19/2023 Low, high fixation losses 32 dB, mildly decreased -1.99 Mild scattered non-specific threshold loss 03/26/24 Excellent 35 dB, WNL -0.19 Mild scattered non-specific threshold loss, stable 06/06/24 good 32, mildly decreased -1.35 Essentially full VF Fundus photo Photos OD OS 12/19/2023 Normal disc color, PPA, no disc edema, no CWS, citus inversus? Normal disc color, PPA, citus inversus? 06/06/24 Stable, see above Stable, see above documented in this encounter [facility] 03-26-2024 History of Present illness Narrative Images from the original note were not included. 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 He notes vision is stable. The central loss can seem more obvious and larger in extreme heat. Denies double vision, eye pain. He notes no obvious color disparity. Last edited by Carlos Keane on 03/26/2024 9:14 AM. Review of Outside and Prior Records: Outside Records: reviewed Care Everywhere: reviewed Ophthalmic History: Ophthalmic problems: as above Last dilated eye exam: as above Relevant medications: as above Past Medical, Surgical, Family and Social History: Afsaneh has a past medical history of Arthritis, CAD (coronary artery disease), Cardiac angina, Essential hypertension, benign, GERD (gastroesophageal reflux disease), Heart valve disease, Hyperlipidemia, HI (myocardial infarction), and Vascular disease. He has no past medical history of Anemia, Arrhythmia, Asthma, Atrial fibrillation, Bleeding disorder, Cardiomyopathy, Claudication, Congenital heart disease, Congestive heart failure, COPD (chronic obstructive pulmonary disease), Depression, Diabetes mellitus, Difficult intubation, Glaucoma, Hepatitis, HIV (human immunodeficiency virus infection), Hyperthyroidism, Hypothyroidism, Liver disease, Migraine, KINGS (obstructive sleep apnea), Pacemaker, Peripheral arterial disease, Renal disease, Seizure, Sickle cell anemia, Stroke, or TIA (transient ischemic attack). Afsaneh has a past surgical history that includes shoulder surgery (Left); knee surgery (Left); heart catheterization (10/22/2023); and repair ascending aorta aneurysm w/ valve-sparing root repair or suspension (Midline, 11/13/2023). Afsaneh family history includes Colorectal Cancer in his maternal grandmother and mother; Heart Disease - Other in his father; Prostate Cancer in his father; Vision Problems in his maternal grandmother and mother. Afsaneh reports that he has never smoked. He has never been exposed to tobacco smoke. He has never used smokeless tobacco. He reports that he does not drink alcohol and does not use drugs. Current Medications: Current Outpatient Medications: Aspirin 325 MG tablet, Take 1 tablet by mouth daily., Disp: 30 tablet, Rfl: 2 cyanocobalamin 100 MCG tablet, Take 1 tablet by mouth daily., Disp: , Rfl: Multiple Vitamin (multivitamin) capsule, Take 1 capsule by mouth daily., Disp: , Rfl: Rosuvastatin 20 MG tablet, Take 1 tablet by mouth daily., Disp: 30 tablet, Rfl: 0 Vitamin D, Cholecalciferol, 25 MCG (1000 UT) tablet, Take 1 tablet by mouth daily., Disp: , Rfl: Allergies: Afsaneh has No Known Allergies. Review of Systems: Pertinent positives and negatives listed in HPI; all other systems reviewed and negative. Exam: Cooperation: good There were no vitals filed for this visit. Base Eye Exam Visual Acuity (Snellen - Linear) Right Left Dist sc 20/30 20/20 Dist ph sc NI Near cc J5 J1+ Correction: Glasses Tonometry (Tonopen, 9:23 AM) Right Left Pressure 15 18 Pupils Pupils APD Right PERRL trace RAPD Left PERRL None Visual Tanner Left Right Full Full Neuro/Psych Oriented x3: Yes Mood/Affect: Normal Additional Tests Color Right Left Ishihara 05/13 06/12 Stereo Fly: + Animals: 0/3 Circles: 0/9 Strabismus Exam Method: Alternate cover Correction: sc Distance Near Near +3DS N Bifocals 0 0 0 X 1 0 0 0 Ortho 0 0 X 1 0 0 Ortho 0 0 0 X 1 0 0 0 Slit Lamp and Fundus Exam Slit Lamp Exam Right Left Lids/Lashes Normal Normal Conjunctiva/Sclera White and quiet White and quiet Cornea Clear Clear Anterior Chamber Deep and quiet Deep and quiet Iris Round and reactive Round and reactive Lens PCIOL, PCO PCIOL Anterior Vitreous Normal Normal Fundus Exam Right Left Disc Clear margins, no obvious pallor, thin temporal rim Clear margins, no pallor C/D Ratio 0.8 0.85 Macula pigment mottling Normal Vessels Normal course and caliber Normal course and caliber In-Office and Previous Testing: OCT OPTIC NERVE OU RNFL OD (SS) OS (SS) Interp 12/19/2023 87 (6/10) 67 (8/10) OD - mild RNFL thickening in temporal quadrant, otherwise WNL OS - RNFL thinning in hour-glass pattern , but segmentation may be not accurate 2/2 myopia 03/26/24 83 (8/10) 69 (10/10) OD - normal RNFL thickness, overall stable OS - stable RNFL thinning in superior and inferior quadrants GCC OD (SS) OS (SS) Interp 12/19/2023 76 (7/10) 66 (9/10) OD - GCC thinning superiorly OS - diffuse moderate GCC thinning, but segmentation may be not accurate 2/2 myopia 03/26/24 74 (8/10) 70 (10/10) OD - stable GCC thinning superiorly OS - stable moderate diffuse GCC thinning OD - retinoschisis nasally to optic disc 2/2 myopia?, does not correlate to VF defect, mild dry outer retinal changes in macula, inner retinal layers thinning superiorly in macula HVF 24-2 FAST - OU HVF OD Reliability Fovea MD Interp 12/19/2023 Excellent 26 dB, decreased -4.20 Moderate central VF depression in pattern deviation, cecocentral? 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 HVF OS Reliability Fovea MD Interp 12/19/2023 Low, high fixation losses 32 dB, mildly decreased -1.99 Mild scattered non-specific threshold loss 03/26/24 Excellent 35 dB, WNL -0.19 Mild scattered non-specific threshold loss, stable Relevant Labs and Imaging: Neuroimages: MRI brain and orbits WWO: There are 2 tiny foci of reduced diffusivity, one located in the right postcentral gyrus, and the other in the subcortical white matter the left frontal lobe. These areas have corresponding hyperintense FLAIR signal and are most consistent with acute infarcts. There is no orbital mass or abnormal enhancement along the course of the optic nerves, chiasm and optic tracts. 3 mm T2 hyperintense rounded dilation that appears directly connected to the orbital vein likely represents a small venous outpouching or varix within the posterior aspect of the right orbit. Finding is almost certainly benign. MRA head/neck: normal Other relevant images Relevant Labs: Component Latest Ref Rng 11/18/2023 SEDIMENTATION RATE AUTOMATED <20 mm/hr 18 C-Reactive Protein <10.00 mg/L 233.40 (H) Legend: (H) High I personally reviewed the image and lab results, agree the formal reports Summary of HPI, Assessment, and Plan: Afsaneh Bowers is a 63 y.o. male with a history of CAD, HTN, HLD, vascular disease, macular degeneration, recent ascending aortic aneurysm with valve sparing root repair, who presented 12/19/2023 for evaluation of visual field defect OD noted after open heart surgery. On Dr. Ellison exam patient had unclear etiology central scotoma. There was no evidence of macular edema, mac hole, or other retinal pathology to explain central scotoma. Imaging findings with evidence of 3 mm orbital vein outpouching or varix which was unlikely to cause his visual disturbance. Clinical exam without rAPD, subjective rAPD, or optic disc abnormality. GCA ROS negative, and ESR/CRP elevation is confounded by recent cardiac surgery. No evidence of optic nerve enhancement on MRI studies above. Patient was seen by retina specialist Dr. Ma in [facility] on 11/29/23. Exam showed peripapillary cotton wool spot, fluorescein angiography showed no obvious MURRAY, OCT showed no evidence of obvious ischemia, jaimes visual field (HVF) showed cecocentral scotoma. There was no obvious retinal pathology to manage. When seen on 12/19/23 patient reported 2 days after cardiac surgery on 11/13/23 he closed his left eye and noticed that he has dim vision in the right eye. Denied eye pain, pain with eye movement, headaches, voodoo pain, jaw claudication. Exam showed VA 20/25 in the right eye but decreased color vision (checked by refresh technician) and cecocentral scotoma OD. There was no objective and subjective RAPD. Optic nerve had normal appearance, no CWS noted on exam, previously described by retina specialist at [facility]. Slit lamp shows PCO OD. Today, 03/26/24 exam is overall stable with cecocentral VF defect OD. There is a trace RAPD OD today. 1. 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 MRI brain with evidence of tiny areas of acute infarcts in the brain. MRI orbits unrevealing, showed 3 mm superior ophthalmic vein outpouching vs varix, likely not visually significant. MRA head/neck WNL. No optic disc swelling noted on exam at the time of discovery of vision loss OD. Given history, MRI brain positive for tiny strokes, absence of optic disc swelling at the time of vision loss, inner retinal layers thinning in superior macula corresponding to inferior cecocentral scotoma, suspect BRAO/cilioretinal artery occlusion vs less likely PION. However, no RAPD documented in hospital. Patient was seen by retina specialist at [facility], had fluorescein angiography, there was no evidence of MURRAY. There was reported CWS peripapillary on retina exam suggestive of ischemic etiology of vision loss, which had resolved at initial appointment. ROS for GCA was negative, inflammatory markers were elevated in the setting of cardiac surgery. -There was an atypical feature of decreased color vision at initial appointment (but checked by refresh technician). Re-checked today, color vision 9/10 OD. Low suspicion of optic neuritis as a cause of vision loss OD (no optic nerve enhancement on MRI orbits). - PCO OD. Discussed that there is a low chance of improvement of vision OD with YAG capsulotomy. Today, patient reported he was seen by his cataract surgeon but capsulotomy was not performed given high rist of ocular complications after capsulotomy per patient. - Borderline high IOP OU at initial appointment , RNFL thinning in hour-glass pattern OS but can be 2/2 myopia, visual field OS with mild scattered non-specific threshold loss. Will discuss a referral for glaucoma evaluation at follow-up appointment, but is unlikely to explain cecocentral scotoma OD. RECOMMENDATION: Discussed findings and prognosis, questions answered Follow-up with neuro-ophthalmology in 10 weeks, sooner as needed (strict return precautions dicussed). Will schedule with Dr. Fang (for possible YAG capsulotomy OD) and me the same day Afsaneh was seen today for follow-up. 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 Patient is instructed to contact our office if symptoms to be worse, not improving or develop new symptoms. Elsa Chung MD, PhD [employer] Worker Neuro-Ophthalmology Department of Ophthalmology [facility] Brief [place] of Common Ophthalmology Abbreviations: DFE: dilated fundus exam EOMs: extraocular movements GCC: Ganglion Cell Complex HVF: Humphry Visual Tanner IOP: intraocular pressure OCT: Optical Coherence Tomography OD: right eye OS: left eye OU: both eyes RNFL: Retinal Nerve Fiber Layer SME: sensorimotor exam VA: visual acuity Dictation software was used in preparation of this note. Attempts made to review and correct, however errors may still persist. REASON FOR VISIT Afsaneh Bowers presents to clinic today for a Follow-Up Patient visit. Chief Complaint Follow-up HISTORY OF PRESENT ILLNESS HPI 63 y.o. male with history of central scotoma, returns for ~3 month follow-up. He notes vision is stable. The central loss can seem more obvious and larger in extreme heat. Denies double vision, eye pain. He notes no obvious color disparity. Last edited by Carlos Keane on 03/26/2024 9:14 AM. Allergies, medications & history reviewed & updated by Carlos Keane REVIEW OF SYSTEMS ROS Positive for: Neurological (rarely), Eyes (central vision loss) Negative for: Gastrointestinal (nausea), Skin (rash) Last edited by Carlos Keane on 03/26/2024 9:14 AM. 10-15 minutes of face to face time was spent with patient performing the quality assurance/r&d lab technician work of this visit. documented in this encounter [facility] 02-21-2024 History of Present illness Narrative Associated Order(s): LG Jt Injection/Arthrocentesis: L knee Post-Procedure Diagnose(s): Primary osteoarthritis of left knee LG Jt Injection/Arthrocentesis: L knee Performed by: Asaf Torres MD Authorized by: Asaf Torres MD CPT 87044 - Large Joint Arthrocentesis: Consent given by: Patient Supporting Documentation: Indications: Pain Procedure Details: Location: Knee Site: L knee Needle size: 20 G Approach: Lateral Anesthetic used: Lidocaine 1% Anesthetic amount (mL): 1 Patient tolerance: Patient tolerated the procedure well with no immediate complications Assessment/Plan: 1. Primary osteoarthritis of left knee triamcinolone acetonide (KENALOG-40) injection 80 mg Symptomatic medial compartment arthritis left knee Treatment options discussed in detail. Elected to inject left knee. 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 Subjective: Afsaneh Bowers is a 63 y.o. male here for OTHER (Last injection left knee 09/26/23) Established patient last seen in September. Patient has undergone an endovascular aortic aneurysm repair. He is back doing relatively normal activities having difficulty getting back to his normal level of activity due to pain in his left knee. Treated with an injection in September 2023. X-rays have shown near complete loss of his medial joint space. He has mild to moderate patellofemoral arthrosis left knee. There has been progression of his left knee symptoms.. The following portions of the patient's history [...] and oriented to person, place, and time. Left knee shows slight varus. Pain in the medial joint space. Range of motion full. No instability noted. Imaging from this visit: No results found. X-rays dated September 26, 2023 show varus alignment with near complete loss of the medial joint space. Patellofemoral joint looks to be relatively well-maintained Asaf Torres MD 02/21/2024 documented in this encounter [facility] 01-21-2024 Instructions Tamra Haro MD - 01/21/2024 2:41 PM EDT If you have any questions please contact our office at [phone]. After office hours or on the weekend, please call Dr. Haro on his cell phone at [phone]. documented in this encounter [facility] 01-21-2024 Note HNO ID: [id number] Author: TAMRA HARO MD Service: ? Author Type: Physician Type: Progress Notes Filed: 01/21/2024 14:58 Note Text: ASSESSMENT/PLAN: 1. 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 High myopia, bilateral - ICD9: 367.1, ICD10: H52.13 Signs, symptoms of Retinal detachment reviewed with patient - Patient was -8.25-0.25 in the right eye and -10.50-1.00 in the left eye prior to cataract surgery 3. Glaucoma suspect of both eyes - ICD9: 365.00, ICD10: H40.003 Return for Visual field test and Fundus photos 4. Pseudophakia, both eyes - ICD9: V43.1, ICD10: Z96.1 Secondary cataract not significant, change in vision related to scotoma Lens position well centered Higher chance of detached retina post Yag laser due to high myopia Reevaluate in 6 months 5. Hypercholesteremia - ICD9: 272.0, ICD10: E78.00 Continue care with primary care physician I have confirmed and edited as necessary the relevant HPI, ophthalmic history, ROS, and the neuro exam findings as obtained by others. I have seen and examined Afsaneh Bowers. I have discussed the case and the management of this patient's care with the Resident/Fellow, if applicable. I also have reviewed and agree with the assessment and plan as stated above and agree with all of its relevant components. Tamra Haro MD [facility] 01-21-2024 History of Present illness Narrative ASSESSMENT/PLAN: 1. 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 High myopia, bilateral - ICD9: 367.1, ICD10: H52.13 Signs, symptoms of Retinal detachment reviewed with patient - Patient was -8.25-0.25 in the right eye and -10.50-1.00 in the left eye prior to cataract surgery 3. Glaucoma suspect of both eyes - ICD9: 365.00, ICD10: H40.003 Return for Visual field test and Fundus photos 4. Pseudophakia, both eyes - ICD9: V43.1, ICD10: Z96.1 Secondary cataract not significant, change in vision related to scotoma Lens position well centered Higher chance of detached retina post Yag laser due to high myopia Reevaluate in 6 months 5. Hypercholesteremia - ICD9: 272.0, ICD10: E78.00 Continue care with primary care physician I have confirmed and edited as necessary the relevant HPI, ophthalmic history, ROS, and the neuro exam findings as obtained by others. I have seen and examined Afsaneh Bowers. I have discussed the case and the management of this patient's care with the Resident/Fellow, if applicable. I also have reviewed and agree with the assessment and plan as stated above and agree with all of its relevant components. Tamra Haro MD documented in this encounter [facility] 12-31-2023 Instructions Tamra Haro MD - 12/31/2023 3:25 PM EDT If you have any questions please contact our office at [phone]. After office hours or on the weekend, please call Dr. Haro on his cell phone at [phone]. documented in this encounter [facility] 12-31-2023 History of Present illness Narrative ASSESSMENT/PLAN: 1. After-cataract of right eye with vision obscured - ICD9: 366.53, ICD10: H26.491 (primary diagnosis) - Will plan yag laser right when prior authorization is obtained 2. 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 Hypercholesteremia - ICD9: 272.0, ICD10: E78.00 - Continue to monitor with PCP I have confirmed and edited as necessary the relevant ophthalmic history, review of systems, surgical history, and ophthalmological examination findings as obtained by the ophthalmic technical staff. I have seen and examined Afsaneh Bowers. I have discussed the examination findings, diagnosis, and treatment options with Afsaneh Bowers and/or his family. I have also reviewed and agree with the assessment and plan as stated above and agree with all its relevant components. I gave the patient the opportunity to ask questions about the findings, diagnosis, and treatment options. documented in this encounter [facility] 12-19-2023 History of Present illness Narrative Images from the original note were not included. [facility] Neuro-ophthalmology Service Department of Ophthalmology and Visual Sciences [address], [address] [place] [address] History of Present Illness: EVARISTO Bowers is a 63 y.o. 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 Pt also saw a retinal specialist and a Arrow Point Attacher at [facility] in November 2023 Pt reports central scotoma OD.since about the 13 of november following an Open Heart surgery. Pt reports this central blurry spot is unchanged. Pt states that distance and reading vision is unchanged. Pt denies any eye pain or eye discomfort OU. Pt denies new flashes of light or floaters OU. Pt denies having double vision. Pt denies changes or decreases in color vision or brightness of vision. Pt denies having headaches or migraines. Pt denies whooshing, ringing or pulsatile tinnitus in either ear. Pt reports previous Cataract Surgery OU. . Pt denies any other previous eye or eye muscle surgeries OU. Pt denies any eye or head injury in the past. Current Ocular Medications: Artificial Tears PRN OU Outside Ocular Care: Patient follows with [facility] for routine eye exams. Patient last dilated eye exam was completed 11/2023 Care Team: Referring: Elle Ellison MD Ophth/Optom: [facility] PCP: Dr. Chilango Welsh MD Neurologist: Dr. Chau Relevant Labs & Imaging: Radiology Questionnaire Metal Implants/Pacemaker/defibrillator: No Any allergy/sensitivity to contrast: No Ambulatory: No Renal Disease: No : No Last edited by Tomas Littlejohn on 12/19/2023 10:43 AM. Review of Outside and Prior Records: Outside Records: reviewed Care Everywhere: reviewed Ophthalmic History: Ophthalmic problems: as above Last dilated eye exam: as above Relevant medications: as above Past Medical, Surgical, Family and Social History: Afsaneh has a past medical history of Arthritis, CAD (coronary artery disease), Cardiac angina, Essential hypertension, benign, GERD (gastroesophageal reflux disease), Heart valve disease, Hyperlipidemia, HI (myocardial infarction), and Vascular disease. He has no past medical history of Anemia, Arrhythmia, Asthma, Atrial fibrillation, Bleeding disorder, Cardiomyopathy, Claudication, Congenital heart disease, Congestive heart failure, COPD (chronic obstructive pulmonary disease), Depression, Diabetes mellitus, Difficult intubation, Glaucoma, Hepatitis, HIV (human immunodeficiency virus infection), Hyperthyroidism, Hypothyroidism, Liver disease, Migraine, KINGS (obstructive sleep apnea), Pacemaker, Peripheral arterial disease, Renal disease, Seizure, Sickle cell anemia, Stroke, or TIA (transient ischemic attack). Afsaneh has a past surgical history that includes shoulder surgery (Left); knee surgery (Left); heart catheterization (10/22/2023); and repair ascending aorta aneurysm w/ valve-sparing root repair or suspension (Midline, 11/13/2023). Afsaneh family history includes Colorectal Cancer in his maternal grandmother and mother; Heart Disease - Other in his father; Prostate Cancer in his father; Vision Problems in his maternal grandmother and mother. Afsaneh reports that he has never smoked. He has never been exposed to tobacco smoke. He has never used smokeless tobacco. He reports that he does not drink alcohol and does not use drugs. Current Medications: Current Outpatient Medications: Aspirin 325 MG tablet, Take 1 tablet by mouth daily., Disp: 30 tablet, Rfl: 2 cyanocobalamin 100 MCG tablet, Take 1 tablet by mouth daily., Disp: , Rfl: Multiple Vitamin (multivitamin) capsule, Take 1 capsule by mouth daily., Disp: , Rfl: Rosuvastatin 20 MG tablet, Take 1 tablet by mouth daily., Disp: 30 tablet, Rfl: 0 Vitamin D, Cholecalciferol, 25 MCG (1000 UT) tablet, Take 1 tablet by mouth daily., Disp: , Rfl: Allergies: Afsaneh has No Known Allergies. Review of Systems: Pertinent positives and negatives listed in HPI; all other systems reviewed and negative. Exam: Cooperation: good There were no vitals filed for this visit. Base Eye Exam Visual Acuity (Snellen - Linear) Right Left Dist cc 20/25 -2 20/20 Dist ph cc NI Near sc 20/400 J16 Tonometry (Tonopen, 10:53 AM) Right Left Pressure 23 21 Pupils Pupils APD Right PERRL None Left PERRL None Visual Tanner Left Right Full Full Neuro/Psych Oriented x3: Yes Mood/Affect: Normal Dilation Right eye: 1.0% Mydriacyl, 2.5% Phenylephrine @ 1:24 PM Additional Tests Color Right Left Ishihara 5.5/10 10 Stereo Fly: - Animals: 0/3 Circles: 0/10 Strabismus Exam Method: Alternate cover Correction: sc Distance Near Near +3DS N Bifocals 0 0 0 X 1 0 0 0 LH flick Ortho 0 0 X 1 0 0 Ortho LH flick 0 0 0 X 1 0 0 0 LH flick Slit Lamp and Fundus Exam Slit Lamp Exam Right Left Lids/Lashes Normal Normal Conjunctiva/Sclera White and quiet White and quiet Cornea Clear Clear Anterior Chamber Deep and quiet Deep and quiet Iris Round and reactive Round and reactive Lens PCIOL, PCO PCIOL Anterior Vitreous Normal Normal Fundus Exam Right Left Disc Clear margins, no pallor Clear margins, no pallor C/D Ratio 0.8 0.85 Macula pigment mottling Normal Vessels Normal course and caliber Normal course and caliber In-Office and Previous Testing: OCT OPTIC NERVE OU RNFL OD (SS) OS (SS) Interp 12/19/2023 87 (6/10) 67 (8/10) OD - mild RNFL thickening in temporal quadrant, otherwise WNL OS - RNFL thinning in hour-glass pattern , but segmentation may be not accurate 2/2 myopia GCC OD (SS) OS (SS) Interp 12/19/2023 76 (7/10) 66 (9/10) OD - GCC thinning superiorly OS - diffuse moderate GCC thinning, but segmentation may be not accurate 2/2 myopia OD - retinoschisis nasally to optic disc 2/2 myopia?, does not correlate to VF defect, mild dry outer retinal changes in macula HVF 24-2 FAST - OU HVF OD Reliability Fovea MD Interp 12/19/2023 Excellent 26 dB, decreased -4.20 Moderate central VF depression in pattern deviation, cecocentral? scotoma on pattern deviation HVF OS Reliability Fovea MD Interp 12/19/2023 Low, high fixation losses 32 dB, mildly decreased -1.99 Mild scattered non-specific threshold loss FUNDUS PHOTOGRAPHY-OU Photos OD OS 12/19/2023 Normal disc color, PPA, no disc edema, no CWS, citus inversus? Normal disc color, PPA, citus inversus? Relevant Labs and Imaging: Neuroimages: MRI brain and orbits WWO: There are 2 tiny foci of reduced diffusivity, one located in the right postcentral gyrus, and the other in the subcortical white matter the left frontal lobe. These areas have corresponding hyperintense FLAIR signal and are most consistent with acute infarcts. There is no orbital mass or abnormal enhancement along the course of the optic nerves, chiasm and optic tracts. 3 mm T2 hyperintense rounded dilation that appears directly connected to the orbital vein likely represents a small venous outpouching or varix within the posterior aspect of the right orbit. Finding is almost certainly benign. MRA head/neck: normal Other relevant images Relevant Labs: Component Latest Ref Rng 11/18/2023 SEDIMENTATION RATE AUTOMATED <20 mm/hr 18 C-Reactive Protein <10.00 mg/L 233.40 (H) Legend: (H) High I personally reviewed the image and lab results, agree the formal reports Summary of HPI, Assessment, and Plan: Afsaneh Bowers is a 63 y.o. male with a history of CAD, HTN, HLD, vascular disease, macular degeneration, recent ascending aortic aneurysm with valve sparing root repair, who presented 12/19/2023 as a referral from Elle Ellison MD for evaluation of visual field defect OD noted after open heart surgery. On Dr. Ellison exam patient had unclear etiology central scotoma. There was no evidence of macular edema, mac hole, or other retinal pathology to explain central scotoma. Imaging findings with evidence of orbital vein which was unlikely to cause his visual disturbance. Clinical exam without rAPD, subjective rAPD, or optic disc abnormality. GCA ROS negative, and ESR/CRP elevation is confounded by recent cardiac surgery. No evidence of optic nerve enhancement on MRI studies above. Patient was seen by retina specialist Dr. Ma in [facility] on 11/29/23. Exam showed peripapillary cotton wool spot, fluorescein angiography showed no obvious MURRAY, OCT showed no evidence of obvious ischemia, jaimes visual field (HVF) showed cecocentral scotoma. There was no obvious retinal pathology to manage. Today, 12/19/23 patient reports 2 days after cardiac surgery he closed his left eye and noticed that he has dim vision in the right eye. Denies eye pain, pain with eye movement, headaches, voodoo pain, jaw claudication. Exam today shows VA 20/25 in the right eye but decreased color vision (checked by refresh technician) and cecocentral scotoma OD. There is no objective and subjective RAPD. Optic nerve has normal appearance, no CWS noted on exam today, previously described by retina specialist at [facility]. Slit lamp shows PCO OD. 1. 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, unspecified laterality IMPRESSION: - paracentral relative subjective scotoma in the right eye, cecocentral scotoma on HVF OD, noticed incidentally 2 days after open cardiac surgery when the patient closed the left eye. MRI with evidence of acute infarcts in the brain. MRI orbits unrevealing. MRA head/neck WNL. No optic disc swelling noted on exam at the time of discovery of vision loss OD. Given history and absence of optic disc swelling at the time of vision loss suspect BRAO/cilioretinal artery occlusion vs PION. However, no RAPD documented in hospital, no RAPD today on exam. Patient was seen by retina specialist at [facility], had fluorescein angiography, there was no evidence of MURRAY. There was CWS peripapillary which has resolved today. There is an atypical feature of decreased color vision (but checked by refresh technician, I will re-check at follow-up appointment) OD suggestive of h/o optic neuritis but no optic nerve enhancement on MRI orbits, no RAPD which is unusual. Given PCO OD and absence of RAPD there is a chance that PCO can cause relative scotoma in this patient. Discussed that there is a low chance of improvement of vision OD with YAG capsulotomy but worthwhile trying, patient agreeable, will do YAG capsulotomy with his cataract surgeon locally and keep me updated. I will see the patient for follow-up appointment in March 2024. We can consider labs for atypical optic neuritis workup at follow-up appointment if color vision is again decreased and no improvement of vision with capsulotomy. Patient instructed to call our office immediately in case of worsening of vision. - Borderline high IOP OU, RNFL thinning in hour-glass pattern OS, will discuss a referral for glaucoma evaluation at follow-up appointment, but is unlikely to explain cecocentral scotoma OD. RECOMMENDATION: Discussed findings and prognosis, questions answered YAG capsulotomy OD with patient's enrichment teacher locally Follow-up with neuro-ophthalmology in 3 months, sooner as needed (strict return precautions dicussed) Afsaneh was seen today for new patient. Diagnoses and all orders for this visit: 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, unspecified laterality - OCT OPTIC NERVE OU; Future - HVF 24-2 FAST - OU; Future - FUNDUS PHOTOGRAPHY-OU; Future - OCT OPTIC NERVE OU - HVF 24-2 FAST - OU - FUNDUS PHOTOGRAPHY-OU Return in about 3 months (around 03/19/2024) for OCT, HVF 24-2, no dilation. Patient is instructed to contact our office if symptoms to be worse, not improving or develop new symptoms. Elsa Chung MD, PhD Recording Studio Setup Worker Neuro-Ophthalmology Department of Ophthalmology [facility] Brief [place] of Common Ophthalmology Abbreviations: DFE: dilated fundus exam EOMs: extraocular movements GCC: Ganglion Cell Complex HVF: Humphry Visual Tanner IOP: intraocular pressure OCT: Optical Coherence Tomography OD: right eye OS: left eye OU: both eyes RNFL: Retinal Nerve Fiber Layer SME: sensorimotor exam VA: visual acuity Dictation software was used in preparation of this note. Attempts made to review and correct, however errors may still persist. REASON FOR VISIT Afsaneh Bowers presents to clinic today for a New Patient visit. Chief Complaint New Patient HISTORY OF PRESENT ILLNESS HPI Afsaneh Bowers is a 63 y.o. 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 Pt also saw a retinal specialist and a [facility] Point Attacher at [facility] in November 2023 Pt reports central scotoma OD.since about the 13 of november following an Open Heart surgery. Pt reports this central blurry spot is unchanged. Pt states that distance and reading vision is unchanged. Pt denies any eye pain or eye discomfort OU. Pt denies new flashes of light or floaters OU. Pt denies having double vision. Pt denies changes or decreases in color vision or brightness of vision. Pt denies having headaches or migraines. Pt denies whooshing, ringing or pulsatile tinnitus in either ear. Pt reports previous Cataract Surgery OU. . Pt denies any other previous eye or eye muscle surgeries OU. Pt denies any eye or head injury in the past. Current Ocular Medications: Artificial Tears PRN OU Outside Ocular Care: Patient follows with [facility] for routine eye exams. Patient last dilated eye exam was completed 11/2023 Care Team: Referring: Elle Ellison MD Ophth/Optom: [facility] PCP: Dr. Chilango Welsh MD Neurologist: Dr. Chau Relevant Labs & Imaging: Radiology Questionnaire Metal Implants/Pacemaker/defibrillator: No Any allergy/sensitivity to contrast: No Ambulatory: No Renal Disease: No : No Last edited by Tomas Littlejohn on 12/19/2023 10:43 AM. Allergies, medications & history reviewed & updated by Tomas Littlejohn REVIEW OF SYSTEMS ROS Positive for: Respiratory (No SOB) Negative for: Constitutional, Gastrointestinal, Neurological (denies headaches and migraines), Skin, Genitourinary, Musculoskeletal, HENT, Endocrine, Cardiovascular, Eyes, Psychiatric, Allergic/Imm (No known allergies), Heme/Lymph Last edited by Tomas Littlejohn on 12/19/2023 10:43 AM. 15 minutes of face to face time was spent with patient performing the quality assurance/r&d lab technician work of this visit. Referring Provider: documented in this encounter [facility] 12-10-2023 History and physical note Chief Complaint Chief Complaint Patient presents with New Patient Had 2 mini strokes History of Present Illness Afsaneh Bowers is a 63 y.o. 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 he was referred to [facility] for further evaluation and treatment. Past Medical History Past Medical History: Diagnosis Date Arthritis CAD (coronary artery disease) Cardiac angina Essential hypertension, benign GERD (gastroesophageal reflux disease) Heart valve disease Hyperlipidemia HI (myocardial infarction) Vascular disease Past Surgical History Past Surgical History: Procedure Laterality Date REPAIR ASCENDING AORTA ANEURYSM W/ VALVE-SPARING ROOT REPAIR OR SUSPENSION Midline 11/13/2023 Laterality: Midline; Surgeon: Ani Ríos MD (John); Location: [facility] ROSS MAIN OR HEART CATHETERIZATION 10/22/2023 KNEE SURGERY Left SHOULDER SURGERY Left Rotator cuff Family History Family History Problem Relation Age of Onset Colorectal Cancer Mother Vision Problems Mother Heart Disease - Other Father Prostate Cancer Father Colorectal Cancer Maternal Grandmother Vision Problems Maternal Grandmother Social History Social History Socioeconomic History Marital status: Single Spouse name: Not on file Number of children: Not on file Years of education: Not on file Highest education level: Not on file Occupational History Not on file Tobacco Use Smoking status: Never Passive exposure: Never Smokeless tobacco: Never Vaping Use Vaping status: Never Used Substance and Sexual Activity Alcohol use: Never Drug use: Never Sexual activity: Yes Partners: Female control/protection: Pill, Surgical Other Topics Concern Not on file Social History Narrative Not on file Social Determinants of Health Financial Resource Strain: Not on file Food Insecurity: No Food Insecurity (10/20/2023) Hunger Vital Sign Worried About Running Out of Food in the Last Year: Never true Ran Out of Food in the Last Year: Never true Transportation Needs: No Transportation Needs (10/20/2023) PRAPARE - Transportation Lack of Transportation (Medical): No Lack of Transportation (Non-Medical): No Physical Activity: Not on file Stress: Not on file Social Connections: Not on file Intimate Partner Violence: Not At Risk (10/20/2023) Humiliation, Afraid, Rape, and Kick questionnaire Fear of Current or Ex-Partner: No Emotionally Abused: No Physically Abused: No Sexually Abused: No Housing Stability: Low Risk (10/20/2023) Housing Stability Vital Sign Unable to Pay for Housing in the Last Year: No Number of Places Lived in the Last Year: 1 Unstable Housing in the Last Year: No Allergies No Known Allergies Medications Current Outpatient Medications: Aspirin 325 MG tablet, Take 1 tablet by mouth daily., Disp: 30 tablet, Rfl: 2 Multiple Vitamin (multivitamin) capsule, Take 1 capsule by mouth daily., Disp: , Rfl: Rosuvastatin 20 MG tablet, Take 1 tablet by mouth daily., Disp: 30 tablet, Rfl: 0 Vitamin D, Cholecalciferol, 25 MCG (1000 UT) tablet, Take 1 tablet by mouth daily., Disp: , Rfl: vitamin E 400 units capsule, Take 1 capsule by mouth daily., Disp: , Rfl: Review of Systems Data obtained from the patient and/or patient labor service representative Neurological: positive - Per HPI Physical Exam Vitals: 12/10/23 0838 BP: 132/78 Pulse: 76 Resp: 14 Temp: 98 degrees F (36.7 degrees C) TempSrc: Temporal SpO2: 96% Weight: 86.7 kg (191 lb 3.2 oz) Height: 1.829 m (6') General appearance - alert, well appearing, and in no distress Eyes - EOMI, visual tanner full, PERRL HENT - Normocephalic, atraumatic, hearing normal and equal bilateral, mucous membranes moist, pharynx normal without lesions Neurologic: A&O x4, speech fluent, naming and repetition intact, able to perform simple math, face motor symmetrical, tongue midline, equal uvula rise, no dysarthria, sensation grossly intact to light touch, Romberg sign negative, Stable gait and station, moving all extremities with full strength I personally reviewed the following Imaging: MRI Brain, orbit 11/18/2023 -Two acute punctate infarctions, one in the right parietal lobe and the other in the left frontal lobe. -Orbital examination does not demonstrate any acute abnormalities. Suspected 3 mm venous varix/outpouching on the right. - There are 2 tiny foci of reduced diffusivity, one located in the right postcentral gyrus, and the other in the subcortical white matter the left frontal lobe. These areas have corresponding hyperintense FLAIR signal and are most consistent with acute infarcts. Assessment: This is a 63 y.o. 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 - he was educated on the symptoms to monitor for and when to report to the ED - there is no specific need for routine follow up with neurosurgery. - continue care with neuro-ophthalmology - for the tiny ischemic stroke he should continue aspirin, statin and htn control. - if there are further stroke concerns he should establish with stroke neurology. [facility]: 12[facility]10-2023 History and physical note Chief Complaint Chief Complaint Patient presents with New Patient Had 2 mini strokes History of Present Illness Afsaneh Bowers is a 63 y.o. 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 he was referred to [facility] for further evaluation and treatment. Past Medical History Past Medical History: Diagnosis Date Arthritis CAD (coronary artery disease) Cardiac angina Essential hypertension, benign GERD (gastroesophageal reflux disease) Heart valve disease Hyperlipidemia HI (myocardial infarction) Vascular disease Past Surgical History Past Surgical History: Procedure Laterality Date REPAIR ASCENDING AORTA ANEURYSM W/ VALVE-SPARING ROOT REPAIR OR SUSPENSION Midline 11/13/2023 Laterality: Midline; Surgeon: Ani Ríos MD (John); Location: [facility] MAIN OR HEART CATHETERIZATION 10/22/2023 KNEE SURGERY Left SHOULDER SURGERY Left Rotator cuff Family History Family History Problem Relation Age of Onset Colorectal Cancer Mother Vision Problems Mother Heart Disease - Other Father Prostate Cancer Father Colorectal Cancer Maternal Grandmother Vision Problems Maternal Grandmother Social History Social History Socioeconomic History Marital status: Single Spouse name: Not on file Number of children: Not on file Years of education: Not on file Highest education level: Not on file Occupational History Not on file Tobacco Use Smoking status: Never Passive exposure: Never Smokeless tobacco: Never Vaping Use Vaping status: Never Used Substance and Sexual Activity Alcohol use: Never Drug use: Never Sexual activity: Yes Partners: Female control/protection: Pill, Surgical Other Topics Concern Not on file Social History Narrative Not on file Social Determinants of Health Financial Resource Strain: Not on file Food Insecurity: No Food Insecurity (10/20/2023) Hunger Vital Sign Worried About Running Out of Food in the Last Year: Never true Ran Out of Food in the Last Year: Never true Transportation Needs: No Transportation Needs (10/20/2023) PRAPARE - Transportation Lack of Transportation (Medical): No Lack of Transportation (Non-Medical): No Physical Activity: Not on file Stress: Not on file Social Connections: Not on file Intimate Partner Violence: Not At Risk (10/20/2023) Humiliation, Afraid, Rape, and Kick questionnaire Fear of Current or Ex-Partner: No Emotionally Abused: No Physically Abused: No Sexually Abused: No Housing Stability: Low Risk (10/20/2023) Housing Stability Vital Sign Unable to Pay for Housing in the Last Year: No Number of Places Lived in the Last Year: 1 Unstable Housing in the Last Year: No Allergies No Known Allergies Medications Current Outpatient Medications: Aspirin 325 MG tablet, Take 1 tablet by mouth daily., Disp: 30 tablet, Rfl: 2 Multiple Vitamin (multivitamin) capsule, Take 1 capsule by mouth daily., Disp: , Rfl: Rosuvastatin 20 MG tablet, Take 1 tablet by mouth daily., Disp: 30 tablet, Rfl: 0 Vitamin D, Cholecalciferol, 25 MCG (1000 UT) tablet, Take 1 tablet by mouth daily., Disp: , Rfl: vitamin E 400 units capsule, Take 1 capsule by mouth daily., Disp: , Rfl: Review of Systems Data obtained from the patient and/or patient labor service representative Neurological: positive - Per HPI Physical Exam Vitals: 12/10/23 0838 BP: 132/78 Pulse: 76 Resp: 14 Temp: 98 degrees F (36.7 degrees C) TempSrc: Temporal SpO2: 96% Weight: 86.7 kg (191 lb 3.2 oz) Height: 1.829 m (6') General appearance - alert, well appearing, and in no distress Eyes - EOMI, visual tanner full, PERRL HENT - Normocephalic, atraumatic, hearing normal and equal bilateral, mucous membranes moist, pharynx normal without lesions Neurologic: A&O x4, speech fluent, naming and repetition intact, able to perform simple math, face motor symmetrical, tongue midline, equal uvula rise, no dysarthria, sensation grossly intact to light touch, Romberg sign negative, Stable gait and station, moving all extremities with full strength I personally reviewed the following Imaging: MRI Brain, orbit 11/18/2023 -Two acute punctate infarctions, one in the right parietal lobe and the other in the left frontal lobe. -Orbital examination does not demonstrate any acute abnormalities. Suspected 3 mm venous varix/outpouching on the right. - There are 2 tiny foci of reduced diffusivity, one located in the right postcentral gyrus, and the other in the subcortical white matter the left frontal lobe. These areas have corresponding hyperintense FLAIR signal and are most consistent with acute infarcts. Assessment: This is a 63 y.o. 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 - he was educated on the symptoms to monitor for and when to report to the ED - there is no specific need for routine follow up with neurosurgery. - continue care with neuro-ophthalmology - for the tiny ischemic stroke he should continue aspirin, statin and htn control. - if there are further stroke concerns he should establish with stroke neurology. documented in this encounter [facility] 11-26-2023 Telephone encounter Note Summary: RE; Questions Patient would like you to call him today when you have a moment. [facility] 11-26-2023 Miscellaneous Notes Summary: RE; Questions Patient would like you to call him today when you have a moment. documented in this encounter [facility] 11-19-2023 Miscellaneous Notes 13:40 AVS reviewed with pt and son. Pt denies further questions/ needs. Peripheral IV removed and gauze dressing applied. Pt stable at this time. 13:50 Pt escorted off unit via wheelchair by this RN. Pt remains stable. Problem: OT - ADLs Goal: Lower Body Dressing - Patient will complete lower body dressing tasks with modified independence using adaptive equipment/compensatory strategies as needed for improved ability to complete self-care activities. Outcome: Met Goal: Toileting - Patient will complete toileting task with modified independence and adaptive equipment as needed for improved ability to safely complete self-care activities. Outcome: Met Goal: Bathing - Patient will perform full body bathing routine with modified independence for improved ability to complete self-care activities Outcome: Met Problem: OT - Transfers Goal: Transfers Toilet/ Bedside Commode - Patient will transfer to/from toilet/bedside commode with modified independence for improved ability to safely complete ADLs. Outcome: Met Problem: OT - Balance Goal: Balance - Standing - Patient will perform 5 minutes of functional task in standing with modified independence and good balance to promote safety and improved balance required for self-care activities. Outcome: Met Problem: OT - Other Goal: Precaution Adherence - Patient will demonstrate 100% adherence to precautions during all ADLs and functional transfers to promote safety during daily routine. Outcome: Met OPHTHALMOLOGY PLAN OF CARE Afsaneh Bowers is a 63 y.o. male with h/o CAD, HTN, HLD, vascular disease, macular degeneration who was admitted on 11/13/23 to [facility] for planned ascending aortic aneurysm with valve sparing root repair. Ophthalmology was consulted to evaluate for visual field defect s/p surgery. Imaging studies reviewed. MRI brain and orbits WWO: There are 2 tiny foci of reduced diffusivity, one located in the right postcentral gyrus, and the other in the subcortical white matter the left frontal lobe. These areas have corresponding hyperintense FLAIR signal and are most consistent with acute infarcts. There is no orbital mass or abnormal enhancement along the course of the optic nerves, chiasm and optic tracts. 3 mm T2 hyperintense rounded dilation that appears directly connected to the orbital vein likely represents a small venous outpouching or varix within the posterior aspect of the right orbit. Finding is almost certainly benign. MRA head/neck: normal PLAN Unclear etiology of patient's central scotoma. No evidence of macular edema, mac hole, or other retinal pathology to explain central scotoma. Imaging findings above with evidence of orbital vein which is unlikely to cause his visual disturbance. Clinical exam without rAPD, subjective rAPD, or optic disc abnormality. GCA ROS negative, and ESR/CRP elevation is confounded by recent cardiac surgery. No evidence of optic nerve enhancement on MRI studies above. Cardiac surgery service recommended outpatient neurovascular follow-up. Recommend outpatient follow-up with neuro-ophthalmology in 3-4 weeks for repeat exam, HVF, OCTm, OCT RNFL. Plan discussed with Dr. Finney. Mattie Ellison MD ([place]) PGY-2, Ophthalmology [facility] [place] Problem: Patient Care Overview Goal: Plan of Care Review Outcome: Progressing Goal: Individualization & Mutuality Outcome: Progressing Goal: Discharge Needs Assessment Outcome: Progressing Goal: Interdisciplinary Rounds/Family Conf Outcome: Progressing [facility] [id number] patient is discharging to home this morning cardiac surgery would like to have you evaluate patient's vision prior to leaving hospital. Please call Pasha at [phone]. Thanks Donna [phone] Problem: OT - ADLs Goal: Toileting - Patient will complete toileting task with modified independence and adaptive equipment as needed for improved ability to safely complete self-care activities. Outcome: Progressing Goal: Bathing - Patient will perform full body bathing routine with modified independence for improved ability to complete self-care activities Outcome: Progressing Problem: OT - Transfers Goal: Transfers Toilet/ Bedside Commode - Patient will transfer to/from toilet/bedside commode with modified independence for improved ability to safely complete ADLs. Outcome: Progressing Problem: OT - Balance Goal: Balance - Standing - Patient will perform 5 minutes of functional task in standing with modified independence and good balance to promote safety and improved balance required for self-care activities. Outcome: Progressing Problem: OT - Other Goal: Precaution Adherence - Patient will demonstrate 100% adherence to precautions during all ADLs and functional transfers to promote safety during daily routine. Outcome: Ongoing Procedure: Chest Tube Removal Note Mediastinal number: 1 Pre-Procedure Assessment Order present: yes Pre-procedure site assessment: Appearance: pink Drainage amount: 0 mL Other: Pre-procedure respiratory assessment: patient without mechanical ventilation, without respiratory distress Post-Procedure Assessment Post-procedure respiratory assessment: patient without mechanical ventilation, without respiratory distress Application of sterile occlusive dressing: yes Patient tolerated procedure: yes Chest X-ray order (if indicated): n/a Notes: Mediastinal chest tube number 1 removed per order & policy without complication. Tomas Henry RN [id number] Procedure Temporary Epicardial Pacer Wire Removal Wire removal type: ventricular Pre-Procedure Assessment Pre-procedure INR (within 24 hours): 1.5 Order present: yes, order to pull Heparin Infusion off for N/A hours Current ECG rhythm at time of removal: NSR Post-Procedure Vitals Patients should remain on bedrest for 1 hour after removal with vital signs q15 minutes x2, then q30 minutes x1 Patient tolerated procedure: yes Unexpected outcomes: no Notes: HOB flat, no ectopy, vital signs per protocol Bety Chung RN Problem: Patient Care Overview Goal: Plan of Care Review Outcome: Progressing Goal: Individualization & Mutuality Outcome: Progressing Goal: Discharge Needs Assessment Outcome: Progressing Goal: Interdisciplinary Rounds/Family Conf Outcome: Progressing Problem: CABG/Valve (Adult) Goal: Signs and Symptoms of Listed Potential Problems Will be Absent or Manageable Description: Signs and symptoms of listed potential problems will be absent or manageable by discharge/transition of care. Outcome: Progressing Goal: Stable Weight Description: Patient will demonstrate the desired outcomes by discharge/transition of care. Outcome: Progressing Problem: Diabetes, Type 2 (Adult) Goal: Signs and Symptoms of Listed Potential Problems Will be Absent, Minimized or Managed (Diabetes, Type 2) Description: Signs and symptoms of listed potential problems will be absent, minimized or managed by discharge/transition of care (reference Diabetes, Type 2 (Adult) CPG). Outcome: Progressing Problem: Dysphagia (Adult) Goal: Identify Related Risk Factors and Signs and Symptoms Description: Related risk factors and signs and symptoms are identified upon initiation of Human Response Clinical Practice Guideline (CPG) Outcome: Progressing Goal: Functional/Safe Swallow Description: Patient will demonstrate the desired outcomes by discharge/transition of care. Outcome: Progressing Goal: Compensatory Techniques to Improve Safety/Function with Swallowing Description: Patient will demonstrate the desired outcomes by discharge/transition of care. Outcome: Progressing Problem: Pain, Acute (Adult) Goal: Identify Related Risk Factors and Signs and Symptoms Description: Related risk factors and signs and symptoms are identified upon initiation of Human Response Clinical Practice Guideline (CPG) Outcome: Progressing Goal: Acceptable Pain Control/Comfort Level Description: Patient will demonstrate the desired outcomes by discharge/transition of care. Outcome: Progressing Problem: Fall/Trauma/Injury Risk (Adult) Goal: Fall/Trauma/Injury Risk: Absence of Trauma/Injury/Falls Description: Patient will demonstrate the desired outcomes. Outcome: Progressing Goal: Knowledge of risk factors/behavior modification Description: Knowledge of risk factors/behavior modification for fall/injury prevention Outcome: Progressing Problem: Nutrition, Imbalanced: Inadequate Oral Intake (Adult) Goal: Identify Related Risk Factors and Signs and Symptoms Description: Related risk factors and signs and symptoms are identified upon initiation of Human Response Clinical Practice Guideline (CPG) Outcome: Progressing Goal: Improved Oral Intake Description: Patient will demonstrate the desired outcomes by discharge/transition of care. Outcome: Progressing Goal: Prevent Further Weight Loss Description: Patient will demonstrate the desired outcomes by discharge/transition of care. Outcome: Progressing Problem: Infection, Risk/Actual (Adult) Goal: Identify Related Risk Factors and Signs and Symptoms Description: Related risk factors and signs and symptoms are identified upon initiation of Human Response Clinical Practice Guideline (CPG) Outcome: Progressing Goal: Infection Prevention/Resolution Description: Patient will demonstrate the desired outcomes by discharge/transition of care. Outcome: Progressing Problem: Mobility, Physical Impaired (Adult) Goal: Identify Related Risk Factors and Signs and Symptoms Description: Related risk factors and signs and symptoms are identified upon initiation of Human Response Clinical Practice Guideline (CPG) Outcome: Progressing Goal: Enhanced Mobility Skills Description: Patient will demonstrate the desired outcomes by discharge/transition of care. Outcome: Progressing Goal: Enhanced Functionality Ability Description: Patient will demonstrate the desired outcomes by discharge/transition of care. Outcome: Progressing Problem: Skin Integrity Impairment, Risk/Actual (Adult) Goal: Identify Related Risk Factors and Signs and Symptoms Description: Related risk factors and signs and symptoms are identified upon initiation of Human Response Clinical Practice Guideline (CPG) Outcome: Progressing Goal: Skin Integrity/Wound Healing Description: Patient will demonstrate the desired outcomes by discharge/transition of care. Outcome: Progressing Problem: Patient Care Overview Goal: Plan of Care Review Outcome: Progressing Goal: Individualization & Mutuality Outcome: Progressing Goal: Discharge Needs Assessment Outcome: Progressing Goal: Interdisciplinary Rounds/Family Conf Outcome: Progressing Problem: CABG/Valve (Adult) Goal: Signs and Symptoms of Listed Potential Problems Will be Absent or Manageable Description: Signs and symptoms of listed potential problems will be absent or manageable by discharge/transition of care. Outcome: Progressing Goal: Stable Weight Description: Patient will demonstrate the desired outcomes by discharge/transition of care. Outcome: Progressing Problem: Diabetes, Type 2 (Adult) Goal: Signs and Symptoms of Listed Potential Problems Will be Absent, Minimized or Managed (Diabetes, Type 2) Description: Signs and symptoms of listed potential problems will be absent, minimized or managed by discharge/transition of care (reference Diabetes, Type 2 (Adult) CPG). Outcome: Progressing Problem: Pain, Acute (Adult) Goal: Identify Related Risk Factors and Signs and Symptoms Description: Related risk factors and signs and symptoms are identified upon initiation of Human Response Clinical Practice Guideline (CPG) Outcome: Progressing Goal: Acceptable Pain Control/Comfort Level Description: Patient will demonstrate the desired outcomes by discharge/transition of care. Outcome: Progressing Problem: Fall/Trauma/Injury Risk (Adult) Goal: Fall/Trauma/Injury Risk: Absence of Trauma/Injury/Falls Description: Patient will demonstrate the desired outcomes. Outcome: Progressing Goal: Knowledge of risk factors/behavior modification Description: Knowledge of risk factors/behavior modification for fall/injury prevention Outcome: Progressing Problem: Nutrition, Imbalanced: Inadequate Oral Intake (Adult) Goal: Identify Related Risk Factors and Signs and Symptoms Description: Related risk factors and signs and symptoms are identified upon initiation of Human Response Clinical Practice Guideline (CPG) Outcome: Progressing Goal: Improved Oral Intake Description: Patient will demonstrate the desired outcomes by discharge/transition of care. Outcome: Progressing Goal: Prevent Further Weight Loss Description: Patient will demonstrate the desired outcomes by discharge/transition of care. Outcome: Progressing Problem: Infection, Risk/Actual (Adult) Goal: Identify Related Risk Factors and Signs and Symptoms Description: Related risk factors and signs and symptoms are identified upon initiation of Human Response Clinical Practice Guideline (CPG) Outcome: Progressing Goal: Infection Prevention/Resolution Description: Patient will demonstrate the desired outcomes by discharge/transition of care. Outcome: Progressing Problem: Mobility, Physical Impaired (Adult) Goal: Identify Related Risk Factors and Signs and Symptoms Description: Related risk factors and signs and symptoms are identified upon initiation of Human Response Clinical Practice Guideline (CPG) Outcome: Progressing Goal: Enhanced Mobility Skills Description: Patient will demonstrate the desired outcomes by discharge/transition of care. Outcome: Progressing Goal: Enhanced Functionality Ability Description: Patient will demonstrate the desired outcomes by discharge/transition of care. Outcome: Progressing Problem: Skin Integrity Impairment, Risk/Actual (Adult) Goal: Identify Related Risk Factors and Signs and Symptoms Description: Related risk factors and signs and symptoms are identified upon initiation of Human Response Clinical Practice Guideline (CPG) Outcome: Progressing Goal: Skin Integrity/Wound Healing Description: Patient will demonstrate the desired outcomes by discharge/transition of care. Outcome: Progressing Problem: OT - Balance Goal: Balance - Standing - Patient will perform 5 minutes of functional task in standing with modified independence and good balance to promote safety and improved balance required for self-care activities. Outcome: Progressing Problem: OT - Other Goal: Precaution Adherence - Patient will demonstrate 100% adherence to precautions during all ADLs and functional transfers to promote safety during daily routine. Outcome: Progressing Problem: Patient Care Overview Goal: Plan of Care Review Outcome: Progressing Note: Vital signs completed per protocol. Monitoring intake and output q1h. Assessing pain q4h and medicate prn. Obtaining daily weights. Labs completed per protocol and will report any abnormal values to physician. Will continue hourly rounding per hospital protocol. Plan of care reviewed and updated with patient and patient demonstrates understanding. Goal: Individualization & Mutuality Outcome: Progressing Goal: Discharge Needs Assessment Outcome: Progressing Goal: Interdisciplinary Rounds/Family Conf Outcome: Progressing Problem: OT - ADLs Goal: Lower Body Dressing - Patient will complete lower body dressing tasks with modified independence using adaptive equipment/compensatory strategies as needed for improved ability to complete self-care activities. Outcome: Progressing Goal: Toileting - Patient will complete toileting task with modified independence and adaptive equipment as needed for improved ability to safely complete self-care activities. Outcome: Progressing Goal: Bathing - Patient will perform full body bathing routine with modified independence for improved ability to complete self-care activities Outcome: Progressing Problem: OT - Transfers Goal: Transfers Toilet/ Bedside Commode - Patient will transfer to/from toilet/bedside commode with modified independence for improved ability to safely complete ADLs. Outcome: Progressing Problem: OT - Balance Goal: Balance - Standing - Patient will perform 5 minutes of functional task in standing with modified independence and good balance to promote safety and improved balance required for self-care activities. Outcome: Progressing Problem: OT - Other Goal: Precaution Adherence - Patient will demonstrate 100% adherence to precautions during all ADLs and functional transfers to promote safety during daily routine. Outcome: Progressing Problem: PT - General Goals Goal: Supine <-> Sit Transfers - Patient will perform supine to/from sit transfers with independence and without use of hospital bed features in order to improve functional mobility and safety. Outcome: Ongoing Goal: Sit <-> Stand Transfers - Patient will perform sit to/from stand transfers with modified independence and least restrictive device in order to improve functional mobility and safety. Outcome: Ongoing Goal: Ambulation - Patient will ambulate 400 feet with modified independence and least restrictive device to improve ability to safely navigate home and community. Outcome: Ongoing Problem: Patient Care Overview Goal: Plan of Care Review Outcome: Progressing Goal: Individualization & Mutuality Outcome: Progressing Goal: Discharge Needs Assessment Outcome: Progressing Goal: Interdisciplinary Rounds/Family Conf Outcome: Progressing Problem: Diabetes, Type 2 (Adult) Goal: Signs and Symptoms of Listed Potential Problems Will be Absent, Minimized or Managed (Diabetes, Type 2) Description: Signs and symptoms of listed potential problems will be absent, minimized or managed by discharge/transition of care (reference Diabetes, Type 2 (Adult) CPG). Outcome: Progressing Problem: Dysphagia (Adult) Goal: Identify Related Risk Factors and Signs and Symptoms Description: Related risk factors and signs and symptoms are identified upon initiation of Human Response Clinical Practice Guideline (CPG) Outcome: Progressing Goal: Functional/Safe Swallow Description: Patient will demonstrate the desired outcomes by discharge/transition of care. Outcome: Progressing Goal: Compensatory Techniques to Improve Safety/Function with Swallowing Description: Patient will demonstrate the desired outcomes by discharge/transition of care. Outcome: Progressing On admission to ICU, from OR a dual RN initial assessment of skin condition was performed by Soy Orlando RN and Bety Garces RN . Skin Assessment: Skin within defined limits:Yes Larry Score: 13 LDA Added:No Soy Orlando RN Cardiac Surgery Postop Plan of Care Wires Ventricular - pull Tubes (right to left of patient) 1. Mediastinal straight chest tube 2. Mediastinal straight chest tube Other ASA alone Images from the original note were not included. Operative Report DATE PERFORMED: 11/13/2023 SURGEON(S): Ani Ríos MD (John). ASSISTANTS: 1. Fracisco Andrade MD, PHD. 2. RODOLFO De León. ANESTHESIOLOGY: Liberty Feliciano MD. PREOPERATIVE DIAGNOSES: 1. Aortic root dilation, 59 mm. 2. Ascending aortic aneurysm, 46 mm. 3. Moderate to severe aortic insufficiency. 4. Mild nonsignificant coronary artery disease. PROCEDURES PERFORMED: 1. Valve-sparing aortic root replacement (remodeling technique, 34 mm Gelweave Valsalva graft). 2. Replacement, ascending aorta. 3. Replacement, aortic arch, as a ebony-arch procedure with control of head and neck vessels (26 mm Ante-Valdemar graft). 4. Aortic valve repair. 5. Hypothermic circulatory arrest with antegrade cerebral perfusion via the innominate artery. PREOPERATIVE NOTE: Mr. 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 He was seen and investigated, and found to have mild, nonsignificant coronary artery disease, and because of his symptoms, we measured fractional flow using a guidewire to make sure that he did not have coronary artery disease of significance, and the FFR suggested none of his coronary arteries were significantly narrowed. As well, during investigations, he was identified as having moderate to severe central aortic insufficiency due to significant aortic root dilation. A CT scan confirmed the 59 mm aortic root and the enlarged ascending aorta. He was consented for the procedure we performed today. DESCRIPTION OF PROCEDURE: Afsaneh was brought to the operating room, placed supine on the operating table, and intravenous lines and cardiac monitoring were established. He was anesthetized and intubated with a single-lumen endotracheal tube, and a purposeful surgical pause was carried out. He was prepped and draped in a sterile fashion, and a midline sternal incision was made and taken down to the sternum with electrocautery, whereupon the sternum was divided with a saw. A Aamir retractor was placed, and the pericardium was opened. The innominate artery was encircled with an umbilical polyester tape as was the innominate vein. Heparin was given and allowed to circulate. Pursestring sutures were placed in the innominate artery, in the ascending aorta, and in the right atrium. The arterial line was spliced to allow for 2 arterial inflows. Using a Seldinger technique, a 16-Lebanese OptiSite cannula was inserted into the innominate artery to sit 3 cm deep. It was secured in place with pursestring sutures and attached to one of the arterial limbs of the cardiopulmonary bypass circuit. A 20-Lebanese EOPA cannula was inserted, again, using a Seldinger technique, this time with echocardiographic confirmation of placement. The cannula was inserted to sit in the proximal descending thoracic aorta after crossing the aortic arch and being inserted in the ascending aorta. This was attached to the 2nd arterial limb of the cardiopulmonary bypass circuit. A 34/46-Lebanese 2-stage venous cannula was inserted through the right atrium to sit in the IVC, and attached to the venous limb. A cardioplegia/vent line was placed in the more proximal ascending aorta, and once an adequate ACT had been achieved, cardiopulmonary bypass was started. The aortic cross-clamp was applied, and Del Nido cardioplegia was instilled into the aortic root to achieve a cardiac arrest. Despite the aortic insufficiency, a cardiac arrest was achieved after about 400 cc, and we gave a total of 1200 cc while decompressing the ventricle. We then opened up the aorta and provided another 600 cc of [place] Nido cardioplegia directly into the 2 coronary ostia with ostial perfusion cannulas. We immediately started cooling down towards 28 degrees nasopharyngeal temperature. As we were cooling, we inspected the aortic valve and saw it was trileaflet with a very light prolapse to the right coronary cusp. The 2 coronary ostia were displaced quite superiorly, essentially out of the coronary sinus. The coronary buttons were fashioned, and the noncoronary sinus was resected. The distance between the basal sinus ring at the AV junction to the top of the commissure between the left and non-coronary cusps was measured. It measured about 34 mm, and the 34 mm Valsalva graft was brought into the field. The Valsalva graft was trimmed to allow for 3 scallops to correspond to the coronary sinuses that were resected from the proximal aorta. By this point, we had achieved our target temperature of 28 degrees nasopharyngeal temperature, and we proceeded to go with a head down position. The base of the innominate artery was clamped with a vascular clamp, and this did not affect our cerebral oximetry. We then decreased flow to 1 L/minute, and clamped the EOPA cannula directing all 1 L of blood flow into the innominate artery cannula, and this too did not affect our cerebral oximetry. We then removed the aortic cross-clamp, opened the aorta, and removed the EOPA cannula. The aorta was transected flush with the level of the origin of the innominate artery. The open distal aorta was sized for a 26 mm Ante-Valdemar graft which was brought into the field and trimmed to length. Using 4-0 Prolene suture, the distal anastomosis was fashioned, and after creation of the anastomosis, the side-arm of the Ante-Valdemar graft was recannulated with the 20-Lebanese EOPA cannula, de-aired and clamped, and we restored full cardiopulmonary bypass, ending our circulatory arrest time at 17 minutes, all of which was antegrade cerebral perfusion protected. The clamp on the base of the innominate artery was released, and we turned our attention to the proximal aorta. The scalloped Valsalva graft was sewn to the rim of aortic tissue left above the aortic anulus using 4-0 Prolene suture, starting the suture at the mary ellen of the left coronary cusp remnant. The 2 limbs of the sutures were brought up to the belly of the left coronary sinus up towards the commissure on the right and the commissure on the non-coronary side. Similarly, another suture was started at the mary ellen of the non-coronary cusp remnant aortic tissue, and then brought up to meet its partner from the left side, and the suture was tied. The other arm was brought up to the commissure on the right, and finally, another 4-0 Prolene suture was used to start at the mary ellen of the right coronary sinus remnant aortic tissue, and each arm was brought up to meet its corresponding partner on the other side, and the sutures were tied at the apex of the commissures. A 2nd running suture line was used with another 4-0 Prolene suture for hemostasis. A 2nd dose of Del Nido cardioplegia was instilled directly into the coronary ostia for a total of 1000 cc. A repair stitch was placed on the right coronary cusp leaflet to plicate the belly of the valve. This seemed to create undue tension on the leaflet, so it was removed. A defect was created in the Valsalva graft to correspond to the left coronary button, which was then anastomosed to the graft using running 6-0 Prolene suture. Another defect was created to correspond to the right coronary button, which was also sewn to the graft using running 6-0 Prolene suture. The graft was clamped and tested with a pressure test by inserting the cardioplegia cannula into the graft and clamping it and bringing pressure up to 200, and the ventricle did not dilate with this. We then trimmed the distal 26 mm graft and the proximal 34 mm graft, and anastomosed them to 1 another using running 4-0 Prolene suture, and after creation of the anastomosis, de-airing maneuvers were performed, and the aortic cross-clamp was released, ending our myocardial ischemic time at 156 minutes. Ventricular pacing wire was placed on the diaphragmatic surface of the heart and brought out through the skin to the left of midline by the costal margin, and we weaned from cardiopulmonary bypass. Total bypass time was 172 minutes. After separation of cardiopulmonary bypass, the innominate artery cannula was removed, and the pursestring suture tied down. The venous cannula was removed, and its pursestring suture was tied down, and then we provided protamine to reverse the heparin. Once all the protamine had been delivered and volume from the pump returned to the patient, the side arm of the inflow graft was tied flush, and a 4 cm segment was left for potential future use if ever needed. Two chest tubes were placed, 32-Lebanese straights, and blood product provided as directed by the THERESE. The aortic valve was assessed with echocardiography and found to have trace to mild aortic insufficiency. The mean gradient was 3. The sternum was reapproximated with stainless steel wires. The presternal fascia was closed in layers, and the skin was reapproximated with Monocryl subcuticular stitch. Counts were reported correct. Pump times: Hypothermic circulatory arrest without antegrade cerebral perfusion 0 minutes. Hypothermic circulatory arrest with antegrade cerebral perfusion 17 minutes. Aortic cross-clamp time 156 minutes. Cardiopulmonary bypass time 172 minutes. DRAINS: Two 32-Lebanese straight chest tubes, both mediastinal. ESTIMATED BLOOD LOSS: Difficult to assess because of Cell Saver use. BLOOD PRODUCTS PROVIDED: 2 units of cryoprecipitate. PROSTHESES USED: 1. 34 mm Gelweave Valsalva graft [id number] (Serial # [id number]). 2. 26 mm Anteflo Gelweave graft [id number] (serial # [id number]). ATTESTATION: I was present or readily available throughout this operation. Dictated By: MD Ani Knight MD (John John) ATTENDING J(B/MedQ JOB: [id number] DOC: [id number] Afsaneh Bowers ([id number]) PRE OPERATIVE DIAGNOSIS Aneurysm, ascending aorta [I71.21] POST OPERATIVE DIAGNOSIS Aneurysm, ascending aorta [I71.21] PROCEDURE PERFORMED Procedure(s) (LRB): REPAIR ASCENDING AORTA ANEURYSM W/ VALVE-SPARING ROOT REPAIR OR SUSPENSION (Midline) PRIMARY CLOSURE Yes INTRAOPERATIVE FINDINGS Remodeling technique valve sparing aortic root repair (Ninoska) hemiarch with 34 mm and 26 mm grafts CPBT= 173 min XCT = 157 mi DHCA with ACP = 17 min Cooled to 28C V-wires Meds x 2 SURGEON Surgeons and Role: * Ani Ríos MD (John) - Primary ANESTHESIOLOGIST Anesthesiologist: Liberty Feliciano MD Corporate Learning Consultant Assisting: Chen Smyth DO; Moris Arellano MD Cager Operator: Seymour Trivedi; Earl Woods SURGICAL STAFF Brick Paving Checker: Cari West RN; Silke Dickinson, LORE Registered Nurse Loan Associate: Jason Mahajan SQUARING MACHINE OPERATOR; CECILIA GarcíaA Relief Brick Paving Checker: Polina Garcia RN; Cecilia Arango RN Relief Scrub: Narda Whiteside Scrub Person: Ancelmo Summers Resident Assisting: Fracisco Andrade MD, PhD COMPLICATIONS None ESTIMATED BLOOD LOSS Unable to estimate due to CPB ml SPECIMENS As below ID Type Source Tests Collected by Time Destination 1 : Aorta Permanent SURG PATH SURG PATH REQUEST Ani Ríos MD (John) 11/13/2023 [id number] Fracisco Andrade MD, PhD November 13, 2023 3:06 PM documented in this encounter [facility] 11-19-2023 History of Present illness Narrative CARDIAC SURGERY NOTE POD 6 VSRR - ascending aorta hemiarch replacement Doing well and ready to go home. He was having visual disturbance and ophthalmology saw and signed off. MRI brain saw a 3 mm outpouching from orbit and we are arranging for neurosurgery outpatient visit. Sitting up in chair this morning. Echo done - mild AI noted. Cr 0.81 GFR >90 Hgb 9.9 PLAN: Discharge planning and follow up with neurosurgery. Chilango Ríos MD Acute Physical Therapy Treatment Prior to Admission AMPAC score(s): PRIOR LEVEL AM-PAC Mobility Raw Score: 24 PRIOR LEVEL AM-PAC Activity Raw Score: 24 Current AM-PAC score(s): CURRENT AM-PAC Mobility Raw Score: 20 Based on the above AM-PAC score(s) and PT clinical judgment, patient is a good candidate for discharge to Home Nursing Notes: Pt requires 1 person assistance + Rollator to perform 30 of Ambulation this date Mobility equipment available at home: ADL equipment available at home: grab bars Equipment needed for discharge: Current therapy frequency recommendation in acute: Therapy Frequency: 2 times a week Precautions and Weightbearing Status: Existing Precautions/Restrictions: cardiac, standard sternal Telemetry Patient Safety Communication Prior to Visit: Nursing Subjective: Patient reported son will be there to assist him on stairs at home as needed Pain: General Pain Documentation (Adult, OB, Peds) Presence of Pain: denies pain/discomfort Presence of Pain Score (Auto-calculated): 0 DVPRS (Defense and Veterans Pain Rating Scale) DVPRS: Rest: 0- no pain Objective/Observation: Vitals/Vitals Responses to Treatment: VSS O2 Device: room air Cognition Overall Cognitive Status: Within Functional Limits Arousal/Alertness: Appropriate responses to stimuli Orientation Level: Oriented X4 Following Commands: Follows all commands and directions without difficulty Safety Judgment: Good awareness of safety precautions Cognition Comments: pleasant, cooperative Extremity Assessments: See PT Evaluation flowsheet for Extremity Measurement updates. Skin and Edema: Balance: Sitting Balance Static Sitting-Level of Assistance: Independent Dynamic Sitting-Level of Assistance: Independent Standing Balance Static Standing-Level of Assistance: Independent Dynamic Standing-Level of Assistance: Supervision Standing-Balance Support: (no AD) Mobility Assessment/Intervention: Transfer Assessment/Intervention: Sit to Stand Transfer Bremer Level: Sit->Stand: modified independence Skilled Rationale: Verbal cues, Hand placement, Facilitate anterior shift, Full extension to upright positioning/posture Skilled Intervention/Details: Sit->Stand: performed from couch within sternal precautions Stand to Sit Transfer Bremer Level: Stand->Sit: modified independence Skilled Rationale: Positioning, Verbal cues Skilled Intervention/Details: Stand->Sit: cues for improved alignment to seated surface Gait/Functional Mobility Assessment/Intervention: Gait Assessment Bremer Level: Gait: supervision Ambulation Distance (Feet): 30 Gait Deviations Identified: decreased jennifer, decreased gait speed, flexed posture Gait Skilled Rationale: verbal, upright posture, proximity of assistive device Skilled Intervention/Details - Gait: Patient performed without AD to challenge balance, patient demonstrated slow gait pattern in room but without LB. Minor cues for safety for in room obstacles Stairs Assessment/Intervention: Stairs Assessment Bremer Level: Stair Negotiation: contact guard assist, stand-by assist Assistive Device: Stair Negotiation: (UE on counter for balance only) Number of stairs: 4 Stairs Skilled Rationale: verbal, demonstration, nonreciprocal pattern, increase foot clearance, general safety Skilled Intervention/Details - Stairs: Patient instructed on stair training through demonstration and verbal cues for increased foot clearance and pacing Outcome Score(s): CURRENT [facility] Basic Mobility Inpatient Short Form Turning over in bed: 4 - No Assistance Sitting/standing from chair: 4 - No Assistance Moving from lying on back to sittin - A Little Assistance Moving to and from bed to chair: 3 - A Little Assistance Walk in hospital room: 3 - A Little Assistance Climbing 3-5 steps with a railin - A Little Assistance CURRENT [facility] Mobility Raw Score: 20 CURRENT [facility] Mobility Functional Limitation/Modifier: 35.83% Currently Impaired in Basic Mobility - Interventions: Intervention 1 Intervention Name: Education Details: Patient able to re-call 2/3 sternal precautions, therefore reviewed verbally and during functional mobility this date. Assessment & Plan: Patient Instruction/Education this session: Learners: Patient Education provided: Gait training safety, Stair training safety, Precautions/weight bearing status Plan for next session: progress endurance, return to PLOF Acute PT Goals Notes from 11/19/2023 1:29 AM through 11/19/2023 1:29 PM Goal: Sit <-> Stand Transfers - Patient will perform sit to/from stand transfers with modified independence and least restrictive device in order to improve functional mobility and safety. Outcome: met Goal: Ambulation - Patient will ambulate 400 feet with modified independence and least restrictive device to improve ability to safely navigate home and community. Outcome: Ongoing PT treatment consisted of the following to progress towards the above goal(s): PT Evaluation and Treatment Time Gait Training Time Entry: 10 Treating Therapist: Carmne Salomon PT Additional Details: PT Co-Eval/Treatment Information Co-evaluation/co-treatment performed?: No simultaneous skilled care performed Assisted by during session: none PPE used during patient interaction: facemask, gloves, protective eye shield Patient location at end of session: chair Alarms on at end of session: none, RN aware Needs in reach. Time In: 1259 Time Out: 1309 Total Visit Time: 10 minutes Total Treatment Time (skilled, billable minutes): 10 minutes Upon discontinuation of Acute Care Physical Therapy Services or patient discharge from the hospital this note represents the current Physical Therapy Discharge Summary. Care Management Discharge Note Selected Continued Care - Discharged on 11/19/2023 Admission date: 11/13/2023 - Discharge disposition: Home or Self Care Durable Medical Equipment Coordination complete. Service Provider Selected Services Address Phone Fax Patient Preferred [facility] ([place] Durable Medical Equipment [facility] [place] [phone] -- Met with pt @ bedside. Explained [facility] unable to find any accepting [facility] agencies. MD aware. Pt states feel he will be good without [facility] services. Confirmed Rollator has been delivered to bedside. Transportation home via family. Patient medically stable for discharge per physician/medical team. 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 Layne Toussaint RN, BSN Clinical Flash Welding Machine Operator [phone] *Please note that I am a float casework specialist and that I may not cover the same service everyday. Please call the main case management office at for up to date coverage. [facility] Coordination Note Patient received in handoff from casework specialist for potential homecare services. Referrals were already placed in aidin, awaiting responses. Timer had run out with no accepting agencies, timer extended & message sent to agencies who hadn't responded. Addendum at 1440 No accepting agencies, patient discharged home without services. Referrals cancelled in aidin. UTE Rowell RN Acute Occupational Therapy Treatment Prior to Admission AM-PAC Score: PRIOR LEVEL AM-PAC Activity Raw Score: 24 PRIOR LEVEL AM-PAC Mobility Raw Score: 24 Current AM-PAC score(s): CURRENT AM-PAC Activity Raw Score: 23 Incision care completed 11/17/2023 Based on the above AM-PAC score(s), and OT clinical judgment, discharge destination recommendation is: Home (with support from family/friends) Barriers: None RN considerations: Up ad abhilash in room Barriers to discharge home: Patient needs assistance with ADLs, Patient needs assistance with functional mobility Mobility equipment available at home: ADL equipment available at home: grab bars Equipment recommendations for discharge: to be determined Current therapy frequency recommendation(s) in acute: no therapy warranted Precautions and Weightbearing Status: OT Existing Precautions/Restrictions: standard sternal Patient Safety Communication Prior to Visit: Nursing Subjective: I might get out of here today. Pain: General Pain Documentation (Adult, OB, Peds) Presence of Pain: denies pain/discomfort Presence of Pain Score (Auto-calculated): 0 DVPRS (Defense and Veterans Pain Rating Scale) DVPRS: Rest: 0- no pain DVPRS: Activity: 0- no pain Objective/Observation: Vitals/Vitals Responses to Treatment: Vitals WFL with no abnormal signs or symptoms reported or observed throughout session Cognition Overall Cognitive Status: Within Functional Limits Arousal/Alertness: Appropriate responses to stimuli Orientation Level: Oriented X4 Following Commands: Follows all commands and directions without difficulty Safety Judgment: Good awareness of safety precautions Awareness of Errors: Good awareness of errors made Deficits: Fully aware of deficits Attention Span: Appears intact Memory: Appears intact Problem Solving: Able to problem solve independently Cognition Comments: Pleasant and cooperative throughout session. ADL Assessment/Intervention: ADLs: Eating Assistance: Independent Grooming Assistance: Bathing Assistance: Not performed Bathing Intervention/Details: Pt declined to demonstrated, however, verbalized proper technique. UE Dressing Assistance: Not performed UE Dressing Intervention/Details: Pt declined to demonstrated, however, verbalized proper technique. LE Dressing Assistance: Toilet Assistance: Extremity Assessments: See OT Evaluation flowsheet for Extremity Measurement updates. Balance: Sitting Balance Static Sitting-Level of Assistance: Independent Dynamic Sitting-Level of Assistance: Independent Skin and Edema: Skin Integrity Skin Integrity Description: Surgical incision Edema Edema: none noted Mobility Assessment/Intervention: Sit to Supine Mobility Skilled Intervention/Details: Sit->Supine: Pt declined to demonstrated, however, verbalized proper technique. Transfer Assessment/Intervention: Sit to Stand Transfer Skilled Intervention/Details: Sit->Stand: Pt declined to demonstrated, however, verbalized proper technique. Functional Mobility: Outcome Score(s): CURRENT AM-PAC Daily Activity Inpatient Short Form Putting on/Taking Off Lower Body Clothin - No Assistance Bathin - A Little Assistance Toiletin - No Assistance Putting on/Taking Off Upper Body Clothin - No Assistance Groomin - No Assistance Eatin - No Assistance CURRENT -[facility] Activity Raw Score: 23 CURRENT AM-[facility] Activity Functional Limitation/Modifier: 15.86% Currently Impaired in Daily Activity - CI Interventions: Intervention 1 Intervention Name: Sternal precaution review Details: Pt recalled 100% of standard sternal precautions including no pushing, pulling, or lifting more than 10 lbs and not reaching overhead or behind back for both arms, for 6 weeks. Pt also educated on precautions throughout functional mobility and self-care tasks this date to improve learning/carryover for task. Pt verbalizes good understanding. Assessment & Plan: Pt making good progress towards established plan of care. Patient improving with lower body dressing, upper body dressing, functional transfers, bed mobility, and energy conservation education as seen above. Pt educated on precautions and self pacing on this date. Patient Instruction/Education this session: Learners: Patient Education provided: Energy conservation strategies Teaching method: Handout provided/reviewed Patient Instruction/Education comments: Energy conservation Education Details: Pt was provided handout and educated on energy conservation strategies to save energy during functional tasks. Pt verbalized understanding. Pt verbalized understanding and expressed practicality of education provided. Tips: The way you do a task is as important as what you do. You may need to change how and when you do a task to save energy. Consider these things when doing tasks: Plan out your daily schedule. Prioritize your tasks to get the most important things done first. Pace yourself, so you can get more done. Position and posture. Sit instead of standing when you can and use good posture. Apply these 5 Ps for saving energy and the tips below in your daily life to help make tasks easier. General tips Sit when doing a task. Standing takes more energy. Do work with your arms instead of your legs. Working with your legs takes more energy. Avoid doing activities in temperatures above 80 degrees F with humidity or below 20 degrees F. Extremes of heat or cold can have a dangerous effect on your heart. Pace yourself to save energy Get at least 6 to 8 hours of sleep each night. Rest for 20 to 30 minutes at least twice a day or 10 minutes every hour. If you get tired, stop and rest for 15 minutes, whether you have finished the task or not. Trade off between easy and hard tasks or spread a task out over the day. Ask for help if the demands on your energy are too much. Hire help, if you are able to. Avoid stress as much as you can. Never kelley. Plan for next session: no additional acute care OT services warranted Acute OT Goals Plan of Care by Hung Padilla OT at 11/19/2023 10:37 AM Version 1 of 1 Problem: OT - ADLs Goal: Lower Body Dressing - Patient will complete lower body dressing tasks with modified independence using adaptive equipment/compensatory strategies as needed for improved ability to complete self-care activities. Outcome: Met Goal: Toileting - Patient will complete toileting task with modified independence and adaptive equipment as needed for improved ability to safely complete self-care activities. Outcome: Met Goal: Bathing - Patient will perform full body bathing routine with modified independence for improved ability to complete self-care activities Outcome: Met Problem: OT - Transfers Goal: Transfers Toilet/ Bedside Commode - Patient will transfer to/from toilet/bedside commode with modified independence for improved ability to safely complete ADLs. Outcome: Met Problem: OT - Balance Goal: Balance - Standing - Patient will perform 5 minutes of functional task in standing with modified independence and good balance to promote safety and improved balance required for self-care activities. Outcome: Met Problem: OT - Other Goal: Precaution Adherence - Patient will demonstrate 100% adherence to precautions during all ADLs and functional transfers to promote safety during daily routine. Outcome: Met OT treatment consisted of the following to work and progress towards the above goal(s): OT Evaluation and Treatment Time Self Care/Home Management (ADLs) Time Entry: 10 Treating Therapist: Hung Padilla OT Additional Details: OT Co-Eval/Treatment Information Co-evaluation/co-treatment performed?: No simultaneous skilled care performed PPE used during patient interaction: facemask, gloves Patient location at end of session: bed with head of bed elevated Alarms on at end of session: RN aware Needs in reach. Time In: 1037 Time Out: 1047 Total Visit Time: 10 minutes Total Treatment Time (skilled, billable minutes): 10 minutes Upon discontinuation of Acute Care Occupational Therapy Services or patient discharge from the hospital this note represents the current Occupational Therapy Discharge Summary. Inpatient Cardiopulmonary Rehab Follow Up Visit AND Activity Session Completed. RN approved, as tolerated, and patient agreeable to visit. Patient reports feeling OK without complaints. Activity Session Vitals: 11/19/23 1003 11/19/23 1011 Vital Signs BP 127/71 (rest) 133/77 (post-amb) MAP (mmHg) 94 mmHg 97 mmHg BP Method Automatic Automatic BP Location Right arm Right arm BP Position Lying Sitting Activity/Level of Assistance Amb in brian/SBA, 4-WW Ambulation Distance (feet) 240 (120+120) Symptoms Noted During/After Activity Leg fatigue Positioning Seated EOB, call light within reach Activity session details: Patient off telemetry when I arrived to room. He was able to stand from EOB with SBA. Patient ambulated 120 ft before requiring seated break due to leg fatigue. Patient reports that he feels more tired today, stating I might have overdone it walking with my sons yesterday. Discussed appropriate activity levels with patient following discharge to prevent ongoing fatigue. Patient ambulated 120 ft back to room. No other symptoms reported. RN notified/aware. Encouraged continued ambulation and discussed appropriate activity progression. Discharge education reviewed with the patient. Patient s questions/concerns addressed. Bety Wayne ([phone]) IP Cardiopulmonary & Vascular Rehab CVICU DAILY PROGRESS NOTE. HISTORY OF PRESENT ILLNESS: Mr. Bowers is a 63 y.o. male who has past medical history of HTN, HLD, CAD, and knee/shoulder ortho surgery. He recently presented to OSH with episodes of stable angina and was found to have aortic root dilation (57mm) and severe trileaflet AV AI. He was not deemed a candidate for CABG as workup revealed no vessel stenosis >60% and minimal iFR change. He presented on 11/12 for repair ascending aorta aneurysm with valve sparing root repair or suspension with Dr. Chilango Ríos. DATE OF SURGERY: 11/13/23 PROCEDURE: 1. Valve-sparing aortic root replacement (remodeling technique, 34 mm Gelweave Valsalva graft). 2. Replacement, ascending aorta. 3. Replacement, aortic arch, as a ebony-arch procedure with control of head and neck vessels (26 mm Ante-Valdemar graft). 4. Aortic valve repair. 5. Hypothermic circulatory arrest with antegrade cerebral perfusion via the innominate artery. SURGEON: Dr. 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 Including CRP, ESR, MRI brain and orbits WWO. Discharge Planning/CARLOS/Discharge Readiness: Anticipated, Home. Patient requested Home Health (no accepting facilities) Follow up: CSY + CTA chest non-coronary: 12/16 Follow up imaging TTE prior to discharge - completed 11/15 Dr. Chilango Ríos recommends home health services upon discharge including PT, OT, and long term as indicated SURGICAL PLAN Pre-op AARON: LVEF 60%, nl LV diastolic function, Atria: normal right and left Mitral valve: mild regurgitation, normal leaflets Aortic valve: Normal AV annulus (24mm), Normal leaflets, moderate AV regurgitation, no stenosis Tricuspid Valve: normal leaflets, no stenosis, trace regurgitation Pulmonic Valve: Normal annulus, leaflets, trace regurg, no stenosis, normal pulmonary artery Aorta: Asc Ao Diameter 56mm, Annulus 24mm, Ao Arch Diameter 29mm Pericardium: no effusion or abnormality Post-op AARON: No report Chest Tube Mgmt: #1: Mediastinal straight chest tubes - remove today Pacing Wires: Ventricular back up rate 40 Plan: Remove on POD 4 Sutures/Inez Plan: Prevena Remove POD 7 PA/LAT Chest X-ray: To be ordered once all chest tubes are removed OT shower complete? No consult OT once all tubes and wires are out. SYSTEM BASED PLAN . Neurological: Acute Post-Operative Pain -Pain well controlled per pt report this AM -Scheduled gabapentin for 3 days and Tylenol 650 mg Q4 hrs -PRN Oxy and tylenol. Agitation/Delirium- Overall CAM-ICU: Negative Delirium precautions Day/night sleep cycle, sleep hygiene OD Visual Changes: Opthomology consulted. Cardiovascular: Aortic root dilation (57mm) and severe trileaflet AV AI s/p Repair Ascending Aortic Aneurysm w/ Valve-Sparing Root Repair Or Suspension (Midline) - ASA, statin Hx/o CAD w/NSTEMI -LHC 10/22 w/ 60% stenosis in proximal LAD artery with an iFR of 0.98, non-significant physiologic stenosis. 40% stenosis in the first diagonal branch (wire placed in the larger inferior branch after the bifurcation) with an iFR of 0.99 representing a non-significant physiologic stenosis. There is a 20% stenosis in the proximal left circumflex artery. - ASA 325 mg daily, statin, no BB d/t BP Hypertension - Home medications: metoprolol xL 25mg daily- held - discontinue Metoprolol 12.5 mg Q12h d/t BP Orthostatic hypotension (11/14), resolved - TRAE henao Hyperlipidemia - Home Rosuvastatin 20mg daily Pulmonary: Acute post-Operative Respiratory Insufficiency (resolved) - Extubated 11/12, on RA - Incentive Spirometry while awake - Plan: Pulmonary toilet, IS use Renal: At Risk for SHERLYN d/t Ascending Aortic Aneurysm repair w/Bypass - Baseline Creatinine: 0.90 - Baseline GFR: > 90 mg/mmol - Urine output: good - Monitor chemistries - Avoid nephrotoxic agents Postoperative Hypervolemia: + 3kg, trae henao inplace Hypotensive with lasix, will discontinue.OOB, Trae henao Gastrointestinal: Acute Post Operative Constipation, resolved - Last Bowel Movement: 11/17/23 - Bowel regimen in place with scheduled miralax and senna. - PRN dulcolax suppository Diet: Current Diet Orders Procedures DIET HEART HEALTHY - 4 GM SODIUM Carb Controlled; Oral Supplement Ensure: chocolate flavor or patient's preference (does not like vanilla) Standing Status: Standing Number of Occurrences: 1 Order Specific Question: Additional Modifier: Answer: Carb Controlled Order Specific Question: Additional Modifier: Answer: Oral Supplement DIET HEART HEALTHY - 4 GM SODIUM It is normal to have a decreased appetite after surgery. Eat appealing foods until appetite returns. The body requires calories to heal. When appetite returns, focus on heart healthy foods and drinks. CARDIAC DIET: Follow a Sodium Restriction/Fluid Restriction Low Sodium (4 grams), low-fat, low-cholesterol & caffeine controlled. : Body mass index is 27.94 kg/m . Post-Operative Nausea/Vomiting (resolved) - PRN Zofran and compazine Integumentary/Musculoskeletal Active Incisions Wounds Wound Surgical 11/13/23 0808 Sternum (5) Endocrinology Post-Operative Stress Induced Hyperglycemia (resolved) - HgbA1c= 10/21/2023: Hemoglobin A1C HPLC 5.3 Euglycemic Hematology Post-operative Acute Blood Loss Anemia - No concern for ongoing blood loss - Stable H/H - CTM daily H/H, no indication for transfusion at this time Post-Operative Thrombocytopenia, resolved 11/18/2023: Platelet Count 234 - Secondary to CPB - Bleeding precautions, monitor Anticoagulation Status/Plan Indication: DVT ppx - Medication(s): SQH Elevated INR, down trending - Monitor Infectious Disease Post-Operative Leukocytosis - WBC up 22.9 today - Likely reactive in post-operative setting - Afebrile - UA 11/14: negative - Monitor and trend Post-Op Antimicrobial Therapy - Completed Cefazolin and vancomycin Complexity Hypocalcemia - Continue to monitor and replete. Prophylaxis Bundle: HOB: 30 degrees Stress ulcer ppx: [x] Yes [] Therapeutic [] Home regimen [] No, not indicated Chemical DVT ppx: [x] Yes [] No, SCDs ordered Therapy Services: OCCUPATIONAL THERAPY PROFESSOR: [x] Swallow [] Cognitive Eval [] Speaking Valve [] N/A Early Mobility: PT/OT consulted: [x]Yes [] No, d/t clinical status [] No, pt is independent Current Mobility Status: PT/OT, OOB OBJECTIVE VITALS: Blood pressure 112/58, pulse 73, temperature 98.2 F (36.8 C), temperature source Oral, resp. rate 14, height 1.829 m (6'), weight 93.4 kg (206 lb), SpO2 91%. PHYSICAL EXAM: GENERAL: Alert, oriented x 4, resting in bed, no acute distress HEENT: Head normocephalic, atraumatic HEART: RRR, +S1+S2, No murmurs LUNG: Regular, unlabored, CTAB ABD: Soft, Non-Distended, Non-Tender EXT: Warm, no cyanosis, No peripheral edema in bilateral lower extremities. PULSE: Palpable Bilateral DP Pulses MUSC: Moves all 4 Extremities NEURO: Aox4, following commands, no focal deficits appreciated, patient report OD visual changes PSYCH: Appropriate for the clinical situation SURGICAL INCISIONS Sternal Incision: Prevena in place No groin incisions CT sites CDI, DIAMOND Pasha Malhotra PA-C Cardiovascular ICU/ Cardiac Surgery 11/18/23 2:48 PM [id number] Care Management Discharge Note Selected Continued Care - Admitted Since 11/13/2023 Durable Medical Equipment Coordination complete. Service Provider Selected Services Address Phone Fax Patient Preferred [employer] [facility] Durable Medical Equipment [facility] [employer] [place] [phone] -- Unable to establish care with a home health care agency-there was NO accepting home care agencies. Case Management: 1. Patient medically stable for DC to home with family. 2. AVS completed and recommendations for requested follow-up in place for patient. 3. Primary nurse is aware of POC to DC . 4. Flash Welding Machine Operator informed patient/family they will need to make the necessary appointments that are placed on the AVS by the primary team. 5. No further needs identified. Patient medically stable for discharge per physician/medical team. 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 Chantal EPPS RN Clinical Flash Welding Machine Operator Please note that I am a float casework specialist and may not cover the same service every day. Please call the main Case Management office at [phone] for up-to-date coverage. Verified patients identity using date of . Appropriate PPE utilized. Notified by the bedside nurse patient would need the rollator that was ordered yesterday, sons were unable to locate one. DME referral for the rollator was initiated thru [employer] to [facility] so it can be delivered to the bedside. Sons are in route to transport home. \ [facility] referral reviewed and there is no accepting agencies. [address] [email or web address] accepted, supply company reserved. Rep notified to call sons for payment and then deliver, sons in route to transport. [facility] [address] [place] [address] Chantal EPPS RN Clinical Flash Welding Machine Operator Please note that I am a float casework specialist and may not cover the same service every day. Please call the main Case Management office at [phone] for up-to-date coverage. Verified patients identity using date of . Appropriate PPE utilized. Patient seen. Patient status post valve sparing root replacement. Patient overall doing well. Patient will discharge home today. Notified by the medical team patient may be discharging later today and was in need of a rollator for discharge home. TW met with patient at bedside to explain the difference between basic and deluxe models and the meyers difference. Patient verbalized wanting the deluxe model. He stated his son had his CC, he did say it would be ok to reach out to his son via phone. [email or web address] was the only accepting agency available. [email or web address] reserved. [facility] [address] [id number] TW was informed by the [email or web address] rep when he phoned the son he was informed the family had already ordered one online. Referral canceled Chantal EPPS RN Clinical Flash Welding Machine Operator Please note that I am a float casework specialist and may not cover the same service every day. Please call the main Case Management office at [phone] for up-to-date coverage. Verified patients identity using date of . Appropriate PPE utilized. Acute Occupational Therapy Treatment Prior to Admission AM-PAC Score: PRIOR LEVEL AM-PAC Activity Raw Score: 24 PRIOR LEVEL AM-PAC Mobility Raw Score: 24 Current AM-PAC score(s): CURRENT AM-PAC Activity Raw Score: 19 Based on the above AM-PAC score(s), and OT clinical judgment, discharge destination recommendation is: Home Incision care completed 11/16 Barriers to discharge home: Patient needs assistance with ADLs, Patient needs assistance with functional mobility Mobility equipment available at home: ADL equipment available at home: grab bars Equipment recommendations for discharge: to be determined Current therapy frequency recommendation(s) in acute: 3 times a week Precautions and Weightbearing Status: OT Existing Precautions/Restrictions: standard sternal Telemetry Patient Safety Communication Prior to Visit: Nursing Subjective: Pt alert and agreeable to therapy. Pt states I might leave today. It came as a surprise to me. Pain: General Pain Documentation (Adult, OB, Peds) Presence of Pain: denies pain/discomfort Presence of Pain Score (Auto-calculated): 0 Objective/Observation: Vitals/Vitals Responses to Treatment: pt observed to be stable throughout session. O2 Device: room air Cognition Overall Cognitive Status: Within Functional Limits Arousal/Alertness: Appropriate responses to stimuli Orientation Level: Oriented X4 Following Commands: Follows all commands and directions without difficulty Safety Judgment: Good awareness of safety precautions Awareness of Errors: Good awareness of errors made ADL Assessment/Intervention: ADLs: Eating Assistance: Grooming Assistance: Supervision Grooming Location: standing at sink Grooming Skilled Rationale (Verbal/Tactile/Visual/Demonstratio n): Facilitate positioning Grooming Intervention/Details: Pt completed hand hygiene and shaved face while standing at sink with cues for breathing strateigies Bathing Assistance: UE Dressing Assistance: LE Dressing Assistance: Toilet Assistance: Supervision Toileting Location: toilet Toilet Skilled Rationale (Verbal/Tactile/Visual/Demonstratio n): Cues for increased safety Toileting Intervention/Details: Pt completed nena hygiene while standing in front of toilet Extremity Assessments: See OT Evaluation flowsheet for Extremity Measurement updates. Balance: Sitting Balance Static Sitting-Level of Assistance: Independent Dynamic Sitting-Level of Assistance: Independent Sitting Balance Skilled Intervention/Details: Pt sat EOB in preparation for functional transfer Standing Balance Static Standing-Level of Assistance: Supervision Dynamic Standing-Level of Assistance: Supervision Skilled Rationale: Verbal cues Standing Balance Skilled Intervention/Details: Pt stood at sink ~10 minutes while completing grooming tasks to incorporate functional reach outside base of support Skin and Edema: Mobility Assessment/Intervention: Supine to Sit Mobility Bremer Level: Supine->Sit: contact guard assist Bed Features/Set-up: Supine->Sit: Head of bed elevated Skilled Rationale: Verbal cues, Sequencing Skilled Intervention/Details: Supine->Sit: Towards L side with cues for sequencing Sit to Supine Mobility Bremer Level: Sit->Supine: contact guard assist Bed Features/Set-up: Sit->Supine: Flat Skilled Rationale: Sequencing, Verbal cues, Positioning Skilled Intervention/Details: Sit->Supine: Cues for use of log roll technique to increase independence Transfer Assessment/Intervention: Sit to Stand Transfer Bremer Level: Sit->Stand: stand-by assist Skilled Rationale: Verbal cues Skilled Intervention/Details: Sit->Stand: Pt stood from EOB x2 Stand to Sit Transfer Bremer Level: Stand->Sit: stand-by assist Skilled Rationale: Verbal cues Skilled Intervention/Details: Stand->Sit: Pt sat on EOB x1 Toilet Transfer Bremer Level: Toilet: stand-by assist Skilled Rationale: Positioning Skilled Intervention/Details: Toilet: Pt completed ambulatory transfer on and off toilet Functional Mobility: Functional Mobility Bremer Level: Functional Mobility/Gait: supervision Functional Mobility Distance: Distance needed to access restroom Functional Mobility Skilled Rationale: Cues for increased safety, Energy conservation Skilled Intervention/Details - Functional Mobility/Gait: No LOB noted Outcome Score(s): CURRENT [facility] Daily Activity Inpatient Short Form Putting on/Taking Off Lower Body Clothin - A Little Assistance Bathin - A Little Assistance Toiletin - A Little Assistance Putting on/Taking Off Upper Body Clothin - A Little Assistance Groomin - A Little Assistance Eatin - No Assistance CURRENT [facility] Activity Raw Score: 19 CURRENT -[facility] Activity Functional Limitation/Modifier: 42.80% Currently Impaired in Daily Activity - CK Interventions: Pt educated on applying CHG soap or antibacterial unscented soap over mid sternal incision using hand to avoid abrasive scrubbing. Pt instructed to pat dry incision site. Pt instructed that it is ok to have water directly run over incision site during showering. Instructed pt to avoid using lotions, oils, or colognes/perfume. Pt instructed to avoid pulling on any grab bars in bathroom to maintain sternal precautions. Handout provided to assist with carryover of instructions upon discharge. Pt verbalized understanding. Assessment & Plan: Pt is showing good progress as demonstrated by increased balance. Improvements have allowed for progress in OT goals such as bathing and toileting. Current impairments and limitations include endurance. Pt shows continued need of OT services in acute setting to further progress toward best discharge disposition. Patient Instruction/Education this session: Learners: Patient Education provided: Plan of care Patient Instruction/Education comments: incision care Plan for next session: standing ADLs Acute OT Goals Plan of Care by Malorie Alvarado OT at 11/17/2023 1:05 PM Version 1 of 1 Problem: OT - ADLs Goal: Toileting - Patient will complete toileting task with modified independence and adaptive equipment as needed for improved ability to safely complete self-care activities. Outcome: Progressing Goal: Bathing - Patient will perform full body bathing routine with modified independence for improved ability to complete self-care activities Outcome: Progressing Problem: OT - Transfers Goal: Transfers Toilet/ Bedside Commode - Patient will transfer to/from toilet/bedside commode with modified independence for improved ability to safely complete ADLs. Outcome: Progressing Problem: OT - Balance Goal: Balance - Standing - Patient will perform 5 minutes of functional task in standing with modified independence and good balance to promote safety and improved balance required for self-care activities. Outcome: Progressing Problem: OT - Other Goal: Precaution Adherence - Patient will demonstrate 100% adherence to precautions during all ADLs and functional transfers to promote safety during daily routine. Outcome: Ongoing OT treatment consisted of the following to work and progress towards the above goal(s): OT Evaluation and Treatment Time Self Care/Home Management (ADLs) Time Entry: 23 Therapeutic Activity Time Entry: 22 Treating Therapist: Malorie Alvarado OT Additional Details: PPE used during patient interaction: facemask, gloves Patient location at end of session: bed with head of bed elevated Alarms on at end of session: RN aware Needs in reach. Time In: 1305 Time Out: 1350 Total Visit Time: 45 minutes Total Treatment Time (skilled, billable minutes): 45 minutes Upon discontinuation of Acute Care Occupational Therapy Services or patient discharge from the hospital this note represents the current Occupational Therapy Discharge Summary. CVICU DAILY PROGRESS NOTE. HISTORY OF PRESENT ILLNESS: Mr. Bowers is a 63 y.o. male who has past medical history of HTN, HLD, CAD, and knee/shoulder ortho surgery. He recently presented to OSH with episodes of stable angina and was found to have aortic root dilation (57mm) and severe trileaflet AV AI. He was not deemed a candidate for CABG as workup revealed no vessel stenosis >60% and minimal iFR change. He presented on 11/12 for repair ascending aorta aneurysm with valve sparing root repair or suspension with Dr. Chilango Ríos. DATE OF SURGERY: 11/13/23 PROCEDURE: 1. Valve-sparing aortic root replacement (remodeling technique, 34 mm Gelweave Valsalva graft). 2. Replacement, ascending aorta. 3. Replacement, aortic arch, as a ebony-arch procedure with control of head and neck vessels (26 mm Ante-Valdemar graft). 4. Aortic valve repair. 5. Hypothermic circulatory arrest with antegrade cerebral perfusion via the innominate artery. SURGEON: Dr. Chilango Ríos POD: 4 Code Status: Full 24-hour interval history: On RA, NAOE TTE completed yesterday Plan for 11/17/2023: - Remove last mediastinal CT - Pull pacing wires today - Continue Metop 12.5 mg Q12h (holding parameters in place) - trial 20mg IV lasix x1 - Continue TRAE hose - Encourage pulmonary hygiene, IS use - PT/OT, OOB, ambulate - PA-lateral CXR, OT consult to shower Discharge Planning/CARLOS/Discharge Readiness: Anticipated, Home. Patient requested Home Health. Order placed. Follow up: CSY + CTA chest non-coronary: 12/16 Follow up imaging TTE prior to discharge - completed 11/15 Dr. Chilango Ríos recommends home health services upon discharge including PT, OT, and long term as indicated SURGICAL PLAN Pre-op AARON: LVEF 60%, nl LV diastolic function, Atria: normal right and left Mitral valve: mild regurgitation, normal leaflets Aortic valve: Normal AV annulus (24mm), Normal leaflets, moderate AV regurgitation, no stenosis Tricuspid Valve: normal leaflets, no stenosis, trace regurgitation Pulmonic Valve: Normal annulus, leaflets, trace regurg, no stenosis, normal pulmonary artery Aorta: Asc Ao Diameter 56mm, Annulus 24mm, Ao Arch Diameter 29mm Pericardium: no effusion or abnormality Post-op AARON: No report Chest Tube Mgmt: #1: Mediastinal straight chest tubes - remove today Pacing Wires: Ventricular back up rate 40 Plan: Remove on POD 4 Sutures/Torres Plan: Prevena Remove POD 7 PA/LAT Chest X-ray: To be ordered once all chest tubes are removed OT shower complete? No consult OT once all tubes and wires are out. SYSTEM BASED PLAN . Neurological: Acute Post-Operative Pain -Pain well controlled per pt report this AM -Scheduled gabapentin for 3 days and Tylenol 650 mg Q4 hrs -PRN Oxy and tylenol. Agitation/Delirium- Overall CAM-ICU: Negative Delirium precautions Day/night sleep cycle, sleep hygiene Cardiovascular: Aortic root dilation (57mm) and severe trileaflet AV AI s/p Repair Ascending Aortic Aneurysm w/ Valve-Sparing Root Repair Or Suspension (Midline) - ASA, BB, statin Hx/o CAD w/NSTEMI -[facility] 10/22 w/ 60% stenosis in proximal LAD artery with an iFR of 0.98, non-significant physiologic stenosis. 40% stenosis in the first diagonal branch (wire placed in the larger inferior branch after the bifurcation) with an iFR of 0.99 representing a non-significant physiologic stenosis. There is a 20% stenosis in the proximal left circumflex artery. - ASA 325 mg daily, statin, BB (holding parameters in place) Hypertension - Home medications: metoprolol xL 25mg daily- held - Metoprolol 12.5 mg Q12h (holding parameters in place) Orthostatic hypotension (11/14), resolved - TRAE henao Hyperlipidemia - Home Rosuvastatin 20mg daily Pulmonary: Acute post-Operative Respiratory Insufficiency (resolved) - Extubated 11/12, on RA - Incentive Spirometry while awake - Plan: Pulmonary toilet, IS use Renal: At Risk for SHERLYN d/t Ascending Aortic Aneurysm repair w/Bypass - Baseline Creatinine: 0.90 - Baseline GFR: > 90 mg/mmol - Urine output: good - Monitor chemistries - Avoid nephrotoxic agents Postoperative Hypervolemia: + 3kg, trae henao inplace Trial 1x dose 20mg IV lasix Gastrointestinal: Acute Post Operative Constipation, resolved - Last Bowel Movement: 11/17/23 - Bowel regimen in place with scheduled miralax and senna. - PRN dulcolax suppository Diet: Current Diet Orders Procedures DIET HEART HEALTHY - 4 GM SODIUM Carb Controlled; Oral Supplement Ensure: chocolate flavor or patient's preference (does not like vanilla) Standing Status: Standing Number of Occurrences: 1 Order Specific Question: Additional Modifier: Answer: Carb Controlled Order Specific Question: Additional Modifier: Answer: Oral Supplement : Body mass index is 28.16 kg/m . Post-Operative Nausea/Vomiting (resolved) - PRN Zofran and compazine Integumentary/Musculoskeletal Active Incisions Wounds Wound Surgical 11/13/23 0808 Sternum (4) Endocrinology Post-Operative Stress Induced Hyperglycemia (resolved) - HgbA1c= 10/21/2023: Hemoglobin A1C HPLC 5.3 Euglycemic Hematology Post-operative Acute Blood Loss Anemia - No concern for ongoing blood loss - Stable H/H - CTM daily H/H, no indication for transfusion at this time Post-Operative Thrombocytopenia, resolved 11/17/2023: Platelet Count 148 - Secondary to CPB - Bleeding precautions, monitor Anticoagulation Status/Plan Indication: DVT ppx - Medication(s): SQH Elevated INR, down trending - Monitor Infectious Disease Post-Operative Leukocytosis - WBC up 22.9 today - Likely reactive in post-operative setting - Afebrile - UA 11/14: negative - Monitor and trend Post-Op Antimicrobial Therapy - Completed Cefazolin and vancomycin Complexity Hypocalcemia - Continue to monitor and replete. Thrombocytopenia - Continue to monitor. Prophylaxis Bundle: HOB: 30 degrees Stress ulcer ppx: [x] Yes [] Therapeutic [] Home regimen [] No, not indicated Chemical DVT ppx: [x] Yes [] No, SCDs ordered Therapy Services: OCCUPATIONAL THERAPY PROFESSOR: [x] Swallow [] Cognitive Eval [] Speaking Valve [] N/A Early Mobility: PT/OT consulted: [x]Yes [] No, d/t clinical status [] No, pt is independent Current Mobility Status: PT/OT, OOB OBJECTIVE VITALS: Blood pressure 98/56, pulse 119, temperature 98.1 F (36.7 C), temperature source Oral, resp. rate (!) 25, height 1.829 m (6'), weight 94.2 kg (207 lb 9.6 oz), SpO2 92%. PHYSICAL EXAM: GENERAL: Alert, oriented x 4, resting in bed, no acute distress HEENT: Head normocephalic, atraumatic HEART: RRR, +S1+S2, No murmurs LUNG: Regular, unlabored, CTAB ABD: Soft, Non-Distended, Non-Tender EXT: Warm, no cyanosis, No peripheral edema in bilateral lower extremities. PULSE: Palpable Bilateral DP Pulses MUSC: Moves all 4 Extremities NEURO: Aox4, following commands, no focal deficits appreciated PSYCH: Appropriate for the clinical situation SURGICAL INCISIONS Sternal Incision: Prevena in place No groin incisions CT sites CDI, DIAMOND Pasha Malhotra PA-C Cardiovascular ICU/ Cardiac Surgery 11/17/23 12:32 PM [id number] In follow-up to weekend handoff the Aidin referral for HHC was reviewed. The referral had without an accepting agency. The timer was extended, this CM will continue to follow. Chantal EPPS RN Clinical Flash Welding Machine Operator Please note that I am a float casework specialist and may not cover the same service every day. Please call the main Case Management office at [phone] for up-to-date coverage. Verified patients identity using date of . Appropriate PPE utilized. Patient seen. Patient status post aortic repair. Patient will overall doing well. Will get last chest tube and wires out today. Will potentially go home today versus tomorrow. Cardiac Surgery ANNABELLE Chest Tube Removal Procedure: Chest tube Removal Chest Tube Removed: Mediastinal # 2 Performed by: ANNA Oneal Indications: Chest Tube: Overall drainage of the tube is less than 200 ml over 24 hours or decreasing volumes with less than 75 ml the last shift Yovani Drain: Overall drainage of the tube is less than 50ml over 24 hours Procedure details: Procedure was reviewed with the patient and questions were answered. Chest tubes were confirmed on water seal. Drainage was noted to be serous. The patient was placed in a supine position. Bandages were removed. The chest tube was clamped. The area was prepared in aseptic technique fashion. Stabilizing sutures were removed and chest tube was pulled in a estevez, quick motion. Occlusive gauze dressing and Tegaderm was applied over the site. The patient tolerated procedure well. No complications were identified. Imaging to follow in the morning. ANNA Oneal Division of Cardiac Surgery Phone # [phone] CVICU DAILY PROGRESS NOTE. HISTORY OF PRESENT ILLNESS: Mr. Bowers is a 63 y.o. male who has past medical history of HTN, HLD, CAD, and knee/shoulder ortho surgery. He recently presented to OSH with episodes of stable angina and was found to have aortic root dilation (57mm) and severe trileaflet AV AI. He was not deemed a candidate for CABG as workup revealed no vessel stenosis >60% and minimal iFR change. He presented on 11/12 for repair ascending aorta aneurysm with valve sparing root repair or suspension with Dr. Chilango Ríos. DATE OF SURGERY: 11/13/23 PROCEDURE: 1. Valve-sparing aortic root replacement (remodeling technique, 34 mm Gelweave Valsalva graft). 2. Replacement, ascending aorta. 3. Replacement, aortic arch, as a ebony-arch procedure with control of head and neck vessels (26 mm Ante-Valdemar graft). 4. Aortic valve repair. 5. Hypothermic circulatory arrest with antegrade cerebral perfusion via the innominate artery. SURGEON: Dr. Chilango Ríos POD: 3 Code Status: Full 24-hour interval history: UA negative. No issues overnight. Patient still reports nausea and feeling tired. On room air. Had a BM yesterday Plan for 11/16/2023: - Remove Mediastinal # 2 today - Keep other Med CT to water seal - Keep pacing wires today - Add compazine to see if better nausea control - Mag oxide 400 mg BID - Echocardiogram prior to discharge (ordered 11/14): completing today - Continue amiodarone - Continue Metop 12.5 mg Q12h (holding parameters in place) - Defer diuresis again today given soft BP - Continue TRAE hose - Encourage pulmonary hygiene, IS use - PT/OT, OOB, ambulate Discharge Planning/CARLOS/Discharge Readiness: Anticipated, Home. Patient requested Home Health. Order placed. Follow up: CSY appointment emailed 11/14 CTA chest non-coronary: ordered 11/14 CX PA/LAT: ordered 11/14 Dr. Chilango Ríos recommends home health services upon discharge including PT, OT, and long term as indicated SURGICAL PLAN Pre-op AARON: LVEF 60%, nl LV diastolic function, Atria: normal right and left Mitral valve: mild regurgitation, normal leaflets Aortic valve: Normal AV annulus (24mm), Normal leaflets, moderate AV regurgitation, no stenosis Tricuspid Valve: normal leaflets, no stenosis, trace regurgitation Pulmonic Valve: Normal annulus, leaflets, trace regurg, no stenosis, normal pulmonary artery Aorta: Asc Ao Diameter 56mm, Annulus 24mm, Ao Arch Diameter 29mm Pericardium: no effusion or abnormality Post-op AARON: No report Chest Tube Mgmt: #1: Mediastinal straight chest tubes - keep it to water seal #2: Mediastinal straight chest tubes - removed 11/15 Pacing Wires: Ventricular back up rate 40 Plan: Remove on POD 4 Sutures/Inez Plan: Prevena Remove POD 7 PA/LAT Chest X-ray: To be ordered once all chest tubes are removed OT shower complete? No consult OT once all tubes and wires are out. SYSTEM BASED PLAN . Neurological: Acute Post-Operative Pain -Pain well controlled per pt report this AM -Scheduled gabapentin for 3 days and Tylenol 650 mg Q4 hrs -PRN Oxy and tylenol. Agitation/Delirium- Overall CAM-ICU: Negative Delirium precautions Day/night sleep cycle, sleep hygiene Cardiovascular: Aortic root dilation (57mm) and severe trileaflet AV AI s/p Repair Ascending Aortic Aneurysm w/ Valve-Sparing Root Repair Or Suspension (Midline) - Normal Pathway - Remove Med # 2 - Keep Med # 1 - Keep V-wires; back up rate 40 - ASA, amio prophylaxis - Goal SBP<130, MAP>65 Hx/o CAD w/NSTEMI -[facility] 10/22 w/ 60% stenosis in proximal LAD artery with an iFR of 0.98, non-significant physiologic stenosis. 40% stenosis in the first diagonal branch (wire placed in the larger inferior branch after the bifurcation) with an iFR of 0.99 representing a non-significant physiologic stenosis. There is a 20% stenosis in the proximal left circumflex artery. - Asymptomatic currently - ASA 325 mg daily, statin, BB (holding parameters in place) Hypertension - SBP goal <130, MAP >65 mmHg - Home medications: metoprolol xL 25mg daily- held - Currently soft BP - Metoprolol 12.5 mg Q12h (holding parameters in place) Orthostatic hypotension, improved - One episode 11/14 - TRAE henao Hyperlipidemia - Home Rosuvastatin 20mg daily Pulmonary: Acute post-Operative Respiratory Insufficiency - Extubated 11/12 - Wean O2 for Sat > 92% with oxygen as needed - On room air - Incentive Spirometry while awake - Plan: Pulmonary toilet, IS use Renal: At Risk for SHERLYN d/t Ascending Aortic Aneurysm repair w/Bypass - Baseline Creatinine: 0.90 - Baseline GFR: > 90 mg/mmol - Urine output: good - Monitor chemistries - Avoid nephrotoxic agents Electrolyte abnormalities: Hypocalcemia - Electrolyte replacement per protocol Electrolyte replacement per protocol, Maintain K>4.5 Hypomagnesemia: Electrolyte replacement per protocol, Maintain Mg>3.0. Mag oxide 400 mg BID Gastrointestinal: Acute Post Operative Constipation, resolved - Last Bowel Movement: 11/16/23 - Bowel regimen in place with scheduled miralax and senna. - PRN dulcolax suppository Diet: Current Diet Orders Procedures DIET HEART HEALTHY - 4 GM SODIUM Carb Controlled; Oral Supplement Ensure: chocolate flavor or patient's preference (does not like vanilla) Standing Status: Standing Number of Occurrences: 1 Order Specific Question: Additional Modifier: Answer: Carb Controlled Order Specific Question: Additional Modifier: Answer: Oral Supplement : Body mass index is 27.84 kg/m . Post-Operative Nausea/Vomiting - Received Haldol x1 overnight - PRN Zofran and compazine Integumentary/Musculoskeletal Active Incisions Wounds Wound Surgical 11/13/23 0808 Sternum (3) Endocrinology Post-Operative Stress Induced Hyperglycemia - HgbA1c= 10/21/2023: Hemoglobin A1C HPLC 5.3 - Off Insulin gtt - SSI Hematology Post-operative Acute Blood Loss Anemia - No concern for ongoing blood loss - Stable H/H - CTM daily H/H, no indication for transfusion at this time Post-Operative Thrombocytopenia, resolved 11/16/2023: Platelet Count 158 - Secondary to CPB - Bleeding precautions, monitor Anticoagulation Status/Plan Indication: DVT ppx - Medication(s): SQH Elevated INR - 3/14 and 3.15: 1.7 - LFTs ok - Monitor Infectious Disease Post-Operative Leukocytosis - WBC up 22.9 today - Likely reactive in post-operative setting - Afebrile - UA 11/14: negative - Monitor and trend Post-Op Antimicrobial Therapy - Completed Cefazolin and vancomycin Complexity Hypocalcemia - Continue to monitor and replete. Prophylaxis Bundle: HOB: 30 degrees Stress ulcer ppx: [x] Yes [] Therapeutic [] Home regimen [] No, not indicated Chemical DVT ppx: [x] Yes [] No, SCDs ordered Therapy Services: OCCUPATIONAL THERAPY PROFESSOR: [x] Swallow [] Cognitive Eval [] Speaking Valve [] N/A Early Mobility: PT/OT consulted: [x]Yes [] No, d/t clinical status [] No, pt is independent Current Mobility Status: PT/OT, OOB OBJECTIVE VITALS: Blood pressure 104/58, pulse 67, temperature 98.8 F (37.1 C), temperature source Oral, resp. rate 17, height 1.829 m (6'), weight 93.1 kg (205 lb 4 oz), SpO2 93%. PHYSICAL EXAM: GENERAL: Alert, oriented x 4, resting in emelia, no acute distress HEENT: Head normocephalic, atraumatic, PEERLA, EOMI HEART: RRR, +S1+S2, No murmurs LUNG: Regular, unlabored, CTAB ABD: Soft, Non-Distended, Non-Tender EXT: Warm, no cyanosis, No peripheral edema in bilateral lower extremities. PULSE: Palpable Bilateral DP Pulses MUSC: Moves all 4 Extremities NEURO: Aox4, following commands, QUILES, no focal deficits appreciated PSYCH: Appropriate for the clinical situation SURGICAL INCISIONS Sternal Incision: Prevena in place ANNA Oneal Cardiovascular ICU/ Cardiac Surgery 11/16/23 11:06 AM [id number] Inpatient Cardiopulmonary Rehab Follow Up Visit AND Activity Session Completed. RN approved, as tolerated, and patient agreeable to visit. Patient reports feeling OK without complaints. Patient demonstrated IS x 3 up to 1000 mL with proper technique. Activity Session Vitals: 11/16/23 1040 11/16/23 1059 Vital Signs Pulse (Heart Rate) 67 (rest) 66 (post-amb) Heart Rate Source Monitor Monitor BP 104/58 111/64 MAP (mmHg) 74 mmHg 82 mmHg BP Method Automatic Automatic BP Location Left arm Left arm BP Position Lying Lying O2 Sat (%) 93 % 96 % O2 Device room air room air Activity/Level of Assistance Amb in brian/SBA, 4-WW, chair follow Ambulation Distance (feet) 250 Symptoms Noted During/After Activity Fatigue Positioning Supine HoB, call light within reach 2 Chest tube(s), pacer wires, prevena, telemetry all intact upon leaving the room Activity session details: Patient up with min A, ambulating 250 ft SBA without requiring any breaks. Only symptom reported with activity was fatigue. Assisted patient back to bed for chest tube removal following activity. RN notified/aware. Encouraged continued ambulation and discussed appropriate activity progression. Discharge education reviewed with the patient. Patient s questions/concerns addressed. 2 bottles of hibaclens (CHG) were provided to the patient and family for incision care at home. Patient and son attended [facility] Discharge Class today, instructed by the Inpatient Cardiopulmonary & Vascular Rehab team. Questions/concerns were addressed and topics below were discussed. 1. Activity Restrictions s/p sternotomy (standard) for 6 weeks 2. Rest Time 3. Activity Guidelines/Recommendations 4. Nutrition 5. Medications 6. Coughing and Deep Breathing 7. Incision Care 8. Post Surgery Blues 9. When to Call the Doctor Bety Wayne, [phone]) IP Cardiopulmonary & Vascular Rehab Department of Pharmacy Stress Ulcer Prophylaxis Stewardship Note Patient: Afsaneh Bowers Room/Bed: 4028/A Discontinued Pantoprazole for inpatient stress ulcer prophylaxis as risk factors are no longer present per [facility] algorithm. Click here to see stress ulcer prophylaxis algorithm Please feel free to contact me with any further questions. Name: Ramírez Stokes RPH Phone:[phone] Date/Time: 11/15/2023 1:15 PM Inpatient Cardiopulmonary Rehab Follow Up Visit AND Activity Session Completed. RN approved, as tolerated, and patient agreeable to visit. Patient reports feeling OK without complaints. Activity Session Vitals: 11/15/23 1147 11/15/23 1204 Vital Signs Pulse (Heart Rate) 71 (rest) 88 (post-amb) Heart Rate Source Monitor Monitor BP 101/65 135/78 MAP (mmHg) 78 mmHg 98 mmHg BP Method Automatic Automatic BP Location Right arm Right arm BP Position Lying Sitting O2 Sat (%) 90 % 94 % O2 Device room air room air Activity/Level of Assistance Amb in brian/Ax1, 4-WW, chair Ambulation Distance (feet) 180 Symptoms Noted During/After Activity Dizziness, Fatigue Positioning Seated in chair, call light within reach 2 Chest tube(s), pacer wires, prevena, telemetry all intact upon leaving the room Activity session details: Patient met in bed, requiring Ax1 to transfer from supine to EOB. Patient required min Ax1 to stand from EOB. Patient completed ADLs with OT prior to ambulating in hallways. Patient ambulated 180 ft without requiring any breaks. Patient noted to have blurry vision in R eye- contributing to some dizziness with activity. Patient also endorsed fatigue with activity. Patient left seated in chair, eating lunch when I left room. RN notified/aware. Encouraged continued ambulation and discussed appropriate activity progression. Discharge education reviewed with the patient. Patient s questions/concerns addressed. Betyjeffrey Wayne, MS [phone]) IP Cardiopulmonary & Vascular Rehab Acute Occupational Therapy Treatment Prior to Admission AM-PAC Score: PRIOR LEVEL AM-PAC Activity Raw Score: 24 PRIOR LEVEL AM-PAC Mobility Raw Score: 24 Current AM-PAC score(s): CURRENT AM-PAC Activity Raw Score: 19 Based on the above AM-PAC score(s), and OT clinical judgment, discharge destination recommendation is: Home Barriers to discharge home: Patient needs assistance with ADLs, Patient needs assistance with functional mobility Mobility equipment available at home: ADL equipment available at home: grab bars Equipment recommendations for discharge: to be determined Current therapy frequency recommendation(s) in acute: 3 times a week Activity Recommendations for outside of rehab session: OOB for all meals and 3 walks per day Precautions and Weightbearing Status: OT Existing Precautions/Restrictions: standard sternal Patient Safety Communication Prior to Visit: Nursing Subjective: I'd like to brush my teeth if you don't mind. Pain: General Pain Documentation (Adult, OB, Peds) Presence of Pain: denies pain/discomfort Presence of Pain Score (Auto-calculated): 0 Objective/Observation: Vitals/Vitals Responses to Treatment: 11/15/23 1144 Vitals ICU/PCU Pulse (Heart Rate) 71 BP 106/59 MAP (mmHg) 77 mmHg Oxygen Therapy O2 Sat (%) 91 % O2 Device room air O2 Device: room air Cognition Overall Cognitive Status: Within Functional Limits ADL Assessment/Intervention: ADLs: Grooming Assistance: Set up supervision Grooming Location: standing at sink Grooming Intervention/Details: Pt stood sink side x3:34 while washing his face/brushing his teeth with distant supervision for safety. Extremity Assessments: See OT Evaluation flowsheet for Extremity Measurement updates. Balance: Sitting Balance Static Sitting-Level of Assistance: Independent Dynamic Sitting-Level of Assistance: Supervision Standing Balance Static Standing-Level of Assistance: Supervision Dynamic Standing-Level of Assistance: Stand-by assist Standing-Balance Support: 4 wheeled walker Mobility Assessment/Intervention: Supine to Sit Mobility Bremer Level: Supine->Sit: minimum assist (75% patient effort) Bed Features/Set-up: Supine->Sit: Head of bed elevated Skilled Rationale: Positioning, Hand placement, Verbal cues, Sequencing, Maintain precautions Skilled Intervention/Details: Supine->Sit: Pt able to progress LE off bed and required light hands on assistance to right trunk to midline due to sternal precautions Transfer Assessment/Intervention: Sit to Stand Transfer Bremer Level: Sit->Stand: stand-by assist Assistive Device: Sit->Stand: 4 wheeled walker Skilled Rationale: Hand placement, Verbal cues, Maintain precautions Skilled Intervention/Details: Sit->Stand: x2 reps; cues to rock forward and count to 3 to gain momentum in preparation for ascent. Stand to Sit Transfer Bremer Level: Stand->Sit: stand-by assist Assistive Device: Stand->Sit: 4 wheeled walker, armed chair Skilled Rationale: Hand placement, Verbal cues, Initiation and execution of task, Controlled descent for sitting, Maintain precautions Skilled Intervention/Details: Stand->Sit: Cues to cross UE over chest and utilize eccentric control to slowly descend into chair. Functional Mobility: Functional Mobility Bremer Level: Functional Mobility/Gait: stand-by assist Physical Assist: Functional Mobility/Gait: chair follow Assistive Device: Functional Mobility/Gait: 4 wheeled walker Functional Mobility Distance: Distance needed for common household mobility Functional Mobility Deficits: Activity tolerance, Shortness of breath Functional Mobility Skilled Rationale: Breathing strategies, Proper pacing Skilled Intervention/Details - Functional Mobility/Gait: Pt completed functional mobility in room/on unit (~250ft) to simulate home environment. Pt required SBA for safety and cues for safe 4WW management. Functional mobility completed to increase endurance and ease activity demands of OOB and standing I/ADL tasks. 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 Pt limited by activity tolerance deficits in ability to perform self-care tasks with independence. Pt will continue to benefit from skilled OT during hospital admission for ADL retraining and fall prevention to increase independence with self care tasks and reduce burden of care at discharge. Patient Instruction/Education this session: Learners: Patient Education provided: Precautions/weight bearing status Plan for next session: Shower (when all lines removed) Acute OT Goals Plan of Care by Jeanette Romo OT at 11/15/2023 12:39 PM Version 1 of 1 Problem: OT - Balance Goal: Balance - Standing - Patient will perform 5 minutes of functional task in standing with modified independence and good balance to promote safety and improved balance required for self-care activities. Outcome: Progressing Problem: OT - Other Goal: Precaution Adherence - Patient will demonstrate 100% adherence to precautions during all ADLs and functional transfers to promote safety during daily routine. Outcome: Progressing OT treatment consisted of the following to work and progress towards the above goal(s): OT Evaluation and Treatment Time Self Care/Home Management (ADLs) Time Entry: 10 Therapeutic Activity Time Entry: 13 Treating Therapist: Jeanette Romo OT Additional Details: OT Co-Eval/Treatment Information Co-evaluation/co-treatment performed?: No simultaneous skilled care performed Non-billable assistance during session: Bety, cardiac rehab PPE used during patient interaction: facemask, gloves Patient location at end of session: chair Alarms on at end of session: RN aware Needs in reach. Time In: 1144 Time Out: 1207 Total Visit Time: 23 minutes Total Treatment Time (skilled, billable minutes): 23 minutes Upon discontinuation of Acute Care Occupational Therapy Services or patient discharge from the hospital this note represents the current Occupational Therapy Discharge Summary. Images from the original note were not included. Discharge Planning Patient Assessment Admission Assessment Patient Assessment Completed: Initial Anticipated discharge disposition: Home with Home Health Reason for Admission: AAA repair Is the patient able to participate in the assessment?: Yes Information source: Patient Demographics Verified and Updated: Yes Has the patient been admitted to any hospital in the last 30 days?: No Advanced Care Planning Has the patient completed Advance Directives?: Completed, Not Available in Medical Record Copy of Advance Directives was requested?: Yes Advance Directives Requested From: patient Legal Next of Kin Does the patient have a Guardian?: No Spouse: No Adult Child(jv), List All Adult Children: Yes Name and Contact information: Jose Bowers Reviewed and Updated in Demographics? : Yes Outpatient Providers Does patient have a primary care physician? : Yes When was the patient's last PCP visit?: > 30 days Does the patient follow any specialists?: Yes Reviewed and updated Care Team?: Yes Patient Care Team: Chilango Welsh MD as PCP - General (Family Medicine) Asaf Torres MD as PCP - Referring 1 (Orthopaedic Surgery) Ani (Chilango) MD Abdon (Cardiac Surgery) Martín Hogan PA-C (Physician Unclaimed Property Officer) Environment/Caregivers Is the patient from a facility or skilled nursing?: No Patient lives with: Alone Living Environment: House How many steps does the patient have to navigate to enter or inside the home? : 3 Does the patient have a first floor set-up with bed and bathroom?: Yes Patient Caregiving Responsibilities: Self Patient-identified caregiver/support network: Family Who does the patient identify as a teachable caregiver(s)?: Child(jv) - Independent Services Does the patient use a home health or hospice agency?: No Current with dialysis?: No Does the patient use any community programs or services?: No Does patient use DME? : none Does the patient use oxygen?: No Anticipated Changes Related to Illness/Injury? : No Initial ADLs Prior to Arrival What is the patient's baseline physical functioning prior to this acute illness?: independent What is the patient's baseline cognitive functioning prior to this acute illness?: independent Is the patient's baseline functioning changed by this acute illness? : No Concerns with patient being able to care for themselves at home? : No Are there therapy or specialists consults?: Yes Select consult type: PT, OT Does the patient's home require any home modifications for discharge? : No CM to recommend therapy or other consults? : No Medication Management Does the patient have prescription insurance coverage? : Yes Is the patient on Anticoagulation? 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 : No Employed?: Yes Coping/Stress Concerns about patient s coping and stress?: No Concerns about patient s caregiver s coping and stress?: No Values and Beliefs Cultural or gnosticist practices that may impact discharge planning and/or medical care?: Yes Explanation of practices or beliefs: adventist Initial Discharge Planning Anticipated discharge disposition: Home with Home Health Transportation Available for Discharge: Private Vehicle Patient Assessment Completed: Initial Expected Discharge Date: 11/18/2023 Discharge Planning Summary Pt admits for AAA repair. 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 Pt plans to dc to his son Napoleon's house. Pt would like home health. LNOK is pt's 2 sons Napoleon and Ritchie. Pt has HCPOA listing his sons as POA, but the document is not on file. I asked pt for a copy of the document. Case Management Plan Role of clinical casework specialist explained. 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 DC disposition to be determined by clinical course. Tayler Art, CORPORATE QUALITY ASSURANCE MANAGER, REFERRAL SPECIALIST, CCM Clinical Flash Welding Machine Operator [phone] CVICU DAILY PROGRESS NOTE. HISTORY OF PRESENT ILLNESS: Mr. Bowers is a 63 y.o. male who has past medical history of HTN, HLD, CAD, and knee/shoulder ortho surgery. He recently presented to OSH with episodes of stable angina and was found to have aortic root dilation (57mm) and severe trileaflet AV AI. He was not deemed a candidate for CABG as workup revealed no vessel stenosis >60% and minimal iFR change. He presented on 11/12 for repair ascending aorta aneurysm with valve sparing root repair or suspension with Dr. Chilango Ríos. DATE OF SURGERY: 11/13/23 PROCEDURE: 1. Valve-sparing aortic root replacement (remodeling technique, 34 mm Gelweave Valsalva graft). 2. Replacement, ascending aorta. 3. Replacement, aortic arch, as a ebony-arch procedure with control of head and neck vessels (26 mm Ante-Valdemar graft). 4. Aortic valve repair. 5. Hypothermic circulatory arrest with antegrade cerebral perfusion via the innominate artery. SURGEON: Dr. Chilango Ríos POD: 2 Code Status: Full 24-hour interval history: PCU overnight. Had bilateral shoulder pain and robaxin PRN added with good response. Patient reported nausea this morning and was medicated. Also reported feeling a little dizzy when going to the bathroom. BP soft but stable. Passing flatus. WBC up on morning labs. INR elevated (1.7), checked LFTs stable. Plan for 11/15/2023: - Split Meds CT. CT to water seal - Send UA - Echocardiogram prior to discharge (ordered 11/14) - Continue amiodarone - Start Metop 12.5 mg Q12h this evening (holding parameters in place) - Defer diuresis today given orthostatic hypotension this morning - TRAE hose - Wean off oxygen with goal SPO2 > 92% - PT/OT, OOB, ambulate Discharge Planning/CARLOS/Discharge Readiness: Anticipated, likely Home Follow up: CSY appointment emailed 11/14 CTA chest non-coronary: ordered 11/14 CX PA/LAT: ordered 11/14 Dr. Chilango Ríos recommends home health services upon discharge including PT, OT, and long term as indicated SURGICAL PLAN Pre-op AARON: LVEF 60%, nl LV diastolic function, Atria: normal right and left Mitral valve: mild regurgitation, normal leaflets Aortic valve: Normal AV annulus (24mm), Normal leaflets, moderate AV regurgitation, no stenosis Tricuspid Valve: normal leaflets, no stenosis, trace regurgitation Pulmonic Valve: Normal annulus, leaflets, trace regurg, no stenosis, normal pulmonary artery Aorta: Asc Ao Diameter 56mm, Annulus 24mm, Ao Arch Diameter 29mm Pericardium: no effusion or abnormality Post-op AARON: No report Chest Tube Mgmt: #1: Mediastinal straight chest tubes. #2: Mediastinal straight chest tubes. Plan for today: Continue to suction Pacing Wires: Ventricular back up rate 40 Plan: Remove on POD 4 Sutures/Torres Plan: Prevena Remove POD 7 PA/LAT Chest X-ray: To be ordered once all chest tubes are removed OT shower complete? No consult OT once all tubes and wires are out. SYSTEM BASED PLAN . Neurological: Acute Post-Operative Pain -Pain well controlled per pt report this AM -Scheduled gabapentin for 3 days and Tylenol 650 mg Q4 hrs -PRN Oxy and tylenol. Agitation/Delirium- Overall CAM-ICU: Negative Delirium precautions Day/night sleep cycle, sleep hygiene Cardiovascular: Aortic root dilation (57mm) and severe trileaflet AV AI s/p Repair Ascending Aortic Aneurysm w/ Valve-Sparing Root Repair Or Suspension (Midline) - Normal Pathway - Split CTSs - Keep V-wires; back up rate 40 - ASA, amio prophylaxis - Goal SBP<130, MAP>65 CAD w/NSTEMI -[facility] 10/22 w/ 60% stenosis in proximal LAD artery with an iFR of 0.98, non-significant physiologic stenosis. 40% stenosis in the first diagonal branch (wire placed in the larger inferior branch after the bifurcation) with an iFR of 0.99 representing a non-significant physiologic stenosis. There is a 20% stenosis in the proximal left circumflex artery. - Asymptomatic currently - ASA 325 mg daily, statin - Start BB this evening (holding parameters in place) Hypertension - SBP goal <130, MAP >65 mmHg - Home medications: metoprolol xL 25mg daily- held - Start BB this evening (holding parameters in place) Orthostatic hypotension - One episode 11/14 - TRAE henao Hyperlipidemia - Home Rosuvastatin 20mg daily Pulmonary: Acute post-Operative Respiratory Insufficiency - Extubated 11/12 - Wea O2 for Sat > 92% with oxygen as needed -Incentive Spirometry while awake -Plan: Pulmonary toilet Renal: At Risk for SHERLYN d/t Ascending Aortic Aneurysm repair w/Bypass -Baseline Creatinine: 0.90 -Baseline GFR: > 90 mg/mmol -Urine output: good -Monitor chemistries -Avoid nephrotoxic agents Electrolyte abnormalities: Hypocalcemia - Electrolyte replacement per protocol Electrolyte replacement per protocol, Maintain K>4.5 Hypomagnesemia: Electrolyte replacement per protocol, Maintain Mg>3.0 Gastrointestinal: Acute Post Operative Constipation -Last BM prior to admit -Bowel regimen in place with scheduled miralax and senna. -PRN dulcolax suppository Diet: Current Diet Orders Procedures DIET HEART HEALTHY - 4 GM SODIUM Carb Controlled; Oral Supplement Ensure: chocolate flavor or patient's preference (does not like vanilla) Standing Status: Standing Number of Occurrences: 1 Order Specific Question: Additional Modifier: Answer: Carb Controlled Order Specific Question: Additional Modifier: Answer: Oral Supplement : Body mass index is 27.9 kg/m . Post-Operative Nausea/Vomiting - Received Haldol x1 overnight - PRN Zofran - Getting better with rest/mobility, continue monitoring. Integumentary/Musculoskeletal Active Incisions Wounds Wound Surgical 11/13/23 0808 Sternum (2) Endocrinology Post-Operative Stress Induced Hyperglycemia - - HgbA1c= 10/21/2023: Hemoglobin A1C HPLC 5.3 - Off Insulin gtt, on SSI Hematology Post-operative Acute Blood Loss Anemia - No concern for ongoing blood loss - Stable H/H - CTM daily H/H, no indication for transfusion at this time Post-Operative Thrombocytopenia 11/15/2023: Platelet Count 142 - Secondary to CPB - Bleeding precautions, monitor Anticoagulation Status/Plan Indication: DVT ppx - Medication(s): SQH Elevated INR - 11/14: 1.7 - LFT ok - Monitor Infectious Disease Post-Operative Leukocytosis - WBC up 22.9 today - Likely reactive in post-operative setting - Afebrile - Send UA - Monitor and trend Post-Op Antimicrobial Therapy - Completed Cefazolin and vancomycin Complexity Hypocalcemia - Continue to monitor and replete. Thrombocytopenia - Continue to monitor. 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 rate 19, height 1.829 m (6'), weight 93.3 kg (205 lb 11.2 oz), SpO2 94%. PHYSICAL EXAM: GENERAL: Alert, oriented x 4, resting in emelia, no acute distress HEENT: Head normocephalic, atraumatic, PEERLA, EOMI HEART: RRR, +S1+S2, No murmurs LUNG: Regular, unlabored, CTAB ABD: Soft, Non-Distended, Non-Tender EXT: Warm, no cyanosis, No peripheral edema in bilateral lower extremities. PULSE: Palpable Bilateral DP Pulses MUSC: Moves all 4 Extremities NEURO: Aox4, following commands, QUILES, no focal deficits appreciated PSYCH: Appropriate for the clinical situation SURGICAL INCISIONS Sternal Incision: Prevena in place ANNA Oneal Cardiovascular ICU/ Cardiac Surgery 11/15/23 1:00 PM 17428 Images from the original note were not included. Visit was attempted, but the patient/family was unavailable at the time of visit. Associate Professor Of Archaeology support is available as needed. Chaplains are available in-house 24 hours a day and 7 days a week. For urgent matters in [facility], please page [phone]. If the request is not urgent, please enter a consult. Consults are responded to within 24 hours. Rev. Isaiah Linares MA Tenriism, BCC [facility] Department of Bowling Alley Mechanic and Clinical Pastoral Education [address] [place], [address] ([place]) pager [phone] [email or web address] 11/15/23 1040 Clinical Encounter Type Visited With Health Care Provider;Family not available;Patient not available Visit Type Attempt Crisis Visit Critical care Pastoral Time Spent 15 min Referral Verbal Interventions Provided Supportive presence Bowling Alley Mechanic Education Bowling Alley Mechanic Service Available Yes Plan of Care Continue Visiting PRN CVICU Attending Critical Care Note ASSESSMENT AND PLAN Afsaneh Bowers is a 63 y.o. patient s/p valve-sparring aortic root and hemiarch replacement by Ani Ríos (John),* on surgery date 11/13/2023. ICU Summary: 63 yo male with a PMH of HTN/HLD and CAD who is now s/p procedure above. Intra-op course un-eventful. Important points to emphasize in the critical care management are: - Ascending aortic aneurysm: maintain SBP<130, MAP>65. Off vasoactive medications. Monitor CT output. V wires in place as backup, currently in NSR. ASA/statin, amio prophylaxis - Acute Respiratory Insuffiencey: extubated post-procedure. Wean NC O2 for SpO2>92%, encourage mobilization/IS - Pain: scheduled tylenol/gabapentin. PRN dilaudid/oxycodone - CAD: ASA/statin, holding home metoprolol in setting of bradycardia RELEVANT INFORMATION VITALS: Blood pressure 111/76, pulse 65, temperature 97.7 F (36.5 C), temperature source Axillary, resp. rate 22, height 1.829 m (6'), weight 88.6 kg (195 lb 5.2 oz), SpO2 93%. pH/PCO2/PO2/HCO3: 7.35/50/90/28 (11/12 2202) Documentation of LDA necessity Line necessity: de-line Solano necessity: remove Airway necessity: na I spent 32 minutes providing critical care services and making complex medical decisions for this critically ill patient on behalf of Ani Ríos (John),*. This time includes examining the patients, reviewing patient data, discussions with other providers and speaking to family members. This time does not include performing any procedures. I have discussed this patient with the Resident and agree with their assessment, plan and decision making or have made amendments where appropriate. Documentation of Comorbid Conditions Complexity. Hypocalcemia - Continue to monitor and replete. Any conditions listed below are present on admission unless otherwise specified. .None Ronald Torres MD 11/14/2023 12:47 PM Inpatient Cardiopulmonary Rehab Consultation AND Activity Session Completed. RN approved, as tolerated, and patient agreeable to visit. 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 I have to get back into walking! Patient demonstrated IS x 3 up to 750-1000 mL with proper technique. Activity Session Vitals: 11/14/23 1149 11/14/23 1200 11/14/23 1206 Vital Signs Pulse (Heart Rate) 67 (pre amb) 81 65 (post amb) Heart Rate Source Monitor Monitor Monitor Resp Rate -- 22 -- BP 107/63 111/76 111/76 MAP (mmHg) 80 mmHg 85 mmHg 85 mmHg BP Method Automatic Automatic Automatic BP Location Left arm Left arm Left arm BP Position Lying Sitting Sitting O2 Sat (%) 92 % 92 % 93 % O2 Device nasal cannula with humidification nasal cannula with humidification nasal cannula with humidification Flow (L/min) 1 1 1 Activity/Level of Assistance Amb in brian/Min Ax2-Ax1, 4-WW, chair follow Ambulation Distance (feet) 90 Symptoms Noted During/After Activity None reported Positioning Seated in chair, call light within reach 1 Chest tube, prevena, pacer wires, IV lines, oxygen, telemetry all intact upon leaving the room Activity session details: Patient met supine and required min Ax2 to transfer to EOB. Patient ambulated with Ax1 in hallways. He walked 90 ft total and did not require any breaks with activity. No symptoms reported with activity. RN notified/aware. Encouraged continued ambulation and discussed appropriate activity progression. Patient participation in outpatient cardiac rehab was discussed. Patient is interested in participating in rehab at their local facility: [facility]. Discharge education provided to the patient. Printed materials Provided: Open Heart Surgery Care Guide. Reviewed: Sternal Precautions Handout. Patient s questions/concerns were addressed and topics below were discussed. 1. Activity Restrictions s/p sternotomy (standard) for 6 weeks 2. Rest Time 3. Activity Guidelines/Recommendations 4. Nutrition 5. Medications 6. Coughing and Deep Breathing 7. Incision Care 8. Post Surgery Blues 9. When to Call the Doctor We will continue to follow up with patient as needed until discharge for education review and activity progression. Bety Wayne, MS [phone]) IP Cardiopulmonary & Vascular Rehab Sara Palomares, [phone]) IP Cardiopulmonary & Vascular Rehab CM attempted to visit with patient at bedside to complete assessment. Patient asleep and does not wake to CM in room. CM to revisit as able. Eliza Art RRT Clinical Flash Welding Machine Operator Please note that I am a float Flash Welding Machine Operator. For primary Flash Welding Machine Operatorliner checker, or for up to date coverage, please contact /[facility] main office at [phone]. Acute Care Speech-Language Pathology Clinical Swallow Evaluation Diet recommendation: Recommended Method of Nutrition: PO Recommended Diet Grade: regular Recommended Liquid Consistency: liquid- thin (IDDSI 0) Recommended Medication Administration (as appropriate per MD): Per patient preference Other Recommendations: Discharge Recommendations: Based on the below outcome measures/assessment score(s) and OCCUPATIONAL THERAPY PROFESSOR clinical judgment, discharge destination recommendation is: Skilled OCCUPATIONAL THERAPY PROFESSOR services not warranted at discharge Acute OCCUPATIONAL THERAPY PROFESSOR Outcomes Tracking Communicate basic wants and needs?: yes Demo insight/appreciation of deficits?: yes Complete basic problem solving?: yes Current therapy frequency recommendation in acute care: Swallow Therapy Frequency: no therapy warranted Date of Admission: 11/13/2023 Date of Evaluation: 11/14/2023 Attending Physician: Ani Ríos (John),* General Patient Information Name: Afsaneh Bowers Gender: male Date of : 1960 Primary Diagnosis: ICD-10-CM 1. Aneurysm of ascending aorta without rupture I71.21 2. Dilated aortic root I77.810 3. Aneurysm, ascending aorta I71.21 Past Medical History: Diagnosis Date Arthritis CAD (coronary artery disease) Cardiac angina Essential hypertension, benign GERD (gastroesophageal reflux disease) Heart valve disease Hyperlipidemia HI (myocardial infarction) Vascular disease Past Surgical History: Procedure Laterality Date HEART CATHETERIZATION 10/22/2023 KNEE SURGERY Left SHOULDER SURGERY Left Rotator cuff Pain: General Pain Documentation (Adult, OB, Peds) Presence of Pain: denies pain/discomfort Presence of Pain Score (Auto-calculated): 0 DVPRS (Defense and Veterans Pain Rating Scale) DVPRS: Rest: 0- no pain DVPRS: Activity: 0- no pain Precautions: Patient Safety Communication Prior to Visit: Nursing Lines/Tubes/Drains (Rehab Status): Telemetry, Wound vac, Chest tube Patient History Comments: Pt is a 63 y.o. male who presents per chart with a past medical history of HTN, HLD, CAD, and knee/shoulder ortho surgery. He recently presented to OSH with episodes of stable angina and was found to have aortic root dilation (57mm) and severe trileaflet AV AI. He was not deemed a candidate for CABG as workup revealed no vessel stenosis >60% and minimal iFR change. He presents today for repair ascending aorta aneurysm with valve sparing root repair or suspension with Dr. Chilango Ríos. Prior OCCUPATIONAL THERAPY PROFESSOR history: None on file. Current Method of Nutrition: Route of Nutrition: PO Diet Grade: Full Liquids Liquid Consistency: Thin (IDDSI 0) Respiratory Status: O2 Device: nasal cannula with humidification O2 Sat (%): 92 % Resp Rate: 12 Subjective information: Pleasant and agreeable to evaluation. Reports subjective difficulty swallowing after intubation, however unable to elaborate. Denies coughing, choking, or food/liquid feeling stuck. Reports trouble swallowing pills, however reports trouble swallowing pills prior to admission. Exam limited by cognition: No Objective Evaluation: Oral Motor: Cranial Nerve Exam CN V (Trigeminal) strong equal bilateral strength of masseter and temporal muscles CN VII (Facial) strong bilateral movement of upper and lower face CN IX (Glossopharyngeal) hoarseness CN X (Vagus) hoarseness CN XI (Accessory) raises head off pillow without difficulty CN XII (Hypoglossal) clearly articulated speech Vocal Quality: hoarse GRBAS: A perceptual rating scale for voice parameters Rating scale of 0 to 3 0 = no impairment 1 = minimal to mild impairment 2 = moderate impairment 3 = severe impairment Subjective Voice Evaluation Grade of dysphonia (G): 1 Roughness (R): 1 Breathiness (B): 0 Asthenia (A): 0 Strain (S): 0 Positioning: High Doshi's (60-90 degrees) Anticipatory Phase: Intact Foods and Liquids Trialed: Modality: Amount: Thin Straw x10 Regular solid Self-fed 1/2 cracker Oral Phase Function Comments Oral Mucosa Intact Dentition Natural teeth Labial Closure Intact Mastication Functional Oral Stasis Present Cough before the swallow Absent Oral Phase Summary: Oral phase grossly functional. Slightly prolonged mastication with regular solids, occasional oral stasis but able to clear with independent liquid wash. Pharyngeal Phase Function Comments Perceived Swallow Present Cough Response No Throat Clear No Subjective Complaint of Residue Absent Pharyngeal Phase Summary: Pharyngeal phase appears functional, no overt s/s of aspiration throughout. Strategies Trialed: Strategy: Effectiveness: [place] Swallow Screen: (administered by: RN on 11/12/2022) [place] Swallow Screening Screening Exclusion Criteria: none, continue with [place] Swallow Screening Cognitive Screen: Orientation: able to give name, able to name place, able to name current year Cognitive Screen: Command Following: able to open mouth, able to stick out tongue, able to smile Oral Motor Function : able to close lips, able to move tongue to corners of lips, able to stick out tongue past lips, able to pucker lips and smile 3 oz. Water Swallow Challenge : no deficit-passed [place] Swallow Screening Result: passed=cleared for oral intake Voice and Swallow Outcomes: Functional Oral Intake Scale: Level 7 - Total oral intake with no restrictions Clinical Impression: Afsaneh Bowers presents with suspected functional oropharyngeal swallowing abilities in the setting of admission for repair of ascending aorta aneurysm with valve sparing root repair. Demonstrated slightly prolonged mastication, however complete oral clearance with use of liquid wash. No overt s/s of aspiration throughout. Recommend diet of regular solids and thin liquids, liquid wash as needed. No skilled OCCUPATIONAL THERAPY PROFESSOR services warranted, OCCUPATIONAL THERAPY PROFESSOR to sign off. Plan for next session: n/a Patient Education/Instruction Learners: Patient Education provided: Dysphagia recommendations/impressions, Role of this discipline Teaching method: Verbal Education/Instruction Learner response: Applies knowledge Learning preferences: Auditory Learning considerations: No barriers/ready to learn Acute OCCUPATIONAL THERAPY PROFESSOR Goals Notes from 11/13/2023 11:12 PM through 11/14/2023 11:12 AM 1. Pt will verbalize understanding of results and recommendations from today's evaluation. - Goal met. Speech Language Pathologist: ELODIA Thomas Time In: 0959 Time Out: 1007 Total Visit Time: 8 minutes Total Treatment Time (skilled, billable minutes): 8 minutes PPE used during patient interaction: facemask, gloves Patient location/status at end of session: bed with head of bed elevated Patient alarms at end of session: none altered Needs in reach. OCCUPATIONAL THERAPY PROFESSOR Evaluation and Treatment Time Swallowing Eval [id number]: 8 Upon discontinuation of Acute Care Speech Therapy Services or patient discharge from the hospital this note represents the current Speech Therapy Discharge Summary Acute Physical Therapy Evaluation Prior to Admission AMPA score(s): PRIOR LEVEL AM-PAC Mobility Raw Score: 24 Current AM-PAC score(s): CURRENT AM-PAC Mobility Raw Score: 17 Based on the above AM-PAC score(s) and PT clinical judgment, patient is a good candidate for discharge to (with initial increased supervision from son) Highest Level of activity achieved on this date Gait Bremer Level: Gait: contact guard assist Physical Assist: Gait: chair follow, 1 person + 1 person to manage equipment Assistive Device: Gait: rollator Ambulation Distance (Feet): 100 Mobility equipment available at home: ADL equipment available at home: grab bars Equipment needed for discharge: Current therapy frequency recommendation in acute: Therapy Frequency: 5 times a week Precautions and Weightbearing Status: Existing Precautions/Restrictions: cardiac, standard sternal Telemetry, Wound vac, Chest tube Patient Safety Communication Prior to Visit: Nursing Subjective: Agreeable to PT session. Pain: General Pain Documentation (Adult, OB, Peds) Presence of Pain: denies pain/discomfort Presence of Pain Score (Auto-calculated): 0 Home Setting Residence: House Lives With: (going to son's house) First floor setup: half bath Second floor setup: bedroom (pt stated he could not remember what kind of shower his son has) Number of stairs to enter home: 3 Number of stairs in home: 10 Stair Railings at Home: entry - present on right side (ascending), interior - present on left side (ascending) ADL Equipment Available: grab [employer] Home Environment Details: Pt's son works during the day but will be available at night. 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 Objective/Observation: Vitals/Vitals Responses to Treatment: Vitals WFL with no abnormal signs or symptoms reported or observed throughout session. O2 Device: nasal cannula with humidification Cognition Overall Cognitive Status: Within Functional Limits Extremity Assessments: RLE Assessment RLE Assessment: Within Functional Limits LLE Assessment LLE Assessment: Within Functional Limits Sensation Overall Sensation: (Denies numbness/tingling) Mobility Assessment: Sit to Supine Mobility Bremer Level: Sit->Supine: maximum assist (25% patient effort) Physical Assist: Sit->Supine: 2 person assist Bed Features/Set-up: Sit->Supine: Flat Skilled Rationale: Verbal cues, Tactile cues, Technique of activity Balance: Sitting Balance Static Sitting-Level of Assistance: Standby Dynamic Sitting-Level of Assistance: Standby Standing Balance Static Standing-Level of Assistance: Stand-by assist Dynamic Standing-Level of Assistance: Contact guard Standing-Balance Support: Rollator Transfer Assessment: Sit to Stand Transfer Bremer Level: Sit->Stand: contact guard assist Physical Assist: Sit->Stand: 1 person + 1 person to manage equipment Assistive Device: Sit->Stand: rollator Skilled Rationale: Verbal cues, Tactile cues, Facilitate anterior shift Stand to Sit Transfer Bremer Level: Stand->Sit: contact guard assist Physical Assist: Stand->Sit: 1 person + 1 person to manage equipment Assistive Device: Stand->Sit: rollator Skilled Rationale: Verbal cues, Tactile cues, Controlled descent for sitting Gait/Functional Mobility: Gait Assessment Bremer Level: Gait: contact guard assist Physical Assist: Gait: chair follow, 1 person + 1 person to manage equipment Assistive Device: Gait: rollator Ambulation Distance (Feet): 100 Gait Deviations Identified: decreased jennifer, decreased gait speed Gait Skilled Rationale: tactile, upright posture, proximity of assistive device Stairs: Outcome Score(s): CURRENT AM-PAC Basic Mobility Inpatient Short Form Turning over in bed: 3 - A Little Assistance Sitting/standing from chair: 3 - A Little Assistance Moving from lying on back to sittin - A Lot of Assistance Moving to and from bed to chair: 3 - A Little Assistance Walk in hospital room: 3 - A Little Assistance Climbing 3-5 steps with a railin - A Little Assistance CURRENT [facility] Mobility Raw Score: 17 CURRENT [facility] Mobility Functional Limitation/Modifier: 50.57% Currently Impaired in Basic Mobility - CK Interventions: Assessment & Plan: Patient was admitted for Aneurysm, ascending aorta [I71.21] Aneurysm of ascending aorta [I71.21] s/p valve-sparring aortic root and hemiarch replacement by Ani Ríos (John),* on surgery date and seen for therapy evaluation related to safety with functional mobility. Exam findings include impairments in: Strength, Balance, Transfers, Gait/Locomotion, Aerobic capacity/endurance. These impairments contribute to functional limitations including Ambulation/locomotion pain, Decreased ambulation distance/endurance, Difficulty stair climbing/descent, Increased fall risk, Difficulty with bed mobility, Difficulty with transfers, Decreased functional mobility Current clinical presentation is Evolving - changing/inconsistent clinical characteristics (Moderate). Patient history factors impacting Plan Of Care include . Patient will benefit from skilled physical therapy to address these impairments, functional limitations, and participation restrictions and has good rehab potential to achieve therapy goals. Planned Therapy Interventions: balance training, bed mobility training, endurance, functional activity tolerance, gait training, strengthening, transfer training Patient Instruction/Education this session: Learners: Patient Education provided: Plan of care, Role of this discipline, Safety Plan for next session: Promote transfers and ambulation per pt tolerance. Acute PT Goals Plan of Care by Daniel Martinez, PT at 11/14/2023 9:35 AM Version 1 of 1 Problem: PT - General Goals Goal: Supine <-> Sit Transfers - Patient will perform supine to/from sit transfers with independence and without use of hospital bed features in order to improve functional mobility and safety. Outcome: Ongoing Goal: Sit <-> Stand Transfers - Patient will perform sit to/from stand transfers with modified independence and least restrictive device in order to improve functional mobility and safety. Outcome: Ongoing Goal: Ambulation - Patient will ambulate 400 feet with modified independence and least restrictive device to improve ability to safely navigate home and community. Outcome: Ongoing PT treatment consisted of the following to progress towards the above goal(s): PT Evaluation and Treatment Time PT Evaluation (Moderate) Time Entry: 25 Evaluating Therapist: Daniel Martinez PT Additional Details: PT Co-Eval/Treatment Information Co-evaluation/co-treatment performed?: Yes, simultaneous billable skilled care was necessary due to medical complexity and functional deficits Other discipline: OT Rationale for need to co-eval/treat: postural control Evaluation Complexity Components History: Moderate (1-2 personal factors and/or comorbidities) Body Systems Review: Moderate (Addressing a total of 3 or more elements) Clinical Presentation: Evolving - changing/inconsistent clinical characteristics (Moderate) Clinical Decision Making: Moderate Time In: 909 Time Out: 934 Total Visit Time: 25 minutes Total Treatment Time (skilled, billable minutes): 25 minutes PPE used during patient interaction: facemask, gloves Patient location at end of session: bed with head of bed elevated Alarms on at end of session: RN aware Needs in reach. Upon discontinuation of Acute Care Physical Therapy Services or patient discharge from the hospital this note represents the current Physical Therapy Discharge Summary. Acute Occupational Therapy Evaluation Prior to Admission AM-PAC Score: PRIOR LEVEL AM-PAC Activity Raw Score: 24 Current AM-PAC score(s): CURRENT AM-PAC Activity Raw Score: 14 Based on the above AM-PAC score(s) and OT clinical judgment, discharge destination recommendation is: Home Barriers to discharge home: Patient needs assistance with ADLs, Patient needs assistance with functional mobility Mobility equipment available at home: ADL equipment available at home: grab bars Equipment recommendations for discharge: to be determined Current therapy frequency recommendation(s) in acute: 5 times a week Activity Recommendations for outside of rehab session: OOB for all meals and 3 walks per day Precautions and Weightbearing Status: OT Existing Precautions/Restrictions: standard sternal, supplemental oxygen Telemetry, Wound vac, Chest tube Patient Safety Communication Prior to Visit: Nursing Subjective: I'm nauseous but I'll try and get up. Pain: General Pain Documentation (Adult, OB, Peds) Presence of Pain: denies pain/discomfort Presence of Pain Score (Auto-calculated): 0 Home Setting Residence: House Lives With: (going to son's house) First floor setup: half bath Second floor setup: bedroom (pt stated he could not remember what kind of shower his son has) Number of stairs to enter home: 3 Number of stairs in home: 10 Stair Railings at Home: entry - present on right side (ascending), interior - present on left side (ascending) ADL Equipment Available: grab bars Home Environment Details: Pt's son works during the day but will be available at night. 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 IADL History IADLs: independent Objective/Observation: Vitals/Vitals Responses to Treatment: 11/14/23 0910 Vitals ICU/PCU Pulse (Heart Rate) 59 Resp Rate 12 BP 105/56 MAP (mmHg) 75 mmHg Oxygen Therapy O2 Sat (%) 94 % O2 Device nasal cannula with humidification Flow (L/min) 2 O2 Device: nasal cannula with humidification Flow (L/min): 2 Vision Screen Currently wearing corrective lenses: Reading only Hearing Hearing: no gross deficits noted Cognition Overall Cognitive Status: Within Functional Limits ADLs: ADL Anticipated Performance (ADLs not directly observed this session): Eating, Grooming, Bathing, UE Dressing, Toileting Eating Assistance: Independent Grooming Assistance: Stand by Bathing Assistance: Moderate UE Dressing Assistance: Moderate LE Dressing Assistance: Total LE Dressing Location: seated in chair LE Dressing Intervention/Details: Pt unable to bend over/utilize figure 4 method to don socks due to incisional pain/line management, requiring totalA from therapist. Toilet Assistance: Moderate Extremity Assessments: RUE Assessment Right UE Assessment Details: WFL within parameters of sternal precautions LUE Assessment Left UE Assessment Details: WFL within parameters of sternal precautions Balance: Sitting Balance Static Sitting-Level of Assistance: Standby Dynamic Sitting-Level of Assistance: Standby Standing Balance Static Standing-Level of Assistance: Stand-by assist Dynamic Standing-Level of Assistance: Contact guard Standing-Balance Support: 4 wheeled walker Neuro: Sensation Overall Sensation: Intact Mobility Assessment: Sit to Supine Mobility Bremer Level: Sit->Supine: maximum assist (25% patient effort) Physical Assist: Sit->Supine: 2 person assist Bed Features/Set-up: Sit->Supine: Flat Skilled Rationale: Positioning, Sequencing, Verbal cues, Hand placement, Maintain precautions Transfer Assessment: Sit to Stand Transfer Bremer Level: Sit->Stand: contact guard assist Physical Assist: Sit->Stand: 1 person + 1 person to manage equipment Assistive Device: Sit->Stand: 4 wheeled walker, armed chair Skilled Rationale: Positioning, Sequencing, Hand placement, Verbal cues, Maintain precautions Stand to Sit Transfer Bremer Level: Stand->Sit: contact guard assist Physical Assist: Stand->Sit: 1 person + 1 person to manage equipment Assistive Device: Stand->Sit: 4 wheeled walker Skilled Rationale: Sequencing, Positioning, Hand placement, Verbal cues, Technique of activity, Maintain precautions Functional Mobility: Functional Mobility Bremer Level: Functional Mobility/Gait: contact guard assist Physical Assist: Functional Mobility/Gait: 1 person + 1 person to manage equipment, chair follow Assistive Device: Functional Mobility/Gait: 4 wheeled walker Functional Mobility Distance: Distance needed for common household mobility Functional Mobility Deficits: Activity tolerance, Shortness of breath Functional Mobility Skilled Rationale: Breathing strategies, Proper pacing Skilled Intervention/Details - Functional Mobility/Gait: 100' Outcome Score(s): CURRENT [facility] Daily Activity Inpatient Short Form Putting on/Taking Off Lower Body Clothin - Total Assistance Bathin - A Lot of Assistance Toiletin - A Lot of Assistance Putting on/Taking Off Upper Body Clothin - A Lot of Assistance Groomin - A Little Assistance Eatin - No Assistance CURRENT [facility] Activity Raw Score: 14 CURRENT -[facility] Activity Functional Limitation/Modifier: 59.67% Currently Impaired in Daily Activity - CK PROJECTED AM-[facility] Activity Raw Score: 24 PROJECTED AM-[facility] Activity Functional Limitation/Modifier: 0.00% - CH Assessment & Plan: Patient was admitted for Ascending aortic repair on 11/12 and seen for therapy evaluation related to deficits in self-care tasks and mobility due to generalized weakness, activity tolerance deficits, and sternal precautions. Exam findings include impairments in: balance, endurance, ergonomics and body mechanics, pain, transfers, strength. These impairments contribute to occupational performance limitations including bathing, dressing, toileting, functional mobility, ADL transfers, body mechanics. The following factors impact the plan of care: HTN, HLD, and CAd Patient will benefit from skilled occupational therapy to address these impairments, occupational performance limitations, and participation restrictions. Patient's rehab potential is: good. Planned Therapy Interventions (OT Eval): ADL retraining, balance training, bed mobility training, functional activity tolerance, strengthening, transfer training (fall prevention) Patient Instruction/Education this session: Learners: Patient Education provided: Plan of care, Precautions/weight bearing status Teaching method: Verbal Education/Instruction Learner response: Applies knowledge, Needs review Learning preferences: Auditory Learning considerations: No barriers/ready to learn Plan for next session: Standing ADLs Acute OT Goals Plan of Care by Jeanette Romo OT at 11/14/2023 12:41 PM Version 1 of 1 Problem: OT - ADLs Goal: Lower Body Dressing - Patient will complete lower body dressing tasks with modified independence using adaptive equipment/compensatory strategies as needed for improved ability to complete self-care activities. Outcome: Progressing Goal: Toileting - Patient will complete toileting task with modified independence and adaptive equipment as needed for improved ability to safely complete self-care activities. Outcome: Progressing Goal: Bathing - Patient will perform full body bathing routine with modified independence for improved ability to complete self-care activities Outcome: Progressing Problem: OT - Transfers Goal: Transfers Toilet/ Bedside Commode - Patient will transfer to/from toilet/bedside commode with modified independence for improved ability to safely complete ADLs. Outcome: Progressing Problem: OT - Balance Goal: Balance - Standing - Patient will perform 5 minutes of functional task in standing with modified independence and good balance to promote safety and improved balance required for self-care activities. Outcome: Progressing Problem: OT - Other Goal: Precaution Adherence - Patient will demonstrate 100% adherence to precautions during all ADLs and functional transfers to promote safety during daily routine. Outcome: Progressing OT treatment consisted of the following to work and progress towards the above goal(s): OT Evaluation and Treatment Time OT Evaluation (Moderate) Time Entry: 26 Evaluating Therapist: Jeanette Romo OT Additional Details: OT Co-Eval/Treatment Information Co-evaluation/co-treatment performed?: Yes, simultaneous billable skilled care was necessary due to medical complexity and functional deficits Other discipline: PT Rationale for need to co-eval/treat: postural control, coordination issues (balance deficits) Co-treatment goal focus: balance, mobility, transfer, endurance, self-care, strength, cognition OT Evaluation Complexity Occupational Profile and Client History: Moderate - expanded history Assessment of Occupational Performance: Moderate (3-5 performance deficits) Clinical Decision/Performance Deficits: Moderate (detailed assessments w/several treatment options) Time In: 909 Time Out: 935 Total Visit Time: 26 minutes Total Treatment Time (skilled, billable minutes): 26 minutes Assisted by during session: Robert, PT PPE used during patient interaction: gloves, facemask Patient location at end of session: bed with head of bed elevated Alarms on at end of session: RN aware Needs in reach. Upon discontinuation of Acute Care Occupational Therapy Services or patient discharge from the hospital this note represents the current Occupational Therapy Discharge Summary. CVICU DAILY PROGRESS NOTE. HISTORY OF PRESENT ILLNESS: Mr. Bowers is a 63 y.o. male who has past medical history of HTN, HLD, CAD, and knee/shoulder ortho surgery. He recently presented to OSH with episodes of stable angina and was found to have aortic root dilation (57mm) and severe trileaflet AV AI. He was not deemed a candidate for CABG as workup revealed no vessel stenosis >60% and minimal iFR change. He presented on 11/12 for repair ascending aorta aneurysm with valve sparing root repair or suspension with Dr. Chilango Ríos. DATE OF SURGERY: 11/12 PROCEDURE: 1. Valve-sparing aortic root replacement (remodeling technique, 34 mm Gelweave Valsalva graft). 2. Replacement, ascending aorta. 3. Replacement, aortic arch, as a ebony-arch procedure with control of head and neck vessels (26 mm Ante-Valdemar graft). 4. Aortic valve repair. 5. Hypothermic circulatory arrest with antegrade cerebral perfusion via the innominate artery. SURGEON: Dr. Chilango Ríos POD: 1 Code Status: Full 24-hour interval history: -Extubated yesterday, central/A-line discontinued. Nauseous over night, haldol x1. Remains on 2 L NC O2. Plan for 11/14/2023: - Full liquid diet - Resume home crestor - DC solano - PT/OT, OOB - Speech evaluation, start regular diet - Wean off oxygen with goal SPO2>92% - Keep CT - Likely progress to PCU later today Discharge Planning/CARLOS/Discharge Readiness: Anticipated, TBD Follow up: TBD Imaging follow up plan: CTA TBD Dr. Chilango Ríos recommends home health services upon discharge including PT, OT, and long term as indicated SURGICAL PLAN Pre-op AARON: LVEF 60%, nl LV diastolic function, Atria: normal right and left Mitral valve: mild regurgitation, normal leaflets Aortic valve: Normal AV annulus (24mm), Normal leaflets, moderate AV regurgitation, no stenosis Tricuspid Valve: normal leaflets, no stenosis, trace regurgitation Pulmonic Valve: Normal annulus, leaflets, trace regurg, no stenosis, normal pulmonary artery Aorta: Asc Ao Diameter 56mm, Annulus 24mm, Ao Arch Diameter 29mm Pericardium: no effusion or abnormality Post-op AARON: Pending Chest Tube Mgmt: #1: Mediastinal straight chest tubes. #2: Mediastinal straight chest tubes. Plan for today: Continue to suction Pacing Wires: Ventricular Plan: Remove TBD Sutures/Inez Plan: Prevena Remove POD 7 PA/LAT Chest X-ray: To be ordered once all chest tubes are removed OT shower complete? No consult OT once all tubes and wires are out. SYSTEM BASED PLAN . Neurological: Acute Post-Operative Pain - -Pain well controlled per pt report this AM -Scheduled gabapentin for 3 days and Tylenol 650 mg Q4 hrs -PRN Oxy and tylenol. Agitation/Delirium- Overall CAM-ICU: Negative Delirium precautions Day/night sleep cycle, sleep hygiene Cardiovascular: Aortic root dilation (57mm) and severe trileaflet AV AI s/p Repair Ascending Aortic Aneurysm w/ Valve-Sparing Root Repair Or Suspension (Midline) - Normal Pathway - Monitor CT output. - V wires in place as backup, currently in NSR. - ASA/statin, amio prophylaxis - Goal SBP<130, MAP>65 CAD w/NSTEMI -[facility] 10/22 w/ 60% stenosis in proximal LAD artery with an iFR of 0.98, non-significant physiologic stenosis. 40% stenosis in the first diagonal branch (wire placed in the larger inferior branch after the bifurcation) with an iFR of 0.99 representing a non-significant physiologic stenosis. There is a 20% stenosis in the proximal left circumflex artery. - Asymptomatic currently - ASA 325 mg daily - Resume home rosuvastatin - BB on hold due to bradycardia/soft BP Hypertension- - SBP goal <130, MAP >65 mmHg - Home medications: metoprolol xL 25mg daily- held - Resume home metoprolol as tolerated Hyperlipidemia- -continue home statin.- rosuvastatin 20mg daily Pulmonary: Acute post-Operative Respiratory Insufficiency -Extubated 11/12 -On 2 L NC O2 -Maintain O2 Sat > 92% with oxygen as needed -Wean supplemental oxygen/support as able. -Incentive Spirometry while awake -Plan: Pulmonary toilet Renal: At Risk for SHERLYN d/t Ascending Aortic Aneurysm repair w/Bypass -Baseline Creatinine: 0.90 -Baseline GFR: > 90 mg/mmol -Creatinine 0.95 from 0.94 this AM -Urine output: good -Monitor chemistries -Avoid nephrotoxic agents Electrolyte abnormalities: Hypocalcemia - Electrolyte replacement per protocol Electrolyte replacement per protocol, Maintain K>4.5 Electrolyte replacement per protocol, Maintain Mg>3.0 Gastrointestinal: Acute Post Operative Constipation - -Last BM prior to admit -Bowel regimen in place with scheduled miralax and senna. -PRN dulcolax suppository. Diet: Current Diet Orders Procedures DIET LIQUID Full liquid. Standing Status: Standing Number of Occurrences: 1 : Body mass index is 26.49 kg/m . Post-Operative Nausea/Vomiting -Received Haldol x1 overnight -PRN Zofran -Getting better with rest/mobility, continue monitoring. Integumentary/Musculoskeletal Active Incisions Wounds - Wound Surgical 11/13/23 0808 Sternum (1) -Clean/dry/intact -Mobility with PT/OT Endocrinology Post-Operative Stress Induced Hyperglycemia - - Off Insulin gtt, on SSI - HgbA1c= 10/21/2023: Hemoglobin A1C HPLC 5.3 Hematology Post-operative Acute Blood Loss Anemia -No concern for ongoing blood loss -Stable H/H -CTM daily H/H, no indication for transfusion at this time Post-Operative Thrombocytopenia 11/14/2023: Platelet Count 158 - Secondary to S/P as above - bleeding precautions, monitor Anticoagulation Status/Plan - Indication: NSTEMI - Medication(s): ASA, Infectious Disease Post-Operative Leukocytosis - - WBC 15.9, Reactive in post-operative setting - Pt is afebrile at this time, low suspicion for infection - Monitor and trend Post-Op Antimicrobial Therapy - Completed Cefazolin and vancomycin Complexity Hypocalcemia - Continue to monitor and replete. ICU Liberation Checklist: Breathing: SBT: [] Passed [] Failed [] Does not meet criteria [x] N/A SAT: [] Yes [] No [x] N/A PIV Assessed insertion site: [x] Yes [] No Choice of Analgesia/Sedation: Pain: [x] Controlled [] Uncontrolled Continuous Infusions: [] Sedation [] Analgesia [] NMB [x] None Delirium: Overall CAM-ICU: Negative CAM: [] Positive [x] Negative [] Unable to assess Restraints: [x] None [] Soft limb [] Ronal mitts [] Other Prophylaxis Bundle: HOB: 30 degrees Stress ulcer ppx: [x] Yes [] Therapeutic [] Home regimen [] No, not indicated Chemical DVT ppx: [x] Yes [] No, SCDs ordered Therapy Services: OCCUPATIONAL THERAPY PROFESSOR: [x] Swallow [] Cognitive Eval [] Speaking Valve [] N/A Early Mobility: PT/OT consulted: [x]Yes [] No, d/t clinical status [] No, pt is independent Current Mobility Status: PT/OT, OOB OBJECTIVE VITALS: Blood pressure 106/57, pulse 58, temperature 98.8 F (37.1 C), temperature source Oral, resp. rate 15, height 1.829 m (6'), weight 88.6 kg (195 lb 5.2 oz), SpO2 93%. PHYSICAL EXAM: GENERAL: Alert, oriented x 4, resting in emelia, no acute distress HEENT: Head normocephalic, atraumatic, PEERLA, EOMI HEART: RRR, +S1+S2, No murmurs LUNG: Regular, unlabored, CTAB ABD: Soft, Non-Distended, Non-Tender EXT: Warm, no cyanosis, No peripheral edema in bilateral lower extremities. PULSE: Palpable Bilateral DP Pulses MUSC: Moves all 4 Extremities NEURO: Aox4, following commands, QUILES, no focal deficits appreciated PSYCH: Appropriate for the clinical situation SURGICAL INCISIONS Sternal Incision, Prevena in place KT Bishop Cardiovascular ICU/ Cardiac Surgery 11/14/23 8:10 AM CARDIAC SURGERY NOTE POD 1 VSRR - ascending aorta hemiarch replacement Extubated last night around 6 pm Sitting up in chair this morning. Neurologically intact reviewing his anticipated hospital stay with me. Cr 0.95 GFR 89 Hgb 11.2 PLAN: Pathway Chilango Ríos MD 11/13/23 9787 Assessment Type ## Assessment-Evaluation initial RT Intervention Assessment-Evaluation Assessment Type adult critical care Reason for Assessment post extubation Respiratory Therapy NON-Vent Assessment Afsaneh Bowers is a 63 y.o. male Full Code No active isolations Admit reason: No chief complaint on file. The primary encounter diagnosis was Aneurysm of ascending aorta without rupture. Diagnoses of Dilated aortic root and Aneurysm, ascending aorta were also pertinent to this visit. Pulm/Smoking Hx: Past Medical History: Diagnosis Date Arthritis CAD (coronary artery disease) Cardiac angina Essential hypertension, benign GERD (gastroesophageal reflux disease) Heart valve disease Hyperlipidemia HI (myocardial infarction) Vascular disease Social History Tobacco Use Smoking status: Never Passive exposure: Never Smokeless tobacco: Never Substance Use Topics Alcohol use: Never Oxygen Therapy: O2 Device: O2 Device: nasal cannula with humidification Flow: Flow (L/min): 4 Oxygen Concentration: Oxygen Concentration (%): 40 O2 Sat: O2 Sat (%): 100 % IBW VT: mL/kg IBW Tidal Volume (Actual): 6.12 Recent pertinent labs: Ptt/Pt/Inr: 28.8/16.6/1.4 (11/12 1757) WBC/Hgb/Hct/Plts: 20.73/11.3/33.4/139 (11/12 153-11/12 1757) Recent ABG/VBG: pH/PCO2/PO2/HCO3: 7.33/50/97/26 (11/12 1757) Current Orders: Oxygen therapy Plan of care/Rounds Updates: Patient extubated to 4L nc. Signed: Philly Rodriguez RCP 11/13/2023 6:59 PM CVICU Attending Critical Care Note ASSESSMENT AND PLAN Afsaneh Bowers is a 63 y.o. patient s/p valve-sparring aortic root and hemiarch replacement by Ani Ríos (John),* on surgery date 11/13/2023. ICU Summary: 63 yo male with a PMH of HTN/HLD and CAD who is now s/p procedure above. Intra-op course un-eventful. Important points to emphasize in the critical care management are: - Ascending aortic aneurysm: maintain SBP<130, MAP>65. Added nicardipine for HTN post-procedure. Monitor CT output. V wires in place as backup, currently in NSR. ASA/statin, amio prophylaxis - Acute Respiratory Insuffiencey: wean to extubate post-procedure. Titrate FiO2 to maintain SpO2>92%. Encourage IS/deep breathing once extubated. - Pain: scheduled tylenol. PRN dilaudid/oxycodone RELEVANT INFORMATION VITALS: Blood pressure 156/82, pulse 57, temperature 97.4 F (36.3 C), temperature source Axillary, resp. rate 18, height 1.829 m (6'), weight 90.8 kg (200 lb 3.2 oz), SpO2 99%. pH/PCO2/PO2/HCO3: 7.41/41/311/26 (11/12 1538) Documentation of LDA necessity Line necessity: vasopressors, hemodynamic monitoring Solano necessity: strict I/O's Airway necessity: acute respiratory insuffiencey I spent 40 minutes providing critical care services and making complex medical decisions for this critically ill patient on behalf of Ani Ríos (John),*. This time includes examining the patients, reviewing patient data, discussions with other providers and speaking to family members. This time does not include performing any procedures. I have discussed this patient with the Resident and agree with their assessment, plan and decision making or have made amendments where appropriate. Documentation of Comorbid Conditions Complexity. Thrombocytopenia - Continue to monitor. Any conditions listed below are present on admission unless otherwise specified. .None Ronald Torres MD 11/13/2023 4:31 PM CVICU DAILY PROGRESS NOTE. HISTORY OF PRESENT ILLNESS: Mr. Bowers is a 63 y.o. male who has a pertinent past medical history including HTN, HLD, CAD, and knee/shoulder ortho surgery. He recently presented to OSH with episodes of stable angina and was found to have aortic root dilation (57mm) and severe trileaflet AV AI. He was not deemed a candidate for CABG as workup revealed no vessel stenosis >60% and minimal iFR change. He presents today for repair ascending aorta aneurysm with valve sparing root repair or suspension with Dr. Chilango Ríos. DATE OF SURGERY: 11/13/23 PROCEDURE: SURGEON: Dr. Chilango Ríos POD: Day of Surgery Code Status:Full Code 24-hour interval history: Aortic aneursym repair with Dr. Ríos. Remodeling technique valve sparing aortic root repair (Ninoska) hemiarch with 34 mm and 26 mm grafts No complications, v-wires placed.DHCA with ACP = 17min. Cross clamp time of 173min. Two Mediastinal straight chest tubes. Given 2 units of Cryo intra-op, 2.8L of crystalloid, 900cc cell saver. 1.2L of UOP. Anesthesiology noted multiple attempts for AARON placement, gave dexamethasone. Brought to the CVICU intubated/sedated, off pressors. Started on Nicardipine infusion for hypertension. Otherwise hemodynamically stable, NSR. Plan for 11/13/2023: - Started Nicardipine infusion - Normotensive goal, SBP<130, MAP>65 . - ASA/statin, amio prophylaxis - Cryo for Low fibrinogen - Wean propofol - Wean to extubate when able. Titrate FiO2 to maintain SpO2>92%. Encourage IS/deep breathing once extubated. - If CVP is low, give fluids - PRN dilaudid/oxy SURGICAL PLAN Pre-op AARON: LVEF 60%, nl LV diastolic function, Atria: normal right and left Mitral valve: mild regurgitation, normal leaflets Aortic valve: Normal AV annulus (24mm), Normal leaflets, moderate AV regurgitation, no stenosis Tricuspid Valve: normal leaflets, no stenosis, trace regurgitation Pulmonic Valve: Normal annulus, leaflets, trace regurg, no stenosis, normal pulmonary artery Aorta: Asc Ao Diameter 56mm, Annulus 24mm, Ao Arch Diameter 29mm Pericardium: no effusion or abnormality Post-op AARON: - pending official note Chest Tube Mgmt: #1: Mediastinal straight chest tubes. #2: Mediastinal straight chest tubes. Pacing Wires: Ventricular Sutures/Torres Plan: to be determined PA/LAT Chest X-ray: - No acute post-operative findings OT shower complete? - pending SYSTEM BASED PLAN . Neurological: Acute Post-Operative Pain -- CPOT Score (0-8): 7 (11/12 1558) CPOT Score (0-8): 7 (11/12 1558) Scheduled gabapentin for 3 days, PRN dilaudid, oxy and tylenol. Agitation/Delirium- Overall CAM-ICU: Negative Delirium precautions Day/night sleep cycle, sleep hygiene Wean propofol aggressively for goal of extubation Cardiovascular: Aortic root dilation (57mm) and severe trileaflet AV AI s/p Repair Ascending Aortic Aneurysm w/ Valve-Sparing Root Repair Or Suspension (Midline) - Normal Pathway - Monitor CT output. - V wires in place as backup, currently in NSR. - ASA/statin, amio prophylaxis - Started Nicardipine infusion for hypertension - Normotensive goal, SBP<130, MAP>65 CAD w/NSTEMI [facility] 10/22 w/ 60% stenosis in proximal LAD artery with an iFR of 0.98, non-significant physiologic stenosis. 40% stenosis in the first diagonal branch (wire placed in the larger inferior branch after the bifurcation) with an iFR of 0.99 representing a non-significant physiologic stenosis. 3) There is a 20% stenosis in the proximal left circumflex artery. - ASA 81mg Hypertension- SBP goal <130, MAP >65 mmHg Home medications: metoprolol xL 25mg daily- held - Nicardipine infusion Hyperlipidemia- continue home statin.- rosuvastatin 20mg daily Prophylactic Antiarrythmic: Yes - Amiodarone Pulmonary: Acute respiratory insufficiency Mechanical ventilation post-operatively - SBT and SAT when able - extubate Maintain O2 Sat > 92% with oxygen as needed Wean supplemental oxygen/support as able. Incentive Spirometry while awake Plan: Pulmonary toilet/diuresis Renal: At Risk for SHERLYN d/t Ascending Aortic Aneurysm repair w/Bypass Baseline Creatinine: 0.90 Baseline GFR: > 90 mg/mmol Urine output: good Monitor chemistries Avoid nephrotoxic agents. Gastrointestinal: Risk for Acute Post Operative Constipation - . Bowel regimen in place with scheduled miralax and senna. PRN dulcolax suppository. Diet: DIET NPO with meds Body mass index is 27.15 kg/m . 10/21/2023: Albumin 3.3 10/22/2023: Prealbumin 24 Integumentary/Musculoskeletal Active Incisions Wounds - Wound Surgical 11/13/23 0808 Sternum (0) Endocrinology Post-Operative Stress Induced Hyperglycemia - Postoperative Insulin gtt transition to SSI HgbA1c= 10/21/2023: Hemoglobin A1C HPLC 5.3 Hematology Post-operative Acute Blood Loss Anemia Hbg 11.3 No concern for ongoing blood loss CTM daily H/H, no indication for transfusion at this time Post-Operative Thrombocytopenia 11/13/2023: Platelet Count 133 - bleeding precautions, monitor Anticoagulation Status/Plan - Indication: NSTEMI - Medication(s): ASA, restart Hep POD#1 - INR Goal: Infectious Disease Post-Operative Leukocytosis - - Reactive in post-operative setting - Pt is afebrile at this time, low suspicion for infection - Monitor and trend Post-Op Antimicrobial Therapy - Cefazolin Complexity Thrombocytopenia - Continue to monitor. ICU Liberation Checklist: ABCDEF Bundle Reviewed: [x] Yes [] No Breathing: SBT: [] Passed [] Failed [] Does not meet criteria [x] N/A SAT: [] Yes [] No [x] N/A Vascular Access/Line/Tubes/Drains: Lines to be removed: ETT List lines, tubes, drains and insertion date: - A line (11/12) - CVC right internal jugular vein (11/12) - Solano (11/12) CT #1: Right anterior Mediastinal (11/12) CT #2: Left Anterior Mediastinal (11/12) - Ventricular pacer wires (11/12) - PIV: (11/12) - ETT (11/12) Assessed insertion site: [x] Yes [] No Choice of Analgesia/Sedation: Pain: [x] Controlled [] Uncontrolled Continuous Infusions: [x] Sedation [] Analgesia [] NMB [] None Delirium: Overall CAM-ICU: Negative CAM: [] Positive [x] Negative [] Unable to assess Restraints: [] None [x] Soft limb [] [place] mitts [] Other Prophylaxis Bundle: HOB: 30 degrees Stress ulcer ppx: [x] Yes [] Therapeutic [] Home regimen [] No, not indicated Chemical DVT ppx: [] Yes [x] No, SCDs ordered Therapy Services: OCCUPATIONAL THERAPY PROFESSOR: [] Swallow [] Cognitive Eval [] Speaking Valve [x] N/A Early Mobility: PT/OT consulted: [x]Yes [] No, d/t clinical status [] No, pt is independent Current Mobility Status: Bed-rest OBJECTIVE VITALS: Blood pressure 156/82, pulse 56, temperature 97.4 F (36.3 C), temperature source Axillary, resp. rate 13, height 1.829 m (6'), weight 90.8 kg (200 lb 3.2 oz), SpO2 100%. PHYSICAL EXAM: GENERAL: Intubated, sedated, No acute distress HEENT: PEERL, EOMI, MMM. CVC right IJ HEART: RRR, +S1+S2, No murmurs. Midline sternal wound vac LUNG: Non-Labored, Equal chest rise, no wheezes or rhonchi ABD: Soft, Non-Distended, Non-Tender EXT: Warm, no cyanosis, edema in bilateral lower extremities. PULSE: Palpable Bilateral DP Pulses MUSC: Moves all 4 Extremities NEURO: Grossly intact, no acute deficits appreciated PSYCH: Appropriate for the clinical situation SURGICAL INCISIONS - sternal incision John Birmingham MD Cardiovascular ICU/ Cardiac Surgery 11/13/23 4:57 PM documented in this encounter [facility] 11-19-2023 Hospital course Narrative Discharge Summary Name: Afsaneh Bowers Age: 63 y.o. Birthday: 1960 Admit Date: 11/13/2023 5:27 AM Discharge Date: 11/19/23 Discharge Unit: [facility] Admission Information Admitting Physician: Ani Ríos MD (John) Discharge Information Discharge Physician: Ani Ríos MD (John) Problem List Active Hospital Problems Diagnosis Aneurysm of ascending aorta Dilated aortic root Resolved Hospital Problems No resolved problems to display. Brief Summary of Hospital Course for Discharge Summary: Mr. Bowers is a 63 y.o. male who has past medical history of HTN, HLD, CAD. Patient underwent valve-sparing aortic root / ascending aorta / ebony-arch replacement on 11/13/[address] Ríos. Postoperatively, he was extubated to nasal cannula and was weaned from IV vasopressors/inotropes. He was gently diuresed with Lasix with a dry weight of 90kg. His postoperative TTE showed new decreased EF of 40-45% from preoperative EF of 60%. He was not started on GDMT for HFmrEF d/t blood pressure not tolerating metoprolol / TSERING or ARB. Of note, he had some OD visual changes with blue bar across the middle of his visual field for which opthomology was consulted. MRI brain performed with findings of two acute punctate infarctions, one in the right parietal lobe and the other in the left frontal lobe. 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 Finding is almost certainly benign per radiology. MRA of the head/neck without acute findings. Ophthalmology service reviewed imaging and signed off. Dr. Olsen recommending outpatient neurovascular follow up for right orbital venous varix/outpouching. Patient tolerated advancement of diet, and post-operative stress induced hyperglycemia was managed with insulin infusion, followed by sliding scale insulin. At time of discharge the patient was afebrile, hemodynamically stable, eating a regular diet, voiding spontaneously, having bowel movements, ambulating with wheeled walker, breathing comfortably on room air, with postoperative pain controlled on oral medication. Epicardial pacing wires, chest tubes, and solano catheter were removed without any complications. PA/LAT CXR was completed after all chest tubes were removed without evidence of pneumothorax or consequential effusion. All incisions healing appropriately. All discharge instructions and follow up information are contained within the After Visit Summary. Attempted to procure [facility] for patient, but no accepting agencies. Patient will be discharged, in stable condition, home on the following cardiac medications: Aspirin, Amiodarone, and Crestor. Metoprolol held due to hypotension. Patient instructed to monitor blood pressure multiple times day - if systolic blood pressure >140 consistently, he is to call office for further instruction. PHYSICAL EXAM: General: Alert, oriented x 3, NAD HEENT: Normocephalic. Atraumatic. PERRL Cardiac: RRR, +S1+S2, No murmur, rub, jose carlos. Pulmonary: Bibasilar rales, breathing non-labored Abd: Soft, non-distended, not ttp, active bowels sounds Extremities: Warm, no cyanosis, No LE edema, palpable bilateral DP pulse Integumentary: Incisions clean, dry and intact. No evidence of infection, dehiscence, or drainage. Neuro: Alert and oriented x 4. Moves all extremities. No acute deficits appreciated. Strength equal. Psych: Appropriate for the clinical situation Brief Summary of Consults for Discharge Summary: Date Consult Brief Summary of Aluminum Sheet Cutter Findings 11/17/23 Ophthalmology OD visual changes Brief Summary of Procedures and Imaging for Discharge Summary: Date Procedure Brief Summary of Procedure or Imaging 11/13/23 valve-sparing aortic root / ascending aorta / ebony-arch replacement /AV repair with Dr. Chilango Ríos MD Summary of last selected lab results and date obtained: Lab Results Component Value Date WBC 18.12 (H) 11/18/2023 HGB 9.9 (L) 11/18/2023 HCT 30.4 (L) 11/18/2023 PLATELET 234 11/18/2023 MCV 87.4 11/18/2023 Lab Results Component Value Date SODIUM 137 11/18/2023 POTASSIUM 4.3 11/18/2023 CHLORIDE 101 11/18/2023 CO2 25 11/18/2023 BUN 21 11/18/2023 CREATSERUM 0.81 11/18/2023 GLUCOSE 110 (H) 11/18/2023 Lab Results Component Value Date ALT 29 11/15/2023 AST 93 (H) 11/15/2023 ALKPHOS 32 11/15/2023 BILITOTAL 0.8 11/15/2023 BILIDIRECT 0.2 11/15/2023 Brief Summary of Labs for Discharge Summary: 11/16/23 TTE No prior study at this institution for comparison. S/P aortic root and arch replacement and AV repair 10/15/23. Left Ventricle: Chamber size is normal. Increased wall thickness. Concentric remodeling is present. Wall motion abnormality: Inferior wall. Inferolateral wall. Abnormal septal motion consistent with post-operative state. The ejection fraction is 43%. Ejection fraction by 3D quantification is mildly reduced (40 - 45%). Right Ventricle: Chamber size is normal. Systolic function is moderately reduced. Trileaflet aortic valve. Non-specific thickening. Leaflet mobility is normal. Mild eccentric regurgitation. No stenosis. The valve Vmax is 1.02 m/s. The aortic root (sinus level), ascending aorta and transverse aorta regions contain a prosthetic graft. 11/16 PA-lateral CXR IMPRESSION: 1. No pneumothorax. 2. Small pleural effusions with mild basilar volume loss. 3. Prominent heart without pulmonary edema. 11/17 MRI BRAIN WITH AND WITHOUT CONTRAST IMPRESSION: -Two acute punctate infarctions, one in the right parietal lobe and the other in the left frontal lobe. -Orbital examination does not demonstrate any acute abnormalities. Suspected 3 mm venous varix/outpouching on the right. Finding is almost certainly benign. 11/17 MRI ARTERIOGRAM BRAIN.NECK WITHOUT CONTRAST IMPRESSION: Normal MRA of the head Discharge Orders WALKER FOR HOME CT ANGIO CHEST (NONCORONARY) XR CHEST PA AND LATERAL 2 VIEWS AMB REFERRAL TO HOME HEALTH - INPATIENT DISCHARGE [place] AMB REFERRAL TO CARDIAC REHAB AMB REFERRAL TO NEUROLOGY DIET HEART HEALTHY - 4 GM SODIUM Activity as tolerated Surgical Precautions / Weight lifting Restrictions Driving restrictions Work restrictions Bathing/Shower Restrictions Cough and deep breath Weigh yourself Keep legs elevated at all times to prevent swelling MONITOR FLUID INTAKE Call MD at: Call MD for: Elevated Temperature ( temperature > 100.5 F (38 C)) Call MD for: Signs of Infection/Inflammation Call MD for: Incision Site Change Call MD for: Respiratory Change Changes in Mood or Sleep Pattern Call MD for: Severe Uncontrolled Pain Call MD for: Persistent Nausea or Vomiting Call MD for: Weight Gain Call MD for: Questions Regarding Medication Call 911: Dressing / Wound Care (specify) Incision Care PREPARE TO TRANSFUSE OR RED BLOOD CELLS: 4 Units Current Outpatient Meds: Medication List for when you go home START taking these medications Morning Afternoon Evening Bedtime As Needed Acetaminophen 325 MG tablet Take 2 tablets by mouth every 4 hours as needed. Commonly known as: TYLENOL Last time this was given: 650 mg on November 16, 2023 4:43 PM Aspirin 325 MG TABS Take 1 tablet by mouth daily. Last time this was given: 325 mg on November 19, 2023 9:22 AM Replaces: aspirin 81 MG CHEW chewable tablet Melatonin 3 MG TABS Take 2 tablets by mouth at bedtime as needed for Insomnia. Last time this was given: 6 mg on November 18, 2023 12:38 AM Ondansetron 4 MG ODT tablet Take 1 tablet by mouth every 8 hours as needed for Nausea / Vomiting for up to 14 days. Commonly known as: ZOFRAN-ODT Last time this was given: Ask your nurse or doctor oxyCODONE 5 MG TABS Take 1 tablet by mouth every 6 hours as needed for Moderate Pain or Severe Pain. Commonly known as: ROXICODONE For diagnoses: Postoperative pain Last time this was given: 5 mg on November 16, 2023 1:40 AM Polyethylene glycol 17 GM/SCOOP POWD powder Take 17 g by mouth 2 times daily as needed for Constipation. Commonly known as: MIRALAX Last time this was given: Ask your nurse or doctor Senna 8.6 MG CAPS Take 1 capsule by mouth 2 times daily as needed for Constipation. Last time this was given: Ask your nurse or doctor CONTINUE taking these medications Morning Afternoon Evening Bedtime As Needed Rosuvastatin 20 MG TABS Take 1 tablet by mouth daily. Commonly known as: CRESTOR Last time this was given: 20 mg on November 17, 2023 9:02 PM STOP taking these medications aspirin 81 MG CHEW chewable tablet Replaced by: Aspirin 325 MG TABS Metoprolol succinate 25 MG tablet XL Commonly known as: Toprol XL Follow-up: Other [facility] [address] [facility] [id number] Follow up in 6 week(s) You've been referred to cardiac rehab. Please call if you have any questions Chilango Welsh MD [address] [facility] [phone] Schedule an appointment as soon as possible for a visit in 2 week(s) Asaf Torres MD [address] [facility] [address] Martín Hogan PA-C [address] [facility] [phone] Schedule an appointment as soon as possible for a visit in 6 week(s) Other [facility] [address] [place] [address] Follow up This is your medical equipment supply company of choice. Upcoming Appointments (up to five)-Some appointments for Medical Center outpatient clinics or diagnostic testing locations are not displayed below Provider Department Dept Phone 12/17/2023 2:20 PM [place] [facility] Cardiovascular Imaging Lab Calin Arias [employer] [facility] [employer] [phone] 12/17/2023 3:00 PM CTS CARDIO NURSE PRACTITIONER, [facility] [employer] [facility] Calin Dugan [facility] Arrive at: Arrive to [facility] Registration Desk [phone] documented in this encounter [facility] 11-15-2023 Consult note Associated Order (s): IP CONSULT TO LIFESTYLE MEDICINE Lifestyle medicine consult received and chart reviewed. Plan for full lifestyle assessment as pt nearing discharge. Resources provided in patient instructions as well. documented in this encounter [facility] 11-15-2023 Hospital Discharge instructions ANNA Irwin - 11/15/2023 10:11 AM EDT Images from the original note were not included. Blood Pressure Monitoring Monitor blood pressure multiple times day - if systolic blood pressure >140 consistently, call office number on paperwork provided for further instruction. Prescription: Enroll in Full Plate Living Program Full Plate Living can help you create the habit of eating healthier meals. Enroll in the Full Plate Living program - a free service of [facility]. It s a small step approach that can lead to big health outcomes. Membership provides access to courses, a supportive community and to resources that will improve your health. Specifically, it helps you move toward eating enough fiber foods. Effects may include: Improved Blood Sugar Lower Cholesterol Levels Better Blood Pressure Weight Loss Increased Energy Better Sleep Improved Digestive Regularity Enroll at fullplateliving.org or scan the QR code. Resources for lifestyle management Documentaries: Live to 100: Secrets of the Blue Zones Copen over knives [employer] Website Nutritionfacts.org Library Books: Mastering Diabetes by Ronald Shanks, PhD Fiber Fueled by Bryon Frank MD Together by MD Jerica Pabon and The Blue Zones by Robert Sylvester The following attachments cannot be sent through Care Everywhere.Aortic Aneurysm Thoracic: Open Surgical Repair: Post-op ([facility])Open Heart Surgery Discharge Education ([facility]) (Pry[facility]ig)Wound Check ([facility])Sternotomy Precautions: Post-op ([facility])Pain and Pain Control ([facility]) (Prydeinig)documented in this encounter [facility] 11-13-2023 History and physical note CARDIAC SURGERY HISTORY AND PHYSICAL HPI Mr. Bowers is a 63 y.o. male with a past medical history of HTN, HLD, CAD, and knee/shoulder ortho surgery. He recently presented to [facility] with episodes of stable angina and was found to have aortic root dilation (57mm) and severe trileaflet AV AI. He was not deemed a candidate for CABG as workup revealed no vessel stenosis >60% and minimal iFR change. He presents today for repair ascending aorta aneurysm with valve sparing root repair or suspension with Dr. Chilango Ríos. Nicotine Dependence Never smoked REVIEW OF SYSTEMS: Denies chest pain, diaphoresis, syncope, fevers, chills, night sweats. All other review of systems negative, unless otherwise stated. PAST MEDICAL HISTORY Past Medical History: Diagnosis Date Arthritis CAD (coronary artery disease) Cardiac angina Essential hypertension, benign GERD (gastroesophageal reflux disease) Heart valve disease Hyperlipidemia HI (myocardial infarction) Vascular disease Past Surgical History: Procedure Laterality Date HEART CATHETERIZATION 10/22/2023 KNEE SURGERY Left SHOULDER SURGERY Left Rotator cuff FAMILY HISTORY Family History Problem Relation Age of Onset Heart Disease - Other Father SOCIAL HISTORY reports that he has never smoked. He has never been exposed to tobacco smoke. He has never used smokeless tobacco. He reports that he does not drink alcohol and does not use drugs. Social History Tobacco Use Smoking Status Never Passive exposure: Never Smokeless Tobacco Never Social History Substance and Sexual Activity Alcohol Use Never ALLERGIES No Known Allergies MEDICATIONS Current Outpatient Medications Medication Instructions aspirin 81 mg, Oral, DAILY Metoprolol succinate (TOPROL XL) 25 mg, Oral, DAILY Rosuvastatin (CRESTOR) 20 mg, Oral, DAILY PHYSICAL EXAM VITALS: Height 1.829 m (6'), weight 90.8 kg (200 lb 3.2 oz). HR 61, BP 156/82, SpO2 95% on room air WEIGHT: Wt Readings from Last 1 Encounters: 11/13/23 90.8 kg (200 lb 3.2 oz) General appearance: alert, cooperative, appears stated age Lungs: clear bilaterally Heart: regular rate and rhythm, murmur noted Abdomen: soft, rounded Extremities: no lower extremity edema. Skin: Warm and dry. No rashes or lesions noted on chest or bilateral groins Musculoskeletal: gait is coordinated and symmetrical Pulses: 1+ DP/PT and radial, symmetric Neurologic: no gross focal deficits noted. Psych: appropriate mood and affect for clinical situation DIAGNOSTIC RESULTS/PROCEDURES Imaging CT Aneurysm Study 10/20/23 IMPRESSION: 1. Aortic root dilation, measuring up to 57 mm. There is also enlargement of the ascending thoracic aorta, measuring up to 48 mm at its midpoint. Please see above for a vessel by vessel description. 2. Indeterminate exophytic left lower pole renal lesion. Recommend nonemergent renal protocol CT or MRI for further evaluation. 3. Inferior right upper lobe pulmonary nodule measuring up to 6 mm. Per Fleischner criteria, recommend CT follow-up at 6-12 months. 4. Left adrenal nodule within average density of <0 on noncontrast imaging, likely representing an adrenal adenoma. [facility] 10/22/23 Coronary Angiogram (limited to further assess below) and Instantaneous Wave-Free Ratio (iFR): 1) There is a 60% stenosis in the proximal left anterior descending artery with an iFR of 0.98 representing a non-significant physiologic stenosis. 2) There is a 40% stenosis in the first diagonal branch (wire placed in the larger inferior branch after the bifurcation) with an iFR of 0.99 representing a non-significant physiologic stenosis. 3) There is a 20% stenosis in the proximal left circumflex artery. 4) Please refer to diagnostic cardiac catheterization 10/19/23 for further details on coronary anatomy. Echo 10/19/23 The estimated ejection fraction is 65 %. No evidence for diastolic dysfunction. Trivial mitral valve insufficiency. Mild tricuspid valve insufficiency. Severe (4+) aortic valve insufficiency. Severely dilated aortic root. Severely dilated ascending aorta. Aortic Valve Trisinus/trileaflet aortic valve. There is no aortic stenosis. Severe (4+) aortic valve insufficiency. PFTs 10/22/23 FEV1 3.15 % pred [address] íRos Dental Clearance completed 10/29/2023 Labs: Lab Results Component Value Date WBC 8.20 10/23/2023 HGB 14.5 10/23/2023 PLATELET 265 10/23/2023 PTT 105.6 (H) 10/22/2023 INR 1.1 10/20/2023 SODIUM 138 10/23/2023 POTASSIUM 4.3 10/23/2023 CHLORIDE 108 10/23/2023 CO2 22 10/23/2023 BUN 19 10/23/2023 CREATSERUM 0.99 10/23/2023 CALCIUM 9.1 10/29/2023 MAGNESIUM 1.8 10/23/2023 PHOSPHORUS 3.7 10/29/2023 AST 26 10/21/2023 ALKPHOS 37 10/21/2023 BILITOTAL 0.7 10/21/2023 BILIDIRECT 0.1 10/21/2023 ALBUMIN 3.3 (L) 10/21/2023 PREALBUMIN 24 10/22/2023 HGBA1C 5.3 10/21/2023 No results found for: CPK, TROP Lab Results Component Value Date BNP 143 (H) 10/20/2023 COVID Screening (transplants only) not indicated ASSESSMENT AND PLAN Pre-op Diagnoses: Aneurysm, ascending aorta [I71.21] Procedure(s): REPAIR ASCENDING AORTA ANEURYSM W/ VALVE-SPARING ROOT REPAIR OR SUSPENSION Surgeon(s): Surgeons and Role: * Ani Ríos MD (John) - Primary Pre-operative Problems: CAD -Continue ASA, statin, BB when appropriate HLD -Continue statin when appropriate HTN -Continue BB when appropriate Aortic root dilation/AI -Planned repair ascending aorta aneurysm with valve sparing root repair or suspension Pre-operative Medications: Pre-operative Beta- Blockade: Medication: Pre-operative Beta Jaime ordered/administered day of surgery, 11/13/2023, Time taken: 0345 Pre-operative aspirin: Dose: Aspirin 81mg daily, 11/13/2023, Time Taken: 0345 Pre-operative Statin: Pre-operative Statin: Patient is currently taking a Statin medication: Yes Rosuvastatin Nickel Allergy: NO Pre-operative Anemia screening: Complete: No, Hgb is 14.5. No indication for anemia workup Lab Results Component Value Date HGB 14.5 10/23/2023 Anticoagulation plan: N/A- patient is not on IV anticoagulant Antibiotic Plan: MRSA Screen: negative Staph Aureus: negative Nasal Mupirocin indicated: no Antibiotics ordered: Pre-op Antibiotics Vancomycin + Cefazolin Bull Pathak, MACIEL-RECYCLING OPERATOR 11/13/2023 documented in this encounter [facility] 10-23-2023 Plan of care note Patient received AVS instructions and RN reviewed along with medication list provided by physician @ bedside. Patient denies any questions or concerns. Peripheral IV & telemetry discontinued per physician order. Patient tolerated procedure without difficulty. Patient denies having any medications secured in medication room upon admission. Patient will be discharged home via wheelchair with belongings and copy of discharge instructions accompanied by hospital staff once patient is dressed & is ready to leave hospital. Patient without signs or symptoms of distress noted. [facility] 10-23-2023 History of Present illness Narrative Care Management Discharge Note Transport Request Mode of Transfer: Private Vehicle Patient medically stable for discharge per physician/medical team. 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 Discharge to home. Pt to follow-up with providers. SAAD Garcia BSN, RN, [facility] Clinical Flash Welding Machine Operator Please note that I am a float casework specialist and may not cover the same service every day. Please call the main Case Management office at [phone] for up-to-date coverage. Acute Physical Therapy Evaluation Prior to Admission [facility] score(s): PRIOR LEVEL AM-PAC Mobility Raw Score: 24 Current AM-PAC score(s): CURRENT AM-PAC Mobility Raw Score: 22 Based on the above AM-PAC score(s) and PT clinical judgment, patient is a good candidate for discharge to Home Barriers to discharge home: (None) Mobility equipment available at home: none used ADL equipment available at home: none Equipment needed for discharge: none Current therapy frequency recommendation in acute: Therapy Frequency: no therapy warranted Activity Recommendations for outside of rehab session: Ambulate x3 daily Precautions and Weightbearing Status: Existing Precautions/Restrictions: cardiac Telemetry Patient Safety Communication Prior to Visit: Nursing Subjective: Pt awake, alert and agreeable. Pt reports that he feels goo this date Pain: General Pain Documentation (Adult, OB, Peds) Presence of Pain: denies pain/discomfort Presence of Pain Score (Auto-calculated): 0 Home Setting Residence: House Lives With: alone First floor setup: bedroom, walk-in shower Number of stairs to enter home: 5 Number of stairs in home: 12 Stair Railings at Home: entry - with rail Mobility Equipment Available: none used ADL Equipment Available: none Home Environment Details: Pt denies any falls in the past 3 months Previous Level of Function Prior level ADL Overview: Independent with all ADLs Dominant Hand: Right Bed Mobility/Transfers: independent Ambulation Skills: independent Assistive Device: none used Level of Ambulation: community 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 No abnormal vitals changes occurred in response to activity. Pt's vitals stable at end of session. O2 Device: room air Cognition Overall Cognitive Status: Within Functional Limits Arousal/Alertness: Appropriate responses to stimuli Orientation Level: Oriented X4 Following Commands: Follows all commands and directions without difficulty Safety Judgment: Good awareness of safety precautions Awareness of Errors: Good awareness of errors made Deficits: Fully aware of deficits Extremity Assessments: RLE Assessment RLE Assessment: Within Functional Limits LLE Assessment LLE Assessment: Within Functional Limits Sensation Overall Sensation: Intact Mobility Assessment: Supine to Sit Mobility Bremer Level: Supine->Sit: [facility] Bed Features/Set-up: Supine->Sit: Head of bed elevated, Flat Skilled Rationale: Hand placement, Verbal cues Balance: Sitting Balance Static Sitting-Level of Assistance: Independent Dynamic Sitting-Level of Assistance: Independent Standing Balance Static Standing-Level of Assistance: Independent Dynamic Standing-Level of Assistance: Independent Transfer Assessment: Sit to Stand Transfer Bremer Level: Sit->Stand: independent Skilled Rationale: Hand placement, Verbal cues, Technique of activity Stand to Sit Transfer Bremer Level: Stand->Sit: independent Skilled Rationale: Hand placement, Verbal cues, Technique of activity, Controlled descent for sitting Gait/Functional Mobility: Gait Assessment Bremer Level: Gait: supervision Ambulation Distance (Feet): (300) Gait Deviations Identified: decreased jennifer, decreased gait speed, decreased heel strike Gait Skilled Rationale: verbal, upright posture Skilled Intervention/Details - Gait: Cues for breathing control, activity pacing. foot placement Stairs: Stairs Assessment Bremer Level: Stair Negotiation: not tested Outcome Score(s): Short Physical Performance Battery Test Balance Points Izcf-va-tptc stand 0-unable/less than 10 seconds 1-held for 10 seconds 1 Semi-tandem stand 0 -unable/less than 10 seconds 1-held for 10 seconds 1 Tandem stand 0-unable/less than 3 seconds 1-held for 3 to 9.99 seconds 2-held for 10 seconds 2 Gait speed 4 meter walk (13 feet) best of 2 trials 1-more than 8.70 seconds 2-6.21 seconds to 8.70 seconds 3-4.82 seconds to 6.20 seconds 4-less than 4.82 seconds 4 Chair stand test (5 times) 0-unable/use arms/>60 seconds 1-equal or more than 16.70 seconds 2-13.70 seconds to 16.69 seconds 3-11.20 seconds to 13.69 seconds 4- equal or less than 11.9 seconds 4 TOTAL SCORE 12/12 COPD < 10 indicates one or more mobility limitations1 Hospitalized older adults Hospital discharge score of 0-4 had a greater risk of rehospitalization or .2 Score of < or = 7 had a significant increased risk of rehospitalization or .2 Community dwelling older adults Score of < or = to 10 at baseline had significantly higher odds of mobility disability at follow up.3 1 Eduarda Dasilva et all 2014 2 Sharifa 2010 3Neyda et morgan 2008 CURRENT [facility] Basic Mobility Inpatient Short Form Turning over in bed: 4 - No Assistance Sitting/standing from chair: 4 - No Assistance Moving from lying on back to sittin - No Assistance Moving to and from bed to chair: 4 - No Assistance Walk in hospital room: 3 - A Little Assistance Climbing 3-5 steps with a railin - A Little Assistance CURRENT [facility] Mobility Raw Score: 22 CURRENT [facility] Mobility Functional Limitation/Modifier: 20.91% Currently Impaired in Basic Mobility - CJ Assessment & Plan: Patient was admitted for Chest pain [R07.9] and seen for therapy evaluation related to decreased exercise tolerance. Exam findings include impairments in: (None). These impairments contribute to functional limitations including (None). No therapy needs. PT will follow as medically appropriate. Current clinical presentation is Stable - unchanging or predictable (Low). Patient history factors impacting Plan Of Care include None. Patient will benefit from skilled physical therapy to address these impairments, functional limitations, and participation restrictions and has other (see comments) (No therapy needs) rehab potential to achieve therapy goals. Planned Therapy Interventions: (None) Patient Instruction/Education this session: Learners: Patient Education provided: Balance training, Bed mobility, Breathing exercises, Functional transfers, Fall precautions, Home exercise program Teaching method: Verbal Education/Instruction Learner response: Applies knowledge Learning preferences: Auditory Learning considerations: No barriers/ready to learn Patient Instruction/Education comments: PT role, session goals, sternal precautions, HEP Plan for next session: No therapy warrented, PT will discharge orders at this time No therapy goals at this time. Pt is independent PT treatment consisted of the following to progress towards the above goal(s): PT Evaluation and Treatment Time PT Evaluation (Low) Time Entry: 17 Evaluating Therapist: Francine Holland PT Additional Details: PT Co-Eval/Treatment Information Co-evaluation/co-treatment performed?: Yes, simultaneous billable skilled care was necessary due to medical complexity and functional deficits Other discipline: OT Rationale for need to co-eval/treat: postural control Co-treatment goal focus: mobility, balance, endurance Evaluation Complexity Components History: Low (No personal factors and/or comorbidities) Body Systems Review: Low (Addressing 1-2 elements) Clinical Presentation: Stable - unchanging or predictable (Low) Clinical Decision Making: Low Time In: 0852 Time Out: 0909 Total Visit Time: 17 minutes Total Treatment Time (skilled, billable minutes): 17 minutes PPE used during patient interaction: facemask, gloves Patient location at end of session: RN aware, lines intact, chair Alarms on at end of session: none, RN aware, none altered Needs in reach. Upon discontinuation of Acute Care Physical Therapy Services or patient discharge from the hospital this note represents the current Physical Therapy Discharge Summary. Acute Occupational Therapy Evaluation Prior to Admission AM-PAC Score: PRIOR LEVEL AM-PAC Activity Raw Score: 24 Current AM-PAC score(s): CURRENT AM-PAC Activity Raw Score: 24 Based on the above AM-PAC score(s) and OT clinical judgment, discharge destination recommendation is: Home Pt completed lower body dressing and functional mobility with independence. Mobility equipment available at home: none used ADL equipment available at home: shower bench (built in) Equipment recommendations for discharge: Current therapy frequency recommendation(s) in acute: no therapy warranted Precautions and Weightbearing Status: OT Existing Precautions/Restrictions: cardiac Telemetry Patient Safety Communication Prior to Visit: Nursing Subjective: Pt alert and agreeable to therapy. Pt asks when do you think I'll be able to run again? Pain: General Pain Documentation (Adult, OB, Peds) Presence of Pain: denies pain/discomfort Presence of Pain Score (Auto-calculated): 0 Home Setting Residence: House Lives With: alone First floor setup: bedroom, walk-in shower Number of stairs to enter home: 5 Number of stairs in home: 12 Stair Railings at Home: entry - with rail Mobility Equipment Available: none used ADL Equipment Available: shower bench (built in) Home Environment Details: Reports family can assist as needed Previous Level of Function Prior level ADL Overview: Independent with all ADLs Dominant Hand: Right Bed Mobility/Transfers: independent Ambulation Skills: independent Assistive Device: none used Level of Ambulation: community 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 O2 Device: room air Vision Screen Currently wearing corrective lenses: Reading only Visual Impairments Observed?: No Speech Speech: no gross deficits noted Successful Methods (Communication Strategies): verbal speech Hearing Hearing: no gross deficits noted Cognition Overall Cognitive Status: Within Functional Limits Arousal/Alertness: Appropriate responses to stimuli Orientation Level: Oriented X4 Following Commands: Follows all commands and directions without difficulty Safety Judgment: Good awareness of safety precautions Awareness of Errors: Good awareness of errors made Deficits: Fully aware of deficits Attention Span: Appears intact Memory: Appears intact Problem Solving: Able to problem solve independently ADLs: ADL Anticipated Performance (ADLs not directly observed this session): Eating, Grooming, Bathing, UE Dressing, Toileting Eating Assistance: Independent Grooming Assistance: Independent Bathing Assistance: Independent UE Dressing Assistance: Independent LE Dressing Assistance: Independent LE Dressing Location: edge of bed LE Dressing Intervention/Details: Pt doffed and donned bilat socks while seated EOB by bending at hip to reach LEs in 20.17 seconds Toilet Assistance: Independent Extremity Assessments: Hand Nursery Nurse Strength Right Nursery Nurse Strength (lbs): 87.0 Left Nursery Nurse Strength (lbs): 76.8 RUE Assessment RUE Assessment: Within Functional Limits Right UE Assessment Details: 01/05 LUE Assessment LUE Assessment: Within Functional Limits Left UE Assessment Details: 01/05 Balance: Sitting Balance Static Sitting-Level of Assistance: Independent Dynamic Sitting-Level of Assistance: Independent Standing Balance Static Standing-Level of Assistance: Independent Dynamic Standing-Level of Assistance: Independent Neuro: Sensation Overall Sensation: Intact Sensation Comments: denies n/t Skin and Edema: Skin Integrity Skin Integrity Description: WFL Edema Edema: none noted Mobility Assessment: Supine to Sit Mobility Bremer Level: Supine->Sit: independent Skilled Rationale: Verbal cues, Sequencing Skilled Intervention/Details: Supine->Sit: Towards L side Transfer Assessment: Sit to Stand Transfer Bremer Level: Sit->Stand: independent Skilled Rationale: Verbal cues Skilled Intervention/Details: Sit->Stand: from EOB x1 Stand to Sit Transfer Bremer Level: Stand->Sit: independent Skilled Rationale: Cues for increased safety Skilled Intervention/Details: Stand->Sit: to recliner Functional Mobility: Functional Mobility Bremer Level: Functional Mobility/Gait: independent Functional Mobility Skilled Rationale: Verbal cues Skilled Intervention/Details - Functional Mobility/Gait: No LOB noted Outcome Score(s): CURRENT [facility] Daily Activity Inpatient Short Form Putting on/Taking Off Lower Body Clothin - No Assistance Bathin - No Assistance Toiletin - No Assistance Putting on/Taking Off Upper Body Clothin - No Assistance Groomin - No Assistance Eatin - No Assistance CURRENT [facility] Activity Raw Score: 24 CURRENT [facility] Activity Functional Limitation/Modifier: 0.00% Currently Impaired in Daily Activity - CH Interventions: Therapist educated pt on sternal precautions if pt has surgery during inpatient hospital stay. Therapist discussed goals of care after surgery regarding therapy, including functional mobility, strengthening, ADLs while adhering to sternal precautions (including a full shower if discharging home). Pre-op testing, including strength/ROM/mobility/fine motor coordination/ADLs completed and assessed, and will continue to assess post-op. Pt verbalized understanding of all education provided. Assessment & Plan: Patient was admitted for OHS work-up and seen for therapy evaluation related to activity tolerance which affects independence with self-care tasks. Pt is independent with ADLs, IADLs and functional mobility at this time and is safe to discharge home. Pt has no further OT needs and is discharged from OT services this date. Please re-consult if any changes arise. Thank you. Patient Instruction/Education this session: Learners: Patient Education provided: Role of this discipline Teaching method: Verbal Education/Instruction Learner response: Applies knowledge Learning preferences: Auditory Learning considerations: No barriers/ready to learn Plan for next session: discharge from acute OT serices Acute OT Goals Notes from 10/23/2023 1:32 AM through 10/23/2023 1:32 PM Pt will complete lower body dressing with independence- Completed. OT treatment consisted of the following to work and progress towards the above goal(s): OT Evaluation and Treatment Time OT Evaluation (Low) Time Entry: 20 Evaluating Therapist: Malorie Alvarado OT Additional Details: OT Co-Eval/Treatment Information Co-evaluation/co-treatment performed?: Yes, simultaneous billable skilled care was necessary due to medical complexity and functional deficits Other discipline: PT Rationale for need to co-eval/treat: coordination issues OT Evaluation Complexity Occupational Profile and Client History: Low - brief history Assessment of Occupational Performance: Low (1-3 performance deficits) Clinical Decision/Performance Deficits: Low (problem-focused assessments w/limited treatment options) Time In: 08 Time Out: 0913 Total Visit Time: 20 minutes Total Treatment Time (skilled, billable minutes): 20 minutes PPE used during patient interaction: facemask, gloves Patient location at end of session: chair Alarms on at end of session: none Needs in reach. Upon discontinuation of Acute Care Occupational Therapy Services or patient discharge from the hospital this note represents the current Occupational Therapy Discharge Summary. Discharge Planning Patient Assessment Admission Assessment Patient Assessment Completed: Initial Anticipated discharge disposition: Home Reason for Admission: Left shoulder pain, CAD Is the patient able to participate in the assessment?: Yes Information source: Patient, Child(jv), Review of Medical Record Information Source Name/Contact: Afsaneh Bowers; son, Napoleon Bowers also present Demographics Verified and Updated: Yes Has the patient been admitted to any hospital in the last 30 days?: No Advanced Care Planning Has the patient completed Advance Directives?: Completed, Not Available in Medical Record Copy of Advance Directives was requested?: Yes Advance Directives Requested From: patient Legal Next of Kin Does the patient have a Guardian?: No Spouse: No Adult Child(jv), List All Adult Children: Yes Name and Contact information: Ritchie Bowers, Would you like to add additional adult children?: Yes Name and Contact information: Napoleon Kishore, Reviewed and Updated in Demographics? : Yes Outpatient Providers Does patient have a primary care physician? : Yes When was the patient's last PCP visit?: < 30 days Does the patient follow any specialists?: Yes Reviewed and updated Care Team?: Yes Patient Care Team: Chilango Welsh MD as PCP - General (Family Medicine) Asaf Torres MD as PCP - Referring 1 (Orthopaedic Surgery) Environment/Caregivers Is the patient from a facility or skilled nursing?: No Patient lives with: Alone Living Environment: House How many steps does the patient have to navigate to enter or inside the home? : 4 Does the patient have a first floor set-up with bed and bathroom?: Yes Patient Caregiving Responsibilities: Self Patient-identified caregiver/support network: Family, Friends Who does the patient identify as a teachable caregiver(s)?: Child(jv) - Independent Services Does the patient use a home health or hospice agency?: No Current with dialysis?: (n/a) Does the patient use any community programs or services?: No Does patient use DME? : none Does the patient use oxygen?: No Does patient use medical supplies? : none Anticipated Changes Related to Illness/Injury? : No Initial ADLs Prior to Arrival What is the patient's baseline physical functioning prior to this acute illness?: independent What is the patient's baseline cognitive functioning prior to this acute illness?: independent Is the patient's baseline functioning changed by this acute illness? : No Concerns with patient being able to care for themselves at home? : No Are there therapy or specialists consults?: Yes Select consult type: PT, OT Does the patient's home require any home modifications for discharge? : No CM to recommend therapy or other consults? : No Medication Management Does the patient have prescription insurance coverage? : Yes Is the patient on Anticoagulation? : No [id number] [place] [address] [address] [facility] [address] [facility] [address] [employer] Does the patient or labor service representative express financial concerns? : No Employed?: Yes Coping/Stress Concerns about patient s coping and stress?: No Concerns about patient s caregiver s coping and stress?: No Initial Discharge Planning Anticipated discharge disposition: Home Transportation Available for Discharge: Family or Friend Anticipated DME: none Anticipated Services at Discharge: Outpatient follow up Patient Assessment Completed: Initial Expected Discharge Date: 10/24/2023 Discharge Planning Summary Pt admitted for left shoulder pain; CAD. Pt active prior to admission. Anticipate discharge to home. Case Management Plan Role of Clinical Flash Welding Machine Operator explained while admitted to [facility] 2. PCP/Specialist/pharmacy information updated as needed 3. Patient demographic/address/emergency contact information verified 4. Clinical Flash Welding Machine Operator will continue to follow with medical team to coordinate discharge planning. SAAD Garcia BSN, RN, [facility] Clinical Flash Welding Machine Operator Please note that I am a float casework specialist and may not cover the same service every day. Please call the main Case Management office at [phone] for up-to-date coverage. CHF/ACS/HRT1 DAILY PROGRESS NOTE IDENTIFYING INFORMATION PATIENT: Afsaneh Bowers ADMIT DATE: 10/20/2023 TIME OF EVALUATION: 10/22/2023 12:58 PM HOSPITAL STAY: LOS: 2 days SUBJECTIVE/INTERVAL HISTORY Afsaneh Bowres's events from the last 12-24 hours were reviewed. NAEO.No new chest pain, palpitations, or SOB. Plan for today: - Cath LCx and LAD today for IFR (10/22) - Plan for aortic root repair this week - Increase Rosuvastatin to 20mg daily ASSESSMENT AND PLAN Afsaneh Bowers is a 63 y.o. male with a history of newly diagnosed CAD who presents with chest pain, positive enzymes, severe CAD. NSTEMI; stable vs. unstable angina CAD Patient presents with classic symptoms of stable angina with chest pain on exertion, which resolved at rest and possible progression into unstable angina with the worsening of intensity of the pain versus NSTEMI. His risk factors include age, family history- he is otherwise very active at baseline and has no other medical conditions. He was started on heparin drip, underwent Brilinta and ASA load at OSH ED and underwent LHC, which revealed dilated aortic root and therefore intervention was deferred until he was transferred to [facility]. - Cardiac surgery c/s - Evaluation for CABG - Obtain LHC and TTE report from OSH - Heparin: on infusion (continue for 48 hour total) - ASA: s/p 325mg load; continue 81mg daily - Antiplatelet: none - Not having chest pain - Beta blockade: Lopressor 12.5mg BID. - ACEi / ARB / Entresto: None. - Start within 24 hours of STEMI if patient is able to tolerate or hold ACEi/ARB for possible cath - Statin: Rosuvastatin 20mg daily - ICD / IMPRESS ASSOCIATE: None - Check HgbA1c and lipid panel - Maintain O2 sats >90, monitor on tele while admitted - Consider ACS educator and cardiac rehab consultation Dilated aortic root Found incidentally on LHC done above. Patient has no history of heart murmur, no history of hypertension or other valvular disease. Unclear chronicity. - Call in AM to obtain TTE report - Cardiac surgery c/s - good candidate - started recommendations for surgery work-up. - CTA Chest (10/20) - Aortic root dilation, measuring up to 57 mm, w/ enlargement of the ascending thoracic aorta, measuring up to 48 mm at its midpoint. Incidental Lesions Indeterminate exophytic left lower pole renal lesion, as well as an inferior right upper lobe pulmonary nodule measuring up to [address] C/A/P during aortic root work-up. MRI A/P to further evaluate the renal lesion. CT Chest in 6 months to further eval the pulmonary nodule. - MRI A/P (10/21) - The left lower pole renal lesion corresponds to a hemorrhagic/proteinaceous cyst. No suspicious renal masses. FEN/GI: DIET NPO with meds Ppx: Heparin gtt Dispo: Pending Code Status: Full Code Plan was discussed on rounds with the team. Shaun Orozco MD Emergency Medicine, PGY1 MEDICATIONS SCHEDULED: aspirin chewable tablet 81 mg, 81 mg, Daily Metoprolol (LOPRESSOR) tablet 12.5 mg, 12.5 mg, Q12H [START ON 10/23/2023] Rosuvastatin (CRESTOR) tablet 20 mg, 20 mg, Daily FLUIDS/DRIPS: heparin Stopped (10/22/23 1153) PRNs: Acetaminophen, 650 mg, Q6H PRN alum/mag hydrox.-simethicone, 30 mL, Q6H PRN fentaNYL, , PRN guaiFENesin, 400 mg, Q6H PRN Heparin, , PRN Lidocaine, , PRN Melatonin, 6 mg, QHS PRN midazolam, , PRN Ondansetron 4mg/2ml, 4 mg, Q6H PRN Or Ondansetron, 4 mg, Q6H PRN Polyethylene glycol, 17 g, Daily PRN Promethazine HCl, 25 mg, Q6H PRN Or Promethazine, 25 mg, Q6H PRN Sodium chloride 0.9%, 250 mL, PRN ALLERGIES: He has no allergies on file. OBJECTIVE FINDINGS Vital Signs (24hrs): Temp: [97.5 F (36.4 C)-97.7 F (36.5 C)] 97.7 F (36.5 C) Pulse (Heart Rate): [48-64] 50 Resp Rate: [15-19] 18 BP: (101-118)/(56-66) 116/63 O2 Sat (%): [95 %-98 %] 96 % Weight: [89 kg (196 lb 3.4 oz)] 89 kg (196 lb 3.4 oz) Hemodynamic/Invasive Device Data (24 hrs): Pulmonary/Cardiac Hemodynamics Pulse (Heart Rate): 50 Neuro ICP/CPP Monitoring MAP (mmHg): 85 mmHg Neuro ICP/CPP Monitoring 2 MAP (mmHg): 85 mmHg Ventilation/Oxygen Therapy (24hrs): Oxygen Therapy O2 Sat (%): 96 % O2 Device: room air Lines/Drains/Airways/Wounds: Patient Lines/Drains/Airways Status Active Lines, Drains, Airways, & Wound Overview Name Placement date Placement time Site Days Peripheral IV Line - Single Lumen 10/20/23 0150 median vein (underside of arm), left 18 gauge 10/20/23 0150 -- 2 Peripheral IV Line - Single Lumen 02/17/24 0150 forearm, posterior, left 20 gauge 10/20/23 0150 -- 2 Wound Sheath Site 10/20/23149 Anterior;Distal;Lower;Right Arm 10/20/23149 Arm 2 Sheath (CV/NV Access Device) 10/22/23 122 Arterial 6 Fr 10 cm Label 1 10/22/23 1224 -- less than 1 Fluid Management (24hrs): -Intake/Output last 3 shifts: I/O last 3 completed shifts: In: 1335.9 [P.O.:1030; I.V.:305.9] Out: 350 [Urine:350] Physical Examination: Physical Exam Vitals and nursing note reviewed. Constitutional: Appearance: Normal appearance. HENT: Head: Normocephalic and atraumatic. Nose: Nose normal. Eyes: Extraocular Movements: Extraocular movements intact. Cardiovascular: Rate and Rhythm: Normal rate and regular rhythm. Pulmonary: Effort: Pulmonary effort is normal. Breath sounds: Normal breath sounds. Abdominal: General: Abdomen is flat. Musculoskeletal: General: Normal range of motion. Cervical back: Normal range of motion. Skin: General: Skin is warm. Neurological: General: No focal deficit present. Mental Status: He is alert and oriented to person, place, and time. Psychiatric: Behavior: Behavior normal. DIAGNOSTIC RESULTS/PROCEDURES Labs-ABGs Labs-CBC WBC/Hgb/Hct/Plts: 9.29/15.1/45.0/274 (10/22 201) Labs-Chem 7(PMC) Bun/Creat/Cl/CO2/Glucose: 23/0.88/105/23/112 (10/22 201) Na/K+/Phos/Mg/Ca: 137/4.1/--/1.9/-- (10/22 201) Labs-Coags Ptt/Pt/Inr: 105.6/--/-- (10/22 1040) Additional Labs Lab Results Component Value Date BNP 143 (H) 10/20/2023 No results found for: TROP Lab Results Component Value Date CHOLESTEROL 105 10/21/2023 TRIG 45 10/21/2023 HDL 35 (L) 10/21/2023 Imaging/Radiological Studies: MRI ABDOMEN WITH AND WITHOUT CONTRAST Final Result IMPRESSION: 1. The left lower pole renal lesion corresponds to a hemorrhagic/proteinaceous cyst. No suspicious renal masses. 2. The left adrenal nodule demonstrates features consistent with a benign, lipid rich adenoma. ANEURYSM STUDY WITH AND WITHOUT CONTRAST CHEST/ABDOMEN/PELVIS Preliminary Result IMPRESSION: 1. Aortic root dilation, measuring up to 57 mm. There is also enlargement of the ascending thoracic aorta, measuring up to 48 mm at its midpoint. Please see above for a vessel by vessel description. 2. Indeterminate exophytic left lower pole renal lesion. Recommend nonemergent renal protocol CT or MRI for further evaluation. 3. Inferior right upper lobe pulmonary nodule measuring up to 6 mm. Per Fleischner criteria, recommend CT follow-up at 6-12 months. 4. Left adrenal nodule within average density of <0 on noncontrast imaging, likely representing an adrenal adenoma. This is a preliminary report. Final dictation pending 3-D reformats. Consults/Procedures: IP CONSULT TO PHYSICAL THERAPY IP CONSULT TO OCCUPATIONAL THERAPY IP CONSULT TO SURGERY - CARDIAC Associated attestation - Emilee Galvan MD - 10/22/2023 5:06 PM EST Afsaneh Bowers was seen and evaluated independently by me on 10/22/23. I discussed my findings and the therapeutic plan with the resident/fellow. I oversaw the plan of care developed by the resident or advertising sales representative and I agree with the resident s/fellow s history, physical examination, and medical decisions as outlined in the linked note Emilee Galvan MD Recording Studio Setup Worker, Division of Cardiovascular Medicine [facility] 10/22/23 Acute Physical Therapy Evaluation and Discharge Prior to Admission AMPAC score(s): PRIOR LEVEL AM-PAC Mobility Raw Score: 24 Current AM-PAC score(s): CURRENT AM-PAC Mobility Raw Score: 24 Based on the above AM-PAC score(s) and PT clinical judgment, patient is a good candidate for discharge to Home Barriers to discharge home: None Mobility equipment available at home: 2 wheeled walker ADL equipment available at home: none Equipment needed for discharge: none Current therapy frequency recommendation in acute: Therapy Frequency: no therapy warranted Activity Recommendations for outside of rehab session: Walk in hallway 3x/day Precautions and Weightbearing Status: Existing Precautions/Restrictions: cardiac Telemetry Patient Safety Communication Prior to Visit: Nursing Subjective: Pt highly pleasant and agreeable to participate in therapy Pain: General Pain Documentation (Adult, OB, Peds) Presence of Pain: denies pain/discomfort Presence of Pain Score (Auto-calculated): 0 Home Setting Residence: House Lives With: alone First floor setup: bedroom, walk-in shower Number of stairs to enter home: 5 Number of stairs in home: 12 Stair Railings at Home: entry - present on right side (ascending) Mobility Equipment Available: 2 wheeled walker ADL Equipment Available: none Home Environment Details: Pt denies any falls in the past 3 months Previous Level of Function Prior level ADL Overview: Independent with all ADLs Dominant Hand: Right Bed Mobility/Transfers: independent Ambulation Skills: independent Assistive Device: none used Level of Ambulation: community Prior Level of Function Details: 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, 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 Objective/Observation: Vitals/Vitals Responses to Treatment: Heart rate: 67 bpm Blood pressure: 108/58 mmHg (MAP: 75) Cognition Overall Cognitive Status: Within Functional Limits Arousal/Alertness: Appropriate responses to stimuli Orientation Level: Oriented X4 Following Commands: Follows all commands and directions without difficulty Safety Judgment: Good awareness of safety precautions Cognition Comments: Pleasant and cooperative, agreeable to participate in therapy Vision Screen Currently wearing corrective lenses: Reading only Speech Speech: no gross deficits noted Successful Methods (Communication Strategies): verbal speech Hearing Hearing: no gross deficits noted Extremity Assessments: RUE Assessment RUE Assessment: Within Functional Limits LUE Assessment LUE Assessment: Within Functional Limits RLE Assessment RLE Assessment: Within Functional Limits LLE Assessment LLE Assessment: Within Functional Limits Sensation Overall Sensation: Intact Proprioception Proprioception: intact Edema Edema: none noted Mobility Assessment: Supine to Sit Mobility Bremer Level: Supine->Sit: not tested Sit to Supine Mobility Bremer Level: Sit->Supine: not tested Balance: Sitting Balance Static Sitting-Level of Assistance: Independent Dynamic Sitting-Level of Assistance: Independent Standing Balance Static Standing-Level of Assistance: Independent Dynamic Standing-Level of Assistance: Independent Transfer Assessment: Sit to Stand Transfer Bremer Level: Sit->Stand: independent Stand to Sit Transfer Bremer Level: Stand->Sit: independent Gait/Functional Mobility: Gait Assessment Bremer Level: Gait: independent Ambulation Distance (Feet): 400 Skilled Intervention/Details - Gait: Pt remained steady throughout with no LOBs and able to maintain straight path. Pt denied chest pain and SOB Stairs: Stairs Assessment Bremer Level: Stair Negotiation: not tested Outcome Score(s): Short Physical Performance Battery Test Balance Points [id number] stand 0-unable/less than 10 seconds 1-held for 10 seconds 1 Semi-tandem stand 0 -unable/less than 10 seconds 1-held for 10 seconds 1 Tandem stand 0-unable/less than 3 seconds 1-held for 3 to 9.99 seconds 2-held for 10 seconds 2 Gait speed 4 meter walk (13 feet) best of 2 trials 1-more than 8.70 seconds 2-6.21 seconds to 8.70 seconds 3-4.82 seconds to 6.20 seconds 4-less than 4.82 seconds 4 (3.9 seconds) Chair stand test (5 times) 0-unable/use arms/>60 seconds 1-equal or more than 16.70 seconds 2-13.70 seconds to 16.69 seconds 3-11.20 seconds to 13.69 seconds 4- equal or less than 11.9 seconds 2 (14 seconds) TOTAL SCORE 10 /12 COPD < 10 indicates one or more mobility limitations1 Hospitalized older adults Hospital discharge score of 0-4 had a greater risk of rehospitalization or .2 Score of < or = 7 had a significant increased risk of rehospitalization or .2 Community dwelling older adults Score of < or = to 10 at baseline had significantly higher odds of mobility disability at follow up.3 1BerWanda R, Anabel-Eric F, Carlos murphy E, Kavita murphy G, Ana sánchez-Ana sánchez LM, S Dolores VALLE. The Short Physical Performance Battery is a discriminative tool for identifying patients with COPD at risk of disability. Int J Chron Obstruct Pulmon Dis. 2015;10(1):0500-7160 2SBeckie Valverde, Bronwyn Davis, Lupillo Zelaya, Jade Colin, George Carr, Bg Amanda, Predictive Value of the Short Physical Performance Battery Following Hospitalization in Older Patients, The Journals of Gerontology: Series A, Volume 66A, Issue , September 2010, Pages 89-96 Shayy Parsons, Alfonzo Fernández, Kartik Mittal, Brooks Parra, Lisa Reina, Bg Bowden, Use of the Short Physical Performance Battery Score to Predict Loss of Ability to Walk 400 Meters: Analysis From the InCHIANTI Study, The Journals of Gerontology: Series A, Volume 64A, Issue 2, October 2008, Pages 223-229 CURRENT -[facility] Basic Mobility Inpatient Short Form Turning over in bed: 4 - No Assistance Sitting/standing from chair: 4 - No Assistance Moving from lying on back to sittin - No Assistance Moving to and from bed to chair: 4 - No Assistance Walk in hospital room: 4 - No Assistance Climbing 3-5 steps with a railin - No Assistance CURRENT -[facility] Mobility Raw Score: 24 CURRENT AM-[facility] Mobility Functional Limitation/Modifier: 0.00% Currently Impaired in Basic Mobility - Interventions: Intervention 1 Intervention Name: Sternal precautions Details: Educated pt on sternal precautions. Pt able to recall sternal precautions with prompts from therapist. Assessment & Plan: Patient was admitted for severe CAD and seen for therapy evaluation related to mild decrease in functional endurance. Pt will not require acute care PT services at this time and would benefit from inpatient cardiac rehab consult. Will complete PT order. . Exam findings include impairments in: none These impairments contribute to functional limitations including . none. Current clinical presentation is Stable - unchanging or predictable (Low). Patient history factors impacting Plan Of Care include . none. Patient will benefit from skilled physical therapy to address these impairments, functional limitations, and participation restrictions and has rehab potential to achieve therapy goals. Patient Instruction/Education this session: Learners: Patient Education provided: Functional transfers, Fall precautions, Bed mobility (sternal precautions) Teaching method: Teach back Learner response: Applies knowledge Learning preferences: Visual Learning considerations: No barriers/ready to learn Patient Instruction/Education comments: Role of PT, sternal precautions, importance of ambulating 3x/day Plan for next session: WIll complete PT order Acute PT Goals Notes from 10/20/2023 11:45 PM through 10/21/2023 11:45 AM No notes of this type exist for this encounter. Pt will verbalize importance of ambulating in hallway 3x/day to maintain endurance/prevent functional weakness-met 2. Pt will recall sternal precautions with minimal cues from therapist. -met PT treatment consisted of the following to progress towards the above goal(s): PT Evaluation and Treatment Time PT Evaluation (Low) Time Entry: 11 Evaluating Therapist: Dee Aquino PT Additional Details: PT Co-Eval/Treatment Information Co-evaluation/co-treatment performed?: Yes, simultaneous billable skilled care was necessary due to medical complexity and functional deficits Other discipline: OT Evaluation Complexity Components History: Low (No personal factors and/or comorbidities) Body Systems Review: Low (Addressing 1-2 elements) Clinical Presentation: Stable - unchanging or predictable (Low) Clinical Decision Making: Low Time In: 0952 Time Out: 1003 Total Visit Time: 11 minutes Total Treatment Time (skilled, billable minutes): 11 minutes Assisted by during session: OT Patient location at end of session: chair Alarms on at end of session: none Needs in reach. Upon discontinuation of Acute Care Physical Therapy Services or patient discharge from the hospital this note represents the current Physical Therapy Discharge Summary. Acute Occupational Therapy Evaluation and Discharge Prior to Admission AM-PAC Score: PRIOR LEVEL AM-PAC Activity Raw Score: 24 Current AM-PAC score(s): CURRENT AM-PAC Activity Raw Score: 23 Based on the above AM-PAC score(s) and OT clinical judgment, discharge destination recommendation is: Home (Pt is pending OHS, will need re-evaluation post-op) Mobility equipment available at home: 2 wheeled walker ADL equipment available at home: none Equipment recommendations for discharge: Current therapy frequency recommendation(s) in acute: no therapy warranted Activity Recommendations for outside of rehab session: amb 3x/day Precautions and Weightbearing Status: OT Existing Precautions/Restrictions: cardiac, fall Telemetry Patient Safety Communication Prior to Visit: Nursing Subjective: Patient notes, my boys are coming up to visit me soon Pain: General Pain Documentation (Adult, OB, Peds) Presence of Pain: denies pain/discomfort Presence of Pain Score (Auto-calculated): 0 Home Setting Residence: House Lives With: alone First floor setup: bedroom, walk-in shower Number of stairs to enter home: 5 Number of stairs in home: 12 Stair Railings at Home: entry - present on right side (ascending) Mobility Equipment Available: 2 wheeled walker ADL Equipment Available: none Home Environment Details: Pt denies any falls in the past 3 months Previous Level of Function Prior level ADL Overview: Independent with all ADLs Dominant Hand: Right Bed Mobility/Transfers: independent Ambulation Skills: independent Assistive Device: none used Level of Ambulation: community Prior Level of Function Details: 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 O2 Device: room air Vision Screen Currently wearing corrective lenses: Reading only Speech Speech: no gross deficits noted Successful Methods (Communication Strategies): verbal speech Hearing Hearing: no gross deficits noted Cognition Overall Cognitive Status: Within Functional Limits Arousal/Alertness: Appropriate responses to stimuli Orientation Level: Oriented X4 Following Commands: Follows all commands and directions without difficulty Safety Judgment: Good awareness of safety precautions Awareness of Errors: Good awareness of errors made ADLs: ADL Anticipated Performance (ADLs not directly observed this session): Eating, Bathing, UE Dressing, Toileting Eating Assistance: Independent Eating Location: chair Grooming Assistance: Independent Grooming Location: standing at sink Grooming Intervention/Details: Pt stands at sink to wash face and hands, no assistance required, no LOB noted Bathing Assistance: Supervision Bathing Location: standing in shower UE Dressing Assistance: Independent UE Dressing Location: edge of bed LE Dressing Assistance: Independent LE Dressing Location: edge of bed LE Dressing Intervention/Details: Pt utlizes figure four positioning to don bilat socks while seated EOB Toilet Assistance: Independent Toileting Location: toilet Extremity Assessments: Hand Nursery Nurse Strength Hand Nursery Nurse Strength Interpretation: Left WNL, Right WNL RUE Assessment RUE Assessment: Within Functional Limits LUE Assessment LUE Assessment: Within Functional Limits Neuro: Sensation Overall Sensation: Intact Sensation Comments: denies n/t Gross Coordination Gross Coordination: bilat UE intact Fine Motor Coordination Additional Documentation: Yes Fine Motor Coordination Left Hand Thumb/Finger Opposition Skills: normal performance Right Hand Thumb/Finger Opposition Skills: normal performance Left Hand, Manipulation of Objects: normal performance Right Hand, Manipulation of Objects: normal performance Mobility Assessment: Transfer Assessment: Sit to Stand Transfer Bremer Level: Sit->Stand: independent Stand to Sit Transfer Bremer Level: Stand->Sit: independent Functional Mobility: Functional Mobility Bremer Level: Functional Mobility/Gait: independent Outcome Score(s): CURRENT AM-PAC Daily Activity Inpatient Short Form Putting on/Taking Off Lower Body Clothin - No Assistance Bathin - A Little Assistance Toiletin - No Assistance Putting on/Taking Off Upper Body Clothin - No Assistance Groomin - No Assistance Eatin - No Assistance CURRENT AM-PAC Activity Raw Score: 23 CURRENT AM-PAC Activity Functional Limitation/Modifier: 15.86% Currently Impaired in Daily Activity - CI PROJECTED AM-PAC Activity Raw Score: 24 PROJECTED AM-PAC Activity Functional Limitation/Modifier: 0.00% - Interventions: Intervention 1 Intervention Name: Sternal Precautions Details: Therapist educated pt on sternal precautions if pt has surgery during inpatient hospital stay. Therapist discussed goals of care after surgery regarding therapy, including functional mobility, strengthening, ADLs while adhering to sternal precautions (including a full shower if discharging home). Pre-op testing, including strength/ROM/mobility/fine motor coordination/ADLs completed and assessed, and will continue to assess post-op. Pt verbalized understanding of all education provided. Intervention 2 Intervention Name: OOB Activity Details: Pt educated in benefits of continued functional mobility and ADL participation while in hospital to prevent deconditioning and functional decline. Pt encouraged to complete all ADLs daily, eat every meal out of bed, and get up to chair 3x/day to promote maintenance of strength, endurance, and activity tolerance while in acute environment. Pt verbalized understanding. Assessment & Plan: Patient was admitted for chest pain, positive enzymes, severe CAD and seen for therapy evaluation related to assessment of performance in ADLs and functional mobility, and safe discharge planning. Exam findings include impairments in: (no performance deficits warranting participation in skilled acute care OT services this date). Patient Instruction/Education this session: Learners: Patient Education provided: Role of this discipline Teaching method: Verbal Education/Instruction Learner response: States/Identifies/Teaches back Learning preferences: Auditory Learning considerations: No barriers/ready to learn Plan for next session: Pt will be discharged from OT at this time. Please re-consult if further needs arise. Acute OT Goals Notes from 10/20/2023 10:30 PM through 10/21/2023 10:30 AM Pt will verbalize understanding of all education provided related to methods for maintaining strength, activity tolerance, and overall independence while in acute environment. Goal Met: 10/21/2022 OT treatment consisted of the following to work and progress towards the above goal(s): OT Evaluation and Treatment Time OT Evaluation (Low) Time Entry: 13 Evaluating Therapist: Mary Oneill OT Additional Details: OT Co-Eval/Treatment Information Co-evaluation/co-treatment performed?: Yes, simultaneous billable skilled care was necessary due to medical complexity and functional deficits Other discipline: PT Rationale for need to co-eval/treat: postural control (and for expedited discharge recommendation) OT Evaluation Complexity Occupational Profile and Client History: Low - brief history Assessment of Occupational Performance: Low (1-3 performance deficits) Clinical Decision/Performance Deficits: Low (problem-focused assessments w/limited treatment options) Time In: 0950 Time Out: 1003 Total Visit Time: 13 minutes Total Treatment Time (skilled, billable minutes): 13 minutes Assisted by during session: PT PPE used during patient interaction: facemask, gloves Patient location at end of session: edge of bed Alarms on at end of session: none, RN aware Needs in reach. Upon discontinuation of Acute Care Occupational Therapy Services or patient discharge from the hospital this note represents the current Occupational Therapy Discharge Summary. CHF/ACS/HRT1 DAILY PROGRESS NOTE IDENTIFYING INFORMATION PATIENT: Afsaneh Bowers ADMIT DATE: 10/20/2023 TIME OF EVALUATION: 10/21/2023 11:47 AM HOSPITAL STAY: LOS: 1 day SUBJECTIVE/INTERVAL HISTORY Afsaneh Bowers's events from the last 12-24 hours were reviewed. - NAEO. - CTA CHEST/ABDOMEN/PELVIS (10/20) - Aortic root dilation, measuring up to 57 mm, w/ enlargement of the ascending thoracic aorta, measuring up to 48 mm at its midpoint. Indeterminate exophytic left lower pole renal lesion. --- Rec MRI for further evaluation. Inferior right upper lobe pulmonary nodule measuring up to 6 mm. --- Rec CT follow-up at 6-12 months. Left adrenal nodule within average density of <0 on noncontrast imaging, likely adrenal adenoma. [Preliminary report] - Cardiac surg recs - good candidate for aortic root repair - [facility]/ECHO images from outside facility obtained Plan for today: - Discuss incidental CTA finding of lesions with patient -- MRI stat (ordered) - hope to get before discharge - Cardiac surgery following for aortic root repair - surgery date unknown (patient informed it could happen as early as Sunday10/23/2023). Rec orders placed. - Cath LCx and LAD (05/22/2024) -- Likely dispo for outpatient aortic root repair - NPO at midnight. - Continue heparin gtt (48 hours total) ASSESSMENT AND PLAN Afsaneh Bowers is a 63 y.o. male with a history of newly diagnosed CAD who presents with chest pain, positive enzymes, severe CAD. NSTEMI; stable vs. unstable angina CAD Patient presents with classic symptoms of stable angina with chest pain on exertion, which resolved at rest and possible progression into unstable angina with the worsening of intensity of the pain versus NSTEMI. His risk factors include age, family history- he is otherwise very active at baseline and has no other medical conditions. He was started on heparin drip, underwent Brilinta and ASA load at OSH ED and underwent LHC, which revealed dilated aortic root and therefore intervention was deferred until he was transferred to [facility]. - Cardiac surgery c/s - Evaluation for CABG - Obtain LHC and TTE report from OSH - Heparin: on infusion (continue for 48 hour total) - ASA: s/p 325mg load; continue 81mg daily - Antiplatelet: none - Not having chest pain - Beta blockade: Lopressor 12.5mg BID. - ACEi / ARB / Entresto: None. - Start within 24 hours of STEMI if patient is able to tolerate or hold ACEi/ARB for possible cath - Statin: Rosuvastatin 10mg daily - ICD / IMPRESS ASSOCIATE: None - Check HgbA1c and lipid panel - Maintain O2 sats >90, monitor on tele while admitted - Consider ACS educator and cardiac rehab consultation Dilated aortic root Found incidentally on LHC done above. Patient has no history of heart murmur, no history of hypertension or other valvular disease. Unclear chronicity. - Call in AM to obtain TTE report - Cardiac surgery c/s - good candidate - started recommendations for surgery work-up. - CTA CHEST/ABDOMEN/PELVIS (10/20) - Aortic root dilation, measuring up to 57 mm, w/ enlargement of the ascending thoracic aorta, measuring up to 48 mm at its midpoint. Pulmonary, Adrenal, Renal Nodules, incidental findings on CTA - CTA CHEST/ABDOMEN/PELVIS (10/20) - Aortic root dilation, measuring up to 57 mm, w/ enlargement of the ascending thoracic aorta, measuring up to 48 mm at its midpoint. Indeterminate exophytic left lower pole renal lesion. --- Rec MRI for further evaluation. Inferior right upper lobe pulmonary nodule measuring up to 6 mm. --- Rec CT follow-up at 6-12 months. Left adrenal nodule within average density of <0 on noncontrast imaging, likely adrenal adenoma. [Preliminary report] - Patient informed of nodules. Discussed outpatient fu with PCP if unable to get MRI here prior to discharge. Patient agreed to plan. - MRI stat ordered. FEN/GI: DIET CARDIAC - VERY LOW SODIUM DIET NPO with meds Ppx: Heparin gtt Dispo: Pending Code Status: Full Code Plan was discussed on rounds with the team. Shaun Orozco MD Emergency Medicine, PGY1 MEDICATIONS SCHEDULED: aspirin chewable tablet 81 mg, 81 mg, Daily Metoprolol (LOPRESSOR) tablet 12.5 mg, 12.5 mg, Q12H Rosuvastatin (CRESTOR) tablet 10 mg, 10 mg, Daily FLUIDS/DRIPS: heparin 16 Units/kg/hr (10/21/23 1000) PRNs: Acetaminophen, 650 mg, Q6H PRN alum/mag hydrox.-simethicone, 30 mL, Q6H PRN guaiFENesin, 400 mg, Q6H PRN Melatonin, 6 mg, QHS PRN Ondansetron 4mg/2ml, 4 mg, Q6H PRN Or Ondansetron, 4 mg, Q6H PRN Polyethylene glycol, 17 g, Daily PRN Promethazine HCl, 25 mg, Q6H PRN Or Promethazine, 25 mg, Q6H PRN Sodium chloride 0.9%, 250 mL, PRN ALLERGIES: He has no allergies on file. OBJECTIVE FINDINGS Vital Signs (24hrs): Temp: [97.4 F (36.3 C)-97.7 F (36.5 C)] 97.5 F (36.4 C) Pulse (Heart Rate): [45-67] 57 Resp Rate: [12-18] 14 BP: (108-118)/(58-71) 109/64 O2 Sat (%): [94 %-97 %] 96 % Weight: [86.8 kg (191 lb 5.8 oz)] 86.8 kg (191 lb 5.8 oz) Hemodynamic/Invasive Device Data (24 hrs): Pulmonary/Cardiac Hemodynamics Pulse (Heart Rate): 57 Neuro ICP/CPP Monitoring MAP (mmHg): 80 mmHg Neuro ICP/CPP Monitoring 2 MAP (mmHg): 80 mmHg Ventilation/Oxygen Therapy (24hrs): Oxygen Therapy O2 Sat (%): 96 % O2 Device: room air Lines/Drains/Airways/Wounds: Patient Lines/Drains/Airways Status Active Lines, Drains, Airways, & Wound Overview Name Placement date Placement time Site Days Peripheral IV Line - Single Lumen 10/20/23 0150 median vein (underside of arm), left 18 gauge 10/20/23 0150 -- 1 Peripheral IV Line - Single Lumen 10/20/23 0150 forearm, posterior, left 20 gauge 10/20/23 0150 -- 1 Wound Sheath Site 10/20/23 0150 Anterior;Distal;Lower;Right Arm 10/20/23 0150 Arm 1 Fluid Management (24hrs): -Intake/Output last 3 shifts: I/O last 3 completed shifts: In: 836.5 [P.O.:500; I.V.:336.5] Out: 550 [Urine:550] Physical Examination: Physical Exam Vitals and nursing note reviewed. Constitutional: Appearance: Normal appearance. HENT: Head: Normocephalic and atraumatic. Nose: Nose normal. Eyes: Extraocular Movements: Extraocular movements intact. Cardiovascular: Rate and Rhythm: Normal rate and regular rhythm. Pulmonary: Effort: Pulmonary effort is normal. Breath sounds: Normal breath sounds. Abdominal: General: Abdomen is flat. Musculoskeletal: General: Normal range of motion. Cervical back: Normal range of motion. Skin: General: Skin is warm. Neurological: General: No focal deficit present. Mental Status: He is alert and oriented to person, place, and time. Psychiatric: Behavior: Behavior normal. DIAGNOSTIC RESULTS/PROCEDURES Labs-ABGs Labs-CBC WBC/Hgb/Hct/Plts: 9.01/14.6/44.5/263 (10/21 641) Labs-Chem 7(P[facility]) Bun/Creat/Cl/CO2/Glucose: 18/0.75/109/22/85 (10/21 641) Na/K+/Phos/Mg/Ca: 140/4.3/--/1.8/-- (10/21 641) Labs-Coags Ptt/Pt/Inr: 79.2/--/-- (10/21 641) Additional Labs Lab Results Component Value Date BNP 143 (H) 10/20/2023 No results found for: TROP Lab Results Component Value Date CHOLESTEROL 105 10/21/2023 TRIG 45 10/21/2023 HDL 35 (L) 10/21/2023 Imaging/Radiological Studies: CT ANEURYSM STUDY WITH AND WITHOUT CONTRAST CHEST/ABDOMEN/PELVIS Preliminary Result IMPRESSION: 1. Aortic root dilation, measuring up to 57 mm. There is also enlargement of the ascending thoracic aorta, measuring up to 48 mm at its midpoint. Please see above for a vessel by vessel description. 2. Indeterminate exophytic left lower pole renal lesion. Recommend nonemergent renal protocol CT or MRI for further evaluation. 3. Inferior right upper lobe pulmonary nodule measuring up to 6 mm. Per Fleischner criteria, recommend CT follow-up at 6-12 months. 4. Left adrenal nodule within average density of <0 on noncontrast imaging, likely representing an adrenal adenoma. This is a preliminary report. Final dictation pending 3-D reformats. MRI ABDOMEN/PELVIS WITHOUT AND WITH CONTRAST (Results Pending) Consults/Procedures: IP CONSULT TO PHYSICAL THERAPY IP CONSULT TO OCCUPATIONAL THERAPY IP CONSULT TO SURGERY - CARDIAC Associated attestation - Kishore Best MD, PhD - 10/23/2023 9:14 AM EST I saw and personally examined Mr. Bowers on 10/21/2023 with the team. I discussed the findings and therapeutic plan and agree with the history and medical decisions as outlined and edited. Kishore Best MD PhD Perl Developer, Division of Cardiovascular Medicine [facility] CHF/ACS/HRT1 DAILY PROGRESS NOTE IDENTIFYING INFORMATION PATIENT: Afsaneh Bowers ADMIT DATE: 10/20/2023 TIME OF EVALUATION: 10/20/2023 9:40 AM HOSPITAL STAY: LOS: 0 days SUBJECTIVE/INTERVAL HISTORY Afsaneh Bowers's events from the last 12-24 hours were reviewed. NAEO. No new chest pain, SOB, or palpations. Plan for today: - Get LHC/Echo images from OSH - CTA Chest - Continue heparin gtt (48 hours total) - Cardiac surgery c/s ASSESSMENT AND PLAN Afsaneh Bowers is a 63 y.o. male with a history of newly diagnosed CAD who presents with chest pain, positive enzymes, severe CAD. NSTEMI; stable vs. unstable angina CAD Patient presents with classic symptoms of stable angina with chest pain on exertion, which resolved at rest and possible progression into unstable angina with the worsening of intensity of the pain versus NSTEMI. His risk factors include age, family history- he is otherwise very active at baseline and has no other medical conditions. He was started on heparin drip, underwent Brilinta and ASA load at OSH ED and underwent LHC, which revealed dilated aortic root and therefore intervention was deferred until he was transferred to [facility]. - Cardiac surgery c/s - Evaluation for CABG - Obtain LHC and TTE report from OSH - Heparin: on infusion (continue for 48 hour total) - ASA: s/p 325mg load; continue 81mg daily - Antiplatelet: none - Not having chest pain - Beta blockade: Lopressor 12.5mg BID. - ACEi / ARB / Entresto: None. - Start within 24 hours of STEMI if patient is able to tolerate or hold ACEi/ARB for possible cath - Statin: Rosuvastatin 10mg daily - ICD / IMPRESS ASSOCIATE: None - Check HgbA1c and lipid panel - Maintain O2 sats >90, monitor on tele while admitted - Consider ACS educator and cardiac rehab consultation Dilated aortic root Found incidentally on LHC done above. Patient has no history of heart murmur, no history of hypertension or other valvular disease. Unclear chronicity. - Call in AM to obtain TTE report - Cardiac surgery c/s - Evaluate for aortic root repair FEN/GI: DIET CARDIAC - VERY LOW SODIUM Ppx: Heparin gtt Dispo: Pending Code Status: Full Code Plan was discussed on rounds with the team. Aaron Purcell MD PGY1 - Anesthesiology MEDICATIONS SCHEDULED: aspirin chewable tablet 81 mg, 81 mg, Daily Metoprolol (LOPRESSOR) tablet 12.5 mg, 12.5 mg, Q12H Rosuvastatin (CRESTOR) tablet 10 mg, 10 mg, Daily FLUIDS/DRIPS: heparin 12 Units/kg/hr (10/20/23 0910) PRNs: Acetaminophen, 650 mg, Q6H PRN alum/mag hydrox.-simethicone, 30 mL, Q6H PRN guaiFENesin, 400 mg, Q6H PRN Melatonin, 6 mg, QHS PRN Ondansetron 4mg/2ml, 4 mg, Q6H PRN Or Ondansetron, 4 mg, Q6H PRN Polyethylene glycol, 17 g, Daily PRN Promethazine HCl, 25 mg, Q6H PRN Or Promethazine, 25 mg, Q6H PRN Sodium chloride 0.9%, 250 mL, PRN ALLERGIES: He has no allergies on file. OBJECTIVE FINDINGS Vital Signs (24hrs): Temp: [97.6 F (36.4 C)-97.9 F (36.6 C)] 97.6 F (36.4 C) Pulse (Heart Rate): [51-54] 51 Resp Rate: [16] 16 BP: (109-155)/(63-79) 109/63 O2 Sat (%): [96 %] 96 % Weight: [88.9 kg (195 lb 15.8 oz)] 88.9 kg (195 lb 15.8 oz) Hemodynamic/Invasive Device Data (24 hrs): Pulmonary/Cardiac Hemodynamics Pulse (Heart Rate): 51 BSA (Calculated - sq m): 2.11 m2 Neuro ICP/CPP Monitoring MAP (mmHg): 78 mmHg Neuro ICP/CPP Monitoring 2 MAP (mmHg): 78 mmHg Ventilation/Oxygen Therapy (24hrs): Oxygen Therapy O2 Sat (%): 96 % O2 Device: room air Oxygen Delivery/Consumption Hemodynamics BSA (Calculated - sq m): 2.11 m2 Lines/Drains/Airways/Wounds: Patient Lines/Drains/Airways Status Active Lines, Drains, Airways, & Wound Overview Name Placement date Placement time Site Days Peripheral IV Line - Single Lumen 10/20/23 0150 median vein (underside of arm), left 18 gauge 10/20/23 0150 -- less than 1 Peripheral IV Line - Single Lumen 10/20/23 015 forearm, posterior, left 20 gauge 10/20/23 0150 -- less than 1 Wound Sheath Site 10/20/23 015 Anterior;Distal;Lower;Right Arm 10/20/23 015 Arm less than 1 Fluid Management (24hrs): -Intake/Output last 3 shifts: I/O last 3 completed shifts: In: - Out: 500 [Urine:500] Physical Examination: Physical Exam Vitals and nursing note reviewed. Constitutional: Appearance: Normal appearance. HENT: Head: Normocephalic and atraumatic. Nose: Nose normal. Eyes: Extraocular Movements: Extraocular movements intact. Cardiovascular: Rate and Rhythm: Normal rate and regular rhythm. Pulmonary: Effort: Pulmonary effort is normal. Breath sounds: Normal breath sounds. Abdominal: General: Abdomen is flat. Musculoskeletal: General: Normal range of motion. Cervical back: Normal range of motion. Skin: General: Skin is warm. Neurological: General: No focal deficit present. Mental Status: He is alert and oriented to person, place, and time. Psychiatric: Behavior: Behavior normal. DIAGNOSTIC RESULTS/PROCEDURES Labs-ABGs Labs-CBC WBC/Hgb/Hct/Plts: 11.40/15.5/47.4/274 (10/20 146) Labs-Chem 7(PMC) Bun/Creat/Cl/CO2/Glucose: 18/0.90/106/23/97 (10/20 146) Na/K+/Phos/Mg/Ca: 138/4.3/--/1.9/-- (10/20 146) Labs-Coags Ptt/Pt/Inr: 32.2/13.6/1.1 (10/20 146) Additional Labs Lab Results Component Value Date BNP 143 (H) 10/20/2023 No results found for: TROP No results found for: CHOLESTEROL, TRIG, HDL Imaging/Radiological Studies: CT ANEURYSM STUDY WITH AND WITHOUT CONTRAST CHEST/ABDOMEN/PELVIS Consults/Procedures: IP CONSULT TO PHYSICAL THERAPY IP CONSULT TO OCCUPATIONAL THERAPY IP CONSULT TO SURGERY - CARDIAC Associated attestation - Kishore Best MD, PhD - 10/21/2023 9:01 AM EST I saw and personally examined Mr. Bowers on 10/20/2023 with the team. I discussed the findings and therapeutic plan and agree with the history and medical decisions as outlined and edited. Kishore Best MD PhD Perl Developer, Division of Cardiovascular Medicine [facility] Physical Therapy Attempt Note 10/20/2023 PT Therapy Completed: Attempted Attempted Reason: Patient is not medically optimized to tolerate therapy program; Awaiting for further medical plan before initiating mobility; will re-attempt as able Osmin Willis PT Time In: 734 Time Out: 734 Total Visit Time: 0 minutes Total Treatment Time (skilled, billable minutes): 0 minutes documented in this encounter [facility] 10-23-2023 Miscellaneous Notes Patient received AVS instructions and RN reviewed along with medication list provided by physician @ bedside. Patient denies any questions or concerns. Peripheral IV & telemetry discontinued per physician order. Patient tolerated procedure without difficulty. Patient denies having any medications secured in medication room upon admission. Patient will be discharged home via wheelchair with belongings and copy of discharge instructions accompanied by hospital staff once patient is dressed & is ready to leave hospital. Patient without signs or symptoms of distress noted. Problem: Patient Care Overview Goal: Plan of Care Review Outcome: Progressing Goal: Individualization & Mutuality Outcome: Progressing Goal: Discharge Needs Assessment Outcome: Progressing Goal: Interdisciplinary Rounds/Family Conf Outcome: Progressing Problem: Cardiac: ACS (Acute Coronary Syndrome) (Adult) Goal: Signs and Symptoms of Listed Potential Problems Will be Absent, Minimized or Managed (Cardiac: ACS) Description: Signs and symptoms of listed potential problems will be absent, minimized or managed by discharge/transition of care (reference Cardiac: ACS (Acute Coronary Syndrome) (Adult) CPG). Outcome: Progressing Preliminary Report - Brief Cardiac Catheterization Procedure Note Afsaneh Bowers ([id number]) Pre Procedural Diagnosis NSTEMI (non-ST elevated myocardial infarction) [I21.4] Post Procedural Diagnosis Nonobstructive CAD Procedure Performed Coronary Angiogram Access Site/Hemostasis Right femoral artery, Sheath left in Findings Left Ventricular End Diastolic Pressure: Not assessed Left Ventricular Ejection Fraction: Not assessed Preliminary Results of Angiography Non-obstructive CAD Percutaneous Coronary Intervention No Intervention Intraprocedure Anticoagulation Heparin Post-procedure Anticoagulation Anticoagulation to be restarted: No Estimated Blood Loss Minimal Complications None Admission Does patient need to be admitted: Currently admitted Surgeon Surgeons and Role: * Evan Mosqueda MD - Primary * Calin Cobb MD - Fellow Procedural Staff Sedation Nurse: Carolina Tejada RN; Luis Avina RN Documenter: RT Oralia Full report to follow Calin Cobb MD October 22, 2023 1:13 PM Problem: Patient Care Overview Goal: Plan of Care Review Outcome: Progressing Goal: Individualization & Mutuality Outcome: Progressing Goal: Discharge Needs Assessment Outcome: Progressing Goal: Interdisciplinary Rounds/Family Conf Outcome: Progressing Problem: Cardiac: ACS (Acute Coronary Syndrome) (Adult) Goal: Signs and Symptoms of Listed Potential Problems Will be Absent, Minimized or Managed (Cardiac: ACS) Description: Signs and symptoms of listed potential problems will be absent, minimized or managed by discharge/transition of care (reference Cardiac: ACS (Acute Coronary Syndrome) (Adult) CPG). Outcome: Progressing Problem: Patient Care Overview Goal: Plan of Care Review Outcome: Progressing Goal: Individualization & Mutuality Outcome: Progressing Goal: Discharge Needs Assessment Outcome: Progressing Goal: Interdisciplinary Rounds/Family Conf Outcome: Progressing Flowsheets (Taken 10/21/2023 0958) Participants: physician nursing patient Problem: Cardiac: ACS (Acute Coronary Syndrome) (Adult) Goal: Signs and Symptoms of Listed Potential Problems Will be Absent, Minimized or Managed (Cardiac: ACS) Description: Signs and symptoms of listed potential problems will be absent, minimized or managed by discharge/transition of care (reference Cardiac: ACS (Acute Coronary Syndrome) (Adult) CPG). Outcome: Progressing Problem: Patient Care Overview Goal: Plan of Care Review Outcome: Progressing Goal: Individualization & Mutuality Outcome: Progressing Goal: Discharge Needs Assessment Outcome: Progressing Goal: Interdisciplinary Rounds/Family Conf Outcome: Progressing Problem: Cardiac: ACS (Acute Coronary Syndrome) (Adult) Goal: Signs and Symptoms of Listed Potential Problems Will be Absent, Minimized or Managed (Cardiac: ACS) Description: Signs and symptoms of listed potential problems will be absent, minimized or managed by discharge/transition of care (reference Cardiac: ACS (Acute Coronary Syndrome) (Adult) CPG). Outcome: Progressing 2 La Daily Rounding Plan of Care The following multidisciplinary plan of care was discussed with the attending service regarding Afsaneh Bowers. Today's Plan of Care: -Obtain imaging from OSH -CT Surg consult -CT aneurysm study -Heparin gtt Cardiac Monitoring Current Cardiac Monitoring order: yes Renewal order indicated yes 4 hour telemetry recall: Sinus steven-NSR; HR 48-63 Oxygen O2 Sat (%): 96 % (10/20 1119) O2 Device: room air (10/20 111) LDAs The type, length of duration and necessity of all lines and drains listed below was reviewed, in order to prevent any possible sources of infection and encourage timely removal. Russ indicated: No Central line indicated: No Patient Lines/Drains/Airways Status Active Lines, Drains, Airways, & Wound Overview Name Placement date Placement time Site Days Peripheral IV Line - Single Lumen 10/20/23 0150 median vein (underside of arm), left 18 gauge 10/20/23 0150 -- less than 1 Peripheral IV Line - Single Lumen 10/20/23 0150 forearm, posterior, left 20 gauge 10/20/23 0150 -- less than 1 Wound Sheath Site 10/20/23 0150 Anterior;Distal;Lower;Right Arm 10/20/23 0150 Arm less than 1 Mobility Activity plan: normal PT/OT: no Need for DVT prophylaxis: yes Heparin gtt Consults/Discharge Planning Social Work: no Case Management needs: yes Cardiac rehab: yes Estimated Discharge Date pending [facility]HS consult Maritza Clay RN Problem: Patient Care Overview Goal: Plan of Care Review Outcome: Progressing Goal: Individualization & Mutuality Outcome: Progressing Goal: Discharge Needs Assessment Outcome: Progressing Goal: Interdisciplinary Rounds/Family Conf Outcome: Progressing Problem: Cardiac: ACS (Acute Coronary Syndrome) (Adult) Goal: Signs and Symptoms of Listed Potential Problems Will be Absent, Minimized or Managed (Cardiac: ACS) Description: Signs and symptoms of listed potential problems will be absent, minimized or managed by discharge/transition of care (reference Cardiac: ACS (Acute Coronary Syndrome) (Adult) CPG). Outcome: Progressing documented in this encounter [facility] 10-23-2023 Hospital course Narrative Images from the original note were not included. DISCHARGE SUMMARY Name: Afsaneh Bowers Age: 63 y.o. Birthday: 1960 Admit Date: 10/20/2023 1:36 AM Discharge Date: 10/23/23 Discharge Unit: [facility] Admission Information Admitting Physician: Shoaib Dubon MD Discharge Information Discharge Physician: Emilee Galvan MD Active Hospital Problems Diagnosis Chest pain Resolved Hospital Problems No resolved problems to display. RESULTS / STUDIES PENDING AT DISCHARGE: FURTHER RECOMMENDATIONS: No discharge procedures on file. DISCHARGE LETTER: Dear Doctors, I recently had the opportunity to care for Afsaneh Bowers during his recent hospital stay at [facility] [place]. The following describes his hospital course. Afsaneh Bowers is a 63 y.o. male with a history of newly diagnosed CAD who presents with chest pain, positive enzymes, severe CAD. He presented to OSH with episodes of stable angina. They did a LHC and after finding aortic root dilation, decided not to intervene. They transferred him to [facility] for cardiac surgery evaluation of aortic root repair and possible CABG. CTA of the chest showed an aortic root dilation, measuring up to 57 mm. Coronary Angiogram and Instantaneous Wave-Free Ratio (iFR) were also performed, revealing no vessel stenosis >60% and minimal iFR change (0.98 in the LAD and 0.99 in the first diagonal). It was determined that no CABG would be necessary and he would be scheduled for aortic root repair with Dr. Ríos as an outpatient. Of note, CTA chest found an inferior right upper lobe pulmonary nodule measuring up to 6 mm. It is recommended that he get a repeat CT chest in -12. CTA A/P also found an indeterminate exophytic left lower pole renal lesion. MRI A/P determined the lesion is likely a cyst and not concerning for a mass. Physical Exam on the Date of Discharge: Temp: [97.7 F (36.5 C)-97.9 F (36.6 C)] 97.9 F (36.6 C) Pulse (Heart Rate): [0-66] 50 Resp Rate: [12-37] 16 BP: (99-141)/(54-76) 135/72 Arterial Line (1) BP: (124-142)/(57-67) 142/62 O2 Sat (%): [90 %-100 %] 97 % Weight: [87 kg (191 lb 12.8 oz)] 87 kg (191 lb 12.8 oz) Body mass index is 26.01 kg/m . Wt Readings from Last 1 Encounters: 10/23/23 87 kg (191 lb 12.8 oz) CV: RRR, no murmurs, gallops, rubs heard on auscultation Resp: CTAB, normal work of breathing GI: Bowel sounds present Neuro: Patient alert, oriented x3 Psych: Normal mood and affect Upon discharge the patient's code status was Full Code It has been my pleasure participating in this patient's care. Please contact me with any questions or concerns regarding his hospital stay. Sincerely, Aaron Purcell MD Anesthesiology, PGY-1 Dictated under attending physician Emilee Galvan MD Division of Cardiology CONSULTS DURING ADMISSION: IP CONSULT TO PHYSICAL THERAPY IP CONSULT TO PHYSICAL THERAPY IP CONSULT TO OCCUPATIONAL THERAPY IP CONSULT TO OCCUPATIONAL THERAPY IP CONSULT TO SURGERY - CARDIAC IMAGING / PROCEDURES / RESULTS: MRI ABDOMEN WITH AND WITHOUT CONTRAST Final Result IMPRESSION: 1. The left lower pole renal lesion corresponds to a hemorrhagic/proteinaceous cyst. No suspicious renal masses. 2. The left adrenal nodule demonstrates features consistent with a benign, lipid rich adenoma. ANEURYSM STUDY WITH AND WITHOUT CONTRAST CHEST/ABDOMEN/PELVIS Final Result IMPRESSION: 1. Aortic root dilation, measuring up to 57 mm. There is also enlargement of the ascending thoracic aorta, measuring up to 48 mm at its midpoint. Please see above for a vessel by vessel description. 2. Indeterminate exophytic left lower pole renal lesion. Recommend nonemergent renal protocol CT or MRI for further evaluation. 3. Inferior right upper lobe pulmonary nodule measuring up to 6 mm. Per Fleischner criteria, recommend CT follow-up at 6-12 months. 4. Left adrenal nodule within average density of <0 on noncontrast imaging, likely representing an adrenal adenoma. Should you require further information or copies of results or reports please contact [employer] @ [phone] LABS AT TIME OF DISCHARGE: Lab Results Component Value Date SODIUM 138 10/23/2023 POTASSIUM 4.3 10/23/2023 MAGNESIUM 1.8 10/23/2023 BUN 19 10/23/2023 CREATSERUM 0.99 10/23/2023 Lab Results Component Value Date WBC 8.20 10/23/2023 HGB 14.5 10/23/2023 PLATELET 265 10/23/2023 INR 1.1 10/20/2023 Lab Results Component Value Date HGBA1C 5.3 10/21/2023 Lab Results Component Value Date AST 26 10/21/2023 ALT 14 10/21/2023 ALKPHOS 37 10/21/2023 BILITOTAL 0.7 10/21/2023 BILIDIRECT 0.1 10/21/2023 ALBUMIN 3.3 (L) 10/21/2023 PATIENT'S MEDICAL HOME AT DISCHARGE: Chilango Welsh [address] [facility] [address] / [facility] [id number] MEDICATIONS: Medication List for when you go home START taking these medications Morning Afternoon Evening Bedtime As Needed aspirin 81 MG CHEW chewable tablet Chew 1 tablet daily. Last time this was given: 81 mg on October 23, 2023 8:49 AM Metoprolol succinate 25 MG tablet XL Take 1 tablet by mouth daily. Commonly known as: Toprol XL Last time this was given: Ask your nurse or doctor Rosuvastatin 20 MG TABS Take 1 tablet by mouth daily. Commonly known as: CRESTOR Last time this was given: 20 mg on October 23, 2023 8:51 AM Start taking on: October 24, 2023 FOLLOW-UP APPOINTMENTS: Chilango Welsh MD [address] [facility] [phone] Schedule an appointment as soon as possible for a visit Associated attestation - Emilee Galvan MD - 10/23/2023 12:26 PM EST I saw and personally examined Afsaneh Bowers with the team on the day of discharge. I discussed the findings and therapeutic plan and agree with the medical decisions and hospital course as outlined and edited above. I spent greater than 30 minutes on coordination of discharge care. Emilee Galvan MD Recording Studio Setup Worker, Division of Cardiovascular Medicine [facility] documented in this encounter [facility] 10-23-2023 Hospital Discharge instructions Aaron Purcell MD - 10/23/2023 9:36 AM EST Your Healthcare Journey Thank you for allowing us to participate in your care. Please remember that while you've made great progress in the hospital, the road to getting better isn't finished just yet. A crucial part of this journey relies on your follow-up care and sticking to the instructions below. Here are some health issues we worked on together: Brief Summary: You were admitted to the hospital due to chest pain. We performed a Coronary Angiogram (limited to further assess below) and Instantaneous Wave-Free Ratio (iFR) and it demonstrated from coronary stenosis, but did not suggest you are in need of coronary artery by-pass grafting (CABG). Cardiac surgery plans to repair your aortic dilation in the next 1-2 weeks. They will call you to schedule surgery, For your Coronary Artery Disease: - Start taking aspirin 81mg daily - Start taking metoprolol XL 25mg daily - Start taking rosuvastatin 20mg daily Follow up with other doctors It's important to touch base with several doctors who will review what happened at the hospital and ensure you continue to get better. Some are doctors you've already seen before, and others are new. You will need to be scheduled for these follow ups. Our egg caser may have helped you with this. If so, your appointment(s) and when it's scheduled are listed below. If an appointment hasn't been scheduled, you'll need to call their scheduling department. No future appointments. - Follow up with Cardiac Surgery in 1 week if no one calls you to schedule surgery. Please call Cardiothoracic Surgery - [phone] to schedule your appointment. - Follow up with your primary care physician (Chilango Welsh, ) within two weeks Please go to the emergency department if you experience any new or worsening severe headache, lightheaded or dizziness, and chest pain, or for any other symptoms or concerns. Thank you for allowing us to participate in your care. Aaron Purcell MD [place] [id number] [place] [id number] Dept: [phone] Dept documented in this encounter [facility] 10-23-2023 Plan of care note Problem: Patient Care Overview Goal: Plan of Care Review Outcome: Progressing Goal: Individualization & Mutuality Outcome: Progressing Goal: Discharge Needs Assessment Outcome: Progressing Goal: Interdisciplinary Rounds/Family Conf Outcome: Progressing Problem: Cardiac: ACS (Acute Coronary Syndrome) (Adult) Goal: Signs and Symptoms of Listed Potential Problems Will be Absent, Minimized or Managed (Cardiac: ACS) Description: Signs and symptoms of listed potential problems will be absent, minimized or managed by discharge/transition of care (reference Cardiac: ACS (Acute Coronary Syndrome) (Adult) CPG). Outcome: Progressing [facility] 10-22-2023 Surgery Postoperative evaluation and management note Preliminary Report - Brief Cardiac Catheterization Procedure Note Afsaneh Bowers ([id number]) Pre Procedural Diagnosis NSTEMI (non-ST elevated myocardial infarction) [I21.4] Post Procedural Diagnosis Nonobstructive CAD Procedure Performed Coronary Angiogram Access Site/Hemostasis Right femoral artery, Sheath left in Findings Left Ventricular End Diastolic Pressure: Not assessed Left Ventricular Ejection Fraction: Not assessed Preliminary Results of Angiography Non-obstructive CAD Percutaneous Coronary Intervention No Intervention Intraprocedure Anticoagulation Heparin Post-procedure Anticoagulation Anticoagulation to be restarted: No Estimated Blood Loss Minimal Complications None Admission Does patient need to be admitted: Currently admitted Surgeon Surgeons and Role: * Evan Mosqueda MD - Primary * Calin Cobb MD - Fellow Procedural Staff Sedation Nurse: Carolina Tejada RN; Luis Avina RN Documenter: RT Oralia Full report to follow Calin Cobb MD October 22, 2023 1:13 PM [facility] Work Phone: 10-22-2023 Plan of care note Problem: Patient Care Overview Goal: Plan of Care Review Outcome: Progressing Goal: Individualization & Mutuality Outcome: Progressing Goal: Discharge Needs Assessment Outcome: Progressing Goal: Interdisciplinary Rounds/Family Conf Outcome: Progressing Problem: Cardiac: ACS (Acute Coronary Syndrome) (Adult) Goal: Signs and Symptoms of Listed Potential Problems Will be Absent, Minimized or Managed (Cardiac: ACS) Description: Signs and symptoms of listed potential problems will be absent, minimized or managed by discharge/transition of care (reference Cardiac: ACS (Acute Coronary Syndrome) (Adult) CPG). Outcome: Progressing [facility] 10-21-2023 Plan of care note Problem: Patient Care Overview Goal: Plan of Care Review Outcome: Progressing Goal: Individualization & Mutuality Outcome: Progressing Goal: Discharge Needs Assessment Outcome: Progressing Goal: Interdisciplinary Rounds/Family Conf Outcome: Progressing Flowsheets (Taken 10/21/2023 1266) Participants: physician nursing patient Problem: Cardiac: ACS (Acute Coronary Syndrome) (Adult) Goal: Signs and Symptoms of Listed Potential Problems Will be Absent, Minimized or Managed (Cardiac: ACS) Description: Signs and symptoms of listed potential problems will be absent, minimized or managed by discharge/transition of care (reference Cardiac: ACS (Acute Coronary Syndrome) (Adult) CPG). Outcome: Progressing [facility] 10-21-2023 Plan of care note Problem: Patient Care Overview Goal: Plan of Care Review Outcome: Progressing Goal: Individualization & Mutuality Outcome: Progressing Goal: Discharge Needs Assessment Outcome: Progressing Goal: Interdisciplinary Rounds/Family Conf Outcome: Progressing Problem: Cardiac: ACS (Acute Coronary Syndrome) (Adult) Goal: Signs and Symptoms of Listed Potential Problems Will be Absent, Minimized or Managed (Cardiac: ACS) Description: Signs and symptoms of listed potential problems will be absent, minimized or managed by discharge/transition of care (reference Cardiac: ACS (Acute Coronary Syndrome) (Adult) CPG). Outcome: Progressing [facility] 10-20-2023 Consult note Associated Order (s): IP CONSULT TO SURGERY - CARDIAC CARDIAC SURGERY CONSULT NOTE Reason for Consult: incidental aortic root aneurysm We were asked by Dr. Shoaib Dubon MD to see Afsaneh Bowers and offer our opinion on the evaluation of Ascending aortic aneurysm. Mr. Bowers is a 63 y.o. 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 He was deemed as NSTEMI and taken to [facility]. It is to be determined if he has significant lesions on his LHC, however, he has aortic root aneurysm that measures [address] scan. His TTE shows some AI roughly estimated as mild-moderate upon my qualitative read. CSY consulted for aortic root dilatation and c/f NSTEMI. He denies back pain, shortness of breath and has no complaints of numbness or pain in the upper or lower extremities. He admits to left shoulder pain that was provoked with exertions REVIEW OF SYSTEMS Review of Systems Neurological ROS: no TIA or stroke symptoms Cardiovascular ROS: no chest pain or palpitations Respiratory ROS: no cough, shortness of breath, or wheezing Endocrine ROS: negative Gastrointestinal ROS: no abdominal pain, change in bowel habits, or black or bloody stools Psychological ROS: negative Musculoskeletal ROS: + shoulder pain and hx of shoulder surgery Hematological and Lymphatic ROS: negative RELEVANT INFORMATION No past medical history on file. No past surgical history on file. No family history on file. Social History reports that he has never smoked. He has never been exposed to tobacco smoke. He has never used smokeless tobacco. He reports that he does not drink alcohol and does not use drugs. Social History Tobacco Use Smoking Status Never Passive exposure: Never Smokeless Tobacco Never Social History Substance and Sexual Activity Alcohol Use Never Allergies Not on File Current Medications Scheduled Meds: aspirin 81 mg Oral Daily Metoprolol 12.5 mg Oral Q12H Rosuvastatin 10 mg Oral Daily Continuous Infusions: heparin 16 Units/kg/hr (10/20/23 1840) PRN Meds:Acetaminophen, alum/mag hydrox.-simethicone, guaiFENesin, Melatonin, Ondansetron 4mg/2ml OR Ondansetron, Polyethylene glycol, Promethazine HCl OR Promethazine, Sodium chloride 0.9% DIAGNOSTIC RESULTS Left Heart Catheterization OSH Echocardiogram OSH pushed to chart Labs: Lab Results Component Value Date WBC 11.40 (H) 10/20/2023 HGB 15.5 10/20/2023 PLATELET 274 10/20/2023 PTT 66.1 (H) 10/20/2023 INR 1.1 10/20/2023 SODIUM 138 10/20/2023 POTASSIUM 4.3 10/20/2023 CHLORIDE 106 10/20/2023 CO2 23 10/20/2023 BUN 18 10/20/2023 MAGNESIUM 1.9 10/20/2023 PHYSICAL EXAM Physical Exam Vital Signs (24hrs): Blood pressure 113/69, pulse 51, temperature 97.7 F (36.5 C), temperature source Oral, resp. rate 16, height 1.829 m (6'), weight 88.9 kg (195 lb 15.8 oz), SpO2 97%. Pulmonary/Cardiac Hemodynamics Pulse (Heart Rate): 51 BSA (Calculated - sq m): 2.11 m2 Body mass index is 26.58 kg/m . Intake/Output Summary (Last 24 hours) at 10/20/20232044 Last data filed at 10/20/2023 1840 Gross per 24 hour Intake 466.94 ml Output 500 ml Net -33.06 ml Wt Readings from Last 3 Encounters: 10/20/23 88.9 kg (195 lb 15.8 oz) PHYSICAL EXAM Gen NAD pleasant thin CV RRR Pulm on RA Abd soft NTD ND LE no edema well perfused ASSESSMENT/PLAN Afsaneh Bowers is a 63 y.o. year old male here with c/f NSTEMI and aortic root dilatation. Upon Dr. Ríos and Dr. Dubon review of the [facility] it is unclear if he has a significant lesion. In term of his aortic root, it will need repaired and he can be seen as an outpatient with Dr. Ríos to discuss. In the meantime, we will discuss Dr. Best the [facility] and determine if he needs more urgent intervention if any for his presumed CAD lesions. We advised the patient regarding surgical options for his dilatated aortic root. He should take of any dentition issues before the surgery. Please continue to hold DAPT (brilinta) until C is further delineated. RECOMMENDATIONS: We would recommend the following: - Please maintain tight blood pressure with a goal of SBP < 130 mmHg and DBP < 90mmHg Laboratory Testing Including (if not already obtained): - LFTs, albumin and prealbumin - High-risk surgery MRSA screen (nares only) - TSH, T4Free - Hemoglobin A1C - Lipid profile - Chemistry and CBC with differential - Type and Cross (within 24 hours of surgery for inpatient) Imaging Recommendations: - CT aneurysm study (completed) - Echocardiogram (completed ) - Left heart catheterization (completed) - PFTs with spirometry and flow loops Consult recommendations: - Medication Consideration -- Please double check current medication list against the following PREOPERATIVE MEDICATION RECOMMENDATIONS PRIOR TO CARDIAC SURGERY and also please consider these recommendations in management decisions while waiting for surgery. - In attempts to help conserve blood and blood products, the following labs will be required for surgical planning purposes: - CBC - Iron, Ferritin, Total Iron Binding Capacity, Transferrin Saturation - B12, Folate If the Hemoglobin is less than 12 in the setting of a Transferrin Saturation of <20% or Ferritin <150, please initiate the following treatment if surgical intervention is scheduled -- - Folic acid 1mg PO daily - Vitamin B12 1000mcg PO daily - Iron dextran 1000mg IV once Surgical Atrial fibrillation prophylaxis (CABG and Valve surgery) do not give if patient has severe aortic stenosis: Please start amiodarone 400mg PO TID for 3 days prior to SCHEDULED surgery date, followed by 200mg PO daily Please start metoprolol tartrate 12.5m PO Q12hrs if HR>60 and SBP >100 Per STS Guidelines, insulin therapy is indicated if glucose is persistently >180mg/dL within 12 hours of surgery. If patient has had more than 2 abnormal blood glucose levels >180mg/dL within 24 hours of surgery, please start an insulin infusion per protocol. This patient was discussed with Dr. Ríos. Thank you for the consult. Please call with any additional questions or concerns. Fracisco Andrade MD, PhD [id number] Associated attestation - Ani Ríos MD (John) - 10/22/2023 6:35 PM EST I independently evaluated the patient with the the resident, Dr Andrade. I agree with the history, exam, and plan as detailed by him. Based on the history and exam, I agree with the medical decision making with the following comment(s): Mr Bowers has a dilated root with a moderate ascending aorta dilation. The root is 59 mm and the ascending aorta [address] scan October 19, 2023. I reviewed the imaging myself. He had a cath showing no discernable coronary artery disease but there was some thought by the sending institution that CAD was present. Reassessment with pressure wire suggested no iFR significant lesion. He has central AI jet on the echocardiogram from Oct 19, 2023 ( I reviewed the imaging myself) and the valve is tri-leaflet. There is no indication of prolapsing cusps. He has preserved renal and LV function. We spoke about the surgery to correct the aortic aneurysm, namely a valve-sparing root, ascending aortic-hemiarch replacement. In the event that a competent aortic valve could not be facilitated we reviewed the options for valve replacement. He decided on a tissue prothesis in the event of more than mild residual AI. We will identify a surgical date for him and have him come in to the clinic for a pre-op visit. Thank you for involving us in his care. Nina Ríos MD [facility] Work Phone: 10-20-2023 Consult note Associated Order (s): IP CONSULT TO SURGERY - CARDIAC CARDIAC SURGERY CONSULT NOTE Reason for Consult: incidental aortic root aneurysm We were asked by Dr. Shoaib Dubon MD to see Afsaneh Bowers and offer our opinion on the evaluation of Ascending aortic aneurysm. Mr. Bowers is a 63 y.o. 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 He was deemed as NSTEMI and taken to [facility]. It is to be determined if he has significant lesions on his [facility], however, he has aortic root aneurysm that measures [address] scan. His TTE shows some AI roughly estimated as mild-moderate upon my qualitative read. CSY consulted for aortic root dilatation and c/f NSTEMI. He denies back pain, shortness of breath and has no complaints of numbness or pain in the upper or lower extremities. He admits to left shoulder pain that was provoked with exertions REVIEW OF SYSTEMS Review of Systems Neurological ROS: no TIA or stroke symptoms Cardiovascular ROS: no chest pain or palpitations Respiratory ROS: no cough, shortness of breath, or wheezing Endocrine ROS: negative Gastrointestinal ROS: no abdominal pain, change in bowel habits, or black or bloody stools Psychological ROS: negative Musculoskeletal ROS: + shoulder pain and hx of shoulder surgery Hematological and Lymphatic ROS: negative RELEVANT INFORMATION No past medical history on file. No past surgical history on file. No family history on file. Social History reports that he has never smoked. He has never been exposed to tobacco smoke. He has never used smokeless tobacco. He reports that he does not drink alcohol and does not use drugs. Social History Tobacco Use Smoking Status Never Passive exposure: Never Smokeless Tobacco Never Social History Substance and Sexual Activity Alcohol Use Never Allergies Not on File Current Medications Scheduled Meds: aspirin 81 mg Oral Daily Metoprolol 12.5 mg Oral Q12H Rosuvastatin 10 mg Oral Daily Continuous Infusions: heparin 16 Units/kg/hr (10/20/23 1840) PRN Meds:Acetaminophen, alum/mag hydrox.-simethicone, guaiFENesin, Melatonin, Ondansetron 4mg/2ml OR Ondansetron, Polyethylene glycol, Promethazine HCl OR Promethazine, Sodium chloride 0.9% DIAGNOSTIC RESULTS Left Heart Catheterization OSH Echocardiogram OSH pushed to chart Labs: Lab Results Component Value Date WBC 11.40 (H) 10/20/2023 HGB 15.5 10/20/2023 PLATELET 274 10/20/2023 PTT 66.1 (H) 10/20/2023 INR 1.1 10/20/2023 SODIUM 138 10/20/2023 POTASSIUM 4.3 10/20/2023 CHLORIDE 106 10/20/2023 CO2 23 10/20/2023 BUN 18 10/20/2023 MAGNESIUM 1.9 10/20/2023 PHYSICAL EXAM Physical Exam Vital Signs (24hrs): Blood pressure 113/69, pulse 51, temperature 97.7 F (36.5 C), temperature source Oral, resp. rate 16, height 1.829 m (6'), weight 88.9 kg (195 lb 15.8 oz), SpO2 97%. Pulmonary/Cardiac Hemodynamics Pulse (Heart Rate): 51 BSA (Calculated - sq m): 2.11 m2 Body mass index is 26.58 kg/m . Intake/Output Summary (Last 24 hours) at 10/20/20232044 Last data filed at 10/20/2023 1840 Gross per 24 hour Intake 466.94 ml Output 500 ml Net -33.06 ml Wt Readings from Last 3 Encounters: 10/20/23 88.9 kg (195 lb 15.8 oz) PHYSICAL EXAM Gen NAD pleasant thin CV RRR Pulm on RA Abd soft NTD ND LE no edema well perfused ASSESSMENT/PLAN Afsaneh Bowers is a 63 y.o. year old male here with c/f NSTEMI and aortic root dilatation. Upon Dr. Ríos and Dr. Dubon review of the [facility] it is unclear if he has a significant lesion. In term of his aortic root, it will need repaired and he can be seen as an outpatient with Dr. Ríos to discuss. In the meantime, we will discuss Dr. Best the [facility] and determine if he needs more urgent intervention if any for his presumed CAD lesions. We advised the patient regarding surgical options for his dilatated aortic root. He should take of any dentition issues before the surgery. Please continue to hold DAPT (brilinta) until [facility] is further delineated. RECOMMENDATIONS: We would recommend the following: - Please maintain tight blood pressure with a goal of SBP < 130 mmHg and DBP < 90mmHg Laboratory Testing Including (if not already obtained): - LFTs, albumin and prealbumin - High-risk surgery MRSA screen (nares only) - TSH, T4Free - Hemoglobin A1C - Lipid profile - Chemistry and CBC with differential - Type and Cross (within 24 hours of surgery for inpatient) Imaging Recommendations: - CT aneurysm study (completed) - Echocardiogram (completed ) - Left heart catheterization (completed) - PFTs with spirometry and flow loops Consult recommendations: - Medication Consideration -- Please double check current medication list against the following PREOPERATIVE MEDICATION RECOMMENDATIONS PRIOR TO CARDIAC SURGERY and also please consider these recommendations in management decisions while waiting for surgery. - In attempts to help conserve blood and blood products, the following labs will be required for surgical planning purposes: - CBC - Iron, Ferritin, Total Iron Binding Capacity, Transferrin Saturation - B12, Folate If the Hemoglobin is less than 12 in the setting of a Transferrin Saturation of <20% or Ferritin <150, please initiate the following treatment if surgical intervention is scheduled -- - Folic acid 1mg PO daily - Vitamin B12 1000mcg PO daily - Iron dextran 1000mg IV once Surgical Atrial fibrillation prophylaxis (CABG and Valve surgery) do not give if patient has severe aortic stenosis: Please start amiodarone 400mg PO TID for 3 days prior to SCHEDULED surgery date, followed by 200mg PO daily Please start metoprolol tartrate 12.5m PO Q12hrs if HR>60 and SBP >100 Per STS Guidelines, insulin therapy is indicated if glucose is persistently >180mg/dL within 12 hours of surgery. If patient has had more than 2 abnormal blood glucose levels >180mg/dL within 24 hours of surgery, please start an insulin infusion per protocol. This patient was discussed with Dr. Ríos. Thank you for the consult. Please call with any additional questions or concerns. Fracisco Andrade MD, PhD [id number] Associated attestation - Ani Ríos MD (John) - 10/22/2023 6:35 PM EST I independently evaluated the patient with the the resident, Dr Andrade. I agree with the history, exam, and plan as detailed by him. Based on the history and exam, I agree with the medical decision making with the following comment(s): Mr Bowers has a dilated root with a moderate ascending aorta dilation. The root is 59 mm and the ascending aorta [address] scan October 19, 2023. I reviewed the imaging myself. He had a cath showing no discernable coronary artery disease but there was some thought by the sending institution that CAD was present. Reassessment with pressure wire suggested no iFR significant lesion. He has central AI jet on the echocardiogram from Oct 19, 2023 ( I reviewed the imaging myself) and the valve is tri-leaflet. There is no indication of prolapsing cusps. He has preserved renal and LV function. We spoke about the surgery to correct the aortic aneurysm, namely a valve-sparing root, ascending aortic-hemiarch replacement. In the event that a competent aortic valve could not be facilitated we reviewed the options for valve replacement. He decided on a tissue prothesis in the event of more than mild residual AI. We will identify a surgical date for him and have him come in to the clinic for a pre-op visit. Thank you for involving us in his care. Nina Ríos MD documented in this encounter [facility] 10-20-2023 Plan of care note 2 [place] Rounding Plan of Care The following multidisciplinary plan of care was discussed with the attending service regarding Afsaneh Bowers. Today's Plan of Care: -Obtain imaging from OSH -CT Surg consult -CT aneurysm study -Heparin gtt Cardiac Monitoring Current Cardiac Monitoring order: yes Renewal order indicated yes 4 hour telemetry recall: Sinus steven-NSR; HR 48-63 Oxygen O2 Sat (%): 96 % (10/20 111) O2 Device: room air (10/20 111) LDAs The type, length of duration and necessity of all lines and drains listed below was reviewed, in order to prevent any possible sources of infection and encourage timely removal. [place] indicated: No Central line indicated: No Patient Lines/Drains/Airways Status Active Lines, Drains, Airways, & Wound Overview Name Placement date Placement time Site Days Peripheral IV Line - Single Lumen 10/20/23 0150 median vein (underside of arm), left 18 gauge 10/20/23 0150 -- less than 1 Peripheral IV Line - Single Lumen 10/20/23 0150 forearm, posterior, left 20 gauge 10/20/23 0150 -- less than 1 Wound Sheath Site 10/20/23 0150 Anterior;Distal;Lower;Right Arm 10/20/23 0150 Arm less than 1 Mobility Activity plan: normal PT/OT: no Need for DVT prophylaxis: yes Heparin gtt Consults/Discharge Planning Social Work: no Case Management needs: yes Cardiac rehab: yes Estimated Discharge Date pending OHS consult Maritza Clay RN Problem: Patient Care Overview Goal: Plan of Care Review Outcome: Progressing Goal: Individualization & Mutuality Outcome: Progressing Goal: Discharge Needs Assessment Outcome: Progressing Goal: Interdisciplinary Rounds/Family Conf Outcome: Progressing Problem: Cardiac: ACS (Acute Coronary Syndrome) (Adult) Goal: Signs and Symptoms of Listed Potential Problems Will be Absent, Minimized or Managed (Cardiac: ACS) Description: Signs and symptoms of listed potential problems will be absent, minimized or managed by discharge/transition of care (reference Cardiac: ACS (Acute Coronary Syndrome) (Adult) CPG). Outcome: Progressing [facility] 10-20-2023 Note Acute Coronary Syndr ome (ACS): Initial Evaluation and Management: [email or web address] 10-19-2023 History and physical note CHF/ACS/HRT1 HISTORY AND PHYSICAL IDENTIFYING INFORMATION PATIENT: Afsaneh Bowers ADMIT DATE: 10/20/2023 TIME OF EVALUATION: 10/20/2023 3:14 AM CHIEF COMPLAINT Left shoulder pain HISTORY OF PRESENT ILLNESS Afsaneh Bowers is a 63 y.o. male with a history of newly diagnosed CAD who presents with chest pain, positive enzymes, severe CAD. In terms of this presentation, he presented to OSH with episodes of angina. 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 During the , he noticed acute onset left shoulder pain, which resolved when he stopped running. On Sunday evening, he noticed it occurred the second time and it was worse the second game- pain was more intense and seemed to last longer before it resolved. He denies any dyspnea with these pains, denies nausea, no diaphoresis. He did feel warm on the way home the second time this occurred. As long as he was running, the pain would keep going. He states that this has never happened before. He never had a stress test done before. On Sunday he went to his family doctor, who looked at EKG and ordered a stress test. He had a friend who had some heart issues and he presented to the ED. In terms of his OSH course, his EKG showed normal sinus rhythm and an incomplete RBBB. His troponin was 146. He was started on a heparin drip and loaded with Brilinta as well as receiving full dose of aspirin on 10/18. Per OSH note, he was started on brilinta, ASA, atorvastatin, and metoprolol tartrate; however, there is no MAR to confirm timing of dosing. They did a LHC and after finding aortic root dilation, decided not to intervene. Has been on heparin gtt since . 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 He has never smoked cigarettes, does not drink alcohol. He states that his grandfather on mom's side was 1 of 9 and they all had heart problems, resulting in the of some- 2 or 3 were in their 50s when these events occurred, rest were older. Dad had heart problem before he passed, not sure of what specifically (but this sounds like it was an accident- had a specialty surgery in [place]). He denies any other health issues, no medications at home. Lives at home by himself, has 2 grand-daughters, one son Ritchie. PAST MEDICAL, SURGICAL, FAMILY, and SOCIAL HISTORY No past medical history on file. No past surgical history on file. No family history on file. Social History Socioeconomic History Marital status: Single Tobacco Use Smoking status: Never Passive exposure: Never Smokeless tobacco: Never Vaping Use Vaping status: Never Used Substance and Sexual Activity Alcohol use: Never Drug use: Never Social Determinants of Health Food Insecurity: No Food Insecurity (10/20/2023) Hunger Vital Sign Worried About Running Out of Food in the Last Year: Never true Ran Out of Food in the Last Year: Never true Transportation Needs: No Transportation Needs (10/20/2023) PRAPARE - Transportation Lack of Transportation (Medical): No Lack of Transportation (Non-Medical): No Intimate Partner Violence: Not At Risk (10/20/2023) Humiliation, Afraid, Rape, and Kick questionnaire Fear of Current or Ex-Partner: No Emotionally Abused: No Physically Abused: No Sexually Abused: No Housing Stability: Low Risk (10/20/2023) Housing Stability Vital Sign Unable to Pay for Housing in the Last Year: No Number of Places Lived in the Last Year: 1 Unstable Housing in the Last Year: No MEDICATIONS SCHEDULED: FLUIDS/DRIPS: PRNs: Acetaminophen, alum/mag hydrox.-simethicone, guaiFENesin, Melatonin, Ondansetron 4mg/2ml OR Ondansetron, Polyethylene glycol, Promethazine HCl OR Promethazine, Sodium chloride 0.9% ALLERGIES: He has no allergies on file. PRIOR TO ARRIVAL MEDS: No medications prior to admission. REVIEW OF SYSTEMS Constitutional: Negative for chills, diaphoresis, fevers. HENT: Negative for congestion, nosebleeds, sore throat. Eyes: Negative for blurred vision, double vision. Respiratory: Negative for cough, shortness of breath, orthopnea Cardiovascular: Negative for chest pain, leg swelling, palpitations Gastrointestinal: Negative for heartburn, abdominal pain, distension, nausea, vomiting. Genitourinary: negative for frequency, dysuria Musculoskeletal: Negative for joint pain, myalgias. Skin: Negative for itching, new rashes. Neurological: Negative for dizziness, tingling, sensory change, headaches. Endo/Heme/Allergies: Negative for environmental allergies. Does not bruise/bleed easily. OBJECTIVE FINDINGS Vital Signs (24hrs): Temp: [97.9 F (36.6 C)] 97.9 F (36.6 C) Pulse (Heart Rate): [54] 54 Resp Rate: [16] 16 BP: (155)/(79) 155/79 Weight: [88.9 kg (195 lb 15.8 oz)] 88.9 kg (195 lb 15.8 oz) Hemodynamic/Invasive Device Data (24 hrs): Pulmonary/Cardiac Hemodynamics Pulse (Heart Rate): 54 BSA (Calculated - sq m): 2.11 m2 Neuro ICP/CPP Monitoring MAP (mmHg): 110 mmHg Neuro ICP/CPP Monitoring 2 MAP (mmHg): 110 mmHg Ventilation/Oxygen Therapy (24hrs): Oxygen Therapy O2 Device: room air Oxygen Delivery/Consumption Hemodynamics BSA (Calculated - sq m): 2.11 m2 Lines/Drains/Airways/Wounds: Patient Lines/Drains/Airways Status Active Lines, Drains, Airways, & Wound Overview Name Placement date Placement time Site Days Peripheral IV Line - Single Lumen 10/20/23 0150 median vein (underside of arm), left 18 gauge 10/20/23 0150 -- less than 1 Peripheral IV Line - Single Lumen 10/20/23 0150 forearm, posterior, left 20 gauge 10/20/23 0150 -- less than 1 Wound Sheath Site 10/20/23 0150 Anterior;Distal;Lower;Right Arm 10/20/23 0150 Arm less than 1 Fluid Management (24hrs): -Intake/Output last 3 shifts: No intake/output data recorded. Physical Exam: General: awake, cooperative, no acute distress HEENT: PERRL, EOMI, full neck ROM, no JVD Heart: RRR, S1+S2 present, diastolic murmur auscultated throughout Lung: Equal, bilateral breath sounds; normal respiratory effort Abdomen: soft, non-tender, non-distended Ext: WWP, no edema; peripheral pulses present bilaterally Neuro: A&Ox4, QUILES Skin: dry, no rashes or ecchymoses DIAGNOSTIC RESULTS/PROCEDURES ABGs CBC WBC/Hgb/Hct/Plts: 11.40/15.5/47.4/274 (10/20 146) Chem 7(PMC) Bun/Creat/Cl/CO2/Glucose: 18/0.90/106/23/97 (10/20 146) Na/K+/Phos/Mg/Ca: 138/4.3/--/1.9/-- (10/20 146) Coags Ptt/Pt/Inr: 32.2/13.6/1.1 (10/20 146) Additional Labs No results found for: BNP No results found for: TROP No results found for: CHOLESTEROL, TRIG, HDL Imaging/ECG/Echo: EKG: Personally reviewed . Sinus with incomplete RBBB Last Echo: No results found for this or any previous visit. Last LHC: No results found for this or any previous visit from the past 3650 days. ASSESSMENT AND PLAN Afsaneh Bowers is a 63 y.o. male with a history of newly diagnosed CAD who presents with chest pain, positive enzymes, severe CAD. NSTEMI; stable vs. unstable angina CAD Patient presents with classic symptoms of stable angina with chest pain on exertion, which resolved at rest and possible progression into unstable angina with the worsening of intensity of the pain versus NSTEMI. His risk factors include age, family history- he is otherwise very active at baseline and has no other medical conditions. He was started on heparin drip, underwent Brilinta and ASA load at OSH ED and underwent LHC, which revealed dilated aortic root and therefore intervention was deferred until he was transferred to [facility]. - Will need to call in AM to obtain LHC and TTE report - Continue heparin gtt, defer further anticoagulation plan pending CABG - Cardiac surgery evaluation for CABG in the AM as well as for aortic root repair - Continue ASA, also will need to continue atorvastatin 80mg, metoprolol tartrate (convert to succinate prior to discharge)- will need to clarify medication timing in the AM as it is unclear timing of these medications at the OSH Dilated aortic root Found incidentally on LHC done above. Patient has no history of heart murmur, no history of hypertension or other valvular disease. Unclear chronicity. - As above, call in AM to obtain TTE report - Cardiac surgery consult in AM to evaluate for aortic root repair FEN: DIET NPO with meds - monitor and replace electrolytes PRN Prophylaxis: heparin gtt Code status: Full Code Overnight plan discussed with on-call fellow. Final plan to be determined on rounds with attending physician. Anika Willett MD [facility] 10-19-2023 History and physical note CHF/ACS/HRT1 HISTORY AND PHYSICAL IDENTIFYING INFORMATION PATIENT: Afsaneh Bowers ADMIT DATE: 10/20/2023 TIME OF EVALUATION: 10/20/2023 3:14 AM CHIEF COMPLAINT Left shoulder pain HISTORY OF PRESENT ILLNESS Afsaneh Bowers is a 63 y.o. male with a history of newly diagnosed CAD who presents with chest pain, positive enzymes, severe CAD. In terms of this presentation, he presented to OSH with episodes of angina. 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 During the , he noticed acute onset left shoulder pain, which resolved when he stopped running. On Sunday evening, he noticed it occurred the second time and it was worse the second game- pain was more intense and seemed to last longer before it resolved. He denies any dyspnea with these pains, denies nausea, no diaphoresis. He did feel warm on the way home the second time this occurred. As long as he was running, the pain would keep going. He states that this has never happened before. He never had a stress test done before. On Sunday he went to his family doctor, who looked at EKG and ordered a stress test. He had a friend who had some heart issues and he presented to the ED. In terms of his OSH course, his EKG showed normal sinus rhythm and an incomplete RBBB. His troponin was 146. He was started on a heparin drip and loaded with Brilinta as well as receiving full dose of aspirin on 10/18. Per OSH note, he was started on brilinta, ASA, atorvastatin, and metoprolol tartrate; however, there is no MAR to confirm timing of dosing. They did a LHC and after finding aortic root dilation, decided not to intervene. Has been on heparin gtt since . 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 He has never smoked cigarettes, does not drink alcohol. He states that his grandfather on mom's side was 1 of 9 and they all had heart problems, resulting in the of some- 2 or 3 were in their 50s when these events occurred, rest were older. Dad had heart problem before he passed, not sure of what specifically (but this sounds like it was an accident- had a specialty surgery in [place]). He denies any other health issues, no medications at home. Lives at home by himself, has 2 grand-daughters, one son Ritchie. PAST MEDICAL, SURGICAL, FAMILY, and SOCIAL HISTORY No past medical history on file. No past surgical history on file. No family history on file. Social History Socioeconomic History Marital status: Single Tobacco Use Smoking status: Never Passive exposure: Never Smokeless tobacco: Never Vaping Use Vaping status: Never Used Substance and Sexual Activity Alcohol use: Never Drug use: Never Social Determinants of Health Food Insecurity: No Food Insecurity (10/20/2023) Hunger Vital Sign Worried About Running Out of Food in the Last Year: Never true Ran Out of Food in the Last Year: Never true Transportation Needs: No Transportation Needs (10/20/2023) PRAPARE - Transportation Lack of Transportation (Medical): No Lack of Transportation (Non-Medical): No Intimate Partner Violence: Not At Risk (10/20/2023) Humiliation, Afraid, Rape, and Kick questionnaire Fear of Current or Ex-Partner: No Emotionally Abused: No Physically Abused: No Sexually Abused: No Housing Stability: Low Risk (10/20/2023) Housing Stability Vital Sign Unable to Pay for Housing in the Last Year: No Number of Places Lived in the Last Year: 1 Unstable Housing in the Last Year: No MEDICATIONS SCHEDULED: FLUIDS/DRIPS: PRNs: Acetaminophen, alum/mag hydrox.-simethicone, guaiFENesin, Melatonin, Ondansetron 4mg/2ml OR Ondansetron, Polyethylene glycol, Promethazine HCl OR Promethazine, Sodium chloride 0.9% ALLERGIES: He has no allergies on file. PRIOR TO ARRIVAL MEDS: No medications prior to admission. REVIEW OF SYSTEMS Constitutional: Negative for chills, diaphoresis, fevers. HENT: Negative for congestion, nosebleeds, sore throat. Eyes: Negative for blurred vision, double vision. Respiratory: Negative for cough, shortness of breath, orthopnea Cardiovascular: Negative for chest pain, leg swelling, palpitations Gastrointestinal: Negative for heartburn, abdominal pain, distension, nausea, vomiting. Genitourinary: negative for frequency, dysuria Musculoskeletal: Negative for joint pain, myalgias. Skin: Negative for itching, new rashes. Neurological: Negative for dizziness, tingling, sensory change, headaches. Endo/Heme/Allergies: Negative for environmental allergies. Does not bruise/bleed easily. OBJECTIVE FINDINGS Vital Signs (24hrs): Temp: [97.9 F (36.6 C)] 97.9 F (36.6 C) Pulse (Heart Rate): [54] 54 Resp Rate: [16] 16 BP: (155)/(79) 155/79 Weight: [88.9 kg (195 lb 15.8 oz)] 88.9 kg (195 lb 15.8 oz) Hemodynamic/Invasive Device Data (24 hrs): Pulmonary/Cardiac Hemodynamics Pulse (Heart Rate): 54 BSA (Calculated - sq m): 2.11 m2 Neuro ICP/CPP Monitoring MAP (mmHg): 110 mmHg Neuro ICP/CPP Monitoring 2 MAP (mmHg): 110 mmHg Ventilation/Oxygen Therapy (24hrs): Oxygen Therapy O2 Device: room air Oxygen Delivery/Consumption Hemodynamics BSA (Calculated - sq m): 2.11 m2 Lines/Drains/Airways/Wounds: Patient Lines/Drains/Airways Status Active Lines, Drains, Airways, & Wound Overview Name Placement date Placement time Site Days Peripheral IV Line - Single Lumen 10/20/23 0150 median vein (underside of arm), left 18 gauge 10/20/23 0150 -- less than 1 Peripheral IV Line - Single Lumen 10/20/23 0150 forearm, posterior, left 20 gauge 10/20/23 0150 -- less than 1 Wound Sheath Site 10/20/23 0150 Anterior;Distal;Lower;Right Arm 10/20/23 0150 Arm less than 1 Fluid Management (24hrs): -Intake/Output last 3 shifts: No intake/output data recorded. Physical Exam: General: awake, cooperative, no acute distress HEENT: PERRL, EOMI, full neck ROM, no JVD Heart: RRR, S1+S2 present, diastolic murmur auscultated throughout Lung: Equal, bilateral breath sounds; normal respiratory effort Abdomen: soft, non-tender, non-distended Ext: WWP, no edema; peripheral pulses present bilaterally Neuro: A&Ox4, QUILES Skin: dry, no rashes or ecchymoses DIAGNOSTIC RESULTS/PROCEDURES ABGs CBC WBC/Hgb/Hct/Plts: 11.40/15.5/47.4/274 (10/20 146) Chem 7(PMC) Bun/Creat/Cl/CO2/Glucose: 18/0.90/106/23/97 (10/20 146) Na/K+/Phos/Mg/Ca: 138/4.3/--/1.9/-- (10/20 146) Coags Ptt/Pt/Inr: 32.2/13.6/1.1 (10/20 146) Additional Labs No results found for: BNP No results found for: TROP No results found for: CHOLESTEROL, TRIG, HDL Imaging/ECG/Echo: EKG: Personally reviewed . Sinus with incomplete RBBB Last Echo: No results found for this or any previous visit. Last LHC: No results found for this or any previous visit from the past 3650 days. ASSESSMENT AND PLAN Afsaneh Bowers is a 63 y.o. male with a history of newly diagnosed CAD who presents with chest pain, positive enzymes, severe CAD. NSTEMI; stable vs. unstable angina CAD Patient presents with classic symptoms of stable angina with chest pain on exertion, which resolved at rest and possible progression into unstable angina with the worsening of intensity of the pain versus NSTEMI. His risk factors include age, family history- he is otherwise very active at baseline and has no other medical conditions. He was started on heparin drip, underwent Brilinta and ASA load at OSH ED and underwent LHC, which revealed dilated aortic root and therefore intervention was deferred until he was transferred to [facility]. - Will need to call in AM to obtain LHC and TTE report - Continue heparin gtt, defer further anticoagulation plan pending CABG - Cardiac surgery evaluation for CABG in the AM as well as for aortic root repair - Continue ASA, also will need to continue atorvastatin 80mg, metoprolol tartrate (convert to succinate prior to discharge)- will need to clarify medication timing in the AM as it is unclear timing of these medications at the OSH Dilated aortic root Found incidentally on LHC done above. Patient has no history of heart murmur, no history of hypertension or other valvular disease. Unclear chronicity. - As above, call in AM to obtain TTE report - Cardiac surgery consult in AM to evaluate for aortic root repair FEN: DIET NPO with meds - monitor and replace electrolytes PRN Prophylaxis: heparin gtt Code status: Full Code Overnight plan discussed with on-call fellow. Final plan to be determined on rounds with attending physician. Anika Willett MD documented in this encounter [facility] 10-19-2023 Progress note Note Date/Time October 19, 2023 7:55am [facility] Medical Records Department [address] [place] [address] Progress Note - Cardiology 10/19/23 0745 MR#: [id number] Acct: [id number] Name: AFSANEH BOWERS Rep #:[id number] : 1960 63 From: Richard Hogan MD PCP: Dr. Chilango Welsh MD Status:AD M IN Location: [facility] [id number] Subjective Subjective Patient is resting comfortably recumbent position in bed. He denies any recurrence of his left shoulder discomfort. He reports that he rested fairly well. Telemetry showed his heart rate with the Lopressor dropped into the 45 to50 bpm range. A preliminary look at the echo which was being done at the bedside revealed a dilated aorta measuring approximately 5 cm and at least 2+ aortic insufficiency. This will need to be further evaluated pending the results of the diagnostic catheterization. His enzymes were essentially unchanged and around 135. Objective Data Vital Signs: Vital Signs Temp Pulse Resp BP Pulse Ox O2 Del Method 97.5 F L 50 L 18 127/87 H 95 Room Air 10/19/23 06:12 10/19/23 07:27 10/19/23 06:12 10/19/23 06:12 10/19/23 06:12 10/19/23 06:12 Oxygen Delivery Method Room Air Weight: 198 lb 13.711 oz Body Mass Index (BMI) 26.9 Intake & Output: Intake and Output for Last 24 Hours 10/17/23 10/18/23 10/19/23 23:59 23:59 23:59 Intake Total 88.5 / 338.5 347.17 / 347.17 Balance 88.5 / 338.5 347.17 / 347.17 Lab / Micro Data Attestation: I reviewed the patient's lab results. 10/19/23 03:09 10/19/23 03:09 Labs: Laboratory Results - last 24 hr 10/18/23 12:53: WBC 9.6, RBC 5.32, Hgb 15.6, Hct 46.3, MCV 87.0, MCH 29.3, MCHC 33.7, RDW Std Deviation 40.3, RDW Coeff of Edwardo 12.9, Plt Count 283, MPV 9.8, Immature Gran % (Auto) 0.300, Neut % (Auto) 74.2 H, Lymph % (Auto) 14.4 L, [place] % (Auto) 7.9, Eos % (Auto) 2.6, Baso % (Auto) 0.6, Absolute Neuts (auto) 7.1, Absolute Lymphs (auto) 1.38, Nucleated RBC % 0, PT 14.2, INR 1.1, APTT 27.4, D-Dimer Quant (PE/DVT) 0.34, Sodium 144, Potassium 3.9, Chloride 113 H, Carbon Dioxide 27.0, Anion Gap 4 L, BUN 19 H, Creatinine 0.98, Estim Creat Clear Calc 83.58, Est GFR (MDRD) Af Amer 99, Est GFR (MDRD) Non-Af 82, BUN/Creatinine Ratio19.3, Glucose 120 H, Hemoglobin A1c 5.5, Calcium 8.8, Troponin I High Sens 136 H* 10/18/23 15:59: Troponin I High Sens 132 H* 10/18/23 16:33: APTT 95.2 H* 10/18/23 18:43: Troponin I High Sens 136 H* 10/18/23 21:06: APTT 55.1 H 10/19/23 03:09: WBC 10.3, RBC 5.02, Hgb 14.4, Hct 43.5, MCV 86.7, MCH 28.7, MCHC33.1, RDW Std Deviation 40.3, RDW Coeff of Edwardo 12.9, Plt Count 252, MPV 9.3, Immature Gran % (Auto) 0.400, Neut % (Auto) 70.2 H, Lymph % (Auto) 16.8 L, [place] % (Auto) 7.9, Eos % (Auto) 4.1, Baso % (Auto) 0.6, Absolute Neuts (auto) 7.2, Absolute Lymphs (auto) 1.73, Nucleated RBC % 0, APTT 56.9 H, Sodium 140, Potassium 3.9, Chloride 110 H, Carbon Dioxide 26.0, Anion Gap 4 L, BUN 17, Creatinine 0.87, Estim Creat Clear Calc 94.15, Est GFR (MDRD) Af Amer 114, Est GFR (MDRD) Non-Af 94, BUN/Creatinine Ratio 19.5, Glucose 107 H, Calcium 8.5, Phosphorus 2.9, Magnesium 2.0, Total Bilirubin 0.90, AST 15, ALT 29, Alkaline Phosphatase 52, Total Protein 6.1 L, Albumin 3.3, Globulin 2.8, Albumin/GlobulinRatio 1.2, Triglycerides 59, Cholesterol 122, LDL Cholesterol 64, VLDL Cholesterol 12, HDL Cholesterol 46, TSH 0.51 Rhythm Strip Rhythm Strip: Sinus Rhythm Rate: 55 Cardiology Labs/Tests 10/18/23 12:53: WBC 9.6, RBC 5.32, Hgb 15.6, Hct 46.3, MCV 87.0, MCH 29.3, MCHC 33.7, Plt Count 283, MPV 9.8, Immature Gran % (Auto) 0.300, Neut % (Auto) 74.2 H, Lymph % (Auto) 14.4 L, [place] % (Auto) 7.9, Eos % (Auto) 2.6, Baso % (Auto) 0.6,Absolute Neuts (auto) 7.1, Nucleated RBC % 0, PT 14.2, INR 1.1, APTT 27.4, D-Dimer Quant (PE/DVT) 0.34, Sodium 144, Potassium 3.9, Chloride 113 H, Carbon Dioxide 27.0, Anion Gap 4 L, BUN 19 H, Creatinine 0.98, Est GFR (MDRD) Af Amer 99, Est GFR (MDRD) Non-Af 82, BUN/Creatinine Ratio 19.3, Glucose 120 H, Hemoglobin A1c 5.5, Calcium 8.8 10/18/23 16:33: APTT 95.2 H* 10/18/23 21:06: APTT 55.1 H 02/16/24 03:09: WBC 10.3, RBC 5.02, Hgb 14.4, Hct 43.5, MCV 86.7, MCH 28.7, MCHC33.1, Plt Count 252, MPV 9.3, Immature Gran % (Auto) 0.400, Neut % (Auto) 70.2 H, Lymph % (Auto) 16.8 L, [place] % (Auto) 7.9, Eos % (Auto) 4.1, Baso % (Auto) 0.6,Absolute Neuts (auto) 7.2, Nucleated RBC % 0, APTT 56.9 H, Sodium 140, Potassium3.9, Chloride 110 H, Carbon Dioxide 26.0, Anion Gap 4 L, BUN 17, Creatinine 0.87, Est GFR (MDRD) Af Amer 114, Est GFR (MDRD) Non-Af 94, BUN/Creatinine Ratio19.5, Glucose 107 H, Calcium 8.5, Phosphorus 2.9, Magnesium 2.0, Total Bilirubin0.90, Triglycerides 59, Cholesterol 122, LDL Cholesterol 64, VLDL Cholesterol 12, HDL Cholesterol 46 Rhythm: EKG: ECHO: Stress Test: Cardiac Cath: PCI: CT Surgery: Holter monitor: EPS: PPM: CXR: Chest CT Scan: Physical Exam Const oriented x3 HEENT normocephalic Neck no JVD Chest inspection of chest normal Resp normal respiratory effort and clear to auscultation bilaterally Cardio Rate: bradycardia Rhythm: regular rhythm Heart Sounds: S1 normal, S2 normal and murmur diastolic II/ blowing holo left sternal border; Negative for click or gallop GI normal to inspection, nondistended, normoactive bowel sounds Extremity no pedal edema Skin no rashes or lesions noted Neuro Neuro Narrative: Alert and oriented x 3 Psych mental status grossly normal Assessment & Plan Assessment/Plan (1) Non-ST elevated myocardial infarction: PLAN: The patient's enzymes essentially remained unchanged on the delta troponin. He has had no recurrence of his left shoulder discomfort. The patient is scheduled for left heart catheterization at 10 AM today. His heart rate was down in the 45 bpm range last evening after 12.5 mg of Lopressor. Blood pressure is adequately controlled at 125 systolic. (2) Aortic valve regurgitation: QUALIFIERS: Cardiac valve disease etiology: nonrheumatic Qualified Code(s): I35.1 - Nonrheumatic aortic (valve) insufficiency PLAN: The quick look at the echocardiogram pulmonary only shows aortic valve to have at least 2+ aortic insufficiency and the aorta is 5 cm measurement in diameter. The patient has no prior history of hypertension there is no family history of Marfan's he is 6 feet tall and thin and does have a history of some issues with visual changes that were corrected by cataract removal in his 20s. He denies any issues with the lens in the eye but this raises a suspicion for Marfan's. Further evaluation with CT angiography will be performed after the diagnostic catheterization is obtained. Will then refer him for evaluation by CT surgery. PLAN: Plan 1. Left heart catheterization today. 2. Obtain formal echo report. 3. Pending outcome of the catheterization will reevaluate the aorta. Would schedule CT angiography either later today or within the next few days. Charges/Coding Visit Charges Inpatient E&M: 24522 Subs Hosp 10/19/23 0754 <Electronically signed by Richard Hogan MD> Cosigner Signature (if applicable): CC: ~ Signed [facility] Work Phone: [phone]) 527-447702-15-2024 Consult note Author Richard Hogan [facility] October 18, 2023 3:56pm Note Date/Time October 18, 2023 3:29pm [facility] Medical Records Department [address] [place] [id number] Consultation - Cardiology 10/18/23 1529 MR#: [id number] Acct: [id number] Name: AFSANEH BOWERS Rep #:[id number] : 1960 63 From: Richard Hogan MD PCP: Dr. 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 His EKG does not show any Q waves and it does not show any acute ongoing ischemic changes. The patient has few risk factors. The family history is remote and not in a first-degree relative. His glucose was elevated at 120 and I am uncertain if this is fasting or not. Hemoglobin A1c will be evaluated. Lipids will be evaluated. And his blood pressure is adequately controlled during this emergency department stay. The patient has never smoked. It is my opinion that this represents an acute ischemic event last Sunday evening and he should proceed with left heart catheterization. The patient be loaded with Brilinta and aspirin, atorvastatin 80 mg daily will be instituted, he will be placed on low-dose beta-jaime therapy with a heart rate of 60. And made n.p.o. after midnight for left heart catheterization tomorrow morning. Patient will also be started on heparin and a 2D echocardiogram be done to evaluate his LV function and valvular heart disease. (2) Hyperglycemia: PLAN: Check a hemoglobin A1c. (3) Aortic valve regurgitation: QUALIFIERS: Cardiac valve disease etiology: nonrheumatic Qualified Code(s): I35.1 - Nonrheumatic aortic (valve) insufficiency PLAN: The patient has a diastolic murmur heard best along the right sternal and left sternal borders consistent with aortic insufficiency. A 2D echocardiogram is been ordered to evaluate the LV function and valvular heart disease. PLAN: Plan 1. Start Brilinta aspirin atorvastatin and metoprolol tartrate for acute ischemic syndrome therapy. Heparin will be instituted as well. 2. Cardiac catheterization tomorrow morning 3. 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 The first event occurred last Sunday evening when he was refereeing a game and in the fourth quarter he noted some pain in his left shoulder radiating down his left arm that made it heavy and hard to lift. He thought this may have been related to his previous left shoulder surgery. It resolved when he stopped running in the fourth quarter. 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 He was discussing 1 of one of his fellow refreeze and they suggested he come to be evaluated. The patient is EKG shows a normal sinus rhythm occasional PVCs and an incompleteright bundle branch block but no significant ST or T wave changes consistent with an acute ischemic event. However his troponin was positive at 146 which isnow 48 hours after his most intense event. The patient's blood work otherwise shows an elevated nonfasting glucose his BUN and creatinine are within normal limits with a creatinine clearance above 60 we do not have lipids on him. The patient's cardiac risk factors are positive for questionable family history on his mother side but not in an immediate relative he has no history of diabetes he is not hypertensive does not have a history of hyperlipidemia and is never smoked. Currently the patient is resting comfortably [facility] He denies any complications or history of cardiac events in the past with 2 surgeries he has had 1 on his knee and 1 on his shoulder. [facility] Medical History no medical history Home Medications NK 08/12/20 [History Last Taken Unknown] Allergy/AdvReac Type Severity Reaction Status Date / Time No Known Allergies Allergy Verified 10/18/23 12:32 Family History Other CAD (coronary artery disease) Heart disease Hypertension Surgical History History of arthroscopy of left knee History of arthroscopy of left shoulder Surgical History no surgical history Social History household members: spouse and none housing: house Smoking Status: Never smoker alcohol intake: current alcohol intake frequency: a few times a month substance use type: does not use what type of physical activity do you participate in: running ROS Constitutional Constitutional: Reports as per HPI Eyes Eyes: Reports systems reviewed and no addt'l complaints, except as documented ENT HEENT: Reports systems reviewed and no addt'l complaints, except as documented Cardiovascular Cardiovascular: Reports as per HPI Respiratory/Chest Respiratory/Chest: Reports as per HPI Gastrointestinal Gastrointestinal: Reports systems reviewed and no addt'l complaints, except as documented Genitourinary Genitourinary: Reports systems reviewed and no addt'l complaints, except as documented Musculoskeletal Musculoskeletal: Reports as per HPI Integumentary Integumentary: Reports systems reviewed and no addt'l complaints, except as documented Neurologic Neurologic: Reports systems reviewed and no addt'l complaints, except as documented Psychiatric Psychiatric: Reports systems reviewed and no addt'l complaints, except as documented Endocrine Endocrinology: Reports systems reviewed and no addt'l complaints, except as documented Hematologic/Lymphatic Hematologic/Lymphatic: Reports systems reviewed and no addt'l complaints, exceptas documented Allergic/Immunologic Allergic/Immunologic: Reports systems reviewed and no addt'l complaints, except as documented Physical Exam Const oriented x3, no apparent distress and healthy appearing HEENT normocephalic Eyes EOMs intact bilaterally Neck no JVD and no carotid bruits Chest inspection of chest normal Resp normal respiratory effort and clear to auscultation bilaterally Cardio regular rate, regular rhythm, S1 normal heart sound, S2 normal heart sound, no rub and no gallops Heart Sounds: murmur diastolic II/ crescendo-decrescendo right sternal border Bruits: Negative for femoral bruit Peripheral Pulses: pulses 2+ throughout GI normal to inspection, nondistended, normoactive bowel sounds Extremity no pedal edema Skin no rashes or lesions noted Neuro Neuro Narrative: Alert and oriented x 3 Psych mental status grossly normal Risk Stratification Risk Stratification Applicable: Yes Age >/= 65: No >/= 3 CAD Risk Factors (HTN, HLD, DM, family hx of CAD, or current smoker): No Aspirin Use in the Past 7 Days: No Severe Angina (>/= episodes in 24 hours): Yes EKG ST Changes >/= 0.5mm: No Positive Cardiac Marker: Yes ELOISA Risk Stratification Score: 2 ELOIAS % Risk: 8% Risk Charges/Coding Visit Charges Inpatient E&M: 41013 Init Hosp L3 Objective Data Vital Signs: Vital Signs Temp Pulse Resp BP Pulse Ox O2 Del Method 97.6 F L 62 22 H 135/88 H 96 Room Air 10/18/23 14:23 10/18/23 15:08 10/18/23 15:08 10/18/23 15:08 10/18/23 15:08 10/18/23 15:08 Oxygen Delivery Method Room Air Weight: 202 lb 13.204 oz Body Mass Index (BMI) 27.5 Lab / Micro Data Attestation: I reviewed the patient's lab results. 10/18/23 12:53 10/18/23 12:53 Labs: Laboratory Results - last 24 hr 10/18/23 12:53: WBC 9.6, RBC 5.32, Hgb 15.6, Hct 46.3, MCV 87.0, MCH 29.3, MCHC 33.7, RDW Std Deviation 40.3, RDW Coeff of Edwardo 12.9, Plt Count 283, MPV 9.8, Immature Gran % (Auto) 0.300, Neut % (Auto) 74.2 H, Lymph % (Auto) 14.4 L, [place] % (Auto) 7.9, Eos % (Auto) 2.6, Baso % (Auto) 0.6, Absolute Neuts (auto) 7.1, Absolute Lymphs (auto) 1.38, Nucleated RBC % 0, PT 14.2, INR 1.1, APTT 27.4, D-Dimer Quant (PE/DVT) 0.34, Sodium 144, Potassium 3.9, Chloride 113 H, Carbon Dioxide 27.0, Anion Gap 4 L, BUN 19 H, Creatinine 0.98, Estim Creat Clear Calc 83.58, Est GFR (MDRD) Af Amer 99, Est GFR (MDRD) Non-Af 82, BUN/Creatinine Ratio19.3, Glucose 120 H, Hemoglobin A1c 5.5, Calcium 8.8, Troponin I High Sens 136 H* Rhythm Strip Rhythm Strip: Sinus Rhythm Rate: 60 Ectopy: PVC(s) Cardiology Labs/Tests 10/18/23 12:53: WBC 9.6, RBC 5.32, Hgb 15.6, Hct 46.3, MCV 87.0, MCH 29.3, MCHC 33.7, Plt Count 283, MPV 9.8, Immature Gran % (Auto) 0.300, Neut % (Auto) 74.2 H, Lymph % (Auto) 14.4 L, [place] % (Auto) 7.9, Eos % (Auto) 2.6, Baso % (Auto) 0.6,Absolute Neuts (auto) 7.1, Nucleated RBC % 0, PT 14.2, INR 1.1, APTT 27.4, D-Dimer Quant (PE/DVT) 0.34, Sodium 144, Potassium 3.9, Chloride 113 H, Carbon Dioxide 27.0, Anion Gap 4 L, BUN 19 H, Creatinine 0.98, Est GFR (MDRD) Af Amer 99, Est GFR (MDRD) Non-Af 82, BUN/Creatinine Ratio 19.3, Glucose 120 H, Hemoglobin A1c 5.5, Calcium 8.8 Rhythm: EKG: ECHO: Stress Test: Cardiac Cath: PCI: CT Surgery: Holter monitor: EPS: PPM: CXR: Chest CT Scan: EKG Initial EKG: Attestation: I personally reviewed and interpreted this EKG as follows: Interpretation: Normal sinus rhythm with incomplete right bundle branch block no evidence of significant ST-T wave changes. Occasional PVC 10/18/23 1556 <Electronically signed by Richard Hogan MD> Cosigner Signature (if applicable): CC: Dr. Chilango Welsh MD; Dr. Alfred Gutierrez MD~ Signed [facility] Work Phone: [phone]) 749-725502-15-2024 History and physical note Author Nora Rivera [facility] October 18, 2023 3:21pm Note Date/Time October 18, 2023 2:36pm [facility] Medical Records Department [address] [place] [id number] H&P Exam - Hospitalist 10/18/23 1431 MR#: [id number] Acct: [id number] Name: AFSANEH BOWERS Rep #:[id number] : 1960 63 From: Nora Rivera DO PCP: Dr. Chilango Welsh MD Status:AD M IN Location: [facility] [id number] HPI - General General Date of Admission: 10/18/23 Date of Service: 10/18/23 Chief Complaint: Chest Pain HPI Narrative AFSANEH BOWERS, is a 63 M who presented to the emergency department at [facility] on 10/18/2023 due to chest pain. 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 He noted that his symptoms resolved when he stopped running. 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 On Sunday he left the game as he was having exertional chest pain and dyspnea withno other associated symptoms such as diaphoresis or nausea vomiting. He does have a strong family history of cardiac disease on his maternal side but none before age 55. He has no specific cardiac risk factors and he takes no chronic medications at home. He does not smoke. 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 On presentation his temperature was 97.3, heart rate was 70, initial blood pressure was 144/61 with repeat at 117/82, respiratory rate has been anywhere between 18 and 27 and oxygen saturations are 97% on room air. His CBC is unremarkable other than mild left shift with a 74.2% neutrophilia. His chemistry panel was essentially unremarkable other than hyperglycemia with a blood sugar of 120. He does not have a known history of diabetes and this is nonfasting. His initial troponin was 136. EKG showed normal sinus rhythm with normal intervals and no ST-T wave changes concerning for acute ischemia. He didhave a PVC. Case was discussed with cardiology given troponin elevation and he was started on heparin drip and loaded with Brilinta. He also received a full dose aspirin emergency department. Plan is for cardiac catheterization tomorrow. [facility] Medical History no medical history no medical history Home Medications NK 08/12/20 [History Last Taken Unknown] Allergy/AdvReac Type Severity Reaction Status Date / Time No Known Allergies Allergy Verified 10/18/23 12:32 Family History (Updated 10/18/23 @ 15:[address] Nora Rivera DO) Other CAD (coronary artery disease) Heart disease Hypertension Surgical History (Updated 10/18/23 @ 15:[address] Nora Rivera DO) History of arthroscopy of left knee History of arthroscopy of left shoulder Surgical History no surgical history Social History (Updated 10/18/23 @ 15:[address] Nora Rivera DO) household members: spouse and none housing: house Smoking Status: Never smoker alcohol intake: current alcohol intake frequency: a few times a month substance use type: does not use what type of physical activity do you participate in: running ROS Constitutional Constitutional: Denies anorexia, change in weight, chills, fatigue, fever(s), malaise, night sweats, weakness or other Eyes Eyes: Denies blurry vision, change in eye color, change in vision, discharge from eye(s), double vision, erythema, eye pain, loss of vision or other ENT HEENT: Denies abnormal hearing, dysphagia, ear pain, epistaxis, headache(s), hearing loss, nasal congestion, nasal discharge, post nasal drip, sinus pressure, sore throat or other Cardiovascular Cardiovascular: Denies chest pain, claudication, dyspnea on exertion, edema, lightheadedness, orthopnea, palpitations, paroxysmal nocturnal dyspnea, rapid heart rate, syncope or other Respiratory/Chest Respiratory/Chest: Denies cough, dyspnea, excessive phlegm production, hemoptysis, productive cough, shortness of breath at rest, shortness of breath with exertion, wheezing or other Gastrointestinal Gastrointestinal: Denies abdominal pain, coffee ground emesis, constipation, diarrhea, dyspepsia, hematemesis, hematochezia, loose stools, melena, nausea, vomiting or other Genitourinary Genitourinary: Denies burning urination, difficulty urinating, dysuria, hematuria, nocturia, urinary frequency, urinary hesitancy, urinary incontinence,urinary urgency or other Musculoskeletal Musculoskeletal: Denies arthralgias, back pain, joint pain, joint stiffness, joint swelling, myalgias, neck pain or other Neurologic Neurologic: Denies abnormal gait, abnormal speech, confusion, disequilibrium, dizziness, focal weakness, headache(s), numbness, paresthesias, seizure-like activity, seizures, syncope, tingling, tremor(s) or other Psychiatric Psychiatric: Denies anxiety, depression, homicidal ideation, suicidal ideation or other Endocrine Endocrinology: Denies change in body appearance, cold intolerance, excessive sweating, heat intolerance, polydipsia, polyuria or other Hematologic/Lymphatic Hematologic/Lymphatic: Denies anemia, easy bleeding, easy bruising, lymphadenopathy or other Allergic/Immunologic Allergic/Immunologic: Denies rhinitis, hives, eczemia, asthma or other Vital Signs Vital Signs Vital Signs: 10/18/23 12:32 10/18/23 12:31 10/18/23 12:31 Temperature 97.3 F L 97.8 F Temperature Source Temporal Temporal Pulse Rate 70 73 Respiratory Rate 18 16 Respiratory Effort Normal Blood Pressure 144/61 H 129/75 H Blood Pressure Mean 88 93 Pulse Ox 97 96 Oxygen Delivery Method Room Air Room Air 10/18/23 14:08 10/18/23 14:23 Temperature 97.6 F L Temperature Source Pulse Rate 61 63 Respiratory Rate 27 H 22 H Respiratory Effort Blood Pressure 111/75 117/82 H Blood Pressure Mean 87 93 Pulse Ox 95 95 Oxygen Delivery Method Room Air Weight Weight: 92 kg Body Mass Index (BMI) 27.5 Physical Exam Const alert, oriented x3, no apparent distress, average body habitus, healthy appearing and well nourished Constitutional Narrative: Upper middle-aged, pleasant, white male, sitting up in bed, 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, patient appears nontoxic General Appearance: cooperative HEENT normocephalic, head/scalp atraumatic, hearing grossly normal bilaterally and moist oral mucous membranes HEENT Narrative: Mallampati 2, no thrush Eyes PERRL, EOMs intact bilaterally and conjunctivae normal Eyes Narrative: No scleral icterus Neck no lymphadenopathy and supple Neck Narrative: Trachea midline, no thyroid enlargement Resp normal respiratory effort, no retractions, no use of accessory muscles and clearto auscultation bilaterally Auscultation: Negative for rales, rhonchi or wheezes Cardio regular rate, regular rhythm, S1 normal heart sound, S2 normal heart sound, no rub, no gallops and no clicks Cardio Narrative: 2 out of 6 diastolic murmur GI normal to inspection, nondistended, normoactive bowel sounds, soft to palpation and non-tender Extremity no clubbing, cyanosis or edema Extremity Narrative: Pedal pulses are 2+ bilaterally, radial pulses are 2+ bilaterally Neuro oriented x3, CN's II-XII intact bilaterally, moves all extremities and no focal motor deficits Speech: speech normal Psych affect normal Psych Narrative: Eye contact is good, patient interacts appropriately Results Lab / Micro Data 10/18/23 12:53 10/18/23 12:53 Labs: Laboratory Results - last 24 hr 10/18/23 12:53: WBC 9.6, RBC 5.32, Hgb 15.6, Hct 46.3, MCV 87.0, MCH 29.3, MCHC 33.7, RDW Std Deviation 40.3, RDW Coeff of Edwardo 12.9, Plt Count 283, MPV 9.8, Immature Gran % (Auto) 0.300, Neut % (Auto) 74.2 H, Lymph % (Auto) 14.4 L, [place] % (Auto) 7.9, Eos % (Auto) 2.6, Baso % (Auto) 0.6, Absolute Neuts (auto) 7.1, Absolute Lymphs (auto) 1.38, Nucleated RBC % 0, Sodium 144, Potassium 3.9, Chloride 113 H, Carbon Dioxide 27.0, Anion Gap 4 L, BUN 19 H, Creatinine 0.98, Estim Creat Clear Calc 83.58, Est GFR (MDRD) Af Amer 99, Est GFR (MDRD) Non-Af 82, BUN/Creatinine Ratio 19.3, Glucose 120 H, Calcium 8.8, Troponin I High Sens 136 H* Assessment & Plan Assessment/Plan (1) Non-ST elevated myocardial infarction: (2) Hyperglycemia: PLAN: Plan NSTEMI -Suspect type I -Plan is for cardiac catheterization per discussion with cardiology -To be done on 10/19/2023 -Cycle cardiac enzymes -Continue heparin drip -Received Brilinta load in emergency department and will order for 90 mg tomorrow morning -Start metoprolol 12.5 mg p.o. twice daily -Start atorvastatin 80 mg daily -Per discussion with cardiology they would like him discharged on rosuvastatin 40 mg daily -Check lipids -Check hemoglobin A1c--> nonfasting blood sugar on admission was 120 -N.p.o. after midnight -Will run IV fluids at 75 cc/h with LR after midnight -Echocardiogram was ordered and pending -Cardiology consultation--> discussed case with Dr. Hogan Hyperglycemia -This is a nonfasting blood sugar and was 120 -Will check hemoglobin A1c to check for impaired glucose control Cardiac murmur-diastolic -Check echocardiogram DVT prophylaxis -Patient is on a heparin drip CODE STATUS -Full code is verified on admission Charges/Coding Visit Charges Inpatient E&M: 05319 Init Hosp L2 10/18/23 1521 <Electronically signed by Nora Rivera DO> Cosigner Signature (if applicable): CC: Dr. Chilango Welsh MD; Dr. Nora Rivera DO~ Signed [facility] Work Phone: 1(750) 563-342902-15-2024 Discharge summary Author Mathew Gonzalez [facility] October 18, 2023 2:32pm Note Date/Time October 18, 2023 1:22pm [facility] Medical Records Department [address] [place] [address] Emergency Department Summary 10/18/23 MR#: [id number] Acct: [id number] Name: KISHOREAFSANEH MIGUEL Rep #:[id number] : 1960 63 From: Mathew Gonzalez MD PCP: Dr. Chilango Welsh MD Status:RE G ER Location: ED HPI History of Present Illness Chief Complaint: Chest Pain Detail of Chief Complaint: Chest tightness and fullness radiating to the left upper extremity with exe Informant: patient Onset/Context/Timing Onset: Days (Detailed HPI narrative) Activity at onset: sudden Timing: Intermittent Quality: Positive for Tightness and - (Fullness) Location: Substernal and Left Parasternal Current Severity: Gone Maximum Severity: Severe (On Sunday patient) Worsened By: Exertion; Not Worsened By Movement of Arm, Movement of Torso, Eating, Palpation, Breathing or Coughing Relieved By: Rest Associated Symptoms: Positive for Dyspnea; Negative for Nausea, Vomiting, Diaphoresis, Cough, Fever, Lightheadedness, Acid Reflux or Palpitations Narrative Narrative: Patient is a healthy active 63-year-old male who does not smoke. There is multiple family's maternal side of have cardiac disease. No one before the age of 55. He has no risk factors for cardiac disease. 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 This occurred mostly withCOVID again. He states when the reason he got the discomfort and resolved once he stopped running. He left a game on Sunday had no symptoms. He left a gameon Sunday and was having exertional chest discomfort with dyspnea. He had no other associated symptoms. He denies history of reflux. He denies intolerance to greasy or fried foods. He denies black or maroon-colored stool. Prior Similar Symptoms: No Recent Illness/Hospitalization: No CVD Risk Factors: Negative for Hypertension, Diabetes, Hypercholesterolemia, Family History 1' </=55 or Smoking PE Risk Factors: Negative for Recent Travel/Surgery, Recent Immobilization, Prior DVT or PE, Cancer or OCP + Smoking + >/=35 TAD Risk Factors: Negative for Marfan's Syndrome, Hypertension or Family History PFSH PFSH Medical History no medical history no medical history Home Medications NK 08/12/20 [History Last Taken Unknown] Allergy/AdvReac Type Severity Reaction Status Date / Time No Known Allergies Allergy Verified 10/18/23 12:32 Surgical History no surgical history no surgical history Social History (Updated 10/18/23 @ 13:[address] Mathew Gonzalez MD) household members: none Smoking Status: Never smoker ROS ROS ED Constitutional Constitutional ED: Denies chills, fever(s) or subjective Eyes Eyes: Reports none ENT ENT ED: Denies ear pain, rhinorrhea or sore throat Cardiovascular Cardiovascular: Reports as per HPI; Denies orthopnea or paroxysmal nocturnal dyspnea Respiratory/Chest Respiratory/Chest: Reports dyspnea on exertion; Denies cough, dyspnea, orthopnea, paroxysmal nocturnal dyspnea or sputum Gastrointestinal Gastrointestinal: Denies abdominal pain, melena, nausea or vomiting Musculoskeletal Musculoskeletal: Denies arthralgias, back pain, myalgias or neck pain Integumentary Denies rash Neurologic Neurologic: Denies paresthesias or weakness Hematologic/Lymphatic Hematologic/Lymphatic: Denies easy bleeding or easy bruising EXAM Physical Exam Const Vital Signs: 10/18/23 12:32 10/18/23 12:31 10/18/23 12:31 Temperature 97.3 F L 97.8 F Temperature Source Temporal Temporal Pulse Rate 70 73 Respiratory Rate 18 16 Respiratory Effort Normal Blood Pressure 144/61 H 129/75 H Blood Pressure Mean 88 93 Pulse Ox 97 96 Oxygen Delivery Method Room Air Room Air 10/18/23 14:08 10/18/23 14:23 Temperature 97.6 F L Temperature Source Pulse Rate 61 63 Respiratory Rate 27 H 22 H Respiratory Effort Blood Pressure 111/75 117/82 H Blood Pressure Mean 87 93 Pulse Ox 95 95 Oxygen Delivery Method Room Air Positive well nourished and well developed General Appearance ED: well developed and NAD; Negative for pallor HEENT Reports moist mucous membranes normocephalic and atraumatic Eyes PERRL and EOMs intact bilaterally General Eye ED: Negative for pale conjunctiva or scleral icterus Neck no lymphadenopathy, supple and no JVD Resp normal respiratory effort and clear to auscultation bilaterally Cardio regular rate, regular rhythm, S1 normal heart sound, S2 normal heart sound and no murmurs Peripheral Pulses: pulses 2+ throughout GI normal to inspection, nondistended, normoactive bowel sounds, soft to palpation,non-tender, non-distended and no masses; Negative for hepatosplenomegaly Back/Spine no CVA tenderness Extremity normal to inspection Neuro oriented x3, CN's II-XII intact bilaterally, no sensory deficits noted and gait normal Sensorium / Orientation: awake and alert Psych mental status grossly normal Skin no rashes or lesions noted and no wounds General Skin Exam: Negative for jaundice or pallor MDM MDM MDM Narrative Medical decision making narrative: Patient presents with exertional chest tightness. Concerned this represents cardiac. Doubt noncardiac but also need to consider peptic ulcer disease GERD pulmonary disease. EKG appropriate blood work was ordered. Case was discussed with Dr. Gilmar Patino. He recommends cardiac catheterization. If troponin is negative plan is to call Dr. 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3 Glucose 120 H Calcium 8.8 Troponin I High Sens 136 H* Management Discussion w/another healthcare provider: Hospitalist (Hospitalist paged for admission.) 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 Since patient had a non-STEMI cardiology has been paged regarding antithrombotic care and anticoagulant.) Treatment and Re-Evaluation :: After discussion Dr. Manuel patient was loaded with Brilinta and started on heparin. He will contact Dr. Dr. 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 Call [facility] ([phone]) or report to the closest Emergency Room. Call 911 if necessary. 10/18/23 1431 <Electronically signed by Mathew Gonzalez MD> Cosigner Signature (if applicable): CC: Dr. Chilango Welsh MD ~ Signed ADDENDUM by Dr. Mathew Gonzalez MD on 10/18/23 at 1432 EKG reveals normal sinus rhythm rate of 67. There is premature ventricular beats. Rate is 67. Parables 178 ms. Cures duration 96 ms. QT duration 384 ms. [place] is normal. There is no obvious acute ischemic changes noted. 10/18/23 1432<Electronically signed by Mathew Gonzalez MD> Cosigner Signature (if applicable): cc: Dr. Chilango Welsh MD ~* Signed [facility] Work Phone: 1(137) 152-988102-15-2024 Discharge summary Author Mathew Gonzalez [facility] October 18, 2023 2:32pm Note Date/Time October 18, 2023 1:22pm [facility] Medical Records Department [address] [place] [address] Emergency Department Summary 10/18/23 MR#: [id number] Acct: [id number] Name: AFSANEH BOWERS Rep #:[id number] : 1960 63 From: Mathew Gonzalez MD PCP: Dr. Chilango Welsh MD Status:RE G ER Location: ED HPI History of Present Illness Chief Complaint: Chest Pain Detail of Chief Complaint: Chest tightness and fullness radiating to the left upper extremity with exe Informant: patient Onset/Context/Timing Onset: Days (Detailed HPI narrative) Activity at onset: sudden Timing: Intermittent Quality: Positive for Tightness and - (Fullness) Location: Substernal and Left Parasternal Current Severity: Gone Maximum Severity: Severe (On Sunday patient) Worsened By: Exertion; Not Worsened By Movement of Arm, Movement of Torso, Eating, Palpation, Breathing or Coughing Relieved By: Rest Associated Symptoms: Positive for Dyspnea; Negative for Nausea, Vomiting, Diaphoresis, Cough, Fever, Lightheadedness, Acid Reflux or Palpitations Narrative Narrative: Patient is a healthy active 63-year-old male who does not smoke. There is multiple family's maternal side of have cardiac disease. No one before the age of 55. He has no risk factors for cardiac disease. 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 This occurred mostly withCOVID again. He states when the reason he got the discomfort and resolved once he stopped running. He left a game on Sunday had no symptoms. He left a gameon Sunday and was having exertional chest discomfort with dyspnea. He had no other associated symptoms. He denies history of reflux. He denies intolerance to greasy or fried foods. He denies black or maroon-colored stool. Prior Similar Symptoms: No Recent Illness/Hospitalization: No CVD Risk Factors: Negative for Hypertension, Diabetes, Hypercholesterolemia, Family History 1' </=55 or Smoking PE Risk Factors: Negative for Recent Travel/Surgery, Recent Immobilization, Prior DVT or PE, Cancer or OCP + Smoking + >/=35 TAD Risk Factors: Negative for Marfan's Syndrome, Hypertension or Family History PFSH PFSH Medical History no medical history no medical history Home Medications NK 08/12/20 [History Last Taken Unknown] Allergy/AdvReac Type Severity Reaction Status Date / Time No Known Allergies Allergy Verified 10/18/23 12:32 Surgical History no surgical history no surgical history Social History (Updated 10/18/23 @ 13:[address] Mathew Gonzalez MD) household members: none Smoking Status: Never smoker ROS ROS ED Constitutional Constitutional ED: Denies chills, fever(s) or subjective Eyes Eyes: Reports none ENT ENT ED: Denies ear pain, rhinorrhea or sore throat Cardiovascular Cardiovascular: Reports as per HPI; Denies orthopnea or paroxysmal nocturnal dyspnea Respiratory/Chest Respiratory/Chest: Reports dyspnea on exertion; Denies cough, dyspnea, orthopnea, paroxysmal nocturnal dyspnea or sputum Gastrointestinal Gastrointestinal: Denies abdominal pain, melena, nausea or vomiting Musculoskeletal Musculoskeletal: Denies arthralgias, back pain, myalgias or neck pain Integumentary Denies rash Neurologic Neurologic: Denies paresthesias or weakness Hematologic/Lymphatic Hematologic/Lymphatic: Denies easy bleeding or easy bruising EXAM Physical Exam Const Vital Signs: 10/18/23 12:32 10/18/23 12:31 10/18/23 12:31 Temperature 97.3 F L 97.8 F Temperature Source Temporal Temporal Pulse Rate 70 73 Respiratory Rate 18 16 Respiratory Effort Normal Blood Pressure 144/61 H 129/75 H Blood Pressure Mean 88 93 Pulse Ox 97 96 Oxygen Delivery Method Room Air Room Air 10/18/23 14:08 10/18/23 14:23 Temperature 97.6 F L Temperature Source Pulse Rate 61 63 Respiratory Rate 27 H 22 H Respiratory Effort Blood Pressure 111/75 117/82 H Blood Pressure Mean 87 93 Pulse Ox 95 95 Oxygen Delivery Method Room Air Positive well nourished and well developed General Appearance ED: well developed and NAD; Negative for pallor HEENT Reports moist mucous membranes normocephalic and atraumatic Eyes PERRL and EOMs intact bilaterally General Eye ED: Negative for pale conjunctiva or scleral icterus Neck no lymphadenopathy, supple and no JVD Resp normal respiratory effort and clear to auscultation bilaterally Cardio regular rate, regular rhythm, S1 normal heart sound, S2 normal heart sound and no murmurs Peripheral Pulses: pulses 2+ throughout GI normal to inspection, nondistended, normoactive bowel sounds, soft to palpation,non-tender, non-distended and no masses; Negative for hepatosplenomegaly Back/Spine no CVA tenderness Extremity normal to inspection Neuro oriented x3, CN's II-XII intact bilaterally, no sensory deficits noted and gait normal Sensorium / Orientation: awake and alert Psych mental status grossly normal Skin no rashes or lesions noted and no wounds General Skin Exam: Negative for jaundice or pallor MDM MDM MDM Narrative Medical decision making narrative: Patient presents with exertional chest tightness. Concerned this represents cardiac. Doubt noncardiac but also need to consider peptic ulcer disease GERD pulmonary disease. EKG appropriate blood work was ordered. Case was discussed with Dr. Gilmar Patino. He recommends cardiac catheterization. If troponin is negative plan is to call Dr. 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3 Glucose 120 H Calcium 8.8 Troponin I High Sens 136 H* Management Discussion w/another healthcare provider: Hospitalist (Hospitalist paged for admission.) 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 Since patient had a non-STEMI cardiology has been paged regarding antithrombotic care and anticoagulant.) Treatment and Re-Evaluation :: After discussion Dr. Manuel patient was loaded with Brilinta and started on heparin. He will contact Dr. Dr. 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 Call [facility] ([phone]) or report to the closest Emergency Room. Call 911 if necessary. 10/18/23 1431 <Electronically signed by Mathew Gonzalez MD> Cosigner Signature (if applicable): CC: Dr. Chilango Welsh MD ~ Signed ADDENDUM by Dr. Mathew Gonzalez MD on 10/18/23 at 1432 EKG reveals normal sinus rhythm rate of 67. There is premature ventricular beats. Rate is 67. Parables 178 ms. Cures duration 96 ms. QT duration 384 ms. [place] is normal. There is no obvious acute ischemic changes noted. 10/18/23 1432<Electronically signed by Mathew Gonzalez MD> Cosigner Signature (if applicable): cc: Dr. Chilango Welsh MD ~* Signed [facility] Work Phone: 1(506) 930-930601-24-2024 History of Present illness Narrative* Asaf Torres MD - 09/26/2023 8:55 PM ESTAssociated Order(s): LG Jt Injection/Arthrocentesis: L knee Post-Procedure Diagnose(s): Arthritis of both knees LG Jt Injection/Arthrocentesis: L knee Performed by: Asaf Torres MD Authorized by: Asaf Torres [place] CPT 55953 - Large Joint Arthrocentesis: Consent given by: Patient Supporting Documentation: Indications: Pain Procedure Details: Location: Knee Site: L knee Needle size: 20 G Approach: Lateral Medications: 40 mg triamcinolone acetonide 40 mg/mL Anesthetic used: Lidocaine 1% Anesthetic amount (mL): 1 Patient tolerance: Patient tolerated the procedure well with no immediate complications * Asaf Trores MD - 09/26/2023 8:54 PM ESTAssociated Order(s): LG Jt Injection/Arthrocentesis: R knee Post-Procedure Diagnose(s): Arthritis of both knees LG Jt Injection/Arthrocentesis: R knee Performed by: Asaf Torres MD Authorized by: Asaf Torres MD [facility] [id number] - Large Joint Arthrocentesis: Consent given by: Patient Supporting Documentation: Indications: Pain Procedure Details: Location: Knee Site: R knee Needle size: 20 G Approach: Lateral Medications: 40 mg triamcinolone acetonide 40 mg/mL Anesthetic used: Lidocaine 1% Anesthetic amount (mL): 1 Patient tolerance: Patient tolerated the procedure well with no immediate complications * Asaf Torres MD - 09/26/2023 8:53 PM EST Assessment/Plan: 1. Arthritis of both knees Exacerbation of bilateral knee arthritis Injection both knees Return if symptoms worsen or fail to improve. Subjective: Afsaneh Bowers is a 62 y.o. male here [...] left knee. Moderate patellofemoral disease bilateral Asaf Torres MD 09/26/2023 documented in this [id number] History of Present illness Narrative* Asaf Torres MD - 10/18/2022 3:59 PM ESTAssociated Order(s): LG Jt Injection/Arthrocentesis: L knee Post-Procedure Diagnose(s): Arthritis of both knees LG Jt Injection/Arthrocentesis: L knee Performed by: Asaf Torres MD Authorized by: Asaf Torres MD CPT 57178 - Large Joint Arthrocentesis: Consent given by: Patient Supporting Documentation: Indications: Pain Procedure Details: Location: Knee Site: L knee Needle size: 20 G Approach: Lateral Medications: 40 mg triamcinolone acetonide 40 mg/mL Anesthetic used: Bupivacaine 0.5% Anesthetic amount (mL): 1 Patient tolerance: Patient tolerated the procedure well with no immediate complications documented in this [id number] History of Present illness Narrative* Asaf Torres MD - 04/20/2022 9:33 PM EDT Assessment/Plan: 1. Traumatic tear of left rotator cuff, unspecified tear extent, subsequent encounter Gradual progress left shoulder status post rotator cuff repair at 5 months Continue gradual strengthening program Return in about 4 weeks (around 05/17/2022) for Recheck. Subjective: Afsaneh Bowers is a 61 y.o. male here [...] from this visit: No results found. Asaf Torres MD 04/20/2022 documented in this [id number] History of Present illness Narrative* Roma Palomares MA - 04/20/2022 12:21 PM EDT Completed and faxed RTW eval. With continued restricition through 06/21/22 documented in this [id number] History of Present illness Narrative* Roma Palomares MA - 04/13/2022 11:11 AM EDT Faxed updated work restrictions to the [facility] fax [phone] documented in this [id number] History of Present illness Narrative* Asaf Torres MD - 03/29/2022 11:55 AM EDT Assessment/Plan: 1. Traumatic tear of left rotator cuff, unspecified tear extent, initial encounter Stable status post rotator cuff repair left shoulder Physical therapy per protocol Return in about 4 weeks (around 01/27/2022) for Recheck. Subjective: Afsaneh Bowers is a 61 y.o. male here [...] from this visit: No results found. Asaf Torres MD 03/29/2022 documented in this [id number] History of Present illness Narrative* Asaf Torres MD - 02/22/2022 4:11 PM EDT Assessment/Plan: 1. Traumatic tear of left rotator cuff, unspecified tear extent, initial encounter Stable status post rotator cuff repair left Patient's PT has been restricted by a spider bite. Return in about 4 weeks (around 03/22/2022) for Recheck. Subjective: Afsaneh Bowers is a 61 y.o. male here [...] from this visit: No results found. Asaf Torres MD 02/22/2022 documented in this [id number] History of Present illness Narrative* Asaf Torres MD - 01/27/2022 7:18 AM EDT Assessment/Plan: 1. Traumatic tear of left rotator cuff, unspecified tear extent, initial encounter Improving left shoulder status post rotator cuff repair at 2 and half months Continue PT per protocol Return in about 4 weeks (around 02/22/2022) for Recheck. Subjective: Afsaneh Bowers is a 61 y.o. male here [...] from this visit: No results found. Asaf Torres MD 01/27/2022 documented in this [id number] History of Present illness Narrative* Roma Palomares MA - 01/02/2022 1:45 PM EDT PT referral with light weight training added faxed to [phone] per pt request documented in this [id number] History of Present illness Narrative* Primo Tineo MD - 12/15/2021 9:30 AM EDT Assessment and Plan 1. Epiretinal membrane (ERM) of right eye -stable with preserved foveal contour 2. Optic cupping of both eyes 3. 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 Pseudophakia of both eyes -stable Plan: -doing well overall -continue follow-up Dr. Avila. Me as needed I have confirmed and edited as necessary the relevant ophthalmic history, ROS, and the neuro exam findings as obtained by others. I have seen and examined Afsaneh Jon Kishore. I have discussed the case and the management of this patient's care with the Resident/Fellow, if applicable. I also have reviewed and agree with the assessment and plan as stated above and agree withall of its relevant components. Primo Tineo MD December 15, 2021 9:30 AM [facility] Instructions* Patient Instructions* Primo Tineo MD - 12/15/2021 9:30 AM EDT Images from the original note were not included. P [facility] History of Present illness Narrative* Roma Palomares MA - 12/05/2021 1:26 PM EDT Faxed PT order to [facility] PT fax [phone] documented in this [id number] History of Present illness Narrative* Asaf Torres MD - 12/01/2021 7:38 AM EDT Assessment/Plan: 1. Traumatic tear of left rotator cuff, unspecified tear extent, initial encounter Stable status post rotator cuff repair left shoulder Begin formal PT next week. Instructed on a home exercise program Return in about 4 weeks (around 12/28/2021) for Recheck. Subjective: Afsaneh Bowers is a 61 y.o. male here [...] from this visit: No results found. Asaf Torres MD 12/01/2021 documented in this [id number] History of Present illness Narrative* Roma Palomares MA - 11/04/2021 10:51 AM EST refaxed corrected FMLA with date of 10/17/21 as first day off to fax [phone] documented in this [id number] History of Present illness Narrative* Roma Palomares MA - 11/02/2021 9:27 AM EST Completed FMLA form and emailed to patient documented in this [id number] History of Present illness Narrative* Roma Palomares MA - 10/17/2021 2:27 PM EST Referral faxed to [facility] for MRI documented in this [id number] History of Present illness Narrative* Asaf Torres MD - 10/12/2021 2:50 PM EST Associated Order(s): LG Jt Injection/Arthrocentesis: L knee Post-Procedure Diagnose(s): Arthritis of both knees LG Jt Injection/Arthrocentesis: L knee Performed by: Asaf Torres MD Authorized by: Asaf Torres MD CPT 72536 - Large Joint Arthrocentesis: Consent given by: Patient Supporting Documentation: Indications: Pain Procedure Details: Location: Knee Site: L knee Needle size: 20 G Approach: Lateral Medications: 80 mg triamcinolone acetonide 40 mg/mL Anesthetic used: Lidocaine 1% Anesthetic amount (mL): 1 Patient tolerance: Patient tolerated the procedure well with no immediate complications * Asaf Torres MD - 10/12/2021 2:49 PM EST Assessment/Plan: 1. Arthritis of both knees Exacerbation arthritic symptoms left knee Injection left knee Return if symptoms worsen or fail to improve. Subjective: Afsaneh Bowers is a 61 y.o. male here [...] from this visit: No results found. Asaf Torres MD 10/12/2021 documented in this [id number] History of Present illness Narrative* Asaf Torres MD - 08/18/2021 8:02 AM EST Associated Order(s): LG Jt Injection/Arthrocentesis: L knee Post-Procedure Diagnose(s): Arthritis of both knees LG Jt Injection/Arthrocentesis: L knee Performed by: Asaf Torres MD Authorized by: Asaf Torres MD CPT 24342 - Large Joint Arthrocentesis: Consent given by: Patient Supporting Documentation: Indications: Pain Procedure Details: Location: Knee Site: L knee Needle size: 20 G Approach: Lateral Medications: 80 mg methylPREDNISolone acetate 40 mg/mL Anesthetic used: Lidocaine 1% Anesthetic amount (mL): 1 Patient tolerance: Patient tolerated the procedure well with no immediate complications * Asaf Torres MD - 08/18/2021 8:00 AM EST Assessment/Plan: 1. Arthritis of both knees Symptomatic medial compartment arthritis of the left knee Discussed options and elected to inject the left knee to help Derick get through the basketball season Return if symptoms worsen or fail to improve. Subjective: Afsaneh Bowers is a 60 y.o. male here for Procedure of the Left Knee (LEFT KNEE INJECTION. LAST ONE 10/02/19) Ongoing left knee pain. 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 He has had increasing difficulty with his left knee. Has not reinjured the knee. Is having painprimarily in the medial aspect of his knee.. [...] space narrowing on the left. There is mildpatellofemoral arthrosis of both knees. Asaf Torres MD 08/18/2021 documented in this [id number] History of Past illness Narrative* Problem Noted Date Resolved Date Combined form of age-related cataract, right eye 05/27/2018 12/07/2020 Combined form of age-related cataract, left eye 05/27/2018 12/27/2018 Regular astigmatism of left eye 10/24/2016 12/27/2018 Meibomianitis - Both Eyes 01/29/20152016 Acute conjunctivitis, unspecified - Left Eye 10/24/2016 Central corneal ulcer - Left Eye 01/10/2015 10/24/2016 documented as of this encounter (statuses as of 12/15/2021) [facility] note* Diagnosis Left knee pain, unspecified chronicity- Primary [facility] Diagnosis Arthritis of both knees- Primary [facility] Diagnosis Arthritis of both knees- Primary [facility] Diagnosis Left shoulder pain, unspecified chronicity- Primary [facility] Diagnosis Left shoulder pain, unspecified chronicity- Primary [facility] Diagnosis Left shoulder pain, unspecified chronicity- Primary [facility] Diagnosis Traumatic tear of left rotator cuff- Primary Exposure to SARS-associated coronavirus- Primary Traumatic tear of left rotator cuff, unspecified tear extent, initial encounter [facility] Diagnosis Traumatic tear of left rotator cuff- Primary Exposure to SARS-associated coronavirus- [facility] Diagnosis Traumatic tear of left rotator cuff, unspecified tear extent, initial encounter- Primary [facility] Diagnosis Traumatic tear of left rotator cuff, unspecified tear extent, initial encounter- Primary [facility] Diagnosis Epiretinal membrane (ERM) of right eye- Primary Optic cupping of both eyes High myopia, bilateral Myopia Pseudophakia of both eyes Lens replaced by other means documented in this encounter [facility] note* Diagnosis Traumatic tear of left rotator cuff, unspecified tear extent, initial encounter- Primary [facility] Diagnosis Traumatic tear of left rotator cuff, unspecified tear extent, initial encounter- Primary [facility]* Diagnosis Traumatic tear of left rotator cuff, unspecified tear extent, subsequent encounter- Primary [facility] noteNo assessment information [facility]WHol[facility] Work Phone: Evaluation note* Diagnosis Arthritis of both knees- Primary [facility]* Diagnosis Arthritis of both knees- Primary [facility]* Diagnosis Onset Date Resolution Status Hyperglycemia acute Non-ST elevated myocardial infarction acute [facility] Work Phone: Evaluation note* Diagnosis Onset Date Resolution Status Aortic valve regurgitation a cute Hyperglycemia acute Non-ST elevated myocardial infarction acute [facility] Work Phone: Evaluation note* Diagnosis Chest pain- Primary Chest pain, unspecified NSTEMI (non-ST elevated myocardial infarction) Acute myocardial infarction, subendocardial infarction, episode of care unspecified NSTEMI (non-ST elevated myocardial infarction) Acute myocardial infarction, subendocardial infarction, episode of care unspecified Aneurysm, ascending aorta Thoracic aneurysm without mention of rupture [facility] Diagnosis Aneurysm of ascending aorta- Primary Thoracic aneurysm without mention of rupture Aneurysm of ascending aorta without rupture Dilated aortic root Aortic ectasia, unspecified site S/P ascending aortic replacement Blood vessel replaced by other means History of aortic root repair Personal history of surgery to heart and great vessels, presenting hazards to health Nonrheumatic aortic valve insufficiency Aortic valve disorders Physical deconditioning Debility, unspecified Postoperative pain Other acute postoperative pain S/P aorta repair 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 Dilated aortic root Aortic ectasia, unspecified site [facility] Diagnosis Aneurysm of vein- Primary Varices of other sites [facility] Diagnosis S/P ascending aortic replacement Blood vessel replaced by other means [facility] Diagnosis 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, unspecified laterality- Primary [facility]* Diagnosis Onset Date Resolution Status Aortic valve regurgitation a cute Hyperglycemia acute Non-ST elevated myocardial infarction acute Aortic valve regurgitation a cute Coronary artery disease acut e Eye problem acute Hypertension chronic [facility] Work Phone: Evaluation note* Diagnosis After-cataract of right eye with vision obscured- Primary 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- Primary 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 [facility]* Diagnosis Arthritis of both knees- Primary documented in this encounter [facility] note* Diagnosis 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 [facility]* Diagnosis Myopic macular degeneration- Primary Macular degeneration (senile) of retina, unspecified Vitreous floaters of both eyes Binocular vision disorder Binocular vision disorder, unspecified Pseudophakia, both eyes Lens replaced by other means 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, unspecified Ocular hypertension, bilateral Borderline glaucoma with ocular hypertension Regular astigmatism, bilateral Presbyopia documented in this encounter [facility]* Diagnosis Status post cardiac surgery S/P aorta repair [facility]* Diagnosis Status post cardiac surgery S/P aorta repair [facility]* Diagnosis Ocular hypertension of left eye- Primary 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, unspecified [facility]* Diagnosis Right shoulder pain, unspecified chronicity- Primary documented in this encounter [facility] note* Diagnosis Ocular hypertension of left eye- Primary 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, 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 [facility]* Diagnosis Pain in right shoulder documented in this encounter [facility] Work Phone: Evaluation note* Diagnosis Right hip pain- Primary Pain in joint, pelvic region and thigh [facility]* Diagnosis Right shoulder pain, unspecified chronicity- Primary Tear of right rotator cuff, unspecified tear extent, unspecified whether traumatic [facility]* Diagnosis Complete tear of right rotator cuff, unspecified whether traumatic- Primary Arthritis of right hip [facility]* Diagnosis Complete tear of right rotator cuff- Primary Arthritis of right hip- Primary Complete tear of right rotator cuff, unspecified whether traumatic documented in this encounter [facility] for referral (narrative)* Consultation (Routine) - New Request Specialty Diagnoses / Procedures Referred By Cristiane green Referred To Contact Neurology Diagnoses Aneurysm of vein Nick Calderon, PAC [address] [place] [phone] Referral ID Status Reason Start Date Expiration Date V isits Requested Visits Authorized [id number] New Request 11/19/2023 12/13/2024 1 1 * Adjunctive Therapy (Routine) - New Request Specialty Diagnoses / Procedures Referred By Cristiane green Referred To Contact Diagnoses S/P aorta repair Procedures [place] [facility] W/CONT ECG MONITORING Ani Ríos MD (John) [address] [place] [phone] [facility]- [facility] Cardiac [facility], Other [address] [place] [address] Referral ID Status Reason Start Date Expiration Date V isits Requested Visits Authorized [id number] New Request 11/19/2023 12/13/2024 1 1 Scheduling Instructions [facility] Card[facility] Rehab Program Cardiac Rehab at [address] [address] Cardiac Rehab class days offered at this location: Sunday Cardiac Rehab class times offered at this location: 7:30am - 8:30am 9:00am - 10:00am 10:30am - 11:30am 12:00pm - 1:00pm 2:00pm - 3:00pm 3:30pm - 4:30pm 5:00pm - 6:00pm [facility] [address] [place] [address], [address] [place] [address] Cardiac Rehab class days offered at this location: Sunday Cardiac Rehab class times offered at this location: 7:45am - 8:45am 8:45am - 9:45am 9:45am - 10:45am 10:45am - 11:45am 3:00pm - 4:00pm * Transfer of Care (Routine) - New Request Specialty Diagnoses / Procedures Referred By Cristiane green Referred To Contact Social Work Diagnoses S/P ascending aortic replacement Gokul Cornejo PAC [address] [place] [address] Referral ID Status Reason Start Date Expiration Date V isits Requested Visits Authorized [id number] New Request 11/15/2023 12/09/2024 1 1 * MRI/CAT Scan (Routine) - Auth Not Needed Specialty Diagnoses / Procedures Referred By Cristiane green Referred To Contact Diagnoses S/P ascending aortic replacement Procedures CT ANGIO CHEST (NONCORONARY) [place] ANGIO, CHEST (NON-CORON), COMBO, INCL IMG PROC Gokul Cornejo, PAC [address] [place] [address] Referral ID Status Reason Start Date Expiration Date V isits Requested Visits Authorized [id number] Auth Not Needed 11/15/2023 12/09/2024 1 1 * (Routine) Specialty Diagnoses / Procedures Referred By Cristiane green Referred To Contact [facility] [address] [place] [phone] Referral ID Status Reason Start Date Expiration Date Visits Re quested Visits Authorized * Unlisted Procedure Code (Routine) - New Request Specialty Diagnoses / Procedures Referred By Contac t Referred To Contact Procedures PLATELET MONITORING PER PROTOCOL Ani Ríos MD (John) [address] [place] [phone] Referral ID Status Reason Start Date Expiration Date V isits Requested Visits Authorized [id number] New Request 11/14/2023 12/08/2024 1 1 * (Routine) Specialty Diagnoses / Procedures Referred By Contac t Referred To Contact [facility] [address] [phone] Referral ID Status Reason Start Date Expiration Date Visits Re quested Visits Authorized * (Routine) Specialty Diagnoses / Procedures Referred By Contac t Referred To Contact [facility] [address] [phone] Referral ID Status Reason Start Date Expiration Date Visits Re quested Visits Authorized * (Routine) Specialty Diagnoses / Procedures Referred By Contac t Referred To Contact [facility] [address] [phone] Referral ID Status Reason Start Date Expiration Date Visits Re quested Visits Authorized * Radiology (Emergency) - New Request Specialty Diagnoses / Procedures Referred By Contac t Referred To Contact Procedures ECG Ani Ríos MD (John) [address] [place] [phone] Referral ID Status Reason Start Date Expiration Date V isits Requested Visits Authorized [id number] New Request 11/13/2023 12/07/2024 1 1 * Radiology (Routine) - New Request Specialty Diagnoses / Procedures Referred By Contac t Referred To Contact Procedures ECHOCARDIOGRAM TRANSESOPHAGEAL (AARON) IN OR - IMAGES Ani Ríos MD (John) [address] [place] [phone] Referral ID Status Reason Start Date Expiration Date V isits Requested Visits Authorized [id number] New Request 11/13/2023 12/07/2024 1 1 * (Routine) - New Request Specialty Diagnoses / Procedures Referred By Contac t Referred To Contact Diagnoses Aneurysm of ascending aorta without rupture Dilated aortic root Procedures PREPARE TO TRANSFUSE OR RED BLOOD CELLS Ani Ríos MD (John) [address] [place] [phone] Referral ID Status Reason Start Date Expiration Date V isits Requested Visits Authorized [id number] New Request 11/17/2023 12/11/2024 1 1 * Unlisted Procedure Code (Routine) - New Request Specialty Diagnoses / Procedures Referred By Contac t Referred To Contact Diagnoses Aneurysm of ascending aorta without rupture Dilated aortic root Procedures NO MECHANICAL DVT PROPHYLAXIS Ani Ríos MD (John) [address] [place] [phone] Referral ID Status Reason Start Date Expiration Date V isits Requested Visits Authorized [id number] New Request 11/13/2023 12/07/2024 1 1 [facility] (narrative)No reason for referral information availableWooSt. [facility] Work Phone: Reason for visit Narrative* MRI/CAT Scan (Routine) - Pending Review Specialty Diagnoses / Procedures Referred By Cristiane green Referred To Contact Diagnoses Status post cardiac surgery S/P aorta repair Procedures CT ANGIO CHEST (NONCORONARY) [place] CT ANGIO, CHEST (NON-CORON), COMBO, INCL IMG PROC Nora Rosa, GROUND EQUIPMENT MECHANIC-RECYCLING OPERATOR [address] [place] [address] Phone: tel: fax: Referral ID Status Reason Start Date Expiration Date V isits Requested Visits Authorized [id number] Pending Review 12/24/2023 01/17/2025 1 1 [facility] for visit Narrative* Radiology (Routine) - Pending Review Specialty Diagnoses / Procedures Referred By Cristiane green Referred To Contact Echocardiography Diagnoses Status post cardiac surgery S/P aorta repair Procedures ECHOCARDIOGRAM [place] ECHO HEART XTHORACIC,COMPLETE W DOPPLER Nora Rosa, GROUND EQUIPMENT MECHANIC-RECYCLING OPERATOR [address] [place] [phone] Phone: tel: fax: [facility] [address] [place] [address] Phone: tel: Referral ID Status Reason Start Date Expiration Date V isits Requested Visits Authorized [id number] Pending Review 12/24/2023 01/17/2025 1 1 [facility] for visit Narrative* Imaging (Routine) - Authorized Specialty Diagnoses / Procedures Referred By Cristiane green Referred To Contact Radiology Diagnoses Pain in right shoulder Procedures MR shoulder right wo IV contrast Nina Torres MD [address] [place] [address] Phone: tel: fax: Referral ID Status Reason Start Date Expiration Date Visits Requested Visits Authorized [id number] Authorized Perform Procedure 02/05/2025 02/05/2026 1 1 [facility] Work Phone: Summary Purpose Family History No Family History Records Found Relationship Condition Age at Onset Recorded Date/T yaakov Not Specified Coronary artery disease Unknown Cardiac disease Unknown Hypertension Unknown Relationship Condition Age at Onset Recorded Date/T yaakov Not Specified History of aortic arch replacement Unkno wn History of ascending aortic replacement U nknown History of aortic root repair Unknown Coronary artery disease Unknown Cardiac disease Unknown Hypertension Unknown Advance Directives No Advanced Directives Records FoundDocuments on File Type Date Recorded 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 Expl 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 Advance Directives and Living Will Documents on File Type Date Recorded 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 Operator Expl anation Advance Directives and Living Will Documents on File Type Date Recorded 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 Operator Expl anation Advance Directives and Livin g Will 11/08/2021 7:28 AM Documents on File Type Date Recorded 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 Expl anation Advance Directives and Livin g Will 11/08/2021 7:28 AM Advance Directive Response Recorded Date/ Time Living Will Yes August 12 9:17am Power of Bank Runner Yes August 12, 2020 9:17am Advance Directive Response Recorded Date/ Time Living Will No October 18 12:31pm Power of Bank Runner No October 18, 2023 12:31pm Advance Directive Response Recorded Date/ Time Name of Medical Power of Bank Runner Napoleon mckeon on October 18, 2023 3:31pm Living Will Yes October 18 3:31pm Power of Bank Runner Yes October 18, 2023 3:31pm Latest Code Status on File Code Status Date Activated Date Inactivated Comments Full Code 10/22/2023 1:51 PM Code Status History Code Status Date Activated Date Inactivated Comments Full Code 10/20/2023 2:40 AM 10/22/2023 1:51 PM Latest Code Status on File Code Status Date Activated Date Inactivated Comments Full Code 11/13/2023 3:33 PM Code Status History Code Status Date Activated Date Inactivated Comments Full Code 10/22/2023 1:51 PM 11/13/2023 3:33 PM Full Code 10/20/2023 2:40 AM 10/22/2023 1:51 PM Latest Code Status on File Code Status Date Activated Date Inactivated Comments Full Code 11/13/2023 3:33 PM Code Status History Code Status Date Activated Date Inactivated Comments Full Code 10/22/2023 1:51 PM 11/13/2023 3:33 PM Full Code 10/20/2023 2:40 AM 10/22/2023 1:51 PM Advance Directive Response Recorded Date/ Time Name of Medical Power of Bank Runner Napoleon mckeon on October 18, 2023 4:31pm Advance Directives on File No December 21, 2023 8:03am Living Will Yes December 21, 2023 8:17am Power of Bank Runner Yes December 20 8:17am Date Activated Date Inactivated Comments 11/13/2023 3:33 PM Date Activated Date Inactivated Comments 10/22/2023 1:51 PM 11/13/2023 3:33 PM Date Activated Date Inactivated Comments 10/20/2023 2:40 AM 10/22/2023 1:51 PM Date Activated Date Inactivated Comments 11/13/2023 3:33 PM Date Activated Date Inactivated Comments 10/22/2023 1:51 PM 11/13/2023 3:33 PM Date Activated Date Inactivated Comments 10/20/2023 2:40 AM 10/22/2023 1:51 PM History of Present Illness * Asaf Torres MD - 10/04/2019 9:00 AM EST Associated Order(s): LG Jt Injection/Arthrocentesis: L knee Post-Procedure Diagnose(s): Arthritis of both knees LG Jt Injection/Arthrocentesis: L knee Performed by: Asaf Torres MD Authorized by: Asaf Torres MD [facility] [id number] - Large Joint Arthrocentesis: Consent given by: Patient Supporting Documentation: Indications: Pain Procedure Details: Location: Knee Site: L knee Needle size: 20 G Approach: Lateral Medications: 80 mg methylPREDNISolone acetate 40 mg/mL Anesthetic used: Lidocaine 1% Anesthetic amount (mL): 1 Patient tolerance: Patient tolerated the procedure well with no immediate complications * Asaf Torres MD - 10/04/2019 8:59 AM EST Associated Order(s): LG Jt Injection/Arthrocentesis Post-Procedure Diagnose(s): Arthritis of both knees LG Jt Injection/Arthrocentesis Performed by: Asaf Torres MD Authorized by: Asaf oTrres MD [facility] [id number] - Large Joint Arthrocentesis: Consent given by: Patient Supporting Documentation: Indications: Pain Procedure Details: Location: Knee Needle size: 20 G Approach: Lateral Medications: 80 mg methylPREDNISolone acetate 40 mg/mL Anesthetic used: Lidocaine 1% Anesthetic amount (mL): 1 Patient tolerance: Patient tolerated the procedure well with no immediate complications * Asaf Torres MD - 10/04/2019 8:57 AM EST Assessment/Plan: 1. Right knee pain, unspecified chronicity celecoxib (CELEBREX) 200 MG capsule CANCELED: XR Knee Right 4+VWS (Note in Comments) 2. Arthritis of both knees Symptomatic knee arthritis bilateral moderate Injection both knees Return if symptoms worsen or fail to improve. Subjective: Afsaneh Bowers is a 59 y.o. 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 3. LEFT KNEE: Mild medial compartment degeneration. 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 ARR/trw Workstation ID: [id number] Asaf Torres MD 10/04/2019 documented in this encounter Assessments Diagnosis Right knee pain, unspecified chronicity Arthritis of both knees Reason for Referral Specialty Diagnoses / Procedures Referred By Contac t Referred To Contact Radiology Diagnoses Left shoulder pain, unspecified chronicity Procedures MR Shoulder Left Without Contrast Asaf Torres MD [address] [facility] [place] [address] Referral ID Status Reason Start Date Expiration Date V isits Requested Visits Authorized [id number] Pending Review 10/17/2021 10/17/2022 1 1 Referral ID Status Reason Start Date Expiration Date Visits Re quested Visits Authorized [id number] Closed 10/17/2021 10/17/2022 1 1 Specialty Diagnoses / Procedures Referred By Contshanti t Referred To Contact Radiology Diagnoses Left shoulder pain, unspecified chronicity Procedures MR Shoulder Left Without Contrast Asaf Torres MD [address] [place] [address] [facility] [phone]) [phone] [place] [address] Phone: [phone] Referral ID Status Reason Start Date Expiration Date V isits Requested Visits Authorized [id number] Authorized 10/17/2021 10/17/2022 1 1 Specialty Diagnoses / Procedures Referred By Contac t Referred To Contact Physical Therapy Diagnoses Traumatic tear of left rotator cuff, unspecified tear extent, initial encounter Asaf Torres MD [address] [place] [address] Referral ID Status Reason Start Date Expiration Date Visits Requested Visits Authorized [id number] Authorized Patient Preference 12/01/2021 12/01/2022 1 1 Specialty Diagnoses / Procedures Referred By Contac t Referred To Contact Physical Therapy Diagnoses Traumatic tear of left rotator cuff, unspecified tear extent, [place] [address] [place] [address] [address] Phone: [phone] Referral ID Status Reason Start Date Expiration Date Visits Requested Visits Authorized [id number] Authorized Patient Preference 01/02/2022 01/02/2023 1 1 Specialty Diagnoses / Procedures Referred By Contac t Referred To Contact Physical Therapy Diagnoses Traumatic tear of left rotator cuff, unspecified tear extent, initial encounter Asaf Torres MD [address] [place] [id number] [facility] [address] [place] [phone] Referral ID Status Reason Start Date Expiration Date Visits Requested Visits Authorized [id number] Authorized Patient Preference 02/28/2022 02/28/2023 1 1 Specialty Diagnoses / Procedures Referred By Contac t Referred To Contact Procedures ECG Shoaib Dubon MD [address] [place] [phone] Referral ID Status Reason Start Date Expiration Date V isits Requested Visits Authorized [id number] New Request 10/19/2023 11/12/2024 1 1 Specialty Diagnoses / Procedures Referred By Contac t Referred To Contact Procedures DVT/VTE RISK ASSESSMENT Shoaib Dubon MD [address] [place] [phone] Referral ID Status Reason Start Date Expiration Date V isits Requested Visits Authorized [id number] New Request 10/19/2023 11/12/2024 1 1 Specialty Diagnoses / Procedures Referred By Cristiane green Referred To Contact [facility] [address] [place] [address] Referral ID Status Reason Start Date Expiration Date Visits Re quested Visits Authorized Specialty Diagnoses / Procedures Referred By Contac t Referred To Contact Diagnoses S/P ascending aortic replacement Procedures CT ANGIO CHEST (NONCORONARY) [place] CT ANGIO, CHEST (NON-CORON), COMBO, INCL IMG PROC Gokul Cornejo, PAC [address] [place] [phone] Referral ID Status Reason Start Date Expiration Date Visits Re quested Visits Authorized [id number] Closed 11/15/2023 12/09/2024 1 1 Medications Administered Section Active Administered Medications - up to 3 most recent administrations Medication Order MAR Action Action Date Dose Rate Site fluorescein-benoxinate 0.25-0.4 % 1 Drop (FLURESS) 1 Drop, BOTH EYES, DIRECTED, Starting on Fatimah 12/15/21 at 0900, Until Fatimah 12/15/21 at 2058, Administer for applanation tonometry. In the event of a Fluress shortage, administer Danita-Fluor 1 drop into both eyes as directed [...] Until Fatimah 12/15/21 at 2058, Administer for pneumo tonometry, tonopen [...] Fatimah 12/15/21 at 0900, Until Sun12/15/21 at 2059, Administer for dilation Given 12/15/2021 9:00 AM EDT 1 Drop Chief Complaint and Reason for Visit Chief Complaint NODULE Chief Complaint NSTEMI Reason for Visit Hyperglycemia Non-ST elevated myocardial infarction Chief Complaint NSTEMI NSTEMI NSTEMI NSTEMI Reason for Visit Aortic valve regurgi tation Hyperglycemia Non-ST elevated myocardial infarction Chief Complaint NSTEMI NSTEMI NSTEMI NSTEMI NSTEMI Reason for Visit Aortic valve regurgi tation Hyperglycemia Non-ST elevated myocardial infarction Chief Complaint NSTEMI NSTEMI NSTEMI NSTEMI NSTEMI Amb Documentation S/P [facility] 11/11 AVR (SCANNED) S/P Heart Valve Repair Valve sparing aortic root/ascending aorta/eobny arc Reason for Visit Aortic valve regurgi tation Hyperglycemia Non-ST elevated myocardial infarction Aortic valve regurgitation Coronary artery disease Eye problem Hypertension Chief Complaint Admit Date 10 M FU March 11, 2025 8:26a m Additional Source Comments (unrecognized sect ion and [...] ized section and content) DATE CREATED AUTHOR 02/27/2018 [facility] DATE CREATED AUTHOR AUTHOR'S ORGANIZ ATION 02/27/2018 [facility] DATE CREATED AUTHOR AUTHOR'S ORGANIZ ATION 04/19/2019 [facility] DATE CREATED AUTHOR AUTHOR'S ORGANIZ ATION 12/19/2019 [facility] DATE CREATED AUTHOR AUTHOR'S ORGANIZ ATION 10/31/2021 [facility] DATE CREATED AUTHOR AUTHOR'S ORGANIZ ATION 02/09/2022 [facility] DATE CREATED AUTHOR AUTHOR'S ORGANIZ ATION 02/28/2022 [facility] DATE CREATED AUTHOR AUTHOR'S ORGANIZ ATION 11/25/2023 [facility] DATE CREATED AUTHOR AUTHOR'S ORGANIZ ATION 11/25/2023 [facility] DATE CREATED AUTHOR AUTHOR'S ORGANIZ ATION 10/21/2024 [facility] DATE CREATED AUTHOR AUTHOR'S ORGANIZ ATION 01/06/2025 [facility] DATE CREATED AUTHOR AUTHOR'S ORGANIZ ATION 02/03/2025 [facility] DATE CREATED AUTHOR AUTHOR'S ORGANIZ ATION 02/09/2025 [facility] DATE CREATED AUTHOR AUTHOR'S ORGANIZ ATION 02/14/2025 [facility] DATE CREATED AUTHOR AUTHOR'S ORGANIZ ATION 03/14/2025 [facility] DATE CREATED AUTHOR AUTHOR'S ORGANIZ ATION 03/19/2025 [facility] DATE CREATED AUTHOR AUTHOR'S ORGANIZ ATION 04/26/2025 [facility] Reason for Visit (unrecogniz ed section and content) Reason Comments Procedure Pt is wanting left k nee injection, possibly both knees. Reason Comments Procedure LEFT KNEE INJECTION. LAST [...] injection Reason Comments Other Bilateral knee pain Specialty Diagnoses / Procedures Referred By Contshanti t Referred To Contact Diagnoses Chest pain SEVERE CAD Shoaib Dubon MD [address] [place] [address] [facility] [address] [place] [address] Referral ID Status Reason Start Date Expiration Date Visits Re quested Visits Authorized [id number] 1 1 Specialty Diagnoses / Procedures Referred By Contac t Referred To Contact Diagnoses Aneurysm, ascending aorta Aneurysm, ascending aorta [I71.21] Procedures [place] ASCEND AORTA GRAFT W VALVE SPARING ANNULUS REMODEL REPAIR ASCENDING AORTA ANEURYSM W/ VALVE-SPARING ROOT REPAIR OR SUSPENSION Ani Ríos MD (John) [address] [place] [phone] [facility] [address] [place] [phone] Referral ID Status Reason Start Date Expiration Date Visits Re quested Visits Authorized [id number] 1 1 Reason Comments New Patient Had 2 mini strokes Specialty Diagnoses / Procedures Referred By Contac t Referred To Contact Neurology Diagnoses Aneurysm of vein iNck Calderon, PAC [address] [place] [phone] Referral ID Status Reason Start Date Expiration Date V isits Requested Visits Authorized [id number] New Request 11/19/2023 12/13/2024 1 1 Specialty Diagnoses / Procedures Referred By Contac t Referred To Contact Diagnoses S/P ascending aortic replacement Procedures CT ANGIO CHEST (NONCORONARY) [place] CT ANGIO, CHEST (NON-CORON), COMBO, INCL IMG PROC Gokul Cornejo, PAC [address] [place] [phone] Referral ID Status Reason Start Date Expiration Date Visits Re quested Visits Authorized [id number] Closed 11/15/2023 12/09/2024 1 1 Reason Comments New Patient Reason Comments Blurred Vision Right Eye Cloudy vision right eye Reason Comments After-cataract obscuring vision right ey e Blurred Vision Right Eye Difficulty Reading Right Eye Specialty Diagnoses / Procedures Referred By Contact Referred To Contact Ophthalmology / OPHTHALMOLOGY Diagnoses Other secondary cataract, right eye Scotoma involving central area, right eye Unspecified macular degeneration YAG Procedures POST-CATARACT LASER SURGERY LASER Tamra Haro MD [address] [place] [phone] [place] [address] Referral ID Status Reason Start Date Expiration Date V isits Requested Visits Authorized [id number] Authorized 01/14/2024 01/13/2025 2 2 Reason Comments OTHER Last injection left knee 09/26/23 Reason Comments Patient Question Reason Comments Follow-up Reason Comments Other Reason Comments Pain LT KNEE PAIN Reason Comments Pain Pain for past 2-3 we eks. Reason Comments Trouble Depth perception Reason Comments Follow-up RT LUL Reason Comments Follow-up RT HIP Follow-up MRI REVIEW RT LUL Care Teams (unrecognized sec tion and content) Team Status: Active Member Role Status Dates Dr. Chilango Welsh MD Primary Care Provider Active Team Status: Inactive Member Role Status Dates Dr. Chilango Welsh MD Primary Care Provider Active Start: February 04, 2025 End: February 04, 2025 Dr. Chilango Welsh MD Attending Provider Active Start: February 04, 2025 End: February 04, 2025 Dr. Chilango Welsh MD Referring Provider Active Start: February 04, 2025 End: February 04, 2025 Team Status: Active Member Role Status Dates Dr. Chilango Welsh MD Primary Care Provider Active Dr. Mathew Gonzalez MD Emergency Provider Active Dr. Nora Rivera , Admit Provider, Att ending Provider, Other Provider Active Team Status: Active Member Role Status Dates Dr. Chilango Welsh MD Primary Care Provider Active Dr. Mathew Gonzalez MD Emergency Provider Active Dr. Nora Rivera DO Admit Provider, Other Provider Ac tive Dr. Alfred Gutierrez MD Other Provider Active Dr. Richard Hogan MD Attending Provider Active Team Status: Active Member Role Status Dates Dr. Chilango Welsh MD Primary Care Provider Active Dr. Alfred Gutierrez MD Attending Provider Activ e Team Status: Active Member Role Status Dates Dr. Chilango Welsh MD Primary Care Provider Active Dr. Mathew Gonzalez MD Emergency Provider Active Dr. Nora Rivera DO Admit Provider, Other Provider Ac tive Dr. Alfred Gutierrez MD Other Provider Active Dr. Osmin Estrella MD Other Provider Active Dr. Richard Hogan MD Attending Provider Active Team Status: Inactive Member Role Status Dates Dr. Chilango Welsh MD Primary Care Provider, Attend ing Provider Active Team Status: Active Member Role Status Dates Dr. Chilango Welsh MD Primary Care Provider, Attend ing Provider Active Team Status: Inactive Member Role Status Dates Dr. Chilango Welsh MD Primary Care Provider Active Dr. Mathew Gonzalez MD Emergency Provider Active Dr. Nora Rivera DO Admit Provider, Other Provider Ac tive Dr. Alfred Gutierrez MD Other Provider Active Dr. Osmin Estrella MD Attending Provider Active Application Systems Engineer Relationship Specialty Start Date End Date Chilango Patino MD [address] [place] [address] PCP - General Family Medicine 09/07/15 Application Systems Engineer Relationship Specialty Start Date End Date Chilango Patino MD [address] [place] [address] PCP - General Family Medicine 09/07/15 Application Systems Engineer Relationship Specialty Start Date End Date Chilango Patino MD [address] [facility] [address] [place] [address] PCP - General Family Medicine 09/07/15 Application Systems Engineer Relationship Specialty Start Date End Date Chilango Patino MD [address] [place] [address] PCP - General Family Medicine 09/07/15 Application Systems Engineer Relationship Specialty Start Date End Date Chilango Patino MD [address] [facility] [address] [place] [address] PCP - General Family Medicine 09/07/15 Application Systems Engineer Relationship Specialty Start Date End Date Chilango Patino MD [address] [facility] [address] [place] [address] PCP - General Family Medicine 09/07/15 Application Systems Engineer Relationship Specialty Start Date End Date No, Physician [facility] PCP - General 11/07/21 Application Systems Engineer Relationship Specialty Start Date End Date No, Physician [facility] PCP - General 11/07/21 Application Systems Engineer Relationship Specialty Start Date End Date No, Physician [facility] PCP - General 11/07/21 Application Systems Engineer Relationship Specialty Start Date End Date Chilango Patino MD PCP - General Family Practice 05/06/14 Application Systems Engineer Relationship Specialty Start Date End Date Chilango Welsh MD [address] [facility] [address] [place] [address] PCP - General Endocrinology/Metabolism 12/30/21 Application Systems Engineer Relationship Specialty Start Date End Date Chilango Welsh MD [address] [facility] [address] [place], [place] [phone] PCP - General Endocrinology/Metabolism 12/30/21 Application Systems Engineer Relationship Specialty Start Date End Date Chilango Welsh MD [address] [facility] [address] [place], [place] [phone] PCP - General Endocrinology/Metabolism 12/30/21 Application Systems Engineer Relationship Specialty Start Date End Date Chilango Welsh MD [address] [facility] [address] [place], [place] [phone] PCP - General Endocrinology/Metabolism 12/30/21 Application Systems Engineer Relationship Specialty Start Date End Date Chilango Welsh MD [address] [facility] [address] [place], [place] [phone] PCP - General Endocrinology/Metabolism 12/30/21 Application Systems Engineer Relationship Specialty Start Date End Date Chilango Welsh MD [address] [facility] [address] [place], [place] [phone] PCP - General Endocrinology/Metabolism 12/30/21 Team Status: Inactive Member Role Status Dates Dr. Chilango Welsh MD Primary Care Pr ovider, Attending Provider, Referring Provider Active Application Systems Engineer Relationship Specialty Start Date End Date Chilango Welsh MD [address] [facility] [address] [place], [place] [phone] PCP - General Endocrinology/Metabolism 12/30/21 Application Systems Engineer Relationship Specialty Start Date End Date Chilango Welsh MD [address] [facility] [address] [place] [address] PCP - General Endocrinology/Metabolism 12/30/21 Team Status: Active Member Role Status Dates Dr. Chilango Welsh MD Primary Care Provider Active Dr. Mathew Gonzalez MD Emergency Provider Active Dr. Nora Rivera , Admit Provider, Attending Provide r Active Team Status: Active Member Role Status Dates Dr. Chilango Welsh MD Primary Care Provider Active Dr. Mathew Gonzalez MD Emergency Provider Active Dr. Nora Rivera , Admit Provider, Other Provider Ac tive Dr. Alfred Gutierrez MD Other Provider Active Dr. Osmin Estrella MD Attending Provider, Other Provider Active Application Systems Engineer Relationship Specialty Start Date End Date Chilango Welsh MD [address] [place] [address] [address] [place] [phone] PCP - General Family Medicine 10/22/23 Asaf Torres MD [address] [place] [address] PCP - Referring 1 Orthopaedic Surgery 10/22/23 Application Systems Engineer Relationship Specialty Start Date End Date Chilango Welsh MD [address] [place] [address] [address] [place] [phone] PCP - General Family Medicine 10/22/23 Asaf Torres MD [address] [place] [address] PCP - Referring 1 Orthopaedic Surgery 10/22/23 Ani Ríos MD (John) [address] [place] [address] [address] [place] [address] Cardiac Surgery 11/15/23 Martín Hogan PA-C [id number] [facility] [address] [place] [phone] Physician Unclaimed Property Officer 11/15/23 Application Systems Engineer Relationship Specialty Start Date End Date Chilango Welsh MD [address] [facility] [address] [place] [phone] PCP - General Family Medicine 10/22/23 Asaf Torres MD [address] [place] [address] PCP - Referring 1 Orthopaedic Surgery 10/22/23 Ani Ríos MD (John) [address] [facility] 3rd [place] [address] Cardiac Surgery 11/15/23 Martín Hogan PA-C [id number] [facility] [address] [place] [phone] Physician Unclaimed Property Officer 11/15/23 Application Systems Engineer Relationship Specialty Start Date End Date Chilango Welsh MD [address] [facility] [address] [place] [phone] PCP - General Family Medicine 10/22/23 Asaf Torres MD [address] [place] [address] PCP - Referring 1 Orthopaedic Surgery 10/22/23 Ani Ríos MD (John) [address] [facility] [address]rd [place] [address] Cardiac Surgery 11/15/23 Martín Hogan PA-C [id number] [facility] [address] [place] [phone] Physician Unclaimed Property Officer 11/15/23 Application Systems Engineer Relationship Specialty Start Date End Date Chilango Welsh MD [address] [facility] [address] [place] [phone] PCP - General Family Medicine 10/22/23 Asaf Torres MD [address] [place] [address] PCP - Referring 1 Orthopaedic Surgery 10/22/23 Ani Ríos MD (John) [address] [facility] [address]rd [place] [address] Cardiac Surgery 11/15/23 Martín Hogan PA-C [id number] [facility] [address] [place] [phone] Physician Unclaimed Property Officer 11/15/23 Team Status: Inactive Member Role Status Dates Dr. Chilango Welsh MD Primary Care Provider, Referr ing Provider Active Dr. Richard Hogan MD Attending Provider Active Team Status: Active Member Role Status Dates Dr. Chilango Welsh MD Primary Care Provider Active Kate Murphy Attending Provider Active Team Status: Active Member Role Status Dates Dr. Chilango Welsh MD Primary Care Provider Active Dr. Richard Hogan MD Attending Provider Active Team Status: Inactive Member Role Status Dates Dr. Chilango Welsh MD Primary Care Provider Active Dr. Richard Hogan MD Attending Provider, Referring Provider Active Team Status: Active Member Role Status Dates Dr. Chilango Welsh MD Primary Care Provider Active Dr. Richard Hogan MD Attending Provider, Referring Provider Active Application Systems Engineer Relationship Specialty Start Date End Date Chilango Welsh MD [address] [facility] [address] [place] [address] PCP - General Family Medicine 11/28/23 Application Systems Engineer Relationship Specialty Start Date End Date Chilango Welsh MD [address] [facility] [address] [place] [address] PCP - General Family Medicine 11/28/23 Application Systems Engineer Relationship Specialty Start Date End Date Chilango Welsh MD [address] [facility] [address] [place], [place] [phone] PCP - General Endocrinology/Metabolism 12/30/21 Application Systems Engineer Relationship Specialty Start Date End Date Chilango Patino MD PCP - General Family Medicine 05/06/14 11/27/23 Chilango Welsh MD [address] [facility] [address] [place] [address] PCP - General Family Medicine 11/28/23 Application Systems Engineer Relationship Specialty Start Date End Date Chilango Welsh MD [address] [facility] [address] [place] [address] PCP - General Family Medicine 10/22/23 Asaf Torres MD [address] [place] [address] PCP - Referring 1 Orthopaedic Surgery 10/22/23 Ani Ríos MD (John) [address] [place] [address] 3rd [place] [address] Cardiac Surgery 11/15/23 Martín Hogan PA-C [id number] [facility] [address] [place] [phone] Physician Unclaimed Property Officer 11/15/23 Application Systems Engineer Relationship Specialty Start Date End Date Chilango Welsh MD [address] [facility] [address] [place] [phone] PCP - General Family Medicine 10/22/23 Asaf Torres MD [address] [place] [address] PCP - Referring 1 Orthopaedic Surgery 10/22/23 Ani Ríos MD (John) [address] [facility] 3rd [place] [address] Cardiac Surgery 11/15/23 Martín Hogan PA-C [id number] [facility] [address] [place] [phone] Physician Unclaimed Property Officer 11/15/23 Application Systems Engineer Relationship Specialty Start Date End Date Chilango Welsh MD [address] [facility] [address] [place] [phone] PCP - General Family Medicine 10/22/23 Asaf Torres MD [address] [place] [address] PCP - Referring 1 Orthopaedic Surgery 10/22/23 Ani Ríos MD (John) [address] [facility] [address]rd [place], [place] [id number] Cardiac Surgery 11/15/23 Martín Hogan PA-C [address] [place] [address] [address] [place] [phone] Physician Unclaimed Property Officer 11/15/23 Application Systems Engineer Relationship Specialty Start Date End Date Chilango Welsh MD 128 [facility] [address] [place] [address] PCP - General Endocrinology/Metabolism 12/30/21 Application Systems Engineer Relationship Specialty Start Date End Date Chilango Welsh MD [address] [facility] [address] [place] [address] PCP - General Endocrinology/Metabolism 12/30/21 Application Systems Engineer Relationship Specialty Start Date End Date Chilango Welsh MD [address] [place] [address] [address] [place] [address] PCP - General Family Medicine 10/22/23 Asaf Torres MD [address] [place] [address] PCP - Referring 1 Orthopaedic Surgery 10/22/23 Ani Ríos MD (John) [address] [facility] 3rd Floor [place], [place] [id number] Cardiac Surgery 11/15/23 Martín Hogan PA-C [address] [place] [address] [address] [place] [phone] Physician Unclaimed Property Officer 11/15/23 Application Systems Engineer Relationship Specialty Start Date End Date Chilango Welsh MD [address] [place], [place] [address] [place] [address] PCP - General Family Medicine 11/28/23 Application Systems Engineer Relationship Specialty Start Date End Date Chilango Welsh MD PCP - General Family Medicine 10/22/23 Asaf Torres MD [address] [place] [address] PCP - Referring 1 Orthopaedic Surgery 10/22/23 Ani Ríos MD (John) [address] [place] [address] Cardiac Surgery 11/15/23 Martín Hogan PA-C [address] [facility] [address] [place] [address] Physician Unclaimed Property Officer 11/15/23 Application Systems Engineer Relationship Specialty Start Date End Date Chilango Welsh MD PCP - General Family Medicine 10/22/23 Asaf Torres MD [address] [place] [address] PCP - Referring 1 Orthopaedic Surgery 10/22/23 Ani Ríos MD (John) [address]rd [place] [address] Cardiac Surgery 11/15/23 Martín Hogan PA-C [address]rd [place] [address] Physician Unclaimed Property Officer 11/15/23 Application Systems Engineer Relationship Specialty Start Date End Date Chilango Welsh MD PCP - General Family Medicine 10/22/23 Asaf Torres MD [address] [place] [address] PCP - Referring 1 Orthopaedic Surgery 10/22/23 Ani Ríos MD (John) [address]rd [place] [address] Cardiac Surgery 11/15/23 Martín Hogan PA-C [address] [place] [address] Physician Unclaimed Property Officer 11/15/23 Application Systems Engineer Relationship Specialty Start Date End Date Chilango Welsh MD [address] [place] [address] PCP - General Endocrinology/Metabolism 12/30/21 Application Systems Engineer Relationship Specialty Start Date End Date Chilango Welsh MD PCP - General Family Medicine 10/22/23 Asaf Torres MD [address] [place] [address] PCP - Referring 1 Orthopaedic Surgery 10/22/23 Ani Ríso MD (John) [address] [place] [address] Cardiac Surgery 11/15/23 Martín Hogan PA-C [address] [place] [address] Physician Unclaimed Property Officer 11/15/23 Application Systems Engineer Relationship Specialty Start Date End Date Chilango Welsh MD [address] [place] [address] [address] [place], [place] [address]951 PCP - General Family Medicine 02/06/25 Application Systems Engineer Relationship Specialty Start Date End Date Chilango Welsh MD [address] [place] [address] [address] [place], [place] [address]661 PCP - General Endocrinology/Metabolism 12/30/21 Application Systems Engineer Relationship Specialty Start Date End Date Chilango Welsh MD [address] [place] [address] [address] [place] [address] PCP - General Endocrinology/Metabolism 12/30/21 Application Systems Engineer Relationship Specialty Start Date End Date Chilango Welsh MD [address] [place] [address] [address] [place] [address] PCP - General Endocrinology/Metabolism 12/30/21 Team Status: Active Member Role/Relationship Status Dates Dr. Chilango Welsh MD Primary Care Provider Active Team Status: Inactive Member Role/Relationship Status Dates Dr. Chilango Welsh MD Primary Care Provider Active Start: February 04, 2025 End: February 04, 2025 Dr. Chilango Welsh MD Attending Provider Active Start: February 04, 2025 End: February 04, 2025 Dr. Chilango Welsh MD Referring Provider Active Start: February 04, 2025 End: February 04, 2025 Team Status: Inactive Member Role/Relationship Status Dates Dr. Chilango Welsh MD Primary Care Provider Active Start: March 11, 2025 End: March 11, 2025 Dr. Chilango Welsh MD Referring Provider Active Start: March 11, 2025 End: March 11, 2025 Dr. Richard Hogan MD Attending Provider Active Start: March 11, 2025 End: March 11, 2025 Source Comments (unrecognize d section and content) In the event this informatio n is protected by the Federal Confidentiality of Alcohol and Drug Abuse Patient Records regulations: The Federal rules restrict any use of the information to criminally investigate or prosecute any alcohol or drug abuse patient.[facility] the event this information is protected by the Federal Confidentiality of Alcohol and Drug Abuse Patient Records regulations: The Federal rules restrict any use of the information to criminally investigate or prosecute any alcohol or drug abuse patient.[facility] the event this information is protected by the Federal Confidentiality of Alcohol and Drug Abuse Patient Records regulations: The Federal rules restrict any use of the information to criminally investigate or prosecute any alcohol or drug abuse patient.[facility] the event this information is protected by the Federal Confidentiality of Alcohol and Drug Abuse Patient Records regulations: The Federal rules restrict any use of the information to criminally investigate or prosecute any alcohol or drug abuse patient.[facility] the event this information is protected by the Federal Confidentiality of Alcohol and Drug Abuse Patient Records regulations: The Federal rules restrict any use of the information to criminally investigate or prosecute any alcohol or drug abuse patient.[facility] <item><item> Privacy Markings (unrecogniz ed [...] you with the consent of such client. Goals (unrecognized section and content) Goals may be documented in a n alternate sectionGoals may be documented in an alternate sectionGoals may be documented in an alternate sectionGoals may be documented in an alternate sectionGoals may be documented in an alternate sectionGoals may be documented in an alternate sectionGoals may be documented in an alternate section Scheduled Active and Recently Administ ered Medications (unrecognized section and content) Medication Order 10/21/2023 10/22/2023 10/23/2023 aspirin chewable tablet 81 mg 81 mg, Oral, DAILY, First dose on Sun10/20/23 at 0900, Until Discontinued 08 (Given - Provider: Irene Valencia RN) 0748 (Given - Provider: Flynn Thakur, RN) 0849 (Given - Provider: Richardson Del Valle Student Nurse) Enoxaparin Sodium (LOVENOX) injection 40 mg 40 mg, Subcutaneous, DAILY, First dose on Sun10/23/23 at 0900, Until Discontinued, Indications: DVT/PE prophylaxis 0851 (Given - Provider: Juan Brooks Nurse) Gadopiclenol SOLN 1-25 mL (COMPLETED) 1-25 mL, Intravenous, ONCE, 1 dose, On Sun10/21/23 at 1730 1755 (Given - Provider: Steven Fraser) Metoprolol (LOPRESSOR) tablet 12.5 mg 12.5 mg, Oral, EVERY 12 HOURS, First dose on Sun10/20/23 at 0900, Until Discontinued, Hold if HR <55 08 (Given - Provider: Irene Valencia RN)2126 (Given - Provider: Britney Rodriguez, LORE) 0746 (Hold - Provider: Flynn Thakur RN - Reason: Contraindicated - Comment: HR 50)2140 (Given - Provider: Britney Rodriguez, LORE) 0850 (Given - Provider: Juan Brooks Nurse) Rosuvastatin (CRESTOR) tablet 10 mg (CANCELED) 10 mg, Oral, DAILY, First dose (after last modification) on Sun10/20/23 at 0900, Until Discontinued 08 (Given - Provider: Irene Valencia RN) 0748 (Given - Provider: Flynn Thakur, LORE) Rosuvastatin (CRESTOR) tablet 20 mg 20 mg, Oral, DAILY, First dose (after last modification) on Sun10/23/23 at 0900, Until Discontinued 0851 (Given - Provider: uJan Brooks) Continuous Medication Order 10/21/2023 10/22/2023 10/23/2023 Heparin 25,000 units in dextrose 5% 250 mL premix infusion (CANCELED) INTERMEDIATE/CARDIAC SLIDING SCALE FOR PATIENTS EQUAL TO OR GREATER THAN 65KG: Initiate dose at 12 units/kg/hr. If PTT is less than 47, increase dose by 3 units/kg/hr. If PTT is 47-60, increase dose by 2 units/kg/hr. If PTT is 61-71, increase dose by 1 unit/kg/hr. If PTT is 72-95, no change. If PTT is 96-111, decrease dose by 1 unit/kg/hr. If PTT is 112-126, hold infusion for 60 minutes and decrease dose by 2 units/kg/hr. If PTT greater than 126, hold infusion and check PTT every 2 hours. Once PTT is in goal range or below, restart infusion at 3 units/kg/hr lower than the most recent dose. Note: Round PTT to nearest whole number (e.g. 70.5=71, 70.4=70)., Indications: Acute Coronary Syndrome 0042 ($$New Bag$$ - Provider: Elaine Jones RN)0044 (Paused - Provider: Elaine Jones RN)0046 (Restarted - Provider: Elaine Jones RN)0148 (Rate/Dose Verify - Provider: Elaine Jones RN)0640 (Paused - Provider: Elaine Jones RN)0641 (Restarted - Provider: Elaine Jones RN)0644 (Rate/Dose Verify - Provider: Elaine Jones RN)1000 (Rate/Dose Verify - Provider: Irene Valencia RN)1300 (Rate/Dose Verify - Provider: Irene Valencia RN)1400 (Rate/Dose Verify - Provider: Irene Valencia RN)1821 ($$New Bag$$ - Provider: Irene Valencia RN)1853 (Rate/Dose Verify - Provider: Irene Valencia RN)1926 (Rate/Dose Change - Provider: Britney Rodriguez RN)1931 (Rate/Dose Verify - Provider: Britney Rodriguez RN) 0022 (Rate/Dose Verify - Provider: Britney Rodriguez RN)0202 (Rate/Dose Verify - Provider: Britney Rodriguez RN)0430 (Rate/Dose Verify - Provider: Britney Rodriguez RN)0527 ($$New Bag$$ - Provider: Britney Rodriguez RN)0734 (Rate/Dose Verify - Provider: Flynn Thakur RN)1036 (Rate/Dose Verify - Provider: Flynn Thakur RN)1125 (Rate/Dose Change - Provider: Flynn Thakur RN)1126 (Rate/Dose Verify - Provider: Flynn Thakur RN)1153 (Stopped - Provider: Flynn Thakur RN - Comment: stopped per paving and surfacing labourer RN) Sodium chloride 0.9% IV solution () 1.5 mL/kg/hr 88.9 kg Dosing weight (133.35 mL/hr, rounded to 133.4 mL/hr), Intravenous, CONTINUOUS, Starting on Sun10/22/23 at 1400, Until Sun10/22/23 at 1959, Post-op/Post-Proc 1404 ($$New Bag$$ - Provider: Flynn Thakur RN)1821 (Rate/Dose Verify - Provider: Flynn Thakur RN)1953 (Stopped - Provider: Britney Rodriguez RN) PRN Medication Order 10/21/2023 10/22/2023 10/23/2023 Acetaminophen (TYLENOL) tablet 650 mg 650 mg, Oral, EVERY 6 HOURS NEEDED, Starting on Sun10/19/23 at 2247, Until Sun10/23/23 at 1331, Mild Pain, Oral temp > 100.4 F, Maximum dose of acetaminophen is 4000 mg from all sources in 24 hours. alum/mag hydrox.-simethicone oral suspension 30 mL 30 mL, Oral, EVERY 6 HOURS NEEDED, Starting on Sun10/19/23 at 2247, Until Sun10/23/23 at 1331, Indigestion, Per 5 mL is equivalent to: (Alum-Mag Hydroxide 200-225 mg and Simethicone 20 mg) and (Alum-Mag Hydroxide 200-200 mg and Simethicone 20 mg) fentaNYL (SUBLIMAZE) injection (CANCELED) Administer over 2 Minutes, NEEDED, Starting on Sun10/22/23 at 1217, Until Sun10/22/23 at 1320, Intra-op/Intra-Proc 1217 (Given - Provider: Luis Avina RN) guaiFENesin (ROBITUSSIN) oral solution 400 mg 400 mg, Oral, EVERY 6 HOURS NEEDED, Starting on Sun10/19/23 at 2247, Until Sun10/23/23 at 1331, Cough, Congestion Heparin injection (CANCELED) NEEDED, Starting on Sun10/22/23 at 1228, Until Sun10/22/23 at 1320, Intra-op/Intra-Proc 1228 (Given - Provider: Luis Avina RN)1246 (Given - Provider: Luis Avina RN) iodixanol (VISIPAQUE) injection 320 mg/mL for [facility] IR (CANCELED) NEEDED, Starting on Sun10/22/23 at 1307, Until Sun10/22/23 at 1320, Intra-op/Intra-Proc 1307 (Given - Provider: Calin Cobb MD) Lidocaine 2 % injection (CANCELED) NEEDED, Starting on Sun10/22/23 at 1223, Until Sun10/22/23 at 1320, Intra-op/Intra-Proc 1223 (Given - Provider: Calin Cobb MD) magnesium oxide (MAG-OX) tablet 800 mg 800 mg, Oral, ADMINISTER DIRECTED, Starting on Sun10/23/23 at 0645, Until Sun10/23/23 at 1331, See admin instructions, For Magnesium 1.6 - 2.0, give 800 mg of Magnesium oxide. 0650 (Given - Provid er: Britney Rodriguez RN) Magnesium sulfate 4 g in sterile water 50 ml premix IVPB 4 g, Intravenous, Administer over 4 Hours, ADMINISTER DIRECTED, Starting on Sun10/23/23 at 0645, Until Tu10/23/23 at 1331, Other, Magnesium Replacement Therapy, If Magnesium less than 1.6, give 4 g Magnesium Sulfate IVPB over 4 hours (may give over 1 hour if arrhythmias present). Melatonin tablet 6 mg 6 mg, Oral, DAILY AT BEDTIME NEEDED, Starting on Sun10/19/23 at 2247, Until Sun10/23/23 at 1331, Insomnia midazolam (VERSED) injection (CANCELED) NEEDED, Starting on Sun10/22/23 at 1217, Until Sun10/22/23 at 1320, Intra-op/Intra-Proc 1217 (Given - Provider: Luis Avina RN) Ondansetron (ZOFRAN) tablet 4 mg(Linked Group 1) 4 mg, Oral, EVERY 6 HOURS NEEDED, Starting on Sun10/19/23 at 2247, Until Sun10/23/23 at 1331, Nausea / Vomiting, 1st line for Nausea/Vomiting Ondansetron 4mg/2ml (ZOFRAN) injection 4 mg(Linked Group 1) 4 mg, Intravenous, EVERY 6 HOURS NEEDED, Starting on Sun10/19/23 at 2247, Until Sun10/23/23 at 1331, Nausea / Vomiting, 1st line for Nausea/Vomiting Polyethylene glycol (MIRALAX) packet 17 g 17 g, Oral, DAILY NEEDED, Starting on Sun10/19/23 at 2247, Until Sun10/23/23 at 1331, Constipation 1st Line Potassium chloride (K-DUR) tablet ER 20-40 mEq 20-40 mEq, Oral, ADMINISTER DIRECTED, Starting on Sun10/23/23 at 0645, Until Sun10/23/23 at 1331, See admin instructions, If SCr 2.0 - 2.5 mg/dL 1. For Potassium 3.6-4.0, give 20 mEq potassium chloride. 2. If Potassium less than 3.6, give 40 mEq potassium chloride, recheck in AM. If SCr greater than 2.5 and potassium less than 4.0, Contact MD/IVANA for replacement order. Potassium chloride (K-DUR) tablet ER 40-60 mEq 40-60 mEq, Oral, ADMINISTER DIRECTED, Starting on Sun10/23/23 at 0645, Until Sun10/23/23 at 1331, See admin instructions, If SCr less than 2.0 mg/dL 1. For Potassium 3.6 - 4.0, give 40 mEq of Potassium Chloride orally, recheck in the AM. 2. For Potassium less than 3.6, give 60 mEq Potassium Chloride orally, recheck in 8 hours. If potassium is low please administer magnesium first if indicated. Promethazine (PHENERGAN) suppository 25 mg(Linked Group 2) 25 mg, Rectal, EVERY 6 HOURS NEEDED, Starting on Sun10/19/23 at 2247, Until Sun10/23/23 at 1331, Refractory Nausea Vomiting, 2nd line for nausea/vomiting Promethazine (PHENERGAN) tablet 25 mg(Linked Group 2) 25 mg, Oral, EVERY 6 HOURS NEEDED, Starting on Sun10/19/23 at 2247, Until Sun10/23/23 at 1331, Refractory Nausea Vomiting, 2nd line for nausea/vomiting Sodium chloride 0.9% IV solution 250 mL Intravenous, at 20 mL/hr, NEEDED, Starting on Sun10/19/23 at 2247, Until Sun10/23/23 at 1331, Carrier Fluid - See Admin. Inst, 250mL 0.9NS to be used as carrier fluid for intermittent small volume or piggyback medication administration as needed. Infusion rate of the carrier fluid should be set at 20 mL/hr unless the rate as the intermittent medication is less than 20 mL/hr. For intermittent medications with a rate less than 20 mL/hr set the carrier fluid at that rate of the intermittent or piggy back medication. Linked Groups Order Group 1: Ondansetron 4mg/2ml (ZOFRAN) injection 4 mgJump to med 4 mg, Intravenous, EVERY 6 HOURS NEEDED, Starting on Sun10/19/23 at 2247, Until Sun10/23/23 at 1331, Nausea / Vomiting, 1st line for Nausea/Vomiting Or Ondansetron (ZOFRAN) tablet 4 mgJump to med 4 mg, Oral, EVERY 6 HOURS NEEDED, Starting on Sun10/19/23 at 2247, Until Sun10/23/23 at 1331, Nausea / Vomiting, 1st line for Nausea/Vomiting Group 2: Promethazine (PHENERGAN) tablet 25 mgJump to med 25 mg, Oral, EVERY 6 HOURS NEEDED, Starting on Sun10/19/23 at 2247, Until Sun10/23/23 at 1331, Refractory Nausea Vomiting, 2nd line for nausea/vomiting Or Promethazine (PHENERGAN) suppository 25 mgJump to med 25 mg, Rectal, EVERY 6 HOURS NEEDED, Starting on Sun10/19/23 at 2247, Until Sun10/23/23 at 1331, Refractory Nausea Vomiting, 2nd line for nausea/vomiting Scheduled Medication Order 11/17/2023 11/18/2023 11/19/2023 AMIOdarone (PACERONE) tablet 200 mg(Linked Group 1) 200 mg, Oral, DAILY, 9 doses, First dose on 11/17/23 at 0900, Last dose on 11/25/23 at 0900, Post-op/Post-Proc 0739 (Given - Provider: Bety Chung RN) 0824 (Given - Provider: Donna Esquivel, LORE) 0921 (Given - Provider: Aparna Desai, LORE) Aspirin tablet 325 mg 325 mg, Oral, DAILY, First dose on Sun11/14/23 at 0900, Until Discontinued, Post-op/Post-Proc 0738 (Given - Provider: Bety Chung RN) 0824 (Given - Provider: Donna Esquivel RN) 0922 (Given - Provider: Aparna Desai, LORE) bisacodyl (DULCOLAX) suppository 10 mg 10 mg, Rectal, DAILY, First dose on Sun11/16/23 at 0900, Until Discontinued, Hold for loose stools or positive bowel movement in the last 48 hours., Post-op/Post-Proc 0739 (Not Given - Provider: Bety Chung RN - Reason: Patient with symptoms) 0825 (Not Given - Provider: Donna Esquivel RN - Reason: Patient/family refused) 0922 (Not Given - Provider: pAarna Desai RN - Reason: Patient/family refused) furOSEmide (LASIX) tablet 20 mg (CANCELED) 20 mg, Oral, DAILY, First dose on Sun11/17/23 at 0900, Until Discontinued 0738 (Given - Provider: Bety Chung RN) Gadopiclenol SOLN 1-25 mL (COMPLETED) 1-25 mL, Intravenous, ONCE, 1 dose, On Sun11/18/23 at 2245 2236 (Given - Provider: Flor Sahu) Heparin injection 5,000 Units 5,000 Units, Subcutaneous, EVERY 8 HOURS (0800/1600/2200), First dose on Sun11/14/23 at 1600, Until Discontinued, Post-op/Post-Proc 0736 (Given - Provider: Bety Chung RN)1607 (Given - Provider: Donna Esquivel, LORE)2102 (Given - Provider: Zaina Valderrama RN) 0824 (Given - Provider: Donna Esquivel RN)1641 (Given - Provider: Donna Esquivel, LORE)2338 (Given - Provider: Vi Carvajal RN) 0921 (Given - Provider: Aparna Desai, LORE) magnesium oxide (MAG-OX) tablet 400 mg 400 mg, Oral, 2 TIMES DAILY, First dose on Sun11/16/23 at 0900, Until Discontinued 0738 (Given - Provider: Bety Chung RN)1607 (Given - Provider: Donna Esquivel, LORE) 0824 (Given - Provider: Donna Esquivel RN)1641 (Not Given - Provider: Donna Esquivel RN - Reason: NPO) 0921 (Given - Provider: Aparna Desai, RN) Magnesium sulfate 4 g in sterile water 50 ml premix IVPB (COMPLETED) 4 g, Intravenous, Administer over 4 Hours, ONCE, 1 dose, On 11/17/23 at 1200 1352 ($$New Bag$$ - Provider: Bety Cuhng RN)1752 (Stopped - Provider: Donna Esquivel RN) Metoprolol (LOPRESSOR) tablet 12.5 mg (CANCELED) 12.5 mg, Oral, EVERY 12 HOURS, First dose on Fatimah 11/15/23 at 2100, Until Discontinued, Hold for SBP < 100 and HR < 60, On hold since 11/17/2023 at 1133 until manually unheld 0740 (Given - Provider: Bety Chung RN - Comment: BP 106/58)1133 (Held by provider - Provider: Pasha Malhotra PA-C - Reason: Other)2100 (Automatically Held - Provider: Pasha Malhotra PA-C) 0900 (Automatically Held - Provider: Pasha Malhotra PA-C)0956 (Unheld by provider - Provider: Pasha Malhotra PA-C) Multi-Vitamins tablet 1 tablet(Linked Group 2) 1 tablet, Oral, DAILY, First dose on Sun11/14/23 at 0900, Until Discontinued, Use PO route if patient tolerating PO., Post-op/Post-Proc 0738 (Given - Provider: Bety Chung RN) 0824 (Given - Provider: Donna Esquivel RN) 0922 (Given - Provider: Aparna Desai, LORE) Polyethylene glycol (MIRALAX) packet 17 g 17 g, Oral, 2 TIMES DAILY, First dose on Sun11/14/23 at 0900, Until Discontinued, Hold for loose stools or positive bowel movement in the last 48 hours., Post-op/Post-Proc 0739 (Not Given - Provider: Bety Chung RN - Reason: Patient with symptoms)1608 (Not Given - Provider: Donna Esquivel RN - Reason: Order Parameters not met) 0825 (Not Given - Provider: Donna Esquivel RN - Reason: Patient/family refused)1641 (Not Given - Provider: Donna Esquivel RN - Reason: NPO) 0921 (Given - Provider: Aparna Desai, LORE) Rosuvastatin (CRESTOR) tablet 20 mg 20 mg, Oral, Nightly, First dose on Sun11/14/23 at 2100, Until Discontinued 210 (Given - Provider: Zaina Valderrama, LORE) 2326 (Not Given - Provider: Vi Carvajal RN - Reason: Other - Comment: PT NPO) Senna (SENOKOT) tablet 8.6 mg 8.6 mg, Oral, EVERY 12 HOURS, First dose on Sun11/14/23 at 0900, Until Discontinued, Hold for loose stools or positive bowel movement in the last 48 hours., Post-op/Post-Proc 0740 (Not Given - Provider: Bety Chung RN - Reason: Patient with symptoms)210 (Not Given - Provider: Zaina Valderrama RN - Reason: Order Parameters not met) 0825 (Not Given - Provider: Donna Esquivel RN - Reason: Patient/family refused)2326 (Not Given - Provider: Vi Carvajal RN - Reason: Patient/family refused) 0922 (Given - Provider: Aparna Desai, LORE) PRN Medication Order 11/17/2023 11/18/2023 11/19/2023 Acetaminophen (TYLENOL) tablet 650 mg(Linked Group 3) 650 mg, Oral, EVERY 4 HOURS NEEDED, Starting on 11/17/23 at 0000, Until 11/19/23 at 1554, Mild Pain, Moderate Pain, Severe Pain, Oral temp > 100.4 F, For mild, moderate, or severe pain (DVPRS) or CPOT greater than 2. Ok to give with opioid if frequency allows., Post-op/Post-Proc Calcium Gluconate 10 % injection 2 g(Linked Group 4) 2 g, Intravenous, ADMINISTER DIRECTED, Starting on 11/13/23 at 1532, Until Sun11/19/23 at 1554, See admin instructions, 1. If ionized Calcium 4.1-4.5, give 2.0 gm of Calcium Gluconate IV Push over 10 minutes 2. If Calcium less than or equal to 4.0, give 4 gm Calcium Gluconate/250 mL NS IVPB over 1 hour and recheck 1 hour after completion of infusion. Repeat labs in AM. Extravasation Risk, Post-op/Post-Proc 0237 (See Alternative - Provider: Rosaline Siddiqui RN)0300 (See Alternative - Provider: Rosaline Siddiqui RN)0328 (See Alternative - Provider: Rosaline Siddiqui RN) Calcium Gluconate 4 g in Sodium chloride 0.9%, with overfill 150 mL (total volume) IVPB(Linked Group 4) 4 g, Intravenous, Administer over 60 Minutes, ADMINISTER DIRECTED, Starting on Sun11/13/23 at 1532, Until Sun11/19/23 at 1554, See admin instructions, 1. If ionized Calcium 4.1-4.5, give 2.0 gm of Calcium Gluconate IV Push over 10 minutes 2. If Calcium less than or equal to 4.0, give 4 gm Calcium Gluconate/250 mL NS IVPB over 1 hour and recheck 1 hour after completion of infusion. Repeat labs in AM. Extravasation Risk, Post-op/Post-Proc 0237 ($$New Bag$$ - Provider: Rosaline Siddiqui RN)0300 (Rate/Dose Verify - Provider: Rosaline Siddiqui RN)0328 (Stopped - Provider: Rosaline Siddiqui RN) Magnesium sulfate 4 g in sterile water 50 ml premix IVPB 4 g, Intravenous, Administer over 4 Hours, ADMINISTER DIRECTED, Starting on Sun11/13/23 at 1532, Until Sun11/19/23 at 1554, Other, Magnesium replacement therapy:, 1. If Magnesium 1.7-2.4, Give 4 g Magnesium Sulfate IVPB. 2. If Magnesium less than or equal to 1.6, Give 8g Magnesium Sulfate IVPB. 3. Recheck Magnesium level 4 hours after completion of infusion., Post-op/Post-Proc 0234 ($$New Bag$$ - Provider: Rosaline Siddiqui RN)0300 (Rate/Dose Verify - Provider: Rosaline Siddiqui RN)0400 (Rate/Dose Verify - Provider: Rosaline Siddiqui RN)0500 (Rate/Dose Verify - Provider: Rosaline Siddiqui RN)0600 (Rate/Dose Verify - Provider: Rosaline Siddiqui RN)0605 (Paused - Provider: Rosaline Siddiqui RN)0618 (Restarted - Provider: Rosaline Siddiqui RN)0649 (Stopped - Provider: Rosaline Siddiqui RN) 0307 ($$New Bag$$ - Provider: Zaina Valderrama, RN)0707 (Stopped - Provider: Donna Esquivel RN) Melatonin tablet 6 mg 6 mg, Oral, DAILY AT BEDTIME NEEDED, Starting on 11/17/23 at 2357, Until Sun11/19/23 at 1554, Insomnia 0038 (Given - Provider: Zaina Valderrama, RN) Methocarbamol (ROBAXIN) tablet 500 mg 500 mg, Oral, 3 TIMES DAILY NEEDED, Starting on Fatimah 11/15/23 at 0248, Until Sun11/19/23 at 1554, Muscle spasms, Moderate Pain Ondansetron 4mg/2ml (ZOFRAN) injection 4 mg 4 mg, Intravenous, EVERY 4 HOURS NEEDED, Starting on Sun11/13/23 at 1532, Until Sun11/19/23 at 1554, Nausea / Vomiting, Post-op/Post-Proc oxyCODONE (ROXICODONE) tablet 5 mg(Linked Group 5) 5 mg, Oral, EVERY 4 HOURS NEEDED, Starting on 11/13/23 at 1532, Until Sun11/19/23 at 1554, Moderate Pain, Severe Pain, PRN for moderate pain or severe pain (DVPRS) or CPOT>2. Use first if PO/NG administration available., Post-op/Post-Proc Polyvinyl Alcohol-Povidone PF (REFRESH) ophthalmic solution 1 drop 1 drop, Both Eyes, NEEDED, Starting on Sun11/16/23 at 1124, Until Sun11/19/23 at 1554, Dry Eyes, Patient may self-administer. Potassium Bicarb-Citric Acid (Effer-K) 20 MEQ effervescent tablets for oral solution 20 mEq 20 mEq, Oral, ADMINISTER DIRECTED, Starting on Fatimah 11/15/23 at 1510, Until Sun11/19/23 at 1554, Low Potassium / RENAL DOSAGE, 1. If Creatinine 2.0-2.5 mg/dL and/or urine output less than 30 mL/hour. 2. Potassium Less than 3.6, give 20 mEq Potassium Chloride, recheck in 8 hours. 3. If Creatinine greater than 2.5 consult critical care team for Potassium less than 4.0 for replacement orders. 4. If Potassium low, replace magnesium first if indicated. Do not swallow whole. Dissolve completely in 3-4 ounces of water or cold juice before drinking. If administering via J tube, dilute in sterile water, wait for tablet to stop fizzing, swirl the solution and draw into a syringe suitable for attaching to the tube. After administration, flush tube with 15-30 ml water., Post-op/Post-Proc Potassium Bicarb-Citric Acid (Effer-K) 20 MEQ effervescent tablets for oral solution 20-60 mEq 20-60 mEq, Oral, ADMINISTER DIRECTED, Starting on Fatimah 11/15/23 at 1510, Until 11/19/23 at 1554, Other, See administration instructions, 1. If Creatinine less than 2.0 mg/dL and/or urine output greater than 30 mL/hour. 2. If Potassium is 4.1-4.4, give 20 mEq Potassium Chloride oral. 3. If Potassium is 3.6-4.0, give 40 mEq Potassium Chloride oral. 4. If Potassium less than 3.6, give 60 mEq Potassium Chloride orally, recheck in 8 hours. 5. If Potassium low, replace Magnesium first if indicated. Do not swallow whole. Dissolve completely in 3-4 ounces of water or cold juice before drinking. If administering via J tube, dilute in sterile water, wait for tablet to stop fizzing, swirl the solution and draw into a syringe suitable for attaching to the tube. After administration, flush tube with 15-30 ml water., Post-op/Post-Proc 0229 (Given - Provider: Rosaline Siddiqui RN) 0258 (Given - Provider: Zaina Valderrama RN) Potassium chloride (K-DUR) tablet ER 20 mEq 20 mEq, Oral, ADMINISTER DIRECTED, Starting on Fatimah 11/15/23 at 1510, Until 11/19/23 at 1554, See admin instructions, RENAL DOSAGE, 1. If Creatinine 2.0-2.5 mg/dL and/or urine output less than 30 mL/hour. 2. Potassium Less than 3.6, give 20 mEq Potassium Chloride, recheck in 8 hours. 3. If Creatinine greater than 2.5 consult critical care team for Potassium less than 4.0 for replacement orders. 4. If Potassium low, replace magnesium first if indicated., Post-op/Post-Proc Potassium chloride (K-DUR) tablet ER 20-60 mEq 20-60 mEq, Oral, ADMINISTER DIRECTED, Starting on Fatimah 11/15/23 at 1510, Until Sun11/19/23 at 1554, See admin instructions, 1. If Creatinine less than 2.0 mg/dL and/or urine output greater than 30 mL/hour. 2. If Potassium is 4.1-4.4, give 20 mEq Potassium Chloride oral. 3. If Potassium is 3.6-4.0, give 40 mEq Potassium Chloride oral. 4. If Potassium less than 3.6, give 60 mEq Potassium Chloride orally, recheck in 8 hours. 5. If Potassium low, replace Magnesium first if indicated., Post-op/Post-Proc Prochlorperazine (COMPAZINE) injection 10 mg 10 mg, Intravenous, EVERY 4 HOURS NEEDED, Starting on Sun11/16/23 at 1103, Until Sun11/19/23 at 1554, Nausea / Vomiting, Refractory Nausea Vomiting, For IV route: dilute dose with 10mL normal saline and give by slow IV push at a rate of 5mg/min. Maximum of 40mg/day. 0645 (Given - Provider: Rosaline Siddiqui RN) Sodium chloride (PF) 0.9 % injection 1-100 mL (COMPLETED) 1-100 mL, Intravenous, ONCE NEEDED, 1 dose, Starting on Sun11/18/23 at 2239, Until Sun11/18/23 at 2236, Flush, MR Procedure 2236 (Given - Provider: Flor Sahu) Sodium chloride 0.9% IV solution 250 mL Intravenous, at 20 mL/hr, NEEDED, Starting on Tu11/13/23 at 1532, Until Sun11/19/23 at 1554, Carrier Fluid - See Admin. Inst, 0.9NS to be used as carrier fluid for intermittent small volume or piggyback medication administration as needed. Infusion rate of the carrier fluid should be set at 20 mL/hr unless the rate as the intermittent medication is less than 20 mL/hr. For intermittent medications with a rate less than 20 mL/hr set the carrier fluid at that rate of the intermittent or piggy back medication., Post-op/Post-Proc Linked Groups Order Group 1: AMIOdarone (PACERONE) tablet 400 mg (COMPLETED) 400 mg, Oral, 3 TIMES DAILY, 9 doses, First dose on Sun11/14/23 at 0900, Last dose on Sun11/16/23 at 2100, May be given by mouth or NG., Post-op/Post-Proc Followed by AMIOdarone (PACERONE) tablet 200 mgJump to med 200 mg, Oral, DAILY, 9 doses, First dose on Sun11/17/23 at 0900, Last dose on Sun11/25/23 at 0900, Post-op/Post-Proc Group 2: Multi-Vitamins tablet 1 tablet (CANCELED) 1 tablet, Per NG tube, DAILY, First dose on Sun11/14/23 at 0900, Until Discontinued, Crush for NG tube administration., Post-op/Post-Proc Or Multi-Vitamins tablet 1 tabletJump to med 1 tablet, Oral, DAILY, First dose on Sun11/14/23 at 0900, Until Discontinued, Use PO route if patient tolerating PO., Post-op/Post-Proc Group 3: Acetaminophen (TYLENOL) tablet 650 mgJump to med 650 mg, Oral, EVERY 4 HOURS NEEDED, Starting on 11/17/23 at 0000, Until 11/19/23 at 1554, Mild Pain, Moderate Pain, Severe Pain, Oral temp > 100.4 F, For mild, moderate, or severe pain (DVPRS) or CPOT greater than 2. Ok to give with opioid if frequency allows., Post-op/Post-Proc Or Acetaminophen (TYLENOL) oral solution 650 mg (CANCELED) 650 mg, Per NG tube, EVERY 4 HOURS NEEDED, Starting on 11/17/23 at 0000, Until Fatimah 11/15/23 at 0715, Mild Pain, Moderate Pain, Severe Pain, Oral temp > 100.4 F, For mild, moderate, or severe pain (DVPRS) or CPOT greater than 2. Ok to give with opioid if frequency allows., Post-op/Post-Proc Group 4: Calcium Gluconate 10 % injection 2 gJump to med 2 g, Intravenous, ADMINISTER DIRECTED, Starting on Sun11/13/23 at 1532, Until Sun11/19/23 at 1554, See admin instructions, 1. If ionized Calcium 4.1-4.5, give 2.0 gm of Calcium Gluconate IV Push over 10 minutes 2. If Calcium less than or equal to 4.0, give 4 gm Calcium Gluconate/250 mL NS IVPB over 1 hour and recheck 1 hour after completion of infusion. Repeat labs in AM. Extravasation Risk, Post-op/Post-Proc Or Calcium Gluconate 4 g in Sodium chloride 0.9%, with overfill 150 mL (total volume) IVPBJump to med 4 g, Intravenous, Administer over 60 Minutes, ADMINISTER DIRECTED, Starting on Sun11/13/23 at 1532, Until Sun11/19/23 at 1554, See admin instructions, 1. If ionized Calcium 4.1-4.5, give 2.0 gm of Calcium Gluconate IV Push over 10 minutes 2. If Calcium less than or equal to 4.0, give 4 gm Calcium Gluconate/250 mL NS IVPB over 1 hour and recheck 1 hour after completion of infusion. Repeat labs in AM. Extravasation Risk, Post-op/Post-Proc Group 5: oxyCODONE (ROXICODONE) tablet 5 mgJump to med 5 mg, Oral, EVERY 4 HOURS NEEDED, Starting on Sun11/13/23 at 1532, Until 11/19/23 at 1554, Moderate Pain, Severe Pain, PRN for moderate pain or severe pain (DVPRS) or CPOT>2. Use first if PO/NG administration available., Post-op/Post-Proc Or oxyCODONE (ROXICODONE) tablet 5 mg (CANCELED) 5 mg, Per NG tube, EVERY 4 HOURS NEEDED, Starting on Sun11/13/23 at 1532, Until Fatimah 11/15/23 at 0715, Moderate Pain, Severe Pain, PRN for moderate pain or severe pain (DVPRS) or CPOT>2. Use first if PO/NG administration available., Post-op/Post-Proc FOR RECORDS PERTAINING TO PATIENTS WHO ARE [...] BE BASED ON THE PRIMARY CLINICAL RECORDS. [facility]. provides no warranty or guarantee of the accuracy or completeness of information in this document.
== END | disposition home or self-care (01) ==
LOC: MFPLAB 14:17
PROVIDERS: PCP Family Medicine; Referring Provider Family Medicine; Visit Provider Family Medicine
DX: E78.5 Hyperlipidemia, unspecified (principal); I10 Essential (primary) hypertension; R73.02 Impaired glucose tolerance (oral)
CPT/HCPCS: 80053; 80061; 81001; 83036; 83735; 84443; 85025

== ENCOUNTER → 2025-05-18 | Outpatient (CLI) | payer MEDICARE, OTHER, SELFPAY ==
[2024-04-21 11:50] VITALS: BMI 27.5
--- NOTE | 2025-05-18 18:55 | CT_ITS ---
PROCEDURE: CHEST WITHOUT CONTRAST 05/18/2025 REASON FOR EXAM: NODULE Six-month follow-up examination. TECHNIQUE: Chest CT without contrast. Coronal and Sagittal reconstruction series were provided. One or more dose reduction techniques were used (e.g., Automated exposure control, adjustment of the mA and/or kV according to patient size, use of iterative reconstruction technique RADIATION DOSE SUMMARY: CTDlvol: 14.35 mGy DLP: 526.97 mGycm COMPARISON: Prior study dated September 29, 2024. FINDINGS: Hardware: None Lymph nodes: No suspicious lymph nodes are seen. Heart and Vasculature: The heart is nonenlarged. Mild atherosclerotic calcification of the aortic arch. Prior CABG. Coronary Artery Calcifications: Present Lungs and Airways: Stable 6 mm noncalcified nodule in the peripheral lateral aspect of the right middle lobe as seen on axial image number 92. Stable mild scarring at the lung bases. Pleura: No pleural effusion. Upper Abdomen: Tiny nonobstructive intrarenal calculi in the upper pole of the right kidney. Bones: Degenerative changes of the thoracic spine. CT/Chest without Contrast IMPRESSION: Coronary artery calcification (CAC) is is present Stable examination. 12 month follow-up recommended. Reading Location: [place] [id number]
== END | disposition home or self-care (01) ==
LOC: CT 18:36
PROVIDERS: PCP Family Medicine; Referring Provider Family Medicine; Visit Provider Family Medicine
DX: R91.1 Solitary pulmonary nodule (principal)
CPT/HCPCS: 71250

== ENCOUNTER → 2025-08-07 | Outpatient (CLI) | payer MEDICARE, OTHER, SELFPAY ==
[2024-04-21 11:50] VITALS: BMI 27.5
--- NOTE | 2025-08-07 09:01 | ECHOD_ITS ---
Reason For Study Reason For Study: CAD/ASHD Procedure This was a 2D Doppler, Color Flow transthoracic echocardiogram. The patient is in an irregular rhythm. Exam performed in department. Left Ventricle Normal left ventricle. The left ventricular ejection fraction is 55 %. No regional wall motion abnormalities noted. Right Ventricle Normal RV size. Normal systolic function. Atria The left atrium is moderately enlarged. The right atrium is mildly enlarged. Mitral Valve Mild mitral valve prolapse. Mild mitral valve prolapse, bileaflet. Mild (1+) mitral valve insufficiency. Tricuspid Valve Normal tricuspid valve. Mild (1+) tricuspid valve insufficiency. Pulmonary artery systolic pressure is 30 mmHg. Aortic Valve Trisinus/trileaflet aortic valve. Mild (1+) aortic valve insufficiency. Bioprosthetic aortic valve. Pulmonic Valve Normal pulmonic valve. Great Vessels The sinus of valsalva is moderately dilated. Measures 4.3 cm Aortic root replaced. The pulmonary artery is normal size. Inferior vena cava collapse with respiration. Pericardium/Pleural No pericardial effusion. MMode/2D Measurements & Calculations LVIDd: 5.5 cm IVSd: 1.2 cm LVOT diam: 2.3 cm LVIDs: 3.8 cm LVPWd: 1.2 cm LVOT area: 4.3 cm2 RVDd: 4.5 cm FS: 30.0 % Ao root diam: 3.6 cm LAV(MOD-bp): 88.8 ml LVAd ap4: 44.5 cm2 LAV(MOD-bp) Indexed: 42.1 ml/m2 LVLd ap4: 9.4 cm LAV(MOD-sp2): 84.8 ml EDV(MOD-sp4): 171.7 ml LAV(MOD-sp4): 79.8 ml EDV(sp4-el): 178.2 ml LVAs ap4: 27.7 cm2 LVLs ap4: 8.7 cm ESV(MOD-sp4): 76.7 ml ESV(sp4-el): 75.0 ml EF(MOD-sp4): 55.3 % EF(sp4-el): 57.9 % SV(MOD-sp4): 94.9 ml SV(sp4-el): 103.3 ml Ao sinus diam: 4.3 cm SI(MOD-sp4): 45.0 ml/m2 Ao ST Junction: 3.1 cm LA A4 area: 25.7 cm2 LA dimension(2D): 4.4 cm TAPSE: 1.5 cm RA A4 area: 23.9 cm2 Time Measurements MV dec time: 0.30 sec Doppler Measurements & Calculations MV E max torsten: 64.4 cm/sec Lat Peak E' Torsten: 13.4 cm/sec Med Peak E' Torsten: 8.8 cm/sec MV A max torsten: 48.0 cm/sec E/E' lat: 4.8 E/E' med: 7.3 MV E/A: 1.3 MV V2 max: 86.8 cm/sec MV P1/2t max torsten: 87.2 cm/sec Ao V2 max: 106.2 cm/sec MV max P.0 mmHg MV P1/2t: 125.5 msec Ao max P.5 mmHg MV V2 mean: 45.4 cm/sec MV dec slope: 203.5 cm/sec2 Ao V2 mean: 72.9 cm/sec MV mean P.00 mmHg Ao mean P.4 mmHg MV V2 VTI: 32.5 cm MVA(P1/2t): 1.8 cm2 Ao V2 VTI: 25.1 cm MVA(VTI): 2.8 cm2 AV (velocity ratio): 0.86 RIZWANA(I,D): 3.7 cm2 RIZWANA(V,D): 3.8 cm2 AI max torsten: 344.0 cm/sec LV V1 max: 96.0 cm/sec MR max torsten: 560.0 cm/sec AI max P.4 mmHg LV V1 max P.7 mmHg MR max P.5 mmHg LV V1 mean P.0 mmHg AI dec slope: 164.9 cm/sec2 LV V1 mean: 66.3 cm/sec AI P1/2t: 611.1 msec LV V1 VTI: 21.7 cm SV(LVOT): 92.5 ml PA V2 max: 90.0 cm/sec TR max torsten: 257.6 cm/sec TR max P.5 mmHg ECHO/Echo Complete Interpretation Summary The sinus of valsalva is moderately dilated. Normal left ventricle. The left ventricular ejection fraction is 55 %. The left atrium is moderately enlarged. Mild mitral valve prolapse, bileaflet Mild (1+) tricuspid valve insufficiency. Ordering Physician: Richard Hogan Referring Physician: Richard Hogan Performed By: Dk Holbrook RCS
== END | disposition home or self-care (01) ==
PROVIDERS: PCP Family Medicine; Referring Provider Internal Medicine Cardiovascular Disease; Visit Provider Internal Medicine Cardiovascular Disease
DX: Z98.890 Other specified postprocedural states (principal)
CPT/HCPCS: 93306